=== PATIENT | female | born 1970 | race Caucasian/White ===

== ENCOUNTER 2019-10-31 17:13 | Emergency (ER) | payer MEDICAID, SELFPAY | END 2019-10-31 22:04 | disposition admitted as inpatient to this hospital (09) | LOC: ER 12-05 10:31 | PROVIDERS: Emergency Provider Emergency Medicine; Family Provider Nurse Practitioner; PCP Nurse Practitioner | DX: F41.9 Anxiety disorder, unspecified (principal); R45.851 Suicidal ideations; Z91.5 Personal history of self-harm | CPT/HCPCS: 80053; 80156; 80164; 80178; 80185; 80307; 81003; 81025; 84443; 85025; 93005; 99285; A9270 ==

== ENCOUNTER 2019-10-31 17:13 | Inpatient (IN) | payer MEDICAID, SELFPAY ==
[2019-10-31 15:44] VITALS: BP 134/80; PULSE 97; RESP 16; TEMP 36.8; O2SAT 94; BMI 40.3
--- NOTE | 2019-10-31 16:26 | ED_ITS ---
Entered by Julia Payne, acting as scribe for HPI - Psych General: Chief Complaint: Psychiatric Symptoms Stated Complaint: Anxiety/SI Time Seen by Provider: 10/31/19 16:26 Source: patient Mode of arrival: EMS Limitations: no limitations History of Present Illness: HPI Narrative: 49 yo female presents to ED with complaints of suicidal ideation. The patient said she wants to kill myself because her anxiety is so severe. The patient has a specific plan to slit throat. She said she has tried suicide in the past. MD complaint: suicidal ideation Onset (ago): day(s) Duration: constant History of same: Yes Relieving factors: none Exacerbating factors: none Context: significant life stressor (anxiety) Associated psychiatric symptoms: depression and suicidal ideation Treatments prior to arrival: none If self harm: admits thoughts of self harm and has plan (to cut throat with knife) Details of plan: plans to cut her throat with a knife Review of Systems General: Reports: other (negative unless marked) Const: Denies: fever, chills, body aches, fatigue, malaise or diaphoresis Eyes: Denies: change in vision or blurry vision ENMT: Denies: throat pain, painful swallowing, hoarseness, ear pain, ear discharge, Change in hearing or nasal discharge Card: Denies: chest pain, palpitations, irregular heart rhythm, syncope, pre-syncope, shortness of breath on exertion or shortness of breath when lying down Resp: Denies: shortness of breath, productive cough, non-productive cough, wheezing, coughing up blood or chest congestion GI: Denies: abdominal pain, nausea, vomiting, vomiting blood, coffee grounds in vomit, diarrhea, constipation, cramping, blood in stool or black tarry stool : Denies: flank pain, painful urination, urinary frequency, urinary urgency, decreased urine ouput, urinary incontinence or blood in urine Musc: Denies: neck pain, back pain, extremity pain, extremity swelling, joint pain, joint swelling, joint warmth or joint stiffness Skin/Breast: Denies: rash, skin tenderness or yellow skin Neuro: Denies: headache, numbness in extremities, weakness in extremities, changes in sensation, lack of coordination, difficulty walking, dizziness, vertigo or confusion Endo: Denies: excessive thirst, tired all the time, cold intolerance, excessive sweating, flushing or hot flashes Marlon/Lymph: Denies: easy bruising, easy bleeding, petechiae or enlarged lymph nodes All/Imm: Denies: hives, throat swelling, tongue swelling, facial swelling or acute wheezing PFSH ED PFSH: Statuses (acute, chronic, etc) shown below reflect problem list status as previously entered and may not be historically accurate Social History Smoking and tobacco status: never smoked Physical Exam Const: COMMON NORMALS: no apparent distress, oriented x3, no limitations, healthy appearing and well nourished EXAM LIMITATIONS: no altered mental status GENERAL APPEARANCE: cooperative, well kempt and well developed ORIENTATION/CONSCIOUSNESS: Yes awake HENMT: COMMON NORMALS: normocephalic, head/scalp atraumatic, hearing grossly normal bilaterally, external ears normal, EAC's normal, external nose normal and moist oral mucous membranes HEAD & SCALP: normal to inspection, normocephalic and atraumatic FACE & SINUS: normal facial exam and face symmetric NOSE: external nose normal and nares normal EXTERNAL EAR: Yes external ears normal EXTERNAL AUDITORY CANAL: EAC's normal MOUTH: oral and palatal mucosa normal and tongue normal Eye: COMMON NORMALS: PERRL, EOMs intact bilaterally, conjunctivae normal and no scleral icterus GENERAL EYE: normal appearance of both eyes and normal light reflex CONJUNCTIVA: Yes conjunctivae normal SCLERA: sclerae normal CORNEA: Yes corneas normal PUPIL: Yes PERRL DIRECT OPHTHALMOSCOPY: Yes normal light reflex Neck/C-Spine: COMMON NORMALS: full ROM, no lymphadenopathy, supple, no meningeal signs and no JVD GENERAL: Yes normal visual inspection and Yes trachea midline CERVICAL SPINE: Yes cervical ROM normal Chest: COMMONS NORMALS: inspection of chest normal and palpation of chest normal Resp: COMMON NORMALS: normal respiratory effort, no retractions, no use of accessory muscles and clear to auscultation bilaterally EFFORT & INSPECTION: Yes able to speak in complete sentences AUSCULTATION: clear to auscultation bilaterally Cardio: COMMON NORMALS: no JVD, regular rate, regular rhythm, S1 normal heart sound, S2 normal heart sound, no gallops, no clicks, no murmurs and no rub JUGULAR VENOUS DISTENTION: no JVD RATE: regular rate RHYTHM: regular rhythm HEART SOUNDS: S1 normal and S2 normal GI: COMMON NORMALS: soft to palpation, non-tender, no hepatosplenomegaly and no masses INSPECTION: Yes normal to inspection PALPATION: Yes soft and Yes no hepatosplenomegaly : COMMON NORMALS: Yes no CVA tenderness BLADDER/KIDNEY EXAM: Yes no CVA tenderness Back/Pelvis: COMMON NORMALS: no CVA tenderness, thoracic and lumbar spine normal to inspection, no thoracic nor lumbar tenderness and thoraco-lumbar ROM normal Extremity: COMMON NORMALS: normal to inspection, full ROM, normal capillary refill, no joint enlargement, no clubbing, cyanosis or edema and no calf tenderness Neuro: COMMON NORMALS: oriented x3, CN's II-XII intact bilaterally, moves all extremities, no focal motor deficits and no sensory deficits noted MENINGEAL SIGNS: Yes no meningeal signs Psych: COMMON NORMALS: mental status grossly normal, thought process normal, cooperative, affect normal, speech normal and activity/motor behavior normal APPEARANCE: Yes well kempt SPEECH: Yes normal speech THOUGHT PROCESS: normal thought process Skin: COMMON NORMALS: no rashes or lesions noted, skin turgor normal, no jaundice, no petechiae and no mottling GENERAL SKIN EXAM: no rashes or lesions noted and turgor normal MDM - Psych MDM Narrative: Medical decision making narrative: The case was reviewed with Dr. Kwong and he is agreeable to admit the patient under 96-hour hold as she has at least once now tried to run out of the ER. The hold has been placed and the case was reviewed with Dr. Kwong and he agrees to admission. Lab Data: Attestation: I reviewed the patient's lab results. Labs: Lab Results 10/31/19 10/31/19 10/31/19 Range/Units 17:22 17:22 17:22 WBC (4.0-10.0) 10^3/ uL RBC (4.1-5.3) 10^6/u L Hgb (11.5-15.3) g/dL Hct (37.0-47.0) % MCV (81-99) fL MCH (28.0-34.0) pg MCHC (30.0-36.0) g/dL RDW (12.1-15.1) % Plt Count (130-400) 10^3/c mm MPV (7.4-10.4) fL Neut % (Auto) % Lymph % (Auto) % Spencer % (Auto) % Eos % (Auto) % Baso % (Auto) % Neut # (Auto) (1.8-7.7) 10^3/u L Lymph # (Auto) (0.8-4.8) 10^3/u L Spencer # (Auto) (0.2-0.9) 10^3/u L Eos # (Auto) (0.0-0.8) 10^3/u L Baso # (Auto) (0.0-0.1) 10^3/u L Nucleated RBC % (a uto) % Nucleated RBCs # /100WBC Sodium (136-145) mmol/L Potassium (3.5-5.1) mmol/L Chloride (98-107) mmol/L Carbon Dioxide (22-29) mmol/L Anion Gap (5-19) BUN (6-20) mg/dL Creatinine (0.5-0.9) mg/dL GFR Calculation (90-130) mL/min Glucose (74-109) mg/dL Calcium (8.6-10.0) mg/Dl Total Bilirubin (0.15-1.2) mg/dL AST (0-32) U/L ALT (0-33) U/L Alkaline Phosphata se (35-105) IU/L Total Protein (6.6-8.7) g/dL Albumin (3.5-5.2) g/dL Globulin (1.3-4.6) g/dL TSH (0.27-4.20) uIU/ mL HCG, Qual Negative (Negative) Urine Color Yellow (Yellow) Urine Appearance Clear (CLEAR) Urine pH 5 (5-7) Ur Specific Gravit y 1.020 (1.005-1.030) Urine Protein 3+ H (Negative) Urine Glucose (UA) Norm (Normal) Urine Ketones 2+ H (Negative) Urine Occult Blood 2+ H (Negative) Urine Nitrate Negative (Negative) Urine Bilirubin Neg (NEGATIVE) Urine Urobilinogen Norm (Negative) mg/dL Ur Leukocyte Marlys ase Negative (Negative) Urine RBC 0-4 H (0-2) /hpf Urine WBC 0-4 H (0-5) /hpf Ur Squamous Epith Cells 5-10 H (0-5) Urine Bacteria 1+ H (NONE) Hyaline Casts 10-15 H Coarse Granular Ca sts 0-4 H /lpf Urine Mucus Trace Salicylates (3-10) mg/dL Urine Opiates Scre en Negative (Negative) ng/mL Acetaminophen (10-30) ug/mL Ur Barbiturates Sc reen Negative (Negative) ng/mL Phenytoin (10-20) ug/mL Valproic Acid (50-100) mcg/mL Carbamazepine (4.0-12.0) ug/mL Ur Phencyclidine S crn Negative (Negative) ng/mL Ur Amphetamines Sc reen Negative (Negative) ng/mL U Benzodiazepines Scrn Negative (Negative) ng/mL [place] (0.6-1.2) mmol/L Urine Cocaine Scre en Negative (Negative) ng/mL U Marijuana (THC) Screen Negative (Negative) ng/mL Ethyl Alcohol (0-10) mg/dL 10/31/19 10/31/19 10/31/19 Range/Units 17:25 17:25 17:25 WBC 9.3 (4.0-10.0) 10^3/ uL RBC 4.38 (4.1-5.3) 10^6/u L Hgb 11.8 (11.5-15.3) g/dL Hct 37.7 (37.0-47.0) % MCV 86.1 (81-99) fL MCH 26.9 L (28.0-34.0) pg MCHC 31.3 (30.0-36.0) g/dL RDW 18.5 H (12.1-15.1) % Plt Count 404 H (130-400) 10^3/c mm MPV 9.4 (7.4-10.4) fL Neut % (Auto) 80.6 % Lymph % (Auto) 10.7 % Spencer % (Auto) 7.7 % Eos % (Auto) 0.2 % Baso % (Auto) 0.6 % Neut # (Auto) 7.5 (1.8-7.7) 10^3/u L Lymph # (Auto) 1.0 (0.8-4.8) 10^3/u L Spencer # (Auto) 0.7 (0.2-0.9) 10^3/u L Eos # (Auto) 0.0 (0.0-0.8) 10^3/u L Baso # (Auto) 0.1 (0.0-0.1) 10^3/u L Nucleated RBC % (a uto) 0 % Nucleated RBCs # 0.0 /100WBC Sodium 138 (136-145) mmol/L Potassium 4.1 (3.5-5.1) mmol/L Chloride 98 (98-107) mmol/L Carbon Dioxide 17 L (22-29) mmol/L Anion Gap 27.1 H (5-19) BUN 11 (6-20) mg/dL Creatinine 0.7 (0.5-0.9) mg/dL GFR Calculation 89.7 L (90-130) mL/min Glucose 160 H (74-109) mg/dL Calcium 8.7 (8.6-10.0) mg/Dl Total Bilirubin 0.7 (0.15-1.2) mg/dL AST 45 H (0-32) U/L ALT 49 H (0-33) U/L Alkaline Phosphata se 161 H (35-105) IU/L Total Protein 7.4 (6.6-8.7) g/dL Albumin 4.2 (3.5-5.2) g/dL Globulin 3.2 (1.3-4.6) g/dL TSH 1.38 (0.27-4.20) uIU/ mL HCG, Qual (Negative) Urine Color (Yellow) Urine Appearance (CLEAR) Urine pH (5-7) Ur Specific Gravit y (1.005-1.030) Urine Protein (Negative) Urine Glucose (UA) (Normal) Urine Ketones (Negative) Urine Occult Blood (Negative) Urine Nitrate (Negative) Urine Bilirubin (NEGATIVE) Urine Urobilinogen (Negative) mg/dL Ur Leukocyte Marlys ase (Negative) Urine RBC (0-2) /hpf Urine WBC (0-5) /hpf Ur Squamous Epith Cells (0-5) Urine Bacteria (NONE) Hyaline Casts Coarse Granular Ca sts /lpf Urine Mucus Salicylates < 0.3 L (3-10) mg/dL Urine Opiates Scre en (Negative) ng/mL Acetaminophen < 5.0 L (10-30) ug/mL Ur Barbiturates Sc reen (Negative) ng/mL Phenytoin 0.8 L (10-20) ug/mL Valproic Acid 2.8 L (50-100) mcg/mL Carbamazepine 2.0 L (4.0-12.0) ug/mL Ur Phencyclidine S crn (Negative) ng/mL Ur Amphetamines Sc reen (Negative) ng/mL U Benzodiazepines Scrn (Negative) ng/mL [place] 0.1 L (0.6-1.2) mmol/L Urine Cocaine Scre en (Negative) ng/mL U Marijuana (THC) Screen (Negative) ng/mL Ethyl Alcohol 268 H (0-10) mg/dL EKG Data^: EKG 1: Attestation: I personally reviewed and interpreted this EKG as follows: (Normal sinus rhythm at 109 beats a minute, no acute ST or T wave changes, normal axis. Normal QTC.) Discharge Plan Discharge Patient Disposition: Admitted As Inpatient Admit Provider: Antonio Kwong Clinical Impression: Suicidal ideation Condition: Stable Referrals: Anahi Schulz FNP [Primary Care Provider] - Discharge Date/Time: 10/31/19 22:04 Coding Level of Care Code ED Qa Automation Developer for Chg F[employer] The documentation recorded by the Kerry schulz Valerie R, accurately reflects the service I personally performed and the decisions made by Felicitas khan Eli N
--- NOTE | 2019-10-31 16:30 | ECG_ITS ---
Measurements Intervals [place] Rate: 109 P: NC: 0 QRS: 63 QRSD: 97 T: 30 QT: 352 QTc: 475 Sinus tachycardia Lead V2 /V3 reversal ABNORMAL RHYTHM ECG Compared to ECG 10/12/2019 07:33:08 Sinus rhythm no longer present Electronically Signed On 11-01-2019 16:43:11 TECHNICAL SALES ASSOCIATE by Asher Saxena M.D. [email or web address]
[2019-10-31 17:30] LABS: Basophils # 0.1 10^3/uL (0.0-0.1); Basophils % 0.6 %; Eosinophils % 0.2 %; Hematocrit 37.7 % (37.0-47.0); Hemoglobin 11.8 g/dL (11.5-15.3); Lymphocytes % 10.7 %; Mean Corpuscular HGB Conc 31.3 g/dL (30.0-36.0); Mean Corpuscular Hemoglobin 26.9 pg (28.0-34.0); Mean Corpuscular Volume 86.1 fL (81-99); Mean Platelet Volume 9.4 fL (7.4-10.4); Monocytes # 0.7 10^3/uL (0.2-0.9); Monocytes % 7.7 %; Neutrophils # 7.5 10^3/uL (1.8-7.7); Neutrophils % 80.6 %; Nucleated Red Blood Cells % 0 %; Platelet Count 404 10^3/cmm (130-400); Red Blood Count 4.38 10^6/uL (4.1-5.3); Red Cell Distribution Width 18.5 % (12.1-15.1); White Blood Count 9.3 10^3/uL (4.0-10.0)
[2019-10-31 17:34] LABS: HCG Qualitative Urine. Negative (Negative)
[2019-10-31 17:47] LABS: Lithium 0.1 mmol/L (0.6-1.2)
[2019-10-31 17:52] LABS: Add Urine Microscopic? YES; Bilirubin Urine Neg (NEGATIVE); Blood Urine 2+ (Negative); Glucose Urine UA Norm (Normal); Ketones Urine 2+ (Negative); Leukocyte Esterase Urine Negative (Negative); Nitrate Urine Negative (Negative); Protein Urine 3+ (Negative); Urine Appearance Clear (CLEAR); Urine Color Yellow (Yellow); Urobilinogen Urine Norm (Negative); pH Urine 5 (5-7)
[2019-10-31 17:53] LABS: RBC Urine 0-4 /hpf (0-2); WBC Urine 0-4 /hpf (0-5)
[2019-10-31 17:54] LABS: Add Urine Culture? No; Bacteria Urine 1+; Coarse Granular Casts Urine 0-4 /lpf; Mucus Urine TRACE
[2019-10-31 18:02] LABS: Amphetamines Screen Urine Negative (Negative); Barbiturates Screen Urine Negative (Negative); Benzodiazepines Screen Urine Negative (Negative); Cocaine Screen Urine Negative (Negative); Opiate Screen Urine Negative (Negative); PCP Screen Urine Negative (Negative); THC Screen Urine Negative (Negative)
[2019-10-31 18:11] LABS: Alanine Aminotransferase 49 U/L (0-33); Albumin Level 4.2 g/dL (3.5-5.2); Alcohol Level 268 mg/dL (0-10); Alkaline Phosphatase 161 IU/L (35-105); Anion Gap 27.1 (5-19); Aspartate Amino Transferase 45 U/L (0-32); Blood Urea Nitrogen 11 mg/dL (6-20); Calcium 8.7 mg/Dl (8.6-10.0); Carbon Dioxide 17 mmol/L (22-29); Chloride 98 mmol/L (98-107); Globulin 3.2 g/dL (1.3-4.6); Glomerular Filtration Rate 89.7 mL/min (90-130); Glucose 160 mg/dL (74-109); Phenytoin Dilantin 0.8 ug/mL (10-20); Potassium 4.1 mmol/L (3.5-5.1); Sodium 138 mmol/L (136-145); Thyroid Stimulating Hormone 1.38 uIU/mL (0.27-4.20); Total Bilirubin 0.7 mg/dL (0.15-1.2); Total Protein 7.4 g/dL (6.6-8.7); Valproic Acid Level 2.8 mcg/mL (50-100)
[2019-10-31 18:12] LABS: Acetaminophen < 5.0 ug/mL (10-30); Salicylate < 0.3 mg/dL (3-10)
--- NOTE | 2019-10-31 18:20 | PC.NURSE ---
pt reports anxiety. pt still vomiting. ed provider notified. orders received.
[2019-10-31] MEDS: haloperidol inj 5 mg/mL INJ 1 mL IM (18:53)
[2019-10-31] MEDS: ondansetron 2 mg/ML SDV 2 mL 4 MG IVP (19:13)
[2019-10-31] MEDS: folic acid 1 MG, multivitamin inj 10 ML, thiamine 100 MG in sodium chloride 0.9% 1,000 ML 252.8 MG IV (19:14)
[2019-10-31 21:54] VITALS: BP 114/76; PULSE 88; RESP 18; TEMP 36.9; O2SAT 96
[2019-10-31 22:00] VITALS: BP 126/79; PULSE 110; RESP 17; TEMP 37.1; O2SAT 95
[2019-11-01] MEDS: ondansetron 4 MG Tablet PO (00:27)
[2019-11-01 06:00] VITALS: BP 135/75; PULSE 98; RESP 19; TEMP 37.9; O2SAT 98
[2019-11-01] MEDS: folic acid 1 mg Tablet PO (09:15)
[2019-11-01] MEDS: multivitamin therapeutic Tablet 1 TAB PO (09:15)
[2019-11-01] MEDS: thiamine 100 mg Tablet PO (09:15)
[2019-11-01] MEDS: hyDROXYzine 25 mg Capsule PO (09:15)
[2019-11-01 13:46] VITALS: BP 145/88; PULSE 81; RESP 18; TEMP 37; O2SAT 96
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
[2019-11-01 19:40] VITALS: BP 124/74; PULSE 77; RESP 19; TEMP 37.1; O2SAT 94
[2019-11-01] MEDS: prazosin 1 mg Capsule 2 MG PO (21:17)
[2019-11-01] MEDS: trazodone 50 mg Tablet PO (21:17)
[2019-11-02 06:00] VITALS: BP 121/81; PULSE 74; RESP 19; TEMP 36.9; O2SAT 96
[2019-11-02] MEDS: multivitamin therapeutic Tablet 1 TAB PO (08:37)
[2019-11-02] MEDS: thiamine 100 mg Tablet PO (08:37)
[2019-11-02] MEDS: folic acid 1 mg Tablet PO (08:37)
[2019-11-02] MEDS: hyDROXYzine 25 mg Capsule PO (08:37)
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
[2019-11-02] MEDS: escitalopram 10 mg Tablet PO (12:28)
[2019-11-02 14:00] VITALS: BP 121/81; RESP 19; TEMP 36.9; O2SAT 96
[2019-11-02 14:48] VITALS: BP 136/97; PULSE 87; RESP 20; TEMP 37; O2SAT 98
[2019-11-02 20:00] VITALS: BP 136/82; PULSE 78; RESP 18; TEMP 37.2; O2SAT 98
[2019-11-02] MEDS: prazosin 1 mg Capsule 2 MG PO (20:07)
[2019-11-02] MEDS: trazodone 50 mg Tablet PO (20:20)
[2019-11-03 05:56] VITALS: BP 125/86; PULSE 79; RESP 18; TEMP 36.4; O2SAT 95
[2019-11-03] MEDS: escitalopram 10 mg Tablet PO (08:15)
[2019-11-03] MEDS: folic acid 1 mg Tablet PO (08:15)
[2019-11-03] MEDS: multivitamin therapeutic Tablet 1 TAB PO (08:15)
[2019-11-03] MEDS: thiamine 100 mg Tablet PO (08:16)
[2019-11-03] MEDS: hyDROXYzine 25 mg Capsule PO (08:16)
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
--- NOTE | 2019-11-03 13:49 | PC.SOCIAL ---
medicaid transport trip #[id number]
== END 2019-11-03 14:18 | disposition home or self-care (01) | DRG 897 ==
LOC: ER 18:28 → NP 18:39
PROVIDERS: Admitting Provider Psychiatry & Neurology Psychiatry; Emergency Provider Emergency Medicine; Family Provider Nurse Practitioner; PCP Nurse Practitioner; Visit Provider Psychiatry & Neurology Psychiatry
DX: F10.229 Alcohol dependence with intoxication, unspecified (principal); R45.851 Suicidal ideations; F32.9 Major depressive disorder, single episode, unspecified; Y90.8 Blood alcohol level of 240 mg/100 ml or more
CPT/HCPCS: 12345; 80053; 80156; 80164; 80178; 80185; 80307; 81003; 81025; 84443; 85025; 93005; 96372; 96374; 96375; 99285; A9270; J1630; J2405; J3411; J3490; J7030; Q0162

== ENCOUNTER 2019-11-22 16:40 | Emergency (ER) | payer MEDICAID, SELFPAY ==
[2019-11-22 16:43] VITALS: BP 160/97; PULSE 105; RESP 18; TEMP 36.8; O2SAT 96; BMI 40.7
--- NOTE | 2019-11-22 16:49 | ED_ITS ---
Entered by Julia Payne, acting as scribe for Erwin Liu MD, [facility] HPI - Alcohol General: Chief Complaint: Alcohol Stated Complaint: ETOH Time Seen by Provider: 11/22/19 16:49 Source: patient, EMS and RN notes reviewed Mode of arrival: EMS Limitations: no limitations History of Present Illness: HPI narrative: 49 yo female presents to ED stating she needs help to quit drinking. She said she is really drunk on vodka and has been drinking since Sunday (11.18.2019). She said she hasn't been eating. She said she has R sided abdominal pain. She said she has vomited about 4 times today and denies diarrhea. 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 Chronic alcohol use: Yes Previous visits for alcohol intoxication: Yes Recent trauma: No Associated symptoms: Reports abdominal pain, nausea and vomiting Treatments prior to arrival: none Review of Systems General: Reports: 10 or more systems reviewed and unremarkable except in HPI and below Const: Denies: fever, chills or body aches Eyes: Reports: blind spots; Denies: change in vision or blurry vision ENMT: Denies: throat pain, enlarged tonsils, painful swallowing, hoarseness, mouth pain or swelling of lips/tongue Card: Reports: chest pain; Denies: palpitations, irregular heart rhythm, edema or swelling of feet/ankles Resp: Denies: shortness of breath, productive cough or non-productive cough GI: Reports: abdominal pain, nausea and vomiting : Denies: flank pain, difficulty urinating, painful urination, urinary frequency, urinary urgency or urinary hesitancy Musc: Reports: extremity pain (left shoulder), joint pain (left shoulder) and limited range of motion; Denies: neck pain, back pain or extremity swelling Skin/Breast: Denies: rash, itching or redness Neuro: Denies: headache, numbness in extremities or weakness in extremities Endo: Denies: excessive urination, excessive thirst or tired all the time PFSH ED PFSH: Statuses (acute, chronic, etc) shown below reflect problem list status as previously entered and may not be historically accurate Medical History (Updated 11/22/19 @ 20:49 by Erwin Liu MD, [facility]) Arthritis of right knee (Acute) Depressive disorder (Inactive) Hx of cholecystitis (Acute) Suicidal behavior without attempted self-injury (Acute) in the past Suicidal thoughts (Acute) in the past Surgical History (Updated 11/11/19 @ 16:53 by SOLEDAD Carlson) History of (Acute) Hx of gastric bypass (Acute) Hx of hernia repair (Acute) Hx of tubal ligation (Acute) Hx of unilateral salpingectomy (Acute) Right Social History Smoking and tobacco status: never smoked Alcohol intake: current Alcohol intake frequency: 0-2 Drinks per Day Alcohol type: hard liquor Desire information about alcohol rehabilitation?: Yes (wants to go to [facility] but can't stay sober ) Counseling given: Yes (patient has been in the ER for alcohol abuse ) Physical Exam Const: COMMON NORMALS: no apparent distress, average body habitus, oriented x3, no limitations, healthy appearing, alert and well nourished HENMT: COMMON NORMALS: normocephalic, head/scalp atraumatic and moist oral mucous membranes HEAD & SCALP: normocephalic and atraumatic Eye: COMMON NORMALS: PERRL, EOMs intact bilaterally, conjunctivae normal and no scleral icterus CONJUNCTIVA: Yes conjunctivae normal PUPIL: Yes PERRL Neck/C-Spine: COMMON NORMALS: full ROM, supple, no meningeal signs, no JVD and no carotid bruits Chest: COMMONS NORMALS: inspection of chest normal and palpation of chest normal Resp: COMMON NORMALS: normal respiratory effort, no retractions, no use of accessory muscles, clear to auscultation bilaterally and percussion normal AUSCULTATION: clear to auscultation bilaterally PERCUSSION: percussion normal Cardio: COMMON NORMALS: no JVD, regular rate, regular rhythm, S1 normal heart sound, S2 normal heart sound, no gallops, no clicks, no murmurs, no rub and peripheral pulses 2+ throughout RATE: regular rate RHYTHM: regular rhythm HEART SOUNDS: S1 normal and S2 normal PERIPHERAL PULSES: pulses 2+ throughout GI: COMMON NORMALS: normal to inspection, nondistended, normoactive bowel sounds, soft to palpation, non-tender, no hepatosplenomegaly, no masses and no bruits PALPATION: Yes soft and Yes no hepatosplenomegaly : COMMON NORMALS: Yes no CVA tenderness BLADDER/KIDNEY EXAM: Yes no CVA tenderness Back/Pelvis: COMMON NORMALS: no CVA tenderness Extremity: COMMON NORMALS: normal to inspection, full ROM, normal capillary refill, no calf tenderness and no pedal edema Neuro: COMMON NORMALS: oriented x3 SENSORIUM/ORIENTATION: Yes alert MENINGEAL SIGNS: Yes no meningeal signs Skin: COMMON NORMALS: no rashes or lesions noted, no wounds, skin turgor normal, no jaundice, no petechiae and no mottling GENERAL SKIN EXAM: no rashes or lesions noted and turgor normal Course Vital Signs: Vital signs: Vital Signs Temperature 98.2 F 11/22/19 16:43 Pulse Rate 128 H 11/22/19 21:49 Respiratory Rate 16 11/22/19 21:49 Blood Pressure 136/89 11/22/19 21:49 Pulse Oximetry 94 11/22/19 21:49 MDM - Alcohol MDM Narrative: Medical decision making narrative: 49-year-old female patient with a history of alcohol use disorder who presents today after a several day binge of vodka. She presents wanting help with her alcohol problem. Evaluation in the emergency department is unremarkable and she is discharged home with and advised to call the [facility] which is a detox program. This facility does not provide detoxification programs. She voiced understanding and states that she would call the [facility]. Medical Records: Attestation: I reviewed the patient's medical records. Lab Data: Attestation: I reviewed the patient's lab results. Labs: Lab Results 11/22/19 11/22/19 11/22/19 Range/Units 17:20 17:20 17:32 WBC 6.3 (4.0-10.0) 10^3/ uL RBC 4.55 (4.1-5.3) 10^6/u L Hgb 12.1 (11.5-15.3) g/dL Hct 38.6 (37.0-47.0) % MCV 84.8 (81-99) fL MCH 26.6 L (28.0-34.0) pg MCHC 31.3 (30.0-36.0) g/dL RDW 18.4 H (12.1-15.1) % Plt Count 304 (130-400) 10^3/c mm MPV 9.7 (7.4-10.4) fL Neut % (Auto) 78.6 % Lymph % (Auto) 14.7 % [place] % (Auto) 5.6 % Eos % (Auto) 0.2 % Baso % (Auto) 0.6 % Neut # (Auto) 4.9 (1.8-7.7) 10^3/u L Lymph # (Auto) 0.9 (0.8-4.8) 10^3/u L [place] # (Auto) 0.4 (0.2-0.9) 10^3/u L Eos # (Auto) 0.0 (0.0-0.8) 10^3/u L Baso # (Auto) 0.0 (0.0-0.1) 10^3/u L Nucleated RBC % (a uto) 0 % Nucleated RBCs # 0.0 /100WBC Sodium 141 (136-145) mmol/L Potassium 4.0 (3.5-5.1) mmol/L Chloride 99 (98-107) mmol/L Carbon Dioxide 21 L (22-29) mmol/L Anion Gap 25.0 H (5-19) BUN 12 (6-20) mg/dL Creatinine 0.5 (0.5-0.9) mg/dL GFR Calculation 132.2 H (90-130) mL/min Glucose 98 (74-109) mg/dL Calcium 8.8 (8.5-10.5) mg/dL Total Bilirubin 1.1 (0.15-1.2) mg/dL AST 66 H (0-32) U/L ALT 92 H (0-33) U/L Alkaline Phosphata se 206 H (35-105) IU/L Total Protein 7.5 (6.6-8.7) g/dL Albumin 4.2 (3.5-5.2) g/dL Globulin 3.3 (1.3-4.6) g/dL HCG, Qual Negative (Negative) Salicylates < 0.3 L (3-10) mg/dL Urine Opiates Scre en (Negative) ng/mL Acetaminophen < 5.0 L (10-30) ug/mL Ur Barbiturates Sc reen (Negative) ng/mL Ur Phencyclidine S crn (Negative) ng/mL Ur Amphetamines Sc reen (Negative) ng/mL U Benzodiazepines Scrn (Negative) ng/mL Urine Cocaine Scre en (Negative) ng/mL U Marijuana (THC) Screen (Negative) ng/mL Ethyl Alcohol 280 H (0-10) mg/dL 11/22/19 Range/Units 17:32 WBC (4.0-10.0) 10^3/ uL RBC (4.1-5.3) 10^6/u L Hgb (11.5-15.3) g/dL Hct (37.0-47.0) % MCV (81-99) fL MCH (28.0-34.0) pg MCHC (30.0-36.0) g/dL RDW (12.1-15.1) % Plt Count (130-400) 10^3/c mm MPV (7.4-10.4) fL Neut % (Auto) % Lymph % (Auto) % [place] % (Auto) % Eos % (Auto) % Baso % (Auto) % Neut # (Auto) (1.8-7.7) 10^3/u L Lymph # (Auto) (0.8-4.8) 10^3/u L [place] # (Auto) (0.2-0.9) 10^3/u L Eos # (Auto) (0.0-0.8) 10^3/u L Baso # (Auto) (0.0-0.1) 10^3/u L Nucleated RBC % (a uto) % Nucleated RBCs # /100WBC Sodium (136-145) mmol/L Potassium (3.5-5.1) mmol/L Chloride (98-107) mmol/L Carbon Dioxide (22-29) mmol/L Anion Gap (5-19) BUN (6-20) mg/dL Creatinine (0.5-0.9) mg/dL GFR Calculation (90-130) mL/min Glucose (74-109) mg/dL Calcium (8.5-10.5) mg/dL Total Bilirubin (0.15-1.2) mg/dL AST (0-32) U/L ALT (0-33) U/L Alkaline Phosphata se (35-105) IU/L Total Protein (6.6-8.7) g/dL Albumin (3.5-5.2) g/dL Globulin (1.3-4.6) g/dL HCG, Qual (Negative) Salicylates (3-10) mg/dL Urine Opiates Scre en Negative (Negative) ng/mL Acetaminophen (10-30) ug/mL Ur Barbiturates Sc reen Negative (Negative) ng/mL Ur Phencyclidine S crn Negative (Negative) ng/mL Ur Amphetamines Sc reen Negative (Negative) ng/mL U Benzodiazepines Scrn Negative (Negative) ng/mL Urine Cocaine Scre en Negative (Negative) ng/mL U Marijuana (THC) Screen Negative (Negative) ng/mL Ethyl Alcohol (0-10) mg/dL Discharge Plan Discharge Patient Disposition: Home, Self-Care Clinical Impression: Alcohol use disorder, severe, dependence Condition: Stable Prescriptions: Continued hydroxyzine pamoate [Vistaril] 25 mg capsule 25 mg PO BID PRNRF: 0 prazosin 2 mg capsule 2 mg PO ONCE RF: 0 Vivitrol 380 mg suspension,extended rel recon 380 mg IM ONCE RF: 0 ferrous sulfate 325 mg (65 mg iron) tablet 325 mg PO BID Qty: 60 RF: 5 diclofenac potassium 50 mg tablet 50 mg PO BID Qty: 60 RF: 2 escitalopram oxalate 10 mg Tablet 10 mg PO DAILY 30 Days Qty: 30 RF: 1 Discharge Orders: Discharge Order (Routine); Ordered 11/22/19 Ordered By: Erwin Liu Referrals: Anahi Schulz FNP [Primary Care Provider] - Patient Instructions: Abuse of Alcohol (ED) Activity Restrictions/Additional Instructions: Return for any new or worsening symptoms. Follow-up with your primary care provider within 3 days. Call the [facility] tomorrow and discuss an intake with them so they can help you with your alcohol abuse disorder. Discharge Date/Time: 11/22/19 21:53 Coding Level of Care Code ED Laser Engineer for Hannah Fulton The documentation recorded by the Kerry schulz Valerie R accurately reflects the service I personally performed and the decisions made by Alexa khan Adegoke I, MD, [facility] Nov 22, 2019 16:40
[2019-11-22] MEDS: ondansetron 2 mg/ML SDV 2 mL 4 MG IVP (17:14)
[2019-11-22 17:27] LABS: Basophils % 0.6 %; Eosinophils % 0.2 %; Hematocrit 38.6 % (37.0-47.0); Hemoglobin 12.1 g/dL (11.5-15.3); Lymphocytes # 0.9 10^3/uL (0.8-4.8); Lymphocytes % 14.7 %; Mean Corpuscular HGB Conc 31.3 g/dL (30.0-36.0); Mean Corpuscular Hemoglobin 26.6 pg (28.0-34.0); Mean Corpuscular Volume 84.8 fL (81-99); Mean Platelet Volume 9.7 fL (7.4-10.4); Monocytes # 0.4 10^3/uL (0.2-0.9); Monocytes % 5.6 %; Neutrophils # 4.9 10^3/uL (1.8-7.7); Neutrophils % 78.6 %; Nucleated Red Blood Cells % 0 %; Platelet Count 304 10^3/cmm (130-400); Red Blood Count 4.55 10^6/uL (4.1-5.3); Red Cell Distribution Width 18.4 % (12.1-15.1); White Blood Count 6.3 10^3/uL (4.0-10.0)
[2019-11-22 17:42] LABS: Alanine Aminotransferase 92 U/L (0-33); Albumin Level 4.2 g/dL (3.5-5.2); Alcohol Level 280 mg/dL (0-10); Alkaline Phosphatase 206 IU/L (35-105); Aspartate Amino Transferase 66 U/L (0-32); Blood Urea Nitrogen 12 mg/dL (6-20); Calcium 8.8 mg/dL (8.5-10.5); Carbon Dioxide 21 mmol/L (22-29); Chloride 99 mmol/L (98-107); Globulin 3.3 g/dL (1.3-4.6); Glomerular Filtration Rate 132.2 mL/min (90-130); Glucose 98 mg/dL (74-109); Sodium 141 mmol/L (136-145); Total Bilirubin 1.1 mg/dL (0.15-1.2); Total Protein 7.5 g/dL (6.6-8.7)
[2019-11-22 17:49] LABS: HCG Qualitative Urine. Negative (Negative)
[2019-11-22 17:56] LABS: Acetaminophen < 5.0 ug/mL (10-30); Salicylate < 0.3 mg/dL (3-10)
[2019-11-22] MEDS: folic acid 1 MG, multivitamin inj 10 ML, thiamine 100 MG in sodium chloride 0.9% 1,000 ML 252.8 MG IV (18:01)
--- NOTE | 2019-11-22 19:02 | PC.NURSE ---
REPORT RECEIVED FROM GERSON KEITA AND CARE TRANSFERRED TO GERSON ROTH
[2019-11-22 19:23] VITALS: PULSE 112; RESP 14; O2SAT 91
[2019-11-22 19:25] VITALS: BP 97/55
[2019-11-22 19:44] LABS: Amphetamines Screen Urine Negative (Negative); Barbiturates Screen Urine Negative (Negative); Benzodiazepines Screen Urine Negative (Negative); Cocaine Screen Urine Negative (Negative); Opiate Screen Urine Negative (Negative); PCP Screen Urine Negative (Negative); THC Screen Urine Negative (Negative)
[2019-11-22 21:49] VITALS: BP 136/89; PULSE 128; RESP 16; O2SAT 94
== END 2019-11-22 21:53 | disposition home or self-care (01) ==
PROVIDERS: Emergency Provider Family Medicine; Family Provider Nurse Practitioner; PCP Nurse Practitioner
DX: F10.20 Alcohol dependence, uncomplicated (principal); Y90.8 Blood alcohol level of 240 mg/100 ml or more
CPT/HCPCS: 36415; 80053; 80307; 81025; 85025; 96360; 96361; 96374; 99283; J2405; J3411; J3490; J7030

== ENCOUNTER → 2019-11-24 15:37 | Outpatient (BNVA) | payer MEDICAID, SELFPAY | PROVIDERS: Family Provider Nurse Practitioner; PCP Nurse Practitioner; Visit Provider Nurse Practitioner Psychiatric/Mental Health | DX: F10.20 Alcohol dependence, uncomplicated (principal); F43.12 Post-traumatic stress disorder, chronic | CPT/HCPCS: 99214 ==

== ENCOUNTER → 2019-12-03 15:25 | Outpatient (BNVA) | payer MEDICAID, SELFPAY | PROVIDERS: Family Provider Nurse Practitioner; PCP Nurse Practitioner; Visit Provider Social Worker Clinical | DX: F43.12 Post-traumatic stress disorder, chronic (principal); F10.20 Alcohol dependence, uncomplicated | CPT/HCPCS: 90834 ==

== ENCOUNTER 2019-12-13 18:08 | Emergency (ER) | payer MEDICAID, SELFPAY | END 2019-12-13 23:57 | disposition admitted as inpatient to this hospital (09) | LOC: ER 01-19 07:21 | PROVIDERS: Emergency Provider Family Medicine; Family Provider Nurse Practitioner; PCP Nurse Practitioner | DX: F31.9 Bipolar disorder, unspecified (principal); F10.220 Alcohol dependence with intoxication, uncomplicated; Y90.8 Blood alcohol level of 240 mg/100 ml or more; R45.851 Suicidal ideations | CPT/HCPCS: 76705; 80048; 80053; 80306; 80307; 81001; 81025; 83690; 84443; 85025; 96361; 96374; 96375; 96376; 99284; 99285; J2405; J7030 ==

== ENCOUNTER 2019-12-13 18:08 | Inpatient (IN) | payer MEDICAID, SELFPAY ==
[2019-12-13 18:13] VITALS: BMI 39.5
--- NOTE | 2019-12-13 18:15 | ED_ITS ---
Entered by Yael Wilde, acting as scribe for Aldo Jenkins DO HPI - Psych General: Chief Complaint: Psychiatric Symptoms Stated Complaint: SI; ETOH Time Seen by Provider: 12/13/19 18:14 Source: patient Mode of arrival: EMS Limitations: no limitations History of Present Illness: HPI Narrative: 49 yo Female presents to ED with complaint of suicidal ideation and ETOH. Pt states that she found out that her mom on Sunday and she has been drinking ever since. Pt states that she is suicidal and has a plan to cut herself. MD complaint: suicidal ideation Onset (ago): week(s) Duration: constant History of same: Yes Relieving factors: none Exacerbating factors: none Context: recent alcohol abuse and significant life stressor Associated psychiatric symptoms: suicidal ideation Associated symptoms: Reports depression and suicidal ideation; Deny auditory hallucinations, delusions or homicidal ideation If self harm: admits thoughts of self harm and has plan Review of Systems Const: Denies: fever, chills, body aches, fatigue, malaise or night sweats Eyes: Denies: change in vision or blurry vision ENMT: Denies: throat pain, oral sores/lesions, dental pain, nasal discharge or nasal congestion Card: Denies: chest pain, palpitations, irregular heart rhythm, edema, syncope, shortness of breath on exertion, shortness of breath when lying down or leg pain with exertion Resp: Denies: shortness of breath, productive cough, non-productive cough or wheezing GI: Denies: abdominal pain, nausea, vomiting, vomiting blood, coffee grounds in vomit, difficulty swallowing, heartburn/indigestion, diarrhea, constipation, cramping, blood in stool or black tarry stool : Denies: flank pain, painful urination, urinary frequency, urinary urgency, urinary incontinence or blood in urine Musc: Denies: neck pain, back pain, extremity pain, extremity swelling, joint pain or joint swelling Skin/Breast: Denies: rash, itching or redness Neuro: Denies: headache, numbness in extremities, weakness in extremities, changes in sensation, lack of coordination, difficulty walking, frequent falls, dizziness, vertigo or confusion Psych: Reports: depression and suicidal ideation; Denies: auditory hallucinations or homicidal ideation Endo: Denies: excessive urination, excessive thirst, tired all the time or cold intolerance Marlon/Lymph: Denies: easy bruising, easy bleeding, petechiae, enlarged lymph nodes or tender lymph nodes PFSH ED PFSH: Medical History (Updated 12/15/19 @ 14:57 by Aldo Jenkins DO) Alcohol intoxication Arthritis of right knee Dehydration Depressive disorder Hx of cholecystitis Suicidal behavior without attempted self-injury in the past Suicidal thoughts in the past Surgical History History of Hx of gastric bypass Hx of hernia repair Hx of tubal ligation Hx of unilateral salpingectomy Right Family History Other Diabetes Heart disease Social History Smoking and tobacco status: never smoked Alcohol intake: current Alcohol intake frequency: 0-2 Drinks per Day Alcohol type: hard liquor Desire information about alcohol rehabilitation?: Yes (wants to go to [facility] but can't stay sober ) Counseling given: Yes (patient has been in the ER for alcohol abuse ) Physical Exam Const: COMMON NORMALS: average body habitus, oriented x3 and alert GENERAL APPEARANCE: cooperative, comfortable, well kempt and well developed NUTRITIONAL APPEARANCE: obese ORIENTATION/CONSCIOUSNESS: Yes awake, Yes oriented to person and Yes oriented to place HENMT: COMMON NORMALS: normocephalic, head/scalp atraumatic, EAC's normal, TM's normal bilaterally, external nose normal, moist oral mucous membranes and oropharynx normal HEAD & SCALP: normocephalic and atraumatic NOSE: external nose normal EXTERNAL AUDITORY CANAL: EAC's normal TYMPANIC MEMBRANE: TM's normal bilaterally MOUTH: oral and palatal mucosa normal, lip normal and tongue normal THROAT: posterior oropharynx normal and tonsils normal Eye: COMMON NORMALS: PERRL, EOMs intact bilaterally, conjunctivae normal and no scleral icterus CONJUNCTIVA: Yes conjunctivae normal PUPIL: Yes PERRL Neck/C-Spine: COMMON NORMALS: full ROM, no lymphadenopathy, supple, no meningeal signs and thyroid normal THYROID: thyroid normal and asymmetrical Lymph: LYMPHATIC: no lymphadenopathy noted Resp: COMMON NORMALS: normal respiratory effort, no retractions, no use of accessory muscles and clear to auscultation bilaterally AUSCULTATION: clear to auscultation bilaterally Cardio: COMMON NORMALS: regular rate and regular rhythm RATE: regular rate RHYTHM: regular rhythm HEART SOUNDS: no murmurs GI: COMMON NORMALS: normal to inspection, nondistended, normoactive bowel sounds, soft to palpation and no hepatosplenomegaly PALPATION: Yes soft and Yes no hepatosplenomegaly : COMMON NORMALS: Yes no CVA tenderness BLADDER/KIDNEY EXAM: Yes no CVA tenderness Back/Pelvis: COMMON NORMALS: no CVA tenderness LUMBAR SPINE/LOWER BACK: Yes normal to inspection Extremity: COMMON NORMALS: no clubbing, cyanosis or edema, no calf tenderness and no pedal edema Neuro: COMMON NORMALS: oriented x3 SENSORIUM/ORIENTATION: Yes alert, Yes oriented to person and Yes oriented to place MENINGEAL SIGNS: Yes no meningeal signs Psych: APPEARANCE: Yes well kempt THOUGHT CONTENT: No delusion(s) Skin: COMMON NORMALS: no rashes or lesions noted and skin turgor normal GENERAL SKIN EXAM: no rashes or lesions noted and turgor normal MDM - Psych Lab Data: Labs: Lab Results 12/13/19 12/13/19 12/13/19 Range/Units 18:50 18:50 18:50 WBC 6.1 (4.0-10.0) 10^3/ uL RBC 4.23 (4.1-5.3) 10^6/u L Hgb 11.5 (11.5-15.3) g/dL Hct 36.5 L (37.0-47.0) % MCV 86.3 (81-99) fL MCH 27.2 L (28.0-34.0) pg MCHC 31.5 (30.0-36.0) g/dL RDW 18.1 H (12.1-15.1) % Plt Count 169 (130-400) 10^3/c mm MPV 9.1 (7.4-10.4) fL Neut % (Auto) 83.2 % Lymph % (Auto) 11.2 % Dodge % (Auto) 4.9 % Eos % (Auto) 0.2 % Baso % (Auto) 0.3 % Neut # (Auto) 5.1 (1.8-7.7) 10^3/u L Lymph # (Auto) 0.7 L (0.8-4.8) 10^3/u L Dodge # (Auto) 0.3 (0.2-0.9) 10^3/u L Eos # (Auto) 0.0 (0.0-0.8) 10^3/u L Baso # (Auto) 0.0 (0.0-0.1) 10^3/u L Nucleated RBC % (a uto) 0 % Nucleated RBCs # 0.0 /100WBC Sodium 134 L (136-145) mmol/L Potassium 4.4 (3.5-5.1) mmol/L Chloride 91 L (98-107) mmol/L Carbon Dioxide 21 L (22-29) mmol/L Anion Gap 26.4 H (5-19) BUN 9 (6-20) mg/dL Creatinine 0.6 (0.5-0.9) mg/dL GFR Calculation 107.2 (90-130) mL/min Glucose 110 (65-115) mg/dL Calculated Osmolal ity (285-295) mOsm/k g Calcium 8.5 (8.5-10.5) mg/dL Total Bilirubin 2.6 H (0.15-1.2) mg/dL AST 94 H (0-32) U/L ALT 76 H (0-33) U/L Alkaline Phosphata se 222 H (35-105) IU/L Total Protein 7.3 (6.6-8.7) g/dL Albumin 4.0 (3.5-5.2) g/dL Globulin 3.3 (1.3-4.6) g/dL Lipase 17 (13-60) U/L TSH 1.54 (0.27-4.20) uIU/ mL HCG, Qual (Negative) Urine Color (Yellow) Urine Appearance (CLEAR) Urine pH (5-7) Ur Specific Gravit y (1.005-1.030) Urine Protein (Negative) Urine Glucose (UA) (Normal) Urine Ketones (Negative) Urine Blood (Negative) Urine Nitrate (Negative) Urine Bilirubin (NEGATIVE) Urine Urobilinogen (Negative) mg/dL Ur Leukocyte Marlys ase (Negative) Urine RBC (0-2) /hpf Urine WBC (0-5) /hpf Ur Squamous Epith Cells (0-5) Urine Bacteria (NONE) Salicylates < 0.3 L (3-10) mg/dL Urine Opiates Scre en (Negative) ng/mL Acetaminophen < 5.0 L (10-30) ug/mL Ur Barbiturates Sc reen (Negative) ng/mL Ur Phencyclidine S crn (Negative) ng/mL Ur Amphetamines Sc reen (Negative) ng/mL U Benzodiazepines Scrn (Negative) ng/mL Urine Cocaine Scre en (Negative) ng/mL U Marijuana (THC) Screen (Negative) ng/mL Ethyl Alcohol 413 H* (0-10) mg/dL 12/13/19 12/13/19 12/13/19 Range/Units 19:06 19:06 19:06 WBC (4.0-10.0) 10^3/ uL RBC (4.1-5.3) 10^6/u L Hgb (11.5-15.3) g/dL Hct (37.0-47.0) % MCV (81-99) fL MCH (28.0-34.0) pg MCHC (30.0-36.0) g/dL RDW (12.1-15.1) % Plt Count (130-400) 10^3/c mm MPV (7.4-10.4) fL Neut % (Auto) % Lymph % (Auto) % Dodge % (Auto) % Eos % (Auto) % Baso % (Auto) % Neut # (Auto) (1.8-7.7) 10^3/u L Lymph # (Auto) (0.8-4.8) 10^3/u L Dodge # (Auto) (0.2-0.9) 10^3/u L Eos # (Auto) (0.0-0.8) 10^3/u L Baso # (Auto) (0.0-0.1) 10^3/u L Nucleated RBC % (a uto) % Nucleated RBCs # /100WBC Sodium (136-145) mmol/L Potassium (3.5-5.1) mmol/L Chloride (98-107) mmol/L Carbon Dioxide (22-29) mmol/L Anion Gap (5-19) BUN (6-20) mg/dL Creatinine (0.5-0.9) mg/dL GFR Calculation (90-130) mL/min Glucose (65-115) mg/dL Calculated Osmolal ity (285-295) mOsm/k g Calcium (8.5-10.5) mg/dL Total Bilirubin (0.15-1.2) mg/dL AST (0-32) U/L ALT (0-33) U/L Alkaline Phosphata se (35-105) IU/L Total Protein (6.6-8.7) g/dL Albumin (3.5-5.2) g/dL Globulin (1.3-4.6) g/dL Lipase (13-60) U/L TSH (0.27-4.20) uIU/ mL HCG, Qual Negative (Negative) Urine Color Yellow (Yellow) Urine Appearance Sl cloudy A (CLEAR) Urine pH 5 (5-7) Ur Specific Gravit y 1.010 (1.005-1.030) Urine Protein 1+ H (Negative) Urine Glucose (UA) Norm (Normal) Urine Ketones 1+ H (Negative) Urine Blood 2+ H (Negative) Urine Nitrate Negative (Negative) Urine Bilirubin Neg (NEGATIVE) Urine Urobilinogen 1 H (Negative) mg/dL Ur Leukocyte Marlys ase Negative (Negative) Urine RBC 0-4 H (0-2) /hpf Urine WBC 0-4 H (0-5) /hpf Ur Squamous Epith Cells 5-10 H (0-5) Urine Bacteria 1+ H (NONE) Salicylates (3-10) mg/dL Urine Opiates Scre en Negative (Negative) ng/mL Acetaminophen (10-30) ug/mL Ur Barbiturates Sc reen Negative (Negative) ng/mL Ur Phencyclidine S crn Negative (Negative) ng/mL Ur Amphetamines Sc reen Negative (Negative) ng/mL U Benzodiazepines Scrn Negative (Negative) ng/mL Urine Cocaine Scre en Negative (Negative) ng/mL U Marijuana (THC) Screen Negative (Negative) ng/mL Ethyl Alcohol (0-10) mg/dL 12/13/19 Range/Units 21:40 WBC (4.0-10.0) 10^3/ uL RBC (4.1-5.3) 10^6/u L Hgb (11.5-15.3) g/dL Hct (37.0-47.0) % MCV (81-99) fL MCH (28.0-34.0) pg MCHC (30.0-36.0) g/dL RDW (12.1-15.1) % Plt Count (130-400) 10^3/c mm MPV (7.4-10.4) fL Neut % (Auto) % Lymph % (Auto) % Dodge % (Auto) % Eos % (Auto) % Baso % (Auto) % Neut # (Auto) (1.8-7.7) 10^3/u L Lymph # (Auto) (0.8-4.8) 10^3/u L Dodge # (Auto) (0.2-0.9) 10^3/u L Eos # (Auto) (0.0-0.8) 10^3/u L Baso # (Auto) (0.0-0.1) 10^3/u L Nucleated RBC % (a uto) % Nucleated RBCs # /100WBC Sodium 135 L (136-145) mmol/L Potassium 4.4 (3.5-5.1) mmol/L Chloride 91 L (98-107) mmol/L Carbon Dioxide 23 (22-29) mmol/L Anion Gap 25.4 H (5-19) BUN 10 (6-20) mg/dL Creatinine 0.5 (0.5-0.9) mg/dL GFR Calculation 132.2 H (90-130) mL/min Glucose 108 (65-115) mg/dL Calculated Osmolal ity 277 L (285-295) mOsm/k g Calcium 8.4 L (8.5-10.5) mg/dL Total Bilirubin (0.15-1.2) mg/dL AST (0-32) U/L ALT (0-33) U/L Alkaline Phosphata se (35-105) IU/L Total Protein (6.6-8.7) g/dL Albumin (3.5-5.2) g/dL Globulin (1.3-4.6) g/dL Lipase (13-60) U/L TSH (0.27-4.20) uIU/ mL HCG, Qual (Negative) Urine Color (Yellow) Urine Appearance (CLEAR) Urine pH (5-7) Ur Specific Gravit y (1.005-1.030) Urine Protein (Negative) Urine Glucose (UA) (Normal) Urine Ketones (Negative) Urine Blood (Negative) Urine Nitrate (Negative) Urine Bilirubin (NEGATIVE) Urine Urobilinogen (Negative) mg/dL Ur Leukocyte Marlys ase (Negative) Urine RBC (0-2) /hpf Urine WBC (0-5) /hpf Ur Squamous Epith Cells (0-5) Urine Bacteria (NONE) Salicylates (3-10) mg/dL Urine Opiates Scre en (Negative) ng/mL Acetaminophen (10-30) ug/mL Ur Barbiturates Sc reen (Negative) ng/mL Ur Phencyclidine S crn (Negative) ng/mL Ur Amphetamines Sc reen (Negative) ng/mL U Benzodiazepines Scrn (Negative) ng/mL Urine Cocaine Scre en (Negative) ng/mL U Marijuana (THC) Screen (Negative) ng/mL Ethyl Alcohol (0-10) mg/dL Discharge Plan Discharge Admit Provider: Davina Hernandez Clinical Impression: Suicidal ideation, Alcohol use disorder, severe, dependence, Bipolar disorder Condition: Stable 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: ED Discharge Assessment Last Done: 12/13/19 23:52 Discharge Date/Time: 12/13/19 23:57 Coding Level of Care Code ED Ict Customer Support Officer for Chg Fwd Exam Comprehensive The documentation recorded by the Andry schulz Carmen, accurately reflects the service I personally performed and the decisions made by Alice khan Curtis L, Dec 13, 2019 18:08
[2019-12-13 18:18] VITALS: BP 133/67; PULSE 102; RESP 18; TEMP 36.6; O2SAT 99
[2019-12-13 19:01] LABS: Basophils % 0.3 %; Eosinophils % 0.2 %; Hematocrit 36.5 % (37.0-47.0); Hemoglobin 11.5 g/dL (11.5-15.3); Lymphocytes # 0.7 10^3/uL (0.8-4.8); Lymphocytes % 11.2 %; Mean Corpuscular HGB Conc 31.5 g/dL (30.0-36.0); Mean Corpuscular Hemoglobin 27.2 pg (28.0-34.0); Mean Corpuscular Volume 86.3 fL (81-99); Mean Platelet Volume 9.1 fL (7.4-10.4); Monocytes # 0.3 10^3/uL (0.2-0.9); Monocytes % 4.9 %; Neutrophils # 5.1 10^3/uL (1.8-7.7); Neutrophils % 83.2 %; Nucleated Red Blood Cells % 0 %; Platelet Count 169 10^3/cmm (130-400); Red Blood Count 4.23 10^6/uL (4.1-5.3); Red Cell Distribution Width 18.1 % (12.1-15.1); White Blood Count 6.1 10^3/uL (4.0-10.0)
[2019-12-13 19:20] LABS: HCG Qualitative Urine. Negative (Negative)
[2019-12-13 19:25] LABS: Alanine Aminotransferase 76 U/L (0-33); Alkaline Phosphatase 222 IU/L (35-105); Anion Gap 26.4 (5-19); Aspartate Amino Transferase 94 U/L (0-32); Blood Urea Nitrogen 9 mg/dL (6-20); Calcium 8.5 mg/dL (8.5-10.5); Carbon Dioxide 21 mmol/L (22-29); Chloride 91 mmol/L (98-107); Globulin 3.3 g/dL (1.3-4.6); Glomerular Filtration Rate 107.2 mL/min (90-130); Glucose 110 mg/dL (65-115); Potassium 4.4 mmol/L (3.5-5.1); Sodium 134 mmol/L (136-145); Thyroid Stimulating Hormone 1.54 uIU/mL (0.27-4.20); Total Bilirubin 2.6 mg/dL (0.15-1.2); Total Protein 7.3 g/dL (6.6-8.7)
[2019-12-13 19:32] LABS: Add Urine Culture? No; Add Urine Microscopic? YES; Bacteria Urine 1+; Bilirubin Urine Neg (NEGATIVE); Blood Urine 2+ (Negative); Glucose Urine UA Norm (Normal); Ketones Urine 1+ (Negative); Leukocyte Esterase Urine Negative (Negative); Nitrate Urine Negative (Negative); Protein Urine 1+ (Negative); RBC Urine 0-4 /hpf (0-2); Urine Color Yellow (Yellow); Urobilinogen Urine 1 mg/dL (Negative); WBC Urine 0-4 /hpf (0-5); pH Urine 5 (5-7)
[2019-12-13 19:33] LABS: Acetaminophen < 5.0 ug/mL (10-30); Salicylate < 0.3 mg/dL (3-10)
[2019-12-13 19:34] LABS: Alcohol Level 413 mg/dL (0-10)
[2019-12-13 19:34] LABS: Amphetamines Screen Urine Negative (Negative); Barbiturates Screen Urine Negative (Negative); Benzodiazepines Screen Urine Negative (Negative); Cocaine Screen Urine Negative (Negative); Opiate Screen Urine Negative (Negative); PCP Screen Urine Negative (Negative); THC Screen Urine Negative (Negative)
--- NOTE | 2019-12-13 19:38 | US_ITS ---
WS: [id number] ABDOMINAL ULTRASOUND LIMITED REASON FOR VISIT: elevated T bili and alk phos TECHNIQUE: Grayscale and Doppler ultrasound examination of the abdomen. FINDINGS: Pancreas: The pancreas appears to be within normal limits Abdominal aorta and IVC: Appears normal. Liver: Liver measures 13.0 cm in length. Coarse echo pattern consistent with fatty infiltration. Mild ly dilated intrahepatic ducts. Status post cholecystectomy. The common bile duct measured 0.97 cm no lesions in the ducts are seen. Right kidney: Right kidney measures 12.1 cm x 5.4 cm x 5.2 cm. Right kidney cortex measures the violet x of the right kidney measured 1.60 cm. cm. No hydronephrosis no stones. US/US gall bladder [id number] IMPRESSION: Mildly dilated common bile duct and intrahepatic ducts. Status post cholecystectomy. Fatty infiltration of the liver.
[2019-12-13] MEDS: sodium chloride 0.9% 1,000 ML 999 ML IV (20:45)
[2019-12-13] MEDS: ondansetron 2 mg/ML SDV 2 mL 4 MG IVP (21:15)
[2019-12-13 22:06] LABS: Anion Gap 25.4 (5-19); Blood Urea Nitrogen 10 mg/dL (6-20); Calcium 8.4 mg/dL (8.5-10.5); Carbon Dioxide 23 mmol/L (22-29); Chloride 91 mmol/L (98-107); Glomerular Filtration Rate 132.2 mL/min (90-130); Glucose 108 mg/dL (65-115); Osmolality Calculated 277 mOsm/kg (285-295); Potassium 4.4 mmol/L (3.5-5.1); Sodium 135 mmol/L (136-145)
--- NOTE | 2019-12-13 22:58 | P.HP_ITS ---
Providers/Chief Complaint Admitting Physician: Davina Hernandez MD Primary Care Provider: SOLEDAD Carlson Chief Complaint: acute etoh intox;suicidal ideation;96 hour hold History of Present Illness Yeimy Perry is a 49 year old with recurrent inpatient [facility] admissions for alcohol abuse, reported lethality and alcohol intoxication or withdrawal. She presents today c/o drinking continuously since Sunday(today is Sunday) and having thoughts about hurting herself with a knife. Said she needed help with suicidal thoughts and her tremors that were starting, hence came to ER. Multiple episodes of nausea and vomiting+. No hematemesis. No kosta or BRPR. C/o chronic epigastric and RUQ pain ongoing since 4 months. Bedsise US performed in ER per verbal report shows liver cirrhosis. She is s/p cholecystectomy. Other notable labs upon admission are anion gap 25 (chronic), mild hyponatremia and hypochloremia, transaminitis AST 94, ALT 76, ALP 222 (chronic), T. bili 2.6, higher than at previous admissions. Tylenol level <5, alcohol level 413. No h/o fever. Abd/pelvis CT from 04/2019 showed normal liver. Unknown hepatitis serology status Review of Systems General: Reports: 10 or more systems reviewed and unremarkable except in HPI and below Const: Denies: fever, chills or body aches Eyes: Denies: change in vision, blurry vision or photophobia ENMT: Reports: hoarseness; Denies: throat pain, enlarged tonsils, painful swallowing or nasal congestion Card: Denies: chest pain, palpitations, irregular heart rhythm, edema, swelling of feet/ankles, lightheadedness, pre-syncope, shortness of breath on exertion or shortness of breath when lying down Resp: Denies: shortness of breath, productive cough, non-productive cough, wheezing, stridor, pain on inspiration, change in phlegm color, coughing up blood or chest congestion GI: Reports: abdominal pain, nausea, vomiting and diarrhea; Denies: vomiting blood, coffee grounds in vomit, difficulty swallowing, heartburn/indigestion, constipation, cramping, change in stool character, blood in stool or black tarry stool : Denies: flank pain, difficulty urinating, painful urination, urinary frequency, urinary urgency, urinary hesitancy or blood in urine Musc: Denies: neck pain, back pain, extremity pain, joint swelling, joint warmth or deformity Neuro: Denies: headache, numbness in extremities, weakness in extremities, changes in sensation, difficulty walking, frequent falls, dizziness, vertigo, behavioral changes, slurred speech or seizure-like activity Psych: Denies: anxiety, depression, suicidal ideation or homicidal ideation Endo: Denies: excessive urination, excessive thirst, tired all the time, cold intolerance or hot flashes Marlon/Lymph: Denies: easy bruising or easy bleeding Medications/Allergies Allergies Allergy/AdvReac Type Severity Reaction Status Date / Time acetaminophen [From Rodney] Allergy ADR-Itching Verified 11/11/19 15:37 hydrocodone [From Rodney] Allergy ADR-Itching Verified 12/13/19 18:22 PFSH Acute PFSH: Medical History Arthritis of right knee Depressive disorder Hx of cholecystitis Suicidal behavior without attempted self-injury in the past Suicidal thoughts in the past Surgical History History of Hx of gastric bypass Hx of hernia repair Hx of tubal ligation Hx of unilateral salpingectomy Right Family History Other Diabetes Heart disease Social History Smoking and tobacco status: never smoked Alcohol intake: current Alcohol intake frequency: 0-2 Drinks per Day Alcohol type: hard liquor Desire information about alcohol rehabilitation?: Yes (wants to go to [facility] but can't stay sober ) Counseling given: Yes (patient has been in the ER for alcohol abuse ) Vitals/I&O/Wt Last Vital Signs Temp 97.8 F 12/13/19 18:18 Pulse 102 H 12/13/19 18:18 Resp 18 12/13/19 18:18 BP 133/67 12/13/19 18:18 Pulse Ox 99 12/13/19 18:18 Weight last 48 hrs Weight 117.934 kg Physical Exam Narrative: EXAM NARRATIVE: GEN: Awake, alert and oriented, starting to have fine tremors in B/L hands CVS: S1S2 N RS: CTA B/L Abd: Soft, nt/nd , bs+ SCREED PERSON: no focal neuro deficits EXT: 1+ LE pitting edema Data : 12/13/19 18:50 12/13/19 21:40 A&P Assessment and plan (1) Alcohol use disorder, severe, dependence: Status: Acute Code(s): F10.20 - Alcohol dependence, uncomplicated (2) Alcohol intoxication: Status: Acute Code(s): F10.929 - Alcohol use, unspecified with intoxication, unspecified (3) Alcohol withdrawal: Status: Acute Code(s): F10.239 - Alcohol dependence with withdrawal, unspecified (4) Dehydration: Status: Acute Code(s): E86.0 - Dehydration Additional A&P Information Admit to ICU in view of alcohol intoxication, now starting to experience withdrawal Currently on 96 hr hold due to reported suicidal ideation Start Ativan per [facility] protocol for withdrawal Labs c/w dehydration likely from Gi losses from multiple episodes of vomiting start D5NS with added thiamine and MV Thiamine 100mg po daily aspiration precautions,, seizure precautions Chronic abdominal pain, likely 2/2 excessive vomiting. US performed at bedside today with cirrhosis per verbal report. Final report pending Transmainitis likely in view of cirrhosis, most likely due to alcohol abuse. Will check INR, hepatitis serologies NPU contacted from ER- in view of high risk of withdrawal, recommended medicine admit followed by psych assessment tomorrow. DVT ppx: lovenox Full code Attestations Medical Necessity Statement*: 96 hour hold in view of alcohol intoxication, now showing signs of withdrawal, suicidal ideation Coding Level of Care Code Acute Professional Employer Consultant for Hannah Fulton Diagnoses Alcohol use disorder, severe, dependence F10.20 Alcohol intoxication F10.929 Alcohol withdrawal F10.239 Dehydration E86.0
[2019-12-13 23:20] LABS: Lipase 17 U/L (13-60)
[2019-12-13] MEDS: LORazepam 2 mg/mL INJ 1 mL IVP (23:42)
[2019-12-13 23:52] VITALS: BP 142/75; PULSE 74; RESP 16; O2SAT 99
[2019-12-14] VITALS (23 sets, daily range): BP systolic 108–138; BP diastolic 58–92; PULSE 68–111; RESP 12–26; TEMP 36.8–37.2; O2SAT 87–98
[2019-12-14] MEDS: enoxaparin 40 mg/0.4 mL Syringe SUBCUT (00:15)
[2019-12-14] MEDS: dextrose 5%-sod chloride 0.9% 1,000 ML 100 ML IV ×3 (00:15→20:06)
[2019-12-14] MEDS: ondansetron 2 mg/ML SDV 2 mL 4 MG IVP ×2 (00:16→10:09)
[2019-12-14 04:59] LABS: Basophils % 0.4 %; Eosinophils % 0.8 %; Hematocrit 29.4 % (37.0-47.0); Hemoglobin 9.5 g/dL (11.5-15.3); Lymphocytes # 0.5 10^3/uL (0.8-4.8); Lymphocytes % 10.6 %; Mean Corpuscular HGB Conc 32.3 g/dL (30.0-36.0); Mean Corpuscular Hemoglobin 28.4 pg (28.0-34.0); Mean Platelet Volume 10.2 fL (7.4-10.4); Monocytes # 0.5 10^3/uL (0.2-0.9); Monocytes % 9.2 %; Neutrophils # 3.9 10^3/uL (1.8-7.7); Neutrophils % 78.6 %; Nucleated Red Blood Cells % 0 %; Platelet Count 120 10^3/cmm (130-400); Red Blood Count 3.34 10^6/uL (4.1-5.3); White Blood Count 4.9 10^3/uL (4.0-10.0)
[2019-12-14 05:29] LABS: Alanine Aminotransferase 55 U/L (0-33); Albumin Level 3.5 g/dL (3.5-5.2); Alkaline Phosphatase 170 IU/L (35-105); Anion Gap 20.9 (5-19); Aspartate Amino Transferase 60 U/L (0-32); Blood Urea Nitrogen 10 mg/dL (6-20); Carbon Dioxide 24 mmol/L (22-29); Chloride 92 mmol/L (98-107); Globulin 2.5 g/dL (1.3-4.6); Glomerular Filtration Rate 132.2 mL/min (90-130); Glucose 125 mg/dL (65-115); Potassium 3.9 mmol/L (3.5-5.1); Sodium 133 mmol/L (136-145); Total Bilirubin 2.6 mg/dL (0.15-1.2)
[2019-12-14 05:38] LABS: Hepatitis A Antibody IgM. Non-Reactive (Nonreactive); Hepatitis B Surface AB. 3.5 (0-8.5); Hepatitis B Surface Antigen. Non-Reactive (Nonreactive); Hepatitis C Virus Antibody Non-Reactive (Nonreactive)
[2019-12-14] MEDS: multivitamin therapeutic Tablet 1 TAB PO (08:02)
[2019-12-14] MEDS: thiamine 100 mg Tablet PO (08:02)
[2019-12-14] MEDS: folic acid 1 mg Tablet PO (08:02)
--- NOTE | 2019-12-14 11:42 | PC.CHAP ---
Pastoral Care Encounter/Spiritual Assessment Type of Contact [x] Declined correctional treatment specialist visit [] Patient/Family/Request visit [] Outpatient visit [] Follow-up visit [] Physician referral [] Code/Alert [] Routine visit [] Staff referral [] Actively dying [] Patient sleeping [] Family support [] [] Out of room [] Palliative care [] [] Receiving care in room [] Pre-surgical visit [] Trauma [] Long length of stay [] ICU visit [] Other: Relational/Emotional Strength [] Patient feels connected with others/family/visitors/staff [] Distress [] Loneliness/isolation [] Abandonment Spirituality of Patient [] Person of Esthela [] Attends Hoahaoism of their Esthela [] Believes in Prayer [] Reads Bible or Yazidi materials [] There are 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 [] Prayer [] Active listening [] Non-anxious presence [] Spiritual/emotional support [] Crisis/trauma care [] Spiritual counseling [] Bereavement support [] Provided bereavement packet [] Provided Bible/devotional materials [] Provided toy/stuffed animal, coloring book to patient or family member [] Provided Communion [] Anointing/Elbert [] Salvation [] Completed spiritual assessment [] Other: Impact on Illness or Injury [] Angry [] Fearful [] Anxious [] Often cries [] Exhaustion [] Unable to work [] Unable to attend baptism [] Unable to walk/stand [] Unable to read [] Unable to drive [] Unable to eat/drink [] Unable to sleep [] Unable to be with family [] Patient intubated [] Other: Summary No visitors allowed. Time spent with patient
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
[2019-12-14] MEDS: promethazine 25 mg Tablet 12.5 MG PO (17:11)
--- NOTE | 2019-12-14 17:49 | P.PN_ITS ---
Subjective Subjective: Interval history: This morning she is experiencing hallucinations, hearing voices of conversations playing out in her head, as well as seeing things moving around in her room which should not be there. She is otherwise not in pain or discomfort. Vitals/I&O/Wt Last Vital Signs Temp 98.2 F 12/14/19 16:00 Pulse 68 12/14/19 16:00 Resp 18 12/14/19 16:00 BP 124/86 12/14/19 14:00 Pulse Ox 95 12/14/19 16:00 12/14/19 12/14/19 12/14/19 06:59 14:59 22:59 Intake Total 517.327 / 899.144 3057.402 / 1454.402 127.865 / 1582.267 Output Total 300 / 300 Balance 517.327 / 823.675 1154.402 / 1154.402 127.865 / 1282.267 Weight last 48 hrs Weight 117.934 kg Physical Exam Const: COMMON NORMALS: no apparent distress and oriented x3 HENMT: COMMON NORMALS: oropharynx normal Neck/C-Spine: COMMON NORMALS: no JVD Resp: COMMON NORMALS: normal respiratory effort and clear to auscultation bilaterally AUSCULTATION: clear to auscultation bilaterally Cardio: COMMON NORMALS: no JVD, regular rhythm, S1 normal heart sound, S2 normal heart sound and no murmurs RHYTHM: regular rhythm HEART SOUNDS: S1 normal and S2 normal GI: COMMON NORMALS: normal to inspection, nondistended, normoactive bowel sounds and soft to palpation PALPATION: Yes soft and Yes tender (Mild abdominal tenderness on palpation) Extremity: COMMON NORMALS: no joint enlargement and no pedal edema Neuro: COMMON NORMALS: oriented x3 and moves all extremities Skin: COMMON NORMALS: no rashes or lesions noted GENERAL SKIN EXAM: no rashes or lesions noted Data : 12/14/19 04:19 12/14/19 04:19 A&P Assessment and plan (1) Alcohol withdrawal: With delirium tremens. Hallucinations, tachycardia. She was otherwise calm, cooperative while on Precedex drip. Attempted to wean down, she became anxious. Attempt was made to restart Precedex, however, then developed pauses on telemetry. This had to be discontinued. Continue withdrawal care per [facility] protocol. Monitor on telemetry. Transfer to neuropsychiatric unit when she is a little bit more stable. Status: Acute Code(s): F10.239 - Alcohol dependence with withdrawal, unspecified (2) Alcohol use disorder, severe, dependence: Continue vitamins. Encourage cessation. Status: Acute Code(s): F10.20 - Alcohol dependence, uncomplicated (3) Alcohol intoxication: Status: Acute Code(s): F10.929 - Alcohol use, unspecified with intoxication, unspecified (4) Dehydration: Status: Acute Code(s): E86.0 - Dehydration Additional A&P Information Mild abdominal tenderness on palpation: Reports history of pancreatitis, however, lipase is low. Transaminitis: She is status post cholecystectomy. Mildly dilated common bile duct and intrahepatic ducts. Fatty liver infiltration. Improving. Monitor. Concern for possible fibrosis or early cirrhosis. May need additional assessment when she is closer to baseline. Anemia: Hemoglobin down to 9.5. Likely secondary to IV hydration with decrease in all cell lines. Suicidal ideation: Pending additional assessment on your psychiatric unit. Continue one-to-one sitter. Attestations Medical Necessity Statement*: Continue admission first management and severe alcohol withdrawal, pending assessment on your psychiatric unit. Coding Level of Care Code Acute Django Developer for Hannah Fulton Diagnoses Alcohol withdrawal F10.239 Alcohol use disorder, severe, dependence F10.20 Alcohol intoxication F10.929 Dehydration E86.0
--- NOTE | 2019-12-14 18:09 | PC.NURSE ---
Precedex stopped. Patient began getting sick to stomach, felt like she was going to puke. She then began having pauses on the heart monitor. Heart rate dropped to 30. Patient assessed precedex stopped. Dr. Hoffman notified and ordered to continue CIWA protocol with Ativan if needed and stop Precedex. Phenergan given.
[2019-12-14] MEDS: LORazepam 2 mg/mL INJ 1 mL IVP (20:05)
[2019-12-15] VITALS (7 sets, daily range): BP systolic 123–156; BP diastolic 68–110; PULSE 90–103; RESP 16–23; TEMP 36.9–37.3; O2SAT 94–95
[2019-12-15] MEDS: enoxaparin 40 mg/0.4 mL Syringe SUBCUT (01:07)
[2019-12-15] MEDS: LORazepam 2 mg/mL INJ 1 mL IVP ×2 (01:07→04:29)
[2019-12-15] MEDS: dextrose 5%-sod chloride 0.9% 1,000 ML 100 ML IV (04:29)
[2019-12-15 05:11] LABS: Basophils % 0.3 %; Eosinophils # 0.1 10^3/uL (0.0-0.8); Eosinophils % 1.4 %; Hematocrit 30.8 % (37.0-47.0); Hemoglobin 9.7 g/dL (11.5-15.3); Lymphocytes # 0.7 10^3/uL (0.8-4.8); Lymphocytes % 20.6 %; Mean Corpuscular HGB Conc 31.5 g/dL (30.0-36.0); Mean Corpuscular Hemoglobin 27.5 pg (28.0-34.0); Mean Corpuscular Volume 87.3 fL (81-99); Mean Platelet Volume 10.7 fL (7.4-10.4); Monocytes # 0.3 10^3/uL (0.2-0.9); Monocytes % 9.1 %; Neutrophils # 2.4 10^3/uL (1.8-7.7); Neutrophils % 68.3 %; Nucleated Red Blood Cells % 0 %; Platelet Count 81 10^3/cmm (130-400); Red Blood Count 3.53 10^6/uL (4.1-5.3); Red Cell Distribution Width 17.8 % (12.1-15.1); White Blood Count 3.5 10^3/uL (4.0-10.0)
[2019-12-15 05:22] LABS: Alanine Aminotransferase 44 U/L (0-33); Albumin Level 2.9 g/dL (3.5-5.2); Alkaline Phosphatase 139 IU/L (35-105); Anion Gap 14.7 (5-19); Aspartate Amino Transferase 53 U/L (0-32); Blood Urea Nitrogen 7 mg/dL (6-20); Calcium 8.7 mg/dL (8.5-10.5); Carbon Dioxide 27 mmol/L (22-29); Chloride 95 mmol/L (98-107); Glomerular Filtration Rate 132.2 mL/min (90-130); Glucose 124 mg/dL (65-115); Potassium 3.7 mmol/L (3.5-5.1); Sodium 133 mmol/L (136-145); Total Bilirubin 2.3 mg/dL (0.15-1.2); Total Protein 5.9 g/dL (6.6-8.7)
[2019-12-15] MEDS: folic acid 1 mg Tablet PO (09:16)
[2019-12-15] MEDS: thiamine 100 mg Tablet PO (09:16)
[2019-12-15] MEDS: LORazepam 2 mg Tablet PO ×2 (09:17→14:19)
[2019-12-15] MEDS: multivitamin therapeutic Tablet 1 TAB PO (09:17)
--- NOTE | 2019-12-15 09:17 | PC.NURSE ---
PRN ATIVAN ATIVAN 2MG PO PER CIWA SCORE OF 10 PER PROTOCOL. WILL CONTINUE TO MONITOR FOR MEDICATION EFFECTIVENESS.
--- NOTE | 2019-12-15 09:49 | PM.NPN ---
Subjective NPU Subjective: Interval history: The patient feels calmer today. She acknowledges that her sobriety is fragile and does not endure severe psychosocial hits such as the of her mother. Many an alcoholic has relapsed when such a tragedy strikes. She is now planning to reconnect with her recovery group at [facility]. She and her planner scheduler are formulating a safe exit plan. Medications: Reviewed: Yes Medication Review Details: Patient is basically on vitamin replacement. Mental Status Exam MSE Comments: This is a 49-year-old female who presents at her stated age. Mood is moderately dysphoric and affect is flat. She is found lying in her bed. She says she had not slept in a couple days and needs to get some sleep. She is presently in a conversation with a planner scheduler about return to outpatient treatment and her recovery group, with which she has been compliant. She plans to get a new sponsor. Insight and judgment are therefore intact. Thought processes are integrated and free of racing, blocking and looseness of association. Speech is of normal rate and volume, without dysarthria, aprosody or pressure. There is no evidence of psychosis, such as but not limited to hallucinations delusions or ideas of reference. Cognitive functions including orientation, reason, insight and judgment appear to have been preserved. The patient denies suicidal or homicidal ideation, plan or intent. Vitals/I&O/Wt Last Vital Signs Temp 98.5 F 12/15/19 00:00 Pulse 95 12/15/19 06:00 Resp 17 12/15/19 06:00 BP 134/98 12/15/19 06:00 Pulse Ox 94 12/15/19 06:00 12/14/19 12/15/19 12/15/19 23:59 07:59 15:59 Intake Total 1370.735 838.333 240 Output Total 600 1800 600 Balance 770.735 -961.667 -360 Weight last 48 hrs Weight 260 lb Data NPU : 12/15/19 03:43 12/15/19 03:43 A&P Assessment and plan (1) Iron deficiency anemia: Iron supplement. Status: Acute Qualifiers: Iron deficiency anemia type: other iron deficiency Qualified Code(s): D50.8 - Other iron deficiency anemias Code(s): D50.9 - Iron deficiency anemia, unspecified Involuntary Hold Information 96 Hour Hold: 96 Hour Involuntary Admission: Yes 96 Hour Hold Ending Date: 12/19/19 96 Hour Hold Ending Time: 21:28 Attestations NPU Medical Necessity Statement*: The patient is still sickly and in the final stages of withdrawal from alcohol. I anticipate 4-6 midnights additional hospitalization. Time Spent in Patient Care: Greater than 35 minutes (>than 50% of time spent in counselling and/or direct pt care on unit). Coding Level of Care Code Acute Medical Billing Representative for Hannah Fulton Diagnoses Iron deficiency anemia D50.8 Iron deficiency anemia type: other iron deficiency
--- NOTE | 2019-12-15 09:58 | PC.NURSE ---
0837 Transfered patient to NPU with computer systems security analyst via wheelchair and all belongings taken. Only c/o is of sore right ankle when standing, thinks she spained it when fell at home.
--- NOTE | 2019-12-15 10:09 | ECG_ITS ---
Measurements Intervals Jet Rate: 88 P: 43 ND: 164 QRS: 62 QRSD: 88 T: 53 QT: 366 QTc: 445 SINUS RHYTHM WARNING: DATA QUALITY MAY AFFECT INTERPRETATION Compared to ECG 10/31/2019 17:26:55 Sinus tachycardia no longer present Electronically Signed On 12-15-2019 15:29:05 GRAIN OILSEED OR PASTURE FARM MANAGER by Erica Raines M.D. [email or web address]
--- NOTE | 2019-12-15 10:20 | PC.NURSE ---
PRN ATIVAN FOLLOW UP MEDICATION EFFECTIVE. PATIENT LYING IN BED RESTIONG RESPIRATIONS EVEN AND UNLABORED.
--- NOTE | 2019-12-15 11:30 | PM.PN ---
Subjective Subjective: Interval history: Yeimy reported she was not nauseated this morning. She had a slight headache. Denies confusion. Able to ambulate. Medications: Reviewed: Yes Vitals/I&O/Wt Last Vital Signs Temp 98.5 F 12/15/19 00:00 Pulse 95 12/15/19 06:00 Resp 17 12/15/19 06:00 BP 134/98 12/15/19 06:00 Pulse Ox 94 12/15/19 06:00 12/14/19 12/15/19 12/15/19 22:59 06:59 14:59 Intake Total 1376.885 / 2831.287 838.333 / 3669.620 240 / 240 Output Total 600 / 900 1800 / 2700 600 / 600 Balance 776.885 / 1931.287 -961.667 / 969.620 -360 / -360 Weight last 48 hrs Weight 117.934 kg Physical Exam Narrative: EXAM NARRATIVE: General exam no apparent distress Cardiovascular regular in rhythm without murmur Lungs clear Abdomen is soft, positive bowel sounds Extremities no cyanosis clubbing or edema Data : 12/15/19 03:43 12/15/19 03:43 A&P Assessment and plan (1) Alcohol withdrawal: With DTs. This appears to have resolved. Hallucinations, tachycardia have passed. Currently on no medicines other than some Ativan as needed. Previously required Precedex She is ready for transfer to the neuropsychiatric unit Status: Acute Code(s): F10.239 - Alcohol dependence with withdrawal, unspecified (2) Alcohol use disorder, severe, dependence: Continue thiamine, multivitamin. Psychiatric evaluation Status: Acute Code(s): F10.20 - Alcohol dependence, uncomplicated (3) Alcohol intoxication: Resolved Status: Inactive Code(s): F10.929 - Alcohol use, unspecified with intoxication, unspecified (4) Dehydration: Resolved Status: Inactive Code(s): E86.0 - Dehydration Additional A&P Information Transaminitis, secondary to alcohol. Resolving. Hepatitis panel negative. Abdominal tenderness, resolved. Lipase normal. Anemia, thrombocytopenia, leukopenia. Consistent with alcohol effect on bone marrow Suicidal ideation, evaluation by psychiatry occurring Attestations Medical Necessity Statement*: Needs continued hospitalization, for evaluation of suicidal ideation in the neuropsychiatric unit. Coding Level of Care Code Acute Rollway Worker for g Fwd Diagnoses Alcohol withdrawal F10.239 Alcohol use disorder, severe, dependence F10.20 Alcohol intoxication F10.929 Dehydration E86.0
--- NOTE | 2019-12-15 14:19 | PC.NURSE ---
PRN ATIVAN ATIVAN 2MG PO PER CIWA SCORE OF 12 PER PROTOCOL. WILL CONTINUE TO MONITOR FOR MEDICATION EFFECTIVENESS.
--- NOTE | 2019-12-15 15:20 | PC.NURSE ---
PRN ATIVAN FOLLOW UP MEDICATION EFFECTIVE. CIWA SCORE OF 0. PATIENT IS LYING IN BED RESTING, RESPIRATIONS EVEN AND UNLABORED.
[2019-12-15] MEDS: trazodone 50 mg Tablet PO (23:27)
[2019-12-16 06:00] VITALS: BP 146/105; PULSE 79; RESP 20; TEMP 36.9; O2SAT 97
[2019-12-16] MEDS: thiamine 100 mg Tablet PO (08:50)
[2019-12-16] MEDS: multivitamin therapeutic Tablet 1 TAB PO (08:50)
[2019-12-16] MEDS: folic acid 1 mg Tablet PO (08:50)
--- NOTE | 2019-12-16 13:26 | P.PN_ITS ---
Subjective NPU Subjective: Interval history: The patient is distraught today. She is physically improved but her fianc? suddenly at the factory where he works. She says she wants to see his body, which I believe would be extremely risky, given her near-fatal drinking response to tragedy. She says her fianc?s and her mother have spoken to her and they want her to know that they are okay. Medications: Reviewed: Yes Medication Review Details: Current Medications Al Hydrox/Mg Hydrox/Simethicone (Maalox) 15 ml PO Q6H PRN PRN Reason: INDIGESTION Benztropine Mesylate (Cogentin) 1 mg PO BID PRN PRN Reason: Mild Extrapyramidal symptoms Camphor/Menthol/Phenol (Blistex) 1 applic TOPICAL Q1H PRN PRN Reason: DRYNESS Diphenhydramine HCl (Benadryl) 50 mg IM Q4H PRN PRN Reason: Severe Aggression Folic Acid (Folic Acid) 1 mg PO DAILY [facility] Last Admin: 12/16/19 08:50 Dose: 1 mg Documented by: Haloperidol (Haldol) 5 mg PO Q4H PRN PRN Reason: AGITATION Haloperidol Lactate (Haldol Inj) 5 mg IM Q4H PRN PRN Reason: Severe Aggression Hydroxyzine Pamoate (Vistaril) 50 mg PO Q6H PRN PRN Reason: ANXIETY Loperamide HCl (Imodium Capsule) 2 mg PO Q6H PRN PRN Reason: DIARRHEA Lorazepam (Ativan) 2 mg PO Q4H PRN; Protocol PRN Reason: WITHDRAWAL Last Admin: 12/15/19 14:19 Dose: 2 mg Documented by: Lorazepam (Ativan) 2 mg IM Q4H PRN PRN Reason: Severe Aggression Multivitamins Therapeutic (Multivitamin Tab) 1 tab PO DAILY [facility] Last Admin: 12/16/19 08:50 Dose: 1 tab Documented by: Nicotine (Nicoderm 21 Mg Patch) 1 patch TRANSDERMA DAILY PRN PRN Reason: NICOTINE WITHDRAWAL Nicotine Polacrilex (Nicorette) 2 mg BUCCAL Q2H PRN PRN Reason: NICOTINE WITHDRAWAL Olanzapine (Zyprexa Zydis) 5 mg PO Q4H PRN PRN Reason: Agitation/Psychosis Ondansetron HCl (Zofran) 4 mg PO Q6H PRN PRN Reason: NAUSEA AND VOMITING Promethazine HCl (Phenergan) 12.5 mg PO Q6H PRN PRN Reason: NAUSEA Last Admin: 12/14/19 17:11 Dose: 12.5 mg Documented by: Thiamine Mononitrate (Vitamin B-1) 100 mg PO DAILY ALEX Last Admin: 12/16/19 08:50 Dose: 100 mg Documented by: Trazodone HCl (Desyrel) 50 mg PO BEDTIME PRN PRN Reason: SLEEP Last Admin: 12/15/19 23:27 Dose: 50 mg Documented by: Mental Status Exam MSE Comments: This is a 49-year-old female who presents at her stated age. Hygiene and grooming are good. Mood is dysphoric and aggrieved. Affect is tearful. Thought processes are integrated and free of any racing, blocking or looseness of association. There is no evidence of psychosis, such as but not limited to hallucinations, delusions and ideas of reference. Speech is of normal rate and volume, without aprosody, dysarthria or pressure. Cognit loree functions appear to be intact with the exception of insight and judgment. She remains impulsive but denies suicidal or homicidal ideation, plan or intent. Vitals/I&O/Wt Last Vital Signs Temp 98.4 F 12/16/19 06:00 Pulse 79 12/16/19 06:00 Resp 20 H 12/16/19 06:00 BP 146/105 12/16/19 06:00 Pulse Ox 97 12/16/19 06:00 Data NPU : 12/15/19 03:43 12/15/19 03:43 Involuntary Hold Information 96 Hour Hold: 96 Hour Involuntary Admission: Yes 96 Hour Hold Ending Date: 12/19/19 96 Hour Hold Ending Time: 21:28 Attestations NPU Medical Necessity Statement*: I anticipate 3 to 4 midnights additional hospitalization Time Spent in Patient Care: Greater than 35 minutes (>than 50% of time spent in counselling and/or direct pt care on unit) . Coding Level of Care Code Acute Java Spring Developer for Hannah Fulton
[2019-12-16 14:00] VITALS: BP 154/95; PULSE 79; RESP 16; TEMP 37.4; O2SAT 97
[2019-12-16] MEDS: OLANZapine ODT 5 MG TABLET PO ×2 (16:38→20:53)
--- NOTE | 2019-12-16 16:38 | PC.NURSE ---
Addendum entered by Alicja Arzola LPN 12/16/19 17:43: prn med effective no further c/o psychosis/paranoia currently Original Note: PRN ZYPREXA ZYDIS 5 MG GIVEN PO PER PT C/O PSYCHOSIS. PARANOID, UP AT NURSES STATION REQUESTING TO HAVE STAFF CALL POLICE DEPT IN [place] TO CHECK ON MISSING PEOPLE. PT BELIEVED THAT HER BOYFRIEND WAS IN THE HOSPITAL, HAD STAFF CHECK WITH THE ER TO VERIFY THAT HER BOYFRIEND WAS NOT THERE. PT EDUCATED THAT HER BOYFRIEND WAS NOT IN THE ER, THAT THERE WAS NOT ANY DATA TO SUPPORT THAT HER BOYFRIEND WAS EVEN IN THE HOSPITAL RECENTLY. WILL CONT TO MONITOR.
[2019-12-16] MEDS: haloperidol 5 mg Tablet PO (17:54)
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
[2019-12-16 20:00] VITALS: BP 134/79; PULSE 70; RESP 15; TEMP 37.1; O2SAT 98
[2019-12-16] MEDS: trazodone 50 mg Tablet PO (20:52)
[2019-12-16] MEDS: LORazepam 2 mg Tablet PO (20:53)
[2019-12-17] MEDS: LORazepam 2 mg Tablet PO ×4 (01:20→23:57)
[2019-12-17] MEDS: haloperidol 5 mg Tablet PO ×2 (01:20→14:36)
[2019-12-17 06:00] VITALS: BP 138/93; PULSE 88; RESP 18; TEMP 36.6; O2SAT 98
[2019-12-17] MEDS: thiamine 100 mg Tablet PO (08:17)
[2019-12-17] MEDS: multivitamin therapeutic Tablet 1 TAB PO (08:17)
[2019-12-17] MEDS: folic acid 1 mg Tablet PO (08:17)
[2019-12-17] MEDS: OLANZapine ODT 5 MG TABLET PO (10:05)
[2019-12-17] MEDS: hyDROXYzine 25 mg Capsule 50 MG PO ×2 (10:05→20:59)
--- NOTE | 2019-12-17 10:06 | PC.NURSE ---
PRN VISTARIL & ZYPREXA ZYDIS VISTARIL 50 MG GIVEN PO PER PT C/O ANXIETY. ZYPREXA ZYDIS 5 MG GIVEN PO PER PT C/O PSYCHOSIS. PT TALKING TO HERSELF IN HER ROOM, YELLED OUT OPEN THAT DOOR FOR ME! PT THEN WALKING DOWN THE HALLWAY, STOPPED AT A CLOSED DOOR AND SAID STOP TALKING ABOUT ME IN THERE, YOU HEAR ME! PARANOID AT THIS TIME. WILL CONT TO MONITOR.
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
[2019-12-17 14:00] VITALS: BP 160/108; PULSE 114; RESP 20; TEMP 36.4; O2SAT 97
[2019-12-17 14:36] VITALS: BP 160/108
[2019-12-17] MEDS: cloNIDine 0.1 mg Tablet PO (14:36)
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
[2019-12-17 15:38] VITALS: BP 154/98; PULSE 104
[2019-12-17] MEDS: ziprasidone hcl 20 mg Capsule PO (17:04)
--- NOTE | 2019-12-17 17:46 | PC.NURSE ---
Addendum entered by Alicja Arzola LPN 12/17/19 18:18: CIWA SCORE NOW A 4, PT STILL MILDLY ANXIOUS, ASKING STAFF TO LET HER OUT THE DOORS. REDIRECTED OFTEN Original Note: CIWA SCORE 13 ATIVAN 2 MG GIVEN PO PER PROTOCOL. PT AGITATED/ANXIOUS. DEMANDING STAFF TO GIVE HER HER SHOES AND CELL PHONE SINCE SHE HAS BEEN DISCHARGED. STAFF ATTEMPTS TO REDIRECT PT WITH FAILED ATTEMPTS. PT HAS PRESSURED SPEECH. WAVING AT PEOPLE THAT AREN'T THERE. WILL CONT TO MONITOR.
[2019-12-17 21:17] VITALS: BP 138/93; PULSE 107; RESP 18; TEMP 36.8; O2SAT 99
--- NOTE | 2019-12-17 21:21 | PC.NURSE ---
PRN VISTARIL VISTARIL 50 MG GIVEN PO PER PT C/O ANXIETY. PT TALKING TO HERSELF IN HER ROOM AND STATES SHE IS SEEING [employer] IN THE CORNER. WILL MONITOR FOR MEDICATION EFFECTIVENESS.
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
[2019-12-18] MEDS: haloperidol 5 mg Tablet PO ×2 (00:06→15:20)
--- NOTE | 2019-12-18 00:06 | PC.NURSE ---
PRN HALDOL PT GIVEN HALDOL 5MG PO FOR INCREASING AGITATION AND HALLUCINATIONS. PT REQUESTING TO LEAVE HITTING THE DOORS AND TRYING TO GET IN THE NURSES STATION. WILL MONITOR FOR MEDICATION EFFECTIVENESS.
[2019-12-18] MEDS: LORazepam 2 mg Tablet PO ×2 (04:37→15:20)
--- NOTE | 2019-12-18 04:39 | PC.NURSE ---
PRN ATIVAN PT GIVEN ATIVAN 2 MG PO FOR CIWA SCORE 13. PT CONTINUES TO TRY TO GET INTO THE NURSES STATION AND BECOMES AGITATED WHEN ATTEMPTS ARE UNSUCCESSFUL. CONTINUES TO BECOME MORE AGITATED BECAUSE SHE WANTS TO LEAVE. WILL CONTINUE TO MONITOR.
[2019-12-18 06:00] VITALS: BP 141/96; PULSE 114; RESP 18; TEMP 36.8; O2SAT 98
[2019-12-18] MEDS: ziprasidone hcl 20 mg Capsule PO ×2 (08:08→17:29)
[2019-12-18] MEDS: multivitamin therapeutic Tablet 1 TAB PO (08:08)
[2019-12-18] MEDS: thiamine 100 mg Tablet PO (08:09)
[2019-12-18] MEDS: folic acid 1 mg Tablet PO (08:09)
--- NOTE | 2019-12-18 10:25 | PC.NURSE ---
patient behavior patient down at the double doors while senior staff consultant is waiting to get out. patient is trying to go through housekeeping cart saying he has her baby doll. staff redirected patient away from the double doors. Dr. Kwong notified.
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
[2019-12-18 13:32] VITALS: BP 118/79; PULSE 115; RESP 18; TEMP 36.4; O2SAT 98
--- NOTE | 2019-12-18 15:33 | PC.NURSE ---
PRN ATIVAN AND PRN HALDOL ATIVAN 2MG PO GIVEN PER CIWA PROTOCOL. CIWA SCORE OF 17. HALDOL 5MG PO FOR AGITATION. PATIENT IS HAVING VISUAL AND AUDITORY HALLUCINATION. PATIENT THINKS SHE IS SOMEWHERE OTHER THAN THE HOSPITAL AND THAT HER GREAT GRANDPA IS HERE. STAFF HAS TRIED TO REDIRECT PATIENT AND TELL HER THAT SHE IS AT THE HOSPITAL AND THAT HER GREAT GRANDPA ISNT HERE. PATIENT IS AGITATED BECAUSE SHE THINKS WE ARE TRYING TO KEEP HIM FROM HER. WILL CONTINUE TO MONITOR FOR MEDICATION EFFECTIVENESS.
--- NOTE | 2019-12-18 16:40 | PC.NURSE ---
PRN ATIVAN AND HALDOL FOLLOW UP PATIENT IS NOW AT A CIWA SCORE OF 5. PATIENT IS LESS ANXIOUS AND AGITATED.
[2019-12-18 21:57] VITALS: BP 138/92; PULSE 100; RESP 18; TEMP 36.7; O2SAT 97
--- NOTE | 2019-12-19 05:48 | PC.NURSE ---
Patient Behavior Patient showed signs of confusion through out the night including: Cleaning the day room windows for at least an hour, taking off clothes and coming to nurses desk, being naked in her room and going into another patients room. She would state the movie is not over, lets go eat breakfast, I need my broom . Patient was calm but had to be redirected multiple times and she may have slept 10 minutes.
[2019-12-19 06:00] VITALS: BP 141/90; PULSE 126; RESP 19; TEMP 36.8; O2SAT 96
[2019-12-19] MEDS: folic acid 1 mg Tablet PO (09:00)
[2019-12-19] MEDS: ziprasidone hcl 20 mg Capsule PO ×2 (09:00→18:05)
[2019-12-19] MEDS: multivitamin therapeutic Tablet 1 TAB PO (09:00)
[2019-12-19] MEDS: thiamine 100 mg Tablet PO (09:00)
--- NOTE | 2019-12-19 13:22 | PM.NPN ---
Subjective NPU Subjective: Interval history: Yeimy presents today demonstrating greater orientation but continued perceptual disturbances. When I entered her room she was carrying on a full conversation with an imaginary person. Even after I entered the room she was confused as to why I could not see the individual to whom she was speaking. She did not relate to me that she had regular visual hallucinations him in the hospital and described those in detail. We discussed the filing of the 21-day hold and she agreed she should probably just stay and try to get better. Mental Status Exam MSE Comments: This is an obese white female with adequate dress, grooming and eye contact. No abnormal movements except for mild psychomotor retardation. Cooperative with exam and in no acute distress. Speech was of slightly decreased rate and volume. Mood described as better, Affect is flat. Thought process linear. Patient denied any suicidal or homicidal ideation today. There are no delusions reported, she denied perceptual disturbances but auditory and visual hallucinations were apparent. Attention and concentration were intact and memory appeared unreliable but none were formally tested. She is alert and oriented x 3. Insight and judgment impaired but improving. Vitals/I&O/Wt Last Vital Signs Temp 98.2 F 12/19/19 06:00 Pulse 126 H 12/19/19 06:00 Resp 19 H 12/19/19 06:00 BP 141/90 12/19/19 06:00 Pulse Ox 96 12/19/19 06:00 Active Medications Al Hydrox/Mg Hydrox/Simethicone (Maalox) 15 ml PO Q6H PRN PRN Reason: INDIGESTION Benztropine Mesylate (Cogentin) 1 mg PO BID PRN PRN Reason: Mild Extrapyramidal symptoms Camphor/Menthol/Phenol (Blistex) 1 applic TOPICAL Q1H PRN PRN Reason: DRYNESS Diphenhydramine HCl (Benadryl) 50 mg IM Q4H PRN PRN Reason: Severe Aggression Folic Acid (Folic Acid) 1 mg PO DAILY [facility] Last Admin: 12/19/19 09:00 Dose: 1 mg Documented by: Haloperidol (Haldol) 5 mg PO Q4H PRN PRN Reason: AGITATION Last Admin: 12/18/19 15:20 Dose: 5 mg Documented by: Haloperidol Lactate (Haldol Inj) 5 mg IM Q4H PRN PRN Reason: Severe Aggression Hydroxyzine Pamoate (Vistaril) 50 mg PO Q6H PRN PRN Reason: ANXIETY Last Admin: 12/17/19 20:59 Dose: 50 mg Documented by: Loperamide HCl (Imodium Capsule) 2 mg PO Q6H PRN PRN Reason: DIARRHEA Lorazepam (Ativan) 2 mg PO Q4H PRN; Protocol PRN Reason: WITHDRAWAL Last Admin: 12/18/19 15:20 Dose: 2 mg Documented by: Lorazepam (Ativan) 2 mg IM Q4H PRN PRN Reason: Severe Aggression Multivitamins Therapeutic (Multivitamin Tab) 1 tab PO DAILY [facility] Last Admin: 12/19/19 09:00 Dose: 1 tab Documented by: Nicotine (Nicoderm 21 Mg Patch) 1 patch TRANSDERMA DAILY PRN PRN Reason: NICOTINE WITHDRAWAL Nicotine Polacrilex (Nicorette) 2 mg BUCCAL Q2H PRN PRN Reason: NICOTINE WITHDRAWAL Ondansetron HCl (Zofran) 4 mg PO Q6H PRN PRN Reason: NAUSEA AND VOMITING Promethazine HCl (Phenergan) 12.5 mg PO Q6H PRN PRN Reason: NAUSEA Last Admin: 12/14/19 17:11 Dose: 12.5 mg Documented by: Thiamine Mononitrate (Vitamin B-1) 100 mg PO DAILY [facility] Last Admin: 12/19/19 09:00 Dose: 100 mg Documented by: Ziprasidone (Geodon) 20 mg PO BID [facility] Last Admin: 12/19/19 09:00 Dose: 20 mg Documented by: Data NPU : 12/15/19 03:43 12/15/19 03:43 A&P Additional A&P Information This is a 49-year-old white female with recent episode of drinking and a long history of mental health complaints with recent issues of bereavement who presents with confusion consistent with thiamine deficiency, with lack of clarity as to whether she will have resolution versus this is her baseline. 1. Continue current medication. 2. Continue thiamine and be vigilant to her clearing in her overall orientation. 3. Encourage individual, group and milieu therapy. 4. Continue every 15 minute checks for safety. 5. Monitor for resolution of the confusion and consider the highest level of sober living treatment to which she is willing to commit. 6. If she does not clear from a cognitive since, may need to consider some level of placement or longterm. Involuntary Hold Information 96 Hour Hold: 96 Hour Involuntary Admission: Yes 96 Hour Hold Ending Date: 12/19/19 96 Hour Hold Ending Time: 21:28 Attestations NPU Medical Necessity Statement*: Inpatient hospitalization is medically necessary and the clinically appropriate intervention at this time. We will continue to monitor medications and titrate to effect. Filed 21 day hold application given her current continued delirium and inability to make informed consent and her functional impairment which could lead to significant danger if released. Likely length of stay 5-7 days. Coding Level of Care Code Acute Director Of Planning for Hannah Fulton
[2019-12-19 14:00] VITALS: BP 118/76; PULSE 76; RESP 18; TEMP 36.7; O2SAT 97
--- NOTE | 2019-12-19 15:54 | PC.SOCIAL ---
21 day hold hearing scheduled for 12/22/2019 at 3:00pm
[2019-12-19 21:37] VITALS: BP 147/92; PULSE 83; RESP 20; TEMP 36.8; O2SAT 99
[2019-12-20 06:00] VITALS: BP 121/76; PULSE 73; RESP 17; TEMP 36.7; O2SAT 99
[2019-12-20] MEDS: multivitamin therapeutic Tablet 1 TAB PO (08:19)
[2019-12-20] MEDS: folic acid 1 mg Tablet PO (08:19)
[2019-12-20] MEDS: thiamine 100 mg Tablet PO (08:19)
[2019-12-20] MEDS: ziprasidone hcl 20 mg Capsule PO ×2 (08:19→17:42)
--- NOTE | 2019-12-20 13:30 | P.PN_ITS ---
Subjective NPU Subjective: Interval history: Yeimy presents today reporting that her memory is getting better and better. She is actually aware of the hallucinations she was having yesterday and can speak to them specifically. We discussed how scary it was for her to have to be dealing with those thoughts. She has been doing a lot of thinking today about what she is going to make sure is not drinking again but we discussed the fact that she seems to have a underestimation of how significant her addiction issues. We discussed vivitrol which was ineffective and discussed the possibility of doing Antabuse. She reported she is to think on that as we discussed the risks, benefits and alternatives of moving forward with that as a treatment for her alcohol use disorder given the ongoing risk of Wernicke-Korsakoff syndrome with his recent reaction. Mental Status Exam MSE Comments: This is an obese white female with adequate dress, grooming and eye contact. No abnormal movements except for mild psychomotor retardation. Cooperative with exam and in no acute distress. Speech was of slightly decreased rate and volume. Mood described as better, Affect is slightly subdued but reactive. Thought process organized. Patient denied any suicidal or homicidal ideation today, there were no delusions reported are noted, she denied any auditory or visual hallucinations. Attention and concentration were intact and memory appeared more reliable but none were formally tested. She is alert and oriented x 3. Insight and judgment are improving. Vitals/I&O/Wt Last Vital Signs Temp 98.1 F 12/20/19 06:00 Pulse 73 12/20/19 06:00 Resp 17 12/20/19 06:00 BP 121/76 12/20/19 06:00 Pulse Ox 99 12/20/19 06:00 Home Medications ferrous sulfate 325 mg (65 mg iron) tablet 325 mg PO BID #60 tab 11/11/19 [Rx Confirmed 12/13/19] Active Medications Al Hydrox/Mg Hydrox/Simethicone (Maalox) 15 ml PO Q6H PRN PRN Reason: INDIGESTION Benztropine Mesylate (Cogentin) 1 mg PO BID PRN PRN Reason: Mild Extrapyramidal symptoms Camphor/Menthol/Phenol (Blistex) 1 applic TOPICAL Q1H PRN PRN Reason: DRYNESS Diphenhydramine HCl (Benadryl) 50 mg IM Q4H PRN PRN Reason: Severe Aggression Folic Acid (Folic Acid) 1 mg PO DAILY [facility] Last Admin: 12/20/19 08:19 Dose: 1 mg Documented by: Haloperidol (Haldol) 5 mg PO Q4H PRN PRN Reason: AGITATION Last Admin: 12/18/19 15:20 Dose: 5 mg Documented by: Haloperidol Lactate (Haldol Inj) 5 mg IM Q4H PRN PRN Reason: Severe Aggression Hydroxyzine Pamoate (Vistaril) 50 mg PO Q6H PRN PRN Reason: ANXIETY Last Admin: 12/17/19 20:59 Dose: 50 mg Documented by: Loperamide HCl (Imodium Capsule) 2 mg PO Q6H PRN PRN Reason: DIARRHEA Lorazepam (Ativan) 2 mg PO Q4H PRN; Protocol PRN Reason: WITHDRAWAL Last Admin: 12/18/19 15:20 Dose: 2 mg Documented by: Lorazepam (Ativan) 2 mg IM Q4H PRN PRN Reason: Severe Aggression Multivitamins Therapeutic (Multivitamin Tab) 1 tab PO DAILY [facility] Last Admin: 12/20/19 08:19 Dose: 1 tab Documented by: Nicotine (Nicoderm 21 Mg Patch) 1 patch TRANSDERMA DAILY PRN PRN Reason: NICOTINE WITHDRAWAL Nicotine Polacrilex (Nicorette) 2 mg BUCCAL Q2H PRN PRN Reason: NICOTINE WITHDRAWAL Ondansetron HCl (Zofran) 4 mg PO Q6H PRN PRN Reason: NAUSEA AND VOMITING Promethazine HCl (Phenergan) 12.5 mg PO Q6H PRN PRN Reason: NAUSEA Last Admin: 12/14/19 17:11 Dose: 12.5 mg Documented by: Thiamine Mononitrate (Vitamin B-1) 100 mg PO DAILY [facility] Last Admin: 12/20/19 08:19 Dose: 100 mg Documented by: Ziprasidone (Geodon) 20 mg PO BID [facility] Last Admin: 12/20/19 08:19 Dose: 20 mg Documented by: Data NPU : 12/15/19 03:43 12/15/19 03:43 A&P Additional A&P Information This is a 49-year-old white female with recent episode of drinking and a long history of mental health complaints with recent issues of bereavement who presents with confusion consistent with thiamine deficiency, with lack of clarity as to whether she will have resolution versus this is her baseline. 1. Continue current medication. 2. Continue thiamine and be vigilant to her clearing in her overall orientation. 3. Encourage individual, group and milieu therapy. 4. Continue every 15 minute checks for safety. 5. Recommend a high level sober living treatment which she is willing to commit but she is already saying she doesn't believe rehabilitation would be helpful for Involuntary Hold Information 96 Hour Hold: 96 Hour Involuntary Admission: Yes 96 Hour Hold Ending Date: 12/19/19 96 Hour Hold Ending Time: 21:28 Attestations NPU Medical Necessity Statement*: Inpatient hospitalization is medically necessary and the clinically appropriate intervention at this time. We will continue to monitor medications and titrate to effect. Her confusion and hallucinations are resolving but her risk of re-creating the same situation if she begins drinking right away is very significant. Likely length of stay 4-6 days. Coding Level of Care Code Acute Senior Accounting Manager for Hannah Fulton
[2019-12-20 14:00] VITALS: BP 136/81; PULSE 72; RESP 18; TEMP 36.7; O2SAT 99
[2019-12-20] MEDS: blistex lip oint 7 gm Tube 1 APPLIC TOPICAL ×3 (14:47→20:22)
[2019-12-20] MEDS: hyDROXYzine 25 mg Capsule 50 MG PO (20:22)
--- NOTE | 2019-12-20 20:23 | PC.NURSE ---
[id number] MG PO GIVEN FOR ANXIETY.
[2019-12-20 22:00] VITALS: BP 108/69; PULSE 82; RESP 17; TEMP 36.8; O2SAT 98
[2019-12-21 06:00] VITALS: BP 128/78; PULSE 66; RESP 16; TEMP 36.9; O2SAT 99
[2019-12-21] MEDS: thiamine 100 mg Tablet PO (08:43)
[2019-12-21] MEDS: ziprasidone hcl 20 mg Capsule PO ×2 (08:43→17:46)
[2019-12-21] MEDS: folic acid 1 mg Tablet PO (08:43)
[2019-12-21] MEDS: multivitamin therapeutic Tablet 1 TAB PO (08:43)
[2019-12-21] MEDS: blistex lip oint 7 gm Tube 1 APPLIC TOPICAL (08:43)
[2019-12-21 13:38] VITALS: BP 119/81; PULSE 70; RESP 18; TEMP 36.9; O2SAT 99
--- NOTE | 2019-12-21 14:36 | P.PN_ITS ---
Subjective NPU Subjective: Interval history: Yeimy presents today gaining clarity by the day with no notable deficits including absence of paranoia and hallucinations. She denies any problems with orientation. And we discussed the risks benefits and alternatives of considering Antabuse and referral to [facility] outpatient even though we can continue to identify the benefits of inpatient and she understood and agreed to proceed as is documented in this note. Mental Status Exam MSE Comments: This is an obese white female with adequate dress, grooming and eye contact. No abnormal movements except for mild psychomotor retardation. Cooperative with exam and in no acute distress. Speech was of slightly decreased rate and volume. Mood described as pretty good, Affect is congruent. Thought process organized. Patient denied any suicidal or homicidal ideation today, there were no delusions reported are noted, she denied any auditory or visual hallucinations. Attention and concentration were intact and memory appeared more reliable but none were formally tested. She is alert and oriented x 3. Insight and judgment are improving. Vitals/I&O/Wt Last Vital Signs Temp 98.5 F 12/21/19 13:38 Pulse 70 12/21/19 13:38 Resp 18 12/21/19 13:38 BP 119/81 12/21/19 13:38 Pulse Ox 99 12/21/19 13:38 Weight last 48 hrs Weight 129.898 kg Home Medications ferrous sulfate 325 mg (65 mg iron) tablet 325 mg PO BID #60 tab 11/11/19 [Rx Confirmed 12/13/19] Active Medications Al Hydrox/Mg Hydrox/Simethicone (Maalox) 15 ml PO Q6H PRN PRN Reason: INDIGESTION Benztropine Mesylate (Cogentin) 1 mg PO BID PRN PRN Reason: Mild Extrapyramidal symptoms Camphor/Menthol/Phenol (Blistex) 1 applic TOPICAL Q1H PRN PRN Reason: DRYNESS Last Admin: 12/21/19 08:43 Dose: 1 applic Documented by: Diphenhydramine HCl (Benadryl) 50 mg IM Q4H PRN PRN Reason: Severe Aggression Folic Acid (Folic Acid) 1 mg PO DAILY ALEX Last Admin: 12/21/19 08:43 Dose: 1 mg Documented by: Haloperidol (Haldol) 5 mg PO Q4H PRN PRN Reason: AGITATION Last Admin: 12/18/19 15:20 Dose: 5 mg Documented by: Haloperidol Lactate (Haldol Inj) 5 mg IM Q4H PRN PRN Reason: Severe Aggression Hydroxyzine Pamoate (Vistaril) 50 mg PO Q6H PRN PRN Reason: ANXIETY Last Admin: 12/21/19 21:24 Dose: 50 mg Documented by: Loperamide HCl (Imodium Capsule) 2 mg PO Q6H PRN PRN Reason: DIARRHEA Multivitamins Therapeutic (Multivitamin Tab) 1 tab PO DAILY [facility] Last Admin: 12/21/19 08:43 Dose: 1 tab Documented by: Nicotine (Nicoderm 21 Mg Patch) 1 patch TRANSDERMA DAILY PRN PRN Reason: NICOTINE WITHDRAWAL Nicotine Polacrilex (Nicorette) 2 mg BUCCAL Q2H PRN PRN Reason: NICOTINE WITHDRAWAL Ondansetron HCl (Zofran) 4 mg PO Q6H PRN PRN Reason: NAUSEA AND VOMITING Promethazine HCl (Phenergan) 12.5 mg PO Q6H PRN PRN Reason: NAUSEA Last Admin: 12/14/19 17:11 Dose: 12.5 mg Documented by: Thiamine Mononitrate (Vitamin B-1) 100 mg PO DAILY [facility] Last Admin: 12/21/19 08:43 Dose: 100 mg Documented by: Ziprasidone (Geodon) 20 mg PO BID [facility] Last Admin: 12/21/19 17:46 Dose: 20 mg Documented by: Data NPU : 12/15/19 03:43 12/15/19 03:43 A&P Additional A&P Information This is a 49-year-old white female with recent episode of drinking and a long history of mental health complaints with recent issues of bereavement who presents with confusion consistent with thiamine deficiency, with lack of clarity as to whether she will have resolution versus this is her baseline. 1. Continue current medication. Except: start antebuse 250 mg po bid. 2. Continue thiamine and be vigilant to her clearing in her overall orientation. 3. Encourage individual, group and milieu therapy. 4. Continue every 15 minute checks for safety. 5. Recommend a high level sober living treatment which she is willing to commit but she is already saying she doesn't believe rehabilitation would be helpful for Involuntary Hold Information 96 Hour Hold: 96 Hour Involuntary Admission: Yes 96 Hour Hold Ending Date: 12/19/19 96 Hour Hold Ending Time: 21:28 Attestations NPU Medical Necessity Statement*: Inpatient hospitalization is medically necessary and the clinically appropriate intervention at this time. We will continue to monitor medications and titrate to effect. Her confusion and hallucinations are resolving but her risk of re-creating the same situation if she begins drinking right away is very significant. Likely length of stay 2-4 days. Coding Level of Care Code Acute Circulation Manager for Hannah Fulton
[2019-12-21 21:23] VITALS: BP 133/87; PULSE 76; RESP 22; TEMP 36.9; O2SAT 98
[2019-12-21] MEDS: hyDROXYzine 25 mg Capsule 50 MG PO (21:24)
--- NOTE | 2019-12-21 21:24 | PC.NURSE ---
PRN VISTARIL VISTARIL 50MG PO PER PT C/O ANXIETY. WILL CONTINUE TO MONITOR FOR MEDICATION EFFECTIVENESS.
--- NOTE | 2019-12-21 22:30 | PC.NURSE ---
PRN VISTARIL FOLLOW UP MEDICATION EFFECTIVE. NO FURTHER C/O ANXIETY.
[2019-12-22 06:00] VITALS: BP 106/65; PULSE 64; RESP 18; TEMP 36.7; O2SAT 96
[2019-12-22] MEDS: multivitamin therapeutic Tablet 1 TAB PO (09:07)
[2019-12-22] MEDS: folic acid 1 mg Tablet PO (09:07)
[2019-12-22] MEDS: ziprasidone hcl 20 mg Capsule PO (09:07)
[2019-12-22] MEDS: thiamine 100 mg Tablet PO (09:07)
--- NOTE | 2019-12-22 12:25 | P.DS_ITS ---
Diagnoses at Discharge Discharge Diagnosis (1) Wernicke-Korsakoff syndrome (alcoholic): Status: Resolved Reason for Visit Reason for Visit: Reason For Visit: acute etoh intox;suicidal ideation;96 hour hold Brief History: History of Present Illness Yeimy Perry is a 49 year old with recurrent inpatient NPU admissions for alcohol abuse, reported lethality and alcohol intoxication or withdrawal. She presents today c/o drinking continuously since Sunday(today is Sunday) and having thoughts about hurting herself with a knife. Said she needed help with suicidal thoughts and her tremors that were starting, hence came to ER. Multiple episodes of nausea and vomiting+. No hematemesis. No kosta or BRPR. C/o chronic epigastric and RUQ pain ongoing since 4 months. Bedsise US performed in ER per verbal report shows liver cirrhosis. She is s/p cholecystectomy. Other notable labs upon admission are anion gap 25 (chronic), mild hyponatremia and hypochloremia, transaminitis AST 94, ALT 76, ALP 222 (chronic), T. bili 2.6, higher than at previous admissions. Tylenol level <5, alcohol level 413. No h/o fever. Abd/pelvis CT from 04/2019 showed normal liver. Unknown hepatitis serology status Providers/Reason for Consult Consulting Physican/Specialty*: Tushar Finley M.D. Psychiatry Reason for Consult*: Severe alcohol dependency with relapse; BAL .480. Patient verbalizes suicidal ideation. Requesting Physcian: Davina Hernandez MD Attending Physician: Domingo Hoffman Primary Care Provider: SOLEDAD Carlson Psych Consult HPI History of Present Illness Yeimy Perry is a 49 year old female with recurrent inpatient NPU admissions for alcohol abuse, reported suicidality and alcohol intoxication or withdrawal. She presents today c/o drinking continuously since Sunday(today is Sunday) and having thoughts about hurting herself with a knife. Said she needed help with suicidal thoughts and her tremors that were starting, hence came to ER. Hospital Course Hospital Course The patient is now launched into emotional lability and impulsiveness. We have called [facility] and the hospital second shift supervisor and there is no one by her fianc?'s name who is known to have . The patient has subsequently become quite delusional of a paranoid nature and, at one point thought her son had , which is also not true as far as we are able to determine. Yeimy presented to the emergency room with an extremely elevated BAL and was transferred to the ICU. Dr. Finley did a consultation and transferred her to the neuro psych unit. At that time she was diagnosed with Warnicke Korsakoff syndrome with psychotic features and short-term memory difficulties. She was on a 96-hour hold and a 21-day hold was filed. However with the appropriate use of folic acid and thiamine along with her other medications her psychosis resolved and her memory improved dramatically. As with previous hospitalization she endorsed having it up if any and not needing inpatient hospitalization/rehab and endorsed a desire for outpatient drug and alcohol rehabilitation services. During the hospitalization she had routine laboratory studies which were within normal limits except for a few outliers. No heart murmur laboratory disturbances included in the brief history above. Additionally she had a general medical evaluation which was within normal limits revealing the delirium/Warnicke Korsakoff syndrome noted but otherwise no new acute processes. Discharge Summary At the time of discharge there was no lethality, the patient's mood was stabilized, anxiety was well managed, there is no psychosis reported or noted, the patient endorsed a plan to follow-up with the referrals that were provided. The patient endorsed a plan to avoid alcohol and all other drugs of abuse. Evaluation revealed no credible lethality and the patient had obtained the maximum benefit from an inpatient hospitalization so the individual was discharged. Involuntary Hold Information 96 Hour Hold: 96 Hour Involuntary Admission: Yes 96 Hour Hold Ending Date: 12/19/19 96 Hour Hold Ending Time: 21:28 Mental Status Exam MSE Comments: This is an obese white female with adequate dress, grooming and eye contact. No abnormal movements except for mild psychomotor retardation. Cooperative with exam and in no acute distress. Speech was of slightly decreased rate and volume. Mood described as pretty good, Affect is congruent. Thought process organized. Patient denied any suicidal or homicidal ideation today, there were no delusions reported are noted, she denied any auditory or visual hallucinations. Attention and concentration were intact and memory appeared more reliable but none were formally tested. She is alert and oriented x 3. Insight and judgment are improving. Discharge Data Data Completed and Pending: Completed Studies During Hospitalization Category Date Time Status US gall bladder 7 6705 Stat Ultrasound 12/13/19 19:38 Completed Vitals: Last Vital Signs Temp 98.1 F 12/22/19 06:00 Pulse 64 12/22/19 06:00 Resp 18 12/22/19 06:00 BP 106/65 12/22/19 06:00 Pulse Ox 96 12/22/19 06:00 Discharge Plan Discharge Patient Disposition: Home, Self-Care Condition: Stable Prescriptions: New folic acid 1 mg Tablet 1 mg PO DAILY 30 Days Qty: 30 RF: 1 Vitamin B-1 (mononitrate) 100 mg Tablet 100 mg PO DAILY 30 Days Qty: 30 RF: 1 Thera 400 mcg Tablet 1 tab PO DAILY 30 Days Qty: 30 RF: 1 Antabuse 250 mg tablet 250 mg PO BID Qty: 60 RF: 1 Continued ferrous sulfate 325 mg (65 mg iron) tablet 325 mg PO BID Qty: 60 RF: 5 No Action diclofenac potassium 50 mg tablet 50 mg PO BID Qty: 60 RF: 2 ziprasidone HCl 40 mg capsule 40 mg PO BID Qty: 60 RF: 1 Discharge Orders: Discharge Order (Routine); Ordered 12/22/19 Ordered By: Antonio Kwong Referrals: Eric Hartman LCSW [Referring] - 12/29/19 4:00 pm Rosa Win APRN [Nurse Practitioner] - 12/25/19 10:00 am Anahi Schulz FNP [Primary Care Provider] - 01/07/20 3:30 pm Discharge Diet: Regular Discharge Activity: Resume usual activity Patient Instructions: Thiamine (Vitamin B-1) (By mouth), Disulfiram (By mouth), Folic Acid (By mouth), Ziprasidone (By mouth), Vitamin D (By mouth) Activity Restrictions/Additional Instructions: You may consider grief support. Sessions are offered for no cost at 12:oo noon at [facility] ([facility] [address] [place] [address]. Contact Andres Carbajal at [phone] for more information. Discharge Date/Time: 12/22/19 14:35 Discharge Attestations NPU Time Spent in Discharge Care*: greater than 30 min Specific Discharge Activities: Specific discharge activities: educating patient, discussing with upper caser/social workers/dc planners, documenting/other paperwork and evaluating patient/reviewing data Coding Level of Care Code Acute Fitness Floor Attendant for Chg Fwd Diagnoses Wernicke-Korsakoff syndrome (alcoholic) F10.96
[2019-12-22 13:21] VITALS: BP 106/65; PULSE 64; RESP 18; TEMP 36.7; O2SAT 96
--- NOTE | 2019-12-22 13:47 | PC.SOCIAL ---
Medicaid ride called for flower buncher or picker between 1:44pm-4:44pm. Trip ID# [id number].
== END 2019-12-22 14:35 | disposition home or self-care (01) | DRG 881 ==
LOC: ER 19:58 → ICU 22:57 → NP 12-15 08:26
PROVIDERS: Internal Medicine; Admitting Provider Student in an Organized Health Care Education/Training Program; Emergency Provider Family Medicine; Family Provider Nurse Practitioner; PCP Nurse Practitioner; Visit Provider Internal Medicine
DX: F32.9 Major depressive disorder, single episode, unspecified (principal); R45.851 Suicidal ideations; E87.1 Hypo-osmolality and hyponatremia; E51.9 Thiamine deficiency, unspecified; F10.259 Alcohol dependence with alcohol-induced psychotic disorder, unspecified; F10.232 Alcohol dependence with withdrawal with perceptual disturbance; Z68.41 Body mass index [BMI] 40.0-44.9, adult; F10.229 Alcohol dependence with intoxication, unspecified; E87.8 Other disorders of electrolyte and fluid balance, not elsewhere classified; E86.0 Dehydration; E66.9 Obesity, unspecified
CPT/HCPCS: 12345; 36415; 76705; 80048; 80053; 80306; 80307; 81001; 81025; 83690; 84443; 85025; 86705; 86706; 86709; 86803; 87340; 93005; 96372; 96375; 99284; J1650; J2060; J2405; J3411; J7030; Q0169

== ENCOUNTER → 2019-12-25 09:41 | Outpatient (BNVA) | payer MEDICAID, SELFPAY | PROVIDERS: Family Provider Nurse Practitioner; PCP Nurse Practitioner; Visit Provider Nurse Practitioner Psychiatric/Mental Health | DX: F10.20 Alcohol dependence, uncomplicated (principal); F43.12 Post-traumatic stress disorder, chronic | CPT/HCPCS: 99213 ==

== ENCOUNTER → 2019-12-29 15:21 | Outpatient (BNVA) | payer MEDICAID, SELFPAY | PROVIDERS: Family Provider Nurse Practitioner; PCP Nurse Practitioner; Visit Provider Social Worker Clinical | DX: F43.12 Post-traumatic stress disorder, chronic (principal); F10.20 Alcohol dependence, uncomplicated; F31.89 Other bipolar disorder | CPT/HCPCS: 90834 ==

== ENCOUNTER → 2020-01-01 15:49 | Outpatient (BNVA) | payer MEDICAID, SELFPAY | PROVIDERS: Family Provider Nurse Practitioner; PCP Nurse Practitioner; Visit Provider Nurse Practitioner Psychiatric/Mental Health | DX: F31.9 Bipolar disorder, unspecified; F43.12 Post-traumatic stress disorder, chronic; F10.20 Alcohol dependence, uncomplicated | CPT/HCPCS: 99213 ==

== ENCOUNTER → 2020-01-07 19:07 | Outpatient (BNVA) | payer MEDICAID, SELFPAY | PROVIDERS: Family Provider Nurse Practitioner; PCP Nurse Practitioner; Visit Provider Nurse Practitioner | DX: D50.9 Iron deficiency anemia, unspecified (principal); M17.11 Unilateral primary osteoarthritis, right knee; D50.8 Other iron deficiency anemias; F31.60 Bipolar disorder, current episode mixed, unspecified | CPT/HCPCS: 83540; 83550; 85025 ==

== ENCOUNTER 2020-01-14 10:53 | Emergency (ER) | payer MEDICAID, SELFPAY ==
[2020-01-14 10:53] VITALS: BP 139/106; PULSE 100; RESP 18; TEMP 36.6; O2SAT 98; BMI 39.5
--- NOTE | 2020-01-14 10:53 | ED_ITS ---
Entered by Kait Bull, acting as scribe for Aldo Jenkins DO HPI - Psych General: Chief Complaint: Psychiatric Symptoms Stated Complaint: SI Time Seen by Provider: 01/14/20 10:54 Source: patient, EMS and police Mode of arrival: EMS Limitations: no limitations History of Present Illness: HPI Narrative: 49 yo female presents with SI and depression. pt states this occurred just area captain. pt states she called 911 for help with feeling suicidal, but now wants to go home. pt states she had a plan to slice her neck with a knife. pt denies any other symptoms at this time. MD complaint: suicidal ideation and feels depressed Onset (ago): hour(s) (just area captain) Duration: getting worse History of same: No Relieving factors: none Exacerbating factors: none Associated psychiatric symptoms: depression Associated symptoms: Reports depression and suicidal ideation Treatments prior to arrival: none If self harm: admits thoughts of self harm and has plan (to cut her throat with a knife) Review of Systems Const: Denies: fever, chills, body aches, fatigue, malaise or night sweats Eyes: Denies: photophobia ENMT: Denies: enlarged tonsils Card: Denies: chest pain, palpitations, irregular heart rhythm, edema, syncope, shortness of breath on exertion, shortness of breath when lying down or leg pain with exertion Resp: Denies: shortness of breath, productive cough, non-productive cough or wheezing GI: Denies: abdominal pain, nausea, vomiting, vomiting blood, coffee grounds in vomit, difficulty swallowing, heartburn/indigestion, diarrhea, constipation, cramping, blood in stool or black tarry stool : Denies: flank pain, painful urination, urinary frequency, urinary urgency, urinary incontinence or blood in urine Musc: Denies: joint warmth Skin/Breast: Denies: rash, itching or redness Neuro: Denies: headache, numbness in extremities, weakness in extremities, changes in sensation, lack of coordination, difficulty walking, frequent falls, dizziness, vertigo or confusion Psych: Reports: depression and suicidal ideation Endo: Denies: excessive urination, excessive thirst, tired all the time or cold intolerance Marlon/Lymph: Denies: easy bruising, easy bleeding, petechiae, enlarged lymph nodes or tender lymph nodes All/Imm: Denies: acute wheezing PFSH ED PFSH: Social History Smoking and tobacco status: never smoked Alcohol intake: former Year of sobriety/quit date alcohol: 2019 Former alcohol use details: stopped drinking 12/13/2019 Desire information about alcohol rehabilitation?: No Counseling given: No History of recent travel: No Female Reproductive History: Date of last menstrual period: 01/05/20 Physical Exam Const: COMMON NORMALS: no apparent distress GENERAL APPEARANCE: cooperative and comfortable ORIENTATION/CONSCIOUSNESS: Yes awake, Yes oriented to person, Yes oriented to place and Yes oriented to time HENMT: COMMON NORMALS: normocephalic, head/scalp atraumatic, hearing grossly normal bilaterally, external ears normal, EAC's normal, TM's normal bilaterally, nasal mucous membranes and turbinates normal, moist oral mucous membranes and oropharynx normal HEAD & SCALP: normocephalic and atraumatic NOSE: nasal mucous membranes and turbinates normal EXTERNAL EAR: Yes external ears normal EXTERNAL AUDITORY CANAL: EAC's normal TYMPANIC MEMBRANE: TM's normal bilaterally Eye: COMMON NORMALS: PERRL, EOMs intact bilaterally, conjunctivae normal and no scleral icterus CONJUNCTIVA: Yes conjunctivae normal PUPIL: Yes PERRL Neck/C-Spine: COMMON NORMALS: full ROM, no lymphadenopathy, supple and no JVD Lymph: LYMPHATIC: no lymphadenopathy noted and no lymphedema noted Resp: COMMON NORMALS: normal respiratory effort, no retractions, no use of accessory muscles and clear to auscultation bilaterally AUSCULTATION: clear to auscultation bilaterally Cardio: COMMON NORMALS: no JVD, regular rate, regular rhythm and no murmurs RATE: regular rate RHYTHM: regular rhythm GI: COMMON NORMALS: soft to palpation and no hepatosplenomegaly AUSCULTATION: Yes normoactive bowel sounds PALPATION: Yes soft, No tender, No guarding and Yes no hepatosplenomegaly Extremity: COMMON NORMALS: normal to inspection, normal capillary refill, no clubbing, cyanosis or edema, no calf tenderness and no pedal edema Neuro: SENSORIUM/ORIENTATION: Yes oriented to person, Yes oriented to place and Yes oriented to time Psych: ATTITUDE: Yes calm MOOD & AFFECT: Yes depressed mood THOUGHT PROCESS: racing thoughts THOUGHT CONTENT: Yes suicidality Skin: COMMON NORMALS: no rashes or lesions noted GENERAL SKIN EXAM: no rashes or lesions noted MDM - Psych MDM Narrative: Medical decision making narrative: Patient has severely flat affect and is acutely intoxicated discussed with Dr. Finley is on-call for psychiatry at the moment they do not have beds available in the psychiatry unit for this patient. Working to look at trying to get her transferred. We will recheck with our psychiatry unit before transferring her to see if any beds have opened up. Lab Data: Labs: Lab Results 01/14/20 01/14/20 01/14/20 Range/Units 11:08 11:08 11:35 WBC 8.8 (4.0-10.0) 10^3/ uL RBC 4.96 (4.1-5.3) 10^6/u L Hgb 13.9 (11.5-15.3) g/dL Hct 46.3 (37.0-47.0) % MCV 93.3 (81-99) fL MCH 28.0 (28.0-34.0) pg MCHC 30.0 (30.0-36.0) g/dL RDW 17.7 H (12.1-15.1) % Plt Count 232 (130-400) 10^3/c mm MPV 9.5 (7.4-10.4) fL Neut % (Auto) 70.7 % Lymph % (Auto) 21.9 % [place] % (Auto) 5.9 % Eos % (Auto) 0.7 % Baso % (Auto) 0.5 % Neut # (Auto) 6.2 (1.8-7.7) 10^3/u L Lymph # (Auto) 1.9 (0.8-4.8) 10^3/u L [place] # (Auto) 0.5 (0.2-0.9) 10^3/u L Eos # (Auto) 0.1 (0.0-0.8) 10^3/u L Baso # (Auto) 0.0 (0.0-0.1) 10^3/u L Nucleated RBC % (a uto) 0 % Nucleated RBCs # 0.0 /100WBC Sodium (136-145) mmol/L Potassium (3.5-5.1) mmol/L Chloride (98-107) mmol/L Carbon Dioxide (22-29) mmol/L Anion Gap (5-19) BUN (6-20) mg/dL Creatinine (0.5-0.9) mg/dL GFR Calculation (90-130) mL/min Glucose (65-115) mg/dL Calculated Osmolal ity (285-295) mOsm/k g Calcium (8.5-10.5) mg/dL Total Bilirubin (0.15-1.2) mg/dL AST (0-32) U/L ALT (0-33) U/L Alkaline Phosphata se (35-105) IU/L Total Protein (6.6-8.7) g/dL Albumin (3.5-5.2) g/dL Globulin (1.3-4.6) g/dL Urine Color Yellow (Yellow) Urine Appearance Cloudy (CLEAR) Urine pH 5 (5-7) Ur Specific Gravit y 1.025 (1.005-1.030) Urine Protein 1+ H (Negative) Urine Glucose (UA) Norm (Normal) Urine Ketones Negative (Negative) Urine Blood 2+ H (Negative) Urine Nitrate Negative (Negative) Urine Bilirubin Neg (NEGATIVE) Urine Urobilinogen Norm (Negative) mg/dL Ur Leukocyte Marlys ase Negative (Negative) Urine RBC 0-4 H (0-2) /hpf Urine WBC None (0-5) /hpf Ur Squamous Epith Cells 5-10 H (0-5) Urine Bacteria 1+ H (NONE) Hyaline Casts 0-4 H Urine Opiates Scre en Negative (Negative) ng/mL Acetaminophen (10-30) ug/mL Ur Barbiturates Sc reen Negative (Negative) ng/mL Ur Phencyclidine S crn Negative (Negative) ng/mL Ur Amphetamines Sc reen Negative (Negative) ng/mL U Benzodiazepines Scrn Negative (Negative) ng/mL Urine Cocaine Scre en Negative (Negative) ng/mL U Marijuana (THC) Screen Negative (Negative) ng/mL Ethyl Alcohol (0-10) mg/dL 01/14/20 01/14/20 01/14/20 Range/Units 11:35 11:35 16:15 WBC (4.0-10.0) 10^3/ uL RBC (4.1-5.3) 10^6/u L Hgb (11.5-15.3) g/dL Hct (37.0-47.0) % MCV (81-99) fL MCH (28.0-34.0) pg MCHC (30.0-36.0) g/dL RDW (12.1-15.1) % Plt Count (130-400) 10^3/c mm MPV (7.4-10.4) fL Neut % (Auto) % Lymph % (Auto) % [place] % (Auto) % Eos % (Auto) % Baso % (Auto) % Neut # (Auto) (1.8-7.7) 10^3/u L Lymph # (Auto) (0.8-4.8) 10^3/u L [place] # (Auto) (0.2-0.9) 10^3/u L Eos # (Auto) (0.0-0.8) 10^3/u L Baso # (Auto) (0.0-0.1) 10^3/u L Nucleated RBC % (a uto) % Nucleated RBCs # /100WBC Sodium 137 (136-145) mmol/L Potassium 4.5 (3.5-5.1) mmol/L Chloride 98 (98-107) mmol/L Carbon Dioxide 19 L (22-29) mmol/L Anion Gap 24.5 H (5-19) BUN 12 (6-20) mg/dL Creatinine 0.6 (0.5-0.9) mg/dL GFR Calculation 107.2 (90-130) mL/min Glucose 107 (65-115) mg/dL Calculated Osmolal ity 281 L (285-295) mOsm/k g Calcium 9.1 (8.5-10.5) mg/dL Total Bilirubin 0.6 (0.15-1.2) mg/dL AST 26 (0-32) U/L ALT 16 (0-33) U/L Alkaline Phosphata se 79 (35-105) IU/L Total Protein 7.1 (6.6-8.7) g/dL Albumin 3.8 (3.5-5.2) g/dL Globulin 3.3 (1.3-4.6) g/dL Urine Color (Yellow) Urine Appearance (CLEAR) Urine pH (5-7) Ur Specific Gravit y (1.005-1.030) Urine Protein (Negative) Urine Glucose (UA) (Normal) Urine Ketones (Negative) Urine Blood (Negative) Urine Nitrate (Negative) Urine Bilirubin (NEGATIVE) Urine Urobilinogen (Negative) mg/dL Ur Leukocyte Marlys ase (Negative) Urine RBC (0-2) /hpf Urine WBC (0-5) /hpf Ur Squamous Epith Cells (0-5) Urine Bacteria (NONE) Hyaline Casts Urine Opiates Scre en (Negative) ng/mL Acetaminophen < 5.0 L (10-30) ug/mL Ur Barbiturates Sc reen (Negative) ng/mL Ur Phencyclidine S crn (Negative) ng/mL Ur Amphetamines Sc reen (Negative) ng/mL U Benzodiazepines Scrn (Negative) ng/mL Urine Cocaine Scre en (Negative) ng/mL U Marijuana (THC) Screen (Negative) ng/mL Ethyl Alcohol 288 H Cancelled 116 H (0-10) mg/dL Discharge Plan Discharge Patient Disposition: Xfer Psychiatric Hosp Clinical Impression: Suicidal ideation, Alcohol use disorder, severe, dependence, Depression Condition: Stable Referrals: Anahi Schulz FNP [Primary Care Provider] - Discharge Date/Time: 01/14/20 18:44 Coding Level of Care Code ED Sustainability Analyst for Chg Fwd Exam Comprehensive The documentation recorded by the Jorgito schulz Bridget Annette, accurately reflects the service I personally performed and the decisions made by Alice khan Curtis L, DO Jan 14, 2020 10:53
--- NOTE | 2020-01-14 11:24 | PC.NURSE ---
please see 1:1 charting for further documentation
[2020-01-14 11:25] VITALS: RESP 15
[2020-01-14 11:42] LABS: Basophils % 0.5 %; Eosinophils # 0.1 10^3/uL (0.0-0.8); Eosinophils % 0.7 %; Hematocrit 46.3 % (37.0-47.0); Hemoglobin 13.9 g/dL (11.5-15.3); Lymphocytes # 1.9 10^3/uL (0.8-4.8); Lymphocytes % 21.9 %; Mean Corpuscular Volume 93.3 fL (81-99); Mean Platelet Volume 9.5 fL (7.4-10.4); Monocytes # 0.5 10^3/uL (0.2-0.9); Monocytes % 5.9 %; Neutrophils # 6.2 10^3/uL (1.8-7.7); Neutrophils % 70.7 %; Nucleated Red Blood Cells % 0 %; Platelet Count 232 10^3/cmm (130-400); Red Blood Count 4.96 10^6/uL (4.1-5.3); Red Cell Distribution Width 17.7 % (12.1-15.1); White Blood Count 8.8 10^3/uL (4.0-10.0)
[2020-01-14] MEDS: LORazepam 2 mg Tablet PO (11:42)
[2020-01-14 11:46] LABS: Amphetamines Screen Urine Negative (Negative); Barbiturates Screen Urine Negative (Negative); Benzodiazepines Screen Urine Negative (Negative); Cocaine Screen Urine Negative (Negative); Opiate Screen Urine Negative (Negative); PCP Screen Urine Negative (Negative); THC Screen Urine Negative (Negative)
[2020-01-14 11:53] LABS: Add Urine Microscopic? YES; Bilirubin Urine Neg (NEGATIVE); Blood Urine 2+ (Negative); Glucose Urine UA Norm (Normal); Ketones Urine Negative (Negative); Leukocyte Esterase Urine Negative (Negative); Nitrate Urine Negative (Negative); Protein Urine 1+ (Negative); Specific Gravity, Urine 1.025 (1.005-1.030); Urine Appearance Cloudy (CLEAR); Urine Color Yellow (Yellow); Urobilinogen Urine Norm (Negative); pH Urine 5 (5-7)
[2020-01-14 11:54] LABS: Add Urine Culture? No; Bacteria Urine 1+; Hyaline Casts Urine 0-4; RBC Urine 0-4 /hpf (0-2)
[2020-01-14 12:02] LABS: Alanine Aminotransferase 16 U/L (0-33); Albumin Level 3.8 g/dL (3.5-5.2); Alcohol Level 288 mg/dL (0-10); Alkaline Phosphatase 79 IU/L (35-105); Anion Gap 24.5 (5-19); Aspartate Amino Transferase 26 U/L (0-32); Blood Urea Nitrogen 12 mg/dL (6-20); Calcium 9.1 mg/dL (8.5-10.5); Carbon Dioxide 19 mmol/L (22-29); Chloride 98 mmol/L (98-107); Globulin 3.3 g/dL (1.3-4.6); Glomerular Filtration Rate 107.2 mL/min (90-130); Glucose 107 mg/dL (65-115); Osmolality Calculated 281 mOsm/kg (285-295); Potassium 4.5 mmol/L (3.5-5.1); Sodium 137 mmol/L (136-145); Total Bilirubin 0.6 mg/dL (0.15-1.2); Total Protein 7.1 g/dL (6.6-8.7)
[2020-01-14 12:08] LABS: Acetaminophen < 5.0 ug/mL (10-30)
[2020-01-14] MEDS: ibuprofen 200 mg Tablet 400 MG PO (13:03)
--- NOTE | 2020-01-14 15:18 | ECG_ITS ---
Measurements Intervals [place] Rate: 125 P: 51 SC: 159 QRS: 60 QRSD: 86 T: 29 QT: 317 QTc: 457 SINUS TACHYCARDIA ABNORMAL RHYTHM ECG Poor R wave progression Compared to ECG 12/15/2019 10:27:18 Sinus rhythm no longer present Electronically Signed On 01-14-2020 18:24:22 CDT by Asher Saxena M.D. [email or web address]
[2020-01-14] MEDS: LORazepam 1 mg Tablet PO (15:29)
[2020-01-14 16:36] LABS: Alcohol Level 116 mg/dL (0-10)
[2020-01-14 18:44] VITALS: RESP 16; O2SAT 98
== END 2020-01-14 18:44 ==
PROVIDERS: Emergency Provider Family Medicine; Family Provider Nurse Practitioner; PCP Nurse Practitioner
DX: R45.851 Suicidal ideations (principal); F32.9 Major depressive disorder, single episode, unspecified; F10.20 Alcohol dependence, uncomplicated
CPT/HCPCS: 12345; 36415; 80053; 80306; 80307; 81001; 85025; 93005; 99284; 99285

== ENCOUNTER → 2020-01-19 08:35 | Outpatient (BNVA) | payer MEDICAID, SELFPAY | PROVIDERS: Family Provider Nurse Practitioner; PCP Nurse Practitioner; Visit Provider Nurse Practitioner Psychiatric/Mental Health | DX: F43.12 Post-traumatic stress disorder, chronic (principal); F31.60 Bipolar disorder, current episode mixed, unspecified; F10.20 Alcohol dependence, uncomplicated | CPT/HCPCS: 99213 ==

== ENCOUNTER → 2020-01-20 15:19 | Outpatient (BNVA) | payer MEDICAID, SELFPAY | PROVIDERS: Family Provider Nurse Practitioner; PCP Nurse Practitioner; Visit Provider Social Worker Clinical | DX: F43.12 Post-traumatic stress disorder, chronic (principal); F31.60 Bipolar disorder, current episode mixed, unspecified | CPT/HCPCS: 90832 ==

== ENCOUNTER 2020-01-25 11:32 | Observation (INO) | payer MEDICAID, SELFPAY ==
[2020-01-25 11:33] VITALS: BMI 39.5
[2020-01-25 11:36] VITALS: BP 149/97; PULSE 116; RESP 16; TEMP 36.9; O2SAT 97
--- NOTE | 2020-01-25 11:39 | W.ED.PSYCH ---
HPI - Psych General: Chief Complaint: Psychiatric Symptoms Stated Complaint: SI; ETOH Time Seen by Provider: 01/25/20 11:33 History of Present Illness: HPI Narrative: 49-year-old female who comes in via EMS for chief complaint that she plans to cut her throat. She is acutely intoxicated admits to having drank a pint of hard liquor. She was recently admitted with the same complaint to the [facility] here. She had a half-way problem with alcohol use. MD complaint: suicidal ideation Duration: changing over time History of same: Yes Context: recent alcohol abuse Associated psychiatric symptoms: depression and suicidal ideation Treatments prior to arrival: none If self harm: admits thoughts of self harm and has plan Review of Systems Const: Denies: fever, chills, body aches, change in appetite, fatigue or malaise ENMT: Denies: throat pain, ear pain, nasal discharge or nasal congestion Card: Denies: chest pain, edema, shortness of breath on exertion or shortness of breath when lying down Resp: Denies: shortness of breath, productive cough or non-productive cough GI: Denies: abdominal pain, nausea, vomiting, vomiting blood, coffee grounds in vomit, diarrhea, constipation, bloating, blood in stool or black tarry stool : Denies: flank pain, difficulty urinating, painful urination, urinary frequency or urinary urgency Skin/Breast: Denies: rash or itching PFSH ED PFSH: Social History Smoking and tobacco status: never smoked Alcohol intake: former Year of sobriety/quit date alcohol: 2019 Former alcohol use details: stopped drinking 12/13/2019 Desire information about alcohol rehabilitation?: No Counseling given: No History of recent travel: No Female Reproductive History: Date of last menstrual period: 01/21/20 Physical Exam Const: COMMON NORMALS: average body habitus GENERAL APPEARANCE: cooperative, well kempt and well developed NUTRITIONAL APPEARANCE: obese HENMT: COMMON NORMALS: normocephalic, head/scalp atraumatic, EAC's normal, TM's normal bilaterally, external nose normal, moist oral mucous membranes and oropharynx normal HEAD & SCALP: normocephalic and atraumatic NOSE: external nose normal EXTERNAL AUDITORY CANAL: EAC's normal TYMPANIC MEMBRANE: TM's normal bilaterally MOUTH: oral and palatal mucosa normal, lip normal and tongue normal THROAT: posterior oropharynx normal and tonsils normal Eye: COMMON NORMALS: conjunctivae normal and no scleral icterus CONJUNCTIVA: Yes conjunctivae normal Neck/C-Spine: COMMON NORMALS: full ROM, no lymphadenopathy, supple, no meningeal signs and thyroid normal THYROID: thyroid normal and asymmetrical Lymph: LYMPHATIC: no lymphadenopathy noted Resp: COMMON NORMALS: normal respiratory effort, no retractions, no use of accessory muscles and clear to auscultation bilaterally AUSCULTATION: clear to auscultation bilaterally Cardio: COMMON NORMALS: regular rate and regular rhythm RATE: regular rate RHYTHM: regular rhythm HEART SOUNDS: no murmurs GI: COMMON NORMALS: normal to inspection, nondistended, normoactive bowel sounds, soft to palpation and no hepatosplenomegaly PALPATION: Yes soft and Yes no hepatosplenomegaly : COMMON NORMALS: Yes no CVA tenderness BLADDER/KIDNEY EXAM: Yes no CVA tenderness Back/Pelvis: COMMON NORMALS: no CVA tenderness LUMBAR SPINE/LOWER BACK: Yes normal to inspection Extremity: COMMON NORMALS: no clubbing, cyanosis or edema, no calf tenderness and no pedal edema Neuro: MENINGEAL SIGNS: Yes no meningeal signs Psych: APPEARANCE: Yes well kempt Skin: COMMON NORMALS: no rashes or lesions noted and skin turgor normal GENERAL SKIN EXAM: no rashes or lesions noted and turgor normal MDM - Psych MDM Narrative: Medical decision making narrative: Discussed with Dr. Kwong he will admit the patient for suicidal ideation. Lab Data: Labs: Lab Results 01/25/20 01/25/20 Range/Units 11:47 11:47 WBC 7.2 (4.0-10.0) 10^3/ uL RBC 4.31 (4.1-5.3) 10^6/u L Hgb 12.3 (11.5-15.3) g/dL Hct 37.6 (37.0-47.0) % MCV 87.2 (81-99) fL MCH 28.5 (28.0-34.0) pg MCHC 32.7 (30.0-36.0) g/dL RDW 17.2 H (12.1-15.1) % Plt Count 195 (130-400) 10^3/c mm MPV 9.3 (7.4-10.4) fL Neut % (Auto) 64.1 % Lymph % (Auto) 24.3 % [place] % (Auto) 10.4 % Eos % (Auto) 0.3 % Baso % (Auto) 0.6 % Neut # (Auto) 4.6 (1.8-7.7) 10^3/u L Lymph # (Auto) 1.8 (0.8-4.8) 10^3/u L [place] # (Auto) 0.8 (0.2-0.9) 10^3/u L Eos # (Auto) 0.0 (0.0-0.8) 10^3/u L Baso # (Auto) 0.0 (0.0-0.1) 10^3/u L Nucleated RBC % (a uto) 0 % Nucleated RBCs # 0.0 /100WBC Sodium 135 L (136-145) mmol/L Potassium 4.1 (3.5-5.1) mmol/L Chloride 94 L (98-107) mmol/L Carbon Dioxide 23 (22-29) mmol/L Anion Gap 22.1 H (5-19) BUN 8 (6-20) mg/dL Creatinine 0.6 (0.5-0.9) mg/dL GFR Calculation 107.2 (90-130) mL/min Glucose 117 H (65-115) mg/dL Calculated Osmolal ity 277 L (285-295) mOsm/k g Calcium 9.0 (8.5-10.5) mg/dL Total Bilirubin 1.1 (0.15-1.2) mg/dL AST 57 H (0-32) U/L ALT 46 H (0-33) U/L Alkaline Phosphata se 124 H (35-105) IU/L Total Protein 7.5 (6.6-8.7) g/dL Albumin 4.2 (3.5-5.2) g/dL Globulin 3.3 (1.3-4.6) g/dL Salicylates < 0.3 L (3-10) mg/dL Acetaminophen < 5.0 L (10-30) ug/mL Ethyl Alcohol 263 H (0-10) mg/dL Discharge Plan Discharge Clinical Impression: Suicidal ideation, Alcohol use disorder, severe, dependence, Alcohol dependence Condition: Stable Prescriptions: No Action ferrous sulfate 325 mg (65 mg iron) tablet 325 mg PO BID Qty: 60 RF: 5 diclofenac potassium 50 mg tablet 50 mg PO BID Qty: 60 RF: 2 folic acid 1 mg Tablet 1 mg PO DAILY 30 Days Qty: 30 RF: 1 thiamine mononitrate (vit B1) [Vitamin B-1 (mononitrate)] 100 mg Tablet 100 mg PO DAILY 30 Days Qty: 30 RF: 1 Thera 400 mcg Tablet 1 tab PO DAILY 30 Days Qty: 30 RF: 1 disulfiram [Antabuse] 250 mg tablet 250 mg PO BID Qty: 60 RF: 1 ziprasidone HCl 40 mg capsule 20 mg PO BID RF: 0 Referrals: Anahi Schulz FNP [Primary Care Provider] - Coding Level of Care Code ED Irrigating Pump Operator for Chg Fwd Exam Comprehensive
[2020-01-25 11:44] VITALS: O2SAT 94
[2020-01-25 11:52] LABS: Basophils % 0.6 %; Eosinophils % 0.3 %; Hematocrit 37.6 % (37.0-47.0); Hemoglobin 12.3 g/dL (11.5-15.3); Lymphocytes # 1.8 10^3/uL (0.8-4.8); Lymphocytes % 24.3 %; Mean Corpuscular HGB Conc 32.7 g/dL (30.0-36.0); Mean Corpuscular Hemoglobin 28.5 pg (28.0-34.0); Mean Corpuscular Volume 87.2 fL (81-99); Mean Platelet Volume 9.3 fL (7.4-10.4); Monocytes # 0.8 10^3/uL (0.2-0.9); Monocytes % 10.4 %; Neutrophils # 4.6 10^3/uL (1.8-7.7); Neutrophils % 64.1 %; Nucleated Red Blood Cells % 0 %; Platelet Count 195 10^3/cmm (130-400); Red Blood Count 4.31 10^6/uL (4.1-5.3); Red Cell Distribution Width 17.2 % (12.1-15.1); White Blood Count 7.2 10^3/uL (4.0-10.0)
[2020-01-25 12:06] LABS: Alanine Aminotransferase 46 U/L (0-33); Albumin Level 4.2 g/dL (3.5-5.2); Alcohol Level 263 mg/dL (0-10); Alkaline Phosphatase 124 IU/L (35-105); Anion Gap 22.1 (5-19); Aspartate Amino Transferase 57 U/L (0-32); Blood Urea Nitrogen 8 mg/dL (6-20); Carbon Dioxide 23 mmol/L (22-29); Chloride 94 mmol/L (98-107); Globulin 3.3 g/dL (1.3-4.6); Glomerular Filtration Rate 107.2 mL/min (90-130); Glucose 117 mg/dL (65-115); Osmolality Calculated 277 mOsm/kg (285-295); Potassium 4.1 mmol/L (3.5-5.1); Sodium 135 mmol/L (136-145); Total Bilirubin 1.1 mg/dL (0.15-1.2); Total Protein 7.5 g/dL (6.6-8.7)
[2020-01-25 12:24] LABS: Acetaminophen < 5.0 ug/mL (10-30); Salicylate < 0.3 mg/dL (3-10)
[2020-01-25 12:43] LABS: Add Urine Microscopic? NO
[2020-01-25 12:44] VITALS: BP 139/86; PULSE 102; RESP 16; TEMP 36.9
[2020-01-25 12:47] LABS: Bilirubin Urine Neg (NEGATIVE); Blood Urine Neg (Negative); Glucose Urine UA Norm (Normal); Ketones Urine Negative (Negative); Leukocyte Esterase Urine Negative (Negative); Nitrate Urine Negative (Negative); Protein Urine Neg (Negative); Urine Appearance Clear (CLEAR); Urine Color Yellow (Yellow); Urobilinogen Urine Norm (Negative); pH Urine 6.5 (5-7)
[2020-01-25 13:03] VITALS: BP 150/83; PULSE 101; RESP 18; TEMP 37; O2SAT 97
[2020-01-25 13:30] LABS: Amphetamines Screen Urine Negative (Negative); Barbiturates Screen Urine Negative (Negative); Benzodiazepines Screen Urine Negative (Negative); Cocaine Screen Urine Negative (Negative); Opiate Screen Urine Negative (Negative); PCP Screen Urine Negative (Negative); THC Screen Urine Negative (Negative)
[2020-01-25 14:00] VITALS: BP 150/83; PULSE 98; RESP 18; TEMP 37; O2SAT 94
--- NOTE | 2020-01-25 16:15 | PC.NURSE ---
CIWA SCORE 11 ATIVAN 2 MG GIVEN PO PER PROTOCOL. PT CAME TO NURSES STATION, C/O SEEING THINGS MILDLY ANXIOUS/AGITATED. TOOK MED WITHOUT COMPLAINT. WILL CONT TO MONITOR
[2020-01-25] MEDS: LORazepam 2 mg Tablet PO (16:16)
[2020-01-25] MEDS: hyDROXYzine 25 mg Capsule 50 MG PO (20:18)
[2020-01-25] MEDS: trazodone 50 mg Tablet PO (20:18)
--- NOTE | 2020-01-25 20:18 | PC.NURSE ---
Pt given PRN trazodone and visteril at this time.
[2020-01-25 20:57] VITALS: BP 143/90; PULSE 96; RESP 21; TEMP 37.2; O2SAT 94
[2020-01-26 06:00] VITALS: BP 137/90; PULSE 72; RESP 16; TEMP 36.9; O2SAT 96
[2020-01-26] MEDS: folic acid 1 mg Tablet PO (08:44)
[2020-01-26] MEDS: thiamine 100 mg Tablet PO (08:44)
[2020-01-26] MEDS: multivitamin therapeutic Tablet 1 TAB PO (08:44)
--- NOTE | 2020-01-26 08:50 | P.HP_ITS ---
Providers/Chief Complaint Admitting Physician: Antonio Kwong MD Primary Care Provider: SOLEDAD Carlson Chief Complaint: SI; ETOH HPI NPU History of Present Illness Yeimy Perry is a 49 year old female who presented to the emergency room with an elevated blood alcohol level, intoxicated and endorsing thoughts to kill herself. She was admitted to the neuro psych unit and reported what had occurred was she got the Antabuse that was prescribed at her previous admission and she took religiously for a month and had great success with it. Then [facility] had it on back order and she couldn't find it anywhere else and after a few days off of it there was a libertarian last gathering where someone brought alcohol, and she relapsed and was fearful that it would begin a long drawnout episode and she was fearful of the return of the Warnicke Korsakoff so she came to the hospital. Now that she has slept a little bit she feels like she is going to be able to manage it while she tried to find someplace that had the medication. We attempted to call a couple places while she was here and it was on back order those places well the name brand which might be available in some places it is not covered by Medicaid and is over $700. She denied all lethality or any other issues. She reports that she is living at the same place and has no changes in her psychosocial circumstances or history as compared to her December or October hospitalizations. Diagnoses at Discharge Discharge Diagnosis (1) Wernicke-Korsakoff syndrome (alcoholic): Status: Resolved Reason for Visit Reason for Visit: Reason For Visit: acute etoh intox;suicidal ideation;96 hour hold Brief History: History of Present Illness Yeimy Perry is a 49 year old with recurrent inpatient NPU admissions for alcohol abuse, reported lethality and alcohol intoxication or withdrawal. She presents today c/o drinking continuously since Sunday(today is Sunday) and having thoughts about hurting herself with a knife. Said she needed help with suicidal thoughts and her tremors that were starting, hence came to ER. Multiple episodes of nausea and vomiting+. No hematemesis. No kosta or BRPR. C/o chronic epigastric and RUQ pain ongoing since 4 months. Bedsise US performed in ER per verbal report shows liver cirrhosis. She is s/p cholecystectomy. Other notable labs upon admission are anion gap 25 (chronic), mild hyponatremia and hypochloremia, transaminitis AST 94, ALT 76, ALP 222 (chronic), T. bili 2.6, higher than at previous admissions. Tylenol level <5, alcohol level 413. No h/o fever. Abd/pelvis CT from 04/2019 showed normal liver. Unknown hepatitis serology status Providers/Reason for Consult Consulting Physican/Specialty*: Tushar Finley M.D. Psychiatry Reason for Consult*: Severe alcohol dependency with relapse; BAL .480. Patient verbalizes suicidal ideation. Requesting Physcian: Davina Hernandez MD Attending Physician: Domingo Hoffman Primary Care Provider: SOLEDAD Carlson Psych Consult HPI History of Present Illness Yeimy Perry is a 49 year old female with recurrent inpatient NPU admissions for alcohol abuse, reported suicidality and alcohol intoxication or withdrawal. She presents today c/o drinking continuously since Sunday(today is Sunday) and having thoughts about hurting herself with a knife. Said she needed help with suicidal thoughts and her tremors that were starting, hence came to ER. Hospital Course Hospital Course The patient is now launched into emotional lability and impulsiveness. We have called [facility] and the hospital correctional supply supervisor and there is no one by her fianc?'s name who is known to have . The patient has subsequently become quite delusional of a paranoid nature and, at one point thought her son had , which is also not true as far as we are able to determine. Yeimy presented to the emergency room with an extremely elevated BAL and was transferred to the ICU. Dr. Finley did a consultation and transferred her to the neuro psych unit. At that time she was diagnosed with Warnicke Korsakoff syndrome with psychotic features and short-term memory difficulties. She was on a 96-hour hold and a 21-day hold was filed. However with the appropriate use of folic acid and thiamine along with her other medications her psychosis resolved and her memory improved dramatically. As with previous hospitalization she endorsed having it up if any and not needing inpatient hospitalization/rehab and endorsed a desire for outpatient drug and alcohol rehabilitation services. During the hospitalization she had routine laboratory studies which were within normal limits except for a few outliers. No heart murmur laboratory disturbances included in the brief history above. Additionally she had a general medical evaluation which was within normal limits revealing the delirium/Warnicke Korsakoff syndrome noted but otherwise no new acute processes. Discharge Summary At the time of discharge there was no lethality, the patient's mood was stabilized, anxiety was well managed, there is no psychosis reported or noted, the patient endorsed a plan to follow-up with the referrals that were provided. The patient endorsed a plan to avoid alcohol and all other drugs of abuse. Evaluation revealed no credible lethality and the patient had obtained the maximum benefit from an inpatient hospitalization so the individual was discharged. Meds NPU Home Medications Medication Instructions Recorded Confirmed Type ziprasidone HCl 20 mg PO BID 01/14/20 01/25/20 History Allergies Allergy/AdvReac Type Severity Reaction Status Date / Time acetaminophen [From [place]] Allergy ADR-Itching Verified 01/25/20 11:38 hydrocodone [From [place]] Allergy ADR-Itching Verified 01/25/20 11:38 PFSH NPU PFSH: Social History Smoking and tobacco status: never smoked Alcohol intake: former Year of sobriety/quit date alcohol: 2019 Former alcohol use details: stopped drinking 12/13/2019 Desire information about alcohol rehabilitation?: No Counseling given: No History of recent travel: No Mental Status Exam MSE Comments: This is an obese white female with adequate dress, grooming and eye contact. No abnormal movements except for mild psychomotor retardation. Cooperative with exam and in no acute distress. Speech was of slightly decreased rate and volume. Mood described as better, Affect is congruent. Thought process organized. Patient denied any suicidal or homicidal ideation , there were no delusions reported are noted, she denied any auditory or visual hallucinations. Attention and concentration were intact and memory appeared reliable but none were formally tested. She is alert and oriented x 3. Insight and judgment are improving. Vitals/I&O/Wt Last Vital Signs Temp 98.5 F 01/26/20 06:00 Pulse 72 01/26/20 06:00 Resp 16 01/26/20 06:00 BP 137/90 01/26/20 06:00 Pulse Ox 96 01/26/20 06:00 Weight last 48 hrs Weight 117.934 kg Home Medications ferrous sulfate 325 mg (65 mg iron) tablet 325 mg PO BID #60 tab 11/11/19 [Rx Confirmed 01/25/20] disulfiram [Antabuse] 250 mg PO BID #60 tab 12/22/19 [Rx Confirmed 01/25/20] folic acid 1 mg PO DAILY 30 Days #30 tab 12/22/19 [Rx Confirmed 01/25/20] multivitamin with folic acid [Thera] 1 tab PO DAILY 30 Days #30 tab 12/22/19 [Rx Confirmed 01/25/20] thiamine mononitrate (vit B1) [Vitamin B-1 (mononitrate)] 100 mg PO DAILY 30 Days #30 tab 12/22/19 [Rx Confirmed 01/25/20] diclofenac potassium 50 mg tablet 50 mg PO BID #60 tab 01/07/20 [Rx Confirmed 01/25/20] ziprasidone HCl 20 mg PO BID 01/14/20 [History Confirmed 01/25/20] Data NPU : 01/25/20 11:47 01/25/20 11:47 A&P Assessment and plan (1) Chronic post-traumatic stress disorder (PTSD): This is a 49-year-old white female with recent episode of drinking and a long history of mental health complaints with recent issues of bereavement who presents with recent relapse after a full month of success with Antabuse, and inability to get Antabuse at her pharmacy. 1. Continue current medication. 2. Will try to find an alternative source for the Antabuse generic. 3. Encourage individual, group and milieu therapy. 4. Continue every 15 minute checks for safety. 5. Recommend a high level sober living treatment which she is willing to commit but she continues to feel it is not a necessary part of her wellness. We will discharge to home. Status: Chronic Involuntary Hold Information 96 Hour Hold: 96 Hour Involuntary Admission: No 96 Hour Hold Ending Date: 12/19/19 96 Hour Hold Ending Time: 21:28 Attestations NPU Medical Necessity Statement*: Inpatient hospitalization is not medically necessary but could be clinically efficacious if they were desirous of that strategy. However she is currently feeling like the Antabuse was effective and the only problem now is that she can't get it. She is going to continue to attempt to find someone to fill that prescription. She is not on a 96 hour hold and has no credible lethality or need for 96 hour hold to be instituted. So we will allow her to discharge. Coding Level of Care Code Acute Print Buyer for Hannah [place] Diagnoses Chronic post-traumatic stress disorder (PTSD) F43.12
[2020-01-26 15:08] VITALS: BP 137/90; PULSE 72; RESP 16; TEMP 36.9; O2SAT 96
--- NOTE | 2020-01-26 15:35 | PM.NDC ---
Diagnoses at Discharge Discharge Diagnosis (1) Chronic post-traumatic stress disorder (PTSD): Status: Chronic Reason for Visit Reason for Visit: Reason For Visit: SI; ETOH Brief History: Yeimy Perry is a 49 year old female who presented to the emergency room with an elevated blood alcohol level, intoxicated and endorsing thoughts to kill herself. She was admitted to the neuro psych unit and reported what had occurred was she got the Antabuse that was prescribed at her previous admission and she took religiously for a month and had great success with it. Then [facility] had it on back order and she couldn't find it anywhere else and after a few days off of it there was a alliance party last gathering where someone brought alcohol, and she relapsed and was fearful that it would begin a long drawnout episode and she was fearful of the return of the Warnicke Korsakoff so she came to the hospital. Now that she has slept a little bit she feels like she is going to be able to manage it while she tried to find someplace that had the medication. We attempted to call a couple places while she was here and it was on back order those places well the name brand which might be available in some places it is not covered by Medicaid and is over $700. She denied all lethality or any other issues. She reports that she is living at the same place and has no changes in her psychosocial circumstances or history as compared to her December or October hospitalizations. Diagnoses at Discharge Discharge Diagnosis (1) Wernicke-Korsakoff syndrome (alcoholic): Status: Resolved Reason for Visit Reason for Visit: Reason For Visit: acute etoh intox;suicidal ideation;96 hour hold Brief History: History of Present Illness Yeimy Perry is a 49 year old with recurrent inpatient NPU admissions for alcohol abuse, reported lethality and alcohol intoxication or withdrawal. She presents today c/o drinking continuously since Sunday(today is Sunday) and having thoughts about hurting herself with a knife. Said she needed help with suicidal thoughts and her tremors that were starting, hence came to ER. Multiple episodes of nausea and vomiting+. No hematemesis. No kosta or BRPR. C/o chronic epigastric and RUQ pain ongoing since 4 months. Bedsise US performed in ER per verbal report shows liver cirrhosis. She is s/p cholecystectomy. Other notable labs upon admission are anion gap 25 (chronic), mild hyponatremia and hypochloremia, transaminitis AST 94, ALT 76, ALP 222 (chronic), T. bili 2.6, higher than at previous admissions. Tylenol level <5, alcohol level 413. No h/o fever. Abd/pelvis CT from 04/2019 showed normal liver. Unknown hepatitis serology status Providers/Reason for Consult Consulting Physican/Specialty*: Tushar Finley M.D. Psychiatry Reason for Consult*: Severe alcohol dependency with relapse; BAL .480. Patient verbalizes suicidal ideation. Requesting Physcian: Davina Hernandez MD Attending Physician: Domingo Hoffman Primary Care Provider: SOLEDAD Carlson Psych Consult HPI History of Present Illness Yeimy Perry is a 49 year old female with recurrent inpatient NPU admissions for alcohol abuse, reported suicidality and alcohol intoxication or withdrawal. She presents today c/o drinking continuously since Sunday(today is Sunday) and having thoughts about hurting herself with a knife. Said she needed help with suicidal thoughts and her tremors that were starting, hence came to ER. Hospital Course Hospital Course The patient is now launched into emotional lability and impulsiveness. We have called [facility] and the hospital package center supervisor and there is no one by her fianc?'s name who is known to have . The patient has subsequently become quite delusional of a paranoid nature and, at one point thought her son had , which is also not true as far as we are able to determine. Yeimy presented to the emergency room with an extremely elevated BAL and was transferred to the ICU. Dr. Finley did a consultation and transferred her to the neuro psych unit. At that time she was diagnosed with Warnicke Korsakoff syndrome with psychotic features and short-term memory difficulties. She was on a 96-hour hold and a 21-day hold was filed. However with the appropriate use of folic acid and thiamine along with her other medications her psychosis resolved and her memory improved dramatically. As with previous hospitalization she endorsed having it up if any and not needing inpatient hospitalization/rehab and endorsed a desire for outpatient drug and alcohol rehabilitation services. During the hospitalization she had routine laboratory studies which were within normal limits except for a few outliers. No heart murmur laboratory disturbances included in the brief history above. Additionally she had a general medical evaluation which was within normal limits revealing the delirium/Warnicke Korsakoff syndrome noted but otherwise no new acute processes. Discharge Summary At the time of discharge there was no lethality, the patient's mood was stabilized, anxiety was well managed, there is no psychosis reported or noted, the patient endorsed a plan to follow-up with the referrals that were provided. The patient endorsed a plan to avoid alcohol and all other drugs of abuse. Evaluation revealed no credible lethality and the patient had obtained the maximum benefit from an inpatient hospitalization so the individual was discharged. Hospital Course Hospital Course Yeimy presented to the emergency room intoxicated and having drank for the first time in some time due to a relapse related to a person drinking alcohol around and her being absent her Antabuse for the first time. The medication has been unavailable through the pharmacies which is created a blip and what had been a fairly sound solution. She came into the hospital fearing that she would spin out of control. She was admitted to the neuro psych unit with reports of suicidal thoughts. She quickly acclimated to the individual and milieu therapies. She had really wanted a sound location to get herself in the right mindset to deal with her addiction without the Antabuse that she seeks to find a pharmacy that is stocking it. During the hospitalization she had routine laboratory studies which were within normal limits except for a few outliers. Additionally she had a general medical evaluation which was within normal limits and revealed no new acute processes outside of those that were identified in the emergency room. Discharge Summary At the time of discharge she denied any lethality, she was absent psychosis, her mood and anxiety were well managed and she endorsed a plan to avoid all drugs of abuse and to follow-up with the recommended outpatient services. She was evaluated and deemed to be absent lethality and had received the maximum benefit from an inpatient hospitalization, so she was discharged. Involuntary Hold Information 96 Hour Hold: 96 Hour Involuntary Admission: No 96 Hour Hold Ending Date: 12/19/19 96 Hour Hold Ending Time: 21:28 Mental Status Exam MSE Comments: This is an obese white female with adequate dress, grooming and eye contact. No abnormal movements except for mild psychomotor retardation. Cooperative with exam and in no acute distress. Speech was of slightly decreased rate and volume. Mood described as much better, Affect is congruent. Thought process organized. Patient denied any suicidal or homicidal ideation , there were no delusions reported are noted, she denied any auditory or visual hallucinations. Attention and concentration were intact and memory appeared reliable but none were formally tested. She is alert and oriented x 3. Insight and judgment are improving. Discharge Data Vitals: Last Vital Signs Temp 98.5 F 01/26/20 15:08 Pulse 72 01/26/20 15:08 Resp 16 01/26/20 15:08 BP 137/90 01/26/20 15:08 Pulse Ox 96 01/26/20 15:08 Discharge Plan Discharge Patient Disposition: Home, Self-Care Condition: Stable Prescriptions: Continued ferrous sulfate 325 mg (65 mg iron) tablet 325 mg PO BID Qty: 60 RF: 5 diclofenac potassium 50 mg tablet 50 mg PO BID Qty: 60 RF: 2 folic acid 1 mg Tablet 1 mg PO DAILY 30 Days Qty: 30 RF: 1 thiamine mononitrate (vit B1) [Vitamin B-1 (mononitrate)] 100 mg Tablet 100 mg PO DAILY 30 Days Qty: 30 RF: 1 Thera 400 mcg Tablet 1 tab PO DAILY 30 Days Qty: 30 RF: 1 disulfiram [Antabuse] 250 mg tablet 250 mg PO BID Qty: 60 RF: 1 No Action ziprasidone HCl [Geodon] 40 mg capsule 40 mg PO .qhs Qty: 30 RF: 0 Discharge Orders: Discharge Order (Routine); Ordered 01/26/20 Ordered By: Antonio Kwong Referrals: Eric Hartman LCSW [Referring] - 02/03/20 11:00 am Rosa Win APRN [Nurse Practitioner] - 01/29/20 10:30 am Anahi Schulz FNP [Primary Care Provider] - Discharge Diet: Regular Discharge Activity: Resume usual activity Patient Instructions: Alcohol Abuse Activity Restrictions/Additional Instructions: When possible, consider AA meetings and maybe a grief support group... Grief support.. Sessions are offered for no cost at 12:oo noon at [facility] ([facility]), [address] [place] [address]. Contact Andres Carbajal at [phone] for more information...[email or web address] Discharge Date/Time: 01/26/20 15:15 Discharge Attestations NPU Time Spent in Discharge Care*: less than 30 min Specific Discharge Activities: Specific discharge activities: educating patient, discussing with residential case manager/social workers/dc planners, documenting/other paperwork and evaluating patient/reviewing data Coding Level of Care Code Acute Art Coordinator for Chg Fwd Diagnoses Chronic post-traumatic stress disorder (PTSD) F43.12
== END 2020-01-26 15:15 | disposition home or self-care (01) ==
LOC: ER 12:35 → NP 12:58
PROVIDERS: Admitting Provider Psychiatry & Neurology Psychiatry; Emergency Provider Family Medicine; Family Provider Nurse Practitioner; PCP Nurse Practitioner; Visit Provider Psychiatry & Neurology Psychiatry
DX: F43.12 Post-traumatic stress disorder, chronic (principal)
CPT/HCPCS: 12345; 36415; 80053; 80306; 80307; 81003; 85025; 99284; 99285; G0378

== ENCOUNTER → 2020-01-29 08:33 | Outpatient (BNVA) | payer MEDICAID, SELFPAY | PROVIDERS: Family Provider Nurse Practitioner; PCP Nurse Practitioner; Visit Provider Nurse Practitioner Psychiatric/Mental Health | DX: F43.12 Post-traumatic stress disorder, chronic (principal); F31.60 Bipolar disorder, current episode mixed, unspecified; F10.20 Alcohol dependence, uncomplicated | CPT/HCPCS: 99212 ==

== ENCOUNTER → 2020-02-03 11:06 | Outpatient (BNVA) | payer MEDICAID, SELFPAY | PROVIDERS: Family Provider Nurse Practitioner; PCP Nurse Practitioner; Visit Provider Social Worker Clinical | DX: F43.12 Post-traumatic stress disorder, chronic (principal); F31.60 Bipolar disorder, current episode mixed, unspecified | CPT/HCPCS: 90832 ==

== ENCOUNTER → 2020-02-05 07:55 | Outpatient (BNVA) | payer MEDICAID, SELFPAY | PROVIDERS: Family Provider Nurse Practitioner; PCP Nurse Practitioner; Visit Provider Nurse Practitioner Psychiatric/Mental Health | DX: F43.12 Post-traumatic stress disorder, chronic (principal); F31.60 Bipolar disorder, current episode mixed, unspecified; F10.20 Alcohol dependence, uncomplicated | CPT/HCPCS: 99212 ==

== ENCOUNTER → 2020-02-19 07:57 | Outpatient (BNVA) | payer MEDICAID, SELFPAY | PROVIDERS: Family Provider Nurse Practitioner; PCP Nurse Practitioner; Visit Provider Nurse Practitioner Psychiatric/Mental Health | DX: F43.12 Post-traumatic stress disorder, chronic (principal); F31.60 Bipolar disorder, current episode mixed, unspecified; F10.20 Alcohol dependence, uncomplicated | CPT/HCPCS: 90832; 99213 ==

== ENCOUNTER → 2020-02-23 08:31 | Outpatient (BNVA) | payer MEDICAID, SELFPAY | PROVIDERS: Family Provider Nurse Practitioner; PCP Nurse Practitioner; Visit Provider Social Worker Clinical | DX: F31.4 Bipolar disorder, current episode depressed, severe, without psychotic features (principal); F43.12 Post-traumatic stress disorder, chronic; F10.20 Alcohol dependence, uncomplicated | CPT/HCPCS: 90791 ==

== ENCOUNTER 2020-02-25 23:43 | Emergency (ER) | payer MEDICAID, SELFPAY ==
[2020-02-25 23:44] VITALS: BP 135/91; PULSE 96; RESP 18; TEMP 36.7; O2SAT 98; BMI 39.5
--- NOTE | 2020-02-25 23:49 | PC.NURSE ---
PATIENT STATES SHE HAS BEEN HAVING LOWER ABDOMINAL PAIN AND BLEEDING SINCE THIS MORNING. PATIENT STATES SHE HAS HAD AN ECTOPIC AND A TUBAL LIGATION IN 2009.
[2020-02-25 23:52] VITALS: BP 125/94; PULSE 82; RESP 18; O2SAT 98
[2020-02-25 23:57] VITALS: BP 125/94; O2SAT 96
[2020-02-26] VITALS (18 sets, daily range): BP systolic 119–137; BP diastolic 74–96; RESP 16; O2SAT 95–100
--- NOTE | 2020-02-26 00:05 | ED_ITS ---
HPI - Abdominal Pain General: Chief Complaint: Abdominal Pain Stated Complaint: VAG BLEEDING Time Seen by Provider: 02/26/20 00:02 History of Present Illness: HPI narrative: Patient is a 49-year-old female who comes to the ED via ambulance with abdominal pain and vaginal bleeding. Patient says bleeding and pain started today. Patient states she had not had period in about three months and was thinking maybe she was starting menopause. Patient says she has been sexually active, but has had a tubal ligation. pain is all throughout the abdomen and has waves of intense cramping. She describes the bleeding as heavy and bright red blood. Associated Symptoms: Reports nausea; Denies chills, constipation, diarrhea, dysuria, fever(s), hematochezia, hematuria and vomiting Related Data: Date of Last Menstrual Period: 12/21/19 Review of Systems Const: Denies: fever, chills or fatigue Eyes: Denies: change in vision or eye discomfort ENMT: Denies: throat pain, painful swallowing, nasal discharge or nasal congestion Card: Denies: chest pain, palpitations, edema, swelling of feet/ankles, shortness of breath on exertion or shortness of breath when lying down Resp: Denies: shortness of breath, productive cough or non-productive cough GI: Reports: abdominal pain and nausea; Denies: vomiting, diarrhea, constipation or blood in stool : Reports: vaginal bleeding and pelvic pain; Denies: flank pain, painful urination or blood in urine Musc: Denies: neck pain, back pain or extremity swelling Skin/Breast: Denies: rash or new lesion Neuro: Denies: headache, numbness in extremities or weakness in extremities PFS ED PFSH: Medical History Alcohol intoxication Arthritis of right knee Dehydration Depressive disorder Hx of cholecystitis Suicidal behavior without attempted self-injury in the past Suicidal thoughts in the past Surgical History History of Hx of gastric bypass Hx of hernia repair Hx of tubal ligation Hx of unilateral salpingectomy Right Family History Other Diabetes Heart disease Social History Smoking and tobacco status: never smoked Alcohol intake: former Year of sobriety/quit date alcohol: 2019 Former alcohol use details: stopped drinking 12/13/2019 Desire information about alcohol rehabilitation?: No Counseling given: No History of recent travel: No Current gender identity: Female Female Reproductive History: Date of last menstrual period: 12/21/19 Physical Exam Narrative: EXAM NARRATIVE: Patient is a 49-year-old female who appears to be in some pain and discomfort when I entered the room. She kept crying out in pain sporadically during my history and physical exam. Const: COMMON NORMALS: oriented x3 HENMT: COMMON NORMALS: normocephalic HEAD & SCALP: normocephalic MOUTH: oral and palatal mucosa normal THROAT: posterior oropharynx normal and uvula midline Eye: COMMON NORMALS: PERRL PUPIL: Yes PERRL Neck/C-Spine: COMMON NORMALS: supple GENERAL: Yes normal visual inspection Resp: COMMON NORMALS: normal respiratory effort, no retractions, no use of accessory muscles and clear to auscultation bilaterally AUSCULTATION: clear to auscultation bilaterally Cardio: COMMON NORMALS: regular rate, regular rhythm, S1 normal heart sound, S2 normal heart sound, no gallops, no clicks, no murmurs and peripheral pulses 2+ throughout RATE: regular rate RHYTHM: regular rhythm HEART SOUNDS: S1 normal and S2 normal PERIPHERAL PULSES: pulses 2+ throughout GI: COMMON NORMALS: normal to inspection, nondistended, normoactive bowel sounds, soft to palpation and no masses PALPATION: Yes soft and Yes tender (moderate tenderness throughout abdomen) : COMMON NORMALS: Yes no CVA tenderness BLADDER/KIDNEY EXAM: Yes no CVA tenderness Back/Pelvis: COMMON NORMALS: no CVA tenderness Extremity: COMMON NORMALS: normal to inspection and no pedal edema Neuro: COMMON NORMALS: oriented x3 GAIT: Yes normal gait Skin: COMMON NORMALS: no rashes or lesions noted GENERAL SKIN EXAM: no rashes or lesions noted and dry skin Course Vital Signs: Vital signs: Vital Signs Temperature 98.1 F 02/25/20 23:44 Pulse Rate 82 02/25/20 23:52 Respiratory Rate 16 02/26/20 02:14 Blood Pressure 119/80 02/26/20 02:30 Pulse Oximetry 100 02/26/20 02:30 MDM - Abdominal Pain MDM Narrative: Medical decision making narrative: Patient is a 49-year-old female who comes to the ED with vaginal bleeding and pelvic cramping. CBC, CMP, UA were unremarkable. hCG quant was 0.50. Pelvic ultrasound was performed and showed ovaries were normal no torsion seen. Uterus was full of blood. Patient diagnosed with this menorrhea and menorrhagia. Patient's pain greatly reduced after IV fluids and morphine. Patient was discharged and told to follow-up with PCP in 7 days for reevaluation. patient told to take ibuprofen for the abdominal pain and cramping. Patient was told to return to ED for reevaluation, if bleeding through 2 heavy pads an hour. Patient understood and agreed with plan. Lab Data: Attestation: I reviewed the patient's lab results. Labs: Lab Results 02/26/20 02/26/20 02/26/20 Range/Units 00:42 00:57 00:57 WBC 5.7 (4.0-10.0) 10^3/ uL RBC 4.45 (4.1-5.3) 10^6/u L Hgb 13.1 (11.5-15.3) g/dL Hct 41.3 (37.0-47.0) % MCV 92.8 (81-99) fL MCH 29.4 (28.0-34.0) pg MCHC 31.7 (30.0-36.0) g/dL RDW 16.0 H (12.1-15.1) % Plt Count 201 (130-400) 10^3/c mm MPV 9.8 (7.4-10.4) fL Neut % (Auto) 66.8 % Lymph % (Auto) 25.8 % [place] % (Auto) 4.9 % Eos % (Auto) 1.4 % Baso % (Auto) 0.4 % Neut # (Auto) 3.8 (1.8-7.7) 10^3/u L Lymph # (Auto) 1.5 (0.8-4.8) 10^3/u L [place] # (Auto) 0.3 (0.2-0.9) 10^3/u L Eos # (Auto) 0.1 (0.0-0.8) 10^3/u L Baso # (Auto) 0.0 (0.0-0.1) 10^3/u L Nucleated RBC % (a uto) 0 % Nucleated RBCs # 0.0 /100WBC Sodium 144 (136-145) mmol/L Potassium 3.7 (3.5-5.1) mmol/L Chloride 104 (98-107) mmol/L Carbon Dioxide 24 (22-29) mmol/L Anion Gap 19.7 H (5-19) BUN 8 (6-20) mg/dL Creatinine 0.6 (0.5-0.9) mg/dL GFR Calculation 107.2 (90-130) mL/min Glucose 94 (65-115) mg/dL Calculated Osmolal ity 294 (285-295) mOsm/k g Calcium 8.2 L (8.5-10.5) mg/dL Total Bilirubin 0.4 (0.15-1.2) mg/dL AST 30 (0-32) U/L ALT 21 (0-33) U/L Alkaline Phosphata se 70 (35-105) IU/L Total Protein 7.3 (6.6-8.7) g/dL Albumin 4.2 (3.5-5.2) g/dL Globulin 3.1 (1.3-4.6) g/dL Ser , Isidro i-Qnt 0.50 mIU/mL Urine Color Yellow (Yellow) Urine Appearance Sl hazy (CLEAR) Urine pH 5 (5-7) Ur Specific Gravit y 1.025 (1.005-1.030) Urine Protein Neg (Negative) Urine Glucose (UA) Norm (Normal) Urine Ketones Negative (Negative) Urine Blood 3+ H (Negative) Urine Nitrate Negative (Negative) Urine Bilirubin Neg (NEGATIVE) Urine Urobilinogen Norm (Negative) mg/dL Ur Leukocyte Marlys ase Negative (Negative) Urine RBC 5-10 H (0-2) /hpf Urine WBC 0-4 H (0-5) /hpf Ur Squamous Epith Cells 0-4 H (0-5) Urine Bacteria 1+ H (NONE) Blood Type Rho(D) Type Antibody Screen 02/26/20 Range/Units 01:38 WBC (4.0-10.0) 10^3/ uL RBC (4.1-5.3) 10^6/u L Hgb (11.5-15.3) g/dL Hct (37.0-47.0) % MCV (81-99) fL MCH (28.0-34.0) pg MCHC (30.0-36.0) g/dL RDW (12.1-15.1) % Plt Count (130-400) 10^3/c mm MPV (7.4-10.4) fL Neut % (Auto) % Lymph % (Auto) % [place] % (Auto) % Eos % (Auto) % Baso % (Auto) % Neut # (Auto) (1.8-7.7) 10^3/u L Lymph # (Auto) (0.8-4.8) 10^3/u L [place] # (Auto) (0.2-0.9) 10^3/u L Eos # (Auto) (0.0-0.8) 10^3/u L Baso # (Auto) (0.0-0.1) 10^3/u L Nucleated RBC % (a uto) % Nucleated RBCs # /100WBC Sodium (136-145) mmol/L Potassium (3.5-5.1) mmol/L Chloride (98-107) mmol/L Carbon Dioxide (22-29) mmol/L Anion Gap (5-19) BUN (6-20) mg/dL Creatinine (0.5-0.9) mg/dL GFR Calculation (90-130) mL/min Glucose (65-115) mg/dL Calculated Osmolal ity (285-295) mOsm/k g Calcium (8.5-10.5) mg/dL Total Bilirubin (0.15-1.2) mg/dL AST (0-32) U/L ALT (0-33) U/L Alkaline Phosphata se (35-105) IU/L Total Protein (6.6-8.7) g/dL Albumin (3.5-5.2) g/dL Globulin (1.3-4.6) g/dL Ser , Isidro i-Qnt mIU/mL Urine Color (Yellow) Urine Appearance (CLEAR) Urine pH (5-7) Ur Specific Gravit y (1.005-1.030) Urine Protein (Negative) Urine Glucose (UA) (Normal) Urine Ketones (Negative) Urine Blood (Negative) Urine Nitrate (Negative) Urine Bilirubin (NEGATIVE) Urine Urobilinogen (Negative) mg/dL Ur Leukocyte Marlys ase (Negative) Urine RBC (0-2) /hpf Urine WBC (0-5) /hpf Ur Squamous Epith Cells (0-5) Urine Bacteria (NONE) Blood Type A Positive Rho(D) Type Positive Antibody Screen Negative Imaging Data ^: US: Attestation: I personally reviewed and interpreted this imaging study as follows: Radiologist's impression: Pelvic US--prelim report showed no torsion and ovaries were normal. Free fluid in the uterus Discharge Plan Discharge Patient Disposition: Home, Self-Care Clinical Impression: Dysmenorrhea Menorrhagia Qualifiers: Menorrhagia type: premenopausal Qualified Code(s): N92.4 - Excessive bleeding in the premenopausal period Condition: Stable Prescriptions: No Action ferrous sulfate 325 mg (65 mg iron) tablet 325 mg PO BID Qty: 60 RF: 5 diclofenac potassium 50 mg tablet 50 mg PO BID Qty: 60 RF: 2 ziprasidone HCl [Geodon] 40 mg capsule 40 mg PO .qhs Qty: 30 RF: 0 folic acid 1 mg Tablet 1 mg PO DAILY 30 Days Qty: 30 RF: 1 thiamine mononitrate (vit B1) [Vitamin B-1 (mononitrate)] 100 mg Tablet 100 mg PO DAILY 30 Days Qty: 30 RF: 1 Thera 400 mcg Tablet 1 tab PO DAILY 30 Days Qty: 30 RF: 1 disulfiram [Antabuse] 250 mg tablet 250 mg PO BID Qty: 60 RF: 1 Discharge Orders: Discharge Order (Routine); Ordered 02/26/20 Ordered By: Bossman Flores Referrals: Anahi Schulz FNP [Primary Care Provider] - Discharge Diet: Regular Discharge Activity: Resume usual activity Patient Instructions: Dysmenorrhea (ED), Menorrhagia (ED) Activity Restrictions/Additional Instructions: Follow-up with your PCP in 5 to 7 days for reevaluation. Take [id number] ibuprofen or abdominal pain and cramping. Drink plenty of fluids and stay hydrated. You can return to the ED if bleeding through 2 heavy pads in an hour. Coding Level of Care Code ED Asbestos Removal Supervisor for Hannah Fwashley Exam Comprehensive
--- NOTE | 2020-02-26 00:09 | US_ITS ---
WS: [id number] PELVIC ULTRASOUND REASON FOR VISIT: Pain TECHNIQUE: Grayscale and Doppler transabdominal ultrasound of the pelvis. FINDINGS: Uterus measures 10.6 cm x 7.5 cm x 6.2 cm, right ovary measures 3.6 cm x 2.2 cm x 3.4 cm, and left ov ambrosio measures 3.4 cm x 2.7 cm x 2.9 cm. The uterus appears to be full of clots and fibula. Slightly enlarged. US/US pelvic complete* [id number] IMPRESSION: Enlarged uterus with multiple clots and blood in the uterus. No adnexal masses.
[2020-02-26] MEDS: ondansetron 2 mg/ML SDV 2 mL 4 MG IVP (00:57)
[2020-02-26] MEDS: morphine 4 mg/mL SDV 1 mL IVP ×2 (00:57→02:14)
[2020-02-26] MEDS: sodium chloride 0.9% 1,000 ML 999 ML IV (01:01)
[2020-02-26 01:03] LABS: Bacteria Urine 1+; Bilirubin Urine Neg (NEGATIVE); Blood Urine 3+ (Negative); Glucose Urine UA Norm (Normal); Ketones Urine Negative (Negative); Leukocyte Esterase Urine Negative (Negative); Nitrate Urine Negative (Negative); Protein Urine Neg (Negative); Specific Gravity, Urine 1.025 (1.005-1.030); Squamous Epithelial Cell Urine 0-4 (0-5); Urine Appearance SL Hazy (CLEAR); Urine Color Yellow (Yellow); Urobilinogen Urine Norm (Negative); WBC Urine 0-4 /hpf (0-5); pH Urine 5 (5-7)
[2020-02-26 01:16] LABS: Basophils % 0.4 %; Eosinophils # 0.1 10^3/uL (0.0-0.8); Eosinophils % 1.4 %; Hematocrit 41.3 % (37.0-47.0); Hemoglobin 13.1 g/dL (11.5-15.3); Lymphocytes # 1.5 10^3/uL (0.8-4.8); Lymphocytes % 25.8 %; Mean Corpuscular HGB Conc 31.7 g/dL (30.0-36.0); Mean Corpuscular Hemoglobin 29.4 pg (28.0-34.0); Mean Corpuscular Volume 92.8 fL (81-99); Mean Platelet Volume 9.8 fL (7.4-10.4); Monocytes # 0.3 10^3/uL (0.2-0.9); Monocytes % 4.9 %; Neutrophils # 3.8 10^3/uL (1.8-7.7); Neutrophils % 66.8 %; Nucleated Red Blood Cells % 0 %; Platelet Count 201 10^3/cmm (130-400); Red Blood Count 4.45 10^6/uL (4.1-5.3); White Blood Count 5.7 10^3/uL (4.0-10.0)
[2020-02-26 01:54] LABS: Alanine Aminotransferase 21 U/L (0-33); Albumin Level 4.2 g/dL (3.5-5.2); Alkaline Phosphatase 70 IU/L (35-105); Anion Gap 19.7 (5-19); Aspartate Amino Transferase 30 U/L (0-32); Blood Urea Nitrogen 8 mg/dL (6-20); Calcium 8.2 mg/dL (8.5-10.5); Carbon Dioxide 24 mmol/L (22-29); Chloride 104 mmol/L (98-107); Globulin 3.1 g/dL (1.3-4.6); Glomerular Filtration Rate 107.2 mL/min (90-130); Glucose 94 mg/dL (65-115); Osmolality Calculated 294 mOsm/kg (285-295); Potassium 3.7 mmol/L (3.5-5.1); Sodium 144 mmol/L (136-145); Total Bilirubin 0.4 mg/dL (0.15-1.2); Total Protein 7.3 g/dL (6.6-8.7)
== END 2020-02-26 03:13 | disposition home or self-care (01) ==
PROVIDERS: Emergency Provider Physician Assistant; PCP Nurse Practitioner
DX: N94.6 Dysmenorrhea, unspecified (principal); N92.4 Excessive bleeding in the premenopausal period
CPT/HCPCS: 12345; 36415; 76856; 80053; 81001; 84702; 85025; 86850; 86900; 87040; 96361; 96374; 96375; 96376; 99283; 99284; J2270; J2405; J7030

== ENCOUNTER 2020-03-02 10:14 | Emergency (ER) | payer MEDICAID, SELFPAY | END 2020-03-02 18:03 | disposition admitted as inpatient to this hospital (09) | LOC: ER 04-01 19:29 | PROVIDERS: Emergency Provider Family Medicine | DX: R45.851 Suicidal ideations (principal); F31.9 Bipolar disorder, unspecified; F10.229 Alcohol dependence with intoxication, unspecified; E87.2 Acidosis | CPT/HCPCS: 71045; 74177; 93005; 96375; C9113; J1630; J2060; J2270; J2405; J7030; Q9967 ==

== ENCOUNTER 2020-03-02 10:14 | Inpatient (IN) | payer MEDICAID, SELFPAY ==
[2020-03-02] VITALS (11 sets, daily range): BP systolic 125–167; BP diastolic 78–109; PULSE 80–92; RESP 15–20; TEMP 36.7–37; O2SAT 92–98; BMI 39.5
--- NOTE | 2020-03-02 10:33 | ED_ITS ---
HPI - Psych General: Chief Complaint: Psychiatric Symptoms Stated Complaint: MHE/SI Time Seen by Provider: 03/02/20 10:33 History of Present Illness: HPI Narrative: 49-year-old female presents with complaints of abdominal pain localizes to the epigastrium. For the last week she has been drinking aggressively over 1/5 of hard alcohol per day she states her last drink was yesterday morning she still smells strongly of alcohol. She has a history of pancreatitis related to alcoholism she has had nausea and vomiting although she is just dry heaving now she has been vomiting so much she cannot recall the last time she actually ate denies any coffee-ground emesis or hematemesis but she has had 1 melanic stool she described as dark and tarry she denies fever she has had some shortness of breath but no cough and no productive cough. She has several cuts in the back of her left hand which she states are from a puppy tells me immunizations are up-to-date she denies any other symptoms. She denies any UTI symptoms denies any hematuria denies any chest pa in or tightness. MD complaint: suicidal ideation and feels depressed Onset (ago): day(s) Duration: constant Context: recent alcohol abuse Associated psychiatric symptoms: none Associated symptoms: Reports no associated symptoms Treatments prior to arrival: none If self harm: admits thoughts of self harm and has plan Review of Systems Const: Denies: fever(s), chills, body aches, change in appetite, fatigue or malaise ENMT: Denies: throat pain, ear or mastoid pain, nasal discharge or nasal congestion Card: Denies: chest pain, edema, dyspnea on exertion or orthopnea Resp: Denies: dyspnea, productive cough or non-productive cough GI: Reports: abdominal pain, nausea, vomiting and melena; Denies: hematemesis, coffee ground emesis, diarrhea, constipation, bloating or hematochezia : Denies: flank pain, difficulty voiding, dysuria, urinary frequency or urinary urgency Skin/Breast: Denies: rash or pruritus PFSH ED PFSH: Medical History (Updated 03/03/20 @ 06:15 by Aldo Jenkins DO) Alcohol dependence Has been prescribed antabuse Arthritis of right knee Bipolar disorder Has not tolerated increasing Geodon dosing Chronic post-traumatic stress disorder (PTSD) Depressive disorder Hx of cholecystitis Iron deficiency anemia Recurrent pancreatitis Suicidal thoughts in the past Surgical History History of Hx of gastric bypass Hx of hernia repair Hx of tubal ligation Hx of unilateral salpingectomy Right Family History Other Diabetes Heart disease Social History (Updated 03/02/20 @ 20:52 by Genna Nowak MD) Smoking and tobacco status: never smoked Alcohol intake: current History of recent travel: No Current gender identity: Female Female Reproductive History: Date of last menstrual period: 12/21/19 Physical Exam Const: COMMON NORMALS: no acute distress GENERAL APPEARANCE: cooperative and comfortable ORIENTATION/CONSCIOUSNESS: Yes awake, Yes oriented to person, Yes oriented to place and Yes oriented to time HENMT: COMMON NORMALS: normocephalic, atraumatic, hearing grossly normal bilaterally, external ears normal, EAC's normal, TM's normal bilaterally, Normal nasal mucous membranes and turbinates present, moist oral mucous membranes and oropharynx normal HEAD & SCALP: normocephalic and atraumatic NOSE: Normal nasal mucous membranes and turbinates present EXTERNAL EAR: Yes external ears normal EXTERNAL AUDITORY CANAL: EAC's normal TYMPANIC MEMBRANE: TM's normal bilaterally Eye: COMMON NORMALS: Equal, round and reactive pupils present, EOMs intact bilaterally, conjunctivae normal and no scleral icterus CONJUNCTIVA: Yes conj unctivae normal PUPIL: Yes Equal, round and reactive pupils present Neck/C-Spine: COMMON NORMALS: full ROM, no lymphadenopathy, supple and no JVD Lymph: LYMPHATIC: no lymphadenopathy noted and no lymphedema noted Resp: COMMON NORMALS: normal respiratory effort, No retractions, No use of accessory muscles and clear to auscultation bilaterally AUSCULTATION: clear to auscultation bilaterally Cardio: COMMON NORMALS: no JVD, regular rate, regular rhythm and No murmurs present (Cardio) RATE: regular rate RHYTHM: regular rhythm GI: COMMON NORMALS: Soft to palpation and No hepatosplenomegaly present AUSCULTATION: Yes normoactive bowel sounds PALPATION: Yes Soft to palpation, Yes Tenderness to palpation present (GI), No Guarding due to palpation present (GI) and Yes No hepatosplenomegaly present Extremity: COMMON NORMALS: normal to inspection, capillary refill normal, no clubbing, cyanosis or edema, no calf tenderness and no pedal edema Neuro: SENSORIUM/ORIENTATION: Yes oriented to person, Yes oriented to place and Yes oriented to time Skin: COMMON NORMALS: no rashes or lesions noted GENERAL SKIN EXAM: no rashes or lesions noted MDM - Psych MDM Narrative: Medical decision making narrative: Despite 3 L of fluid her anion gap is persisting. As well as her nausea and vomiting. We will go ahead and admit her to the medical floor for fluids and nausea medications for persistent nausea and vomiting. Additionally 96-hour hold is been filled out based on the fact that she reported suicidal ideation with a specific plan. Her lactic acid is also elevated but I cannot find a source of infection suspect it is due to her drinking. Discussed with Dr. Lima's will admit the patient to the medical floor. Lab Data: Labs: Lab Results 03/02/20 03/02/20 03/02/20 Range/Units 10:45 10:45 11:10 WBC 5.8 (4.0-10.0) 10^3/ uL RBC 4.24 (4.1-5.3) 10^6/u L Hgb 12.4 (11.5-15.3) g/dL Hct 38.7 (37.0-47.0) % MCV 91.3 (81-99) fL MCH 29.2 (28.0-34.0) pg MCHC 32.0 (30.0-36.0) g/dL RDW 16.1 H (12.1-15.1) % Plt Count 114 L (130-400) 10^3/c mm MPV 9.2 (7.4-10.4) fL Neut % (Auto) 77.2 % Lymph % (Auto) 13.2 % [place] % (Auto) 8.8 % Eos % (Auto) 0.0 % Baso % (Auto) 0.3 % Neut # (Auto) 4.5 (1.8-7.7) 10^3/u L Lymph # (Auto) 0.8 (0.8-4.8) 10^3/u L [place] # (Auto) 0.5 (0.2-0.9) 10^3/u L Eos # (Auto) 0.0 (0.0-0.8) 10^3/u L Baso # (Auto) 0.0 (0.0-0.1) 10^3/u L Nucleated RBC % (a uto) 0 % Nucleated RBCs # 0.0 /100WBC Sodium (136-145) mmol/L Potassium (3.5-5.1) mmol/L Chloride (98-107) mmol/L Carbon Dioxide (22-29) mmol/L Anion Gap (5-19) BUN (6-20) mg/dL Creatinine (0.5-0.9) mg/dL GFR Calculation (90-130) mL/min Glucose (65-115) mg/dL Calculated Osmolal ity (285-295) mOsm/k g Lactate (0.5-2.2) mmol/L Calcium (8.5-10.5) mg/dL Total Bilirubin (0.15-1.2) mg/dL AST (0-32) U/L ALT (0-33) U/L Alkaline Phosphata se (35-105) IU/L Total Protein (6.6-8.7) g/dL Albumin (3.5-5.2) g/dL Globulin (1.3-4.6) g/dL Lipase (13-60) U/L Urine Color Yellow (Yellow) Urine Appearance Sl hazy (CLEAR) Urine pH 5.0 (5-7) Ur Specific Gravit y 1.020 (1.005-1.030) Urine Protein Trace (Negative) Urine Glucose (UA) Norm (Normal) Urine Ketones 1+ H (Negative) Urine Blood 3+ H (Negative) Urine Nitrate Negative (Negative) Urine Bilirubin Neg (NEGATIVE) Urine Urobilinogen 1 H (Negative) mg/dL Ur Leukocyte Marlys ase Negative (Negative) Urine RBC 5-10 H (0-2) /hpf Urine WBC None (0-5) /hpf Ur Squamous Epith Cells 5-10 H (0-5) Urine Bacteria 1+ H (NONE) Urine Mucus 1+ Salicylates (3-10) mg/dL Urine Opiates Scre en Negative (Negative) ng/mL Acetaminophen (10-30) ug/mL Ur Barbiturates Sc reen Negative (Negative) ng/mL Ur Phencyclidine S crn Negative (Negative) ng/mL Ur Amphetamines Sc reen Negative (Negative) ng/mL U Benzodiazepines Scrn Negative (Negative) ng/mL Urine Cocaine Scre en Negative (Negative) ng/mL U Marijuana (THC) Screen Negative (Negative) ng/mL Ethyl Alcohol (0-10) mg/dL 03/02/20 03/02/20 03/02/20 Range/Units 11:10 11:10 11:10 WBC (4.0-10.0) 10^3/ uL RBC (4.1-5.3) 10^6/u L Hgb (11.5-15.3) g/dL Hct (37.0-47.0) % MCV (81-99) fL MCH (28.0-34.0) pg MCHC (30.0-36.0) g/dL RDW (12.1-15.1) % Plt Count (130-400) 10^3/c mm MPV (7.4-10.4) fL Neut % (Auto) % Lymph % (Auto) % [place] % (Auto) % Eos % (Auto) % Baso % (Auto) % Neut # (Auto) (1.8-7.7) 10^3/u L Lymph # (Auto) (0.8-4.8) 10^3/u L [place] # (Auto) (0.2-0.9) 10^3/u L Eos # (Auto) (0.0-0.8) 10^3/u L Baso # (Auto) (0.0-0.1) 10^3/u L Nucleated RBC % (a uto) % Nucleated RBCs # /100WBC Sodium 142 (136-145) mmol/L Potassium 4.0 (3.5-5.1) mmol/L Chloride 99 (98-107) mmol/L Carbon Dioxide 23 (22-29) mmol/L Anion Gap 24.0 H (5-19) BUN 13 (6-20) mg/dL Creatinine 0.6 (0.5-0.9) mg/dL GFR Calculation 107.2 (90-130) mL/min Glucose 105 (65-115) mg/dL Calculated Osmolal ity 291 (285-295) mOsm/k g Lactate 4.4 H* (0.5-2.2) mmol/L Calcium 7.9 L (8.5-10.5) mg/dL Total Bilirubin 1.1 (0.15-1.2) mg/dL AST 33 H (0-32) U/L ALT 27 (0-33) U/L Alkaline Phosphata se 122 H (35-105) IU/L Total Protein 6.3 L (6.6-8.7) g/dL Albumin 3.9 (3.5-5.2) g/dL Globulin 2.4 (1.3-4.6) g/dL Lipase 12 L (13-60) U/L Urine Color (Yellow) Urine Appearance (CLEAR) Urine pH (5-7) Ur Specific Gravit y (1.005-1.030) Urine Protein (Negative) Urine Glucose (UA) (Normal) Urine Ketones (Negative) Urine Blood (Negative) Urine Nitrate (Negative) Urine Bilirubin (NEGATIVE) Urine Urobilinogen (Negative) mg/dL Ur Leukocyte Marlys ase (Negative) Urine RBC (0-2) /hpf Urine WBC (0-5) /hpf Ur Squamous Epith Cells (0-5) Urine Bacteria (NONE) Urine Mucus Salicylates < 0.3 L (3-10) mg/dL Urine Opiates Scre en (Negative) ng/mL Acetaminophen < 5.0 L (10-30) ug/mL Ur Barbiturates Sc reen (Negative) ng/mL Ur Phencyclidine S crn (Negative) ng/mL Ur Amphetamines Sc reen (Negative) ng/mL U Benzodiazepines Scrn (Negative) ng/mL Urine Cocaine Scre en (Negative) ng/mL U Marijuana (THC) Screen (Negative) ng/mL Ethyl Alcohol 138 H (0-10) mg/dL 03/02/20 Range/Units 11:10 WBC (4.0-10.0) 10^3/ uL RBC (4.1-5.3) 10^6/u L Hgb (11.5-15.3) g/dL Hct (37.0-47.0) % MCV (81-99) fL MCH (28.0-34.0) pg MCHC (30.0-36.0) g/dL RDW (12.1-15.1) % Plt Count (130-400) 10^3/c mm MPV (7.4-10.4) fL Neut % (Auto) % Lymph % (Auto) % [place] % (Auto) % Eos % (Auto) % Baso % (Auto) % Neut # (Auto) (1.8-7.7) 10^3/u L Lymph # (Auto) (0.8-4.8) 10^3/u L [place] # (Auto) (0.2-0.9) 10^3/u L Eos # (Auto) (0.0-0.8) 10^3/u L Baso # (Auto) (0.0-0.1) 10^3/u L Nucleated RBC % (a uto) % Nucleated RBCs # /100WBC Sodium 139 (136-145) mmol/L Potassium 3.9 (3.5-5.1) mmol/L Chloride 99 (98-107) mmol/L Carbon Dioxide 20 L (22-29) mmol/L Anion Gap 23.9 H (5-19) BUN 10 (6-20) mg/dL Creatinine 0.4 L (0.5-0.9) mg/dL GFR Calculation 171.1 H (90-130) mL/min Glucose 80 (65-115) mg/dL Calculated Osmolal ity 283 L (285-295) mOsm/k g Lactate (0.5-2.2) mmol/L Calcium 7.2 L (8.5-10.5) mg/dL Total Bilirubin (0.15-1.2) mg/dL AST (0-32) U/L ALT (0-33) U/L Alkaline Phosphata se (35-105) IU/L Total Protein (6.6-8.7) g/dL Albumin (3.5-5.2) g/dL Globulin (1.3-4.6) g/dL Lipase (13-60) U/L Urine Color (Yellow) Urine Appearance (CLEAR) Urine pH (5-7) Ur Specific Gravit y (1.005-1.030) Urine Protein (Negative) Urine Glucose (UA) (Normal) Urine Ketones (Negative) Urine Blood (Negative) Urine Nitrate (Negative) Urine Bilirubin (NEGATIVE) Urine Urobilinogen (Negative) mg/dL Ur Leukocyte Marlys ase (Negative) Urine RBC (0-2) /hpf Urine WBC (0-5) /hpf Ur Squamous Epith Cells (0-5) Urine Bacteria (NONE) Urine Mucus Salicylates (3-10) mg/dL Urine Opiates Scre en (Negative) ng/mL Acetaminophen (10-30) ug/mL Ur Barbiturates Sc reen (Negative) ng/mL Ur Phencyclidine S crn (Negative) ng/mL Ur Amphetamines Sc reen (Negative) ng/mL U Benzodiazepines Scrn (Negative) ng/mL Urine Cocaine Scre en (Negative) ng/mL U Marijuana (THC) Screen (Negative) ng/mL Ethyl Alcohol (0-10) mg/dL Discharge Plan Discharge Patient Disposition: Admitted As Inpatient Admit Provider: Genna Nowak Clinical Impression: Lactic acidosis, Alcohol use disorder, severe, dependence, Suicidal ideation, Alcohol intoxication, Bipolar disorder Condition: Stable 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: ED Discharge Assessment Last Done: 03/02/20 17:55 ED Charges Last Done: 03/02/20 17:58 Discharge Date/Time: 03/02/20 18:03 Coding Level of Care Code ED Combatant Diver Officer for Jermaineg Fwd Exam Comprehensive
--- NOTE | 2020-03-02 10:55 | ECG_ITS ---
Measurements Intervals [place] Rate: 83 P: 56 OR: 168 QRS: 65 QRSD: 86 T: 57 QT: 395 QTc: 466 SINUS RHYTHM Compared to ECG 01/14/2020 15:30:29 Sinus tachycardia no longer present Poor R-wave progression no longer present Electronically Signed On 03-02-2020 19:44:57 CDT by Yasemin Terry M.D. [email or web address]
--- NOTE | 2020-03-02 10:55 | XR_ITS ---
WS: [id number] PORTABLE CHEST HISTORY: dyspnea/cough COMPARISON: 05/14/2019 Lungs are clear and well expanded. No pleural effusion or pneumothorax. Cardiac size: Normal. Mediastinum/Aorta: Normal mediastinum. No osseous abnormality seen. XR/XR chest 1V portable [id number] IMPRESSION: Unremarkable portable chest.
[2020-03-02 11:24] LABS: Basophils % 0.3 %; Hematocrit 38.7 % (37.0-47.0); Hemoglobin 12.4 g/dL (11.5-15.3); Lymphocytes # 0.8 10^3/uL (0.8-4.8); Lymphocytes % 13.2 %; Mean Corpuscular Hemoglobin 29.2 pg (28.0-34.0); Mean Corpuscular Volume 91.3 fL (81-99); Mean Platelet Volume 9.2 fL (7.4-10.4); Monocytes # 0.5 10^3/uL (0.2-0.9); Monocytes % 8.8 %; Neutrophils # 4.5 10^3/uL (1.8-7.7); Neutrophils % 77.2 %; Nucleated Red Blood Cells % 0 %; Platelet Count 114 10^3/cmm (130-400); Red Blood Count 4.24 10^6/uL (4.1-5.3); Red Cell Distribution Width 16.1 % (12.1-15.1); White Blood Count 5.8 10^3/uL (4.0-10.0)
[2020-03-02] MEDS: morphine 4 mg/mL SDV 1 mL IVP (11:25)
[2020-03-02] MEDS: ondansetron 2 mg/ML SDV 2 mL 4 MG IVP (11:25)
[2020-03-02] MEDS: sodium chloride 0.9% 1,000 ML 999 ML IV ×3 (11:28→15:33)
[2020-03-02 11:39] LABS: Protein Urine Trace (Negative); Urine Appearance SL Hazy (CLEAR); Urine Color Yellow (Yellow)
[2020-03-02 11:40] LABS: Add Urine Culture? No; Add Urine Microscopic? YES; Bacteria Urine 1+; Bilirubin Urine Neg (NEGATIVE); Blood Urine 3+ (Negative); Glucose Urine UA Norm (Normal); Ketones Urine 1+ (Negative); Leukocyte Esterase Urine Negative (Negative); Mucus Urine 1+; Nitrate Urine Negative (Negative); Urobilinogen Urine 1 mg/dL (Negative)
[2020-03-02 11:41] LABS: Alanine Aminotransferase 27 U/L (0-33); Albumin Level 3.9 g/dL (3.5-5.2); Alkaline Phosphatase 122 IU/L (35-105); Aspartate Amino Transferase 33 U/L (0-32); Blood Urea Nitrogen 13 mg/dL (6-20); Calcium 7.9 mg/dL (8.5-10.5); Carbon Dioxide 23 mmol/L (22-29); Chloride 99 mmol/L (98-107); Globulin 2.4 g/dL (1.3-4.6); Glomerular Filtration Rate 107.2 mL/min (90-130); Glucose 105 mg/dL (65-115); Lipase 12 U/L (13-60); Osmolality Calculated 291 mOsm/kg (285-295); Sodium 142 mmol/L (136-145); Total Bilirubin 1.1 mg/dL (0.15-1.2); Total Protein 6.3 g/dL (6.6-8.7)
[2020-03-02 11:50] LABS: Lactate (Lactic Acid level) 4.4 mmol/L (0.5-2.2)
--- NOTE | 2020-03-02 12:04 | CT_ITS ---
WS: [id number] CT ABDOMEN AND PELVIS WITH CONTRAST HISTORY: abd pain, diffuse abdominal pain for one week. History of gastric bypass and cholecystectomy . TECHNIQUE: Imaging performed of the abdomen and pelvis with IV contrast. Single phase imaging of the abdomen. Coronal and sagittal reformats are submitted. All CT scans at [facility] use at least one of these dose optimization techniques: automated exposure control; mA and/or kV adjustment per patient size (includes targeted exams where dose is matched to clinical indication); or iterativ e reconstruction. IV CONTRAST: Omnipaque 300; 95 mL IV. Oral contrast: No DLP: 1777.69 mGy.cm COMPARISON: 05/15/2019 Lower thorax: Lung bases are clear. Heart is normal size. No hiatal hernia. Liver/biliary system: Extensive hepatic steatosis. Mild central bile duct dilatation. Gallbladder: Prior cholecystectomy. Pancreas: Normal. Spleen: Normal. Adrenal glands: Normal. Right kidney: Normal. Left kidney: Normal. Aorta: Normal. Lymphadenopathy: None. Free fluid: None. GI tract: Prior gastric bypass surgery. No GI tract obstruction. The appendix is normal. No significa nt diverticular disease. Abdominal wall: Ventral abdominal wall hernia repair. Pelvis: No free fluid or adenopathy. Uterus is midline. No pelvic masses. Bones: Mild degenerative changes at the hip joints. CT/CT abdomen pelvis w con* [id number] IMPRESSION: 1. Hepatic steatosis. 2. Prior cholecystectomy with physiologic bile duct dilatation. 3. Normal appendix. 4. No ascites or free air.
[2020-03-02 12:19] LABS: Alcohol Level 138 mg/dL (0-10)
[2020-03-02 12:21] LABS: Amphetamines Screen Urine Negative (Negative); Barbiturates Screen Urine Negative (Negative); Benzodiazepines Screen Urine Negative (Negative); Cocaine Screen Urine Negative (Negative); Opiate Screen Urine Negative (Negative); PCP Screen Urine Negative (Negative); THC Screen Urine Negative (Negative)
[2020-03-02 12:22] LABS: Acetaminophen < 5.0 ug/mL (10-30); Salicylate < 0.3 mg/dL (3-10)
[2020-03-02] MEDS: iohexol 300 mg/mL 100 mL Btl IV (12:25)
[2020-03-02] MEDS: acetaminophen 500 mg Tablet 1000 MG PO (12:51)
[2020-03-02] MEDS: haloperidol inj 5 mg/mL INJ 1 mL IVP (13:54)
[2020-03-02 14:41] LABS: Anion Gap 23.9 (5-19); Blood Urea Nitrogen 10 mg/dL (6-20); Calcium 7.2 mg/dL (8.5-10.5); Carbon Dioxide 20 mmol/L (22-29); Chloride 99 mmol/L (98-107); Glomerular Filtration Rate 171.1 mL/min (90-130); Glucose 80 mg/dL (65-115); Osmolality Calculated 283 mOsm/kg (285-295); Potassium 3.9 mmol/L (3.5-5.1); Sodium 139 mmol/L (136-145)
[2020-03-02 15:53] LABS: ABG PCO2 35.5 mmHg (35-45); ABG PH Result 7.44 (7.35-7.45); Alveolar-Arterial Oxygen Gradi 27.1 mmHg (5-10); Arterial Blood Gas Hematocrit 32.7 % (37-47); Base Excess ABG 0.4 mmol/L (-2.0-2.0); Blood Gas Allen Test Pos; Blood Gas Sample Site Radial, left; Blood Gas Sample Type Arterial; HCO3 ABG 24.3 mmol/L (22-26); HGB O2 Sat 93.5 % (95-100); Oxygen Device ROOM AIR; Oxygen Saturation ABG 94.3; PO2 ABG 78.1 mmHg (80.0-100.0); Total Hemoglobin 10.7 g/dL (12-16)
[2020-03-02] MEDS: lidocaine 2% viscous 15 ML, aluminum-mag hydrox-simethicon 30 ML, sucralfate oral liq 1 GM PO (15:59)
[2020-03-02] MEDS: LORazepam 2 mg/mL INJ 1 mL 1 MG IVP (16:01)
[2020-03-02] MEDS: pantoprazole 40 mg SDV 80 MG IVP (16:03)
[2020-03-02] MEDS: pantoprazole 40 mg SDV IVP (18:32)
[2020-03-02] MEDS: dextrose 5%-sod chloride 0.9% 1,000 ML 150 ML IV (18:32)
--- NOTE | 2020-03-02 18:45 | PM.HP ---
Providers/Chief Complaint Admitting Physician: Genna Nowak MD Primary Care Provider: SOLEDAD Carlson Chief Complaint: MHE History of Present Illness Yeimy Perry is a 49 year old female who presented to the emergency room with chief complaint of suicidal ideation with a plan and acute alcohol intoxication. Review of records indicates that she has history of alcohol abuse, suicidal ideations and prior hospitalizations for such. She has been prescribed Antabuse and looks to follow closely with outpatient psychiatry. She states that she has not taken any of the Antabuse as it just came in. She had been maintaining sobriety for about a month and reports that she started drinking again a week ago. I cannot really get out of her anything else that has acutely happen but she reports that she wanted to cut her throat. She has some scratch gloria on her left palmar surface which she states are from her dog although they are quite linear and do not appear as an animal scratch. She reports nausea and vomiting, tremors and malaise as well as some overall discomfort. She is not able to localize any focal areas of pain with me. She does says she wants things to stop. 96-hour hold paperwork was completed in the emergency room. Work-up revealed elevated lactic acid and a mild elevation in anion gap. Blood alcohol level was 138. She was not felt to be stable for admission to psychiatric unit. She is being admitted to medical service for continued medical management prior to anticipated psychiatric stay. She was recently seen in the emergency room with reported menorrhagia though she denies that this is ongoing at the moment. Medications/Allergies Home Medications Medication Instructions Recorded Confirmed Last Taken Type ferrous sulfate 325 mg (65 mg 325 mg PO BID #60 tab 11/11/19 03/02/20 03/01/20 Rx iron) tablet Thera 1 tab PO DAILY 30 Days #30 tab 12/22/19 03/02/20 03/01/20 Rx disulfiram [Antabuse] 250 mg PO BID #60 tab 12/22/19 03/02/20 03/01/20 Rx folic acid 1 mg PO DAILY 30 Days #30 tab 12/22/19 03/02/20 03/01/20 Rx thiamine mononitrate (vit B1) 100 mg PO DAILY 30 Days #30 tab 12/22/19 03/02/20 03/01/20 Rx [Vitamin B-1 (mononitrate)] diclofenac potassium 50 mg tablet 50 mg PO BID #60 tab 01/07/20 03/02/20 03/01/20 Rx Geodon 40 mg PO BEDTIME 03/02/20 03/02/20 03/01/20 History Allergies Allergy/AdvReac Type Severity Reaction Status Date / Time acetaminophen [From [place]] Allergy ADR-Itching Verified 01/25/20 11:38 hydrocodone [From [place]] Allergy ADR-Itching Verified 01/25/20 11:38 PFSH Acute PFSH: Medical History (Updated 03/02/20 @ 20:59 by Genna Nowak MD) Alcohol dependence Has been prescribed antabuse Arthritis of right knee Bipolar disorder Has not tolerated increasing Geodon dosing Chronic post-traumatic stress disorder (PTSD) Depressive disorder Hx of cholecystitis Recurrent pancreatitis Suicidal thoughts in the past Surgical History History of Hx of gastric bypass Hx of hernia repair Hx of tubal ligation Hx of unilateral salpingectomy Right Family History Other Diabetes Heart disease Social History (Updated 03/02/20 @ 20:52 by Genna Nowak MD) Smoking and tobacco status: never smoked Alcohol intake: current History of recent travel: No Current gender identity: Female Female Reproductive History: Date of last menstrual period: 12/21/19 Vitals/I&O/Wt Last Vital Signs Temp 98.0 F 03/02/20 10:21 Pulse 88 03/02/20 17:55 Resp 18 03/02/20 17:55 BP 167/106 03/02/20 17:55 Pulse Ox 97 03/02/20 17:55 03/02/20 03/02/20 03/02/20 06:59 14:59 22:59 Intake Total 1000 / 1000 2000 / 3000 Balance 1000 / 1000 2000 / 3000 Weight last 48 hrs Weight 117.934 kg Physical Exam Const: OTHER: Alert, oriented x3, cooperative but quite anxious HENMT: OTHER: Normocephalic atraumatic, moist mucus membranes Eye: OTHER: Pupils equally round and reactive to light, conjunctive injected Resp: OTHER: Clear to auscultation bilaterally, no rales rhonchi or wheezes noted, no accessory muscle use noted, not tachypneic Cardio: OTHER: Regular rate and rhythm, no murmurs gallops or rubs. Pulses euqal throughout GI: OTHER: Abdomen soft, nontender, nondistended with positive bowel sounds : OTHER: Normal external genitalia Extremity: NARRATIVE EXTREMITY EXAM: No cyanosis, clubbing or edema, no acute synovitis Neuro: OTHER: Face symmetric, speech clear, moves all extremities, no tremor noted Psych: OTHER: Anxious, depressed, admits to continued suicidal thoughts and states that she wants things to end Skin: OTHER: Skin is dry with some very linear abrasions noted to the palmar surface of the left hand at the base of the thumb and at the base of the second digit. At the base of the second digit this is a conglomeration of linear lines. She states it is from her dog but it seems too perfect for that to me Data : 03/02/20 11:10 03/02/20 11:10 A&P Assessment and plan (1) Lactic acidosis: Status: Acute (2) Suicidal ideation: Status: Acute (3) Alcohol intoxication: Status: Acute Qualifiers: Complication of substance-induced condition: with unspecified complication Qualified Code(s): F10.929 - Alcohol use, unspecified with intoxication, unspecified (4) Alcohol use disorder, severe, dependence: Status: Acute (5) Chronic post-traumatic stress disorder (PTSD): Status: Chronic (6) Bipolar disorder: Status: Chronic Qualifiers: Active/Remission status: currently active Current bipolar episode type: mixed Current episode severity: unspecified Qualified Code(s): F31.60 - Bipolar disorder, current episode mixed, unspecified Additional A&P Information Dehydration Thrombocytopenia Mild elevation in LFTs Healing cuts to the left hand suspicious for cutting Inpatient admission 96-hour hold paperwork was completed We will have a sitter and suicide precautions IV fluids tonight Antiemetics Monitor for significant alcohol withdrawal symptoms [facility] protocol Recheck lactic acid and electrolytes in the morning When medically stable we will consult psychiatry We will continue home Geodon Banana bag Oral thiamine folate and multivitamin Continue home iron sulfate Hold diclofenac and disulfiram currently PPI SCDs for DVT prophylaxis secondary to thrombocytopenia, vomiting, risk of bleeding Due to care otherwise Full code Anticipate disposition to MPU Patient was given an opportunity to ask questions which were answered Attestations Medical Necessity Statement*: Anticipated stay greater than 2 midnights in a patient with acute alcohol intoxication and suicidal ideation. She was found to have lactic acidosis. Once medically cleared she will require psychiatric evaluation and I anticipate a psychiatric stay Coding Level of Care Code Acute Medical Records Analyst for Chg Fwd Diagnoses Lactic acidosis E87.2 Suicidal ideation R45.851 Alcohol intoxication F10.929 Complication of substance-induced condition: with unspecified complication Alcohol use disorder, severe, dependence F10.20 Chronic post-traumatic stress disorder (PTSD) F43.12 Bipolar disorder F31.60 Active/Remission status: currently active Current bipolar episode type: mixed Current episode severity: unspecified
[2020-03-02] MEDS: folic acid 1 MG, multivitamin inj 10 ML, thiamine 100 MG in sodium chloride 0.9% 1,000 ML 252.8 MG IV (19:37)
[2020-03-02] MEDS: ziprasidone hcl 40 mg Capsule PO (21:33)
[2020-03-03] VITALS (27 sets, daily range): BP systolic 132–181; BP diastolic 92–111; PULSE 70–106; RESP 13–30; TEMP 37–37.5; O2SAT 92–97
[2020-03-03] MEDS: dextrose 5%-sod chloride 0.9% 1,000 ML 150 ML IV ×3 (00:15→18:44)
[2020-03-03 05:34] LABS: Basophils % 0.4 %; Eosinophils % 1.5 %; Hematocrit 34.7 % (37.0-47.0); Hemoglobin 11.1 g/dL (11.5-15.3); Lymphocytes # 1.1 10^3/uL (0.8-4.8); Lymphocytes % 39.6 %; Mean Corpuscular Hemoglobin 29.7 pg (28.0-34.0); Mean Corpuscular Volume 92.8 fL (81-99); Mean Platelet Volume 9.4 fL (7.4-10.4); Monocytes # 0.3 10^3/uL (0.2-0.9); Monocytes % 12.5 %; Neutrophils # 1.3 10^3/uL (1.8-7.7); Neutrophils % 45.6 %; Nucleated Red Blood Cells % 0 %; Platelet Count 80 10^3/cmm (130-400); Red Blood Count 3.74 10^6/uL (4.1-5.3); Red Cell Distribution Width 15.8 % (12.1-15.1); White Blood Count 2.7 10^3/uL (4.0-10.0)
[2020-03-03 05:37] LABS: Lactate (Lactic Acid level) 1.1 mmol/L (0.5-2.2)
[2020-03-03 05:56] LABS: Alanine Aminotransferase 23 U/L (0-33); Albumin Level 3.3 g/dL (3.5-5.2); Alkaline Phosphatase 125 IU/L (35-105); Anion Gap 15.6 (5-19); Aspartate Amino Transferase 31 U/L (0-32); Blood Urea Nitrogen 6 mg/dL (6-20); Calcium 7.4 mg/dL (8.5-10.5); Carbon Dioxide 26 mmol/L (22-29); Chloride 97 mmol/L (98-107); Globulin 2.5 g/dL (1.3-4.6); Glomerular Filtration Rate 132.2 mL/min (90-130); Glucose 109 mg/dL (65-115); Magnesium 1.5 mg/dL (1.7-2.3); Osmolality Calculated 276 mOsm/kg (285-295); Phosphorus 2.5 mg/dL (2.5-4.5); Potassium 3.6 mmol/L (3.5-5.1); Sodium 135 mmol/L (136-145); Total Bilirubin 2.4 mg/dL (0.15-1.2); Total Protein 5.8 g/dL (6.6-8.7)
--- NOTE | 2020-03-03 08:09 | P.PN_ITS ---
Subjective Subjective: Interval history: Patient feels better today. Not quite as anxious appearing but still with mild tremor. Some nausea and not much appetite. No chest pain or difficulty breathing. Not feeling a strongly about wanting to hurt herself presently. Medications: Reviewed: Yes Vitals/I&O/Wt Last Vital Signs Temp 98.6 F 03/03/20 00:00 Pulse 87 03/03/20 08:00 Resp 21 H 03/03/20 08:00 BP 132/93 03/03/20 08:00 Pulse Ox 96 03/03/20 08:00 03/02/20 03/03/20 03/03/20 22:59 06:59 14:59 Intake Total 2000 / 3000 1962.5 / 4962.5 120 / 120 Output Total 300 / 300 2300 / 2600 Balance 1700 / 2700 -337.5 / 2362.5 120 / 120 Weight last 48 hrs Weight 121.653 kg Weight 117.934 kg Physical Exam Const: OTHER: Alert, oriented x3, cooperative HENMT: OTHER: Normocephalic atraumatic, moist mucus membranes Eye: OTHER: Pupils equally round and reactive to light, conjunctive less injected Resp: OTHER: Clear to auscultation bilaterally, no rales rhonchi or wheezes noted, no accessory muscle use noted Cardio: OTHER: Regular rate and rhythm, no murmurs gallops or rubs. Pulses euqal throughout. GI: OTHER: Abdomen soft, nontender, nondistended with positive bowel sounds Extremity: NARRATIVE EXTREMITY EXAM: No cyanosis, clubbing or edema Neuro: OTHER: Face symmetric, speech clear, moves all extremities, mild re sting tremor noted, no asterixis Psych: OTHER: Less anxious today Skin: OTHER: Some of the linear lacerations on her hand, dorsal surface, or more erythematous but no expansion of this beyond the immediate area. She also has scratches on the dorsum of her hand that are less significant. Data : 03/03/20 03:53 03/03/20 03:53 A&P Assessment and plan (1) Alcohol withdrawal: Mild tremor, anxiety, history of DTs reported Status: Acute Qualifiers: Complication of substance-induced condition: with unspecified co mplication Qualified Code(s): F10.239 - Alcohol dependence with withdrawal, unspecified (2) Elevated liver enzymes: [place] secondary to alcohol intoxication, history of this has been demonstrated in the past Status: Acute (3) Pancytopenia: [place] secondary to acute alcohol intoxication. Has demonstrated similar findings in the past. Probably has some degree of chronic alcoholic liver disease making her more susceptible. Status: Acute (4) Lactic acidosis: Status: Resolved (5) Suicidal ideation: Denies presently Status: Acute (6) Alcohol intoxication: Status: Resolved Qualifiers: Complication of substance-induced condition: with delirium Qualified Code(s): F10.921 - Alcohol use, unspecified with intoxication delirium (7) Alcohol use disorder, severe, dependence: Status: Chronic (8) Chronic post-traumatic stress disorder (PTSD): Status: Chronic (9) Bipolar disorder: Status: Chronic Additional A&P Information Dehydration, improved Hypokalemia, hypomagnesemia Negative hepatitis panel in November Healing cuts to the left hand suspicious for cutting Replace electrolytes Continue sitter and suicide precautions 96 hr hold Decrease IVFs Diet as tolerated Continue CIWA protocol Add triple antibiotic ointment for hand When medically stable we will consult psychiatry On home Geodon Need to monitor counts and may have to adjust medications such as geodon or PPI if they continue to drop S/P Banana bag Oral thiamine folate and multivitamin On iron sulfate Home diclofenac and disulfiram currently held PPI SCDs for DVT prophylaxis secondary to thrombocytopenia Supportive care otherwise Full code Anticipate disposition to NPU Patient was given an opportunity to ask questions which were answered Attestations Medical Necessity Statement*: Requires ongoing inpatient stay for medical stabilization prior to psych eval Coding Level of Care Code Acute 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
[2020-03-03] MEDS: pantoprazole DR 40 mg Tablet PO (08:12)
[2020-03-03] MEDS: thiamine 100 mg Tablet PO (08:12)
[2020-03-03] MEDS: ferrous sulfate EC 325 mg Tablet PO ×2 (08:12→18:40)
[2020-03-03] MEDS: folic acid 1 mg Tablet PO (08:13)
[2020-03-03] MEDS: multivitamin therapeutic Tablet 1 TAB PO (08:13)
[2020-03-03 08:56] LABS: Glucose Point of Care 79 mg/dL (70-110)
[2020-03-03] MEDS: LORazepam 2 mg/mL INJ 1 mL IVP (13:23)
[2020-03-03] MEDS: magnesium sulfate premix 2 GM/50 ML PIGGYBACK IV (13:55)
[2020-03-03] MEDS: neomycin-poly-bacitracin oint 28 gm 1 APPLIC TOPICAL ×2 (13:56→18:41)
[2020-03-03] MEDS: magnesium oxide 400 mg tablet PO ×2 (14:11→18:41)
--- NOTE | 2020-03-03 20:03 | PC.NURSE ---
patient awake alert and oriented very cooperative. sitter is at bedside due to SI precautions. all vs wnl. no complaints of pain or any suicidal thoughts at this time. assessment wnl all functions
[2020-03-03] MEDS: ziprasidone hcl 40 mg Capsule PO (21:01)
[2020-03-04] VITALS (18 sets, daily range): BP systolic 126–158; BP diastolic 87–106; PULSE 79–94; RESP 14–18; TEMP 36.6–37.5; O2SAT 93–98
[2020-03-04 04:07] LABS: Eosinophils # 0.1 10^3/uL (0.0-0.8); Hematocrit 33.8 % (37.0-47.0); Hemoglobin 10.7 g/dL (11.5-15.3); Lymphocytes # 1.2 10^3/uL (0.8-4.8); Lymphocytes % 33.2 %; Mean Corpuscular HGB Conc 31.7 g/dL (30.0-36.0); Mean Corpuscular Hemoglobin 30.6 pg (28.0-34.0); Mean Corpuscular Volume 96.6 fL (81-99); Mean Platelet Volume 10.6 fL (7.4-10.4); Monocytes # 0.5 10^3/uL (0.2-0.9); Monocytes % 12.8 %; Neutrophils # 1.8 10^3/uL (1.8-7.7); Neutrophils % 51.4 %; Nucleated Red Blood Cells % 0 %; Platelet Count 83 10^3/cmm (130-400); Red Cell Distribution Width 15.7 % (12.1-15.1); White Blood Count 3.5 10^3/uL (4.0-10.0)
[2020-03-04 04:24] LABS: Alanine Aminotransferase 20 U/L (0-33); Alkaline Phosphatase 100 IU/L (35-105); Anion Gap 14.6 (5-19); Aspartate Amino Transferase 27 U/L (0-32); Blood Urea Nitrogen 6 mg/dL (6-20); Calcium 8.7 mg/dL (8.5-10.5); Carbon Dioxide 23 mmol/L (22-29); Chloride 103 mmol/L (98-107); Creatinine Clr Calc Pharmacy 191.0401; Globulin 2.7 g/dL (1.3-4.6); Glomerular Filtration Rate 132.2 mL/min (90-130); Glucose 112 mg/dL (65-115); Magnesium 1.8 mg/dL (1.7-2.3); Osmolality Calculated 281 mOsm/kg (285-295); Potassium 3.6 mmol/L (3.5-5.1); Sodium 137 mmol/L (136-145); Total Bilirubin 1.3 mg/dL (0.15-1.2); Total Protein 5.7 g/dL (6.6-8.7)
--- NOTE | 2020-03-04 08:31 | P.PN_ITS ---
Subjective Subjective: Interval history: Patient doing better today not much in the way of tremors. Has not required much in the way of Ativan. Had a bowel movement today. Still not much appetite. Admits to continued feelings of depression but not as suicidal feeling today. Medications: Reviewed: Yes Vitals/I&O/Wt Last Vital Signs Temp 99.5 F 03/04/20 02:00 Pulse 94 03/04/20 08:00 Resp 17 03/04/20 08:00 BP 158/101 03/04/20 08:00 Pulse Ox 94 03/04/20 05:00 03/03/20 03/04/20 03/04/20 22:59 06:59 14:59 Intake Total 800 / 2180 240 / 2420 Output Total 1800 / 1800 700 / 2500 Balance -1000 / 380 -460 / -80 Weight last 48 hrs Weight 121.653 kg Weight 117.934 kg Physical Exam Const: OTHER: Alert, oriented x3, cooperative Cardio: OTHER: Regular rate GI: OTHER: Abdomen soft, nontender Extremity: NARRATIVE EXTREMITY EXAM: No cyanosis, clubbing or edema Neuro: OTHER: Face symmetric, speech clear, moves all extremities, no tremor, no asterixis Psych: OTHER: Not anxious appearing today. Answers questions with better eye contact Skin: OTHER: No change to wounds on left hand Data : 03/04/20 03:15 03/04/20 03:15 A&P Assessment and plan (1) Alcohol withdrawal: Mild tremor, anxiety, history of DTs reported > resolving. Has required only minimal Ativan Status: Acute Qualifiers: Complication of substance-induced condition: with unspecified compl ication Qualified Code(s): F10.239 - Alcohol dependence with withdrawal, u nspecified (2) Elevated liver enzymes: [place] secondary to alcohol intoxication, history of this has been demonstrated in the past. Trending downward. Status: Acute (3) Pancytopenia: [place] secondary to acute alcohol intoxication. Has demonstrated similar findings in the past. Probably has some degree of chronic alcoholic liver disease making her more susceptible. Counts are stable today he evidence of fever, bleeding or other issues related to this. Status: Acute (4) Lactic acidosis: Resolved Status: Resolved (5) Suicidal ideation: Denies presently Status: Acute (6) Alcohol intoxication: Present on admission but currently resolved Status: Resolved Qualifiers: Complication of substance-induced condition: with delirium Qualified Code(s): F10.921 - Alcohol use, unspecified with intoxication delirium (7) Alcohol use disorder, severe, dependence: Longstanding Status: Chronic (8) Chronic post-traumatic stress disorder (PTSD): Longstanding Status: Chronic (9) Bipolar disorder: Longstanding Status: Chronic Additional A&P Information Dehydration > resolved Hypokalemia, hypomagnesemia > resolved Negative hepatitis panel in November Healing cuts to the left hand suspicious for cutting Stop IV fluids Change to oral and IM options for CIWA protocol Discussed with Dr. Crain who has accepted her to the psychiatric unit Continue triple antibiotic ointment for hand On home Geodon Need to monitor counts and may have to adjust medications such as geodon or PPI if they continue to drop S/P Banana bag Oral thiamine, folate and multivitamin On iron sulfate Home diclofenac and disulfiram currently held >> continuing to hold diclofenac secondary to thrombocytopenia and disulfiram decision will be deferred to psychiatry On PPI Transition to up ad anthony. for DVT prophylaxis upon transfer Medically stable for disposition to NPU Would recheck CBC in a few days Upon discharge will need close follow-up with psychiatry and primary care provider Full code Patient was given an opportunity to ask questions which were answered Attestations Medical Necessity Statement*: Requires continued inpatient stay for psychiatric evaluation now that she is medically clear. 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
[2020-03-04] MEDS: pantoprazole DR 40 mg Tablet PO (09:16)
[2020-03-04] MEDS: thiamine 100 mg Tablet PO (09:17)
[2020-03-04] MEDS: multivitamin therapeutic Tablet 1 TAB PO (09:17)
[2020-03-04] MEDS: folic acid 1 mg Tablet PO (09:19)
[2020-03-04] MEDS: magnesium oxide 400 mg tablet PO ×2 (09:19→17:08)
--- NOTE | 2020-03-04 09:30 | PC.NURSE ---
Medication verification and witnessed administration of the medication by this nurse. The administering nurse is Heather Rudd LPN.
[2020-03-04] MEDS: ferrous sulfate EC 325 mg Tablet PO ×2 (09:46→17:08)
[2020-03-04] MEDS: neomycin-poly-bacitracin oint 28 gm 1 APPLIC TOPICAL (10:15)
[2020-03-04] MEDS: LORazepam 2 mg Tablet PO ×2 (12:54→20:12)
--- NOTE | 2020-03-04 12:55 | PC.NURSE ---
Addendum entered by Alicja Arzola LPN 03/04/20 13:43: ciwa score now at a 7 Original Note: CIWA SCORE 11 ATIVAN 2 MG GIVEN PO PER PROTOCOL. PT C/O SEVERE HEADACHE, SITTING IN DAY ROOM WATCHING TV CURRENTLY BUT C/O DIZZINESS WILL REASSESS CIWA SCORE WITHIN AN HOUR.
[2020-03-04] MEDS: ziprasidone hcl 40 mg Capsule PO (20:13)
--- NOTE | 2020-03-04 20:15 | PC.NURSE ---
ATIVAN ADMINISTERED ATIVAN 2 MG PO PER CIWA PROTOCOL. CIWA SCORE 11. WILL MONITOR FOR MEDICATION EFFECTIVENESS.
[2020-03-05 06:00] VITALS: BP 143/89; PULSE 68; RESP 16; TEMP 36.8; O2SAT 96
--- NOTE | 2020-03-05 07:53 | PC.NURSE ---
PT VOICED HER HEAD WAS POUNDING AND HER CHEST FELT A LITTLE TIGHT.ASKED STAFF TO TAKE BP. 168/122-67. REPORTED THIS TO DR ABDUL. PT ATE BREAKFAST AND IS CURRENTLY LYING DOWN.
[2020-03-05] MEDS: multivitamin therapeutic Tablet 1 TAB PO (08:05)
[2020-03-05] MEDS: folic acid 1 mg Tablet PO (08:06)
[2020-03-05] MEDS: ferrous sulfate EC 325 mg Tablet PO (08:06)
[2020-03-05] MEDS: magnesium oxide 400 mg tablet PO (08:06)
[2020-03-05] MEDS: thiamine 100 mg Tablet PO (08:06)
[2020-03-05] MEDS: pantoprazole DR 40 mg Tablet PO (08:07)
--- NOTE | 2020-03-05 11:04 | P.DS_ITS ---
Diagnoses at Discharge Discharge Diagnosis (1) Alcohol withdrawal: Status: Resolved Qualifiers: Complication of substance-induced condition: with unspecified complication Qualified Code(s): F10.239 - Alcohol dependence with withdrawal, unspecified (2) Elevated liver enzymes: Status: Acute (3) Pancytopenia: Status: Acute (4) Lactic acidosis: Status: Resolved (5) Suicidal ideation: Status: Acute (6) Alcohol intoxication: Status: Resolved Qualifiers: Complication of substance-induced condition: with delirium Qualified Code(s): F10.921 - Alcohol use, unspecified with intoxication delirium (7) Alcohol use disorder, severe, dependence: Status: Chronic (8) Chronic post-traumatic stress disorder (PTSD): Status: Chronic (9) Bipolar disorder: Status: Chronic Reason for Visit Reason for Visit: Reason For Visit: MHE Brief History: HPI Narrative: 49-year-old female presents with complaints of abdominal pain localizes to the epigastrium. For the last week she has been drinking aggressively over 1/5 of hard alcohol per day she states her last drink was yesterday morning she still smells strongly of alcohol. She has a history of pancreatitis related to alcoholism she has had nausea and vomiting although she is just dry heaving now she has been vomiting so much she cannot recall the last time she actually ate denies any coffee-ground emesis or hematemesis but she has had 1 melanic stool she described as dark and tarry she denies fever she has had some shortness of breath but no cough and no productive cough. She has several cuts in the back of her left hand which she states are from a puppy tells me immunizations are up-to-date she denies any other symptoms. She denies any UTI symptoms denies any hematuria denies any chest pain or tightness. ICU H&P Yeimy Perry is a 49 year old female who presented to the emergency room with chief complaint of suicidal ideation with a plan and acute alcohol intoxication. Review of records indicates that she has history of alcohol abuse, suicidal ideations and prior hospitalizations for such. She has been prescribed Antabuse and looks to follow closely with outpatient psychiatry. She states that she has not taken any of the Antabuse as it just came in. She had been maintaining sobriety for about a month and reports that she started drinking again a week ago. I cannot really get out of her anything else that has acutely happen but she reports that she wanted to cut her throat. She has some scratch gloria on her left palmar surface which she states are from her dog although they are quite linear and do not appear as an animal scratch. She reports nausea and vomiting, tremors and malaise as well as some overall discomfort. She is not able to localize any focal areas of pain with me. She does says she wants things to stop. 96-hour hold paperwork was completed in the emergency room. Work-up revealed elevated lactic acid and a mild elevation in anion gap. Blood alcohol level was 138. She was not felt to be stable for admission to psychiatric unit. She is being admitted to medical service for continued medical management prior to anticipated psychiatric stay. She was recently seen in the emergency room with reported menorrhagia though she denies that this is ongoing at the moment. Hospital Course Discharge Summary (1) Lactic acidosis: Status: Acute (2) Suicidal ideation: Status: Acute (3) Alcohol intoxication: Status: Acute Qualifiers: Complication of substance-induced condition: with unspecified complication Qualified Code(s): F10.929 - Alcohol use, unspecified with intoxication, unspecified (4) Alcohol use disorder, severe, dependence: Status: Acute (5) Chronic post-traumatic stress disorder (PTSD): Status: Chronic (6) Bipolar disorder: Status: Chronic Qualifiers: Active/Remission status: currently active Current bipolar episode type: mixed Current episode severity: unspecified Qualified Code(s): F31.60 - Bipolar disorder, current episode mixed, unspecified Additional A&P Information Dehydration Thrombocytopenia Mild elevation in LFTs Healing cuts to the left hand suspicious for cutting Inpatient admission 96-hour hold paperwork was completed We will have a sitter and suicide precautions IV fluids tonight Antiemetics Monitor for significant alcohol withdrawal symptoms [facility] protocol Recheck lactic acid and electrolytes in the morning When medically stable we will consult psychiatry We will continue home Geodon Banana bag Oral thiamine folate and multivitamin Continue home iron sulfate Hold diclofenac and disulfiram currently PPI SCDs for DVT prophylaxis secondary to thrombocytopenia, vomiting, risk of bleeding Due to care otherwise Full code Anticipate disposition to MPU Patient was given an opportunity to ask questions which were answered She was transferred to psychiatry on hospital day #4. At that time, she stated that that was no longer inebriated. That she is able to stay sober as long as she has her Antabuse and that she now has her supply of Antabuse so she was demanding to leave. There was no indication of imminent danger to self or other s other than her chronic incapacity to remain sober. However that was not because of to demonstrate imminent risk. At the same time, it is noted that her commitment papers were filled out incorrectly. Even though the 96-hour rocio from the time she was to be committed would not be up today, it was felt that given that she was not an imminent risk and that likely the errors in the commitment papers would indicate that she would have been held here illegally, it was decided to allow her to sign out AGAINST MEDICAL ADVICE. Involuntary Hold Information 96 Hour Hold: 96 Hour Involuntary Admission: No 96 Hour Hold Ending Date: 12/19/19 96 Hour Hold Ending Time: 21:28 Mental Status Exam MSE Comments: Discharge Mental Status Exam: Patient presents as an alert and interpersonally engaged woman appearing her stated age. She is in no apparent physical or emotional distress. Her attitude is demanding and generally unfriendly. Appearance: hygiene is good; no gross neurological deficits., gait is unremarkable; AIMS=0 Speech: Speech is of normal rate and rhythm and easily understood. Thought processes: Thought processes are abstract. Judgment is adequate for safety. Associations: intact Psychotic processes: There is no indication of guarding or paranoia. There is no attention to the internal stimuli. Auditory and visual hallucinations are d enied. Judgment: Insight is fair. Problem solving skills are adequate for safety. Orientation: The patient is oriented to person, place time and situation. Memory: no deficits noted in immediate, intermediate, or remote spheres. Attention: The patient is alert and interpersonally engaged. Language: Verbalizations are coherent. Fund of knowledge: Fund of knowledge is adequate. Affect/Mood: Affect is irritable with a euthymic mood. denied suicidal ideation Affective range is constricted Psychosis: perception unimpaired except through cognitive distortion; reality testing intact. Discharge Data Data Completed and Pending: Completed Studies During Hospitalization Category Date Time Status CT abdomen pelvis w con* [id number] Stat Cat Scan 03/02/20 12:04 Completed XR chest 1V miladys ble [id number] Stat Exams 03/02/20 10:55 Completed Pending at discharge Category Date Time Status Arterial Blood Ga s Full Routine Lab 03/02/20 15:40 Results Vitals: Last Vital Signs Temp 98.3 F 03/05/20 06:00 Pulse 68 03/05/20 06:00 Resp 16 03/05/20 06:00 BP 143/89 03/05/20 06:00 Pulse Ox 96 03/05/20 06:00 Discharge Plan Discharge Patient Disposition: Left Against Medical Advice Condition: Stable Prescriptions: Continued ferrous sulfate 325 mg (65 mg iron) tablet 325 mg PO BID Qty: 60 RF: 5 diclofenac potassium 50 mg tablet 50 mg PO BID Qty: 60 RF: 2 folic acid 1 mg Tablet 1 mg PO DAILY 30 Days Qty: 30 RF: 1 thiamine mononitrate (vit B1) [Vitamin B-1 (mononitrate)] 100 mg Tablet 100 mg PO DAILY 30 Days Qty: 30 RF: 1 Thera 400 mcg Tablet 1 tab PO DAILY 30 Days Qty: 30 RF: 1 disulfiram [Antabuse] 250 mg tablet 250 mg PO BID Qty: 60 RF: 1 Geodon 40 mg capsule 40 mg PO BEDTIME RF: 0 Discharge Orders: Discharge Order (Routine); Ordered 03/05/20 Ordered By: Robert Crain Discharge Attestations NPU Time Spent in Discharge Care*: greater than 30 min Coding Level of Care Code 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
--- NOTE | 2020-03-05 11:20 | PM.NHP ---
Providers/Chief Complaint Admitting Physician: Genna Nowak MD Primary Care Provider: SOLEDAD Carlson Chief Complaint: MHE HPI NPU History of Present Illness ER physician note: HPI Narrative: 49-year-old female presents with complaints of abdominal pain localizes to the epigastrium. For the last week she has been drinking aggressively over 1/5 of hard alcohol per day she states her last drink was yesterday morning she still smells strongly of alcohol. She has a history of pancreatitis related to alcoholism she has had nausea and vomiting although she is just dry heaving now she has been vomiting so much she cannot recall the last time she actually ate denies any coffee-ground emesis or hematemesis but she has had 1 melanic stool she described as dark and tarry she denies fever she has had some shortness of breath but no cough and no productive cough. She has several cuts in the back of her left hand which she states are from a puppy tells me immunizations are up-to-date she denies any other symptoms. She denies any UTI symptoms denies any hematuria denies any chest pain or tightness. ICU H&P Yeimy Perry is a 49 year old female who presented to the emergency room with chief complaint of suicidal ideation with a plan and acute alcohol intoxication. Review of records indicates that she has history of alcohol abuse, suicidal ideations and prior hospitalizations for such. She has been prescribed Antabuse and looks to follow closely with outpatient psychiatry. She states that she has not taken any of the Antabuse as it just came in. She had been maintaining sobriety for about a month and reports that she started drinking again a week ago. I cannot really get out of her anything else that has acutely happen but she reports that she wanted to cut her throat. She has some scratch gloria on her left palmar surface which she states are from her dog although they are quite linear and do not appear as an animal scratch. She reports nausea and vomiting, tremors and malaise as well as some overall discomfort. She is not able to localize any focal areas of pain with me. She does says she wants things to stop. 96-hour hold paperwork was completed in the emergency room. Work-up revealed elevated lactic acid and a mild elevation in anion gap. Blood alcohol level was 138. She was not felt to be stable for admission to psychiatric unit. She is being admitted to medical service for continued medical management prior to anticipated psychiatric stay. She was recently seen in the emergency room with reported menorrhagia though she denies that this is ongoing at the moment. Review of Systems General: Reports: Other (Review of SystemsConstitutional: Complains of: FatigueEyes: Complains of: No eye symptomsENT/Mouth: Complains of: No ENTM symptomsCardiovascular: Complains of: No cardiac symptomsRespiratory: Complains of: No respiratory symptomsGI: Complains of: No GI symptomsNeuro: Complains of: No neuro symptomsMusculoskeletal: Complains of: No musculoskeletal symptomsSkin: Complains of: No skin symptomsHematologic/Lymphatic: Complains of: No hematologic/lymphatic symptomsEndocrine: Complains of: No endocrine symptomsGU: Complains of: No symptomsPsych: Depression, Suicide ideation) Meds NPU Home Medications Medication Instructions Recorded Confirmed Last Taken Type ferrous sulfate 325 mg (65 mg 325 mg PO BID #60 tab 11/11/19 03/02/20 03/01/20 Rx iron) tablet Thera 1 tab PO DAILY 30 Days #30 tab 12/22/19 03/02/20 03/01/20 Rx disulfiram [Antabuse] 250 mg PO BID #60 tab 12/22/19 03/02/20 03/01/20 Rx folic acid 1 mg PO DAILY 30 Days #30 tab 12/22/19 03/02/20 03/01/20 Rx thiamine mononitrate (vit B1) 100 mg PO DAILY 30 Days #30 tab 12/22/19 03/02/20 03/01/20 Rx [Vitamin B-1 (mononitrate)] diclofenac potassium 50 mg tablet 50 mg PO BID #60 tab 01/07/20 03/02/20 03/01/20 Rx Geodon 40 mg PO BEDTIME 03/02/20 03/02/20 03/01/20 History Allergies Allergy/AdvReac Type Severity Reaction Status Date / Time acetaminophen [From [facility]] Allergy ADR-Itching Verified 01/25/20 11:38 hydrocodone [From [facility]] Allergy ADR-Itching Verified 01/25/20 11:38 PFSH NPU PFSH: Medical History (Updated 03/05/20 @ 11:05 by Robert Crain MD) Alcohol dependence Has been prescribed antabuse Arthritis of right knee Bipolar disorder Chronic post-traumatic stress disorder (PTSD) Depressive disorder Hx of cholecystitis Iron deficiency anemia Recurrent pancreatitis Suicidal thoughts in the past Surgical History History of Hx of gastric bypass Hx of hernia repair Hx of tubal ligation Hx of unilateral salpingectomy Right Family History Other Diabetes Heart disease Social History (Updated 03/02/20 @ 20:52 by Genna Nowak MD) Smoking and tobacco status: never smoked Alcohol intake: current History of recent travel: No Current gender identity: Female Mental Status Exam MSE Comments: Discharge Mental Status Exam: Patient is alert interpersonally engaged woman appearing approximately her stated age. Eye contact is good. Her manner is demanding and her demeanor is unfriendly. Appearance: hygiene is good; no gross neurological deficits., gait is unremarkable; AIMS=0 Speech: Speech is of normal rate and rhythm and easily understood. Thought processes: Thought processes are abstract. Judgment is adequate for safety. Associations: intact Psychotic processes: There is no indication of guarding or paranoia. There is no attention to the internal stimuli. Auditory and visual hallucinations are denied. Judgment: Insight is fair. Problem solving skills are adequate for safety. Orientation: The patient is oriented to person, place time and situation. Memory: no deficits noted in immediate, intermediate, or remote spheres. Attention: The patient is alert and interpersonally engaged. Language: Verbalizations are coherent. Fund of knowledge: Fund of knowledge is adequate. Affect/Mood: Affect is consistent with a euthymic mood. denied suicidal ideation Affective range is appropriate. Psychosis: perception unimpaired except through cognitive distortion; reality testing intact. Vitals/I&O/Wt Last Vital Signs Temp 98.3 F 03/05/20 06:00 Pulse 68 03/05/20 06:00 Resp 16 03/05/20 06:00 BP 143/89 03/05/20 06:00 Pulse Ox 96 03/05/20 06:00 Data NPU : 03/04/20 03:15 03/04/20 03:15 A&P Additional A&P Information (1) Lactic acidosis: Status: Acute (2) Suicidal ideation: Status: Acute (3) Alcohol intoxication: Status: Acute Qualifiers: Complication of substance-induced condition: with unspecified complication Qualified Code(s): F10.929 - Alcohol use, unspecified with intoxication, unspecified (4) Alcohol use disorder, severe, dependence: Status: Acute (5) Chronic post-traumatic stress disorder (PTSD): Status: Chronic (6) Bipolar disorder: Status: Chronic Qualifiers: Active/Remission status: currently active Current bipolar episode type: mixed Current episode severity: unspecified Qualified Code(s): F31.60 - Bipolar disorder, current episode mixed, unspecified Additional A&P Information Dehydration Thrombocytopenia Mild elevation in LFTs Healing cuts to the left hand suspicious for cutting Inpatient admission 96-hour hold paperwork was completed We will have a sitter and suicide precautions IV fluids tonight Antiemetics Monitor for significant alcohol withdrawal symptoms [facility] protocol Recheck lactic acid and electrolytes in the morning When medically stable we will consult psychiatry We will continue home Geodon Banana bag Oral thiamine folate and multivitamin Continue home iron sulfate Hold diclofenac and disulfiram currently PPI SCDs for DVT prophylaxis secondary to thrombocytopenia, vomiting, risk of bleeding Due to care otherwise Full code Anticipate disposition to MPU Patient was given an opportunity to ask questions which were answered The patient arrived on the psychiatric unit demanding to be left to leave as her 96-hour involuntary commitment had . In fact, the time of expiration was not for the beginning of next week. However the documentation that was filed for her 96-hour commitment had erroneous information on it. Because she was not presenting as an imminent risk to self or others, was demanding to leave it, and it was suspected that the commitment papers were invalid, she was allowed to be discharged AGAINST MEDICAL ADVICE. Plan: #1 Continue Antabuse 250 mg twice daily; #2 Continue Geodon 40 mg each evening; #3 Continue individual psychotherapy as directed. Involuntary Hold Information 96 Hour Hold: 96 Hour Involuntary Admission: No 96 Hour Hold Ending Date: 12/19/19 96 Hour Hold Ending Time: 21:28 Attestations NPU Medical Necessity Statement*: Patient was discharged AGAINST MEDICAL ADVICE. Coding Level of Care Code Acute Public Service Director for Hannah Fulton
[2020-03-05 11:30] VITALS: BP 143/89; PULSE 68; RESP 16; TEMP 36.8; O2SAT 96
== END 2020-03-05 12:30 | disposition left against medical advice (07) | DRG 894 ==
LOC: ER 11:12 → ICU 17:28 → NP 03-04 09:56
PROVIDERS: Admitting Provider Hospitalist; Emergency Provider Family Medicine; PCP Nurse Practitioner; Visit Provider Hospitalist
DX: F10.239 Alcohol dependence with withdrawal, unspecified (principal); D61.818 Other pancytopenia; E87.2 Acidosis; R45.851 Suicidal ideations; F10.229 Alcohol dependence with intoxication, unspecified; Z53.29 Procedure and treatment not carried out because of patient's decision for other reasons; F43.12 Post-traumatic stress disorder, chronic; F31.9 Bipolar disorder, unspecified; Y90.6 Blood alcohol level of 120-199 mg/100 ml; E86.0 Dehydration; D69.6 Thrombocytopenia, unspecified; Z91.5 Personal history of self-harm; M13.861 Other specified arthritis, right knee; Z98.84 Bariatric surgery status
CPT/HCPCS: 12345; 36415; 36416; 36600; 71045; 74177; 80048; 80051; 80053; 80306; 80307; 81001; 82810; 82962; 83605; 83690; 83735; 83986; 84100; 85025; 93005; 96375; 99285; C9113; J1630; J2060; J2270; J2405; J3411; J3475; J3490; J7030; Q9967

== ENCOUNTER → 2020-03-08 08:01 | Outpatient (BNVA) | payer MEDICAID, SELFPAY | PROVIDERS: Visit Provider Social Worker Clinical | DX: F31.9 Bipolar disorder, unspecified (principal); F43.12 Post-traumatic stress disorder, chronic; F10.20 Alcohol dependence, uncomplicated | CPT/HCPCS: 90834 ==

== ENCOUNTER → 2020-03-09 08:23 | Outpatient (BNVA) | payer MEDICAID, SELFPAY | PROVIDERS: Visit Provider Nurse Practitioner Psychiatric/Mental Health | DX: F43.12 Post-traumatic stress disorder, chronic (principal); F10.20 Alcohol dependence, uncomplicated; F31.9 Bipolar disorder, unspecified | CPT/HCPCS: 99212 ==

== ENCOUNTER → 2020-03-22 07:58 | Outpatient (BNVA) | payer MEDICAID, SELFPAY | PROVIDERS: Visit Provider Social Worker Clinical | DX: F31.9 Bipolar disorder, unspecified (principal); F43.12 Post-traumatic stress disorder, chronic; F10.20 Alcohol dependence, uncomplicated | CPT/HCPCS: 90832 ==

== ENCOUNTER → 2020-03-29 07:48 | Outpatient (BNVA) | payer MEDICAID, SELFPAY | PROVIDERS: Visit Provider Nurse Practitioner Psychiatric/Mental Health | DX: F31.9 Bipolar disorder, unspecified (principal); F43.12 Post-traumatic stress disorder, chronic; F10.20 Alcohol dependence, uncomplicated; F41.1 Generalized anxiety disorder | CPT/HCPCS: 99212 ==

== ENCOUNTER → 2020-04-05 07:50 | Outpatient (BNVA) | payer MEDICAID, SELFPAY | PROVIDERS: Visit Provider Social Worker Clinical | DX: F43.12 Post-traumatic stress disorder, chronic (principal); F31.9 Bipolar disorder, unspecified; F10.20 Alcohol dependence, uncomplicated | CPT/HCPCS: 90834 ==

== ENCOUNTER 2020-04-16 05:55 | Emergency (ER) | payer MEDICAID, SELFPAY ==
[2020-04-16 05:56] VITALS: BMI 39.5
[2020-04-16 06:01] VITALS: BP 139/90; PULSE 86; RESP 16; TEMP 37; O2SAT 99
--- NOTE | 2020-04-16 06:19 | XR_ITS ---
WS: [id number] PORTABLE CHEST HISTORY: dyspnea/abd pain COMPARISON: 03/02/2020 Lungs are clear and well expanded. No pleural effusion or pneumothorax. Cardiac size: Normal. Mediastinum/Aorta: Normal mediastinum. No osseous abnormality seen. XR/XR chest 1V portable [id number] IMPRESSION: Unremarkable portable chest.
--- NOTE | 2020-04-16 06:23 | W.ED.ABDPA2 ---
HPI - Abdominal Pain General: Chief Complaint: Abdominal Pain Stated Complaint: ABDOMINAL PAIN Time Seen by Provider: 04/16/20 06:19 History of Present Illness: HPI narrative: 50-year-old female presents emergency room complaining of abdominal pain and periumbilical pain radiating into the epigastrium in the right lower quadrant. Ms. Rico is well-known to us for her history of alcoholism she tells me she had 30 days of sobriety but she stopped taking her disulfiram actually about 30 days ago she drank at least 3 pints of vodka yesterday stated her boyfriend began drinking so she just comes in along with him. Tells me her last drink was last night some time she thought may be at around 7:00 but she is not entirely sure. She has severe [facility] nausea and vomiting abdominal pain she not had any diarrhea she denies any hematemesis coffee-ground emesis no hematochezia. She is not been able to eat or drink. She denies dysuria urgency or frequency. She denies any recent upper respiratory illness fever sweats or chills. She has not been around anyone with COVID-19 that she is aware of. MD elicited complaint: abdominal pain Pertinent past history: other (History of recurrent pancreatitis related to alcoholism) Onset (ago): hour(s) Pain Consistency: constant Location: Periumbilical Severity: severe Quality: cramping Radiation: RLQ and epigastric Migration to: RLQ Exacerbating factors: eating and vomiting Relieving factors: other (No p.o. intake) Context: history of similar episodes and other (History of alcoholic pancreatitis) Associated Symptoms: Reports anorexia, bloating, GI cramping, dyspepsia, nausea, poor appetite and vomiting; Denies coffee ground emesis, diarrhea, dysuria, fever(s), hematochezia, hematuria, hematemesis and melena Related Data: Date of Last Menstrual Period: 04/09/20 Review of Systems Const: Denies: fever(s) ENMT: Denies: throat pain, ear or mastoid pain, nasal discharge or nasal congestion Card: Denies: chest pain, edema, dyspnea on exertion or orthopnea Resp: Denies: dyspnea, productive cough or non-productive cough GI: Reports: nausea, vomiting, bloating and GI cramping; Denies: hematemesis, coffee ground emesis, diarrhea, hematochezia or melena : Denies: dysuria or hematuria Skin/Breast: Denies: rash or pruritus PFSH ED PFSH: Medical History Alcohol dependence Has been prescribed antabuse Arthritis of right knee Bipolar disorder See comments below. Chronic post-traumatic stress disorder (PTSD) No reports of problematic nightmares, hypervigilance, avoidance behavior, or intrusive flashbacks during this assessment. Depressive disorder Hx of cholecystitis Iron deficiency anemia Recurrent pancreatitis Suicidal thoughts in the past Surgical History History of Hx of gastric bypass Hx of hernia repair Hx of tubal ligation Hx of unilateral salpingectomy Right Family History Other Diabetes Heart disease Social History Smoking and tobacco status: never smoked Alcohol intake: current History of recent travel: No Current gender identity: Female Female Reproductive History: Date of last menstrual period: 04/09/20 Physical Exam Const: COMMON NORMALS: no acute distress GENERAL APPEARANCE: cooperative and comfortable ORIENTATION/CONSCIOUSNESS: Yes awake, Yes oriented to person, Yes oriented to place and Yes oriented to time HENMT: COMMON NORMALS: normocephalic, atraumatic, hearing grossly normal bilaterally, external ears normal, EAC's normal, TM's normal bilaterally, Normal nasal mucous membranes and turbinates present, moist oral mucous membranes and oropharynx normal HEAD & SCALP: normocephalic and atraumatic NOSE: Normal nasal mucous membranes and turbinates present EXTERNAL EAR: Yes external ears normal EXTERNAL AUDITORY CANAL: EAC's normal TYMPANIC MEMBRANE: TM's normal bilaterally Eye: COMMON NORMALS: Equal, round and reactive pupils present, EOMs intact bilaterally, conjunctivae normal and no scleral icterus CONJUNCTIVA: Yes conjunctivae normal PUPIL: Yes Equal, round and reactive pupils present Neck/C-Spine: COMMON NORMALS: full ROM, no lymphadenopathy, supple and no JVD Lymph: LYMPHATIC: no lymphadenopathy noted and no lymphedema noted Resp: COMMON NORMALS: normal respiratory effort, No retractions, No use of accessory muscles and clear to auscultation bilaterally AUSCULTATION: clear to auscultation bilaterally Cardio: COMMON NORMALS: no JVD, regular rate, regular rhythm and No murmurs present (Cardio) RATE: regular rate RHYTHM: regular rhythm GI: COMMON NORMALS: Soft to palpation and No hepatosplenomegaly present AUSCULTATION: Yes normoactive bowel sounds PALPATION: Yes Soft to palpation, No Tenderness to palpation present (GI), No Guarding due to palpation present (GI) and Yes No hepatosplenomegaly present Extremity: COMMON NORMALS: normal to inspection, capillary refill normal, no clubbing, cyanosis or edema, no calf tenderness and no pedal edema Neuro: SENSORIUM/ORIENTATION: Yes oriented to person, Yes oriented to place and Yes oriented to time Skin: COMMON NORMALS: no rashes or lesions noted GENERAL SKIN EXAM: no rashes or lesions noted Course Vital Signs: Vital signs: Vital Signs Temperature 98.6 F 04/16/20 06:01 Pulse Rate 91 04/16/20 09:20 Respiratory Rate 16 04/16/20 09:20 Blood Pressure 148/111 04/16/20 09:20 Pulse Oximetry 99 04/16/20 09:20 MDM - Abdominal Pain MDM Narrative: Medical decision making narrative: Reviewed findings with the patient. There is no evidence of acute pancreatitis at this time and I believe she has alcoholic gastritis from large inflamed intake of vodka she has had over the last 24 to 36 hours. Reviewed her results with her we will start her on Carafate strongly encouraged to stop drinking also should avoid the diclofenac. Strongly encourage her to seek out outpatient care including [facility] or the local treatment [facility] she may be need to consider inpatient we gave her contact information for this she is aware of their available services. Lab Data: Labs: Lab Results 04/16/20 04/16/20 04/16/20 Range/Units 06:20 06: 06:20 WBC Cancelled Corrected WBC Cancelled RBC Cancelled Hgb Cancelled Hct Cancelled MCV Cancelled MCH Cancelled MCHC Cancelled RDW Cancelled Plt Count Cancelled MPV Cancelled Gran % Cancelled Neut % (Auto) Cancelled Lymph % (Auto) Cancelled Pend[place] % (Auto) Cancelled Eos % (Auto) Cancelled Baso % (Auto) Cancelled Neut # (Auto) Cancelled Lymph # (Auto) Cancelled P[place] # (Auto) Cancelled Eos # (Auto) Cancelled Baso # (Auto) Cancelled Absolute Gran (aut o) Cancelled Nucleated RBC % (a uto) Cancelled Nucleated RBCs # Cancelled Sodium 138 (136-145) mmol/L Potassium 3.8 (3.5-5.1) mmol/L Chloride 99 (98-107) mmol/L Carbon Dioxide 23 (22-29) mmol/L Anion Gap 19.8 H (5-19) BUN 8 (6-20) mg/dL Creatinine 0.5 (0.5-0.9) mg/dL GFR Calculation 131.7 H (90-130) mL/min Glucose 87 (65-115) mg/dL Calculated Osmolal ity 281 L (285-295) mOsm/k g Lactate 2.5 H (0.5-2.2) mmol/L Calcium 8.6 (8.5-10.5) mg/dL Total Bilirubin 1.0 (0.15-1.2) mg/dL AST 28 (0-32) U/L ALT 18 (0-33) U/L Alkaline Phosphata se 70 (35-105) IU/L Ammonia (11-51) umol/L Total Protein 6.7 (6.6-8.7) g/dL Albumin 4.1 (3.5-5.2) g/dL Globulin 2.6 (1.3-4.6) g/dL Lipase 22 (13-60) U/L Urine Color (Yellow) Urine Appearance (CLEAR) Urine pH (5-7) Ur Specific Gravit y (1.005-1.030) Urine Protein (Negative) Urine Glucose (UA) (Normal) Urine Ketones (Negative) Urine Blood (Negative) Urine Nitrate (Negative) Urine Bilirubin (NEGATIVE) Urine Urobilinogen (Negative) mg/dL Ur Leukocyte Marlys ase (Negative) Urine RBC (0-2) /hpf Urine WBC (0-5) /hpf Ur Squamous Epith Cells (0-5) Amorphous Sediment Urine Bacteria (NONE) Ethyl Alcohol 132 H (0-10) mg/dL 04/16/20 04/16/20 04/16/20 Range/Units 06:20 06:46 06:52 WBC 5.1 Corrected WBC RBC 4.05 L Hgb 12.4 Hct 37.7 MCV 93.1 MCH 30.6 MCHC 32.9 RDW 14.5 Plt Count 164 MPV 9.5 Gran % Neut % (Auto) 61.9 Lymph % (Auto) 26.8 Pendleton % (Auto) 9.7 Eos % (Auto) 0.8 Baso % (Auto) 0.4 Neut # (Auto) 3.1 Lymph # (Auto) 1.4 Pend[place] # (Auto) 0.5 Eos # (Auto) 0.0 Baso # (Auto) 0.0 Absolute Gran (aut o) Nucleated RBC % (a uto) 0 Nucleated RBCs # 0.0 Sodium (136-145) mmol/L Potassium (3.5-5.1) mmol/L Chloride (98-107) mmol/L Carbon Dioxide (22-29) mmol/L Anion Gap (5-19) BUN (6-20) mg/dL Creatinine (0.5-0.9) mg/dL GFR Calculation (90-130) mL/min Glucose (65-115) mg/dL Calculated Osmolal ity (285-295) mOsm/k g Lactate (0.5-2.2) mmol/L Calcium (8.5-10.5) mg/dL Total Bilirubin (0.15-1.2) mg/dL AST (0-32) U/L ALT (0-33) U/L Alkaline Phosphata se (35-105) IU/L Ammonia 10 L (11-51) umol/L Total Protein (6.6-8.7) g/dL Albumin (3.5-5.2) g/dL Globulin (1.3-4.6) g/dL Lipase (13-60) U/L Urine Color Yellow (Yellow) Urine Appearance Sl hazy (CLEAR) Urine pH 5 (5-7) Ur Specific Gravit y 1.020 (1.005-1.030) Urine Protein Neg (Negative) Urine Glucose (UA) Norm (Normal) Urine Ketones Negative (Negative) Urine Blood 2+ H (Negative) Urine Nitrate Negative (Negative) Urine Bilirubin Neg (NEGATIVE) Urine Urobilinogen Norm (Negative) mg/dL Ur Leukocyte Marlys ase Negative (Negative) Urine RBC Rare (0-2) /hpf Urine WBC Rare (0-5) /hpf Ur Squamous Epith Cells 10-15 H (0-5) Amorphous Sediment Not Reportable Urine Bacteria 1+ H (NONE) Ethyl Alcohol (0-10) mg/dL Discharge Plan Discharge Patient Disposition: Home, Self-Care Clinical Impression: Alcohol use disorder, severe, dependence, Alcohol intoxication, Acute alcoholic gastritis Condition: Stable Prescriptions: New Carafate 1 gram tablet 1 gm PO Q6H 28 Days Qty: 112 RF: 0 No Action ferrous sulfate 325 mg (65 mg iron) tablet 325 mg PO BID Qty: 60 RF: 5 diclofenac potassium 50 mg tablet 50 mg PO BID Qty: 60 RF: 2 disulfiram [Antabuse] 250 mg tablet 250 mg PO BID Qty: 60 RF: 1 Geodon 40 mg capsule 40 mg PO BEDTIME Qty: 30 RF: 1 Thera 400 mcg tablet 1 tab PO DAILY 30 Days Qty: 30 RF: 1 ondansetron 4 mg tablet,disintegrating 4 mg PO Q8H PRN (Reason: nausea and vomiting) Qty: 14 RF: 0 folic acid 1 mg Tablet 1 mg PO DAILY 30 Days Qty: 30 RF: 1 thiamine mononitrate (vit B1) [Vitamin B-1 (mononitrate)] 100 mg Tablet 100 mg PO DAILY 30 Days Qty: 30 RF: 1 Discharge Orders: Discharge Order (Routine); Ordered 04/16/20 Ordered By: Aldo Jenkins Discharge Diet: Clear Liquid Discharge Activity: Increase activity as tolerated Patient Instructions: Alcohol Abuse, Gastritis (ED), Alcohol Intoxication (ED), Abuse of Alcohol (ED) Activity Restrictions/Additional Instructions: Do not drink alcohol. Carafate as needed recommend you resume your disulfiram and follow-up with outpatient treatment for alcohol abuse such as [facility] or [facility]. Discharge Date/Time: 04/16/20 09:21 Coding Level of Care Code ED Tax Examiner for Hannah Fwd Exam Comprehensive
[2020-04-16] MEDS: lactated ringers 1,000 ML 999 ML IV ×2 (06:26→08:09)
[2020-04-16] MEDS: ondansetron 2 mg/ML SDV 2 mL 4 MG IVP (06:39)
[2020-04-16] MEDS: morphine 4 mg/mL SDV 1 mL IVP ×2 (06:45→07:09)
--- NOTE | 2020-04-16 06:49 | CTR_ITS ---
PROCEDURE INFORMATION: Exam: CT Abdomen And Pelvis With Contrast Exam date and time: 04/16/2020 7:01 AM Age: 50 years old Clinical indication: Abdominal pain; Generalized; Prior surgery; Surgery type: Csection. Gb. Hernia. Gastric bypass; Patient HX: Periumbilical and left sided abd pain with n/v and constipation TECHNIQUE: Imaging protocol: Computed tomography of the abdomen and pelvis with intravenous contrast. Radiation optimization: All CT scans at this facility use at least one of these dose optimization techniques: automated exposure control; mA and/or kV adjustment per patient size (includes targeted exams where dose is matched to clinical indication); or iterative reconstruction. Contrast material: OMNI 300; Contrast volume: 95 ml; Contrast route: INTRAVENOUS (IV); COMPARISON: CT abdomen pelvis w con* [id number] 03/02/2020 12:22 PM RADIATION DOSE METRICS: Total DLP (mGy-cm): 1874.34 FINDINGS: Liver: Fatty liver. Gallbladder and bile ducts: Status post cholecystectomy. Pancreas: No ductal dilation. Spleen: No splenomegaly. Adrenals: No mass. Kidneys and ureters: No hydronephrosis. Stomach and bowel: Postsurgical changes of gastric bypass. Minimal scattered air-fluid levels in nondilated loops of small bowel in the lower abdomen and pelvis. Appendix: No evidence of appendicitis. Intraperitoneal space: No free air. No significant fluid collection. Vasculature: No abdominal aortic aneurysm. Lymph nodes: No enlarged lymph nodes. Bladder: Unremarkable as visualized. Reproductive: Unremarkable as visualized. Bones/joints: Unremarkable. No acute fracture. Soft tissues: Postsurgical changes of hernia repair. CT/CT abdomen pelvis w con* [id number] IMPRESSION: Minimal scattered air-fluid levels in nondilated small bowel loops in the lower abdomen and pelvis. Findings may represent ileus and/or focal enteritis in the appropriate clinical context. Radiation Dose CTDIVOL = (mGy): DLP = 1874.34 (mGy-cm)
[2020-04-16 06:58] LABS: Basophils % 0.4 %; Eosinophils % 0.8 %; Hematocrit 37.7 % (37.0-47.0); Hemoglobin 12.4 g/dL (11.5-15.3); Lymphocytes # 1.4 10^3/uL (0.8-4.8); Lymphocytes % 26.8 %; Mean Corpuscular HGB Conc 32.9 g/dL (30.0-36.0); Mean Corpuscular Hemoglobin 30.6 pg (28.0-34.0); Mean Corpuscular Volume 93.1 fL (81-99); Mean Platelet Volume 9.5 fL (7.4-10.4); Monocytes # 0.5 10^3/uL (0.2-0.9); Monocytes % 9.7 %; Neutrophils # 3.1 10^3/uL (1.8-7.7); Neutrophils % 61.9 %; Nucleated Red Blood Cells % 0 %; Platelet Count 164 10^3/cmm (130-400); Red Blood Count 4.05 10^6/uL (4.1-5.3); Red Cell Distribution Width 14.5 % (12.1-15.1); White Blood Count 5.1 10^3/uL (4.0-10.0)
[2020-04-16 07:00] VITALS: BP 139/88; PULSE 73; RESP 18; O2SAT 98
[2020-04-16 07:05] LABS: Ammonia 10 umol/L (11-51); Lactate (Lactic Acid level) 2.5 mmol/L (0.5-2.2)
[2020-04-16 07:06] LABS: Alanine Aminotransferase 18 U/L (0-33); Albumin Level 4.1 g/dL (3.5-5.2); Alcohol Level 132 mg/dL (0-10); Alkaline Phosphatase 70 IU/L (35-105); Anion Gap 19.8 (5-19); Blood Urea Nitrogen 8 mg/dL (6-20); Calcium 8.6 mg/dL (8.5-10.5); Carbon Dioxide 23 mmol/L (22-29); Chloride 99 mmol/L (98-107); Globulin 2.6 g/dL (1.3-4.6); Glomerular Filtration Rate 131.7 mL/min (90-130); Glucose 87 mg/dL (65-115); Lipase 22 U/L (13-60); Osmolality Calculated 281 mOsm/kg (285-295); Potassium 3.8 mmol/L (3.5-5.1); Sodium 138 mmol/L (136-145); Total Protein 6.7 g/dL (6.6-8.7)
[2020-04-16 07:09] VITALS: RESP 18
[2020-04-16 07:10] LABS: Aspartate Amino Transferase 28 U/L (0-32)
[2020-04-16 07:16] LABS: Add Urine Culture? No; Add Urine Microscopic? YES; Bacteria Urine 1+; Bilirubin Urine Neg (NEGATIVE); Blood Urine 2+ (Negative); Glucose Urine UA Norm (Normal); Ketones Urine Negative (Negative); Leukocyte Esterase Urine Negative (Negative); Nitrate Urine Negative (Negative); Protein Urine Neg (Negative); RBC Urine RARE /hpf (0-2); Urine Appearance SL Hazy (CLEAR); Urine Color Yellow (Yellow); Urobilinogen Urine Norm (Negative); WBC Urine RARE /hpf (0-5); pH Urine 5 (5-7)
[2020-04-16] MEDS: iohexol 300 mg/mL 100 mL Btl IV (07:28)
[2020-04-16 08:00] VITALS: BP 132/86; PULSE 80; RESP 18; O2SAT 99
[2020-04-16] MEDS: lidocaine 2% viscous 15 ML, aluminum-mag hydrox-simethicon 30 ML, sucralfate oral liq 1 GM PO (08:01)
[2020-04-16] MEDS: pantoprazole 40 mg SDV 80 MG IVP (08:09)
[2020-04-16 09:20] VITALS: BP 148/111; PULSE 91; RESP 16; O2SAT 99
== END 2020-04-16 09:21 | disposition home or self-care (01) ==
PROVIDERS: Emergency Provider Family Medicine
DX: K29.20 Alcoholic gastritis without bleeding (principal); F10.229 Alcohol dependence with intoxication, unspecified; Y90.6 Blood alcohol level of 120-199 mg/100 ml
CPT/HCPCS: 12345; 71045; 74177; 80053; 80307; 81001; 82140; 83605; 83690; 85025; 96365; 96367; 96375; 96376; 99283; 99284; C9113; J2270; J2405; Q9967

== ENCOUNTER → 2020-04-20 08:07 | Outpatient (BNVA) | payer MEDICAID, SELFPAY | PROVIDERS: Visit Provider Social Worker Clinical | DX: F43.12 Post-traumatic stress disorder, chronic (principal) | CPT/HCPCS: 90834 ==

== ENCOUNTER → 2020-04-29 07:56 | Outpatient (BNVA) | payer MEDICAID, SELFPAY | PROVIDERS: Visit Provider Nurse Practitioner Psychiatric/Mental Health | DX: F31.9 Bipolar disorder, unspecified (principal); F43.12 Post-traumatic stress disorder, chronic; F10.20 Alcohol dependence, uncomplicated; D50.9 Iron deficiency anemia, unspecified | CPT/HCPCS: 99213 ==

== ENCOUNTER → 2020-05-05 08:01 | Outpatient (BNVA) | payer MEDICAID, SELFPAY | PROVIDERS: Visit Provider Social Worker Clinical | DX: F43.12 Post-traumatic stress disorder, chronic (principal); F10.20 Alcohol dependence, uncomplicated | CPT/HCPCS: 90832; 90834 ==

== ENCOUNTER → 2020-05-10 10:37 | Outpatient (BNVA) | payer MEDICAID, SELFPAY | PROVIDERS: Visit Provider Nurse Practitioner | DX: S92.414A Nondisplaced fracture of proximal phalanx of right great toe, initial encounter for closed fracture (principal); W01.10XA Fall on same level from slipping, tripping and stumbling with subsequent striking against unspecified object, initial encounter; Z68.39 Body mass index [BMI] 39.0-39.9, adult | CPT/HCPCS: 73630 ==

== ENCOUNTER → 2020-06-17 07:16 | Outpatient (BNVA) | payer MEDICAID, SELFPAY | PROVIDERS: Visit Provider Social Worker Clinical | DX: F31.9 Bipolar disorder, unspecified (principal); F43.12 Post-traumatic stress disorder, chronic; F10.20 Alcohol dependence, uncomplicated | CPT/HCPCS: 90832 ==

== ENCOUNTER → 2020-06-24 07:17 | Outpatient (BNVA) | payer MEDICAID, SELFPAY | PROVIDERS: Visit Provider Nurse Practitioner Psychiatric/Mental Health | DX: F31.9 Bipolar disorder, unspecified (principal); F10.20 Alcohol dependence, uncomplicated; F43.12 Post-traumatic stress disorder, chronic; D50.9 Iron deficiency anemia, unspecified; F41.1 Generalized anxiety disorder | CPT/HCPCS: G0463 ==

== ENCOUNTER → 2020-06-30 11:58 | Outpatient (BNVA) | payer MEDICAID, SELFPAY | PROVIDERS: Visit Provider Family Medicine Adult Medicine | DX: D50.9 Iron deficiency anemia, unspecified (principal); M17.11 Unilateral primary osteoarthritis, right knee; F10.20 Alcohol dependence, uncomplicated; I10 Essential (primary) hypertension; S92.401D Displaced unspecified fracture of right great toe, subsequent encounter for fracture with routine healing; Z86.2 Personal history of diseases of the blood and blood-forming organs and certain disorders involving the immune mechanism; W22.8XXD Striking against or struck by other objects, subsequent encounter | CPT/HCPCS: 80053; 85007; 85027; 86140 ==

== ENCOUNTER → 2020-07-07 08:35 | Outpatient (BNVA) | payer MEDICAID, SELFPAY | PROVIDERS: Visit Provider Social Worker Clinical | DX: F43.12 Post-traumatic stress disorder, chronic (principal); F31.9 Bipolar disorder, unspecified; F10.20 Alcohol dependence, uncomplicated | CPT/HCPCS: 90832 ==

== ENCOUNTER 2020-07-26 12:57 | Emergency (ER) | payer MEDICAID, SELFPAY ==
[2020-07-26 12:58] VITALS: BP 132/77; PULSE 81; RESP 18; O2SAT 100; BMI 38.0
--- NOTE | 2020-07-26 13:06 | W.ED.ALCOHOL ---
HPI - Alcohol General: Chief Complaint: Psychiatric Symptoms Stated Complaint: INTOXICATION Time Seen by Provider: 07/26/20 13:01 History of Present Illness: HPI narrative: 50-year-old female brought in with acute alcohol intoxication. EMS reports that patient has history of bipolar and PTSD. That she has been noncompliant with her medications until the last 4 days when she has been taking all her medications and has been drinking vodka daily and heavily. Patient has had multiple falls with abrasions over her face. Patient denies wanting to hurt her self. Patient just reports that she is okay patient does not want to provide any further HPI Associated symptoms: Reports depression; Deny suicidal ideation Review of Systems General: Reports: Other (Patient limited on what she will answer, just states that she is okay ) Const: Reports: other (None reported) Eyes: Reports: other (None reported) ENMT: Reports: other (None report) Card: Reports: other (None reported) Resp: Reports: other (None reported) GI: Reports: other (None report) Skin/Breast: Reports: other (Multiple abrasions over her face and forehead) Neuro: Reports: other (None reported) Psych: Reports: depression; Denies: suicidal ideation or homicidal ideation PFSH ED PFSH: Medical History Alcohol dependence Has been prescribed antabuse Arthritis of right knee Bipolar disorder See comments below. Chronic post-traumatic stress disorder (PTSD) Depressive disorder Hx of cholecystitis Iron deficiency anemia Recurrent pancreatitis Suicidal thoughts in the past Surgical History History of Hx of gastric bypass Hx of hernia repair Hx of tubal ligation Hx of unilateral salpingectomy Right Family History Other Diabetes Heart disease Social History Smoking and tobacco status: never smoked Alcohol intake: current History of recent travel: No Current gender identity: Female Female Reproductive History: Date of last menstrual period: 04/09/20 Physical Exam Const: GENERAL APPEARANCE: disheveled and odor of alcohol detected NUTRITIONAL APPEARANCE: obese HENMT: HEAD & SCALP: abrasion and other (Multiple superficial abrasions over face and scalp) Resp: COMMON NORMALS: normal respiratory effort, No use of accessory muscles and clear to auscultation bilaterally AUSCULTATION: clear to auscultation bilaterally Cardio: COMMON NORMALS: regular rate and regular rhythm RATE: regular rate RHYTHM: regular rhythm GI: COMMON NORMALS: Soft to palpation and non-tender PALPATION: Yes Soft to palpation Extremity: COMMON NORMALS: full ROM and capillary refill normal Neuro: COMMON NORMALS: no focal motor deficits GAIT: Yes Normal gait present Psych: COMMON NORMALS: speech normal APPEARANCE: Yes unkempt SPEECH: Yes normal speech Course Vital Signs: Vital signs: Vital Signs Pulse Rate 81 07/26/20 12:58 Respiratory Rate 18 07/26/20 12:58 Blood Pressure 132/77 07/26/20 12:58 Pulse Oximetry 100 07/26/20 12:58 MDM - Alcohol MDM Narrative: Medical decision making narrative: Patient refused any IV fluids or treatment. Patient was alert. Patient was able to ambulate on her own. Patient has a history of alcohol abuse. She left AGAINST MEDICAL ADVICE stating she just wants to go home. Patient states she is okay and understands her risk. Medical Records: Attestation: I reviewed the patient's medical records. Lab Data: Attestation: I reviewed the patient's lab results. Labs: Lab Results 07/26/20 07/26/20 07/26/20 Range/Units 12:40 12:40 14:05 WBC 7.9 (4.0-10.0) 10^3/ uL RBC 4.65 (4.1-5.3) 10^6/u L Hgb 14.5 (11.5-15.3) g/dL Hct 43.7 (37.0-47.0) % MCV 94.0 (81-99) fL MCH 31.2 (28.0-34.0) pg MCHC 33.2 (30.0-36.0) g/dL RDW 12.7 (12.1-15.1) % Plt Count 226 (130-400) 10^3/c mm MPV 9.9 (7.4-10.4) fL Neut % (Auto) 75.0 % Lymph % (Auto) 18.3 % [place] % (Auto) 6.5 % Eos % (Auto) 0.0 % Baso % (Auto) 0.1 % Neut # (Auto) 5.91 (1.8-7.7) 10^3/u L Lymph # (Auto) 1.4 (0.8-4.8) 10^3/u L [place] # (Auto) 0.5 (0.2-0.9) 10^3/u L Eos # (Auto) 0.0 (0.0-0.8) 10^3/u L Baso # (Auto) 0.0 (0.0-0.1) 10^3/u L Nucleated RBC % (a uto) 0 % Nucleated RBCs # 0.0 /100WBC Sodium 136 (136-145) mmol/L Potassium 4.0 (3.5-5.1) mmol/L Chloride 96 L (98-107) mmol/L Carbon Dioxide 18 L (22-29) mmol/L Anion Gap 26.0 H (5-19) BUN 10 (6-20) mg/dL Creatinine 0.6 (0.5-0.9) mg/dL GFR Calculation 106.7 (90-130) mL/min Glucose 113 (65-115) mg/dL Calculated Osmolal ity 282 L (285-295) mOsm/k g Calcium 9.0 (8.5-10.5) mg/dL Total Bilirubin 1.2 (0.15-1.2) mg/dL AST 67 H (0-32) U/L ALT 77 H (0-33) U/L Alkaline Phosphata se 126 H (35-105) IU/L Total Protein 7.1 (6.6-8.7) g/dL Albumin 4.1 (3.5-5.2) g/dL Globulin 3.0 (1.3-4.6) g/dL Urine Color Straw (Yellow) Urine Appearance Clear (CLEAR) Urine pH 6 (5-7) Ur Specific Gravit y 1.005 (1.005-1.030) Urine Protein Neg (Negative) Urine Glucose (UA) Trace H (Normal) Urine Ketones Negative (Negative) Urine Blood Neg (Negative) Urine Nitrate Negative (Negative) Urine Bilirubin Neg (Negative) Urine Urobilinogen Norm (Negative) mg/dL Ur Leukocyte Marlys ase Negative (Negative) Salicylates < 0.3 L (3-10) mg/dL Urine Opiates Scre en (Negative) ng/mL Acetaminophen < 5.0 L (10-30) ug/mL Ur Barbiturates Sc reen (Negative) ng/mL Ur Phencyclidine S crn (Negative) ng/mL Ur Amphetamines Sc reen (Negative) ng/mL U Benzodiazepines Scrn (Negative) ng/mL Urine Cocaine Scre en (Negative) ng/mL U Marijuana (THC) Screen (Negative) ng/mL Ethyl Alcohol 341 H* (0-10) mg/dL 10/20 Range/Units 14:05 WBC (4.0-10.0) 10^3/ uL RBC (4.1-5.3) 10^6/u L Hgb (11.5-15.3) g/dL Hct (37.0-47.0) % MCV (81-99) fL MCH (28.0-34.0) pg MCHC (30.0-36.0) g/dL RDW (12.1-15.1) % Plt Count (130-400) 10^3/c mm MPV (7.4-10.4) fL Neut % (Auto) % Lymph % (Auto) % [place] % (Auto) % Eos % (Auto) % Baso % (Auto) % Neut # (Auto) (1.8-7.7) 10^3/u L Lymph # (Auto) (0.8-4.8) 10^3/u L [place] # (Auto) (0.2-0.9) 10^3/u L Eos # (Auto) (0.0-0.8) 10^3/u L Baso # (Auto) (0.0-0.1) 10^3/u L Nucleated RBC % (a uto) % Nucleated RBCs # /100WBC Sodium (136-145) mmol/L Potassium (3.5-5.1) mmol/L Chloride (98-107) mmol/L Carbon Dioxide (22-29) mmol/L Anion Gap (5-19) BUN (6-20) mg/dL Creatinine (0.5-0.9) mg/dL GFR Calculation (90-130) mL/min Glucose (65-115) mg/dL Calculated Osmolal ity (285-295) mOsm/k g Calcium (8.5-10.5) mg/dL Total Bilirubin (0.15-1.2) mg/dL AST (0-32) U/L ALT (0-33) U/L Alkaline Phosphata se (35-105) IU/L Total Protein (6.6-8.7) g/dL Albumin (3.5-5.2) g/dL Globulin (1.3-4.6) g/dL Urine Color (Yellow) Urine Appearance (CLEAR) Urine pH (5-7) Ur Specific Gravit y (1.005-1.030) Urine Protein (Negative) Urine Glucose (UA) (Normal) Urine Ketones (Negative) Urine Blood (Negative) Urine Nitrate (Negative) Urine Bilirubin (Negative) Urine Urobilinogen (Negative) mg/dL Ur Leukocyte Marlys ase (Negative) Salicylates (3-10) mg/dL Urine Opiates Scre en Negative (Negative) ng/mL Acetaminophen (10-30) ug/mL Ur Barbiturates Sc reen Negative (Negative) ng/mL Ur Phencyclidine S crn Negative (Negative) ng/mL Ur Amphetamines Sc reen Negative (Negative) ng/mL U Benzodiazepines Scrn Negative (Negative) ng/mL Urine Cocaine Scre en Negative (Negative) ng/mL U Marijuana (THC) Screen Negative (Negative) ng/mL Ethyl Alcohol (0-10) mg/dL Discharge Plan Discharge Patient Disposition: Left Against Medical Advice Clinical Impression: Alcohol use disorder, severe, dependence, Abrasion of face without infection Acute alcohol intoxication with alcoholism Qualifiers: Complication of substance-induced condition: uncomplicated Qualified Code(s): F10.220 - Alcohol dependence with intoxication, uncomplicated Condition: Stable Prescriptions: No Action Geodon 40 mg capsule 40 mg PO BEDTIME Qty: 30 RF: 1 Thera 400 mcg tablet 1 tab PO DAILY 30 Days Qty: 30 RF: 12 ferrous sulfate 325 mg (65 mg iron) tablet 325 mg PO BID Qty: 60 RF: 12 disulfiram [Antabuse] 250 mg tablet 250 mg PO BID Qty: 60 RF: 12 diclofenac potassium 50 mg tablet 50 mg PO BID Qty: 60 RF: 12 Discharge Diet: Advance as tolerated Discharge Activity: Increase activity as tolerated Discharge Date/Time: 07/26/20 14:34 Coding Level of Care Code ED Still Cleaner for g Fwd Exam Comprehensive
[2020-07-26 13:24] LABS: Basophils % 0.1 %; Hematocrit 43.7 % (37.0-47.0); Hemoglobin 14.5 g/dL (11.5-15.3); Lymphocytes # 1.4 10^3/uL (0.8-4.8); Lymphocytes % 18.3 %; Mean Corpuscular HGB Conc 33.2 g/dL (30.0-36.0); Mean Corpuscular Hemoglobin 31.2 pg (28.0-34.0); Mean Platelet Volume 9.9 fL (7.4-10.4); Monocytes # 0.5 10^3/uL (0.2-0.9); Monocytes % 6.5 %; Neutrophils # 5.91 10^3/uL (1.8-7.7); Nucleated Red Blood Cells % 0 %; Platelet Count 226 10^3/cmm (130-400); Red Blood Count 4.65 10^6/uL (4.1-5.3); Red Cell Distribution Width 12.7 % (12.1-15.1); White Blood Count 7.9 10^3/uL (4.0-10.0)
[2020-07-26 14:00] LABS: Alanine Aminotransferase 77 U/L (0-33); Albumin Level 4.1 g/dL (3.5-5.2); Alkaline Phosphatase 126 IU/L (35-105); Aspartate Amino Transferase 67 U/L (0-32); Blood Urea Nitrogen 10 mg/dL (6-20); Carbon Dioxide 18 mmol/L (22-29); Chloride 96 mmol/L (98-107); Creatinine Clr Calc Pharmacy 151.5111; Glomerular Filtration Rate 106.7 mL/min (90-130); Glucose 113 mg/dL (65-115); Osmolality Calculated 282 mOsm/kg (285-295); Sodium 136 mmol/L (136-145); Total Bilirubin 1.2 mg/dL (0.15-1.2); Total Protein 7.1 g/dL (6.6-8.7)
[2020-07-26 14:13] LABS: Acetaminophen < 5.0 ug/mL (10-30); Salicylate < 0.3 mg/dL (3-10)
[2020-07-26 14:14] LABS: Alcohol Level 341 mg/dL (0-10)
[2020-07-26 14:15] LABS: Add Urine Microscopic? NO
[2020-07-26 14:32] LABS: Bilirubin Urine Neg (Negative); Blood Urine Neg (Negative); Glucose Urine UA Trace (Normal); Ketones Urine Negative (Negative); Leukocyte Esterase Urine Negative (Negative); Nitrate Urine Negative (Negative); Protein Urine Neg (Negative); Specific Gravity, Urine 1.005 (1.005-1.030); Urine Appearance Clear (CLEAR); Urine Color Straw (Yellow); Urobilinogen Urine Norm (Negative); pH Urine 6 (5-7)
[2020-07-26 14:44] LABS: Amphetamines Screen Urine Negative (Negative); Barbiturates Screen Urine Negative (Negative); Benzodiazepines Screen Urine Negative (Negative); Cocaine Screen Urine Negative (Negative); Opiate Screen Urine Negative (Negative); PCP Screen Urine Negative (Negative); THC Screen Urine Negative (Negative)
[2020-07-26 22:08] LABS: HCG Qualitative Urine. Negative (Negative)
== END 2020-07-26 14:34 | disposition left against medical advice (07) ==
PROVIDERS: Emergency Provider Student in an Organized Health Care Education/Training Program
DX: F10.220 Alcohol dependence with intoxication, uncomplicated (principal); S00.81XA Abrasion of other part of head, initial encounter; Z53.21 Procedure and treatment not carried out due to patient leaving prior to being seen by health care provider; W19.XXXA Unspecified fall, initial encounter; Y90.8 Blood alcohol level of 240 mg/100 ml or more
CPT/HCPCS: 12345; 80053; 80306; 80307; 81003; 81025; 85025; 99282

== ENCOUNTER → 2020-07-28 08:45 | Outpatient (BNVA) | payer MEDICAID, SELFPAY | PROVIDERS: Visit Provider Social Worker Clinical | DX: F43.12 Post-traumatic stress disorder, chronic (principal); F31.9 Bipolar disorder, unspecified; F10.20 Alcohol dependence, uncomplicated | CPT/HCPCS: 90834 ==

== ENCOUNTER 2020-08-07 02:53 | Emergency (ER) | payer MEDICAID, SELFPAY ==
[2020-08-07 02:54] VITALS: BP 157/119; PULSE 74; RESP 18; TEMP 36.4; O2SAT 97; BMI 39.5
--- NOTE | 2020-08-07 03:07 | CTR_ITS ---
PROCEDURE INFORMATION: Exam: CT Abdomen And Pelvis With Contrast Exam date and time: 08/07/2020 3:09 AM Age: 50 years old Clinical indication: Abdominal pain; Generalized; Prior surgery; Surgery type: , cholecystectomy, hernia repair, gastric bypass, btl; Additional info: Abd pain TECHNIQUE: Imaging protocol: Computed tomography of the abdomen and pelvis with intravenous contrast. Radiation optimization: All CT scans at this facility use at least one of these dose optimization techniques: automated exposure control; mA and/or kV adjustment per patient size (includes targeted exams where dose is matched to clinical indication); or iterative reconstruction. Contrast material: OMNI 300; Contrast volume: 95 ml; Contrast route: INTRAVENOUS (IV); COMPARISON: CT abdomen pelvis w con* [id number] 04/16/2020 7:20 AM RADIATION DOSE METRICS: Total DLP (mGy-cm): 1804.36 FINDINGS: Lungs: The lung bases are clear. Liver: There is mild fatty infiltration of the liver. Gallbladder and bile ducts: Prior cholecystectomy, no significant biliary tree dilation. Pancreas: Unremarkable. Spleen: Unremarkable. Adrenals: Unremarkable. Kidneys and ureters: Unremarkable. Stomach and bowel: Evidence for prior gastric bypass surgery. There are no CT findings to strongly suggest diverticulitis. Appendix: The appendix is possibly identified, and there are no suspicious findings for appendicitis. No pericecal inflammatory changes are seen. Intraperitoneal space: No free air, ascites, or significant bowel distention. Vasculature: No evidence for abdominal aortic aneurysm. Lymph nodes: No retroperitoneal adenopathy. Urinary bladder: Unremarkable as visualized. Reproductive: Suspect a 5 cm right sided uterine fibroid, similar to prior exam. The left ovary contains a 16 mm dominant follicle versus very small cyst. Significance unlikely due to small size. No cul-de-sac fluid. Bones/joints: Mild to moderate degenerative changes in the lumbar spine, similar to prior exam. Soft tissues: No significant acute finding. CT/CT abdomen pelvis w con* [id number] IMPRESSION: 1. No evidence for appendicitis or diverticulitis. 2. No free air or significant bowel distention. No evidence to strongly suggest bowel obstruction. 3. Suspected uterine fibroid, details above. 4. The left ovary contains a 16 mm dominant follicle versus very small cyst. Significance unlikely due to small size. No cul-de-sac fluid. 5. Other findings discussed above. Radiation Dose CTDIVOL = (mGy): DLP = 1804.36 (mGy-cm)
[2020-08-07] MEDS: sodium chloride 0.9% 1,000 ML 999 ML IV (03:14)
[2020-08-07 03:21] LABS: Basophils % 0.2 %; Eosinophils # 0.1 10^3/uL (0.0-0.8); Eosinophils % 1.8 %; Hematocrit 39.4 % (37.0-47.0); Lymphocytes # 1.6 10^3/uL (0.8-4.8); Mean Corpuscular Hemoglobin 31.5 pg (28.0-34.0); Mean Corpuscular Volume 95.4 fL (81-99); Mean Platelet Volume 10.5 fL (7.4-10.4); Monocytes # 0.8 10^3/uL (0.2-0.9); Monocytes % 12.5 %; Neutrophils # 3.77 10^3/uL (1.8-7.7); Neutrophils % 60.2 %; Nucleated Red Blood Cells % 0 %; Platelet Count 113 10^3/cmm (130-400); Red Blood Count 4.13 10^6/uL (4.1-5.3); Red Cell Distribution Width 12.6 % (12.1-15.1); White Blood Count 6.3 10^3/uL (4.0-10.0)
[2020-08-07 03:26] LABS: HCG, Serum Qual Negative (Negative)
[2020-08-07 03:30] LABS: Add Urine Microscopic? YES; Bilirubin Urine 1+ (Negative); Blood Urine 3+ (Negative); Glucose Urine UA Norm (Normal); Ketones Urine Negative (Negative); Leukocyte Esterase Urine Negative (Negative); Nitrate Urine Negative (Negative); Protein Urine Neg (Negative); Urine Appearance Clear (CLEAR); Urine Color Yellow (Yellow); Urobilinogen Urine 1 mg/dL (Negative); pH Urine 5 (5-7)
[2020-08-07 03:37] LABS: Alanine Aminotransferase 24 U/L (0-33); Albumin Level 3.8 g/dL (3.5-5.2); Alkaline Phosphatase 88 IU/L (35-105); Anion Gap 15.2 (5-19); Aspartate Amino Transferase 21 U/L (0-32); Blood Urea Nitrogen 11 mg/dL (6-20); C Reactive Protein 0.7 mg/L (0.0-4.9); Calcium 8.4 mg/dL (8.5-10.5); Carbon Dioxide 21 mmol/L (22-29); Chloride 104 mmol/L (98-107); Creatine Phosphokinase 61 U/L (26-192); Globulin 2.7 g/dL (1.3-4.6); Glomerular Filtration Rate 106.7 mL/min (90-130); Glucose 115 mg/dL (65-115); Lipase 37 U/L (13-60); Osmolality Calculated 284 mOsm/kg (285-295); Potassium 3.2 mmol/L (3.5-5.1); Sodium 137 mmol/L (136-145); Total Bilirubin 0.9 mg/dL (0.15-1.2); Total Protein 6.5 g/dL (6.6-8.7)
--- NOTE | 2020-08-07 03:38 | W.ED.GENADLT ---
HPI - General Adult General: Chief complaint: General Medical Stated complaint: abd pain Time Seen by Provider: 08/07/20 02:55 History of Present Illness: HPI narrative: 50-year-old female presenting with periumbilical and right-sided belly pain. It started earlier tonight. She had some nausea. No vomiting. No blood in the stool. She evidently has a history of pancreatitis . She has had multiple belly surgeries. No fever. No diarrhea. Onset (ago): hour(s) Location: abdomen Radiation: back and other (Chest) Severity: moderate Quality: stabbing and aching Relieving factors: none Associated symptoms: Reports chest pain and nausea; Deny cough, dyspnea, fevers/chills, headache(s), rash, palpitations or vomiting Review of Systems Const: Denies: fever(s) or chills Eyes: Denies: change in vision or blurry vision ENMT: Denies: odynophagia, swelling of lips/tongue, dental pain, post nasal drip or sinus pain Card: Reports: chest pain; Denies: palpitations or irregular heart rhythm Resp: Denies: dyspnea, productive cough, non-productive cough or wheezing GI: Reports: nausea; Denies: vomiting : Denies: dysuria or hematuria Musc: Reports: back pain; Denies: neck pain or joint redness Skin/Breast: Denies: rash, pruritus or erythema Neuro: Denies: headache(s), dizziness or vertigo Psych: Denies: anxiety [facility] ED PFSH: Medical History (Updated 08/07/20 @ 05:11 by Manish Davison DO) Alcohol dependence Has been prescribed antabuse Arthritis of right knee Bipolar disorder See comments below. Chronic post-traumatic stress disorder (PTSD) Depressive disorder Hx of cholecystitis Iron deficiency anemia Recurrent pancreatitis Suicidal thoughts in the past Surgical History History of Hx of gastric bypass Hx of hernia repair Hx of tubal ligation Hx of unilateral salpingectomy Right Family History Other Diabetes Heart disease Social History Smoking and tobacco status: never smoked Alcohol intake: current History of recent travel: No Current gender identity: Female Female Reproductive History: Date of last menstrual period: 04/09/20 Physical Exam Const: GENERAL APPEARANCE: well developed ORIENTATION/CONSCIOUSNESS: Yes oriented to person, Yes oriented to place and Yes oriented to time HENMT: COMMON NORMALS: normocephalic, external ears normal and Normal external nose present HEAD & SCALP: normocephalic FACE & SINUS: normal facial exam NOSE: Normal external nose present and No nasal discharge present EXTERNAL EAR: Yes external ears normal Eye: COMMON NORMALS: Equal, round and reactive pupils present, EOMs intact bilaterally and conjunctivae normal EYELID: eyelids normal CONJUNCTIVA: Yes conjunctivae normal PUPIL: Yes Equal, round and reactive pupils present Neck/C-Spine: GENERAL: No tracheal deviation Chest: COMMONS NORMALS: normal inspection of the chest CHEST: No tenderness Resp: COMMON NORMALS: clear to auscultation bilaterally EFFORT & INSPECTION: No tachypneic, No respiratory distress, No retractions, No uses accessory muscles and No tracheal deviation AUSCULTATION: clear to auscultation bilaterally, no rhonchi, no wheezes and lung sounds not diminished Cardio: COMMON NORMALS: regular rate and regular rhythm RATE: regular rate RHYTHM: regular rhythm HEART SOUNDS: no murmurs PERIPHERAL PULSES: radial pulses present GI: INSPECTION: No abdominal distension AUSCULTATION: No Hyperactive bowel sounds present and No Hypoactive bowel sounds present PALPATION: Yes Tenderness to palpation present (GI) Details: RUQ, No Guarding due to palpation present (GI) and No Rigid due to palpation PERCUSSION: no dullness to percussion and no tympanic to percussion Neuro: SENSORIUM/ORIENTATION: Yes oriented to person, Yes oriented to place and Yes oriented to time Psych: COMMON NORMALS: mental status grossly normal Skin: COMMON NORMALS: no rashes or lesions noted GENERAL SKIN EXAM: no rashes or lesions noted Course Vital Signs: Vital signs: Vital Signs Temperature 97.5 F L 08/07/20 02:54 Pulse Rate 78 08/07/20 05:19 Respiratory Rate 16 08/07/20 05:19 Blood Pressure 141/84 08/07/20 05:19 Pulse Oximetry 99 08/07/20 05:19 MDM - General Adult MDM Narrative: Medical decision making narrative: White blood cell count 6.3. Potassium is mildly low. Pain is improved. CT is negative. Lab Data: Labs: Lab Results 08/07/20 08/07/20 08/07/20 Range/Units 03:05 03:05 03:05 WBC 6.3 (4.0-10.0) 10^3/ uL RBC 4.13 (4.1-5.3) 10^6/u L Hgb 13.0 (11.5-15.3) g/dL Hct 39.4 (37.0-47.0) % MCV 95.4 (81-99) fL MCH 31.5 (28.0-34.0) pg MCHC 33.0 (30.0-36.0) g/dL RDW 12.6 (12.1-15.1) % Plt Count 113 L (130-400) 10^3/c mm MPV 10.5 H (7.4-10.4) fL Neut % (Auto) 60.2 % Lymph % (Auto) 25.0 % [place] % (Auto) 12.5 % Eos % (Auto) 1.8 % Baso % (Auto) 0.2 % Neut # (Auto) 3.77 (1.8-7.7) 10^3/u L Lymph # (Auto) 1.6 (0.8-4.8) 10^3/u L [place] # (Auto) 0.8 (0.2-0.9) 10^3/u L Eos # (Auto) 0.1 (0.0-0.8) 10^3/u L Baso # (Auto) 0.0 (0.0-0.1) 10^3/u L Nucleated RBC % (a uto) 0 % Nucleated RBCs # 0.0 /100WBC Sodium 137 (136-145) mmol/L Potassium 3.2 L (3.5-5.1) mmol/L Chloride 104 (98-107) mmol/L Carbon Dioxide 21 L (22-29) mmol/L Anion Gap 15.2 (5-19) BUN 11 (6-20) mg/dL Creatinine 0.6 (0.5-0.9) mg/dL GFR Calculation 106.7 (90-130) mL/min Glucose 115 (65-115) mg/dL Calculated Osmolal ity 284 L (285-295) mOsm/k g Calcium 8.4 L (8.5-10.5) mg/dL Total Bilirubin 0.9 (0.15-1.2) mg/dL AST 21 (0-32) U/L ALT 24 (0-33) U/L Alkaline Phosphata se 88 (35-105) IU/L Creatine Kinase 61 (26-192) U/L C-Reactive Protein 0.7 (0.0-4.9) mg/L Total Protein 6.5 L (6.6-8.7) g/dL Albumin 3.8 (3.5-5.2) g/dL Globulin 2.7 (1.3-4.6) g/dL Lipase 37 (13-60) U/L HCG, Qual Negative (Negative) Urine Color (Yellow) Urine Appearance (CLEAR) Urine pH (5-7) Ur Specific Gravit y (1.005-1.030) Urine Protein (Negative) Urine Glucose (UA) (Normal) Urine Ketones (Negative) Urine Blood (Negative) Urine Nitrate (Negative) Urine Bilirubin (Negative) Urine Urobilinogen (Negative) mg/dL Ur Leukocyte Marlys ase (Negative) Urine RBC (0-2) /hpf Urine WBC (0-5) /hpf Ur Squamous Epith Cells (0-5) /hpf Amorphous Sediment Urine Bacteria (NONE) /hpf 08/07/20 08/07/20 Range/Units 03:16 03:16 WBC (4.0-10.0) 10^3/ uL RBC (4.1-5.3) 10^6/u L Hgb (11.5-15.3) g/dL Hct (37.0-47.0) % MCV (81-99) fL MCH (28.0-34.0) pg MCHC (30.0-36.0) g/dL RDW (12.1-15.1) % Plt Count (130-400) 10^3/c mm MPV (7.4-10.4) fL Neut % (Auto) % Lymph % (Auto) % [place] % (Auto) % Eos % (Auto) % Baso % (Auto) % Neut # (Auto) (1.8-7.7) 10^3/u L Lymph # (Auto) (0.8-4.8) 10^3/u L [place] # (Auto) (0.2-0.9) 10^3/u L Eos # (Auto) (0.0-0.8) 10^3/u L Baso # (Auto) (0.0-0.1) 10^3/u L Nucleated RBC % (a uto) % Nucleated RBCs # /100WBC Sodium (136-145) mmol/L Potassium (3.5-5.1) mmol/L Chloride (98-107) mmol/L Carbon Dioxide (22-29) mmol/L Anion Gap (5-19) BUN (6-20) mg/dL Creatinine (0.5-0.9) mg/dL GFR Calculation (90-130) mL/min Glucose (65-115) mg/dL Calculated Osmolal ity (285-295) mOsm/k g Calcium (8.5-10.5) mg/dL Total Bilirubin (0.15-1.2) mg/dL AST (0-32) U/L ALT (0-33) U/L Alkaline Phosphata se (35-105) IU/L Creatine Kinase (26-192) U/L C-Reactive Protein (0.0-4.9) mg/L Total Protein (6.6-8.7) g/dL Albumin (3.5-5.2) g/dL Globulin (1.3-4.6) g/dL Lipase (13-60) U/L HCG, Qual Negative (Negative) Urine Color Yellow (Yellow) Urine Appearance Clear (CLEAR) Urine pH 5 (5-7) Ur Specific Gravit y 1.010 (1.005-1.030) Urine Protein Neg (Negative) Urine Glucose (UA) Norm (Normal) Urine Ketones Negative (Negative) Urine Blood 3+ H (Negative) Urine Nitrate Negative (Negative) Urine Bilirubin 1+ H (Negative) Urine Urobilinogen 1 H (Negative) mg/dL Ur Leukocyte Marlys ase Negative (Negative) Urine RBC 0-4 H (0-2) /hpf Urine WBC 0-4 H (0-5) /hpf Ur Squamous Epith Cells 5-10 H (0-5) /hpf Amorphous Sediment Not Reportable Urine Bacteria 1+ H (NONE) /hpf Discharge Plan Discharge Patient Disposition: Home Clinical Impression: Abdominal pain Qualifiers: Abdominal location: generalized Qualified Code(s): R10.84 - Generalized abdominal pain Condition: Stable Prescriptions: New tramadol 100 mg tablet 100 mg PO Q6H PRN (Reason: pain) Qty: 10 RF: 0 Zofran 4 mg tablet 4 mg PO Q6H PRN (Reason: nausea and vomiting) Qty: 7 RF: 0 No Action Geodon 40 mg capsule 40 mg PO BEDTIME Qty: 30 RF: 1 Thera 400 mcg tablet 1 tab PO DAILY 30 Days Qty: 30 RF: 12 ferrous sulfate 325 mg (65 mg iron) tablet 325 mg PO BID Qty: 60 RF: 12 disulfiram [Antabuse] 250 mg tablet 250 mg PO BID Qty: 60 RF: 12 diclofenac potassium 50 mg tablet 50 mg PO BID Qty: 60 RF: 12 Discharge Orders: Discharge Order (Routine); Ordered 08/07/20 Ordered By: Manish Davison Discharge Diet: Advance as tolerated Discharge Activity: Increase activity as tolerated Patient Instructions: Abdominal Pain (ED) Activity Restrictions/Additional Instructions: Return for vomiting liquids or medications, fever greater than 100, other concerning symptoms Discharge Date/Time: 08/07/20 05:20 Coding Level of Care Code ED Pipe Coremaker for Hannah Fulton
[2020-08-07 03:40] LABS: Add Urine Culture? No; Bacteria Urine 1+ /hpf; RBC Urine 0-4 /hpf (0-2); WBC Urine 0-4 /hpf (0-5)
[2020-08-07 03:42] LABS: HCG Qualitative Urine. Negative (Negative)
[2020-08-07] MEDS: iohexol 300 mg/mL 100 mL Btl IV (04:09)
[2020-08-07 05:19] VITALS: BP 141/84; PULSE 78; RESP 16; O2SAT 99
== END 2020-08-07 05:20 | disposition home or self-care (01) ==
PROVIDERS: Emergency Provider Emergency Medicine
DX: R10.84 Generalized abdominal pain (principal)
CPT/HCPCS: 12345; 74177; 80053; 81001; 81025; 82550; 83690; 84703; 85025; 86140; 96360; 99282; 99283; J7030; Q9967

== ENCOUNTER → 2020-08-16 10:07 | Outpatient (BNVA) | payer MEDICAID, SELFPAY | PROVIDERS: Visit Provider Family Medicine Adult Medicine | DX: I10 Essential (primary) hypertension (principal); D50.8 Other iron deficiency anemias; E66.01 Morbid (severe) obesity due to excess calories; M17.11 Unilateral primary osteoarthritis, right knee; F10.20 Alcohol dependence, uncomplicated; F31.9 Bipolar disorder, unspecified | CPT/HCPCS: 83036; 84443 ==

== ENCOUNTER → 2020-08-18 08:13 | Outpatient (BNVA) | payer MEDICAID, SELFPAY | PROVIDERS: Visit Provider Social Worker Clinical | DX: F43.12 Post-traumatic stress disorder, chronic (principal); F10.20 Alcohol dependence, uncomplicated; F31.9 Bipolar disorder, unspecified | CPT/HCPCS: 90832 ==

== ENCOUNTER → 2020-08-26 07:39 | Outpatient (BNVA) | payer MEDICAID, SELFPAY | PROVIDERS: Visit Provider Nurse Practitioner Psychiatric/Mental Health | DX: F31.9 Bipolar disorder, unspecified (principal); F43.12 Post-traumatic stress disorder, chronic; F10.20 Alcohol dependence, uncomplicated | CPT/HCPCS: 99212 ==

== ENCOUNTER → 2020-09-09 08:25 | Outpatient (BNVA) | payer MEDICAID, SELFPAY | PROVIDERS: Visit Provider Social Worker Clinical | DX: F43.12 Post-traumatic stress disorder, chronic (principal); F10.20 Alcohol dependence, uncomplicated; F31.9 Bipolar disorder, unspecified | CPT/HCPCS: 90832 ==

== ENCOUNTER → 2020-10-20 07:53 | Outpatient (BNVA) | payer MEDICAID, SELFPAY | PROVIDERS: Visit Provider Social Worker Clinical | DX: F10.20 Alcohol dependence, uncomplicated (principal); F43.12 Post-traumatic stress disorder, chronic; F31.9 Bipolar disorder, unspecified | CPT/HCPCS: 90832 ==

== ENCOUNTER → 2020-10-21 07:41 | Outpatient (BNVA) | payer MEDICAID, SELFPAY | PROVIDERS: Visit Provider Nurse Practitioner Psychiatric/Mental Health | DX: F31.9 Bipolar disorder, unspecified (principal); F43.12 Post-traumatic stress disorder, chronic; F10.20 Alcohol dependence, uncomplicated | CPT/HCPCS: 99212 ==

== ENCOUNTER → 2020-11-02 08:55 | Outpatient (BNVA) | payer MEDICAID, SELFPAY | PROVIDERS: Visit Provider Social Worker Clinical | DX: F43.12 Post-traumatic stress disorder, chronic (principal); F31.9 Bipolar disorder, unspecified; F10.20 Alcohol dependence, uncomplicated | CPT/HCPCS: 90832 ==

== ENCOUNTER → 2020-11-15 08:42 | Outpatient (BNVA) | payer MEDICAID, SELFPAY | PROVIDERS: Visit Provider Social Worker Clinical | DX: F43.12 Post-traumatic stress disorder, chronic (principal); F31.9 Bipolar disorder, unspecified; F10.20 Alcohol dependence, uncomplicated | CPT/HCPCS: 90832 ==

== ENCOUNTER → 2020-11-26 07:39 | Outpatient (BNVA) | payer MEDICAID, SELFPAY | PROVIDERS: Visit Provider Social Worker Clinical | DX: F43.12 Post-traumatic stress disorder, chronic (principal); F31.9 Bipolar disorder, unspecified; F10.20 Alcohol dependence, uncomplicated | CPT/HCPCS: 90832 ==

== ENCOUNTER 2020-12-07 11:19 | Emergency (ER) | payer MEDICAID, SELFPAY ==
[2020-12-07 11:20] VITALS: BP 162/98; PULSE 69; RESP 18; TEMP 36.9; O2SAT 98; BMI 38.7
--- NOTE | 2020-12-07 11:25 | CT_ITS ---
WS: [id number] CT ABDOMEN AND PELVIS WITH CONTRAST HISTORY: h/o pancreatitis. Current abd pain/n/v/d TECHNIQUE: Imaging performed of the abdomen and pelvis with IV contrast. Single phase imaging of the abdomen. Coronal and sagittal reformats are submitted. All CT scans at [facility] use at least one of these dose optimization techniques: automated exposure control; mA and/or kV adjustment per patient size (includes targeted exams where dose is matched to clinical indication); or iterativ e reconstruction. IV CONTRAST: Omnipaque 300; 95 mL IV. Oral contrast: No DLP: 1721.82 mGy.cm COMPARISON: 08/07/2020 Lower thorax: Lung bases are clear. Heart is normal size. No hiatal hernia. Liver/biliary system: Hepatic steatosis. No mass or bile duct dilatation. Gallbladder: Status post cholecystectomy. Pancreas: Normal. No pancreatitis. No pancreatic duct dilatation. Spleen: Normal. Adrenal glands: Normal. Right kidney: Normal. Left kidney: Normal. Aorta: Normal. Lymphadenopathy: None. Free fluid: None. GI tract: Prior gastric bypass. Additional follow-up surgical sutures in the mid abdomen involving th e small bowel. There is some mild adjacent soft tissue thickening but no obstruction. Similar to the prior studies. No obstructive pattern. Appendix not visualized. Abdominal wall: Ventral abdominal wall hernia repair. Pelvis: Uterus is slightly enlarged and heterogeneous. No mass identified. No free fluid. Negative ur inary bladder. Bones: Unremarkable. CT/CT abdomen pelvis w con* [id number] IMPRESSION: 1. Status post gastric bypass. 2. Prior cholecystectomy. 3. Small bowel anastomosis is unchanged with some small amount of adjacent sof t tissue thickening but no obstruction. Similar to prior studies. 4. No acute abdominal or pelvic findings. 5. No pancreatitis.
--- NOTE | 2020-12-07 11:25 | XR_ITS ---
WS: [id number] PORTABLE CHEST HISTORY: reduced breath sounds COMPARISON: 04/16/2020 Lungs are clear and well expanded. No pleural effusion or pneumothorax. Cardiac size: Normal. Mediastinum/Aorta: Normal mediastinum. No osseous abnormality seen. XR/XR chest 1V portable [id number] IMPRESSION: Unremarkable portable chest.
[2020-12-07 11:26] VITALS: BP 162/98; PULSE 79; RESP 18; O2SAT 96
--- NOTE | 2020-12-07 11:26 | ECG_ITS ---
[facility] Test Date: 2020-12-07 Pat Name: Yeimy Perry Department: Room: Gender: Female Lead Mechanic: : 1970 Requested By: Edenilson Hodges Order Number: [id number] Nba MD: Erica Raines M.D. Measurements Intervals [place] Rate: 65 P: 29 MD: 178 QRS: 72 QRSD: 91 T: 55 QT: 447 QTc: 465 Interpretive Statements SINUS RHYTHM Compared to ECG 03/02/2020 11:31:48 No significant changes Electronically Signed On 12-07-2020 17:47:14 FACILITY ATTENDANT by Erica Raines M.D. [id number]
--- NOTE | 2020-12-07 11:27 | ED_ITS ---
Documented by User: Edenilson Hodges MD 12/07/20 14:50 HPI - Abdominal Pain General: Chief Complaint: Abdominal Pain Stated Complaint: DIZZY X 3 DAYS, SOB, ABD PAIN, COUGH Time Seen by Provider: 12/07/20 11:20 History of Present Illness: HPI narrative: The patient is a 50-year-old female who comes to the ER complaining of abdominal pain, nausea, vomiting, and dizziness. She has a history of pancreatitis and says it feels like her pancreas is bothering her and she wants to get it checked out. She says the symptoms started 3 days ago with isolated dizziness and last night the abdominal pain nausea vomiting began and its worse this morning. She took naproxen approximately an hour prior to arrival. Denies alcohol or drug use. MD elicited complaint: abdominal pain Location: Epigastric Severity: similar to previous episodes Quality: sharp Exacerbating factors: nothing Relieving factors: nothing Associated Symptoms: Reports diarrhea, nausea and vomiting; Denies dysuria and fever(s) Related Data: Date of Last Menstrual Period: 04/09/20 Review of Systems General: Reports: 10 or more systems reviewed and unremarkable except in HPI and below Const: Denies: fever(s) Eyes: Denies: change in vision, blurry vision or eye redness ENMT: Denies: throat pain, swelling of lips/tongue, ear or mastoid pain or nasal congestion Card: Denies: chest pain, palpitations, irregular heart rhythm, edema, dyspnea on exertion or orthopnea Resp: Denies: dyspnea, productive cough or non-productive cough GI: Reports: abdominal pain, nausea, vomiting and diarrhea : Denies: dysuria Musc: Denies: neck pain, back pain, extremity pain, joint pain, joint redness, limited range of motion or muscle weakness Skin/Breast: Denies: rash, pruritus, erythema, skin pain or skin tenderness Neuro: Denies: headache(s), numbness in extremities, weakness in extremities, sensory changes, difficulty walking, dizziness, confusion or Slurred speech present Psych: Denies: anxiety or depression Endo: Denies: polyuria All/Imm: Denies: urticaria, throat swelling or tongue swelling PFSH ED PFSH: Medical History (Updated 12/07/20 @ 14:47 by Edenilson Hodges MD) Alcohol dependence Has been prescribed antabuse Arthritis of right knee Bipolar disorder See comments below. Chronic post-traumatic stress disorder (PTSD) Depressive disorder Hx of cholecystitis Iron deficiency anemia Obesity (BMI 35.0-39.9 without comorbidity) Recurrent pancreatitis Right elbow tendinitis Suicidal thoughts in the past Surgical History History of Hx of gastric bypass Hx of hernia repair Hx of tubal ligation Hx of unilateral salpingectomy Right Family History Other Diabetes Heart disease Social History Smoking and tobacco status: never smoked Alcohol intake: current History of recent travel: No Current gender identity: Female Female Reproductive History: Date of last menstrual period: 04/09/20 Physical Exam Const: COMMON NORMALS: no acute distress, average body habitus, patient oriented x3, no limitations, healthy appearing, alert and well nourished GENERAL APPEARANCE: cooperative, comfortable, well kempt and well developed ORIENTATION/CONSCIOUSNESS: Yes awake, Yes oriented to person, Yes oriented to place and Yes oriented to time HENMT: COMMON NORMALS: normocephalic, external ears normal and Normal external nose present HEAD & SCALP: normal to inspection and normocephalic NOSE: No rmal external nose present EXTERNAL EAR: Yes external ears normal MOUTH: Normal oral and palatal mucosa present THROAT: posterior oropharynx normal Eye: COMMON NORMALS: Equal, round and reactive pupils present and EOMs intact bilaterally GENERAL EYE: appearance normal, both eyes and all related structures PUPIL: Yes Equal, round and reactive pupils present Neck/C-Spine: COMMON NORMALS: full ROM, no lymphadenopathy, no meningeal signs and no JVD GENERAL: Yes normal visual inspection Lymph: LYMPHATIC: no lymphadenopathy noted Chest: COMMONS NORMALS: normal inspection of the chest and normal palpation of entire chest wall Resp: COMMON NORMALS: normal respiratory effort, No retractions, No use of accessory muscles, clear to auscultation bilaterally and percussion normal EFFORT & INSPECTION: Yes able to speak in complete sentences AUSCULTATION: clear to auscultation bilaterally PERCUSSION: percussion normal Cardio: COMMON NORMALS: no JVD, regular rate, regular rhythm, S1 normal heart sound present, S2 normal heart sound present and Peripheral pulses 2+ throughout RATE: regular rate RHYTHM: regular rhythm HEART SOUNDS: S1 normal heart sound present and S2 normal heart sound present PERIPHERAL PULSES: Peripheral pulses 2+ throughout GI: COMMON NORMALS: Normal to inspection, nondistended, normoactive bowel sounds present, Soft to palpation and no masses INSPECTION: Yes normal to inspection PALPATION: Yes Soft to palpation OTHER: Mild epigastric tenderness. Soft. Normal bowel sounds. No tenderness. : COMMON NORMALS: Yes no CVA tenderness BLADDER/KIDNEY EXAM: Yes no CVA tenderness Back/Pelvis: COMMON NORMALS: no CVA tenderness, thoracic and lumbar spine normal to inspection, no thoracic nor lumbar tenderness and thoraco-lumbar ROM normal Extremity: COMMON NORMALS: normal to inspection, full ROM, capillary refill normal, no joint enlargement and no pedal edema GENERAL: Yes normal exam except as noted Neuro: COMMON NORMALS: patient oriented x3, CN's II-XII intact bilaterally, moves all extremities, no focal motor deficits, no sensory deficits noted and gait normal SENSORIUM/ORIENTATION: Yes alert, Yes oriented to person, Yes oriented to place and Yes oriented to time MENINGEAL SIGNS: Yes no meningeal signs Psych: COMMON NORMALS: mental status grossly normal, Normal thought process present, cooperative, normal affect and speech normal APPEARANCE: Yes well kempt ATTITUDE: Yes calm SPEECH: Yes normal speech THOUGHT PROCESS: Normal thought process present Skin: COMMON NORMALS: no rashes or lesions noted GENERAL SKIN EXAM: no rashes or lesions noted Course Vital Signs: Vital signs: Vital Signs Temperature 98.5 F 12/07/20 11:20 Pulse Rate 79 12/07/20 11:26 Respiratory Rate 18 12/07/20 11:26 Blood Pressure 162/98 12/07/20 11:26 Pulse Oximetry 96 12/07/20 11:26 MDM - Abdominal Pain MDM Narrative: Medical decision making narrative: The patient came to the ER dizzy, nausea vomiting and diarrhea at home. She was given fluids and Zofran. She has had none of those symptoms here. Only mild dizziness which has improved somewhat. She has history of gastric bypass and gets easily dehydrated. Recommended going home and drinking fluids and returning to the ER with worsening symptoms. She has had no vomit/diarrhea since 9am which is 6 hours without symptoms. Lab Data: Labs: Lab Results 12/07/20 12/07/20 12/07/20 Range/Units 11:55 11:59 12:30 WBC (4.0-10.0) 10^3/ uL RBC (4.1-5.3) 10^6/u L Hgb (11.5-15.3) g/dL Hct (37.0-47.0) % MCV (81-99) fL MCH (28.0-34.0) pg MCHC (30.0-36.0) g/dL RDW (12.1-15.1) % Plt Count (130-400) 10^3/c mm MPV (7.4-10.4) fL Neut % (Auto) % Lymph % (Auto) % Harvey % (Auto) % Eos % (Auto) % Baso % (Auto) % Neut # (Auto) (1.8-7.7) 10^3/u L Lymph # (Auto) (0.8-4.8) 10^3/u L Harvey # (Auto) (0.2-0.9) 10^3/u L Eos # (Auto) (0.0-0.8) 10^3/u L Baso # (Auto) (0.0-0.1) 10^3/u L Nucleated RBC % (a uto) % Nucleated RBCs # /100WBC Sodium (136-145) mmol/L Potassium (3.5-5.1) mmol/L Chloride (98-107) mmol/L Carbon Dioxide (22-29) mmol/L Anion Gap (5-19) BUN (6-20) mg/dL Creatinine (0.5-0.9) mg/dL GFR Calculation (90-130) mL/min Glucose (65-115) mg/dL Calculated Osmolal ity (285-295) mOsm/k g Calcium (8.5-10.5) mg/dL Total Bilirubin (0.15-1.2) mg/dL AST (0-32) U/L ALT (0-33) U/L Alkaline Phosphata se (35-105) IU/L Troponin T Baselin e (0-10) ng/L Total Protein (6.6-8.7) g/dL Albumin (3.5-5.2) g/dL Globulin (1.3-4.6) g/dL Lipase (13-60) U/L Urine Color Yellow (Yellow) Urine Appearance Clear (CLEAR) Urine pH 7 (5-7) Ur Specific Gravit y 1.005 (1.005-1.030) Urine Protein Neg (Negative) Urine Glucose (UA) Norm (Normal) Urine Ketones Negative (Negative) Urine Blood Neg (Negative) Urine Nitrate Negative (Negative) Urine Bilirubin Neg (Negative) Urine Urobilinogen 1 H (Negative) mg/dL Ur Leukocyte Marlys ase Negative (Negative) Urine Opiates Scre en Negative (Negative) ng/mL Ur Barbiturates Sc reen Negative (Negative) ng/mL Ur Phencyclidine S crn Negative (Negative) ng/mL Ur Amphetamines Sc reen Negative (Negative) ng/mL U Benzodiazepines Scrn Negative (Negative) ng/mL Urine Cocaine Scre en Negative (Negative) ng/mL U Marijuana (THC) Screen Negative (Negative) ng/mL Ethyl Alcohol (0-10) mg/dL SARS-CoV-2 Ag (Rap id) Negative (Negative) 12/07/20 12/07/20 12/07/20 Range/Units 13:29 13:29 13:29 WBC 5.0 (4.0-10.0) 10^3/ uL RBC 4.08 L (4.1-5.3) 10^6/u L Hgb 12.4 (11.5-15.3) g/dL Hct 37.8 (37.0-47.0) % MCV 92.6 (81-99) fL MCH 30.4 (28.0-34.0) pg MCHC 32.8 (30.0-36.0) g/dL RDW 13.3 (12.1-15.1) % Plt Count 100 L (130-400) 10^3/c mm MPV 10.7 H (7.4-10.4) fL Neut % (Auto) 61.9 % Lymph % (Auto) 26.7 % Harvey % (Auto) 8.8 % Eos % (Auto) 1.8 % Baso % (Auto) 0.2 % Neut # (Auto) 3.09 (1.8-7.7) 10^3/u L Lymph # (Auto) 1.3 (0.8-4.8) 10^3/u L Harvey # (Auto) 0.4 (0.2-0.9) 10^3/u L Eos # (Auto) 0.1 (0.0-0.8) 10^3/u L Baso # (Auto) 0.0 (0.0-0.1) 10^3/u L Nucleated RBC % (a uto) 0 % Nucleated RBCs # 0.0 /100WBC Sodium 137 (136-145) mmol/L Potassium 3.8 (3.5-5.1) mmol/L Chloride 100 (98-107) mmol/L Carbon Dioxide 29 (22-29) mmol/L Anion Gap 11.8 (5-19) BUN 8 (6-20) mg/dL Creatinine 0.6 (0.5-0.9) mg/dL GFR Calculation 106.7 (90-130) mL/min Glucose 96 (65-115) mg/dL Calculated Osmolal ity 282 L (285-295) mOsm/k g Calcium 8.7 (8.5-10.5) mg/dL Total Bilirubin 0.9 (0.15-1.2) mg/dL AST 57 H (0-32) U/L ALT 59 H (0-33) U/L Alkaline Phosphata se 69 (35-105) IU/L Troponin T Baselin e 6 (0-10) ng/L Total Protein 6.3 L (6.6-8.7) g/dL Albumin 3.8 (3.5-5.2) g/dL Globulin 2.5 (1.3-4.6) g/dL Lipase 36 (13-60) U/L Urine Color (Yellow) Urine Appearance (CLEAR) Urine pH (5-7) Ur Specific Gravit y (1.005-1.030) Urine Protein (Negative) Urine Glucose (UA) (Normal) Urine Ketones (Negative) Urine Blood (Negative) Urine Nitrate (Negative) Urine Bilirubin (Negative) Urine Urobilinogen (Negative) mg/dL Ur Leukocyte Marlys ase (Negative) Urine Opiates Scre en (Negative) ng/mL Ur Barbiturates Sc reen (Negative) ng/mL Ur Phencyclidine S crn (Negative) ng/mL Ur Amphetamines Sc reen (Negative) ng/mL U Benzodiazepines Scrn (Negative) ng/mL Urine Cocaine Scre en (Negative) ng/mL U Marijuana (THC) Screen (Negative) ng/mL Ethyl Alcohol < 10 (0-10) mg/dL SARS-CoV-2 Ag (Rap id) (Negative) Discharge Plan Discharge Patient Disposition: Home Clinical Impression: Gastroenteritis Condition: Stable Prescriptions: New ondansetron 4 mg tablet,disintegrating 4 mg PO Q8H 5 Days Qty: 15 RF: 0 No Action Thera 400 mcg tablet 1 tab PO DAILY 30 Days Qty: 30 RF: 12 ferrous sulfate 325 mg (65 mg iron) tablet 325 mg PO BID Qty: 60 RF: 12 ziprasidone HCl [Geodon] 60 mg capsule 60 mg PO .q hs Qty: 30 RF: 1 hydroxyzine pamoate 50 mg capsule 50 mg PO .qhs PRN (Reason: anxiety/insomnia) Qty: 30 RF: 1 melatonin 3 mg capsule 3 mg PO .qhs PRN (Reason: sleep) 30 Days Qty: 60 RF: 0 tramadol 100 mg tablet 100 mg PO Q6H PRN (Reason: pain) Qty: 10 RF: 0 meloxicam 15 mg tablet 15 mg PO DAILY Qty: 30 RF: 1 Zofran 4 mg tablet 4 mg PO Q6H PRN (Reason: nausea and vomiting) Qty: 7 RF: 0 Discharge Orders: Discharge ED (Routine); Ordered 12/07/20 Ordered By: Edenilson Hodges Discharge Diet: Advance as tolerated Discharge Activity: Resume usual activity Patient Instructions: Acute Nausea and Vomiting (ED), Opioid Safety Activity Restrictions/Additional Instructions: You are having nausea and vomiting. It has improved some since coming to the ER. We have given you fluids and Zofran. Please go home and drink lots of wa ter and return to the ER with worsening symptoms. Follow-up with your primary care physician in a few days to monitor improvement of your symptoms. Return to the ER with worsening symptoms Coding Level of Care Code ED Chemical Production Machine Operator for Chg Fwd Exam Comprehensive Documented by User: Aldo Jenkins DO 12/07/20 13:26 HPI - Abdominal Pain General: Chief Complaint: Abdominal Pain Stated Complaint: DIZZY X 3 DAYS, SOB, ABD PAIN, COUGH Time Seen by Provider: 12/07/20 11:20 PFSH ED PFSH: Medical History (Updated 12/07/20 @ 14:47 by Edenilson Hodges MD) Alcohol dependence Has been prescribed antabuse Arthritis of right knee Bipolar disorder See comments below. Chronic post-traumatic stress disorder (PTSD) Depressive disorder Hx of cholecystitis Iron deficiency anemia Obesity (BMI 35.0-39.9 without comorbidity) Recurrent pancreatitis Right elbow tendinitis Suicidal thoughts in the past Surgical History History of Hx of gastric bypass Hx of hernia repair Hx of tubal ligation Hx of unilateral salpingectomy Right Family History Other Diabetes Heart disease Social History Smoking and tobacco status: never smoked Alcohol intake: current History of recent travel: No Current gender identity: Female Procedures EJ/Peripheral Line Arm R: Time Out Performed: Yes Skin Cleansed in Sterile Fashion: Yes Size (gauge): 18 IV Secured and Dressing Applied: Yes Patient Tolerated Procedure: well Additional Comments: Ultrasound-guided. Samples taken from IV draw prior to saline flush. Tubes labeled. IVs flushes without difficulty secured in place Course Vital Signs: Vital signs: Vital Signs Temperature 98.5 F 12/07/20 11:20 Pulse Rate 79 12/07/20 11:26 Respiratory Rate 18 12/07/20 11:26 Blood Pressure 162/98 12/07/20 11:26 Pulse Oximetry 96 12/07/20 11:26 MDM - Abdominal Pain Lab Data: Labs: Lab Results 12/07/20 12/07/20 12/07/20 Range/Units 11:55 11:59 12:30 WBC (4.0-10.0) 10^3/ uL RBC (4.1-5.3) 10^6/u L Hgb (11.5-15.3) g/dL Hct (37.0-47.0) % MCV (81-99) fL MCH (28.0-34.0) pg MCHC (30.0-36.0) g/dL RDW (12.1-15.1) % Plt Count (130-400) 10^3/c mm MPV (7.4-10.4) fL Neut % (Auto) % Lymph % (Auto) % Harvey % (Auto) % Eos % (Auto) % Baso % (Auto) % Neut # (Auto) (1.8-7.7) 10^3/u L Lymph # (Auto) (0.8-4.8) 10^3/u L Harvey # (Auto) (0.2-0.9) 10^3/u L Eos # (Auto) (0.0-0.8) 10^3/u L Baso # (Auto) (0.0-0.1) 10^3/u L Nucleated RBC % (a uto) % Nucleated RBCs # /100WBC Sodium (136-145) mmol/L Potassium (3.5-5.1) mmol/L Chloride (98-107) mmol/L Carbon Dioxide (22-29) mmol/L Anion Gap (5-19) BUN (6-20) mg/dL Creatinine (0.5-0.9) mg/dL GFR Calculation (90-130) mL/min Glucose (65-115) mg/dL Calculated Osmolal ity (285-295) mOsm/k g Calcium (8.5-10.5) mg/dL Total Bilirubin (0.15-1.2) mg/dL AST (0-32) U/L ALT (0-33) U/L Alkaline Phosphata se (35-105) IU/L Troponin T Baselin e (0-10) ng/L Total Protein (6.6-8.7) g/dL Albumin (3.5-5.2) g/dL Globulin (1.3-4.6) g/dL Lipase (13-60) U/L Urine Color Yellow (Yellow) Urine Appearance Clear (CLEAR) Urine pH 7 (5-7) Ur Specific Gravit y 1.005 (1.005-1.030) Urine Protein Neg (Negative) Urine Glucose (UA) Norm (Normal) Urine Ketones Negative (Negative) Urine Blood Neg (Negative) Urine Nitrate Negative (Negative) Urine Bilirubin Neg (Negative) Urine Urobilinogen 1 H (Negative) mg/dL Ur Leukocyte Marlys ase Negative (Negative) Urine Opiates Scre en Negative (Negative) ng/mL Ur Barbiturates Sc reen Negative (Negative) ng/mL Ur Phencyclidine S crn Negative (Negative) ng/mL Ur Amphetamines Sc reen Negative (Negative) ng/mL U Benzodiazepines Scrn Negative (Negative) ng/mL Urine Cocaine Scre en Negative (Negative) ng/mL U Marijuana (THC) Screen Negative (Negative) ng/mL Ethyl Alcohol (0-10) mg/dL SARS-CoV-2 Ag (Rap id) Negative (Negative) 12/07/20 12/07/20 12/07/20 Range/Units 13:29 13:29 13:29 WBC 5.0 (4.0-10.0) 10^3/ uL RBC 4.08 L (4.1-5.3) 10^6/u L Hgb 12.4 (11.5-15.3) g/dL Hct 37.8 (37.0-47.0) % MCV 92.6 (81-99) fL MCH 30.4 (28.0-34.0) pg MCHC 32.8 (30.0-36.0) g/dL RDW 13.3 (12.1-15.1) % Plt Count 100 L (130-400) 10^3/c mm MPV 10.7 H (7.4-10.4) fL Neut % (Auto) 61.9 % Lymph % (Auto) 26.7 % Harvey % (Auto) 8.8 % Eos % (Auto) 1.8 % Baso % (Auto) 0.2 % Neut # (Auto) 3.09 (1.8-7.7) 10^3/u L Lymph # (Auto) 1.3 (0.8-4.8) 10^3/u L Harvey # (Auto) 0.4 (0.2-0.9) 10^3/u L Eos # (Auto) 0.1 (0.0-0.8) 10^3/u L Baso # (Auto) 0.0 (0.0-0.1) 10^3/u L Nucleated RBC % (a uto) 0 % Nucleated RBCs # 0.0 /100WBC Sodium 137 (136-145) mmol/L Potassium 3.8 (3.5-5.1) mmol/L Chloride 100 (98-107) mmol/L Carbon Dioxide 29 (22-29) mmol/L Anion Gap 11.8 (5-19) BUN 8 (6-20) mg/dL Creatinine 0.6 (0.5-0.9) mg/dL GFR Calculation 106.7 (90-130) mL/min Glucose 96 (65-115) mg/dL Calculated Osmolal ity 282 L (285-295) mOsm/k g Calcium 8.7 (8.5-10.5) mg/dL Total Bilirubin 0.9 (0.15-1.2) mg/dL AST 57 H (0-32) U/L ALT 59 H (0-33) U/L Alkaline Phosphata se 69 (35-105) IU/L Troponin T Baselin e 6 (0-10) ng/L Total Protein 6.3 L (6.6-8.7) g/dL Albumin 3.8 (3.5-5.2) g/dL Globulin 2.5 (1.3-4.6) g/dL Lipase 36 (13-60) U/L Urine Color (Yellow) Urine Appearance (CLEAR) Urine pH (5-7) Ur Specific Gravit y (1.005-1.030) Urine Protein (Negative) Urine Glucose (UA) (Normal) Urine Ketones (Negative) Urine Blood (Negative) Urine Nitrate (Negative) Urine Bilirubin (Negative) Urine Urobilinogen (Negative) mg/dL Ur Leukocyte Marlys ase (Negative) Urine Opiates Scre en (Negative) ng/mL Ur Barbiturates Sc reen (Negative) ng/mL Ur Phencyclidine S crn (Negative) ng/mL Ur Amphetamines Sc reen (Negative) ng/mL U Benzodiazepines Scrn (Negative) ng/mL Urine Cocaine Scre en (Negative) ng/mL U Marijuana (THC) Screen (Negative) ng/mL Ethyl Alcohol < 10 (0-10) mg/dL SARS-CoV-2 Ag (Rap id) (Negative) Discharge Plan Discharge Patient Disposition: Home Clinical Impression: Gastroenteritis Condition: Stable Prescriptions: New ondansetron 4 mg tablet,disintegrating 4 mg PO Q8H 5 Days Qty: 15 RF: 0 No Action Thera 400 mcg tablet 1 tab PO DAILY 30 Days Qty: 30 RF: 12 ferrous sulfate 325 mg (65 mg iron) tablet 325 mg PO BID Qty: 60 RF: 12 ziprasidone HCl [Geodon] 60 mg capsule 60 mg PO .q hs Qty: 30 RF: 1 hydroxyzine pamoate 50 mg capsule 50 mg PO .qhs PRN (Reason: anxiety/insomnia) Qty: 30 RF: 1 melatonin 3 mg capsule 3 mg PO .qhs PRN (Reason: sleep) 30 Days Qty: 60 RF: 0 tramadol 100 mg tablet 100 mg PO Q6H PRN (Reason: pain) Qty: 10 RF: 0 meloxicam 15 mg tablet 15 mg PO DAILY Qty: 30 RF: 1 Zofran 4 mg tablet 4 mg PO Q6H PRN (Reason: nausea and vomiting) Qty: 7 RF: 0 Discharge Orders: Discharge ED (Routine); Ordered 12/07/20 Ordered By: Edenilson Hodges Discharge Diet: Advance as tolerated Discharge Activity: Resume usual activity Patient Instructions: Acute Nausea and Vomiting (ED), Opioid Safety Activity Restrictions/Additional Instructions: You are having nausea and vomiting. It has improved some since coming to the ER. We have given you fluids and Zofran. Please go home and drink lots of water and return to the ER with worsening symptoms. Follow-up with your primary care physician in a few days to monitor improvement of your symptoms. Return to the ER with worsening symptoms Coding Level of Care Code ED Chemical Production Machine Operator for Hannah Fulton Exam Comprehensive
[2020-12-07 12:20] LABS: Add Urine Microscopic? NO
[2020-12-07 12:22] LABS: Bilirubin Urine Neg (Negative); Blood Urine Neg (Negative); Glucose Urine UA Norm (Normal); Ketones Urine Negative (Negative); Leukocyte Esterase Urine Negative (Negative); Nitrate Urine Negative (Negative); Protein Urine Neg (Negative); Specific Gravity, Urine 1.005 (1.005-1.030); Urine Appearance Clear (CLEAR); Urine Color Yellow (Yellow); Urobilinogen Urine 1 mg/dL (Negative); pH Urine 7 (5-7)
[2020-12-07 12:32] LABS: Amphetamines Screen Urine Negative (Negative); Barbiturates Screen Urine Negative (Negative); Benzodiazepines Screen Urine Negative (Negative); Cocaine Screen Urine Negative (Negative); Opiate Screen Urine Negative (Negative); PCP Screen Urine Negative (Negative); THC Screen Urine Negative (Negative)
[2020-12-07 12:54] LABS: SARS Covid-2 Antigen Negative (Negative)
[2020-12-07] MEDS: iohexol 300 mg/mL 100 mL Btl IV (13:44)
[2020-12-07 13:48] LABS: Alanine Aminotransferase 59 U/L (0-33); Albumin Level 3.8 g/dL (3.5-5.2); Alkaline Phosphatase 69 IU/L (35-105); Anion Gap 11.8 (5-19); Aspartate Amino Transferase 57 U/L (0-32); Blood Urea Nitrogen 8 mg/dL (6-20); Calcium 8.7 mg/dL (8.5-10.5); Carbon Dioxide 29 mmol/L (22-29); Chloride 100 mmol/L (98-107); Globulin 2.5 g/dL (1.3-4.6); Glomerular Filtration Rate 106.7 mL/min (90-130); Glucose 96 mg/dL (65-115); Lipase 36 U/L (13-60); Osmolality Calculated 282 mOsm/kg (285-295); Potassium 3.8 mmol/L (3.5-5.1); Sodium 137 mmol/L (136-145); Total Bilirubin 0.9 mg/dL (0.15-1.2); Total Protein 6.3 g/dL (6.6-8.7)
[2020-12-07 13:49] LABS: Alcohol Level < 10 mg/dL (0-10); Troponin(5th) Baseline 6 ng/L (0-10)
[2020-12-07] MEDS: ondansetron 2 mg/ML SDV 2 mL 4 MG IVP (13:55)
[2020-12-07] MEDS: sodium chloride 0.9% 1,000 ML 999 ML IV (13:56)
[2020-12-07 14:06] LABS: Basophils % 0.2 %; Eosinophils # 0.1 10^3/uL (0.0-0.8); Eosinophils % 1.8 %; Hematocrit 37.8 % (37.0-47.0); Hemoglobin 12.4 g/dL (11.5-15.3); Lymphocytes # 1.3 10^3/uL (0.8-4.8); Lymphocytes % 26.7 %; Mean Corpuscular HGB Conc 32.8 g/dL (30.0-36.0); Mean Corpuscular Hemoglobin 30.4 pg (28.0-34.0); Mean Corpuscular Volume 92.6 fL (81-99); Mean Platelet Volume 10.7 fL (7.4-10.4); Monocytes # 0.4 10^3/uL (0.2-0.9); Monocytes % 8.8 %; Neutrophils # 3.09 10^3/uL (1.8-7.7); Neutrophils % 61.9 %; Nucleated Red Blood Cells % 0 %; Platelet Count 100 10^3/cmm (130-400); Red Blood Count 4.08 10^6/uL (4.1-5.3); Red Cell Distribution Width 13.3 % (12.1-15.1)
[2020-12-07 14:44] LABS: Slide Review Slide Review Perform
[2020-12-07 15:07] VITALS: BP 152/97; PULSE 61; RESP 18; TEMP 36.8; O2SAT 100
== END 2020-12-07 15:10 | disposition home or self-care (01) ==
PROVIDERS: Emergency Provider Family Medicine
DX: K52.9 Noninfective gastroenteritis and colitis, unspecified (principal)
CPT/HCPCS: 36573; 71045; 74177; 80053; 80306; 80307; 81003; 83690; 84484; 85025; 87426; 93005; 96361; 96374; 99284; J2405; J7030; Q9967

== ENCOUNTER → 2020-12-13 07:22 | Outpatient (BNVA) | payer MEDICAID, SELFPAY | PROVIDERS: Visit Provider Nurse Practitioner Psychiatric/Mental Health | DX: F31.9 Bipolar disorder, unspecified (principal); F43.12 Post-traumatic stress disorder, chronic; F10.20 Alcohol dependence, uncomplicated | CPT/HCPCS: 99213 ==

== ENCOUNTER → 2020-12-14 08:26 | Outpatient (BNVA) | payer MEDICAID, SELFPAY | PROVIDERS: Visit Provider Social Worker Clinical | DX: F31.9 Bipolar disorder, unspecified (principal); F43.12 Post-traumatic stress disorder, chronic; F10.20 Alcohol dependence, uncomplicated | CPT/HCPCS: 90834 ==

== ENCOUNTER 2020-12-26 12:35 | Inpatient (IN) | payer MEDICAID, SELFPAY ==
[2020-12-26] VITALS (10 sets, daily range): BP systolic 124–186; BP diastolic 79–105; PULSE 90–118; RESP 16–22; TEMP 36.8–37.1; O2SAT 95–100; BMI 39.5
--- NOTE | 2020-12-26 12:49 | ECG_ITS ---
[facility] Test Date: 2020-12-26 Pat Name: Yeimy Perry Department: Room: Gender: Female Bead Preparer: : 1970 Requested By: Edenilson Hodges Order Number: [id number] Reading MD: JASMINA WALKER Measurements Intervals [place] Rate: 105 P: 51 [place]: 137 QRS: 72 QRSD: 88 T: 5 QT: 366 QTc: 484 Interpretive Statements SINUS TACHYCARDIA ABNORMAL RHYTHM ECG Compared to ECG 12/07/2020 11:52:56 Sinus rhythm no longer present Electronically Signed On 12-26-2020 17:43:03 EXPERIMENTAL WORKER by JASMINA WALKER [id number]
--- NOTE | 2020-12-26 12:49 | XRR_ITS ---
PROCEDURE INFORMATION: Exam: XR Chest Exam date and time: 12/26/2020 1:23 PM Age: 50 years old Clinical indication: Shortness of breath; Patient HX: Reduced breath sounds TECHNIQUE: Imaging protocol: XR of the chest Views: Frontal portable upright view of the chest. COMPARISON: CR XR chest 1V portable [id number] 12/07/2020 11:27 AM FINDINGS: Tubes, catheters and devices: EKG leads are present overlying the chest. Lungs: The lungs are clear bilaterally. The pulmonary vasculature is normal. Pleural spaces: No pleural effusion. No pneumothorax. Heart/Mediastinum: The heart is normal in size and contour. Bones/joints: Right lateral vertebral body marginal osteophytes are noted at multiple thoracic spinal levels. XR/XR chest 1V portable [id number] IMPRESSION: No acute cardiopulmonary abnormality identified.
--- NOTE | 2020-12-26 12:52 | ED_ITS ---
HPI - Psych General: Chief Complaint: Psychiatric Symptoms Stated Complaint: SI Time Seen by Provider: 12/26/20 12:39 History of Present Illness: HPI Narrative: The patient is a 50-year-old female with past medical history alcoholism and pancreatitis. She says she is also feeling depressed like she wants to hurt herself but has no plan. Last drink of alcohol 12 hours ago and heart rate over 100. She says she began to have upper midline abdominal pain typical of her pancreatitis and has been nauseous and vomiting at home. She says she quit drinking alcohol cold however further questioning likely reveals it is from the nausea and vomiting that are preventing her from drinking. She does smell of alcohol on her breath. Associated symptoms: Deny depression Review of Systems General: Reports: 10 or more systems reviewed and unremarkable except in HPI and below Const: Denies: fatigue Eyes: Denies: change in vision, blurry vision or eye redness ENMT: Denies: throat pain, swelling of lips/tongue, ear or mastoid pain or nasal congestion Card: Denies: chest pain, palpitations, irregular heart rhythm, edema, dyspnea on exertion or orthopnea Resp: Denies: dyspnea, productive cough or non-productive cough GI: Reports: abdominal pain and nausea; Denies: diarrhea or GI cramping : Denies: flank pain, difficulty voiding, urinary frequency or urinary urgency Musc: Denies: neck pain, back pain, extremity pain, joint pain, joint redness, limited range of motion or muscle weakness Skin/Breast: Denies: rash, pruritus, erythema, skin pain or skin tenderness Neuro: Denies: headache(s), numbness in extremities, weakness in extremities, sensory changes, difficulty walking, dizziness, confusion or Slurred speech present Psych: Denies: anxiety or depression Endo: Denies: polyuria All/Imm: Denies: urticaria, throat swelling or tongue swelling PFSH ED PFSH: Medical History (Updated 12/26/20 @ 17:13 by Edenilson Hodges MD) Alcohol dependence Has been prescribed antabuse Arthritis of right knee Bipolar disorder See comments below. Chronic post-traumatic stress disorder (PTSD) Depressive disorder Hx of cholecystitis Iron deficiency anemia Obesity (BMI 35.0-39.9 without comorbidity) Recurrent pancreatitis Right elbow tendinitis Suicidal thoughts in the past Surgical History History of Hx of gastric bypass Hx of hernia repair Hx of tubal ligation Hx of unilateral salpingectomy Right Family History Other Diabetes Heart disease Social History Smoking and tobacco status: never smoked Alcohol intake: current History of recent travel: No Current gender identity: Female Female Reproductive History: Date of last menstrual period: 04/09/20 Physical Exam Const: COMMON NORMALS: no acute distress, average body habitus, patient oriented x3, no limitations, healthy appearing, alert and well nourished GENERAL APPEARANCE: cooperative, comfortable, well kempt and well developed ORIENTATION/CONSCIOUSNESS: Yes awake, Yes oriented to person, Yes oriented to place and Yes oriented to time HENMT: COMMON NORMALS: normocephalic, external ears normal and Normal external nose present HEAD & SCALP: normal to inspection and normocephalic NOSE: Normal external nose present EXTERNAL EAR: Yes external ears normal MOUTH: Normal oral and palatal mucosa present THROAT: posterior oropharynx normal Eye: COMMON NORMALS: Equal, round and reactive pupils present and EOMs intact bilaterally GENERAL EYE: appearance normal, both eyes and all related structures PUPIL: Yes Equal, round and reactive pupils present Neck/C-Spine: COMMON NORMALS: full ROM, no lymphadenopathy, no meningeal signs and no JVD GENERAL: Yes normal visual inspection Lymph: LYMPHATIC: no lymphadenopathy noted Chest: COMMONS NORMALS: normal inspection of the chest and normal palpation of entire chest wall Resp: COMMON NORMALS: normal respiratory effort, No retractions, No use of accessory muscles, clear to auscultation bilaterally and percussion normal EFFORT & INSPECTION: Yes able to speak in complete sentences AUSCULTATION: clear to auscultation bilaterally PERCUSSION: percussion normal Cardio: COMMON NORMALS: no JVD, regular rate, regular rhythm, S1 normal heart sound present, S2 normal heart sound present and Peripheral pulses 2+ throughout RATE: regular rate RHYTHM: regular rhythm HEART SOUNDS: S1 normal heart sound present and S2 normal heart sound present PERIPHERAL PULSES: Peripheral pulses 2+ throughout GI: COMMON NORMALS: Normal to inspection, nondistended, normoactive bowel sounds present, Soft to palpation and no masses INSPECTION: Yes normal to inspection PALPATION: Yes Soft to palpation OTHER: Mild to moderate epigastric tenderness. : COMMON NORMALS: Yes no CVA tenderness BLADDER/KIDNEY EXAM: Yes no CVA tenderness Back/Pelvis: COMMON NORMALS: no CVA tenderness, thoracic and lumbar spine normal to inspection, no thoracic nor lumbar tenderness and thoraco-lumbar ROM normal Extremity: COMMON NORMALS: normal to inspection, full ROM, capillary refill normal, no joint enlargement and no pedal edema GENERAL: Yes normal exam except as noted Neuro: COMMON NORMALS: patient oriented x3, CN's II-XII intact bilaterally, moves all extremities, no focal motor deficits, no sensory deficits noted and gait normal SENSORIUM/ORIENTATION: Yes alert, Yes oriented to person, Yes oriented to place and Yes oriented to time MENINGEAL SIGNS: Yes no meningeal signs Psych: COMMON NORMALS: mental status grossly normal, Normal thought process present, cooperative, normal affect and speech normal APPEARANCE: Yes well kempt ATTITUDE: Yes calm SPEECH: Yes normal speech THOUGHT PROCESS: Normal thought process present Skin: COMMON NORMALS: no rashes or lesions noted GENERAL SKIN EXAM: no rashes or lesions noted MDM - Psych MDM Narrative: Medical decision making narrative: Patient was given Ativan and clonidine on arrival with good resolution of her withdrawal symptoms. Discussed with Dr. Kwong for suicidal ideations and he accepts for admission with the withdrawal protocol. Her alcohol is nearly at a normal level. She has not had previous history of seizures. Stable for admission to [facility]. Lab Data: Labs: Lab Results 12/26/20 12/26/20 12/26/20 Range/Units 13:10 13:10 13:10 WBC 10.2 H (4.0-10.0) 10^3/ uL RBC 4.06 L (4.1-5.3) 10^6/u L Hgb 12.5 (11.5-15.3) g/dL Hct 36.9 L (37.0-47.0) % MCV 90.9 (81-99) fL MCH 30.8 (28.0-34.0) pg MCHC 33.9 (30.0-36.0) g/dL RDW 13.7 (12.1-15.1) % Plt Count 170 (130-400) 10^3/c mm MPV 9.9 (7.4-10.4) fL Neut % (Auto) 77.4 % Lymph % (Auto) 11.5 % [place] % (Auto) 8.2 % Eos % (Auto) 2.3 % Baso % (Auto) 0.3 % Neut # (Auto) 7.90 H (1.8-7.7) 10^3/u L Lymph # (Auto) 1.2 (0.8-4.8) 10^3/u L [place] # (Auto) 0.8 (0.2-0.9) 10^3/u L Eos # (Auto) 0.2 (0.0-0.8) 10^3/u L Baso # (Auto) 0.0 (0.0-0.1) 10^3/u L Nucleated RBC % (a uto) 0 % Nucleated RBCs # 0.0 /100WBC Sodium Cancelled Potassium Cancelled Chloride Cancelled Carbon Dioxide Cancelled Anion Gap Cancelled BUN Cancelled Creatinine Cancelled GFR Calculation Cancelled Glucose Cancelled Calculated Osmolal ity Cancelled Calcium Cancelled Total Bilirubin Cancelled AST Cancelled ALT Cancelled Alkaline Phosphata se Cancelled Troponin T Baselin e Cancelled Total Protein Cancelled Albumin Cancelled Globulin Cancelled Lipase Cancelled TSH Cancelled HCG, Qual (Negative) Urine Color (Yellow) Urine Appearance (CLEAR) Urine pH (5-7) Ur Specific Gravit y (1.005-1.030) Urine Protein (Negative) Urine Glucose (UA) (Normal) Urine Ketones (Negative) Urine Blood (Negative) Urine Nitrate (Negative) Urine Bilirubin (Negative) Urine Urobilinogen (Negative) mg/dL Ur Leukocyte Marlys ase (Negative) Urine RBC (0-2) /hpf Urine WBC (0-5) /hpf Ur Squamous Epith Cells (0-5) /hpf Amorphous Sediment Urine Bacteria (NONE) /hpf Salicylates Cancelled Urine Opiates Scre en (Negative) ng/mL Acetaminophen Cancelled Ur Barbiturates Sc reen (Negative) ng/mL Ur Phencyclidine S crn (Negative) ng/mL Ur Amphetamines Sc reen (Negative) ng/mL U Benzodiazepines Scrn (Negative) ng/mL Urine Cocaine Scre en (Negative) ng/mL U Marijuana (THC) Screen (Negative) ng/mL Ethyl Alcohol Cancelled 12/26/20 12/26/20 12/26/20 Range/Units 13:27 13:27 13:27 WBC (4.0-10.0) 10^3/ uL RBC (4.1-5.3) 10^6/u L Hgb (11.5-15.3) g/dL Hct (37.0-47.0) % MCV (81-99) fL MCH (28.0-34.0) pg MCHC (30.0-36.0) g/dL RDW (12.1-15.1) % Plt Count (130-400) 10^3/c mm MPV (7.4-10.4) fL Neut % (Auto) % Lymph % (Auto) % [place] % (Auto) % Eos % (Auto) % Baso % (Auto) % Neut # (Auto) (1.8-7.7) 10^3/u L Lymph # (Auto) (0.8-4.8) 10^3/u L [place] # (Auto) (0.2-0.9) 10^3/u L Eos # (Auto) (0.0-0.8) 10^3/u L Baso # (Auto) (0.0-0.1) 10^3/u L Nucleated RBC % (a uto) % Nucleated RBCs # /100WBC Sodium Potassium Chloride Carbon Dioxide Anion Gap BUN Creatinine GFR Calculation Glucose Calculated Osmolal ity Calcium Total Bilirubin AST ALT Alkaline Phosphata se Troponin T Baselin e Total Protein Albumin Globulin Lipase TSH HCG, Qual Negative (Negative) Urine Color Yellow (Yellow) Urine Appearance Sl hazy (CLEAR) Urine pH 6 (5-7) Ur Specific Gravit y 1.010 (1.005-1.030) Urine Protein Neg (Negative) Urine Glucose (UA) Norm (Normal) Urine Ketones 1+ H (Negative) Urine Blood 3+ H (Negative) Urine Nitrate Positive H (Negative) Urine Bilirubin Neg (Negative) Urine Urobilinogen Norm (Negative) mg/dL Ur Leukocyte Marlys ase 1+ H (Negative) Urine RBC 40-50 H (0-2) /hpf Urine WBC 15-25 H (0-5) /hpf Ur Squamous Epith Cells 0-4 H (0-5) /hpf Amorphous Sediment Not Reportable Urine Bacteria 3+ H (NONE) /hpf Salicylates Urine Opiates Scre en Negative (Negative) ng/mL Acetaminophen Ur Barbiturates Sc reen Negative (Negative) ng/mL Ur Phencyclidine S crn Negative (Negative) ng/mL Ur Amphetamines Sc reen Negative (Negative) ng/mL U Benzodiazepines Scrn Negative (Negative) ng/mL Urine Cocaine Scre en Negative (Negative) ng/mL U Marijuana (THC) Screen Negative (Negative) ng/mL Ethyl Alcohol 12/26/20 12/26/20 12/26/20 Range/Units 13:35 13:35 14:45 WBC (4.0-10.0) 10^3/ uL RBC (4.1-5.3) 10^6/u L Hgb (11.5-15.3) g/dL Hct (37.0-47.0) % MCV (81-99) fL MCH (28.0-34.0) pg MCHC (30.0-36.0) g/dL RDW (12.1-15.1) % Plt Count (130-400) 10^3/c mm MPV (7.4-10.4) fL Neut % (Auto) % Lymph % (Auto) % [place] % (Auto) % Eos % (Auto) % Baso % (Auto) % Neut # (Auto) (1.8-7.7) 10^3/u L Lymph # (Auto) (0.8-4.8) 10^3/u L [place] # (Auto) (0.2-0.9) 10^3/u L Eos # (Auto) (0.0-0.8) 10^3/u L Baso # (Auto) (0.0-0.1) 10^3/u L Nucleated RBC % (a uto) % Nucleated RBCs # /100WBC Sodium Cancelled Potassium Cancelled Chloride Cancelled Carbon Dioxide Cancelled Anion Gap Cancelled BUN Cancelled Creatinine Cancelled GFR Calculation Cancelled Glucose Cancelled Calculated Osmolal ity Cancelled Calcium Cancelled Total Bilirubin Cancelled AST Cancelled ALT Cancelled Alkaline Phosphata se Cancelled Troponin T Baselin e Cancelled 6 Total Protein Cancelled Albumin Cancelled Globulin Cancelled Lipase Cancelled TSH Cancelled HCG, Qual (Negative) Urine Color (Yellow) Urine Appearance (CLEAR) Urine pH (5-7) Ur Specific Gravit y (1.005-1.030) Urine Protein (Negative) Urine Glucose (UA) (Normal) Urine Ketones (Negative) Urine Blood (Negative) Urine Nitrate (Negative) Urine Bilirubin (Negative) Urine Urobilinogen (Negative) mg/dL Ur Leukocyte Marlys ase (Negative) Urine RBC (0-2) /hpf Urine WBC (0-5) /hpf Ur Squamous Epith Cells (0-5) /hpf Amorphous Sediment Urine Bacteria (NONE) /hpf Salicylates Cancelled Urine Opiates Scre en (Negative) ng/mL Acetaminophen Cancelled Ur Barbiturates Sc reen (Negative) ng/mL Ur Phencyclidine S crn (Negative) ng/mL Ur Amphetamines Sc reen (Negative) ng/mL U Benzodiazepines Scrn (Negative) ng/mL Urine Cocaine Scre en (Negative) ng/mL U Marijuana (THC) Screen (Negative) ng/mL Ethyl Alcohol Cancelled 12/26/20 Range/Units 14:45 WBC (4.0-10.0) 10^3/ uL RBC (4.1-5.3) 10^6/u L Hgb (11.5-15.3) g/dL Hct (37.0-47.0) % MCV (81-99) fL MCH (28.0-34.0) pg MCHC (30.0-36.0) g/dL RDW (12.1-15.1) % Plt Count (130-400) 10^3/c mm MPV (7.4-10.4) fL Neut % (Auto) % Lymph % (Auto) % [place] % (Auto) % Eos % (Auto) % Baso % (Auto) % Neut # (Auto) (1.8-7.7) 10^3/u L Lymph # (Auto) (0.8-4.8) 10^3/u L [place] # (Auto) (0.2-0.9) 10^3/u L Eos # (Auto) (0.0-0.8) 10^3/u L Baso # (Auto) (0.0-0.1) 10^3/u L Nucleated RBC % (a uto) % Nucleated RBCs # /100WBC Sodium 128 L Potassium 3.7 Chloride 91 L Carbon Dioxide 17 L Anion Gap 23.7 H BUN 6 Creatinine 0.5 GFR Calculation 131.7 H Glucose 88 Calculated Osmolal ity 263 L Calcium 7.6 L Total Bilirubin 2.1 H AST 52 H ALT 39 H Alkaline Phosphata se 114 H Troponin T Baselin e Total Protein 5.9 L Albumin 3.3 L Globulin 2.6 Lipase 12 L TSH 2.39 HCG, Qual (Negative) Urine Color (Yellow) Urine Appearance (CLEAR) Urine pH (5-7) Ur Specific Gravit y (1.005-1.030) Urine Protein (Negative) Urine Glucose (UA) (Normal) Urine Ketones (Negative) Urine Blood (Negative) Urine Nitrate (Negative) Urine Bilirubin (Negative) Urine Urobilinogen (Negative) mg/dL Ur Leukocyte Marlys ase (Negative) Urine RBC (0-2) /hpf Urine WBC (0-5) /hpf Ur Squamous Epith Cells (0-5) /hpf Amorphous Sediment Urine Bacteria (NONE) /hpf Salicylates < 0.3 L Urine Opiates Scre en (Negative) ng/mL Acetaminophen < 5.0 L Ur Barbiturates Sc reen (Negative) ng/mL Ur Phencyclidine S crn (Negative) ng/mL Ur Amphetamines Sc reen (Negative) ng/mL U Benzodiazepines Scrn (Negative) ng/mL Urine Cocaine Scre en (Negative) ng/mL U Marijuana (THC) Screen (Negative) ng/mL Ethyl Alcohol 14 H Discharge Plan Discharge Patient Disposition: Admitted As Inpatient Clinical Impression: Alcohol use disorder, severe, dependence, Suicidal ideation, Acute alcoholic gastritis Condition: Stable Coding Level of Care Code ED [employer] for Hannah Fulton
[2020-12-26] MEDS: sodium chloride 0.9% 1,000 ML 999 ML IV (13:27)
[2020-12-26] MEDS: LORazepam 2 mg/mL INJ 1 mL 1 MG IV (13:28)
[2020-12-26] MEDS: ondansetron 2 mg/ML SDV 2 mL 4 MG IVP (13:28)
[2020-12-26 13:37] LABS: Basophils % 0.3 %; Eosinophils # 0.2 10^3/uL (0.0-0.8); Eosinophils % 2.3 %; Hematocrit 36.9 % (37.0-47.0); Hemoglobin 12.5 g/dL (11.5-15.3); Lymphocytes # 1.2 10^3/uL (0.8-4.8); Lymphocytes % 11.5 %; Mean Corpuscular HGB Conc 33.9 g/dL (30.0-36.0); Mean Corpuscular Hemoglobin 30.8 pg (28.0-34.0); Mean Corpuscular Volume 90.9 fL (81-99); Mean Platelet Volume 9.9 fL (7.4-10.4); Monocytes # 0.8 10^3/uL (0.2-0.9); Monocytes % 8.2 %; Neutrophils % 77.4 %; Nucleated Red Blood Cells % 0 %; Platelet Count 170 10^3/cmm (130-400); Red Blood Count 4.06 10^6/uL (4.1-5.3); Red Cell Distribution Width 13.7 % (12.1-15.1); White Blood Count 10.2 10^3/uL (4.0-10.0)
[2020-12-26 13:44] LABS: HCG Qualitative Urine. Negative (Negative)
[2020-12-26 13:50] LABS: Amphetamines Screen Urine Negative (Negative); Barbiturates Screen Urine Negative (Negative); Benzodiazepines Screen Urine Negative (Negative); Cocaine Screen Urine Negative (Negative); Opiate Screen Urine Negative (Negative); PCP Screen Urine Negative (Negative); THC Screen Urine Negative (Negative)
[2020-12-26 13:55] LABS: Add Urine Microscopic? YES; Bacteria Urine 3+ /hpf; Bilirubin Urine Neg (Negative); Blood Urine 3+ (Negative); Glucose Urine UA Norm (Normal); Ketones Urine 1+ (Negative); Leukocyte Esterase Urine 1+ (Negative); Nitrate Urine Positive (Negative); Protein Urine Neg (Negative); RBC Urine 40-50 /hpf (0-2); Squamous Epithelial Cell Urine 0-4 /hpf (0-5); Urine Appearance SL Hazy (CLEAR); Urine Color Yellow (Yellow); Urobilinogen Urine Norm (Negative); WBC Urine 15-25 /hpf (0-5); pH Urine 6 (5-7)
[2020-12-26 13:56] LABS: Add Urine Culture? Yes
--- NOTE | 2020-12-26 14:01 | CTR_ITS ---
PROCEDURE INFORMATION: Exam: CT Orbits Without Contrast Exam date and time: 12/26/2020 2:16 PM Age: 50 years old Clinical indication: Eye pain; Left; Additional info: Left black eye TECHNIQUE: Imaging protocol: Computed tomography images of the orbits without contrast. Radiation optimization: All CT scans at this facility use at least one of these dose optimization techniques: automated exposure control; mA and/or kV adjustment per patient size (includes targeted exams where dose is matched to clinical indication); or iterative reconstruction. COMPARISON: No relevant prior studies available. RADIATION DOSE METRICS: Total DLP (mGy-cm): 390.46 FINDINGS: Orbital cavity: Orbits are normal. Globes are unremarkable. Paranasal sinuses: Moderate inferior left maxillary sinus mucosal thickening with adherent mucus. Bones/joints: Bilateral nasal fractures of the lateral nasal bones, on the left mildly comminuted, 7 mm posterior to margin there is 1.5 mm medial displacement of the distal segment. On the right, 12 mm proximal to the distal margin there is 1.2 mm of lateral displacement of the distal segment. Additional nondisplaced/minimally displaced fractures extending into the upper nasal arch at the junction with the nasal septum. A nondisplaced anterior superior nasal septal fractures also present near the junction (series 601, images 31-34). The inferior nasal process of the maxilla is not included. Soft tissues: Mild bilateral perinasal soft tissue swelling. CT/CT orbit BI wo con* [id number] IMPRESSION: 1. Bilateral displaced nasal fractures, with nondisplaced anterior superior nasal septal fractures. 2. Incidental left maxillary sinus mucosal disease as above. Radiation Dose CTDIVOL = (mGy): DLP = 390.46 (mGy-cm)
[2020-12-26] MEDS: cloNIDine 0.1 mg Tablet 0.2 MG PO (14:10)
[2020-12-26 15:21] LABS: Alanine Aminotransferase 39 U/L (0-33); Albumin Level 3.3 g/dL (3.5-5.2); Alcohol Level 14 mg/dL (0-10); Alkaline Phosphatase 114 IU/L (35-105); Anion Gap 23.7 (5-19); Aspartate Amino Transferase 52 U/L (0-32); Blood Urea Nitrogen 6 mg/dL (6-20); Calcium 7.6 mg/dL (8.5-10.5); Carbon Dioxide 17 mmol/L (22-29); Chloride 91 mmol/L (98-107); Globulin 2.6 g/dL (1.3-4.6); Glomerular Filtration Rate 131.7 mL/min (90-130); Glucose 88 mg/dL (65-115); Lipase 12 U/L (13-60); Osmolality Calculated 263 mOsm/kg (285-295); Potassium 3.7 mmol/L (3.5-5.1); Sodium 128 mmol/L (136-145); Thyroid Stimulating Hormone 2.39 uIU/mL (0.27-4.20); Total Bilirubin 2.1 mg/dL (0.15-1.2); Total Protein 5.9 g/dL (6.6-8.7)
[2020-12-26 15:29] LABS: Acetaminophen < 5.0 ug/mL (10-30); Salicylate < 0.3 mg/dL (3-10)
--- NOTE | 2020-12-26 15:44 | CTR_ITS ---
PROCEDURE INFORMATION: Exam: CT Abdomen And Pelvis With Contrast Exam date and time: 12/26/2020 4:07 PM Age: 50 years old Clinical indication: Abdominal pain; Generalized; Additional info: Abdominal pain. Alcoholic TECHNIQUE: Imaging protocol: Computed tomography of the abdomen and pelvis with contrast. Radiation optimization: All CT scans at this facility use at least one of these dose optimization techniques: automated exposure control; mA and/or kV adjustment per patient size (includes targeted exams where dose is matched to clinical indication); or iterative reconstruction. Contrast material: OMNI 300; Contrast volume: 95 ml; Contrast route: INTRAVENOUS (IV); COMPARISON: CT abdomen pelvis w con* [id number] 12/07/2020 1:53 PM RADIATION DOSE METRICS: Total DLP (mGy-cm): 1880.03 FINDINGS: Liver: Moderate diffuse hypoattenuation of the liver is present consistent with hepatic steatosis. Gallbladder and bile ducts: Normal. No calcified stones. No ductal dilation. Pancreas: Normal. No ductal dilation. Spleen: Normal. No splenomegaly. Adrenal glands: Normal. No mass. Kidneys and ureters: Sub 5 mm left renal benign cyst, stable. Stomach and bowel: The patient is status post a gastric bypass procedure with an antecolic Adan-en-Y loop. Appendix: No evidence of appendicitis. Intraperitoneal space: Unremarkable. No free air. No significant fluid collection. Vasculature: Calcified phleboliths are present in the lower pelvis bilaterally. Lymph nodes: No enlarged lymph nodes. Urinary bladder: Unremarkable as visualized. Reproductive: Unremarkable as visualized. Bones/joints: Lumbar spine vertebral body marginal osteophytes are noted at multiple levels. L5-S1 spondylosis with bilateral neural foraminal stenosis. Soft tissues: Anterior lower abdominal wall midline mesh repair. CT/CT abdomen pelvis w con* [id number] IMPRESSION: 1. Fatty infiltration of the liver. 2. Previous gastric bypass. 3. Anterior lower abdominal wall midline mesh repair. 4. Sub 5 mm left renal benign cyst, stable. No follow-up imaging is recommended. Radiation Dose CTDIVOL = (mGy): DLP = 1880.03 (mGy-cm)
[2020-12-26 15:48] LABS: Troponin(5th) Baseline 6 ng/L (0-10)
[2020-12-26] MEDS: iohexol 300 mg/mL 100 mL Btl IV (16:08)
[2020-12-26] MEDS: lidocaine 2% viscous 15 ML, aluminum-mag hydrox-simethicon 30 ML, sucralfate oral liq 1 GM PO (17:47)
[2020-12-26] MEDS: hyDROXYzine 25 mg Capsule 50 MG PO (21:23)
[2020-12-26] MEDS: OLANZapine 5 mg ODT PO (21:24)
[2020-12-26] MEDS: trazodone 50 mg Tablet PO (21:24)
[2020-12-26] MEDS: ziprasidone hcl 60 mg Capsule PO (21:24)
[2020-12-27 06:00] VITALS: BP 130/92; PULSE 94; RESP 16; TEMP 36.8; O2SAT 98
[2020-12-27] MEDS: OLANZapine 5 mg ODT PO ×2 (06:39→21:19)
[2020-12-27] MEDS: multivitamin therapeutic Tablet 1 TAB PO (08:18)
--- NOTE | 2020-12-27 11:54 | PM.NHP ---
Providers/Chief Complaint Admitting Physician: Antonio Kwong MD Chief Complaint: SI HPI NPU History of Present Illness Yeimy Perry is a 50 year old female who presented to the emergency department with the following report: Chief Complaint: Psychiatric Symptoms Stated Complaint: SI Time Seen by Provider: 12/26/20 12:39 History of Present Illness: HPI Narrative: The patient is a 50-year-old female with past medical history alcoholism and pancreatitis. She says she is also feeling depressed like she wants to hurt herself but has no plan. Last drink of alcohol 12 hours ago and heart rate over 100. She says she began to have upper midline abdominal pain typical of her pancreatitis and has been nauseous and vomiting at home. She says she quit drinking alcohol cold however further questioning likely reveals it is from the nausea and vomiting that are preventing her from drinking. She does smell of alcohol on her breath. Associated symptoms: Deny depression. She was admitted to the neuropsychiatric unit for definitive treatment of those issues. She presents today reporting that she has been drinking again but reports this only been a week. She has been sober for about 3 months she reports. She reports feeling somewhat despondent at the fact that she has nothing to do and is seen by her life has not improve the way she wanted to. She reports that her job and relationships and different things for like there is stagnant at this time. We discussed the risk-benefit and alternatives of rehabbing Prozac she had success on before as well as increasing her Geodon and understood and agreed to proceed as is documented in this note. I have included an excerpt of her 01/26/2020 inpatient psychiatric evaluation for context that she is denied substantive changes. Per her 01/26/2020 [facility] inpatient psychiatric evaluation: History of Present Illness Yeimy Perry is a 49 year old female who presented to the emergency room with an elevated blood alcohol level, intoxicated and endorsing thoughts to kill herself. She was admitted to the neuro psych unit and reported what had occurred was she got the Antabuse that was prescribed at her previous admission and she took religiously for a month and had great success with it. Then [facility] had it on back order and she couldn't find it anywhere else and after a few days off of it there was a democrat last gathering where someone brought alcohol, and she relapsed and was fearful that it would begin a long drawnout episode and she was fearful of the return of the Warnicke Korsakoff so she came to the hospital. Now that she has slept a little bit she feels like she is going to be able to manage it while she tried to find someplace that had the medication. We attempted to call a couple places while she was here and it was on back order those places well the name brand which might be available in some places it is not covered by Medicaid and is over $700. She denied all lethality or any other issues. She reports that she is living at the same place and has no changes in her psychosocial circumstances or history as compared to her December or October hospitalizations. Diagnoses at Discharge Discharge Diagnosis (1) Wernicke-Korsakoff syndrome (alcoholic): Status: Resolved Reason for Visit Reason for Visit: Reason For Visit: acute etoh intox;suicidal ideation;96 hour hold Brief History: History of Present Illness Yeimy Perry is a 49 year old with recurrent inpatient NPU admissions for alcohol abuse, reported lethality and alcohol intoxication or withdrawal. She presents today c/o drinking continuously since Sunday(today is Sunday) and having thoughts about hurting herself with a knife. Said she needed help with suicidal thoughts and her tremors that were starting, hence came to ER. Multiple episodes of nausea and vomiting+. No hematemesis. No kosta or BRPR. C/o chronic epigastric and RUQ pain ongoing since 4 months. Bedsise US performed in ER per verbal report shows liver cirrhosis. She is s/p cholecystectomy. Other notable labs upon admission are anion gap 25 (chronic), mild hyponatremia and hypochloremia, transaminitis AST 94, ALT 76, ALP 222 (chronic), T. bili 2.6, higher than at previous admissions. Tylenol level <5, alcohol level 413. No h/o fever. Abd/pelvis CT from 04/2019 showed normal liver. Unknown hepatitis serology status Providers/Reason for Consult Consulting Physican/Specialty*: Tushar Finley M.D. Psychiatry Reason for Consult*: Severe alcohol dependency with relapse; BAL .480. Patient verbalizes suicidal ideation. Requesting Physcian: Davina Hernandez MD Attending Physician: Domingo Hoffman Primary Care Provider: SOLEDAD Carlson Psych Consult HPI History of Present Illness Yeimy Perry is a 49 year old female with recurrent inpatient NPU admissions for alcohol abuse, reported suicidality and alcohol intoxication or withdrawal. She presents today c/o drinking continuously since Sunday(today is Sunday) and having thoughts about hurting herself with a knife. Said she needed help with suicidal thoughts and her tremors that were starting, hence came to ER. Hospital Course Hospital Course The patient is now launched into emotional lability and impulsiveness. We have called [facility] and the hospital sulfuric acid plant supervisor and there is no one by her fianc?'s name who is known to have . The patient has subsequently become quite delusional of a paranoid nature and, at one point thought her son had , which is also not true as far as we are able to determine. Yeimy presented to the emergency room with an extremely elevated BAL and was transferred to the ICU. Dr. Finley did a consultation and transferred her to the neuro psych unit. At that time she was diagnosed with Warnicke Korsakoff syndrome with psychotic features and short-term memory difficulties. She was on a 96-hour hold and a 21-day hold was filed. However with the appropriate use of folic acid and thiamine along with her other medications her psychosis resolved and her memory improved dramatically. As with previous hospitalization she endorsed having it up if any and not needing inpatient hospitalization/rehab and endorsed a desire for outpatient drug and alcohol rehabilitation services. During the hospitalization she had routine laboratory studies which were within normal limits except for a few outliers. No heart murmur laboratory disturbances included in the brief history above. Additionally she had a general medical evaluation which was within normal limits revealing the delirium/Warnicke Korsakoff syndrome noted but otherwise no new acute processes. Discharge Summary At the time of discharge there was no lethality, the patient's mood was stabilized, anxiety was well managed, there is no psychosis reported or noted, the patient endorsed a plan to follow-up with the referrals that were provided. The patient endorsed a plan to avoid alcohol and all other drugs of abuse. Evaluation revealed no credible lethality and the patient had obtained the maximum benefit from an inpatient hospitalization so the individual was discharged. Meds NPU Home Medications Medication Instructions Recorded Confirmed Last Taken Type ferrous sulfate 325 mg (65 mg 325 mg PO BID #60 tab 06/30/20 12/26/20 12/26/20 Rx iron) tablet multivitamin with folic acid 400 1 tab PO DAILY 30 Days #30 tab 06/30/20 12/26/20 Unknown Rx mcg tablet ondansetron HCl [Zofran] 4 mg PO Q6H PRN #7 tab 08/07/20 12/26/20 Unknown Rx tramadol 100 mg tablet 100 mg PO Q6H PRN #10 tab 08/16/20 12/26/20 Unknown Rx Geodon 60 mg PO BEDTIME 12/26/20 12/26/20 Unknown History hydroxyzine pamoate 50 mg PO QPM PRN 12/26/20 12/26/20 12/25/20 History melatonin 3 - 6 mg PO BEDTIME PRN 12/26/20 12/26/20 Unknown History meloxicam 15 mg PO BEDTIME 12/26/20 12/26/20 Unknown History Allergies Allergy/AdvReac Type Severity Reaction Status Date / Time acetaminophen [From [facility]] AdvReac Mild ADR-Itching Verified 12/26/20 13:18 hydrocodone [From Grabill] AdvReac Mild ADR-Itching Verified 12/26/20 13:18 PFSH NPU PFSH: Medical History (Updated 12/27/20 @ 11:59 by Antonio Kwong MD) Alcohol dependence Has been prescribed antabuse Arthritis of right knee Bipolar disorder See comments below. Chronic post-traumatic stress disorder (PTSD) Depressive disorder Hx of cholecystitis Iron deficiency anemia Obesity (BMI 35.0-39.9 without comorbidity) Recurrent pancreatitis Right elbow tendinitis Suicidal thoughts in the past Surgical History History of Hx of gastric bypass Hx of hernia repair Hx of tubal ligation Hx of unilateral salpingectomy Right Family History Other Diabetes Heart disease Social History Smoking and tobacco status: never smoked Alcohol intake: current History of recent travel: No Current gender identity: Female Mental Status Exam MSE Comments: This is an obese white female with adequate dress, grooming and eye contact. She is in hospital scrubs with no abnormal movements except for mild psychomotor retardation. Cooperative with exam and in no acute distress. Speech was of slightly decreased rate and volume. Mood described as depressed, Affect is congruent. Thought process organized. Patient endorsed suicidal, but denied homicidal ideation , there were no delusions reported are noted, she denied any auditory or visual hallucinations. Attention and concentration were intact and memory appeared reliable but none were formally tested. She is alert and oriented x 3. Insight and judgment are fair. Vitals/I&O/Wt Last Vital Signs Temp 98.2 F 12/27/20 06:00 Pulse 94 12/27/20 06:00 Resp 16 12/27/20 06:00 BP 130/92 12/27/20 06:00 Pulse Ox 98 12/27/20 06:00 Weight last 48 hrs Weight 117.934 kg Data NPU : 12/26/20 13:10 12/26/20 14:45 Micro: Microbiology 12/26/20 13:27 Urine Culture - Preliminary Urine,Clean Catch Gram Negative Rods Microbiology 12/26/20 13:27 Urine,Clean Catch Urine Culture - Preliminary Gram Negative Rods A&P Assessment and plan (1) Suicidal ideation: Status: Acute (2) Acute alcoholic gastritis: Status: Acute (3) Right elbow tendinitis: Status: Acute (4) Obesity (BMI 35.0-39.9 without comorbidity): Status: Acute (5) Initial high blood pressure determined by examination: Status: Acute (6) Fracture of right great toe with routine healing: Status: Acute (7) Bipolar disorder: Status: Chronic (8) Iron deficiency anemia: Status: Acute Qualifiers: Iron deficiency anemia type: other iron deficiency Qualified Code(s): D50.8 - Other iron deficiency anemias (9) History of Wernicke's encephalopathy: Status: Acute Additional A&P Information This is a 50-year-old white female with a long alcohol addiction, current suicidal ideation and previous she has a working follow-up as a presents drinking again and endorsing lethality. 1. Continue current medication. Except start Prozac 20 mg p.o. every morning and increase her Geodon to 80 mg p.o. q. evening with meals. 2. Continue every 15 minute checks for safety. 3. Encourage individual, group and milieu therapies. 4. Encourage sober living treatment after discharge at the highest level of care to which he is willing to commit. Involuntary Hold Information 96 Hour Hold: 96 Hour Involuntary Admission: No Attestations NPU Medical Necessity Statement*: Inpatient hospitalization is medically necessary and the clinically appropriate intervention at this time. We will monitor medications and make changes as indicated. Patient will be in the hospital for over two midnights. Likely length of stay 2-5 days. Coding Level of Care Code Acute Padded Products Inspector Trimmer for Chg Fwd Diagnoses Suicidal ideation R45.851 Acute alcoholic gastritis K29.20 Right elbow tendinitis M77.8 Obesity (BMI 35.0-39.9 without comorbidity) E66.9 Initial high blood pressure determined by examination I10 Fracture of right great toe with routine healing S92.401D Bipolar disorder F31.9 Iron deficiency anemia D50.8 Iron deficiency anemia type: other iron deficiency History of Wernicke's encephalopathy Z86.69
[2020-12-27 14:00] VITALS: BP 115/72; PULSE 80; RESP 16; TEMP 37.3; O2SAT 96
[2020-12-27] MEDS: hyDROXYzine 25 mg Capsule 50 MG PO (21:19)
[2020-12-27] MEDS: ziprasidone hcl 60 mg Capsule PO (21:19)
[2020-12-27] MEDS: trazodone 50 mg Tablet PO (21:19)
[2020-12-27 22:00] VITALS: BP 130/88; PULSE 109; RESP 20; TEMP 37.1; O2SAT 97
[2020-12-27] MEDS: haloperidol 5 mg Tablet PO (22:05)
[2020-12-28 06:36] VITALS: BP 110/73; PULSE 77; RESP 17; TEMP 37.1; O2SAT 95
[2020-12-28] MEDS: multivitamin therapeutic Tablet 1 TAB PO (08:28)
[2020-12-28] MEDS: ferrous sulfate EC 325 mg Tablet PO ×2 (08:28→20:18)
[2020-12-28] MEDS: fluoxetine 20 mg Capsule PO (10:58)
[2020-12-28 14:00] VITALS: BP 139/94; PULSE 101; RESP 16; TEMP 36.3; O2SAT 99
--- NOTE | 2020-12-28 18:57 | PM.NPN ---
Subjective NPU Subjective: Interval history: Yeimy presents today reporting that she is feeling a little better. We had a long conversation about how she is going to get the alcohol out of her life because he reports ongoing hallucinations. We discussed how in the past hospitalization she had these hallucinations for few days before they cleared up. Talked about Warnicke Korsakoff syndrome and this financial underwriter's fear that her lack of good nutrition combined with her drinking is putting her in a dangerous predicament. She understood the importance of her discontinuing her alcohol use but also appreciates the challenge. Mental Status Exam MSE Comments: This is an obese white female with adequate dress, grooming and eye contact. She is in hospital scrubs with no abnormal movements except for mild psychomotor retardation. Cooperative with exam and in no acute distress. Speech was of slightly decreased rate and volume. Mood described as depressed, Affect is congruent. Thought process organized. Patient endorsed suicidal, but denied homicidal ideation , there were no delusions reported or noted, she endorsed auditory and visual hallucinations. Attention and concentration were intact and memory appeared reliable but none were formally tested. She is alert and oriented x 3. Insight and judgment are fair. Vitals/I&O/Wt Last Vital Signs Temp 99.1 F 12/28/20 19:52 Pulse 86 12/28/20 19:52 Resp 17 12/28/20 19:52 BP 158/112 12/28/20 19:52 Pulse Ox 97 12/28/20 19:52 Data NPU : 12/26/20 13:10 12/26/20 14:45 Micro: Microbiology 12/26/20 13:27 Urine Culture - Final Urine,Clean Catch Escherichia coli Microbiology 12/26/20 13:27 Urine,Clean Catch Urine Culture - Final Escherichia coli A&P Additional A&P Information (1) Suicidal ideation: (2) Acute alcoholic gastritis: (3) Right elbow tendinitis: (4) Obesity (BMI 35.0-39.9 without comorbidity): (5) Initial high blood pressure determined by examination: (6) Fracture of right great toe with routine healing: (7) Bipolar disorder: (8) Iron deficiency anemia: (9) History of Wernicke's encephalopathy: Additional A&P Information This is a 50-year-old white female with a long alcohol addiction, current suicidal ideation and previous she has a working follow-up as a presents drinking again and endorsing lethality. 1. Continue current medication. 2. Continue every 15 minute checks for safety. 3. Encourage individual, group and milieu therapies. 4. Encourage sober living treatment after discharge at the highest level of care to which she is willing to commit. Involuntary Hold Information 96 Hour Hold: 96 Hour Involuntary Admission: No Attestations NPU Medical Necessity Statement*: Inpatient hospitalization is medically necessary and the clinically appropriate intervention at this time. We will monitor medications and make changes as indicated. Likely length of stay 2-4 days. Coding Level of Care Code Acute Security Strategist for Hannah Fulton
[2020-12-28 19:52] VITALS: BP 158/112; PULSE 86; RESP 17; TEMP 37.3; O2SAT 97
[2020-12-28] MEDS: meloxicam 7.5 mg tablet 15 MG PO (20:17)
[2020-12-28] MEDS: ziprasidone hcl 60 mg Capsule PO (20:18)
[2020-12-28] MEDS: loperamide 2 mg Capsule PO (20:18)
[2020-12-28] MEDS: hyDROXYzine 25 mg Capsule 50 MG PO (20:18)
--- NOTE | 2020-12-28 20:19 | PC.NURSE ---
requested 50mg visteril for anxiety
[2020-12-29 06:00] VITALS: BP 121/81; PULSE 83; RESP 17; TEMP 36.9; O2SAT 94
[2020-12-29] MEDS: multivitamin therapeutic Tablet 1 TAB PO (08:15)
[2020-12-29] MEDS: fluoxetine 20 mg Capsule PO (08:16)
[2020-12-29] MEDS: ferrous sulfate EC 325 mg Tablet PO ×2 (08:16→20:49)
[2020-12-29] MEDS: hyDROXYzine 25 mg Capsule 50 MG PO ×2 (13:18→20:50)
--- NOTE | 2020-12-29 13:18 | PC.NURSE ---
Addendum entered by Alicja Arzola LPN 12/29/20 15:56: PRN MED EFFECTIVE NO FURTHER C/O ANXIETY Original Note: PRN VISTARIL 50 MG GIVEN PO PER PT C/O STATED ANXIETY. WILL CONT TO MONITOR
[2020-12-29 14:00] VITALS: BP 135/96; PULSE 89; RESP 20; TEMP 36.2; O2SAT 96
--- NOTE | 2020-12-29 18:30 | PM.NPN ---
Subjective NPU Subjective: Interval history: Yeimy presents today as the first day without hallucinations noted. Made a long conversation about the risks of her having these episodes and the risk of Warnicke encephalopathy happening at the intersection of her poor nutrition and continued alcohol use. She seemed to be returning to her actual self for the first time the possibility of discharge tomorrow. Mental Status Exam MSE Comments: This is an obese white female with adequate dress, grooming and eye contact. She is in hospital scrubs with no abnormal movements except for resolving psychomotor retardation. Cooperative with exam and in no acute distress. Speech was more normal rate and volume. Mood described as better, affect is congruent. Thought process organized. Patient denied suicidal or homicidal ideation , there were no delusions reported or noted, she denied auditory or visual hallucinations. Attention and concentration were intact and memory appeared reliable but none were formally tested. She is alert and oriented x 3. Insight and judgment are fair and improving. Vitals/I&O/Wt Last Vital Signs Temp 99.3 F 12/29/20 20:27 Pulse 95 12/29/20 20:27 Resp 17 12/29/20 20:27 BP 143/99 12/29/20 20:27 Pulse Ox 97 12/29/20 20:27 Data NPU : 12/26/20 13:10 12/26/20 14:45 A&P Additional A&P Information (1) Suicidal ideation: (2) Acute alcoholic gastritis: (3) Right elbow tendinitis: (4) Obesity (BMI 35.0-39.9 without comorbidity): (5) Initial high blood pressure determined by examination: (6) Fracture of right great toe with routine healing: (7) Bipolar disorder: (8) Iron deficiency anemia: (9) History of Wernicke's encephalopathy: Additional A&P Information This is a 50-year-old white female with a long alcohol addiction, current suicidal ideation and previous she has a working follow-up as a presents drinking again and endorsing lethality. 1. Continue current medication. 2. Continue every 15 minute checks for safety. 3. Encourage individual, group and milieu therapies. 4. Encourage sober living treatment after discharge at the highest level of care to which she is willing to commit. 5. MedSurg in the morning Involuntary Hold Information 96 Hour Hold: 96 Hour Involuntary Admission: No Attestations NPU Medical Necessity Statement*: Inpatient hospitalization is medically necessary and the clinically appropriate intervention at this time. We will monitor medications and make changes as indicated. Plan for discharge in the morning. Coding Level of Care Code Acute Power Plant Technician for Hannah Fulton
--- NOTE | 2020-12-29 18:44 | P.PN_ITS ---
NPU Therapy Progress Note Therapy Progress Note Date: 12/29/20 Time In: 19:25 Time Out: 19:40 Symptoms Reported: none Mood: stable, positive Progress Note: Yeimy was found to be sitting quietly in the dayroom watching T.V. She was agreeable to speak with this COMMISSION SPECIALIST. Yeimy tells COMMISSION SPECIALIST she was clean 90 days from alcohol; however, relapsed after her boyfriend decided to have beers for his birthday and she made the decision to drink multiple bottles of alcohol because of this. She states i thought i could have just one bottle and be done . Yeimy did take herself to the ER after realizing she had suicidal thoughts. She remembered she promised a friend that if she ever had SI thoughts again, she would seek help. She reports strained relationship with her live-in boyfriend due to her alcoholism and he has given her an ultimatum that he will move out if she comes home and again relapses. Yeimy reports she is active in therapy services and sees Eric Hartman. She sees Daisy Brown for med services at [facility]. Intervention: COMMISSION SPECIALIST listened and provided support. Yeimy was praised for seeking out help when she needed it. COMMISSION SPECIALIST and Yeimy discussed her triggers and elevated stress leading up to her decision to drink. She believes she was working too many hours at her job. Yeimy has plans to follow up with both providers and get back on track with her sobriety. Reported Goals Before Discharge: see the tomorrow and hopefully get discharged
[2020-12-29] MEDS: loperamide 2 mg Capsule PO (19:48)
[2020-12-29 20:27] VITALS: BP 143/99; PULSE 95; RESP 17; TEMP 37.4; O2SAT 97
[2020-12-29] MEDS: ziprasidone hcl 40 mg Capsule 80 MG PO (20:50)
[2020-12-29] MEDS: meloxicam 7.5 mg tablet 15 MG PO (20:50)
[2020-12-29] MEDS: OLANZapine 5 mg ODT PO (23:15)
--- NOTE | 2020-12-30 00:48 | PC.NURSE ---
DIARRHEA X3 PT REPORTS HAVING 3 LARGE EPISODES OF DIARRHEA, PT REQUESTED MEDICATION FROM STAFF, MED NURSE NOTIFIED, PT RECEIVED MEDICATION TO SETTLE BOWELS, PT SLEEPING AT THIS TIME.
--- NOTE | 2020-12-30 02:49 | PC.NURSE ---
pm assessment bowel sounds are hyperacetive at this time, pt reports nausea, reports abdominal pain/discomfort that she feels is related to the medications she has been taking. Pt reports diarrhea, requested PRN medicaiton for this discomfort. Med nurse notified. currently, patient is sleeping without any complainsw
[2020-12-30 06:00] VITALS: BP 128/82; PULSE 75; RESP 17; TEMP 36.9; O2SAT 97
[2020-12-30] MEDS: fluoxetine 20 mg Capsule PO (07:37)
[2020-12-30] MEDS: ferrous sulfate EC 325 mg Tablet PO (07:37)
[2020-12-30] MEDS: multivitamin therapeutic Tablet 1 TAB PO (07:37)
[2020-12-30] MEDS: acetaminophen 325 mg Tablet 650 MG PO (11:01)
[2020-12-30 11:08] LABS: Alanine Aminotransferase 47 U/L (0-33); Albumin Level 3.4 g/dL (3.5-5.2); Alkaline Phosphatase 95 IU/L (35-105); Amylase 33 U/L (28-100); Anion Gap 11.7 (5-19); Aspartate Amino Transferase 53 U/L (0-32); Blood Urea Nitrogen 8 mg/dL (6-20); Calcium 8.4 mg/dL (8.5-10.5); Carbon Dioxide 26 mmol/L (22-29); Chloride 106 mmol/L (98-107); Globulin 2.6 g/dL (1.3-4.6); Glomerular Filtration Rate 89.3 mL/min (90-130); Glucose 102 mg/dL (65-115); Lipase 57 U/L (13-60); Osmolality Calculated 289 mOsm/kg (285-295); Potassium 3.7 mmol/L (3.5-5.1); Sodium 140 mmol/L (136-145); Total Bilirubin 0.4 mg/dL (0.15-1.2)
[2020-12-30 11:47] LABS: Bilirubin Urine 1+ (Negative); Blood Urine 3+ (Negative); Glucose Urine UA Norm (Normal); Ketones Urine Negative (Negative); Nitrate Urine Negative (Negative); Protein Urine Trace (Negative); Specific Gravity, Urine 1.015 (1.005-1.030); Urine Appearance Cloudy (CLEAR); Urine Color Yellow (Yellow); Urobilinogen Urine 1 mg/dL (Negative); pH Urine 5 (5-7)
[2020-12-30 11:48] LABS: Add Urine Microscopic? YES; Leukocyte Esterase Urine 2+ (Negative)
[2020-12-30 11:54] LABS: Add Urine Culture? No; Bacteria Urine 1+ /hpf; Mucus Urine 2+ /hpf; Squamous Epithelial Cell Urine 25-40 /hpf (0-5); WBC Urine 25-40 /hpf (0-5)
--- NOTE | 2020-12-30 12:13 | PM.NDC ---
Diagnoses at Discharge Discharge Diagnosis (1) Suicidal ideation: Status: Acute (2) Acute alcoholic gastritis: Status: Acute (3) Right elbow tendinitis: Status: Acute (4) Obesity (BMI 35.0-39.9 without comorbidity): Status: Acute (5) Initial high blood pressure determined by examination: Status: Acute (6) Fracture of right great toe with routine healing: Status: Acute (7) Bipolar disorder: Status: Chronic (8) Iron deficiency anemia: Status: Acute Qualifiers: Iron deficiency anemia type: other iron deficiency Qualified Code(s): D50.8 - Other iron deficiency anemias (9) History of Wernicke's encephalopathy: Status: Acute Reason for Visit Reason for Visit: SI Hospital Course Hospital Course 50-year-old female with longstanding history of alcohol use disorder presented to the emergency department alcohol intoxication and suicidal ideation. Patient with multiple medical issues related to her longstanding use of alcohol to include history of pancreatitis which was not present at the time of her initial evaluation emergency department as well as suspected Wernicke's encephalopathy. Patient was placed on CIWA protocol and observed as well as restarted on her home medications. Patient's Geodon was increased to Geodon 80 mg at bedtime with no reports of medication side effects. Patient quickly reconstituted with no reports of any behavioral disturbances and no reports of complicated alcohol withdrawal. Patient no longer endorsed any suicidal ideation and denied any sustained depressive symptoms. Patient was not suicidal and did not appear to pose an imminent threat of harm to self or others at the time of discharge. Patient was noted to have a UA positive for urinary tract infection and was started on Bactrim DS twice daily continued at the time of discharge. Low to moderate risk of harm to self and others given no current suicidal ideation and no current endorsement of psychiatric symptoms as well as patient's previous demonstration of compliance with follow-up. Patient's risk will continue to be elevated if she continues to be noncompliant with recommendation to abstain from use of alcohol and substances leading to unexpected, impulsive behavior. Risk mitigation included psychiatric hospitalization for observation for return of any suicidal ideation or worsening psychiatric symptoms, medication stabilization as well as recommendation to abstain from use of substances and alcohol and recommended follow on substance counseling and compliance with her medication and medication management follow-up. Patient was able to communicate her understanding of the need to abstain from use of substances and alcohol as well as the need for compliance with her medication, medication management and substance counseling follow-up in order to further mitigate her risk of harm to self and others. Involuntary Hold Information 96 Hour Hold: 96 Hour Involuntary Admission: No Mental Status Exam MSE Comments: Appears older than stated age, obese, tired appearing, unkempt, calm, ecchymosis below the left eye, cooperative, interactive, good eye contact Psychomotor activity is neither increased nor decreased, no agitation Speech is normal rate and volume, spontaneous, clear articulation, not pressured I feel much better, full range, not labile Alert and oriented to person, place, time, situation Memory and concentration appear to be intact per interview Intellectual functioning appears to be average based on vocabulary, interview Thought process, linear Thought content, no delusions, no hallucinations, no suicidal homicidal ideation Insight and judgment appear to be fair Discharge Data Data Completed and Pending: Completed Studies During Hospitalization Category Date Time Status CT abdomen pelvis w con* [id number] Urge nt Cat Scan 12/26/20 15:[address] orbit BI wo co n* [id number] Stat Cat Scan 12/26/20 14:01 Completed XR chest 1V miladys ble [id number] Urgent Exams 12/26/20 12:49 Completed Labs from last 24 hours 12/30/20 12/30/20 11:10 10:21 Sodium 140 Potassium 3.7 Chloride 106 Carbon Dioxide 26 Anion Gap 11.7 BUN 8 Creatinine 0.7 GFR Calculation 89.3 L Glucose 102 Calculated Osmolal ity 289 Calcium 8.4 L Total Bilirubin 0.4 AST 53 H ALT 47 H Alkaline Phosphata se 95 Total Protein 6.0 L Albumin 3.4 L Globulin 2.6 Amylase 33 Lipase 57 Urine Color Yellow Urine Appearance Cloudy Urine pH 5 Ur Specific Gravit y 1.015 Urine Protein Trace Urine Glucose (UA) Norm Urine Ketones Negative Urine Blood 3+ H Urine Nitrate Negative Urine Bilirubin 1+ H Urine Urobilinogen 1 H Ur Leukocyte Marlys ase 2+ H Urine RBC 5-10 H Urine WBC 25-40 H Ur Squamous Epith Cells 25-40 H Amorphous Sediment Not Reportable Urine Bacteria 1+ H Urine Mucus 2+ Vitals: Last Vital Signs Temp 98.4 F 12/30/20 06:00 Pulse 75 12/30/20 06:00 Resp 17 12/30/20 06:00 BP 128/82 12/30/20 06:00 Pulse Ox 97 12/30/20 06:00 Discharge Plan Discharge Patient Disposition: Home Condition: Stable Prescriptions: New fluoxetine 20 mg Capsule 20 mg PO DAILY Qty: 30 RF: 0 ziprasidone HCl 40 mg Capsule 80 mg PO BEDTIME Qty: 30 RF: 0 sulfamethoxazole-trimethoprim 800-160 mg Tablet 1 tab PO BID Qty: 20 RF: 0 Continued Thera 400 mcg tablet 1 tab PO DAILY 30 Days Qty: 30 RF: 12 ferrous sulfate 325 mg (65 mg iron) tablet 325 mg PO BID Qty: 60 RF: 12 tramadol 100 mg tablet 100 mg PO Q6H PRN (Reason: pain) Qty: 10 RF: 0 meloxicam 15 mg tablet 15 mg PO BEDTIME RF: 0 hydroxyzine pamoate 50 mg capsule 50 mg PO QPM PRN (Reason: anxiety/insomnia) RF: 0 melatonin 3 mg capsule 3 - 6 mg PO BEDTIME PRN (Reason: sleep) RF: 0 dicyclomine 20 mg Tablet 20 mg PO QID PRN (Reason: bowel irritability) RF: 0 ondansetron HCl [Zofran] 4 mg tablet 4 mg PO Q6H PRN (Reason: nausea and vomiting) Qty: 7 RF: 0 Discontinued Geodon 60 mg capsule 60 mg PO BEDTIME RF: 0 Referrals: [facility] [Other] (Sunday, Sunday at 7PM and Sundays at 7PM. ) Eric Hartman LCSW [Referring] - 01/12/21 9:00 am (Therapy appointment. Let [facility] know ahead of time if you would like to do this appointment in person instead of over the phone.) Rosa Win APRN [Nurse Practitioner] - 01/13/21 8:15 am (Phone appointment) Discharge Attestations NPU Time Spent in Discharge Care*: greater than 30 min Status at Discharge: Cognitive status at discharge: cognitively intact, Behavioral status at discharge: cooperative, Functional status at discharge: independent ambulation Overall status at discharge: patient is back to baseline Coding Level of Care Code Acute Clinical Informatics Educator for g Fwd Diagnoses Suicidal ideation R45.851 Acute alcoholic gastritis K29.20 Right elbow tendinitis M77.8 Obesity (BMI 35.0-39.9 without comorbidity) E66.9 Initial high blood pressure determined by examination I10 Fracture of right great toe with routine healing S92.401D Bipolar disorder F31.9 Iron deficiency anemia D50.8 Iron deficiency anemia type: other iron deficiency History of Wernicke's encephalopathy Z86.69
[2020-12-30] MEDS: sulfamethoxazole-trimeth DS 160-800 mg Tablet 1 TAB PO (12:45)
[2020-12-30 13:54] VITALS: BP 128/82; PULSE 75; RESP 17; TEMP 36.9; O2SAT 97
== END 2020-12-30 14:25 | disposition home or self-care (01) | DRG 897 ==
LOC: ER 17:13 → NP 17:40
PROVIDERS: Emergency Medicine; Psychiatry & Neurology Psychiatry; Admitting Provider Psychiatry & Neurology Psychiatry; Emergency Provider Family Medicine; Visit Provider Psychiatry & Neurology Psychiatry
DX: F10.129 Alcohol abuse with intoxication, unspecified (principal); F33.9 Major depressive disorder, recurrent, unspecified; R45.851 Suicidal ideations; N39.0 Urinary tract infection, site not specified; E51.2 Wernicke's encephalopathy; K29.20 Alcoholic gastritis without bleeding; M17.11 Unilateral primary osteoarthritis, right knee; F43.12 Post-traumatic stress disorder, chronic; D50.8 Other iron deficiency anemias; E66.9 Obesity, unspecified; Z68.39 Body mass index [BMI] 39.0-39.9, adult; Z98.84 Bariatric surgery status; M77.8 Other enthesopathies, not elsewhere classified; S92.401D Displaced unspecified fracture of right great toe, subsequent encounter for fracture with routine healing; X58.XXXD Exposure to other specified factors, subsequent encounter; I10 Essential (primary) hypertension
CPT/HCPCS: 36415; 70480; 71045; 74177; 80053; 80306; 80307; 81001; 81025; 82150; 83690; 84443; 84484; 85025; 87077; 87086; 87186; 93005; 96374; 96375; 99285; J2060; J2405; J7030; Q9967

== ENCOUNTER 2021-01-11 02:40 | Inpatient (IN) | payer MEDICAID, SELFPAY ==
[2021-01-11] VITALS (8 sets, daily range): BP systolic 92–150; BP diastolic 62–106; PULSE 93–120; RESP 16–22; TEMP 36.8–37.2; O2SAT 92–98; BMI 38.0
--- NOTE | 2021-01-11 02:44 | W.ED.ALCOHOL ---
HPI - Alcohol General: Chief Complaint: Alcohol Stated Complaint: ETOH, SI Time Seen by Provider: 01/11/21 02:41 Source: patient and EMS Mode of arrival: EMS Limitations: no limitations History of Present Illness: HPI narrative: 50-year-old female who is well-known to the ED states she feels like she is going to withdrawals. Patient is a chronic alcoholic and states she has not had a drink in 12 to 24 hours. States she is feeling shaky. She has had some nausea with no vomiting. She denies any seizures. Patient is a little disheveled here but otherwise well-appearing. Associated symptoms: Reports nausea and vomiting; Deny abdominal pain or depression Review of Systems Const: Denies: fever(s), chills, body aches or change in appetite Eyes: Denies: blurry vision or eye discomfort ENMT: Denies: throat pain or dental pain Card: Denies: chest pain Resp: Denies: dyspnea GI: Reports: nausea and vomiting; Denies: abdominal pain or diarrhea : Denies: dysuria Musc: Denies: neck pain or back pain Skin/Breast: Denies: rash Neuro: Denies: headache(s) Psych: Denies: depression Marlon/Lymph: Denies: easy bruising All/Imm: Denies: urticaria PFSH ED PFSH: Medical History (Updated 01/11/21 @ 04:28 by Jerri Sarabia MD) Alcohol dependence Has been prescribed antabuse Arthritis of right knee Bipolar disorder Chronic post-traumatic stress disorder (PTSD) Depressive disorder Hx of cholecystitis Iron deficiency anemia Obesity (BMI 35.0-39.9 without comorbidity) Recurrent pancreatitis Right elbow tendinitis Suicidal thoughts in the past Surgical History History of Hx of gastric bypass Hx of hernia repair Hx of tubal ligation Hx of unilateral salpingectomy Right Family History Other Diabetes Heart disease Social History Smoking and tobacco status: never smoked Alcohol intake: current History of recent travel: No Current gender identity: Female Female Reproductive History: Date of last menstrual period: 04/09/20 Physical Exam Const: COMMON NORMALS: patient oriented x3 GENERAL APPEARANCE: disheveled HENMT: COMMON NORMALS: normocephalic and atraumatic HEAD & SCALP: normocephalic and atraumatic Eye: COMMON NORMALS: Equal, round and reactive pupils present and EOMs intact bilaterally PUPIL: Yes Equal, round and reactive pupils present Neck/C-Spine: COMMON NORMALS: full ROM and supple Chest: COMMONS NORMALS: normal inspection of the chest and normal palpation of entire chest wall Resp: COMMON NORMALS: normal respiratory effort, No retractions, No use of accessory muscles and clear to auscultation bilaterally AUSCULTATION: clear to auscultation bilaterally Cardio: COMMON NORMALS: regular rate, regular rhythm and No murmurs present (Cardio) RATE: regular rate RHYTHM: regular rhythm GI: COMMON NORMALS: Normal to inspection, nondistended, normoactive bowel sounds present, Soft to palpation, non-tender and no masses PALPATION: Yes Soft to palpation Extremity: COMMON NORMALS: normal to inspection and full ROM Neuro: COMMON NORMALS: patient oriented x3, moves all extremities and no focal motor deficits Psych: COMMON NORMALS: mental status grossly normal, Normal thought process present and cooperative THOUGHT PROCESS: Normal thought process present Skin: COMMON NORMALS: no rashes or lesions noted and no wounds GENERAL SKIN EXAM: no rashes or lesions noted Course Vital Signs: Vital signs: Vital Signs Temperature 98.3 F 01/11/21 02:42 Pulse Rate 98 01/11/21 03:30 Respiratory Rate 17 01/11/21 03:30 Blood Pressure 114/81 01/11/21 03:30 Pulse Oximetry 93 01/11/21 03:30 MDM - Alcohol MDM Narrative: Medical decision making narrative: Yeimy presents here with suicidal ideation along with alcohol intoxication. I spoke to Dr. Kwong who saw patient over telehealth and recommended observation admission. She has been stable here. She has no signs of withdrawals. Lab Data: Labs: Lab Results 01/11/21 01/11/21 01/11/21 Range/Units 03:10 03:20 03:20 WBC 5.6 (4.0-10.0) 10^3/ uL RBC 4.77 (4.1-5.3) 10^6/u L Hgb 14.7 (11.5-15.3) g/dL Hct 43.4 (37.0-47.0) % MCV 91.0 (81-99) fL MCH 30.8 (28.0-34.0) pg MCHC 33.9 (30.0-36.0) g/dL RDW 14.6 (12.1-15.1) % Plt Count 315 (130-400) 10^3/c mm MPV 8.5 (7.4-10.4) fL Neut % (Auto) 69.6 % Lymph % (Auto) 20.6 % [place] % (Auto) 8.2 % Eos % (Auto) 0.2 % Baso % (Auto) 0.9 % Neut # (Auto) 3.92 (1.8-7.7) 10^3/u L Lymph # (Auto) 1.2 (0.8-4.8) 10^3/u L [place] # (Auto) 0.5 (0.2-0.9) 10^3/u L Eos # (Auto) 0.0 (0.0-0.8) 10^3/u L Baso # (Auto) 0.1 (0.0-0.1) 10^3/u L Nucleated RBC % (a uto) 0 % Nucleated RBCs # 0.0 /100WBC Sodium 138 (136-145) mmol/L Potassium 3.7 (3.5-5.1) mmol/L Chloride 97 L (98-107) mmol/L Carbon Dioxide 23 (22-29) mmol/L Anion Gap 21.7 H (5-19) BUN 10 (6-20) mg/dL Creatinine 0.6 (0.5-0.9) mg/dL GFR Calculation 106.7 (90-130) mL/min Glucose 115 (65-115) mg/dL Calculated Osmolal ity 286 (285-295) mOsm/k g Calcium 8.3 L (8.5-10.5) mg/dL Total Bilirubin 1.4 H (0.15-1.2) mg/dL AST 46 H (0-32) U/L ALT 55 H (0-33) U/L Alkaline Phosphata se 155 H (35-105) IU/L Total Protein 7.0 (6.6-8.7) g/dL Albumin 4.0 (3.5-5.2) g/dL Globulin 3.0 (1.3-4.6) g/dL Salicylates < 0.3 L (3-10) mg/dL Urine Opiates Scre en Negative (Negative) ng/mL Acetaminophen < 5.0 L (10-30) ug/mL Ur Barbiturates Sc reen Negative (Negative) ng/mL Ur Phencyclidine S crn Negative (Negative) ng/mL Ur Amphetamines Sc reen Negative (Negative) ng/mL U Benzodiazepines Scrn Negative (Negative) ng/mL Urine Cocaine Scre en Negative (Negative) ng/mL U Marijuana (THC) Screen Negative (Negative) ng/mL Ethyl Alcohol 174 H (0-10) mg/dL Discharge Plan Discharge Patient Disposition: Placed in Observation Clinical Impression: Suicidal ideation Alcoholic intoxication Qualifiers: Complication of substance-induced condition: uncomplicated Qualified Code(s): F10.920 - Alcohol use, unspecified with intoxication, uncomplicated Coding Level of Care Code ED Community Education Specialist for Hannah Fulton Exam Comprehensive
[2021-01-11] MEDS: LORazepam 2 mg/mL INJ 1 mL IM (03:06)
[2021-01-11] MEDS: multivitamin therapeutic Tablet 1 TAB PO ×2 (03:09→09:01)
[2021-01-11 03:27] LABS: Basophils # 0.1 10^3/uL (0.0-0.1); Basophils % 0.9 %; Eosinophils % 0.2 %; Hematocrit 43.4 % (37.0-47.0); Hemoglobin 14.7 g/dL (11.5-15.3); Lymphocytes # 1.2 10^3/uL (0.8-4.8); Lymphocytes % 20.6 %; Mean Corpuscular HGB Conc 33.9 g/dL (30.0-36.0); Mean Corpuscular Hemoglobin 30.8 pg (28.0-34.0); Mean Platelet Volume 8.5 fL (7.4-10.4); Monocytes # 0.5 10^3/uL (0.2-0.9); Monocytes % 8.2 %; Neutrophils # 3.92 10^3/uL (1.8-7.7); Neutrophils % 69.6 %; Nucleated Red Blood Cells % 0 %; Platelet Count 315 10^3/cmm (130-400); Red Blood Count 4.77 10^6/uL (4.1-5.3); Red Cell Distribution Width 14.6 % (12.1-15.1); White Blood Count 5.6 10^3/uL (4.0-10.0)
[2021-01-11 03:36] LABS: Amphetamines Screen Urine Negative (Negative); Barbiturates Screen Urine Negative (Negative); Benzodiazepines Screen Urine Negative (Negative); Cocaine Screen Urine Negative (Negative); Opiate Screen Urine Negative (Negative); PCP Screen Urine Negative (Negative); THC Screen Urine Negative (Negative)
[2021-01-11 03:49] LABS: Alanine Aminotransferase 55 U/L (0-33); Alcohol Level 174 mg/dL (0-10); Alkaline Phosphatase 155 IU/L (35-105); Anion Gap 21.7 (5-19); Aspartate Amino Transferase 46 U/L (0-32); Blood Urea Nitrogen 10 mg/dL (6-20); Calcium 8.3 mg/dL (8.5-10.5); Carbon Dioxide 23 mmol/L (22-29); Chloride 97 mmol/L (98-107); Creatinine Clr Calc Pharmacy 151.5111; Glomerular Filtration Rate 106.7 mL/min (90-130); Glucose 115 mg/dL (65-115); Osmolality Calculated 286 mOsm/kg (285-295); Potassium 3.7 mmol/L (3.5-5.1); Sodium 138 mmol/L (136-145); Total Bilirubin 1.4 mg/dL (0.15-1.2)
[2021-01-11 03:51] LABS: Acetaminophen < 5.0 ug/mL (10-30); Salicylate < 0.3 mg/dL (3-10)
[2021-01-11 06:26] LABS: Glucose Point of Care 153 mg/dL (70-110)
[2021-01-11] MEDS: ferrous sulfate EC 325 mg Tablet PO ×2 (09:02→20:18)
[2021-01-11] MEDS: folic acid 1 mg Tablet PO (09:02)
[2021-01-11] MEDS: thiamine 100 mg Tablet PO (09:02)
[2021-01-11] MEDS: fluoxetine 20 mg Capsule PO (09:02)
--- NOTE | 2021-01-11 12:51 | PM.NHP ---
Providers/Chief Complaint Admitting Physician: Anastacia Senior DO Chief Complaint: ETOH HPI NPU History of Present Illness Yeimy Perry is a 50 year old female well known to the unit with longstanding history of alcohol dependence as well as multiple chronic medical issues some related to her ongoing alcohol use such as pancreatitis presenting to the emergency department and withdrawal requesting hospitalization and also endorsing suicidal ideation. Patient continues to report passive suicidal thoughts which she states is intermittent and reports that alcohol use seems to exacerbate this although patient states that she has had difficulty stopping her alcohol use and currently states that she has no desire to attend residential substance treatment although she will attend outpatient treatment. Patient states that she has been drinking around 2 pints a day. Continues to report feeling tremulous with shakes, stomach cramping, some difficulty sleeping. Patient is vague with regards to depressive symptoms but does report feeling down and low, decreased motivation. Reports that she has been experiencing some auditory hallucinations over the past 24 to 48 hours, denies any delusions. Patient states that she has not been compliant with any follow-up post discharge from this unit 12 days ago. Meds NPU Home Medications Medication Instructions Recorded Confirmed Last Taken Type ferrous sulfate 325 mg (65 mg 325 mg PO BID #60 tab 06/30/20 01/11/21 12/26/20 Rx iron) tablet multivitamin with folic acid 400 1 tab PO DAILY 30 Days #30 tab 06/30/20 01/11/21 Unknown Rx mcg tablet ondansetron HCl [Zofran] 4 mg PO Q6H PRN #7 tab 08/07/20 01/11/21 Unknown Rx hydroxyzine pamoate 50 mg PO QPM PRN 12/26/20 01/11/21 12/25/20 History meloxicam 15 mg PO BEDTIME 12/26/20 01/11/21 Unknown History dicyclomine 20 mg PO QID PRN 12/27/20 01/11/21 Unknown History fluoxetine 20 mg PO DAILY #30 cap 12/30/20 01/11/21 Unknown Rx ziprasidone HCl 80 mg PO BEDTIME #30 cap 12/30/20 01/11/21 Unknown Rx Allergies Allergy/AdvReac Type Severity Reaction Status Date / Time acetaminophen [From [place]] AdvReac Mild ADR-Itching Verified 12/26/20 13:18 hydrocodone [From [place]] AdvReac Mild ADR-Itching Verified 12/26/20 13:18 PFSH NPU PFSH: Medical History (Updated 01/11/21 @ 04:28 by Jerri Sarabia MD) Alcohol dependence Has been prescribed antabuse Arthritis of right knee Bipolar disorder Chronic post-traumatic stress disorder (PTSD) Depressive disorder Hx of cholecystitis Iron deficiency anemia Obesity (BMI 35.0-39.9 without comorbidity) Recurrent pancreatitis Right elbow tendinitis Suicidal thoughts in the past Surgical History History of Hx of gastric bypass Hx of hernia repair Hx of tubal ligation Hx of unilateral salpingectomy Right Family History Other Diabetes Heart disease Social History Smoking and tobacco status: never smoked Alcohol intake: current History of recent travel: No Current gender identity: Female Other Psychiatric History: Other Psychiatric History: Patient denies any changes since last H&P completed within the last couple weeks Mental Status Exam MSE Comments: Appropriately groomed and dressed, appears older than stated age, obese, tired appearing, calm, cooperative, interactive, good eye contact Psychomotor activity is neither increased nor decreased, no agitation Speech is normal rate and volume, spontaneous, clear articulation, not pressured I feel horrible tired, full range, not labile Alert and oriented to person, place, time, situation Memory and concentration appear to be intact per interview Intellectual functioning appears to be average based on vocabulary, interview Thought process, linear Thought content, no delusions, no hallucinations, no suicidal homicidal ideation Insight and judgment appear to be fair Vitals/I&O/Wt Last Vital Signs Temp 99.0 F 01/11/21 12:47 Pulse 120 H 01/11/21 12:47 Resp 17 01/11/21 12:47 BP 139/89 01/11/21 12:47 Pulse Ox 96 01/11/21 12:47 Weight last 48 hrs Weight 113.398 kg Data NPU : 01/11/21 03:20 01/11/21 03:20 A&P Assessment and plan (1) Alcohol use disorder, severe, dependence: Status: Chronic (2) Suicidal ideation: Status: Acute (3) Chronic post-traumatic stress disorder (PTSD): Status: Chronic Additional A&P Information Patient with longstanding history of presenting to the hospital under similar circumstances of alcohol intoxication with suicidal ideation and subsequently reporting alcohol withdrawal symptoms with worsening mood symptoms. Patient does have longstanding history of chronic posttraumatic stress disorder, reports ongoing mood symptoms, states been drinking daily a couple pints per day and would likely benefit from medically managed withdrawal as well as coordination for post discharge substance treatment which the patient would like to do outpatient. VOLUNTARY ADMIT to inpatient psychiatry [facility] protocol CONTINUE home medication Discussed need for abstaining from the use of alcohol and substances as well as the need for post discharge substance counseling/treatment Coordinate with case management social worker for post discharge substance counseling/treatment Encourage patient to participate in unit activities to include group sessions, unit milieu Involuntary Hold Information 96 Hour Hold: 96 Hour Involuntary Admission: No Attestations NPU Medical Necessity Statement*: Require psychiatric hospitalization for medical management of withdrawal symptoms, observation for return of any suicidal ideation or behaviors, medication stabilization and coordination for safe discharge. Anticipate hospital stay to exceed 2 midnights. Time Spent in Patient Care: Greater than 35 minutes (>than 50% of time spent in counselling and/or direct pt care on unit). Coding Level of Care Code Acute Hydrometer Calibrator for Hannah Fulton Diagnoses Alcohol use disorder, severe, dependence F10.20 Suicidal ideation R45.851 Chronic post-traumatic stress disorder (PTSD) F43.12
[2021-01-11] MEDS: LORazepam 2 mg Tablet PO (13:47)
--- NOTE | 2021-01-11 13:48 | PC.NURSE ---
Addendum entered by Alicja Arzola LPN 01/11/21 14:46: CIWA SCORE NOW 0--PT WATCHING TV IN THE DAY ROOM, MOOD IS CALM Original Note: CIWA SCORE 11--ATIVAN 2 MG GIVEN PO PER PROTOCOL & PER PHYSICIAN REQUEST
[2021-01-11] MEDS: ibuprofen 200 mg Tablet 400 MG PO (20:15)
[2021-01-11] MEDS: meloxicam 7.5 mg tablet 15 MG PO (20:16)
[2021-01-11] MEDS: ziprasidone hcl 40 mg Capsule 80 MG PO (20:17)
--- NOTE | 2021-01-11 20:53 | PC.NURSE ---
CIWA 4/AH Pt reports intermittent AH- states she hears people walking in her room. No tremor felt, mildly diaphoretic, reports increased anxiety, and requesting Ativan, med Nurse notified of CIWA score, HR 106, BP is elevated 150/106. will continue to observe patient
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
--- NOTE | 2021-01-11 20:58 | PC.NURSE ---
At 20:15 Gave Patient 400mg Ibuprofen PO for C/O back pain. Pt. rated pain 7 on 1-10 pain scale. At 20:45 reassessed her pain level. Pt. rates pain at 2 on a 1-10 pain scale.
--- NOTE | 2021-01-12 00:10 | PC.NURSE ---
CIWA 10 PT IS MILDLY ANXIOUS, MILDLY DIAPHORETIC, RESTLESS, BUT REMAINS ASLEEP AT THIS TIME, PT IS DISTURBED BY THE SMALLEST SOUND OR PRESENCE OF LIGHT, WILL CONTINUE TO OBSERVE PATIENT CONDITION, MED NURSE NOTIFIED, WE WILL HOLD PRN ATIVAN UNTIL PATIENT IS AWAKE AND CIWA IS RESCORED.
[2021-01-12 06:00] VITALS: BP 104/70; PULSE 88; RESP 17; TEMP 36.6; O2SAT 96
[2021-01-12] MEDS: thiamine 100 mg Tablet PO (08:15)
[2021-01-12] MEDS: ferrous sulfate EC 325 mg Tablet PO ×2 (08:15→20:16)
[2021-01-12] MEDS: fluoxetine 20 mg Capsule PO (08:16)
[2021-01-12] MEDS: multivitamin therapeutic Tablet 1 TAB PO (08:16)
[2021-01-12] MEDS: folic acid 1 mg Tablet PO (08:16)
[2021-01-12] MEDS: LORazepam 2 mg Tablet PO ×2 (08:16→20:17)
--- NOTE | 2021-01-12 08:17 | PC.NURSE ---
CIWA SCORE 11--ATIVAN 2 MG GIVEN PO PER PROTOCOL. PT SPECIFICALLY REQUESTING ATIVAN FROM NURSING STAFF. HAD TO BE WOKEN UP TO TAKE PRN ATIVAN AND OTHER SCHEDULED MEDICATIONS.
[2021-01-12 14:00] VITALS: BP 135/100; PULSE 89; RESP 18; TEMP 36.9; O2SAT 95
--- NOTE | 2021-01-12 15:21 | PM.NPN ---
Subjective NPU Subjective: Interval history: Patient reports some improvement in her mood, continues to have intermittent depressive symptoms. Reports significant improvement in her alcohol withdrawal symptoms. Denies any interval psychotic symptoms, denies any auditory or visual destinations. Denies any suicidal ideation Reports some improvement in appetite and sleep She states that she has been compliant with her medication and denies any medication side effects Mental Status Exam MSE Comments: Lying in her bed, calm, cooperative, interactive, appropriately groomed and dressed Psychomotor activity is neither increased nor decreased, no agitation Speech is normal rate and volume, spontaneous, clear articulation, not pressured I feel little better, full range, not labile Alert and oriented to person, place, time, situation Memory and concentration appear to be intact per interview Thought process, linear Thought content, no delusions, no hallucinations, no suicidal homicidal ideation Insight and judgment appear to be fair Vitals/I&O/Wt Last Vital Signs Temp 98.4 F 01/12/21 14:00 Pulse 89 01/12/21 14:00 Resp 18 01/12/21 14:00 BP 135/100 01/12/21 14:00 Pulse Ox 95 01/12/21 14:00 Weight last 48 hrs Weight 113.398 kg Data NPU : 01/11/21 03:20 01/11/21 03:20 A&P Assessment and plan (1) Suicidal ideation: Status: Acute (2) Chronic post-traumatic stress disorder (PTSD): Status: Chronic (3) Alcohol use disorder, severe, dependence: Status: Chronic Additional A&P Information Reports some improvement, continues to have some mood symptoms, denies any interval psychotic symptoms, denies any suicidal ideation, continues to report some withdrawal symptoms CONTINUE current medication, continue to monitor Involuntary Hold Information 96 Hour Hold: 96 Hour Involuntary Admission: No Attestations NPU Medical Necessity Statement*: Continues to require psychiatric hospitalization for medically managed withdrawal symptoms, medication stabilization, coordination for safe discharge Coding Level of Care Code Acute Site Technician for Hannah Fulton Diagnoses Suicidal ideation R45.851 Chronic post-traumatic stress disorder (PTSD) F43.12 Alcohol use disorder, severe, dependence F10.20
[2021-01-12 19:26] VITALS: BP 137/86; PULSE 100; RESP 16; TEMP 37.3; O2SAT 96
--- NOTE | 2021-01-12 20:00 | PC.NURSE ---
CIWA 13 Pt reports AH- in dayroom she says she is hearing an increasing hissing noise, it frightened her. She is experiencing moderate visible tremors, reports pain in her back as constant 7 and headache rate 4 both on 1-10 pain scales. Pt is mildly diaphoretic, alert and oriented. Pt reports feeling an increase in paranoid feelings and anxiety that is increasing.Med nurse notified. Ciwa score is 13.
[2021-01-12] MEDS: ziprasidone hcl 40 mg Capsule 80 MG PO (20:16)
[2021-01-12] MEDS: meloxicam 7.5 mg tablet 15 MG PO (20:17)
--- NOTE | 2021-01-12 21:20 | PC.NURSE ---
PM Assessment CIWA 13, Pt states, I am hearing people walking in my room, but no one is there. Hearing hissing in the dayroom, freaked me out. Pt denies VH, Denies SI/HI, reports chronic back pain rated 7 on 1-10 pain scale, reports headache, somewhat paranoid at this time. med nurse notified. Pt is currently in her room resting. Will continue to observe patient for any change in her behavior/condition.
--- NOTE | 2021-01-12 22:03 | PC.NURSE ---
PRN ATIVAN 2MG PO/CIWA 13 @2017-MED NURSE NOTIFIED OF CIWA SCORE OF 13. MED NURSE ADMINISTERED A DOSE OF ATIVAN 2MG PO @2017 THIS EVENING. @2205-CURRENTLY, PATIENT IS RESTING IN HER ROOM, NO APPARENT S/S OF DISTRESS NOTED AT THIS TIME. MEDICATION EFFECTIVE AT THIS TIME. WILL CONTINUE TO OBSERVE PATIENT
--- NOTE | 2021-01-12 22:08 | PC.NURSE ---
FOLLOW UP CIWA 3 PT IS MUCH IMPROVED FROM EARLIER CIWA OF 13. SHE IS NOW AT A 3. SHE IS RESTING AND CALM.
[2021-01-13 06:00] VITALS: BP 95/65; PULSE 75; RESP 16; TEMP 36.6; O2SAT 96
[2021-01-13] MEDS: thiamine 100 mg Tablet PO (07:43)
[2021-01-13] MEDS: ferrous sulfate EC 325 mg Tablet PO ×2 (07:43→20:02)
[2021-01-13] MEDS: fluoxetine 20 mg Capsule PO (07:43)
[2021-01-13] MEDS: folic acid 1 mg Tablet PO (07:44)
[2021-01-13] MEDS: multivitamin therapeutic Tablet 1 TAB PO (07:44)
[2021-01-13 14:00] VITALS: BP 123/95; PULSE 85; RESP 17; TEMP 36.7; O2SAT 95
--- NOTE | 2021-01-13 16:32 | P.PN_ITS ---
Subjective NPU Subjective: Interval history: Yeimy presents today reporting that she is going to start work on Sunday at [employer]. We had a long discussion about her alcohol addiction and her plan to start at [facility]. We once again discussed risk of Warnicke's encephalopathy given her history recently. We discussed the risk benefits and alternatives of the discharge tomorrow and she understood and agreed to proceed as documented in this note. Mental Status Exam MSE Comments: This is an obese white female with adequate dress, grooming and eye contact. She is in hospital scrubs with no abnormal movements except for resolving psychomotor retardation. Cooperative with exam and in no acute distress. Speech was more normal rate and volume. Mood described as fine, affect is congruent. Thought process organized. Patient denied suicidal or homicidal ideation , there were no delusions reported or noted, she denied auditory or visual hallucinations. Attention and concentration were intact and memory appeared reliable but none were formally tested. She is alert and or iented x 3. Insight and judgment are fair and improving. Vitals/I&O/Wt Last Vital Signs Temp 98.0 F 01/13/21 14:00 Pulse 85 01/13/21 14:00 Resp 17 01/13/21 14:00 BP 123/95 01/13/21 14:00 Pulse Ox 95 01/13/21 14:00 Data NPU : 01/11/21 03:20 01/11/21 03:20 A&P Assessment and plan (1) Suicidal ideation: Status: Acute (2) Chronic post-traumatic stress disorder (PTSD): Status: Chronic (3) Alcohol use disorder, severe, dependence: Status: Chronic (4) Bipolar disorder: Status: Chronic (5) History of Wernicke's encephalopathy: Status: Acute Additional A&P Information This is a 50-year-old white female with a long history of PTSD, depression and addiction specifically alcohol use with recent difficulties with sobriety reporting openness to start outpatient rehab. 1. Continue current medication. 2. Continue every 15 minute checks for safety. 3. Encourage individual, group and milieu therapies. 4. Encourage sober living treatment after discharge at the highest level of care to which he is willing to commit. Involuntary Hold Information 96 Hour Hold: 96 Hour Involuntary Admission: No Attestations NPU Medical Necessity Statement*: Inpatient hospitalization is medically necessary and the clinically appropriate event at this time. We will monitor medications and make changes as indicated. Likely discharge tomorrow. Coding Level of Care Code Acute Human Capital Analyst for Chg Fwd Diagnoses Suicidal ideation R45.851 Chronic post-traumatic stress disorder (PTSD) F43.12 Alcohol use disorder, severe, dependence F10.20 Bipolar disorder F31.9 History of Wernicke's encephalopathy Z86.69
--- NOTE | 2021-01-13 20:00 | PC.NURSE ---
CIWA 15 Pt is agitated, experiencing intermittent waves of nausea, with eyes closed arms extended pt is visibly trembling, reports feeling skin crawling, moderately sensitive to both light and sound, and mildly paranoid, skin is moist with sweat. Pt states, no one would help me today, said I didn't need anything, they just don't understand. score CIWA 15, Pt reports feeling tired, fidgety, restless, but like she has little energy. Med nurse notified will continue to observe pt behavior
[2021-01-13] MEDS: LORazepam 2 mg Tablet PO (20:01)
[2021-01-13] MEDS: meloxicam 7.5 mg tablet 15 MG PO (20:01)
[2021-01-13] MEDS: ziprasidone hcl 40 mg Capsule 80 MG PO (20:01)
--- NOTE | 2021-01-13 20:25 | PC.NURSE ---
PRN MED PT GIVEN 2MG ATIVAN FOR S/S OF ANXIETY, NAUSEA, SWEATS, AND A SCORE OF 15 ON CIWA WILL CONTINUE TO MONITOR.
--- NOTE | 2021-01-13 20:27 | PC.NURSE ---
PM Assessment CIWA 15, Pt states, I am feeling paranoid, I think people are watching me Pt denies VH, Denies SI/HI, reports chronic back pain rated 5 on 1-10 pain scale, reports headache with light/sound sensitvity, reports nausea that is intermittent, body aches, on assessment eyes closed palms facing upward, there are visible moderate tremors, eyes closed test to touch nose- pt misses and touches cheek, standing- eyes closed, tilts head back-pt loses balance, she somewhat paranoid at this time. med nurse notified of CIWA score and nursing assessment observations. Pt is currently in dayroom. Will continue to observe patient for any change in her behavior/condition.
--- NOTE | 2021-01-13 21:29 | PC.NURSE ---
POSS NEW UTI PT REPORTS URGENCY, NEW ONSET OF BURNING SENSATION WHILE URINATING, STATES i HAD A RECENT UTI, GOT DRUNK, AND NEVER FINISHED BY ANTIBIOTICS. PHYSICAN NOTIFIED, UA W/MICROSCOPIC ORDERED.
[2021-01-13 21:59] VITALS: BP 123/89; PULSE 78; RESP 17; TEMP 37.1; O2SAT 95
[2021-01-13 22:36] LABS: Urine Appearance Clear (CLEAR); Urine Color Yellow (Yellow)
[2021-01-13 22:37] LABS: Bacteria Urine TRACE /hpf; Bilirubin Urine Neg (Negative); Blood Urine Trace (Negative); Glucose Urine UA Norm (Normal); Ketones Urine Negative (Negative); Leukocyte Esterase Urine Negative (Negative); Nitrate Urine Negative (Negative); Protein Urine Neg (Negative); RBC Urine 0-4 /hpf (0-2); Specific Gravity, Urine 1.005 (1.005-1.030); Squamous Epithelial Cell Urine 0-4 /hpf (0-5); Urobilinogen Urine Norm (Negative); WBC Urine 0-4 /hpf (0-5); pH Urine 7 (5-7)
--- NOTE | 2021-01-13 23:41 | PC.NURSE ---
ADDENDOME PT IN BED RESTING O S/S OF DISTRESS, WILL CONTINUE TO MONITOR
[2021-01-14 05:30] VITALS: RESP 17
[2021-01-14] MEDS: multivitamin therapeutic Tablet 1 TAB PO (07:45)
[2021-01-14] MEDS: folic acid 1 mg Tablet PO (07:46)
[2021-01-14] MEDS: thiamine 100 mg Tablet PO (07:46)
[2021-01-14] MEDS: ferrous sulfate EC 325 mg Tablet PO (07:46)
[2021-01-14] MEDS: fluoxetine 20 mg Capsule PO (07:46)
--- NOTE | 2021-01-14 14:17 | P.DS_ITS ---
Diagnoses at Discharge Discharge Diagnosis (1) Suicidal ideation: Status: Resolved (2) Chronic post-traumatic stress disorder (PTSD): Status: Chronic (3) Alcohol use disorder, severe, dependence: Status: Chronic (4) Bipolar disorder: Status: Chronic (5) History of Wernicke's encephalopathy: Status: Acute Reason for Visit Reason for Visit: ETOH Brief History: History of Present Illness Yeimy Perry is a 50 year old female well known to the unit with longstanding history of alcohol dependence as well as multiple chronic medical issues some related to her ongoing alcohol use such as pancreatitis presenting to the emergency department and withdrawal requesting hospitalization and also endorsing suicidal ideation. Patient continues to report passive suicidal thoughts which she states is intermittent and reports that alcohol use seems to exacerbate this although patient states that she has had difficulty stopping her alcohol use and currently states that she has no desire to attend residential substance treatment although she will attend outpatient treatment. Patient states that she has been drinking around 2 pints a day. Continues to report feeling tremulous with shakes, stomach cramping, some difficulty sleeping. Patient is vague with regards to depressive symptoms but does report feeling down and low, decreased motivation. Reports that she has been experiencing some auditory hallucinations over the past 24 to 48 hours, denies any delusions. Patient states that she has not been compliant with any follow-up post discharge from this unit 12 days ago. Hospital Course Hospital Course She presented to the emergency department endorsing suicidality, recent relapse as well as depression. She was mated to the neuropsychiatric unit for definitive treatment of those issues. On the unit she slowly acclimated to the individual, group milieu therapies provided. Her medications were continued and she was connected with outpatient rehab as she was unwilling to do inpatient rehab reportedly because of finally getting a job which is starting on Sunday. She was able to contract for safety outside the hospital before discharge. During the hospitalization, patient had routine laboratory studies which were within normal limits except for few outliers. Additionally there was a general medical evaluation which was also within normal limits and revealed no new acute processes. Discharge Summary: At the time of discharge, she denied psychosis or lethality. Mood and anxiety were well managed. Patient endorsed a plan to avoid all drugs of abuse and follow-up with the aftercare recommendations of the treatment team. Patient was evaluated and deemed to be absent credible lethality, and had achieved the maxi mum benefit from an inpatient hospitalization, so was discharged. Involuntary Hold Information 96 Hour Hold: 96 Hour Involuntary Admission: No Mental Status Exam MSE Comments: This is an obese white female with adequate dress, grooming and eye contact. She is in hospital scrubs with no abnormal movements except for resolving psychomotor retardation. Cooperative with exam and in no acute distress. Speech was more normal rate and volume. Mood described as better, affect is congruent. Thought process organized. Patient denied suicidal or homicidal ideation , there were no delusions reported or noted, she denied auditory or visual hallucinations. Attention and concentration were intact and memory appeared reliable but none were formally tested. She is alert and oriented x 3. Insight and judgment are fair and improving. Discharge Data Data Completed and Pending: Labs from last 24 hours 01/13/21 22:15 Urine Color Yellow Urine Appearance Clear Urine pH 7 Ur Specific Gravit y 1.005 Urine Protein Neg Urine Glucose (UA) Norm Urine Ketones Negative Urine Blood Trace H Urine Nitrate Negative Urine Bilirubin Neg Urine Urobilinogen Norm Ur Leukocyte Marlys ase Negative Urine RBC 0-4 H Urine WBC 0-4 H Ur Squamous Epith Cells 0-4 H Amorphous Sediment Not Reportable Urine Bacteria Trace Vitals: Last Vital Signs Temp 98.7 F 01/13/21 21:59 Pulse 78 01/13/21 21:59 Resp 17 01/14/21 05:30 BP 123/89 01/13/21 21:59 Pulse Ox 95 01/13/21 21:59 Discharge Plan Discharge Patient Disposition: Home Condition: Stable Prescriptions: New Vitamin B-1 (mononitrate) 100 mg Tablet 100 mg PO DAILY 30 Days Qty: 30 RF: 1 Continued Thera 400 mcg tablet 1 tab PO DAILY 30 Days Qty: 30 RF: 12 ferrous sulfate 325 mg (65 mg iron) tablet 325 mg PO BID Qty: 60 RF: 12 dicyclomine 20 mg Tablet 20 mg PO QID PRN (Reason: bowel irritability) RF: 0 meloxicam 15 mg tablet 15 mg PO BEDTIME 30 Days Qty: 30 RF: 0 hydroxyzine pamoate 50 mg capsule 50 mg PO QPM PRN (Reason: anxiety/insomnia) 30 Days Qty: 30 RF: 1 ziprasidone HCl 40 mg Capsule 80 mg PO BEDTIME 30 Days Qty: 60 RF: 1 fluoxetine 20 mg Capsule 20 mg PO DAILY 30 Days Qty: 30 RF: 1 ondansetron HCl [Zofran] 4 mg tablet 4 mg PO Q6H PRN (Reason: nausea and vomiting) Qty: 7 RF: 0 Discharge Orders: Discharge Order (Routine); Ordered 01/14/21 Ordered By: Antonio Kwong Referrals: [facility] Meetings [Other] (Meetings held Mondays and Wednesdays at 7 PM. Noon on Sundays. ) [facility] [Outside] - 01/25/21 8:00 am (Intake assessment has been scheduled. If this time does not work with your work schedule please call them to reschedule.) Eric Hartman LCSW [Referring] - 02/01/21 12:00 pm Rosa Win APRN [Nurse Practitioner] - 01/24/21 10:00 am (NPU follow up) Da Myles MD [Physician] - 01/31/21 8:00 am Discharge Diet: Regular Discharge Activity: Resume usual activity Patient Instructions: Abuse of Alcohol (DC) Discharge Attestations NPU Time Spent in Discharge Care*: less than 30 min Specific Discharge Activities: Specific discharge activities: educating patient, discussing with case resolution specialist/social workers/dc planners, documenting/other paperwork and evaluating patient/reviewing data Status at Discharge: Cognitive status at discharge: cognitively intact , Behavioral status at discharge: cooperative , Coding Level of Care Code Acute Employee Operations Examiner for Chg Fwd Diagnoses Suicidal ideation R45.851 Chronic post-traumatic stress disorder (PTSD) F43.12 Alcohol use disorder, severe, dependence F10.20 Bipolar disorder F31.9 History of Wernicke's encephalopathy Z86.69
[2021-01-14 15:55] VITALS: BP 123/89; PULSE 78; RESP 17; TEMP 37.1; O2SAT 95
[2021-01-14 16:00] VITALS: BP 123/89; PULSE 78; RESP 17; TEMP 37.1; O2SAT 95
== END 2021-01-14 19:16 | disposition home or self-care (01) | DRG 897 ==
LOC: ER 04:28 → NP 05:05
PROVIDERS: Admitting Provider Psychiatry & Neurology Psychiatry; Emergency Provider Emergency Medicine; Visit Provider Psychiatry & Neurology Psychiatry
DX: F10.239 Alcohol dependence with withdrawal, unspecified (principal); R45.851 Suicidal ideations; F10.229 Alcohol dependence with intoxication, unspecified; Y90.6 Blood alcohol level of 120-199 mg/100 ml; F31.9 Bipolar disorder, unspecified; F43.12 Post-traumatic stress disorder, chronic; E66.9 Obesity, unspecified; D50.9 Iron deficiency anemia, unspecified; Z68.38 Body mass index [BMI] 38.0-38.9, adult
CPT/HCPCS: 36416; 80053; 80306; 80307; 81001; 82962; 85025; 96372; 99283; G0378; J2060; J3411

== ENCOUNTER 2021-01-31 20:35 | Inpatient (IN) | payer MEDICAID, SELFPAY ==
[2021-01-31 20:53] VITALS: BP 133/88; PULSE 109; RESP 16; TEMP 36.9; O2SAT 97; BMI 39.5
--- NOTE | 2021-01-31 21:17 | CTR_ITS ---
PROCEDURE INFORMATION: Exam: CT Head Without Contrast Exam date and time: 01/31/2021 9:22 PM Age: 50 years old Clinical indication: Injury or trauma; Fall; Blunt trauma (contusions or hematomas); Additional info: Fall, ETOH TECHNIQUE: Imaging protocol: Computed tomography of the head without contrast. Axial, coronal and sagittal reformatted images were created and reviewed. Radiation optimization: All CT scans at this facility use at least one of these dose optimization techniques: automated exposure control; mA and/or kV adjustment per patient size (includes targeted exams where dose is matched to clinical indication); or iterative reconstruction. COMPARISON: CT orbit BI wo con* [id number] 12/26/2020 2:32 PM RADIATION DOSE METRICS: Total DLP (mGy-cm): 833.44 FINDINGS: Brain: Subtle, patchy areas of hypoattenuation in the periventricular and subcortical white matter, nonspecific but suggestive of mild chronic small vessel ischemic disease. No CT evidence of acute intracranial hemorrhage or acute territorial infarction. No significant mass effect or midline shift. Basal cisterns patent. Cerebral ventricles: Prominence of the cortical sulci, cisterns and ventricular system, consistent with cerebral and cerebellar volume loss. Bones/joints: No acute osseous abnormality. Paranasal sinuses: Unremarkable. No fluid levels. Mastoid air cells: Grossly unremarkable. Soft tissues: Grossly unremarkable. CT/CT head wo con* [id number]: 1. No CT evidence of acute intracranial pathology. 2. Additional findings, as above. Radiation Dose CTDIVOL = (mGy): DLP = 833.44 (mGy-cm)
--- NOTE | 2021-01-31 21:17 | CTR_ITS ---
PROCEDURE INFORMATION: Exam: CT Maxillofacial Without Contrast Exam date and time: 01/31/2021 9:22 PM Age: 50 years old Clinical indication: Injury or trauma; Blunt trauma (contusions or hematomas); Orbit/periorbital and jaw; Right; Patient HX: Fall, no loc. RT sided face abrasions. ; Additional info: Fall, facial injury TECHNIQUE: Imaging protocol: Computed tomography images of the face without contrast. Axial, coronal and sagittal reformatted images were created and reviewed. Radiation optimization: All CT scans at this facility use at least one of these dose optimization techniques: automated exposure control; mA and/or kV adjustment per patient size (includes targeted exams where dose is matched to clinical indication); or iterative reconstruction. COMPARISON: CT orbit BI wo con* [id number] 12/26/2020 2:32:44 PM RADIATION DOSE METRICS: Total DLP (mGy-cm): 794.89 FINDINGS: Orbital cavity: Orbits are normal. Globes are unremarkable. Bones/joints: Comminuted, minimally displaced fractures of the nasal bones, similar to prior. Paranasal sinuses: Mild ethmoid, maxillary and sphenoid sinus mucosal thickening. Soft tissues: Right periorbital soft tissue swelling. Other findings: Poor dentition. CT/CT facial bones wo con* [id number] IMPRESSION: 1. Comminuted, minimally displaced fractures of the nasal bones, similar to prior. 2. Additional findings, as above. Radiation Dose CTDIVOL = (mGy): DLP = 794.89 (mGy-cm)
--- NOTE | 2021-01-31 21:29 | ED_ITS ---
HPI - Psych General: Chief Complaint: Psychiatric Symptoms Stated Complaint: si/alcohol detox Time Seen by Provider: 01/31/21 21:05 History of Present Illness: Associated symptoms: Reports depression and suicidal ideation (she states she wants to slice her throat) Review of Systems General: Reports: 10 or more systems reviewed and unremarkable except in HPI and below Narrative: 50 yo female comes in saying she wants to slice her throat. She states she had been drinking vodka daily until yesterday at noon. She states shehas a hixtory of anxiety, depression, PTSD and bipolar. She states she was last in a psTRA facilility 2 weeks ago here. She also states she feel yesterday about 3 pm and hit her face on the concrete. She debies LOC but states she had been drinking prior to that. Const: Denies: fever(s), chills, body aches, change in appetite, change in weight, fatigue, malaise, night sweats, diaphoresis, change in sleep pattern, daytime sleepiness, snoring or other Eyes: Denies: change in vision, blurry vision, photophobia, eye discharge or eye redness ENMT: Reports: sinus pain (secondary to fall.); Denies: throat pain, odynophagia, ear or mastoid pain, nasal discharge or nasal congestion Card: Denies: chest pain, palpitations or dyspnea on exertion Resp: Denies: dyspnea, productive cough, non-productive cough, wheezing or pain on inspiration GI: Reports: abdominal pain (patient states she has been having belly pain, points to mid abdomen), nausea, vomiting (x 3 today), diarrhea ( 2 loose stools today) and other (history of pancreatitis); Denies: hematemesis, coffee ground emesis, dysphagia, heartburn or constipation : Denies: flank pain, difficulty voiding or dysuria Musc: Denies: neck pain, back pain or extremity pain Skin/Breast: Denies: rash Neuro: Denies: headache(s), numbness in extremities, weakness in extremities, sensory changes, lack of coordination, difficulty walking, frequent falls, dizziness, vertigo, confusion, behavioral changes, Slurred speech present or difficulty communicating thoughts Psych: Reports: anxiety, depression and suicidal ideation (she states she wants to slice her throat) Endo: Denies: polyuria, polydipsia or tired all the time Marlon/Lymph: Denies: easy bleeding All/Imm: Denies: throat swelling PFSH ED PFSH: Medical History Alcohol dependence Has been prescribed antabuse Arthritis of right knee Bipolar disorder Chronic post-traumatic stress disorder (PTSD) Depressive disorder Hx of cholecystitis Iron deficiency anemia Obesity (BMI 35.0-39.9 without comorbidity) Recurrent pancreatitis Right elbow tendinitis Suicidal thoughts in the past Surgical History History of Hx of gastric bypass Hx of hernia repair Hx of tubal ligation Hx of unilateral salpingectomy Right Family History Other Diabetes Heart disease Social History Smoking and tobacco status: never smoked Alcohol intake: current History of recent travel: No Current gender identity: Female Female Reproductive History: Date of last menstrual period: 04/09/20 Physical Exam Const: COMMON NORMALS: no acute distress, patient oriented x3, no limitations, healthy appearing, alert and well nourished GENERAL APPEARANCE: cooperative, comfortable and disheveled; not well kempt NUTRITIONAL APPEARANCE: obese ORIENTATION/CONSCIOUSNESS: Yes awake, Yes oriented to person, Yes oriented to place and Yes oriented to t sabino HENMT: COMMON NORMALS: normocephalic, atraumatic, hearing grossly normal bilaterally, Normal external nose present, Normal nasal mucous membranes and turbinates present and moist oral mucous membranes HEAD & SCALP: normal to inspection, normocephalic and atraumatic FACE & SINUS: sinuses nontender FACE & SINUS IMAGES: 1. facial abrasion 2. facial abrasion NOSE: Normal external nose present and Normal nasal mucous membranes and tur binates present MOUTH: Normal oral and palatal mucosa present and tongue normal Eye: COMMON NORMALS: Equal, round and reactive pupils present, EOMs intact bilaterally, conjunctivae normal and no scleral icterus GENERAL EYE: appearance normal, both eyes and all related structures and normal light reflex EYELID: eyelids normal CONJUNCTIVA: Yes conjunctivae normal SCLERA: sclerae normal PUPIL: Yes Equal, round and reactive pupils present DIRECT OPHTHALMOSCOPY: Yes normal light reflex and No photophobia Neck/C-Spine: COMMON NORMALS: full ROM, no lymphadenopathy, supple, no meningeal signs, no JVD, Thyroid normal and No carotid bruits GENERAL: Yes normal visual inspection, Yes trachea midline, No anterior neck swelling, No lymphadenopathy and No tender THYROID: Thyroid normal CERVICAL SPINE: Yes cervical ROM normal, Yes normal cervical lordosis, Yes cervical ROM abnormal and No pain with cervical ROM Lymph: LYMPHATIC: no lymphadenopathy noted Chest: COMMONS NORMALS: normal inspection of the chest and normal palpation of entire chest wall CHEST: No abnormal inspection of the chest, Yes Symmetrical chest wall rise and No localized rib tenderness with anteroposterior compression Breast/axilla inspection: Yes no chest deformity, asymmetry, normal contours, no nodules, masses, tenderness Resp: COMMON NORMALS: normal respiratory effort, No retractions, No use of accessory muscles and clear to auscultation bilaterally EFFORT & INSPECTION: Yes able to speak in complete sentences, Yes symmetric chest movement and No respiratory distress AUSCULTATION: clear to auscultation bilaterally, no crackles, no rales, no rhonchi and no wheezes Cardio: COMMON NORMALS: no JVD, regular rate, regular rhythm and No murmurs present (Cardio) RATE: regular rate RHYTHM: regular rhythm HEART SOUNDS: no murmurs GI: COMMON NORMALS: Soft to palpation PALPATION: Yes Soft to palpation, No Firmness to palpation present (GI), Yes Tenderness to palpation present (GI), No Guarding due to palpation present (GI) and No Rigid due to palpation GI image (female): 1. reproducible tenderness : COMMON NORMALS: Yes no CVA tenderness BLADDER/KIDNEY EXAM: Yes no CVA tenderness Back/Pelvis: COMMON NORMALS: no CVA tenderness and no thoracic nor lumbar tenderness Extremity: COMMON NORMALS: normal to inspection, full ROM and no calf tenderness Neuro: COMMON NORMALS: patient oriented x3, CN's II-XII intact bilaterally, moves all extremities, no focal motor deficits and gait normal SENSORIUM/ORIENTATION: Yes alert, Yes oriented to person, Yes oriented to place and Yes oriented to time MENINGEAL SIGNS: Yes no meningeal signs SPEECH: speech normal Psych: COMMON NORMALS: mental status grossly normal, cooperative, speech normal and denies hallucinations; negative for denies suicidal ideation APPEARANCE: No well kempt ATTITUDE: Yes calm ACTIVITY/MOTOR BEHAVIOR: Yes appropriate eye contact SPEECH: Yes normal speech THOUGHT CONTENT: Yes Suicidality present (states she will slice her throat) Skin: NARRATIVE SKIN EXAM: facial abrasions noted MDM - Psych Lab Data: Labs: Lab Results 01/31/21 01/31/21 01/31/21 Range/Units 21:24 21:24 22:08 WBC 7.0 (4.0-10.0) 10^3/ uL RBC 4.43 (4.1-5.3) 10^6/u L Hgb 13.7 (11.5-15.3) g/dL Hct 41.0 (37.0-47.0) % MCV 92.6 (81-99) fL MCH 30.9 (28.0-34.0) pg MCHC 33.4 (30.0-36.0) g/dL RDW 14.5 (12.1-15.1) % Plt Count 137 (130-400) 10^3/c mm MPV 9.1 (7.4-10.4) fL Neut % (Auto) 71.7 % Lymph % (Auto) 20.9 % [place] % (Auto) 6.3 % Eos % (Auto) 0.3 % Baso % (Auto) 0.7 % Neut # (Auto) 5.04 (1.8-7.7) 10^3/u L Lymph # (Auto) 1.5 (0.8-4.8) 10^3/u L [place] # (Auto) 0.4 (0.2-0.9) 10^3/u L Eos # (Auto) 0.0 (0.0-0.8) 10^3/u L Baso # (Auto) 0.1 (0.0-0.1) 10^3/u L Nucleated RBC % (a uto) 0 % Nucleated RBCs # 0.0 /100WBC Sodium (136-145) mmol/L Potassium (3.5-5.1) mmol/L Chloride (98-107) mmol/L Carbon Dioxide (22-29) mmol/L Anion Gap (5-19) BUN (6-20) mg/dL Creatinine (0.5-0.9) mg/dL GFR Calculation (90-130) mL/min Glucose (65-115) mg/dL Calculated Osmolal ity (285-295) mOsm/k g Calcium (8.5-10.5) mg/dL Total Bilirubin (0.15-1.2) mg/dL AST (0-32) U/L ALT (0-33) U/L Alkaline Phosphata se (35-105) IU/L Total Protein (6.6-8.7) g/dL Albumin (3.5-5.2) g/dL Globulin (1.3-4.6) g/dL Lipase (13-60) U/L TSH (0.27-4.20) uIU/ mL Urine Color Yellow (Yellow) Urine Appearance Clear (CLEAR) Urine pH 5 (5-7) Ur Specific Gravit y 1.010 (1.005-1.030) Urine Protein Neg (Negative) Urine Glucose (UA) Norm (Normal) Urine Ketones Negative (Negative) Urine Blood 3+ H (Negative) Urine Nitrate Negative (Negative) Urine Bilirubin Neg (Negative) Urine Urobilinogen 1 H (Negative) mg/dL Ur Leukocyte Marlys ase Negative (Negative) Urine RBC 25-40 H (0-2) /hpf Urine WBC 0-4 H (0-5) /hpf Ur Squamous Epith Cells 10-15 H (0-5) /hpf Amorphous Sediment Not Reportable Urine Bacteria 1+ H (NONE) /hpf Hyaline Casts 0-4 H /lpf Urine Mucus Trace /hpf Salicylates (3-10) mg/dL Urine Opiates Scre en Negative (Negative) ng/mL Acetaminophen (10-30) ug/mL Ur Barbiturates Sc reen Negative (Negative) ng/mL Ur Phencyclidine S crn Negative (Negative) ng/mL Ur Amphetamines Sc reen Negative (Negative) ng/mL U Benzodiazepines Scrn Negative (Negative) ng/mL Urine Cocaine Scre en Negative (Negative) ng/mL U Marijuana (THC) Screen Negative (Negative) ng/mL Ethyl Alcohol (0-10) mg/dL 01/31/21 02/01/21 Range/Units 22:08 00:24 WBC (4.0-10.0) 10^3/ uL RBC (4.1-5.3) 10^6/u L Hgb (11.5-15.3) g/dL Hct (37.0-47.0) % MCV (81-99) fL MCH (28.0-34.0) pg MCHC (30.0-36.0) g/dL RDW (12.1-15.1) % Plt Count (130-400) 10^3/c mm MPV (7.4-10.4) fL Neut % (Auto) % Lymph % (Auto) % [place] % (Auto) % Eos % (Auto) % Baso % (Auto) % Neut # (Auto) (1.8-7.7) 10^3/u L Lymph # (Auto) (0.8-4.8) 10^3/u L [place] # (Auto) (0.2-0.9) 10^3/u L Eos # (Auto) (0.0-0.8) 10^3/u L Baso # (Auto) (0.0-0.1) 10^3/u L Nucleated RBC % (a uto) % Nucleated RBCs # /100WBC Sodium 141 (136-145) mmol/L Potassium 3.8 (3.5-5.1) mmol/L Chloride 99 (98-107) mmol/L Carbon Dioxide 21 L (22-29) mmol/L Anion Gap 24.8 H (5-19) BUN 10 (6-20) mg/dL Creatinine 0.5 (0.5-0.9) mg/dL GFR Calculation 131.7 H (90-130) mL/min Glucose 103 (65-115) mg/dL Calculated Osmolal ity 291 (285-295) mOsm/k g Calcium 7.6 L (8.5-10.5) mg/dL Total Bilirubin 0.7 (0.15-1.2) mg/dL AST 24 (0-32) U/L ALT 16 (0-33) U/L Alkaline Phosphata se 102 (35-105) IU/L Total Protein 6.2 L (6.6-8.7) g/dL Albumin 3.7 (3.5-5.2) g/dL Globulin 2.5 (1.3-4.6) g/dL Lipase 13 (13-60) U/L TSH 2.47 (0.27-4.20) uIU/ mL Urine Color (Yellow) Urine Appearance (CLEAR) Urine pH (5-7) Ur Specific Gravit y (1.005-1.030) Urine Protein (Negative) Urine Glucose (UA) (Normal) Urine Ketones (Negative) Urine Blood (Negative) Urine Nitrate (Negative) Urine Bilirubin (Negative) Urine Urobilinogen (Negative) mg/dL Ur Leukocyte Marlys ase (Negative) Urine RBC (0-2) /hpf Urine WBC (0-5) /hpf Ur Squamous Epith Cells (0-5) /hpf Amorphous Sediment Urine Bacteria (NONE) /hpf Hyaline Casts /lpf Urine Mucus /hpf Salicylates < 0.3 L (3-10) mg/dL Urine Opiates Scre en (Negative) ng/mL Acetaminophen < 5.0 L (10-30) ug/mL Ur Barbiturates Sc reen (Negative) ng/mL Ur Phencyclidine S crn (Negative) ng/mL Ur Amphetamines Sc reen (Negative) ng/mL U Benzodiazepines Scrn (Negative) ng/mL Urine Cocaine Scre en (Negative) ng/mL U Marijuana (THC) Screen (Negative) ng/mL Ethyl Alcohol 266 H 150 H (0-10) mg/dL Discharge Plan Discharge Patient Disposition: Admitted As Inpatient Admit Provider: Anastacia Senior Clinical Impression: Suicidal ideation, Alcohol use disorder, severe, dependence, Anxiety Bipolar disorder Qualifiers: Active/Remission status: remission status unspecified Qualified Code(s): F31.9 - Bipolar disorder, unspecified Depression Qualifiers: Depression Type: unspecified Qualified Code(s): F32.9 - Major depressive disorder, single episode, unspecified Alcohol intoxication Qualifiers: Complication of substance-induced condition: uncomplicated Qualified Code(s): F10.920 - Alcohol use, unspecified with intoxication, uncomplicated Condition: Stable Coding Level of Care Code ED [employer] for [facility] Fwd Exam Comprehensive
[2021-01-31 21:54] LABS: Add Urine Microscopic? YES; Bacteria Urine 1+ /hpf; Bilirubin Urine Neg (Negative); Blood Urine 3+ (Negative); Glucose Urine UA Norm (Normal); Hyaline Casts Urine 0-4 /lpf; Ketones Urine Negative (Negative); Leukocyte Esterase Urine Negative (Negative); Mucus Urine TRACE /hpf; Nitrate Urine Negative (Negative); Protein Urine Neg (Negative); RBC Urine 25-40 /hpf (0-2); Urine Appearance Clear (CLEAR); Urine Color Yellow (Yellow); Urobilinogen Urine 1 mg/dL (Negative); WBC Urine 0-4 /hpf (0-5); pH Urine 5 (5-7)
[2021-01-31 21:57] LABS: Amphetamines Screen Urine Negative (Negative); Barbiturates Screen Urine Negative (Negative); Benzodiazepines Screen Urine Negative (Negative); Cocaine Screen Urine Negative (Negative); Opiate Screen Urine Negative (Negative); PCP Screen Urine Negative (Negative); THC Screen Urine Negative (Negative)
[2021-01-31 22:12] LABS: Basophils # 0.1 10^3/uL (0.0-0.1); Basophils % 0.7 %; Eosinophils % 0.3 %; Hemoglobin 13.7 g/dL (11.5-15.3); Lymphocytes # 1.5 10^3/uL (0.8-4.8); Lymphocytes % 20.9 %; Mean Corpuscular HGB Conc 33.4 g/dL (30.0-36.0); Mean Corpuscular Hemoglobin 30.9 pg (28.0-34.0); Mean Corpuscular Volume 92.6 fL (81-99); Mean Platelet Volume 9.1 fL (7.4-10.4); Monocytes # 0.4 10^3/uL (0.2-0.9); Monocytes % 6.3 %; Neutrophils # 5.04 10^3/uL (1.8-7.7); Neutrophils % 71.7 %; Nucleated Red Blood Cells % 0 %; Platelet Count 137 10^3/cmm (130-400); Red Blood Count 4.43 10^6/uL (4.1-5.3); Red Cell Distribution Width 14.5 % (12.1-15.1)
[2021-01-31 22:37] LABS: Alanine Aminotransferase 16 U/L (0-33); Albumin Level 3.7 g/dL (3.5-5.2); Alcohol Level 266 mg/dL (0-10); Alkaline Phosphatase 102 IU/L (35-105); Anion Gap 24.8 (5-19); Aspartate Amino Transferase 24 U/L (0-32); Blood Urea Nitrogen 10 mg/dL (6-20); Calcium 7.6 mg/dL (8.5-10.5); Carbon Dioxide 21 mmol/L (22-29); Chloride 99 mmol/L (98-107); Globulin 2.5 g/dL (1.3-4.6); Glomerular Filtration Rate 131.7 mL/min (90-130); Glucose 103 mg/dL (65-115); Lipase 13 U/L (13-60); Osmolality Calculated 291 mOsm/kg (285-295); Potassium 3.8 mmol/L (3.5-5.1); Sodium 141 mmol/L (136-145); Thyroid Stimulating Hormone 2.47 uIU/mL (0.27-4.20); Total Bilirubin 0.7 mg/dL (0.15-1.2); Total Protein 6.2 g/dL (6.6-8.7)
[2021-01-31 22:38] LABS: Acetaminophen < 5.0 ug/mL (10-30); Salicylate < 0.3 mg/dL (3-10)
[2021-01-31] MEDS: chlordiazePOXIDE 25 mg Capsule PO (22:54)
[2021-01-31 23:30] VITALS: BP 169/104; PULSE 113; RESP 17; O2SAT 98
[2021-02-01 00:43] LABS: Alcohol Level 150 mg/dL (0-10)
[2021-02-01 01:25] VITALS: BP 150/94; PULSE 105; RESP 17; TEMP 36.9; O2SAT 98
[2021-02-01] MEDS: LORazepam 2 mg/mL INJ 1 mL IM (01:37)
--- NOTE | 2021-02-01 01:40 | PC.NURSE ---
Patient anxious and pacing, trying to come out of room. Patient given PRN Lorazepam 2mg IM before tranfer to NPU.
[2021-02-01 01:58] VITALS: BP 154/97; PULSE 103; RESP 20; TEMP 37.1; O2SAT 95
--- NOTE | 2021-02-01 03:13 | PC.NURSE ---
Skin assessment revealed no wounds or injuries.
--- NOTE | 2021-02-01 04:59 | PC.NURSE ---
Patient complaining of detox symptoms. Tremors visible. Moderate anxiety. t=100.8, p=125, r=20, uo=176/90. CIWA=10. Patient will be given Ativan 2 mg po.
[2021-02-01] MEDS: LORazepam 2 mg Tablet PO (05:08)
[2021-02-01 06:00] VITALS: BP 153/90; PULSE 125; RESP 20; TEMP 38.2; O2SAT 94
[2021-02-01] MEDS: multivitamin therapeutic Tablet 1 TAB PO (08:11)
[2021-02-01] MEDS: thiamine 100 mg Tablet PO (08:11)
[2021-02-01] MEDS: fluoxetine 20 mg Capsule PO (08:11)
[2021-02-01] MEDS: folic acid 1 mg Tablet PO (08:11)
[2021-02-01] MEDS: ferrous sulfate EC 325 mg Tablet PO ×2 (08:13→17:04)
[2021-02-01] MEDS: hyDROXYzine 25 mg Capsule 50 MG PO ×2 (10:38→17:03)
--- NOTE | 2021-02-01 13:03 | PM.NHP ---
Providers/Chief Complaint Admitting Physician: Anastacia Senior DO Chief Complaint: si/alcohol detox HPI NPU History of Present Illness Yeimy Perry is a 50 year old female well known to the unit with multiple hospitalizations under similar circumstances of presenting with alcohol intoxication and suicidal ideation currently presenting with alcohol intoxication and reporting suicidal ideation. Patient states that she had abstained from alcohol for about a week prior to relapse drinking approximately 2 pints per day of liquor. Patient states that she did not follow-up for outpatient treatment and has been questionably compliant with her medications after discharge. Patient denies any interval perceptual disturbances but reports seeing and hearing things throughout this morning after being admitted to the hospital. She also reports intermittent depressive symptoms over the past couple of weeks since discharge but has also been in the context of alcohol use. She continues to report feeling tremulous with shakes, stomach cramping, some difficulty sleeping. She reports her depressive symptoms as feeling down and low, decreased motivation and is somewhat vague with regards to ongoing life stress. Review of Systems General: Reports: 10 or more systems reviewed and unremarkable except in HPI and below Meds NPU Home Medications Medication Instructions Recorded Confirmed Last Taken Type ferrous sulfate 325 mg (65 mg 325 mg PO BID #60 tab 06/30/20 02/01/21 12/26/20 Rx iron) tablet multivitamin with folic acid 400 1 tab PO DAILY 30 Days #30 tab 06/30/20 02/01/21 Unknown Rx mcg tablet ondansetron HCl [Zofran] 4 mg PO Q6H PRN #7 tab 08/07/20 02/01/21 Unknown Rx fluoxetine 20 mg PO DAILY 30 Days #30 cap 01/14/21 02/01/21 Unknown Rx hydroxyzine pamoate 50 mg PO QPM PRN 30 Days #30 cap 01/14/21 02/01/21 Unknown Rx meloxicam 15 mg PO BEDTIME 30 Days #30 tab 01/14/21 02/01/21 Unknown Rx thiamine mononitrate (vit B1) 100 mg PO DAILY 30 Days #30 tab 01/14/21 02/01/21 Unknown Rx [Vitamin B-1 (mononitrate)] ziprasidone HCl 80 mg PO BEDTIME 30 Days #60 cap 01/14/21 02/01/21 Unknown Rx Allergies Allergy/AdvReac Type Severity Reaction Status Date / Time acetaminophen [From [place]] AdvReac Mild ADR-Itching Verified 12/26/20 13:18 hydrocodone [From [place]] AdvReac Mild ADR-Itching Verified 12/26/20 13:18 PFSH NPU PFSH: Medical History Alcohol dependence Has been prescribed antabuse Arthritis of right knee Bipolar disorder Chronic post-traumatic stress disorder (PTSD) Depressive disorder Hx of cholecystitis Iron deficiency anemia Obesity (BMI 35.0-39.9 without comorbidity) Recurrent pancreatitis Right elbow tendinitis Suicidal thoughts in the past Surgical History History of Hx of gastric bypass Hx of hernia repair Hx of tubal ligation Hx of unilateral salpingectomy Right Family History Other Diabetes Heart disease Social History Smoking and tobacco status: never smoked Alcohol intake: current History of recent travel: No Current gender identity: Female Other Psychiatric History: Other Psychiatric History: Multiple admissions related to alcohol use and passive suicidal ideation Reports history of overdose attempt around age 43, denies any subsequent attempts or self-harm behavior Longstanding noncompliance with follow-up, substance counseling/treatment Mental Status Exam MSE Comments: Disheveled, unkempt, wearing hospital scrubs, obese, tired appearing, calm, cooperative, interactive, good eye contact Psychomotor activity is somewhat decreased, no agitation Speech is normal rate and volume, spontaneous, clear articulation, not pressured I feel exhausted, full range, not labile Alert and oriented to person, place, time, situation Memory and concentration appear to be intact per interview Intellectual functioning appears to be average based on vocabulary, interview Thought process, linear Thought content, no delusions, no hallucinations, does not appear to be attending to any internal stimuli, no suicidal homicidal ideation Insight and judgment appear to be fair Vitals/I&O/Wt Last Vital Signs Temp 100.8 F H 02/01/21 06:00 Pulse 125 H 02/01/21 06:00 Resp 20 H 02/01/21 06:00 BP 153/90 02/01/21 06:00 Pulse Ox 94 02/01/21 06:00 Weight last 48 hrs Weight 117.934 kg Data NPU : 01/31/21 22:08 01/31/21 22:08 A&P Assessment and plan (1) Suicidal ideation: Status: Acute (2) Alcohol dependence with withdrawal: Status: Acute Qualifiers: Complication of substance-induced condition: uncomplicated Qualified Code(s): F10.230 - Alcohol dependence with withdrawal, uncomplicated (3) Chronic post-traumatic stress disorder (PTSD): Status: Chronic Additional A&P Information Longstanding alcohol dependence presenting over the last couple of months in a similar manner with alcohol intoxication and suicidal ideation reporting worsening depressive symptoms. Patient does have longstanding history of chronic posttraumatic stress disorder, currently not reporting any PTSD symptoms but reports ongoing mood symptoms in the context of drinking a couple pints per day. She would likely benefit from medically managed withdrawal as well as coordination for post discharge substance treatment which the patient would like to do outpatient. Unfortunately, she continues to be noncompliant with post discharge instructions to include follow-up for substance counseling/treatment and likely noncompliant with her medication. VOLUNTARY ADMIT to inpatient psychiatry [facility] protocol CONTINUE home medication Discussed need for abstaining from the use of alcohol and substances as well as the need for post discharge substance counseling/treatment Coordinate with director social welfare for post discharge substance counseling/treatment Encourage patient to participate in unit activities to include group sessions, unit milieu Involuntary Hold Information 96 Hour Hold: 96 Hour Involuntary Admission: No Attestations NPU Medical Necessity Statement*: Require psychiatric hospitalization for medically managed withdrawal, medication stabilization, coordination for safe discharge Anticipate hospital stay to exceed 2 midnights Time Spent in Patient Care: Greater than 35 minutes (>than 50% of time spent in counselling and/or direct pt care on unit). Coding Level of Care Code Acute Ciso for Hannah Fulton Diagnoses Suicidal ideation R45.851 Alcohol dependence with withdrawal F10.230 Complication of substance-induced condition: uncomplicated Chronic post-traumatic stress disorder (PTSD) F43.12
[2021-02-01] MEDS: ondansetron 4 MG Tablet PO (13:11)
--- NOTE | 2021-02-01 13:13 | PC.NURSE ---
PATIENT C/O NAUSEA. ZOFRAN 4MG ADMINISTERED. WILL MONITOR FOR DRUG EFFECTIVENESS
[2021-02-01 14:00] VITALS: BP 131/91; PULSE 89; RESP 18; TEMP 36.4; O2SAT 97
[2021-02-01 19:47] VITALS: BP 159/112; PULSE 90; RESP 15; TEMP 37.2; O2SAT 96
[2021-02-01] MEDS: ziprasidone hcl 40 mg Capsule 80 MG PO (20:32)
[2021-02-01] MEDS: trazodone 50 mg Tablet PO (20:33)
[2021-02-01] MEDS: meloxicam 7.5 mg tablet 15 MG PO (20:33)
--- NOTE | 2021-02-01 21:30 | PC.NURSE ---
patient requested Trazadone 50mg PO for sleep Given at 20:33.
[2021-02-02 06:00] VITALS: BP 124/81; PULSE 73; RESP 16; TEMP 36.4; O2SAT 95
[2021-02-02] MEDS: fluoxetine 20 mg Capsule PO (08:17)
[2021-02-02] MEDS: multivitamin therapeutic Tablet 1 TAB PO (08:18)
[2021-02-02] MEDS: folic acid 1 mg Tablet PO (08:18)
[2021-02-02] MEDS: thiamine 100 mg Tablet PO (08:18)
[2021-02-02] MEDS: ferrous sulfate EC 325 mg Tablet PO ×2 (08:18→21:00)
[2021-02-02 14:00] VITALS: BP 128/87; PULSE 81; RESP 20; TEMP 36.9; O2SAT 96
--- NOTE | 2021-02-02 14:11 | PM.NPN ---
Subjective NPU Subjective: Interval history: Patient reports feeling much better today, continues to have some stomach cramping, diaphoresis, tremors but states that she feels less shaky and that she is able to eat a little bit more today Denies any interval depressive symptoms, denies any suicidal ideation Communicates understanding of the need to abstain from use of alcohol Reports being compliant with her medication, denies any medication side effects Mental Status Exam MSE Comments: Lying in bed, unkempt, wearing hospital scrubs, obese, calm, cooperative, good eye contact Psychomotor activity is somewhat decreased, no agitation Speech is normal rate and volume, spontaneous, clear articulation, not pressured I feel little better, full range, not labile Alert and oriented to person, place, time, situation Memory and concentration appear to be intact per interview Thought process, linear, no flight of ideas Thought content, no delusions, no hallucinations, no suicidal homicidal ideation Insight and judgment appear to be fair Vitals/I&O/Wt Last Vital Signs Temp 97.5 F L 02/02/21 06:00 Pulse 73 02/02/21 06:00 Resp 16 02/02/21 06:00 BP 124/81 02/02/21 06:00 Pulse Ox 95 02/02/21 06:00 Weight last 48 hrs Weight 117.934 kg Data NPU : 01/31/21 22:08 01/31/21 22:08 A&P Assessment and plan (1) Suicidal ideation: Status: Acute (2) Chronic post-traumatic stress disorder (PTSD): Status: Chronic (3) Alcohol dependence with withdrawal: Status: Acute Qualifiers: Complication of substance-induced condition: uncomplicated Qualified Code(s): F10.230 - Alcohol dependence with withdrawal, uncomplicated Additional A&P Information Reports significant improvement in withdrawal symptoms, denies any interval depressive symptoms, denies any interval suicidal ideation CONTINUE current medication, continue to monitor Involuntary Hold Information 96 Hour Hold: 96 Hour Involuntary Admission: No Attestations NPU Medical Necessity Statement*: Continues require medically managed withdrawal, medication stabilization, coordination for safe discharge Coding Level of Care Code Acute [employer] for Hannah Fulton Diagnoses Suicidal ideation R45.851 Chronic post-traumatic stress disorder (PTSD) F43.12 Alcohol dependence with withdrawal F10.230 Complication of substance-induced condition: uncomplicated
[2021-02-02] MEDS: acetaminophen 325 mg Tablet 650 MG PO (14:42)
[2021-02-02 19:50] VITALS: BP 137/96; PULSE 76; RESP 17; TEMP 37.6; O2SAT 95
[2021-02-02] MEDS: meloxicam 7.5 mg tablet 15 MG PO (20:59)
[2021-02-02] MEDS: ziprasidone hcl 40 mg Capsule 80 MG PO (20:59)
[2021-02-02] MEDS: trazodone 50 mg Tablet PO (21:00)
--- NOTE | 2021-02-02 22:37 | PC.NURSE ---
Patient request sleep aid with scheduled meds. Trazodone 50mg PO given at 21:00.
[2021-02-03] MEDS: hyDROXYzine 25 mg Capsule 50 MG PO (00:36)
--- NOTE | 2021-02-03 00:48 | PC.NURSE ---
CIWA 13 pt sweating, came to desk, reports hearing a radio, reports irritability, moderate tremor noted, beads of sweat on brow, pt is having a hard time sleeping, trazodone did not help her, she does not want a 2nd dose. pt reported nausea and heart burn feelings, med nurse notified. no CIWA meds given at this time for a score of 13. will continue to observe.
--- NOTE | 2021-02-03 03:38 | PC.NURSE ---
PM ASSESSMENT PT V/S ARE WNL WITH EXCEPTION OF HER BP 137/96. PT WAS IN THE DAYROOM AT THE BEGINNING OF SHIFT, SHE IS UPSET THAT NURSING DID NOT ADMINISTER ATIVAN TODAY. PT DID SCORE A 3 ON THE FIRST CIWA, AND LATER A 13, SHE REPORTED HEARING A RADIO WITH MUSIC ON, PT DENIES VH, AT THIS TIME, AND SHE DENIES PAIN. PT WAS ANXIOUS, MED NURSE ADMINISTERED VISTERIL, AND TRAZODONE TO HELP PT SLEEP, PT RESTED FOR OVER AN HOUR, WOKE UP CALLING OUT, STATED, I HAD A NIGHTMARE, IT WAS VIVID PT WAS OFFERED A 2ND DOSE OF TRAZODONE, THE PATIENT DECLINED. SHE IS RESTING IN HER BED AT THIS TIME. WILL CONTINUE TO OBSERVE.
[2021-02-03 05:50] VITALS: BP 127/88; PULSE 68; RESP 17; TEMP 36.4; O2SAT 94
[2021-02-03] MEDS: folic acid 1 mg Tablet PO (08:07)
[2021-02-03] MEDS: multivitamin therapeutic Tablet 1 TAB PO (08:07)
[2021-02-03] MEDS: fluoxetine 20 mg Capsule PO (08:07)
[2021-02-03] MEDS: thiamine 100 mg Tablet PO (08:07)
[2021-02-03] MEDS: ferrous sulfate EC 325 mg Tablet PO (08:07)
[2021-02-03 10:30] VITALS: BP 127/88; PULSE 68; RESP 17; TEMP 36.4; O2SAT 94
--- NOTE | 2021-02-03 10:44 | PM.NDC ---
Diagnoses at Discharge Discharge Diagnosis (1) Suicidal ideation: Status: Acute (2) Chronic post-traumatic stress disorder (PTSD): Status: Chronic (3) Alcohol dependence with withdrawal: Status: Acute Qualifiers: Complication of substance-induced condition: uncomplicated Qualified Code(s): F10.230 - Alcohol dependence with withdrawal, uncomplicated Reason for Visit Reason for Visit: si/alcohol detox Hospital Course Hospital Course 50 year old female well known to the unit with multiple hospitalizations under similar circumstances of presenting with alcohol intoxication and suicidal ideation currently presenting with alcohol intoxication and reporting suicidal ideation. Patient states that she had abstained from alcohol for about a week prior to relapse drinking approximately 2 pints per day of liquor. Patient states that she did not follow-up for outpatient treatment and has been questionably compliant with her medications after discharge. Some withdrawal symptoms and was placed on CIWA protocol. Patient did report some perceptual disturbances which were transient but quickly improved. Patient had reported some depressive symptoms which also had improved. She had reported some previous worsening of depressive symptoms but was in the context of increased alcohol use. Patient mostly stayed in her bed but participated in unit milieu with no reports of any behavioral disturbances. She was continued on her home medication with no reports of any medication side effects. Patient was not suicidal and was not endorsing any psychiatric symptoms at the time of discharge and did not appear to pose an imminent threat of harm to self or others. Low to moderate risk of harm to self and others given no current suicidal ideation and no current report of psychiatric symptoms as well as patient's demonstration of help seeking behavior. Patient's risk will continue to be elevated if she continues to be noncompliant with recommendation to abstain from use of alcohol and substances leading to unexpected, impulsive behavior. Risk mitigation included psychiatric hospitalization for observation for return of any suicidal ideation or worsening psychiatric symptoms, medication stabilization as well as recommendation to abstain from use of substances and alcohol and recommended follow on substance counseling and compliance with her medication and medication management follow-up. She was able to communicate her understanding of the need to abstain from use of substances and alcohol as well as the need for compliance with her medication, medication management and substance counseling follow-up in order to further mitigate her risk of harm to self and others. Involuntary Hold Information 96 Hour Hold: 96 Hour Involuntary Admission: No Mental Status Exam MSE Comments: Sitting up in bed, tired appearing, appropriately groomed and dressed wearing hospital scrubs, calm, cooperative, good eye contact Psychomotor activity is somewhat decreased, no agitation Speech is normal rate and volume, spontaneous, clear articulation, not pressured I feel better, full range, not labile Alert and oriented to person, place, time, situation Memory and concentration appear to be intact per interview Thought process, linear, no flight of ideas Thought content, no delusions, no hallucinations, no suicidal homicidal ideation Insight and judgment appear to be fair Discharge Data Data Completed and Pending: Completed Studies During Hospitalization Category Date Time Status CT facial bones w o con* [id number] Urgen t Cat Scan 01/31/21 21:[address] head wo con* [id number] Urgent Cat Scan 01/31/21 21:17 Completed Vitals: Last Vital Signs Temp 97.5 F L 02/03/21 10:30 Pulse 68 02/03/21 10:30 Resp 17 02/03/21 10:30 BP 127/88 02/03/21 10:30 Pulse Ox 94 02/03/21 10:30 Discharge Plan Discharge Patient Disposition: Home Condition: Stable Prescriptions: Continued Thera 400 mcg tablet 1 tab PO DAILY 30 Days Qty: 30 RF: 12 ferrous sulfate 325 mg (65 mg iron) tablet 325 mg PO BID Qty: 60 RF: 12 thiamine mononitrate (vit B1) [Vitamin B-1 (mononitrate)] 100 mg Tablet 100 mg PO DAILY 30 Days Qty: 30 RF: 1 meloxicam 15 mg tablet 15 mg PO BEDTIME 30 Days Qty: 30 RF: 0 hydroxyzine pamoate 50 mg capsule 50 mg PO QPM PRN (Reason: anxiety/insomnia) 30 Days Qty: 30 RF: 1 ziprasidone HCl 40 mg Capsule 80 mg PO BEDTIME 30 Days Qty: 60 RF: 1 fluoxetine 20 mg Capsule 20 mg PO DAILY 30 Days Qty: 30 RF: 1 Discontinued ondansetron HCl [Zofran] 4 mg tablet 4 mg PO Q6H PRN (Reason: nausea and vomiting) Qty: 7 RF: 0 Discharge Orders: Discharge Order (Routine); Ordered 02/03/21 Ordered By: Anastacia Senior Referrals: [facility] [Outside] - 02/17/21 11:00 am Eric Hartman LCSW [Referring] - 02/22/21 8:45 am (Will be seen in office.) Rosa Win APRN [Nurse Practitioner] - 02/14/21 10:00 am (Patient is Via Phone. ) Discharge Diet: Regular Discharge Activity: Resume usual activity Patient Instructions: Suicide Prevention for Adults (GEN), Opioid Safety Discharge Attestations NPU Time Spent in Discharge Care*: greater than 30 min Status at Discharge: Cognitive status at discharge: cognitively intact, Behavioral status at discharge: cooperative, Functional status at discharge: independent ambulation Overall status at discharge: patient is back to baseline Coding Level of Care Code Acute Chg [facility] note Diagnoses Suicidal ideation R45.851 Chronic post-traumatic stress disorder (PTSD) F43.12 Alcohol dependence with withdrawal F10.230 Complication of substance-induced condition: uncomplicated
== END 2021-02-03 11:41 | disposition home or self-care (01) | DRG 897 ==
LOC: ER 23:01 → NP 02-01 01:15
PROVIDERS: Admitting Provider Psychiatry & Neurology Psychiatry; Emergency Provider Emergency Medicine; Visit Provider Psychiatry & Neurology Psychiatry
DX: F10.229 Alcohol dependence with intoxication, unspecified (principal); R45.851 Suicidal ideations; F10.239 Alcohol dependence with withdrawal, unspecified; Y90.9 Presence of alcohol in blood, level not specified; M17.11 Unilateral primary osteoarthritis, right knee; F31.9 Bipolar disorder, unspecified; F43.12 Post-traumatic stress disorder, chronic; D50.9 Iron deficiency anemia, unspecified; E66.9 Obesity, unspecified; Z68.39 Body mass index [BMI] 39.0-39.9, adult; Z98.84 Bariatric surgery status
CPT/HCPCS: 36415; 70450; 70486; 80053; 80306; 80307; 81001; 83690; 84443; 85025; 96372; 99285; J2060; Q0162

== ENCOUNTER → 2021-02-11 11:59 | Outpatient (BNVA) | payer MEDICAID, SELFPAY | PROVIDERS: Visit Provider Nurse Practitioner | DX: R50.9 Fever, unspecified (principal); B34.9 Viral infection, unspecified; Z11.52 Encounter for screening for COVID-19 | CPT/HCPCS: 87071; 87635; 87880 ==

== ENCOUNTER 2021-02-13 20:57 | Emergency (ER) | payer MEDICAID, SELFPAY ==
[2021-02-13 21:09] VITALS: BP 144/91; PULSE 95; RESP 16; TEMP 36.6; O2SAT 94; BMI 30.4
[2021-02-13 22:04] LABS: Add Urine Microscopic? NO; Charge for UA Resulting for Rev
[2021-02-13 22:06] LABS: Basophils % 0.3 %; Lymphocytes # 1.5 10^3/uL (0.8-4.8); Lymphocytes % 42.7 %; Mean Corpuscular HGB Conc 33.3 g/dL (30.0-36.0); Mean Corpuscular Hemoglobin 30.7 pg (28.0-34.0); Mean Corpuscular Volume 92.1 fL (81-99); Monocytes # 0.4 10^3/uL (0.2-0.9); Monocytes % 10.5 %; Neutrophils % 46.5 %; Nucleated Red Blood Cells % 0 %; Platelet Count 171 10^3/cmm (130-400); Red Blood Count 4.56 10^6/uL (4.1-5.3); Red Cell Distribution Width 14.2 % (12.1-15.1); White Blood Count 3.4 10^3/uL (4.0-10.0)
[2021-02-13 22:13] LABS: Bilirubin Urine Neg (Negative); Blood Urine Neg (Negative); Glucose Urine UA Norm (Normal); Ketones Urine Negative (Negative); Leukocyte Esterase Urine Negative (Negative); Nitrate Urine Negative (Negative); Protein Urine Neg (Negative); Specific Gravity, Urine 1.005 (1.005-1.030); Urine Appearance Clear (CLEAR); Urine Color Yellow (Yellow); Urobilinogen Urine Norm (Negative); pH Urine 5 (5-7)
[2021-02-13 22:14] LABS: HCG Qualitative Urine. Negative (Negative)
[2021-02-13 22:21] LABS: Alanine Aminotransferase 37 U/L (0-33); Albumin Level 3.6 g/dL (3.5-5.2); Alkaline Phosphatase 144 IU/L (35-105); Anion Gap 23.7 (5-19); Aspartate Amino Transferase 49 U/L (0-32); Blood Urea Nitrogen 8 mg/dL (6-20); Calcium 7.7 mg/dL (8.5-10.5); Carbon Dioxide 22 mmol/L (22-29); Chloride 102 mmol/L (98-107); Creatinine Clr Calc Pharmacy 135.0891; Globulin 2.6 g/dL (1.3-4.6); Glomerular Filtration Rate 106.7 mL/min (90-130); Glucose 92 mg/dL (65-115); Lipase 17 U/L (13-60); Osmolality Calculated 296 mOsm/kg (285-295); Potassium 3.7 mmol/L (3.5-5.1); Sodium 144 mmol/L (136-145); Total Bilirubin 0.6 mg/dL (0.15-1.2); Total Protein 6.2 g/dL (6.6-8.7)
[2021-02-13 22:21] LABS: Amphetamines Screen Urine Negative (Negative); Barbiturates Screen Urine Negative (Negative); Benzodiazepines Screen Urine Negative (Negative); Cocaine Screen Urine Negative (Negative); Opiate Screen Urine Negative (Negative); PCP Screen Urine Negative (Negative); THC Screen Urine Negative (Negative)
[2021-02-13 22:22] LABS: Acetaminophen < 5.0 ug/mL (10-30); Salicylate < 0.3 mg/dL (3-10)
--- NOTE | 2021-02-13 22:39 | ED_ITS ---
HPI - Psych General: Chief Complaint: Psychiatric Symptoms Stated Complaint: WANTS DETOX - ETOH ON BOARD Time Seen by Provider: 02/13/21 21:31 Source: patient Mode of arrival: EMS Limitations: no limitations History of Present Illness: HPI Narrative: 50-year-old female patient was brought into the emergency department via EMS with vague complaints. She did not give much information to the nurse, however when I spoke to her she said that she did not think she was feeling well. When asked further she stated that she has been drinking a lot of vodka today and has some abdominal pain. She denies any vomiting but states she has some nausea. She denies any diarrhea. She denies any head ache. She denies any chest pain or difficulty breathing. Context: recent alcohol abuse Review of Systems General: Reports: 10 or more systems reviewed and unremarkable except in HPI and below PFSH ED PFSH: Medical History Alcohol dependence Has been prescribed antabuse Anxiety Arthritis of right knee Bipolar disorder Chronic post-traumatic stress disorder (PTSD) Depression Depressive disorder Hx of cholecystitis Iron deficiency anemia Obesity (BMI 35.0-39.9 without comorbidity) Recurrent pancreatitis Right elbow tendinitis Suicidal thoughts in the past Surgical History History of Hx of gastric bypass Hx of hernia repair Hx of tubal ligation Hx of unilateral salpingectomy Right Family History Other Diabetes Heart disease Social History Smoking and tobacco status: never smoked Alcohol intake: current History of recent travel: No Current gender identity: Female Female Reproductive History: Date of last menstrual period: 04/09/20 Physical Exam Const: COMMON NORMALS: no acute distress, average body habitus, patient oriented x3, no limitations, healthy appearing, alert and well nourished HENMT: COMMON NORMALS: normocephalic, atraumatic and moist oral mucous membranes HEAD & SCALP: normocephalic and atraumatic Neck/C-Spine: COMMON NORMALS: no meningeal signs and no JVD Resp: COMMON NORMALS: normal respiratory effort, No retractions, No use of accessory muscles, clear to auscultation bilaterally and percussion normal AUSCULTATION: clear to auscultation bilaterally PERCUSSION: percussion normal Cardio: COMMON NORMALS: no JVD, regular rate, regular rhythm, S1 normal heart sound present, S2 normal heart sound present, No gallops present (Cardio), No clicks present (Cardio), No murmurs present (Cardio), No rub (Cardio) and Peripheral pulses 2+ throughout RATE: regular rate RHYTHM: regular rhythm HEART SOUNDS: S1 normal heart sound present and S2 normal heart sound present PERIPHERAL PULSES: Peripheral pulses 2+ throughout GI: COMMON NORMALS: Normal to inspection, nondistended, normoactive bowel sounds present, Soft to palpation, non-tender, No hepatosplenomegaly present, no masses and no bruits PALPATION: Yes Soft to palpation and Yes No hepatosplenomegaly present Extremity: COMMON NORMALS: normal to inspection, full ROM, capillary refill normal, no calf tenderness and no pedal edema Neuro: COMMON NORMALS: patient oriented x3 SENSORIUM/ORIENTATION: Yes alert MENINGEAL SIGNS: Yes no meningeal signs Skin: COMMON NORMALS: no rashes or lesions noted, no wounds, turgor normal, no jaundice, no petechiae and no mottling GENERAL SKIN EXAM: no rashes or lesions noted and turgor normal MDM - Psych MDM Narrative: Medical decision making narrative: 50-year-old female patient who presented to the emergency department with nonspecific symptoms. Examination in the emergency department was unremarkable other. Patient was unwilling to be worked up and decided she wanted to leave AGAINST MEDICAL ADVICE. She was counseled on the dangers of leaving before work-up was complete but she insisted. At this time she is alert and oriented and appears capable of making sound medical decisions so after discussing the risks and benefits with her she left AGAINST MEDICAL ADVICE. Lab Data: Labs: Lab Results 02/13/21 02/13/21 02/13/21 Range/Units 21:16 21:16 21:55 WBC 3.4 L (4.0-10.0) 10^3/ uL RBC 4.56 (4.1-5.3) 10^6/u L Hgb 14.0 (11.5-15.3) g/dL Hct 42.0 (37.0-47.0) % MCV 92.1 (81-99) fL MCH 30.7 (28.0-34.0) pg MCHC 33.3 (30.0-36.0) g/dL RDW 14.2 (12.1-15.1) % Plt Count 171 (130-400) 10^3/c mm MPV 9.0 (7.4-10.4) fL Neut % (Auto) 46.5 % Lymph % (Auto) 42.7 % [place] % (Auto) 10.5 % Eos % (Auto) 0.0 % Baso % (Auto) 0.3 % Neut # (Auto) 1.60 L (1.8-7.7) 10^3/u L Lymph # (Auto) 1.5 (0.8-4.8) 10^3/u L [place] # (Auto) 0.4 (0.2-0.9) 10^3/u L Eos # (Auto) 0.0 (0.0-0.8) 10^3/u L Baso # (Auto) 0.0 (0.0-0.1) 10^3/u L Nucleated RBC % (a uto) 0 % Nucleated RBCs # 0.0 /100WBC Sodium (136-145) mmol/L Potassium (3.5-5.1) mmol/L Chloride (98-107) mmol/L Carbon Dioxide (22-29) mmol/L Anion Gap (5-19) BUN (6-20) mg/dL Creatinine (0.5-0.9) mg/dL GFR Calculation (90-130) mL/min Glucose (65-115) mg/dL Calculated Osmolal ity (285-295) mOsm/k g Calcium (8.5-10.5) mg/dL Total Bilirubin (0.15-1.2) mg/dL AST (0-32) U/L ALT (0-33) U/L Alkaline Phosphata se (35-105) IU/L Total Protein (6.6-8.7) g/dL Albumin (3.5-5.2) g/dL Globulin (1.3-4.6) g/dL Lipase (13-60) U/L HCG, Qual (Negative) Urine Color Yellow (Yellow) Urine Appearance Clear (CLEAR) Urine pH 5 (5-7) Ur Specific Gravit y 1.005 (1.005-1.030) Urine Protein Neg (Negative) Urine Glucose (UA) Norm (Normal) Urine Ketones Negative (Negative) Urine Blood Neg (Negative) Urine Nitrate Negative (Negative) Urine Bilirubin Neg (Negative) Urine Urobilinogen Norm (Negative) mg/dL Ur Leukocyte Marlys ase Negative (Negative) Salicylates (3-10) mg/dL Urine Opiates Scre en Negative (Negative) ng/mL Acetaminophen (10-30) ug/mL Ur Barbiturates Sc reen Negative (Negative) ng/mL Ur Phencyclidine S crn Negative (Negative) ng/mL Ur Amphetamines Sc reen Negative (Negative) ng/mL U Benzodiazepines Scrn Negative (Negative) ng/mL Urine Cocaine Scre en Negative (Negative) ng/mL U Marijuana (THC) Screen Negative (Negative) ng/mL Ethyl Alcohol 02/13/21 02/13/21 Range/Units 21:55 21:55 WBC (4.0-10.0) 10^3/ uL RBC (4.1-5.3) 10^6/u L Hgb (11.5-15.3) g/dL Hct (37.0-47.0) % MCV (81-99) fL MCH (28.0-34.0) pg MCHC (30.0-36.0) g/dL RDW (12.1-15.1) % Plt Count (130-400) 10^3/c mm MPV (7.4-10.4) fL Neut % (Auto) % Lymph % (Auto) % [place] % (Auto) % Eos % (Auto) % Baso % (Auto) % Neut # (Auto) (1.8-7.7) 10^3/u L Lymph # (Auto) (0.8-4.8) 10^3/u L [place] # (Auto) (0.2-0.9) 10^3/u L Eos # (Auto) (0.0-0.8) 10^3/u L Baso # (Auto) (0.0-0.1) 10^3/u L Nucleated RBC % (a uto) % Nucleated RBCs # /100WBC Sodium 144 (136-145) mmol/L Potassium 3.7 (3.5-5.1) mmol/L Chloride 102 (98-107) mmol/L Carbon Dioxide 22 (22-29) mmol/L Anion Gap 23.7 H (5-19) BUN 8 (6-20) mg/dL Creatinine 0.6 (0.5-0.9) mg/dL GFR Calculation 106.7 (90-130) mL/min Glucose 92 (65-115) mg/dL Calculated Osmolal ity 296 H (285-295) mOsm/k g Calcium 7.7 L (8.5-10.5) mg/dL Total Bilirubin 0.6 (0.15-1.2) mg/dL AST 49 H (0-32) U/L ALT 37 H (0-33) U/L Alkaline Phosphata se 144 H (35-105) IU/L Total Protein 6.2 L (6.6-8.7) g/dL Albumin 3.6 (3.5-5.2) g/dL Globulin 2.6 (1.3-4.6) g/dL Lipase 17 (13-60) U/L HCG, Qual Negative (Negative) Urine Color (Yellow) Urine Appearance (CLEAR) Urine pH (5-7) Ur Specific Gravit y (1.005-1.030) Urine Protein (Negative) Urine Glucose (UA) (Normal) Urine Ketones (Negative) Urine Blood (Negative) Urine Nitrate (Negative) Urine Bilirubin (Negative) Urine Urobilinogen (Negative) mg/dL Ur Leukocyte Marlys ase (Negative) Salicylates < 0.3 L (3-10) mg/dL Urine Opiates Scre en (Negative) ng/mL Acetaminophen < 5.0 L (10-30) ug/mL Ur Barbiturates Sc reen (Negative) ng/mL Ur Phencyclidine S crn (Negative) ng/mL Ur Amphetamines Sc reen (Negative) ng/mL U Benzodiazepines Scrn (Negative) ng/mL Urine Cocaine Scre en (Negative) ng/mL U Marijuana (THC) Screen (Negative) ng/mL Ethyl Alcohol Cancelled Discharge Plan Discharge Patient Disposition: Left Against Medical Advice Clinical Impression: Alcohol use disorder, severe, dependence, Abdominal pain Prescriptions: No Action Thera 400 mcg tablet 1 tab PO DAILY 30 Days Qty: 30 RF: 12 ferrous sulfate 325 mg (65 mg iron) tablet 325 mg PO BID Qty: 60 RF: 12 meloxicam 15 mg tablet 15 mg PO BEDTIME 30 Days Qty: 30 RF: 0 hydroxyzine pamoate 50 mg capsule 50 mg PO QPM PRN (Reason: anxiety/insomnia) 30 Days Qty: 30 RF: 1 ziprasidone HCl 40 mg Capsule 80 mg PO BEDTIME 30 Days Qty: 60 RF: 1 fluoxetine 20 mg Capsule 20 mg PO DAILY 30 Days Qty: 30 RF: 1 Patient Instructions: Abdominal Pain (ED) Coding Level of Care Code 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
== END 2021-02-13 22:17 | disposition left against medical advice (07) ==
PROVIDERS: Emergency Provider Family Medicine
DX: F10.20 Alcohol dependence, uncomplicated (principal); R10.9 Unspecified abdominal pain; Z53.21 Procedure and treatment not carried out due to patient leaving prior to being seen by health care provider
CPT/HCPCS: 80053; 80306; 80307; 81003; 81025; 83690; 85025; 99283

== ENCOUNTER 2021-02-14 17:40 | Emergency (ER) | payer MEDICAID, SELFPAY ==
[2021-02-14 17:42] VITALS: BP 125/84; PULSE 95; RESP 15; O2SAT 93; BMI 33.4
[2021-02-14 18:20] LABS: Add Urine Microscopic? NO; Charge for UA Resulting for Rev
[2021-02-14 18:22] LABS: Bilirubin Urine Neg (Negative); Blood Urine Neg (Negative); Glucose Urine UA Norm (Normal); Ketones Urine 1+ (Negative); Leukocyte Esterase Urine Negative (Negative); Nitrate Urine Negative (Negative); Protein Urine Neg (Negative); Specific Gravity, Urine 1.005 (1.005-1.030); Urine Appearance Clear (CLEAR); Urine Color Yellow (Yellow); Urobilinogen Urine Norm (Negative); pH Urine 5 (5-7)
[2021-02-14 18:23] LABS: HCG Qualitative Urine. Negative (Negative)
[2021-02-14 18:24] LABS: Basophils % 0.6 %; Eosinophils % 0.3 %; Hematocrit 38.9 % (37.0-47.0); Hemoglobin 13.1 g/dL (11.5-15.3); Lymphocytes # 1.4 10^3/uL (0.8-4.8); Lymphocytes % 37.3 %; Mean Corpuscular HGB Conc 33.7 g/dL (30.0-36.0); Mean Corpuscular Hemoglobin 30.8 pg (28.0-34.0); Mean Corpuscular Volume 91.5 fL (81-99); Mean Platelet Volume 9.2 fL (7.4-10.4); Monocytes # 0.3 10^3/uL (0.2-0.9); Monocytes % 8.6 %; Neutrophils # 1.92 10^3/uL (1.8-7.7); Neutrophils % 52.9 %; Nucleated Red Blood Cells % 0 %; Platelet Count 153 10^3/cmm (130-400); Red Blood Count 4.25 10^6/uL (4.1-5.3); Red Cell Distribution Width 14.1 % (12.1-15.1); White Blood Count 3.6 10^3/uL (4.0-10.0)
[2021-02-14 18:31] LABS: Amphetamines Screen Urine Negative (Negative); Barbiturates Screen Urine Negative (Negative); Benzodiazepines Screen Urine Negative (Negative); Cocaine Screen Urine Negative (Negative); Opiate Screen Urine Negative (Negative); PCP Screen Urine Negative (Negative); THC Screen Urine Negative (Negative)
[2021-02-14 18:44] LABS: Alanine Aminotransferase 32 U/L (0-33); Albumin Level 3.8 g/dL (3.5-5.2); Alkaline Phosphatase 136 IU/L (35-105); Anion Gap 21.6 (5-19); Aspartate Amino Transferase 41 U/L (0-32); Blood Urea Nitrogen 7 mg/dL (6-20); Calcium 7.8 mg/dL (8.5-10.5); Carbon Dioxide 23 mmol/L (22-29); Chloride 100 mmol/L (98-107); Globulin 2.5 g/dL (1.3-4.6); Glomerular Filtration Rate 131.7 mL/min (90-130); Glucose 92 mg/dL (65-115); Osmolality Calculated 290 mOsm/kg (285-295); Potassium 3.6 mmol/L (3.5-5.1); Sodium 141 mmol/L (136-145); Total Bilirubin 1.2 mg/dL (0.15-1.2); Total Protein 6.3 g/dL (6.6-8.7)
[2021-02-14 18:46] LABS: Acetaminophen < 5.0 ug/mL (10-30); Salicylate < 0.3 mg/dL (3-10)
[2021-02-14 18:47] LABS: Alcohol Level 322 mg/dL (0-10)
--- NOTE | 2021-02-15 00:30 | W.ED.ALCOHOL ---
HPI - Alcohol General: Chief Complaint: Alcohol Stated Complaint: SI WITH ETOH Time Seen by Provider: 02/14/21 17:43 Source: patient Mode of arrival: EMS Limitations: no limitations History of Present Illness: HPI narrative: Not given a lot of history, states that she drank a lot of alcohol today. She does not tell me the amount but says she drank a lot of vodka. She denies homicidal or suicidal ideation. She is not cooperative. MD complaint: alcohol intoxication Chronic alcohol use: Yes Previous visits for alcohol intoxication: Yes Recent trauma: No Associated symptoms: Deny abdominal pain, depression, diaphoresis, hematemesis, involuntary movements, melena, nausea, seizure-like activity, suicidal ideation, syncope or vomiting Treatments prior to arrival: none Review of Systems General: Reports: 10 or more systems reviewed and unremarkable except in HPI and below Const: Denies: diaphoresis Card: Denies: syncope GI: Denies: abdominal pain, nausea, vomiting, hematemesis or melena Neuro: Denies: seizure-like activity or involuntary movements Psych: Denies: depression or suicidal ideation [facility] PFSH: Medical History Alcohol dependence Has been prescribed antabuse Anxiety Arthritis of right knee Bipolar disorder Chronic post-traumatic stress disorder (PTSD) Depression Depressive disorder Hx of cholecystitis Iron deficiency anemia Obesity (BMI 35.0-39.9 without comorbidity) Recurrent pancreatitis Right elbow tendinitis Suicidal thoughts in the past Surgical History History of Hx of gastric bypass Hx of hernia repair Hx of tubal ligation Hx of unilateral salpingectomy Right Family History Other Diabetes Heart disease Social History Smoking and tobacco status: never smoked Alcohol intake: current History of recent travel: No Current gender identity: Female Female Reproductive History: Date of last menstrual period: 04/09/20 Physical Exam Const: COMMON NORMALS: no acute distress, average body habitus, patient oriented x3, no limitations, healthy appearing, alert and well nourished HENMT: COMMON NORMALS: normocephalic, atraumatic and moist oral mucous membranes HEAD & SCALP: normocephalic and atraumatic Neck/C-Spine: COMMON NORMALS: no meningeal signs and no JVD Resp: COMMON NORMALS: normal respiratory effort, No retractions, No use of accessory muscles, clear to auscultation bilaterally and percussion normal AUSCULTATION: clear to auscultation bilaterally PERCUSSION: percussion normal Cardio: COMMON NORMALS: no JVD, regular rate, regular rhythm, S1 normal heart sound present, S2 normal heart sound present, No gallops present (Cardio), No clicks present (Cardio), No murmurs present (Cardio), No rub (Cardio) and Peripheral pulses 2+ throughout RATE: regular rate RHYTHM: regular rhythm HEART SOUNDS: S1 normal heart sound present and S2 normal heart sound present PERIPHERAL PULSES: Peripheral pulses 2+ throughout GI: COMMON NORMALS: Normal to inspection, nondistended, normoactive bowel sounds present, Soft to palpation, non-tender, No hepatosplenomegaly present, no masses and no bruits PALPATION: Yes Soft to palpation and Yes No hepatosplenomegaly present Extremity: COMMON NORMALS: normal to inspection, full ROM, capillary refill normal, no calf tenderness and no pedal edema Neuro: COMMON NORMALS: patient oriented x3 SENSORIUM/ORIENTATION: Yes alert MENINGEAL SIGNS: Yes no meningeal signs Skin: COMMON NORMALS: no rashes or lesions noted, no wounds, turgor normal, no jaundice, no petechiae and no mottling GENERAL SKIN EXAM: no rashes or lesions noted and turgor normal Course Reevaluation(s): Reevaluation #1: Patient states that she wants to leave [place]. She is advised that she is intoxicated but she insists. We called her at their home and asked if he was ok with taking her home. He asked that we call for an Uber to bring her home and he will care for her after that. She will therefore leave [place]. Time: 19:25 Vital Signs: Vital signs: Vital Signs Pulse Rate 95 02/14/21 17:42 Respiratory Rate 15 02/14/21 17:42 Blood Pressure 125/84 02/14/21 17:42 Pulse Oximetry 93 02/14/21 17:42 MDM - Alcohol MDM Narrative: Medical decision making narrative: Patient who presents with alcohol intoxication and left AMA before work up was complete. Her was contacted and he was ok with caring for her and asked that she be placed in an Uber and brought home. Medical Records: Attestation: I reviewed the patient's medical records. Lab Data: Attestation: I reviewed the patient's lab results. Labs: Lab Results 02/14/21 02/14/21 02/14/21 Range/Units 18:00 18:00 18:00 WBC (4.0-10.0) 10^3/ uL RBC (4.1-5.3) 10^6/u L Hgb (11.5-15.3) g/dL Hct (37.0-47.0) % MCV (81-99) fL MCH (28.0-34.0) pg MCHC (30.0-36.0) g/dL RDW (12.1-15.1) % Plt Count (130-400) 10^3/c mm MPV (7.4-10.4) fL Neut % (Auto) % Lymph % (Auto) % Jasper % (Auto) % Eos % (Auto) % Baso % (Auto) % Neut # (Auto) (1.8-7.7) 10^3/u L Lymph # (Auto) (0.8-4.8) 10^3/u L Jasper # (Auto) (0.2-0.9) 10^3/u L Eos # (Auto) (0.0-0.8) 10^3/u L Baso # (Auto) (0.0-0.1) 10^3/u L Nucleated RBC % (a uto) % Nucleated RBCs # /100WBC Sodium (136-145) mmol/L Potassium (3.5-5.1) mmol/L Chloride (98-107) mmol/L Carbon Dioxide (22-29) mmol/L Anion Gap (5-19) BUN (6-20) mg/dL Creatinine (0.5-0.9) mg/dL GFR Calculation (90-130) mL/min Glucose (65-115) mg/dL Calculated Osmolal ity (285-295) mOsm/k g Calcium (8.5-10.5) mg/dL Total Bilirubin (0.15-1.2) mg/dL AST (0-32) U/L ALT (0-33) U/L Alkaline Phosphata se (35-105) IU/L Total Protein (6.6-8.7) g/dL Albumin (3.5-5.2) g/dL Globulin (1.3-4.6) g/dL HCG, Qual Negative (Negative) Urine Color Yellow (Yellow) Urine Appearance Clear (CLEAR) Urine pH 5 (5-7) Ur Specific Gravit y 1.005 (1.005-1.030) Urine Protein Neg (Negative) Urine Glucose (UA) Norm (Normal) Urine Ketones 1+ H (Negative) Urine Blood Neg (Negative) Urine Nitrate Negative (Negative) Urine Bilirubin Neg (Negative) Urine Urobilinogen Norm (Negative) mg/dL Ur Leukocyte Marlys ase Negative (Negative) Salicylates (3-10) mg/dL Urine Opiates Scre en Negative (Negative) ng/mL Acetaminophen (10-30) ug/mL Ur Barbiturates Sc reen Negative (Negative) ng/mL Ur Phencyclidine S crn Negative (Negative) ng/mL Ur Amphetamines Sc reen Negative (Negative) ng/mL U Benzodiazepines Scrn Negative (Negative) ng/mL Urine Cocaine Scre en Negative (Negative) ng/mL U Marijuana (THC) Screen Negative (Negative) ng/mL Ethyl Alcohol (0-10) mg/dL 02/14/21 02/14/21 Range/Units 18:10 18:10 WBC 3.6 L (4.0-10.0) 10^3/ uL RBC 4.25 (4.1-5.3) 10^6/u L Hgb 13.1 (11.5-15.3) g/dL Hct 38.9 (37.0-47.0) % MCV 91.5 (81-99) fL MCH 30.8 (28.0-34.0) pg MCHC 33.7 (30.0-36.0) g/dL RDW 14.1 (12.1-15.1) % Plt Count 153 (130-400) 10^3/c mm MPV 9.2 (7.4-10.4) fL Neut % (Auto) 52.9 % Lymph % (Auto) 37.3 % Jasper % (Auto) 8.6 % Eos % (Auto) 0.3 % Baso % (Auto) 0.6 % Neut # (Auto) 1.92 (1.8-7.7) 10^3/u L Lymph # (Auto) 1.4 (0.8-4.8) 10^3/u L Jasper # (Auto) 0.3 (0.2-0.9) 10^3/u L Eos # (Auto) 0.0 (0.0-0.8) 10^3/u L Baso # (Auto) 0.0 (0.0-0.1) 10^3/u L Nucleated RBC % (a uto) 0 % Nucleated RBCs # 0.0 /100WBC Sodium 141 (136-145) mmol/L Potassium 3.6 (3.5-5.1) mmol/L Chloride 100 (98-107) mmol/L Carbon Dioxide 23 (22-29) mmol/L Anion Gap 21.6 H (5-19) BUN 7 (6-20) mg/dL Creatinine 0.5 (0.5-0.9) mg/dL GFR Calculation 131.7 H (90-130) mL/min Glucose 92 (65-115) mg/dL Calculated Osmolal ity 290 (285-295) mOsm/k g Calcium 7.8 L (8.5-10.5) mg/dL Total Bilirubin 1.2 (0.15-1.2) mg/dL AST 41 H (0-32) U/L ALT 32 (0-33) U/L Alkaline Phosphata se 136 H (35-105) IU/L Total Protein 6.3 L (6.6-8.7) g/dL Albumin 3.8 (3.5-5.2) g/dL Globulin 2.5 (1.3-4.6) g/dL HCG, Qual (Negative) Urine Color (Yellow) Urine Appearance (CLEAR) Urine pH (5-7) Ur Specific Gravit y (1.005-1.030) Urine Protein (Negative) Urine Glucose (UA) (Normal) Urine Ketones (Negative) Urine Blood (Negative) Urine Nitrate (Negative) Urine Bilirubin (Negative) Urine Urobilinogen (Negative) mg/dL Ur Leukocyte Marlys ase (Negative) Salicylates < 0.3 L (3-10) mg/dL Urine Opiates Scre en (Negative) ng/mL Acetaminophen < 5.0 L (10-30) ug/mL Ur Barbiturates Sc reen (Negative) ng/mL Ur Phencyclidine S crn (Negative) ng/mL Ur Amphetamines Sc reen (Negative) ng/mL U Benzodiazepines Scrn (Negative) ng/mL Urine Cocaine Scre en (Negative) ng/mL U Marijuana (THC) Screen (Negative) ng/mL Ethyl Alcohol 322 H* (0-10) mg/dL Discharge Plan Discharge Patient Disposition: Left Against Medical Advice Clinical Impression: Alcoholic intoxication Prescriptions: No Action Thera 400 mcg tablet 1 tab PO DAILY 30 Days Qty: 30 RF: 12 ferrous sulfate 325 mg (65 mg iron) tablet 325 mg PO BID Qty: 60 RF: 12 meloxicam 15 mg tablet 15 mg PO BEDTIME 30 Days Qty: 30 RF: 0 ziprasidone HCl 40 mg Capsule 80 mg PO BEDTIME 30 Days Qty: 60 RF: 1 fluoxetine 20 mg Capsule 20 mg PO DAILY 30 Days Qty: 30 RF: 1 thiamine mononitrate (vit B1) 100 mg PO DAILY RF: 0 hydroxyzine pamoate 50 mg capsule 50 mg PO BEDTIME PRN (Reason: anxiety/insomnia) RF: 0 Referrals: Da Myles MD [Primary Care Provider] - Coding Level of Care Code ED [employer] for Hannah F[facility]on
== END 2021-02-14 19:14 | disposition left against medical advice (07) ==
PROVIDERS: Emergency Provider Family Medicine; PCP Family Medicine Adult Medicine
DX: F10.129 Alcohol abuse with intoxication, unspecified (principal); Z53.21 Procedure and treatment not carried out due to patient leaving prior to being seen by health care provider; Y90.8 Blood alcohol level of 240 mg/100 ml or more
CPT/HCPCS: 80053; 80306; 80307; 81003; 81025; 85025; 99283

== ENCOUNTER 2021-02-14 22:11 | Inpatient (IN) | payer MEDICAID, SELFPAY ==
[2021-02-14 22:20] VITALS: BP 138/82; PULSE 90; RESP 18; TEMP 36.7; O2SAT 94; BMI 39.5
[2021-02-14 22:27] LABS: Basophils % 0.6 %; Eosinophils % 0.3 %; Hematocrit 38.4 % (37.0-47.0); Hemoglobin 13.1 g/dL (11.5-15.3); Lymphocytes # 1.7 10^3/uL (0.8-4.8); Lymphocytes % 46.8 %; Mean Corpuscular HGB Conc 34.1 g/dL (30.0-36.0); Mean Corpuscular Hemoglobin 31.2 pg (28.0-34.0); Mean Corpuscular Volume 91.4 fL (81-99); Mean Platelet Volume 9.1 fL (7.4-10.4); Monocytes # 0.4 10^3/uL (0.2-0.9); Monocytes % 10.5 %; Neutrophils # 1.52 10^3/uL (1.8-7.7); Neutrophils % 41.8 %; Nucleated Red Blood Cells % 0 %; Platelet Count 150 10^3/cmm (130-400); Red Cell Distribution Width 14.3 % (12.1-15.1); White Blood Count 3.6 10^3/uL (4.0-10.0)
--- NOTE | 2021-02-14 22:33 | ECG_ITS ---
[facility] Test Date: 2021-02-14 Pat Name: Yeimy Perry Department: Room: Gender: Female Title Curator: : 1970 Requested By: Agapito Garcia Order Number: [id number] Nba MD: Erica Raines M.D. Measurements Intervals [place] Rate: 85 P: 55 VT: 168 QRS: 65 QRSD: 77 T: 52 QT: 424 QTc: 504 Interpretive Statements SINUS RHYTHM SEPTAL MYOCARDIAL INFARCTION , PROBABLY OLD [40+ ms Q WAVE IN V1/V2] Compared to ECG 12/26/2020 12:55:58 Myocardial infarct finding now present Sinus tachycardia no longer present Electronically Signed On 02-15-2021 17:29:46 CDT by Erica Raines M.D. [id number]
--- NOTE | 2021-02-14 22:33 | ED_ITS ---
HPI - Psych General: Chief Complaint: Psychiatric Symptoms Stated Complaint: OD/SI Time Seen by Provider: 02/14/21 22:20 History of Present Illness: HPI Narrative: Patient arrived via ambulance with complaint of overdose to kill herself. Patient said she took 6 Geodon 80 mg and 4 hydroxyzine 50 mg in attempt to kill herself tonight. She drinks 2 pints of vodka she states after she left the ER when she left AMA earlier this evening. Patient states she was kill herself because she quit drinking. complaint: suicidal ideation Onset (ago): minute(s) Duration: getting worse History of same: Yes Relieving factors: none Context: recent alcohol abuse Associated symptoms: Reports no associated symptoms, depression and suicidal ideation If self harm: admits thoughts of self harm, has acted on plan and intentional overdose Review of Systems Const: Denies: fever(s), chills or body aches Eyes: Denies: change in vision or blurry vision ENMT: Denies: throat pain or nasal congestion Card: Denies: chest pain or dyspnea on exertion Resp: Denies: dyspnea, productive cough or non-productive cough GI: Denies: abdominal pain, nausea or vomiting Musc: Denies: extremity pain Skin/Breast: Denies: rash Neuro: Denies: headache(s) Psych: Reports: depression, suicidal ideation and other (Alcohol abuse); Denies: anxiety Marlon/Lymph: Denies: easy bruising PFSH ED PFSH: Medical History Alcohol dependence Has been prescribed antabuse Anxiety Arthritis of right knee Bipolar disorder Chronic post-traumatic stress disorder (PTSD) Depression Depressive disorder Hx of cholecystitis Iron deficiency anemia Obesity (BMI 35.0-39.9 without comorbidity) Recurrent pancreatitis Right elbow tendinitis Suicidal thoughts in the past Surgical History History of Hx of gastric bypass Hx of hernia repair Hx of tubal ligation Hx of unilateral salpingectomy Right Family History Other Diabetes Heart disease Social History Smoking and tobacco status: never smoked Alcohol intake: current History of recent travel: No Current gender identity: Female Female Reproductive History: Date of last menstrual period: 04/09/20 Physical Exam Const: COMMON NORMALS: no acute distress and average body habitus HENMT: COMMON NORMALS: normocephalic HEAD & SCALP: normal to inspection and normocephalic FACE & SINUS: normal facial exam Eye: COMMON NORMALS: conjunctivae normal GENERAL EYE: appearance normal, both eyes and all related structures CONJUNCTIVA: Yes conjunctivae normal Neck/C-Spine: COMMON NORMALS: no JVD Chest: COMMONS NORMALS: normal inspection of the chest Resp: COMMON NORMALS: normal respiratory effort and clear to auscultation bilaterally AUSCULTATION: clear to auscultation bilaterally Cardio: COMMON NORMALS: no JVD, regular rate and regular rhythm RATE: regular rate RHYTHM: regular rhythm GI: COMMON NORMALS: Normal to inspection, nondistended, normoactive bowel sounds present Extremity: COMMON NORMALS: normal to inspection and full ROM Neuro: COMMON NORMALS: moves all extremities and no focal motor deficits OTHER: Speech is slurred but appropriate Psych: COMMON NORMALS: mental status grossly normal APPEARANCE: Yes grossly normal ACTIVITY/MOTOR BEHAVIOR: Yes appropriate eye contact SPEECH: Yes slow THOUGHT CONTENT: Yes Suicidality present Course Vital Signs: Vital signs: Vital Signs Temperature 98.0 F 02/14/21 22:20 Pulse Rate 90 02/14/21 22:20 Respiratory Rate 18 02/14/21 22:20 Blood Pressure 138/82 02/14/21 22:20 Pulse Oximetry 94 02/14/21 22:20 MDM - Psych MDM Narrative: Medical decision making narrative: Poison control contacted. Discussed case with Dr. Sarabia. I spoke with Dr. Kwong agrees accept patient for admission. Poison control has been contacted said her medicine that she took is subtoxic levels. Patient's EtOH is actually came down from previous in the evening. Lab Data: Labs: Lab Results 02/14/21 02/14/21 02/14/21 Range/Units 20:15 20:15 20:15 WBC 3.6 L (4.0-10.0) 10^3/ uL RBC 4.20 (4.1-5.3) 10^6/u L Hgb 13.1 (11.5-15.3) g/dL Hct 38.4 (37.0-47.0) % MCV 91.4 (81-99) fL MCH 31.2 (28.0-34.0) pg MCHC 34.1 (30.0-36.0) g/dL RDW 14.3 (12.1-15.1) % Plt Count 150 (130-400) 10^3/c mm MPV 9.1 (7.4-10.4) fL Neut % (Auto) 41.8 % Lymph % (Auto) 46.8 % [place] % (Auto) 10.5 % Eos % (Auto) 0.3 % Baso % (Auto) 0.6 % Neut # (Auto) 1.52 L (1.8-7.7) 10^3/u L Lymph # (Auto) 1.7 (0.8-4.8) 10^3/u L [place] # (Auto) 0.4 (0.2-0.9) 10^3/u L Eos # (Auto) 0.0 (0.0-0.8) 10^3/u L Baso # (Auto) 0.0 (0.0-0.1) 10^3/u L Nucleated RBC % (a uto) 0 % Nucleated RBCs # 0.0 /100WBC Sodium 140 (136-145) mmol/L Potassium 3.5 (3.5-5.1) mmol/L Chloride 98 (98-107) mmol/L Carbon Dioxide 21 L (22-29) mmol/L Anion Gap 24.5 H (5-19) BUN 5 L (6-20) mg/dL Creatinine 0.5 (0.5-0.9) mg/dL GFR Calculation 131.7 H (90-130) mL/min Glucose 79 (65-115) mg/dL Calculated Osmolal ity 286 (285-295) mOsm/k g Calcium 7.9 L (8.5-10.5) mg/dL Total Bilirubin 1.2 (0.15-1.2) mg/dL AST 40 H (0-32) U/L ALT 31 (0-33) U/L Alkaline Phosphata se 137 H (35-105) IU/L Total Protein 6.6 (6.6-8.7) g/dL Albumin 4.0 (3.5-5.2) g/dL Globulin 2.6 (1.3-4.6) g/dL Salicylates < 0.3 L (3-10) mg/dL Acetaminophen < 5.0 L (10-30) ug/mL Ethyl Alcohol 213 H (0-10) mg/dL Discharge Plan Discharge Prescriptions: No Action Thera 400 mcg tablet 1 tab PO DAILY 30 Days Qty: 30 RF: 12 ferrous sulfate 325 mg (65 mg iron) tablet 325 mg PO BID Qty: 60 RF: 12 meloxicam 15 mg tablet 15 mg PO BEDTIME 30 Days Qty: 30 RF: 0 hydroxyzine pamoate 50 mg capsule 50 mg PO QPM PRN (Reason: anxiety/insomnia) 30 Days Qty: 30 RF: 1 ziprasidone HCl 40 mg Capsule 80 mg PO BEDTIME 30 Days Qty: 60 RF: 1 fluoxetine 20 mg Capsule 20 mg PO DAILY 30 Days Qty: 30 RF: 1 Coding Level of Care Code ED 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
--- NOTE | 2021-02-14 22:33 | PC.NURSE ---
Poison control contacted at this time. Spoke with Abby Pharmacist. Told of medications patient states she took and that she states she drank 2 pints of vodka. Pt states happened at 2100. Abby states both are subtoxic. 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 Geodon will peak in 6-8 hours dizziness, drowsiness or insomnia, N/V, dry mouth. Reccommends supportive care, possibly EKG, probably does not reccommend charcoal due to possible stomach upset from both medications.
[2021-02-14 22:43] LABS: Alanine Aminotransferase 31 U/L (0-33); Alkaline Phosphatase 137 IU/L (35-105); Anion Gap 24.5 (5-19); Aspartate Amino Transferase 40 U/L (0-32); Blood Urea Nitrogen 5 mg/dL (6-20); Calcium 7.9 mg/dL (8.5-10.5); Carbon Dioxide 21 mmol/L (22-29); Chloride 98 mmol/L (98-107); Globulin 2.6 g/dL (1.3-4.6); Glomerular Filtration Rate 131.7 mL/min (90-130); Glucose 79 mg/dL (65-115); Osmolality Calculated 286 mOsm/kg (285-295); Potassium 3.5 mmol/L (3.5-5.1); Sodium 140 mmol/L (136-145); Total Bilirubin 1.2 mg/dL (0.15-1.2); Total Protein 6.6 g/dL (6.6-8.7)
[2021-02-14 22:45] LABS: Acetaminophen < 5.0 ug/mL (10-30); Salicylate < 0.3 mg/dL (3-10)
[2021-02-14 22:56] LABS: Alcohol Level 213 mg/dL (0-10)
[2021-02-14 23:37] LABS: ABG PCO2 34.3 mmHg (35-45); ABG PH Result 7.43 (7.35-7.45); Arterial Blood Gas Hematocrit 38.5 % (37-47); Base Excess ABG -1.2 mmol/L (-2.0-2.0); Blood Gas Allen Test Pos; Blood Gas Sample Site Radial, right; Blood Gas Sample Type Arterial; HCO3 ABG 22.6 mmol/L (22-26); Oxygen Device ROOM AIR; PO2 ABG 77.6 mmHg (80.0-100.0)
[2021-02-15 01:04] LABS: Alcohol Level 127 mg/dL (0-10)
--- NOTE | 2021-02-15 01:09 | PC.NURSE ---
Spoke with Abby from poison control and she suggested that potassium and magnesium levels be kept on the high end of normal due to the effects of the medications. She was told potassium level was 3.5 and suggested a potassium supplement be given and magnesium level monitored as well.
[2021-02-15 01:10] VITALS: BP 123/73; PULSE 82; RESP 16; O2SAT 94
[2021-02-15 01:26] LABS: Magnesium 1.4 mg/dL (1.7-2.3)
[2021-02-15 01:38] VITALS: BP 142/91; PULSE 94; RESP 18; TEMP 36.9; O2SAT 95
[2021-02-15] MEDS: ondansetron 4 MG Tablet PO (04:49)
[2021-02-15] MEDS: LORazepam 2 mg Tablet PO ×2 (05:17→12:11)
--- NOTE | 2021-02-15 05:20 | PC.NURSE ---
pt given ativan 2mg po for CIWA score of 12. will continue to monitor.
[2021-02-15 06:00] VITALS: BP 122/77; PULSE 81; RESP 18; TEMP 37.1; O2SAT 97
--- NOTE | 2021-02-15 06:00 | PC.NURSE ---
pt resting quietly with both eyes closed
--- NOTE | 2021-02-15 09:55 | PC.NURSE ---
refused scheduled Thiamine, folic acid, mtv
--- NOTE | 2021-02-15 12:11 | PC.NURSE ---
Addendum entered by Alicja Arzola LPN 02/15/21 12:47: CIWA SCORE NOW 0--PT ASLEEP IN BED IN ROOM, RESP EVEN ET UNLABORED. NO S/S OF ANXIETY NOTED Original Note: CIWA SCORE 12--PT C/O SHAKES MILD TREMORS NOTED TO BILATERAL UPPER EXTREMITIES. MILDLY ANXIOUS. BP 148/108
[2021-02-15 14:00] VITALS: BP 144/99; PULSE 92; RESP 20; TEMP 37.2; O2SAT 95
--- NOTE | 2021-02-15 16:17 | P.HP_ITS ---
Providers/Chief Complaint Admitting Physician: Antonio Kwong MD Primary Care Provider: Da Myles MD Chief Complaint: OD/SI HPI NPU History of Present Illness Yeimy Perry is a 50 year old female who presented to emergency department with the following report: Chief Complaint: Alcohol Stated Complaint: SI WITH ETOH Time Seen by Provider: 02/14/21 17:43 Source: patient Mode of arrival: EMS Limitations: no limitations History of Present Illness: HPI narrative: Not given a lot of history, states that she drank a lot of alcohol today. She does not tell me the amount but says she drank a lot of vodka. She denies homicidal or suicidal ideation. She is not cooperative. complaint: alcohol intoxication Chronic alcohol use: Yes Previous visits for alcohol intoxication: Yes Recent trauma: No Associated symptoms: Deny abdominal pain, depression, diaphoresis, hematemesis, involuntary movements, melena, nausea, seizure-like activity, suicidal ideation, syncope or vomiting Treatments prior to arrival: none. She is admitted to the neuropsychiatric unit for definitive treatment of those issues. Yeimy presents today well-known to the unit through previous hospitalizations and with near daily visits to the emergency room over the last few days. She endorses that she had a drink at a libertarian at her job a few days ago and has been drinking again. She reports that her outpatient rehab begins on and her goal is to get to that programming. She also reports that she is still employed and does not want to lose her job. She came in reporting feeling suicidal secondary to drinking again daily. She reports that the last time she had significant success with her sobriety/abstinence was when she was on Antabuse and was hopeful in getting that restarted. We reviewed her medications restarted her other medications and discussed the risk benefits and alternatives of different treatment consideration of that she understood and agreed proceed as is documented in this note. We specifically reviewed inpatient rehab and concerns that she is avoiding what continues to be inevitable as she is unable to remain sober longer than very short periods of time recently. An excerpt of her last inpatient note with his investment underwriter is i ncluded for context that she denies any substantive changes in her circumstances. This gloria her fourth admission since this 12/27/2020 inpatient stay. Per her 12/27/2020 [facility] inpatient psychiatric eval: History of Present Illness Yeimy Perry is a 50 year old female who presented to the emergency department with the following report: Chief Complaint: Psychiatric Symptoms Stated Complaint: SI Time Seen by Provider: 12/26/20 12:39 History of Present Illness: HPI Narrative: The patient is a 50-year-old female with past medical history alcoholism and pancreatitis. She says she is also feeling depressed like she wants to hurt herself but has no plan. Last drink of alcohol 12 hours ago and heart rate over 100. She says she began to have upper midline abdominal pain typical of her pancreatitis and has been nauseous and vomiting at home. She says she quit drinking alcohol cold however further questioning likely reveals it is from the nausea and vomiting that are preventing her from drinking. She does smell of alcohol on her breath. Associated symptoms: Deny depression. She was admitted to the neuropsychiatric unit for definitive treatment of those issues. She presents today reporting that she has been drinking again but reports this only been a week. She has been sober for about 3 months she reports. She reports feeling somewhat despondent at the fact that she has nothing to do and is seen by her life has not improve the way she wanted to. She reports that her job and relationships and different things for like there is stagnant at this time. We discussed the risk-benefit and alternatives of rehabbing Prozac she had success on before as well as increasing her Geodon and understood and agreed to proceed as is documented in this note. I have included an excerpt of her 01/26/2020 inpatient psychiatric evaluation for context that she is denied substantive changes. Per her 01/26/2020 [facility] inpatient psychiatric evaluation: History of Present Illness Yeimy Perry is a 49 year old female who presented to the emergency room with an elevated blood alcohol level, intoxicated and endorsing thoughts to kill herself. She was admitted to the neuro psych unit and reported what had occurred was she got the Antabuse that was prescribed at her previous admission and she took religiously for a month and had great success with it. Then [facility] had it on back order and she couldn't find it anywhere else and after a few days off of it there was a libertarian last gathering where someone brought alcohol, and she relapsed and was fearful that it would begin a long drawnout episode and she was fearful of the return of the Warnicke Korsakoff so she came to the hospital. Now that she has slept a little bit she feels like she is going to be able to manage it while she tried to find someplace that had the medication. We attempted to call a couple places while she was here and it was on back order those places well the name brand which might be available in some places it is not covered by Medicaid and is over $700. She denied all lethality or any other issues. She reports that she is living at the same place and has no changes in her psychosocial circumstances or history as compared to her December or October hospitalizations. Diagnoses at Discharge Discharge Diagnosis (1) Wernicke-Korsakoff syndrome (alcoholic): Status: Resolved Reason for Visit Reason for Visit: Reason For Visit: acute etoh intox;suicidal ideation;96 hour hold Brief History: History of Present Illness Yeimy Perry is a 49 year old with recurrent inpatient NPU admissions for alcohol abuse, reported lethality and alcohol intoxication or withdrawal. She presents today c/o drinking continuously since Sunday(today is Sunday) and rudolph ving thoughts about hurting herself with a knife. Said she needed help with suicidal thoughts and her tremors that were starting, hence came to ER. Multiple episodes of nausea and vomiting+. No hematemesis. No kosta or BRPR. C/o chronic epigastric and RUQ pain ongoing since 4 months. Bedsise US performed in ER per verbal report shows liver cirrhosis. She is s/p cholecystectomy. Other notable labs upon admission are anion gap 25 (chronic), mild hyponatremia and hypochloremia, transaminitis AST 94, ALT 76, ALP 222 (chronic), T. bili 2.6, higher than at previous admissions. Tylenol level <5, alcohol level 413. No h/o fever. Abd/pelvis CT from 04/2019 showed normal liver. Unknown hepatitis serology status Providers/Reason for Consult Consulting Physican/Specialty*: Tushar Finley M.D. Psychiatry Reason for Consult*: Severe alcohol dependency with relapse; BAL .480. Patient verbalizes suicidal ideation. Requesting Physcian: Davina Hernandez MD Attending Physician: Domingo Hoffman Primary Care Provider: SOLEDAD Carlson Psych Consult HPI History of Present Illness Yeimy Perry is a 49 year old female with recurrent inpatient NPU admissions for alcohol abuse, reported suicidality and alcohol intoxication or withdrawal. She presents today c/o drinking continuously since Sunday(today is Sunday) and having thoughts about hurting herself with a knife. Said she needed help with suicidal thoughts and her tremors that were starting, hence came to ER. Hospital Course Hospital Course The patient is now launched into emotional lability and impulsiveness. We have called [facility] and the hospital supervisor [employer] and there is no one by her isaac jemThomas's name who is known to have . The patient has subsequently become quite delusional of a paranoid nature and, at one point thought her son had , which is also not true as far as we are able to determine. Yeimy presented to the emergency room with an extremely elevated BAL and was transferred to the ICU. Dr. Finley did a consultation and transferred her to the neuro psych unit. At that time she was diagnosed with Warnicke Korsakoff syndrome with psychotic features and short-term memory difficulties. She was on a 96-hour hold and a 21-day hold was filed. However with the appropriate use of folic acid and thiamine along with her other medications her psychosis resolved and her memory improved dramatically. As with previous hospitalization she endorsed having it up if any and not needing inpatient hospitalization/rehab and endorsed a desire for outpatient drug and alcohol rehabilitation services. During the hospitalization she had routine laboratory studies which were within normal limits except for a few outliers. No heart murmur laboratory disturbances included in the brief history above. Additionally she had a general medical evaluation which was within normal limits revealing the delirium/Warnicke Korsakoff syndrome noted but otherwise no new acute processes. Discharge Summary At the time of discharge there was no lethality, the patient's mood was stabilized, anxiety was well managed, there is no psychosis reported or noted, the patient endorsed a plan to follow-up with the referrals that were provided. The patient endorsed a plan to avoid alcohol and all other drugs of abuse. Evaluation revealed no credible lethality and the patient had obtained the maximum benefit from an inpatient hospitalization so the individual was discharged. Meds NPU Home Medications Medication Instructions Recorded Confirmed Last Taken Type ferrous sulfate 325 mg (65 mg 325 mg PO BID #60 tab 06/30/20 02/15/21 02/13/21 Rx iron) tablet multivitamin with folic acid 400 1 tab PO DAILY 30 Days #30 tab 06/30/20 02/15/21 02/13/21 Rx mcg tablet fluoxetine 20 mg PO DAILY 30 Days #30 cap 01/14/21 02/15/21 02/13/21 Rx meloxicam 15 mg PO BEDTIME 30 Days #30 tab 01/14/21 02/15/21 02/13/21 Rx ziprasidone HCl 80 mg PO BEDTIME 30 Days #60 cap 01/14/21 02/15/21 02/13/21 Rx hydroxyzine pamoate 50 mg PO BEDTIME PRN 02/15/21 02/15/21 Unknown History thiamine mononitrate (vit B1) 100 mg PO DAILY 02/15/21 02/15/21 Unknown History Allergies Allergy/AdvReac Type Severity Reaction Status Date / Time acetaminophen [From [facility]] AdvReac Mild ADR-Itching Verified 02/13/21 21:17 hydrocodone [From [facility]] AdvReac Mild ADR-Itching Verified 02/13/21 21:17 PFSH NPU PFSH: Medical History Alcohol dependence Has been prescribed antabuse Anxiety Arthritis of right knee Bipolar disorder Chronic post-traumatic stress disorder (PTSD) Depression Depressive disorder Hx of cholecystitis Iron deficiency anemia Obesity (BMI 35.0-39.9 without comorbidity) Recurrent pancreatitis Right elbow tendinitis Suicidal thoughts in the past Surgical History History of Hx of gastric bypass Hx of hernia repair Hx of tubal ligation Hx of unilateral salpingectomy Right Family History Other Diabetes Heart disease Social History Smoking and tobacco status: never smoked Alcohol intake: current History of recent travel: No Current gender identity: Female Mental Status Exam MSE Comments: This is an obese white female in hospital scrubs with limited grooming and eye contact. With no abnormal movements except for psychomotor retardation and mild tremulousness. Cooperative with exam and in mild distress. Speech was decreased rate and volume. Mood described as depressed, affect is congruent. Thought process organized. Thought content: Patient endorsed feeling like she would kill herself if she can get her sobriety figured out, but denied homicidal ideation , there were no delusions reported or noted, she denied auditory or visual hallucinations. Attention and concentration were intact and memory appeared reliable but none were formally tested. She is alert and oriented x 3. Insight and judgment are limited and impulse control is impaired. Vitals/I&O/Wt Last Vital Signs Temp 99.0 F 02/15/21 14:00 Pulse 92 02/15/21 14:00 Resp 20 H 02/15/21 14:00 BP 144/99 02/15/21 14:00 Pulse Ox 95 02/15/21 14:00 Weight last 48 hrs Weight 117.934 kg Data NPU : 02/14/21 20:15 02/14/21 20:15 A&P Assessment and plan (1) Abdominal pain: Status: Acute Qualifiers: Abdominal location: unspecified location Qualified Code(s): R10.9 - Unspecified abdominal pain (2) Overdose: Status: Acute Qualifiers: Encounter type: initial encounter Injury intent: intentional self-harm Qualified Code(s): T50.902A - Poisoning by unspecified drugs, medicaments and biological substances, intentional self-harm, initial encounter (3) Alcoholic intoxication: Status: Acute Qualifiers: Complication of substance-induced condition: uncomplicated Qualified Code(s): F10.920 - Alcohol use, unspecified with intoxication, uncomplicated (4) Chronic post-traumatic stress disorder (PTSD): Status: Chronic (5) Alcohol use disorder, severe, dependence: Status: Chronic (6) History of Wernicke's encephalopathy: Status: Acute (7) Right elbow tendinitis: Status: Acute (8) Arthritis of right knee: Status: Acute (9) Initial high blood pressure determined by examination: Status: Acute (10) Obesity (BMI 35.0-39.9 without comorbidity): Status: Acute Additional A&P Information This is a 50-year-old Y female with a long history of alcohol addiction, with episodes of Warnicke's encephalopathy, mental health issues who presents with suicidal thinking against the backdrop of her addiction wanting to get placed on Antabuse again. 1. Continue current medication. We will see if we can get a supply of Antabuse prior to discharge. 2. Continue every 15 minute checks for safety. 3. Encourage individual, group and milieu therapies. 4. Encourage sober living treatment after discharge at the highest level of care to which he is willing to commit. Involuntary Hold Information 96 Hour Hold: 96 Hour Involuntary Admission: Yes 96 Hour Hold Ending Date: 02/18/21 96 Hour Hold Ending Time: 22:47 Attestations NPU Medical Necessity Statement*: Inpatient hospitalization is medically necessary and the clinically appropriate intervention at this time. We will monitor medications and make changes as indicated. Patient will be in the hospital for over two midnights. Likely length of stay 2-5 days. Coding Level of Care Code Acute Workday Manager for Chg Fwd Diagnoses Abdominal pain R10.9 Abdominal location: unspecified location Overdose T50.902A Encounter type: initial encounter Injury intent: intentional self-harm Alcoholic intoxication F10.920 Complication of substance-induced condition: uncomplicated Chronic post-traumatic stress disorder (PTSD) F43.12 Alcohol use disorder, severe, dependence F10.20 History of Wernicke's encephalopathy Z86.69 Right elbow tendinitis M77.8 Arthritis of right knee M17.11 Initial high blood pressure determined by examination I10 Obesity (BMI 35.0-39.9 without comorbidity) E66.9
[2021-02-15] MEDS: ziprasidone hcl 40 mg Capsule 80 MG PO (19:22)
[2021-02-15] MEDS: meloxicam 7.5 mg tablet 15 MG PO (19:22)
[2021-02-15 19:45] VITALS: BP 148/88; PULSE 95; RESP 18; TEMP 37.1; O2SAT 96
[2021-02-16 06:00] VITALS: BP 128/88; PULSE 128; RESP 15; TEMP 36.8; O2SAT 94
[2021-02-16] MEDS: hyDROXYzine 25 mg Capsule 50 MG PO (06:18)
--- NOTE | 2021-02-16 06:28 | PC.NURSE ---
Pt given Vistaril 50mg po for increased anxiety. Pt scored 7 on CIWA scale with complaints of sweaty hand, shaky arms and hearing soft music.
[2021-02-16 07:52] LABS: Amphetamines Screen Urine Negative (Negative); Barbiturates Screen Urine Negative (Negative); Benzodiazepines Screen Urine Positive (Negative); Cocaine Screen Urine Negative (Negative); Opiate Screen Urine Negative (Negative); PCP Screen Urine Negative (Negative); THC Screen Urine Negative (Negative)
[2021-02-16] MEDS: folic acid 1 mg Tablet PO (08:29)
[2021-02-16] MEDS: multivitamin therapeutic Tablet 1 TAB PO (08:30)
[2021-02-16] MEDS: ferrous sulfate EC 325 mg Tablet PO ×2 (08:30→18:07)
[2021-02-16] MEDS: fluoxetine 20 mg Capsule PO (08:30)
[2021-02-16] MEDS: thiamine 100 mg Tablet PO (08:30)
[2021-02-16] MEDS: OLANZapine 5 mg ODT PO (11:03)
--- NOTE | 2021-02-16 13:38 | PC.NURSE ---
administered prn Zyprexa Zydis 5 mg @ 11:03 pt stated that she was having conversations with people in her head. Will continue to monitor Pt is resting in her room, calm and ate her lunch. will continue to monitor
[2021-02-16 14:00] VITALS: BP 141/100; PULSE 88; RESP 18; TEMP 37; O2SAT 96
--- NOTE | 2021-02-16 19:29 | P.PN_ITS ---
Subjective NPU Subjective: Interval history: Yeiym presents today reporting that she is feeling much better. She is very focused on the outpatient note at [facility] and getting there tomorrow. She is also very focused on restarting Antabuse and believing that combination should be sufficient. She feels very strongly that she was to continue her job and not lose feeling there. With a long discussion about how we can move in this direction but if this 1 does not work that she is going to have to except that a controlled inpatient stay in a drug rehab facility will be the only next reasonable move given her current pattern. Mental Status Exam MSE Comments: This is an obese white female in hospital scrubs with adequate grooming and eye contact. With no abnormal movements except for mild psychomotor retardation. Cooperative with exam and in mild distress. Speech was decreased rate and volume. Mood described as better, affect is congruent. Thought process organized. Thought content: Patient denied suicidal or homicidal ideation , there were no delusions reported or noted, she denied auditory or visual hallucinations. Attention and concentration were intact and memory appeared reliable but none were formally tested. She is alert and oriented x 3. Insight and judgment are improving and impulse control is limited but improving.. Vitals/I&O/Wt Last Vital Signs Temp 98.6 F 02/16/21 14:00 Pulse 88 02/16/21 14:00 Resp 18 02/16/21 14:00 BP 141/100 02/16/21 14:00 Pulse Ox 96 02/16/21 14:00 Weight last 48 hrs Weight 117.934 kg Data NPU : 02/14/21 20:15 02/14/21 20:15 A&P Additional A&P Information (1) Abdominal pain: (2) Overdose: (3) Alcoholic intoxication: (4) Chronic post-traumatic stress disorder (PTSD): (5) Alcohol use disorder, severe, dependence: (6) History of Wernicke's encephalopathy: (7) Right elbow tendinitis: (8) Arthritis of right knee: (9) Initial high blood pressure determined by examination: (10) Obesity (BMI 35.0-39.9 without comorbidity): Additional A&P Information This is a 50-year-old Y female with a long history of alcohol addiction, with episodes of Warnicke's encephalopathy, mental health issues who presents with suicidal thinking against the backdrop of her addiction wanting to get placed on Antabuse again. 1. Continue current medication. We will see if we can get a supply of Antabuse prior to discharge. 2. Continue every 15 minute checks for safety. 3. Encourage individual, group and milieu therapies. 4. Encourage sober living treatment after discharge at the highest level of care to which he is willing to commit. Involuntary Hold Information 96 Hour Hold: 96 Hour Involuntary Admission: Yes 96 Hour Hold Ending Date: 02/18/21 96 Hour Hold Ending Time: 22:47 Attestations NPU Medical Necessity Statement*: Inpatient hospitalization is medically necessary and the clinically appropriate intervention at this time. We will monitor medications and make changes as indicated. Likely length of stay 1-3 days. We will connect with [facility] and see how to assist in her starting treatment tomorrow. Coding Level of Care Code Acute Bin Tripper Operator for Hannah [place]
[2021-02-16 20:06] VITALS: BP 126/90; PULSE 86; RESP 16; TEMP 37.4; O2SAT 96
[2021-02-16] MEDS: meloxicam 7.5 mg tablet 15 MG PO (20:06)
[2021-02-16] MEDS: ziprasidone hcl 40 mg Capsule 80 MG PO (20:06)
[2021-02-17 06:00] VITALS: BP 151/94; PULSE 72; RESP 18; TEMP 36.7; O2SAT 95
[2021-02-17] MEDS: fluoxetine 20 mg Capsule PO (09:00)
[2021-02-17] MEDS: thiamine 100 mg Tablet PO (09:00)
[2021-02-17] MEDS: ferrous sulfate EC 325 mg Tablet PO (09:00)
[2021-02-17] MEDS: folic acid 1 mg Tablet PO (09:00)
[2021-02-17] MEDS: multivitamin therapeutic Tablet 1 TAB PO (09:00)
[2021-02-17 10:34] VITALS: BP 151/94; PULSE 72; RESP 18; TEMP 36.7; O2SAT 95
[2021-02-17] MEDS: acetaminophen 325 mg Tablet 650 MG PO (10:34)
--- NOTE | 2021-02-17 11:03 | P.DS_ITS ---
Diagnoses at Discharge Discharge Diagnosis (1) Abdominal pain: Status: Inactive Qualifiers: Abdominal location: unspecified location Qualified Code(s): R10.9 - Unspecified abdominal pain (2) Overdose: Status: Acute Qualifiers: Encounter type: initial encounter Injury intent: intentional self-harm Qualified Code(s): T50.902A - Poisoning by unspecified drugs, medicaments and biological substances, intentional self-harm, initial encounter (3) Alcoholic intoxication: Status: Inactive Qualifiers: Complication of substance-induced condition: uncomplicated Qualified Code(s): F10.920 - Alcohol use, unspecified with intoxication, uncomplicated (4) Chronic post-traumatic stress disorder (PTSD): Status: Chronic (5) Alcohol use disorder, severe, dependence: Status: Chronic (6) History of Wernicke's encephalopathy: (7) Right elbow tendinitis: Status: Acute (8) Arthritis of right knee: Status: Acute (9) Initial high blood pressure determined by examination: Status: Acute (10) Obesity (BMI 35.0-39.9 without comorbidity): Status: Acute Reason for Visit Reason for Visit: OD/SI Brief History: History of Present Illness Yeimy Perry is a 50 year old female who presented to emergency department with the following report: Chief Complaint: Alcohol Stated Complaint: SI WITH ETOH Time Seen by Provider: 02/14/21 17:43 Source: patient Mode of arrival: EMS Limitations: no limitations History of Present Illness: HPI narrative: Not given a lot of history, states that she drank a lot of alcohol today. She does not tell me the amount but says she drank a lot of vodka. She denies homicidal or suicidal ideation. She is not cooperative. MD complaint: alcohol intoxication Chronic alcohol use: Yes Previous visits for alcohol intoxication: Yes Recent trauma: No Associated symptoms: Deny abdominal pain, depression, diaphoresis, hematemesis, involuntary movements, melena, nausea, seizure-like activity, suicidal ideation, syncope or vomiting Treatments prior to arrival: none. She is admitted to the neuropsychiatric unit for definitive treatment of those issues. Yeimy presents today well-known to the unit through previous hospitalizations and with near daily visits to the emergency room over the last few days. She endorses that she had a drink at a libertarian at her job a few days ago and has been drinking again. She reports that her outpatient rehab begins on and her goal is to get to that programming. She also reports that she is still employed and does not want to lose her job. She came in reporting feeling suicidal secondary to drinking again daily. She reports that the last time she had significant success with her sobriety/abstinence was when she was on Antabuse and was hopeful in getting that restarted. We reviewed her medications restarted her other medications and discussed the risk benefits and alternatives of different treatment consideration of that she understood and agreed proceed as is documented in this note. We specifically reviewed inpatient rehab and concerns that she is avoiding what continues to be inevitable as she is unable to remain sober longer than very short periods of time recently. An excerpt of her last inpatient note with his writer editor is included for context that she denies any substantive changes in her circumsta nces. This gloria her fourth admission since this 12/27/2020 inpatient stay. Per her 12/27/2020 [facility] inpatient psychiatric eval: History of Present Illness Yeimy Perry is a 50 year old female who presented to the emergency department with the following report: Chief Complaint: Psychiatric Symptoms Stated Complaint: SI Time Seen by Provider: 12/26/20 12:39 History of Present Illness: HPI Narrative: The patient is a 50-year-old female with past medical history alcoholism and pancreatitis. She says she is also feeling depressed like she wants to hurt herself but has no plan. Last drink of alcohol 12 hours ago and heart rate over 100. She says she began to have upper midline abdominal pain typical of her pancreatitis and has been nauseous and vomiting at home. She says she quit drinking alcohol cold however further questioning likely reveals it is from the nausea and vomiting that are preventing her from drinking. She does smell of alcohol on her breath. Associated symptoms: Deny depression. She was admitted to the neuropsychiatric unit for definitive treatment of those issues. She presents today reporting that she has been drinking again but reports this only been a week. She has been sober for about 3 months she reports. She reports feeling somewhat despondent at the fact that she has nothing to do and is seen by her life has not improve the way she wanted to. She reports that her job and relationships and different things for like there is stagnant at this time. We discussed the risk-benefit and alternatives of rehabbing Prozac she had success on before as well as increasing her Geodon and understood and agreed to proceed as is documented in this note. I have included an excerpt of her 01/26/2020 inpatient psychiatric evaluation for context that she is denied substantive changes. Per her 01/26/2020 [facility] inpatient psychiatric evaluation: History of Present Illness Yeimy Perry is a 49 year old female who presented to the emergency room with an elevated blood alcohol level, intoxicated and endorsing thoughts to kill herself. She was admitted to the neuro psych unit and reported what had occurred was she got the Antabuse that was prescribed at her previous admission and she took religiously for a month and had great success with it. Then [facility] had it on back order and she couldn't find it anywhere else and after a few days off of it there was a libertarian last gathering where someone brought alcohol, and she relapsed and was fearful that it would begin a long drawnout episode and she was fearful of the return of the Warnicke Korsakoff so she came to the hospital. Now that she has slept a little bit she feels like she is going to be able to manage it while she tried to find someplace that had the medication. We attempted to call a couple places while she was here and it was on back order those places well the name brand which might be available in some places it is not covered by Medicaid and is over $700. She denied all lethality or any other issues. She reports that she is living at the same place and has no changes in her psychosocial circumstances or history as compared to her December or October hospitalizations. Diagnoses at Discharge Discharge Diagnosis (1) Wernicke-Korsakoff syndrome (alcoholic): Status: Resolved Reason for Visit Reason for Visit: Reason For Visit: acute etoh intox;suicidal ideation;96 hour hold Brief History: History of Present Illness Yeimy Perry is a 49 year old with recurrent inpatient NPU admissions for alcohol abuse, reported lethality and alcohol intoxication or withdrawal. She presents today c/o drinking continuously since Sunday(today is Sunday) and having thoughts about hurting herself with a knife. Said she needed help with suicidal thoughts and her tremors that were starting, hence came to ER. Multiple episodes of nausea and vomiting+. No hematemesis. No kosta or BRPR. C/o chronic epigastric and RUQ pain ongoing since 4 months. Bedsise US performed in ER per verbal report shows liver cirrhosis. She is s/p cholecystectomy. Other notable labs upon admission are anion gap 25 (chronic), mild hyponatremia and hypochloremia, transaminitis AST 94, ALT 76, ALP 222 (chronic), T. bili 2.6, higher than at previous admissions. Tylenol level <5, alcohol level 413. No h/o fever. Abd/pelvis CT from 04/2019 showed normal liver. Unknown hepatitis serology status Providers/Reason for Consult Consulting Physican/Specialty*: Tushar Finley M.D. Psychiatry Reason for Consult*: Severe alcohol dependency with relapse; BAL .480. Patient verbalizes suicidal ideation. Requesting Physcian: Davina Hernandez MD Attending Physician: Domingo Hoffman Primary Care Provider: SOLEDAD Carlson Psych Consult HPI History of Present Illness Yeimy Perry is a 49 year old female with recurrent inpatient NPU admissions for alcohol abuse, reported suicidality and alcohol intoxication or withdrawal. She presents today c/o drinking continuously since Sunday(today is Sunday) and having thoughts about hurting herself with a knife. Said she needed help with suicidal thoughts and her tremors that were starting, hence came to ER. Hospital Course Hospital Course The patient is now launched into emotional lability and impulsiveness. We have called [facility] and the hospital cloth napping supervisor and there is no one by her fianc?'s name who is known to have . The patient has subsequently become quite delusional of a paranoid nature and, at one point thought her son had , which is also not true as far as we are able to determine. Yeimy presented to the emergency room with an extremely elevated BAL and was transferred to the ICU. Dr. Finley did a consultation and transferred her to the neuro psych unit. At that time she was diagnosed with Warnicke Korsakoff syndrome with psychotic features and short-term memory difficulties. She was on a 96-hour hold and a 21-day hold was filed. However with the appropriate use of folic acid and thiamine along with her other medications her psychosis resolved and her memory improved dramatically. As with previous hospitalization she endorsed having it up if any and not needing inpatient hospitalization/rehab and endorsed a desire for outpatient drug and alcohol rehabilitation services. During the hospitalization she had routine laboratory studies which were within normal limits except for a few outliers. No heart murmur laboratory disturbances included in the brief history above. Additionally she had a general medical evaluation which was within normal limits revealing the delirium/Warnicke Korsakoff syndrome noted but otherwise no new acute processes. Discharge Summary At the time of discharge there was no lethality, the patient's mood was stabilized, anxiety was well managed, there is no psychosis reported or noted, the patient endorsed a plan to follow-up with the referrals that were provided. The patient endorsed a plan to avoid alcohol and all other drugs of abuse. Evaluation revealed no credible lethality and the patient had obtained the maximum benefit from an inpatient hospitalization so the individual was dis charged. Hospital Course Hospital Course She presented to the emergency department with alcohol use active, depression an d endorsing lethality. She admitted to the neuropsychiatric unit for definitive treatment of those issues. She slowly acclimated to the individual, group and milieu therapies provided. She was open to continuing her medication as well as restarting Antabuse with a plan to prevent use again reporting that was effective in the past. We found a pharmacy that was willing to fill that prescription and she had some at home to restart with. She showed modest improvement was able to contract for safety outside the hospital. She during the hospitalization, patient had routine laboratory studies which were within normal limits except for few outliers. Additionally there was a general medical evaluation which was also within normal limits and revealed no new acute processes. Discharge Summary: At the time of discharge, she denied psychosis or lethality. Mood and anxiety were well managed. Patient endorsed a plan to avoid all drugs of abuse and follow-up with the aftercare recommendations of the treatment team. Patient was evaluated and deemed to be absent credible lethality, and had achieved the maximum benefit from an inpatient hospitalization, so was discharged. Involuntary Hold Information 96 Hour Hold: 96 Hour Involuntary Admission: No Mental Status Exam MSE Comments: This is an obese white female in hospital scrubs with adequate grooming and eye contact. With no abnormal movements except for mild psychomotor retardation. Cooperative with exam and in no acute distress. Speech was decreased rate and volume. Mood described as better, affect is congruent. Thought process organized. Thought content: Patient denied suicidal or homicidal ideation , there were no delusions reported or noted, she denied auditory or visual hallucinations. Attention and concentration were intact and memory appeared reliable but none were formally tested. She is alert and oriented x 3. Insight and judgment are improving and impulse control is limited but improving. Discharge Data Vitals: Last Vital Signs Temp 98.1 F 02/17/21 10:34 Pulse 72 02/17/21 10:34 Resp 18 02/17/21 10:34 BP 151/94 02/17/21 10:34 Pulse Ox 95 02/17/21 10:34 Discharge Plan Discharge Patient Disposition: Home Condition: Stable Prescriptions: Continued Thera 400 mcg tablet 1 tab PO DAILY 30 Days Qty: 30 RF: 12 meloxicam 15 mg tablet 15 mg PO BEDTIME 30 Days Qty: 30 RF: 0 ziprasidone HCl 40 mg Capsule 80 mg PO BEDTIME 30 Days Qty: 60 RF: 1 fluoxetine 20 mg Capsule 20 mg PO DAILY 30 Days Qty: 30 RF: 1 hydroxyzine pamoate 50 mg capsule 50 mg PO BEDTIME PRN (Reason: anxiety/insomnia) RF: 0 No Action Vitamin B-1 (mononitrate) 100 mg Tablet 100 mg PO DAILY Qty: 30 RF: 0 Discharge Orders: Discharge Order (Routine); Ordered 02/17/21 Ordered By: Antonio Kwong Referrals: Eric Hartman (Therapy) [facility] ([facility]) [Other] - 02/22/21 9:00 am (You have an in office appointment with Eric Hartman for therapy on Feb 22 2021 at 9AM. This has been changed from being a phone appointment to in office appointment. ) AA Meetings (Alcoholic Anoymous) [Other] (Sunday-Sunday 7 PM Sunday and Sunday 7 PM ) [facility] [Outside] (You have an Outpatient appointment for 02/17/2021 at 11:00 AM with [facility]. You also have an Inpatient Bed available to you at [facility] on 03/07/2021 at 11:00 AM. ) Rosa Win APRN [Nurse Practitioner] - 02/24/21 4:00 pm (This is a phone appointment with Sandhya Win. Please be close to the phone for this appointment. ) Da Myles MD [Primary Care Provider] - 02/28/21 10:30 am Patient Instructions: Opioid Safety Discharge Attestations NPU Time Spent in Discharge Care*: less than 30 min Specific Discharge Activities: Specific discharge activities: educating patient, discussing with manager of case management/social workers/dc planners, documenting/other paperwork and evaluating patient/reviewing data Status at Discharge: Cognitive status at discharge: cognitively intact , Behavioral status at discharge: cooperative , Coding Level of Care Code Acute Chg FW DC note Diagnoses Abdominal pain R10.9 Abdominal location: unspecified location Overdose T50.902A Encounter type: initial encounter Injury intent: intentional self-harm Alcoholic intoxication F10.920 Complication of substance-induced condition: uncomplicated Chronic post-traumatic stress disorder (PTSD) F43.12 Alcohol use disorder, severe, dependence F10.20 History of Wernicke's encephalopathy Z86.69 Right elbow tendinitis M77.8 Arthritis of right knee M17.11 Initial high blood pressure determined by examination I10 Obesity (BMI 35.0-39.9 without comorbidity) E66.9
== END 2021-02-17 10:42 | disposition home or self-care (01) | DRG 918 ==
LOC: ER 23:04 → NP 02-15 06:46
PROVIDERS: Emergency Medicine; Admitting Provider Psychiatry & Neurology Psychiatry; Emergency Provider Nurse Practitioner Family; PCP Family Medicine Adult Medicine; Visit Provider Psychiatry & Neurology Psychiatry
DX: T50.902A Poisoning by unspecified drugs, medicaments and biological substances, intentional self-harm, initial encounter (principal); R45.851 Suicidal ideations; F10.229 Alcohol dependence with intoxication, unspecified; Y90.9 Presence of alcohol in blood, level not specified; F41.9 Anxiety disorder, unspecified; M17.11 Unilateral primary osteoarthritis, right knee; F43.12 Post-traumatic stress disorder, chronic; F32.9 Major depressive disorder, single episode, unspecified; D50.9 Iron deficiency anemia, unspecified; E66.9 Obesity, unspecified; Z68.39 Body mass index [BMI] 39.0-39.9, adult; Z98.84 Bariatric surgery status; R10.9 Unspecified abdominal pain; M77.8 Other enthesopathies, not elsewhere classified; I10 Essential (primary) hypertension
CPT/HCPCS: 36600; 80053; 80306; 80307; 82803; 83735; 85025; 93005; 99285; Q0162

== ENCOUNTER → 2021-02-22 08:51 | Outpatient (BNVA) | payer MEDICAID, SELFPAY | PROVIDERS: Visit Provider Social Worker Clinical | DX: F43.12 Post-traumatic stress disorder, chronic (principal); F10.20 Alcohol dependence, uncomplicated | CPT/HCPCS: 90834 ==

== ENCOUNTER 2021-02-27 18:29 | Inpatient (IN) | payer MEDICAID, SELFPAY ==
[2021-02-27 18:49] VITALS: BP 131/73; PULSE 120; RESP 18; TEMP 36.3; O2SAT 98; BMI 39.5
--- NOTE | 2021-02-27 19:34 | XRR_ITS ---
PROCEDURE INFORMATION: Exam: XR Chest Exam date and time: 02/27/2021 7:50 PM Age: 50 years old Clinical indication: Other: Altered mental status; Prior surgery; Surgery type: Hernia; Additional info: Altered mental status, ETOH TECHNIQUE: Imaging protocol: XR of the chest. Views: 1 view. COMPARISON: CR XR chest 1V portable [id number] 12/26/2020 1:11 PM FINDINGS: Lungs: Unremarkable. No consolidation. Pleural spaces: Unremarkable. No pleural effusion. No pneumothorax. Heart/Mediastinum: Accentuation of the cardiac silhouette probably on the basis of AP technique and lordotic positioning Bones/joints: Degenerative change of thoracic spine. XR/XR chest 1V portable [id number] IMPRESSION: 1. No acute cardiopulmonary process.
--- NOTE | 2021-02-27 19:34 | ECG_ITS ---
[facility] Test Date: 2021-02-27 Pat Name: Yeimy Perry Department: Room: Gender: Female Chiropractic Practice Manager: : 1970 Requested By: Tammy Dunbar Order Number: [id number] Nba MD: Erica Raines M.D. Measurements Intervals [place] Rate: 86 P: 51 ME: 184 QRS: 58 QRSD: 81 T: 51 QT: 382 QTc: 457 Interpretive Statements SINUS RHYTHM Compared to ECG 02/14/2021 23:04:57 Myocardial infarct finding no longer present Electronically Signed On 03-01-2021 9:33:46 CDT by Erica Raines M.D. [email or web address]
--- NOTE | 2021-02-27 20:24 | XRR_ITS ---
PROCEDURE INFORMATION: Exam: XR Left Knee Exam date and time: 02/28/2021 2:50 AM Age: 50 years old Clinical indication: Injury or trauma; Fall; Blunt trauma; Knee; Bilateral TECHNIQUE: Imaging protocol: XR Left knee. Views: 3 views. COMPARISON: No relevant prior studies available. FINDINGS: Bones/joints: Minor degenerative arthritis left knee. No fracture. No significant joint effusion. Soft tissues: Normal. XR/XR knee LT 3V* [id number] IMPRESSION: Minor degenerative arthritis left knee.
--- NOTE | 2021-02-27 20:24 | XRR_ITS ---
PROCEDURE INFORMATION: Exam: XR Right Knee Exam date and time: 02/28/2021 2:50 AM Age: 50 years old Clinical indication: Injury or trauma; Fall; Blunt trauma; Knee; Bilateral TECHNIQUE: Imaging protocol: XR Right knee. Views: 3 views. COMPARISON: No relevant prior studies available. FINDINGS: Bones/joints: Mild degenerative arthritis with hypertrophic formation of tibial spine and medial femorotibial joint. No joint effusion. Soft tissues: Normal. XR/XR knee RT 3V* [id number] IMPRESSION: Mild degenerative arthritis right knee.
--- NOTE | 2021-02-27 20:24 | CTR_ITS ---
PROCEDURE INFORMATION: Exam: CT Head Without Contrast Exam date and time: 02/27/2021 8:27 PM Age: 50 years old Clinical indication: Injury or trauma; Blunt trauma (contusions or hematomas); Consciousness not specified; Patient HX: Unspecified ETOH involved fall ? loc prior; Additional info: Fall, alcohol TECHNIQUE: Imaging protocol: Computed tomography of the head without contrast. Radiation optimization: All CT scans at this facility use at least one of these dose optimization techniques: automated exposure control; mA and/or kV adjustment per patient size (includes targeted exams where dose is matched to clinical indication); or iterative reconstruction. COMPARISON: CT head wo con* [id number] 01/31/2021 9:53 PM RADIATION DOSE METRICS: Total DLP (mGy-cm): 805.03 FINDINGS: Limitations: The study is slightly limited by mild patient motion artifact. Brain: Mild parenchymal volume loss noted. There is decreased attenuation of the periventricular white matter, consistent with mild chronic microangiopathic white matter disease. No parenchymal edema identified. No intracranial hemorrhage noted. Cerebral ventricles: No ventriculomegaly. Bones/joints: Unremarkable. No acute fracture. Paranasal sinuses: Bilateral ethmoid sinuses demonstrate mucoperiosteal thickening. There is a 10 mm retention cyst in the left posterior ethmoid air cells. No air-fluid levels in the paranasal sinuses. Mastoid air cells: Unremarkable as visualized. No mastoid effusion. Soft tissues: Unremarkable. CT/CT head wo con* [id number] IMPRESSION: 1. The study is slightly limited by mild patient motion artifact. 2. No acute intracranial abnormality demonstrated. 3. Paranasal sinus disease, as above. This is new when compared to 01/31/2021. Radiation Dose CTDIVOL = (mGy): DLP = 805.03 (mGy-cm)
--- NOTE | 2021-02-27 20:37 | W.ED.GENADLT ---
HPI - General Adult General: Chief complaint: General Medical Stated complaint: ETOH Time Seen by Provider: 02/27/21 19:35 History of Present Illness: HPI narrative: This is a 50-year-old female who presents here with alcohol intoxication. Per EMS was told by that he wanted her to be admitted for detox. When I questioned patient she is watching TV and gives minimal answers and answers in one-word. When I question her if she wants detox she says yes she says she had was shaking yet she had alcohol just prior to arrival. She says no when we questioned her about suicidal ideation I asked her if she has had previous seizures with her alcohol withdrawal she says yes yet when I spoke to her significant other he was not aware of her ever having seizures and is not seen her have 1 only that she was shaking earlier this afternoon and that she left and somehow bummed alcohol at the store because he says they have no money for any of it. The rest of the HPI is mostly from the boyfriend he says she has fallen a couple of times mostly on her knees but she is able to walk patient also admitted to that they both deny her hitting her head but he says she has not been speaking much today he says she does take trazodone and hydroxyzine and that she occasionally does some pill popping but that there are several left in her bottles and he does not feel that she is acutely overdosed although he says he would not know for certain. Patient denies taking any handful of pills. Patient and boyfriend both have confirmed that she has been in rehab facilities at [facility] but we do not know how recently Review of Systems General: Reports: ROS unobtainable due to medical condition Narrative: Per she has not been sick recently denies any recent fevers chills cough nausea vomiting or diarrhea she does occasionally get gastritis PFSH ED PFSH: Medical History Alcohol dependence Has been prescribed antabuse Anxiety Arthritis of right knee Bipolar disorder Chronic post-traumatic stress disorder (PTSD) Depression Depressive disorder Hx of cholecystitis Iron deficiency anemia Obesity (BMI 35.0-39.9 without comorbidity) Recurrent pancreatitis Right elbow tendinitis Suicidal thoughts in the past Surgical History History of Hx of gastric bypass Hx of hernia repair Hx of tubal ligation Hx of unilateral salpingectomy Right Family History Other Diabetes Heart disease Social History Smoking and tobacco status: never smoked Alcohol intake: current History of recent travel: No Current gender identity: Female Female Reproductive History: Date of last menstrual period: 04/09/20 Physical Exam Narrative: EXAM NARRATIVE: General: She is alert and oriented to place month and year she is a little uncapped she has obviously spilled something on her shirt hair is messy Head: atraumatic HEENT: normal eyes, normal conjunctiva, normal hearing, normal external nose, normal mouth, mucous membranes moist Neck: FROM, trachea midline Chest: normal expansion, no gross deformities Resp: normal speech, no retractions, no accessory muscle use, CTA bilaterally Cardio: regular rate and rhythm and no murmur, no peripheral edema, normal peripheral pulses GI: soft, flat non tender, no guarding normal BS : deferred Musculoskeletal: FROM, no pain or gross deformities full range of motion of all of her extremities no edema no gross pain she easily flexes her knees and her forearms no neck pain or back pain she moves easily without any signs of discomfort Neuro: a/o appropriate for age, no gross motor or sensory deficitys, CN II-XII grossly intact, normal coordination, normal speech Skin: no rashes but multiple stages of bruises on her lower extremities and her arm most of them appear old there is one on her right knee that looks more like a rug burn Psych: cooperative, normal mood and effect Course Vital Signs: Vital signs: Vital Signs Temperature 98.5 F 03/03/21 12:10 Pulse Rate 62 03/03/21 12:10 Respiratory Rate 16 03/03/21 12:10 Blood Pressure 108/71 03/03/21 12:10 Pulse Oximetry 96 03/03/21 12:10 MDM - General Adult MDM Narrative: Medical decision making narrative: Patient was given my bag of fluids as well as oral thiamine multivitamin and folic acid. She is cooperative. It is just uncertain at this time what her needs are she does denies suicidal ideation. I spoke to her boyfriend who wants her admitted for detox I discussed with him that we will need to get her to sober up to see if that is really what she wants that we cannot force her to be admitted or to stay in the past she has left AMA. Patient's boyfriend says they do not have any money to get her home and that she cannot call an Uber because they cannot afford it. I discussed with him that we will watch her in the emergency department and see what her alcohol levels are and once it is under 200 we can reassess and see what her needs and/or desires are if patient is willing to go through rehab we can try to get her set up with resources and we will also reassess her suicidal process she has initially denied it. CT of her head was obtained as precaution as it is unknown if she is following and he feels that her decreased verbal communication is uncertain if it is from alcohol or trauma therefore will check as precaution I also obtain bilateral knee x-rays although seems unlikely that there is any acute fracture she moves them easily Patient was signed over to Dr. Manish Davison at 2300 to continue monitoring in the emergency department and a reevaluation when she is sobered up 22:15 pt now sitting up in bed with poor eye contact and says she wants to kill herselft now when asked specifically she says with a knife. very flat affect Medical Records: Attestation: I reviewed the patient's medical records. Lab Data: Attestation: I reviewed the patient's lab results. Labs: Lab Results 02/27/21 02/27/21 02/27/21 Range/Units 21:46 21:46 22:10 WBC 6.2 (4.0-10.0) 10^3/ uL RBC 4.37 (4.1-5.3) 10^6/u L Hgb 13.5 (11.5-15.3) g/dL Hct 39.7 (37.0-47.0) % MCV 90.8 (81-99) fL MCH 30.9 (28.0-34.0) pg MCHC 34.0 (30.0-36.0) g/dL RDW 13.9 (12.1-15.1) % Plt Count 253 (130-400) 10^3/c mm MPV 9.6 (7.4-10.4) fL Neut % (Auto) 67.5 % Lymph % (Auto) 21.2 % [place] % (Auto) 10.5 % Eos % (Auto) 0.3 % Baso % (Auto) 0.2 % Neut # (Auto) 4.20 (1.8-7.7) 10^3/u L Lymph # (Auto) 1.3 (0.8-4.8) 10^3/u L [place] # (Auto) 0.7 (0.2-0.9) 10^3/u L Eos # (Auto) 0.0 (0.0-0.8) 10^3/u L Baso # (Auto) 0.0 (0.0-0.1) 10^3/u L Nucleated RBC % (a uto) 0 % Nucleated RBCs # 0.0 /100WBC Sodium 138 (136-145) mmol/L Potassium 3.8 (3.5-5.1) mmol/L Chloride 97 L (98-107) mmol/L Carbon Dioxide 20 L (22-29) mmol/L Anion Gap 24.8 H (5-19) BUN 10 (6-20) mg/dL Creatinine 0.6 (0.5-0.9) mg/dL GFR Calculation 106.7 (90-130) mL/min Glucose 94 (65-115) mg/dL Calculated Osmolal ity 285 (285-295) mOsm/k g Calcium 8.2 L (8.5-10.5) mg/dL Total Bilirubin 1.0 (0.15-1.2) mg/dL AST 97 H (0-32) U/L ALT 41 H (0-33) U/L Alkaline Phosphata se 134 H (35-105) IU/L Total Protein 6.4 L (6.6-8.7) g/dL Albumin 3.7 (3.5-5.2) g/dL Globulin 2.7 (1.3-4.6) g/dL Lipase 24 (13-60) U/L HCG, Qual Negative (Negative) Urine Color (Yellow) Urine Appearance (CLEAR) Urine pH (5-7) Ur Specific Gravit y (1.005-1.030) Urine Protein (Negative) Urine Glucose (UA) (Normal) Urine Ketones (Negative) Urine Blood (Negative) Urine Nitrate (Negative) Urine Bilirubin (Negative) Urine Urobilinogen (Negative) mg/dL Ur Leukocyte Marlys ase (Negative) Urine RBC (0-2) /hpf Urine WBC (0-5) /hpf Ur Squamous Epith Cells (0-5) /hpf Amorphous Sediment Urine Bacteria (NONE) /hpf Salicylates < 0.3 L (3-10) mg/dL Urine Opiates Scre en (Negative) ng/mL Acetaminophen < 5.0 L (10-30) ug/mL Ur Barbiturates Sc reen (Negative) ng/mL Ur Phencyclidine S crn (Negative) ng/mL Ur Amphetamines Sc reen (Negative) ng/mL U Benzodiazepines Scrn (Negative) ng/mL Urine Cocaine Scre en (Negative) ng/mL U Marijuana (THC) Screen (Negative) ng/mL Ethyl Alcohol 157 H (0-10) mg/dL 02/27/21 02/27/21 Range/Units 22:10 22:10 WBC (4.0-10.0) 10^3/ uL RBC (4.1-5.3) 10^6/u L Hgb (11.5-15.3) g/dL Hct (37.0-47.0) % MCV (81-99) fL MCH (28.0-34.0) pg MCHC (30.0-36.0) g/dL RDW (12.1-15.1) % Plt Count (130-400) 10^3/c mm MPV (7.4-10.4) fL Neut % (Auto) % Lymph % (Auto) % [place] % (Auto) % Eos % (Auto) % Baso % (Auto) % Neut # (Auto) (1.8-7.7) 10^3/u L Lymph # (Auto) (0.8-4.8) 10^3/u L [place] # (Auto) (0.2-0.9) 10^3/u L Eos # (Auto) (0.0-0.8) 10^3/u L Baso # (Auto) (0.0-0.1) 10^3/u L Nucleated RBC % (a uto) % Nucleated RBCs # /100WBC Sodium (136-145) mmol/L Potassium (3.5-5.1) mmol/L Chloride (98-107) mmol/L Carbon Dioxide (22-29) mmol/L Anion Gap (5-19) BUN (6-20) mg/dL Creatinine (0.5-0.9) mg/dL GFR Calculation (90-130) mL/min Glucose (65-115) mg/dL Calculated Osmolal ity (285-295) mOsm/k g Calcium (8.5-10.5) mg/dL Total Bilirubin (0.15-1.2) mg/dL AST (0-32) U/L ALT (0-33) U/L Alkaline Phosphata se (35-105) IU/L Total Protein (6.6-8.7) g/dL Albumin (3.5-5.2) g/dL Globulin (1.3-4.6) g/dL Lipase (13-60) U/L HCG, Qual (Negative) Urine Color Yellow (Yellow) Urine Appearance Clear (CLEAR) Urine pH 5 (5-7) Ur Specific Gravit y 1.010 (1.005-1.030) Urine Protein Neg (Negative) Urine Glucose (UA) Norm (Normal) Urine Ketones 1+ H (Negative) Urine Blood Trace H (Negative) Urine Nitrate Negative (Negative) Urine Bilirubin Neg (Negative) Urine Urobilinogen 4 H (Negative) mg/dL Ur Leukocyte Marlys ase Negative (Negative) Urine RBC 0-4 H (0-2) /hpf Urine WBC 0-4 H (0-5) /hpf Ur Squamous Epith Cells 5-10 H (0-5) /hpf Amorphous Sediment Not Reportable Urine Bacteria Trace (NONE) /hpf Salicylates (3-10) mg/dL Urine Opiates Scre en Negative (Negative) ng/mL Acetaminophen (10-30) ug/mL Ur Barbiturates Sc reen Negative (Negative) ng/mL Ur Phencyclidine S crn Negative (Negative) ng/mL Ur Amphetamines Sc reen Negative (Negative) ng/mL U Benzodiazepines Scrn Negative (Negative) ng/mL Urine Cocaine Scre en Negative (Negative) ng/mL U Marijuana (THC) Screen Negative (Negative) ng/mL Ethyl Alcohol (0-10) mg/dL Discharge Plan Discharge Patient Disposition: Admitted As Inpatient Admit Provider: Anastacia Senior Clinical Impression: Alcohol use disorder, severe, dependence Condition: Stable Discharge Diet: Usual diet Discharge Activity: Resume usual activity Coding Level of Care Code ED Well Drill Operator Cable Tool for Hannah Fulton
[2021-02-27 21:30] VITALS: BP 143/95; PULSE 84; RESP 18; TEMP 37.1; O2SAT 100
[2021-02-27 22:00] VITALS: BP 151/99; PULSE 88; RESP 18; TEMP 36.7; O2SAT 100
[2021-02-27] MEDS: multivitamin therapeutic Tablet 1 TAB PO (22:11)
[2021-02-27] MEDS: thiamine 100 mg Tablet PO (22:11)
[2021-02-27 22:27] LABS: HCG Qualitative Urine. Negative (Negative)
--- NOTE | 2021-02-27 22:27 | PC.NURSE ---
2144: Dr. Gutierres notified of inability of [address] an IV. Per Dr. Gutierres, ok for pt not to have IV at this time. Lab here to get blood. VSS. Pt denies SI/HI
--- NOTE | 2021-02-27 22:33 | PC.NURSE ---
22:30 Pt states that now she is SI, states she will kill herself with a knife. This RN asked what made pt SI, pt states nothing in particular. VSS. Dr. Gutierres notified of pt statements. All equipment removed from room, pt changed into pt gown as blue scrubs do not fit.
[2021-02-27 22:34] LABS: Basophils % 0.2 %; Eosinophils % 0.3 %; Hematocrit 39.7 % (37.0-47.0); Hemoglobin 13.5 g/dL (11.5-15.3); Lymphocytes # 1.3 10^3/uL (0.8-4.8); Lymphocytes % 21.2 %; Mean Corpuscular Hemoglobin 30.9 pg (28.0-34.0); Mean Corpuscular Volume 90.8 fL (81-99); Mean Platelet Volume 9.6 fL (7.4-10.4); Monocytes # 0.7 10^3/uL (0.2-0.9); Monocytes % 10.5 %; Neutrophils % 67.5 %; Nucleated Red Blood Cells % 0 %; Platelet Count 253 10^3/cmm (130-400); Red Blood Count 4.37 10^6/uL (4.1-5.3); Red Cell Distribution Width 13.9 % (12.1-15.1); White Blood Count 6.2 10^3/uL (4.0-10.0)
[2021-02-27 23:00] VITALS: BP 152/86; PULSE 87; RESP 16; O2SAT 100
[2021-02-27] MEDS: LORazepam 2 mg/mL INJ 1 mL IM (23:10)
[2021-02-27 23:14] LABS: Alanine Aminotransferase 41 U/L (0-33); Albumin Level 3.7 g/dL (3.5-5.2); Alcohol Level 157 mg/dL (0-10); Alkaline Phosphatase 134 IU/L (35-105); Anion Gap 24.8 (5-19); Aspartate Amino Transferase 97 U/L (0-32); Blood Urea Nitrogen 10 mg/dL (6-20); Calcium 8.2 mg/dL (8.5-10.5); Carbon Dioxide 20 mmol/L (22-29); Chloride 97 mmol/L (98-107); Globulin 2.7 g/dL (1.3-4.6); Glomerular Filtration Rate 106.7 mL/min (90-130); Glucose 94 mg/dL (65-115); Lipase 24 U/L (13-60); Osmolality Calculated 285 mOsm/kg (285-295); Potassium 3.8 mmol/L (3.5-5.1); Sodium 138 mmol/L (136-145); Total Protein 6.4 g/dL (6.6-8.7)
[2021-02-27 23:16] LABS: Acetaminophen < 5.0 ug/mL (10-30); Salicylate < 0.3 mg/dL (3-10)
[2021-02-28 00:48] VITALS: BP 152/98; PULSE 84; RESP 18; TEMP 37; O2SAT 98
[2021-02-28] MEDS: ondansetron 4 MG Tablet PO ×3 (02:01→11:32)
--- NOTE | 2021-02-28 02:07 | PC.NURSE ---
Report given to Sharath NIETO. Pt now preparing for transport to NPU
[2021-02-28 02:38] VITALS: BP 144/95; PULSE 90; RESP 18; TEMP 37.1; O2SAT 95
[2021-02-28] MEDS: LORazepam 2 mg Tablet PO ×2 (02:53→11:05)
[2021-02-28 03:07] LABS: Glucose Urine UA Norm (Normal); Ketones Urine 1+ (Negative); Protein Urine Neg (Negative); Urine Appearance Clear (CLEAR); Urine Color Yellow (Yellow); pH Urine 5 (5-7)
[2021-02-28 03:08] LABS: Bilirubin Urine Neg (Negative); Blood Urine Trace (Negative); Leukocyte Esterase Urine Negative (Negative); Nitrate Urine Negative (Negative); Urobilinogen Urine 4 mg/dL (Negative)
[2021-02-28 03:09] LABS: Add Urine Culture? No; Bacteria Urine TRACE /hpf; RBC Urine 0-4 /hpf (0-2); WBC Urine 0-4 /hpf (0-5)
[2021-02-28 03:32] LABS: Amphetamines Screen Urine Negative (Negative); Barbiturates Screen Urine Negative (Negative); Benzodiazepines Screen Urine Negative (Negative); Cocaine Screen Urine Negative (Negative); Opiate Screen Urine Negative (Negative); PCP Screen Urine Negative (Negative); THC Screen Urine Negative (Negative)
--- NOTE | 2021-02-28 03:42 | PC.NURSE ---
pt given zofran for complaint of nausea and vomiting.
[2021-02-28] MEDS: hyDROXYzine 25 mg Capsule 50 MG PO ×3 (05:50→23:47)
[2021-02-28 06:00] VITALS: BP 152/100; PULSE 113; RESP 16; TEMP 37; O2SAT 94
[2021-02-28] MEDS: multivitamin therapeutic Tablet 1 TAB PO (08:05)
[2021-02-28] MEDS: fluoxetine 20 mg Capsule PO (08:05)
[2021-02-28] MEDS: thiamine 100 mg Tablet PO (08:05)
[2021-02-28] MEDS: folic acid 1 mg Tablet PO (08:05)
--- NOTE | 2021-02-28 13:02 | P.HP_ITS ---
Providers/Chief Complaint Admitting Physician: Anastacia Senior DO Chief Complaint: ETOH HPI NPU History of Present Illness Yeimy Perry is a 50 year old female with multiple admissions for alcohol intoxication with reported suicidal ideation in the context of alcohol intoxication presented once again for the third time in the past month under similar circumstances. Patient continues to report withdrawal symptoms, feeling nauseated, occasional emesis, stomach cramping but denies any current suicidal ideation. Patient states that she has an appointment with [facility] but continues to report that she has no intentions of doing inpatient alcohol treatment despite 5 admissions for alcohol intoxication with conditional suicidality in the context of being intoxicated. She continues to report depressive symptoms related to her ongoing life stress and struggle with alcohol will continues to be noncompliant with follow-up including noncompliance with recommended abstinence from alcohol and follow on substance counseling/treatment. Review of Systems General: Reports: 10 or more systems reviewed and unremarkable except in HPI and below Meds NPU Home Medications Medication Instructions Recorded Confirmed Last Taken Type multivitamin with folic acid 400 1 tab PO DAILY 30 Days #30 tab 06/30/20 02/28/21 02/13/21 Rx mcg tablet fluoxetine 20 mg PO DAILY 30 Days #30 cap 01/14/21 02/28/21 02/13/21 Rx meloxicam 15 mg PO BEDTIME 30 Days #30 tab 01/14/21 02/28/21 02/13/21 Rx ziprasidone HCl 80 mg PO BEDTIME 30 Days #60 cap 01/14/21 02/28/21 02/13/21 Rx hydroxyzine pamoate 50 mg PO BEDTIME PRN 02/15/21 02/28/21 Unknown History Allergies Allergy/AdvReac Type Severity Reaction Status Date / Time acetaminophen [From [place]] AdvReac Mild ADR-Itching Verified 02/13/21 21:17 hydrocodone [From [facility]] AdvReac Mild ADR-Itching Verified 02/13/21 21:17 PFSH NPU PFSH: Medical History Alcohol dependence Has been prescribed antabuse Anxiety Arthritis of right knee Bipolar disorder Chronic post-traumatic stress disorder (PTSD) Depression Depressive disorder Hx of cholecystitis Iron deficiency anemia Obesity (BMI 35.0-39.9 without comorbidity) Recurrent pancreatitis Right elbow tendinitis Suicidal thoughts in the past Surgical History History of Hx of gastric bypass Hx of hernia repair Hx of tubal ligation Hx of unilateral salpingectomy Right Family History Other Diabetes Heart disease Social History Smoking and tobacco status: never smoked Alcohol intake: current History of recent travel: No Current gender identity: Female Other Psychiatric History: Other Psychiatric History: No changes from previous psychiatric history at time of admission 02/01/2021 Multiple admissions related to alcohol use and passive suicidal ideation Reports history of overdose attempt around age 43, denies any subsequent attempts or self-harm behavior Longstanding noncompliance with follow-up, substance counseling/treatment Mental Status Exam MSE Comments: Lying in bed, obese, disheveled, unkempt, wearing hospital scrubs, tired appearing, interactive, good eye contact Psychomotor activity is somewhat decreased, no agitation Speech is normal rate and volume, spontaneous, clear articulation, not pressured I feel sick, full range, not labile Alert and oriented to person, place, time, situation Memory and concentration appear to be intact per interview Intellectual functioning appears to be average based on vocabulary, interview Thought process, linear Thought content, no delusions, no hallucinations, does not appear to be attending to any internal stimuli, no suicidal homicidal ideation Insight and judgment appear to be fair Vitals/I&O/Wt Last Vital Signs Temp 98.6 F 02/28/21 06:00 Pulse 113 H 02/28/21 06:00 Resp 16 02/28/21 06:00 BP 152/100 02/28/21 06:00 Pulse Ox 94 02/28/21 06:00 Weight last 48 hrs Weight 117.934 kg Data NPU : 02/27/21 21:46 02/27/21 21:46 A&P Assessment and plan (1) Alcohol use disorder, severe, dependence: Status: Chronic (2) Alcohol dependence with withdrawal: Status: Acute Qualifiers: Complication of substance-induced condition: uncomplicated Qualified Code(s): F10.230 - Alcohol dependence with withdrawal, uncomplicated Additional A&P Information Patient continues to present to the emergency department requesting medically managed withdrawal while intoxicated during which situation she typically reports passive suicidal ideation likely with the intent of admission for medically managed withdrawal despite quickly denying any suicidal ideation after admission. Patient has been informed on multiple occasions that she may no longer get admitted if she continues to present with alcohol intoxication requesting medically managed withdrawal if she continues to refuse and is non compliant with recommendation to abstain or to at least attend or follow-up with outpatient or residential substance counseling/treatment. Patient continues to be noncompliant with post discharge instructions to include follow-up for substance counseling/treatment and likely noncompliant with her m edication. VOLUNTARY ADMIT to inpatient psychiatry [facility] protocol CONTINUE home medication Discussed need for abstaining from the use of alcohol and substances as well as the need for post discharge substance counseling/treatment Coordinate with social media content specialist for post discharge substance counseling/treatment Encourage patient to participate in unit activities to include group sessions, unit milieu Involuntary Hold Information 96 Hour Hold: 96 Hour Involuntary Admission: No Attestations NPU Medical Necessity Statement*: Requires psychiatric hospitalization for medically managed withdrawal from alcohol, coordination for safe discharge Time Spent in Patient Care: Greater than 35 minutes (>than 50% of time spent in counselling and/or direct pt care on unit) . Coding Level of Care Code Acute Associate Professor Of Philosophy for Hannah Fulton Diagnoses Alcohol use disorder, severe, dependence F10.20 Alcohol dependence with withdrawal F10.230 Complication of substance-induced condition: uncomplicated
[2021-02-28 13:28] VITALS: BP 108/72; PULSE 68; RESP 17; TEMP 36.8; O2SAT 94
--- NOTE | 2021-02-28 15:51 | PC.NURSE ---
Shift Summary Patient has been sleeping throughout most of the shift. Patient did not attend group sessions today. No issues with staff or other patients.
--- NOTE | 2021-02-28 17:40 | PC.NURSE ---
Addendum entered by Kelin Hollins RN 02/28/21 18:35: Patient resting in bed with eyes closed at this time. Does not appear anxious at this time. Original Note: PRN Vistaril Patient at nurse's station requesting something as she is feeling anxious. 50mg PO Vistaril given. Will monitor for effectiveness.
[2021-02-28 20:05] VITALS: BP 117/73; PULSE 90; RESP 15; TEMP 37.1; O2SAT 97
--- NOTE | 2021-02-28 23:47 | PC.NURSE ---
PT CAME TO DESK STATING I WOKE UP SHAKY AND SWEATY . CIWA SCORE OF 8 OBTAINED. VISTARIL 50MG PO GIVEN. WILL CONTINUE TO MONITOR.
--- NOTE | 2021-03-01 00:09 | PC.NURSE ---
PT IN ROOM RESTING QUIETLY WITH BOTH EYES CLOSED.
[2021-03-01] MEDS: acetaminophen 325 mg Tablet 650 MG PO ×2 (04:34→20:07)
[2021-03-01 06:00] VITALS: BP 133/86; PULSE 77; RESP 16; TEMP 37; O2SAT 97
[2021-03-01] MEDS: fluoxetine 20 mg Capsule PO (09:12)
[2021-03-01] MEDS: multivitamin therapeutic Tablet 1 TAB PO (09:12)
[2021-03-01] MEDS: thiamine 100 mg Tablet PO (09:12)
[2021-03-01] MEDS: folic acid 1 mg Tablet PO (09:12)
--- NOTE | 2021-03-01 13:35 | PM.NPN ---
Subjective NPU Subjective: Interval history: Patient is much more engaged today and interested in talking about outpatient substance rehab for her alcohol use Reports occasional withdrawal symptoms, continues to have poor appetite stating that she did not eat lunch and only a little bit of her breakfast Denies any nausea, reported that she has some difficulty with sleep Patient continues to be preoccupied with concerns about her finances if she is unable to work secondary to doing a residential program Patient continues to communicate little insight into her overall health as it relates to her ongoing alcohol use Mental Status Exam MSE Comments: Sitting up on her bed, appropriately groomed and dressed wearing hospital scrubs, calm, cooperative, interactive, good eye contact Psychomotor activity is somewhat decreased, no agitation Speech is normal rate and volume, spontaneous, clear articulation, not pressured I feel a little better, full range, not labile Alert and oriented to person, place, time, situation Memory and concentration appear to be intact per interview Thought process, linear Thought content, no delusions, no hallucinations, does not appear to be attending to any internal stimuli, no suicidal homicidal ideation Insight and judgment appear to be fair Vitals/I&O/Wt Last Vital Signs Temp 98.6 F 03/01/21 06:00 Pulse 77 03/01/21 06:00 Resp 16 03/01/21 06:00 BP 133/86 03/01/21 06:00 Pulse Ox 97 03/01/21 06:00 Weight last 48 hrs Weight 117.934 kg Data NPU : 02/27/21 21:46 02/27/21 21:46 A&P Assessment and plan (1) Alcohol dependence with withdrawal: Status: Acute Qualifiers: Complication of substance-induced condition: uncomplicated Qualified Code(s): F10.230 - Alcohol dependence with withdrawal, uncomplicated (2) History of Wernicke's encephalopathy: Status: Acute Additional A&P Information Ongoing lack of insight into harm created by ongoing alcohol use and presenting with suicidal ideation in the context of alcohol intoxication as well as history of neurological deficit secondary to alcohol use. CONTINUE CIWA Continue coordination with social media editor for follow on substance treatment Involuntary Hold Information 96 Hour Hold: 96 Hour Involuntary Admission: No Attestations NPU Medical Necessity Statement*: Continues to require psychiatric hospitalization for medically managed withdrawal, coordination for safe discharge Coding Level of Care Code Acute Circuit Court Clerk for Hannah Fulton Diagnoses Alcohol dependence with withdrawal F10.230 Complication of substance-induced condition: uncomplicated History of Wernicke's encephalopathy Z86.69
[2021-03-01 14:00] VITALS: BP 150/94; PULSE 77; RESP 20; TEMP 37; O2SAT 95
--- NOTE | 2021-03-01 19:25 | PC.NURSE ---
PT COMPLAINING OF ROOM BEING TOO COLD. HEATER IN 124 CHECKED AND IS WORKING, PT MOVED TO [facility] AT THIS TIME.
[2021-03-01 19:26] VITALS: BP 136/94; PULSE 92; RESP 16; TEMP 37.2; O2SAT 99
[2021-03-01] MEDS: ondansetron 4 MG Tablet PO (20:07)
[2021-03-01] MEDS: hyDROXYzine 25 mg Capsule 50 MG PO (20:07)
[2021-03-01] MEDS: trazodone 50 mg Tablet PO (21:14)
--- NOTE | 2021-03-01 22:27 | PC.NURSE ---
PM Assessment CIWA 5, BP 136/94, Pt reports mild Headache, requested tylenol, pain rated 4, on 1-10 pain scale. Med nurse notified. Pt reports feeling mildly anxious, depressed, and having hallucinations earlier in the day. Denies AH/VH at this time. Pt reports mild sensitivity to light/sound, mildly nauseated- waves-intermittent, requesting Zofran, Med nurse notified of pt medication needs. Will continue to observe.
--- NOTE | 2021-03-02 01:20 | PC.NURSE ---
AT 2006 LAST ANA, PT WAS GIVEN VISTARIL 50MG FOR C/O ANXIETY, TYLENOL 650MG FOR C/O HEADACHE, AND ZOFRAN FOR COMPLAINT OF NAUSEA. AT 2114, PT REQUESTED SLEEP AIDE, TRAZODONE 50MG GIVEN. AT 2199, PT NOTED TO BE RESTING QUIETLY WITH BOTH EYES CLOSED.
[2021-03-02] MEDS: hyDROXYzine 25 mg Capsule 50 MG PO ×2 (02:43→20:26)
--- NOTE | 2021-03-02 04:29 | PC.NURSE ---
PT REQUESTED MED TO HELP ME SHUT MY THOUGHTS UP. I HAVEN'T SLEPT ALL NIGHT VISTARIL 50MG PO GIVEN.
[2021-03-02 06:00] VITALS: BP 108/72; PULSE 71; RESP 16; TEMP 36.7; O2SAT 98
[2021-03-02] MEDS: folic acid 1 mg Tablet PO (07:50)
[2021-03-02] MEDS: fluoxetine 20 mg Capsule PO (07:50)
[2021-03-02] MEDS: multivitamin therapeutic Tablet 1 TAB PO (07:50)
[2021-03-02] MEDS: thiamine 100 mg Tablet PO (07:50)
--- NOTE | 2021-03-02 13:38 | PM.NPN ---
Subjective NPU Subjective: Interval history: Patient reports feeling much better today, states that she has occasional cramping but otherwise reports significant improvement Denies any interval depressive symptoms, denies any suicidal ideation Communicates understanding of the need to abstain from use of alcohol Reports being compliant with her medication, denies any medication side effects Mental Status Exam MSE Comments: Sitting up on her bed, appropriately groomed and dressed wearing hospital scrubs, obese, calm, cooperative, good eye contact Psychomotor activity is somewhat decreased, no agitation Speech is normal rate and volume, spontaneous, clear articulation, not pressured I feel better, full range, not labile Alert and oriented to person, place, time, situation Memory and concentration appear to be intact per interview Thought process, linear, no flight of ideas Thought content, no delusions, no hallucinations, no suicidal homicidal ideation Insight and judgment appear to be fair Vitals/I&O/Wt Last Vital Signs Temp 98.1 F 03/02/21 06:00 Pulse 71 03/02/21 06:00 Resp 16 03/02/21 06:00 BP 108/72 03/02/21 06:00 Pulse Ox 98 03/02/21 06:00 Data NPU : 02/27/21 21:46 02/27/21 21:46 A&P Assessment and plan (1) Alcohol dependence with withdrawal: Status: Acute Qualifiers: Complication of substance-induced condition: uncomplicated Qualified Code(s): F10.230 - Alcohol dependence with withdrawal, uncomplicated Additional A&P Information Reports improvement in withdrawal symptoms, denies any interval depressive symptoms, denies any interval suicidal ideation CONTINUE current medication, contnue to monitor Continue coordination with social sciences lecturer for post discharge substance counseling/treatment Involuntary Hold Information 96 Hour Hold: 96 Hour Involuntary Admission: No Attestations NPU Medical Necessity Statement*: Continues to require psychiatric hospitalization for stabilization, coordination for safe discharge Coding Level of Care Code Acute [facility] Associate for Hannah Fulton Diagnoses Alcohol dependence with withdrawal F10.230 Complication of substance-induced condition: uncomplicated
[2021-03-02 14:00] VITALS: BP 131/91; PULSE 65; RESP 18; TEMP 37.2; O2SAT 99
[2021-03-02] MEDS: trazodone 50 mg Tablet PO (20:26)
--- NOTE | 2021-03-02 20:40 | PC.NURSE ---
The patient requested Vistaril and Trazodone to treat anxiety and insomnia.
[2021-03-02 21:22] VITALS: BP 136/89; PULSE 66; RESP 16; TEMP 37.3; O2SAT 98
--- NOTE | 2021-03-02 22:26 | PC.NURSE ---
PM Assessment CIWA 1, reported feeling anxious, Pt reports feeling mildly anxious, depressed, and having hallucinations earlier in the day. Denies AH/VH at this time. Pt reports mild sensitivity to light/sound, mildly nauseated, Med nurse notified of pt medication needs. Med nurse gave Visteril, Will continue to observe.
--- NOTE | 2021-03-02 22:55 | PC.NURSE ---
In bed sleeping.
[2021-03-03 06:00] VITALS: BP 108/71; PULSE 62; RESP 16; TEMP 36.9; O2SAT 96
[2021-03-03] MEDS: thiamine 100 mg Tablet PO (08:42)
[2021-03-03] MEDS: multivitamin therapeutic Tablet 1 TAB PO (08:42)
[2021-03-03] MEDS: fluoxetine 20 mg Capsule PO (08:43)
[2021-03-03] MEDS: folic acid 1 mg Tablet PO (08:43)
--- NOTE | 2021-03-03 12:06 | PM.NDC ---
Diagnoses at Discharge Discharge Diagnosis (1) Alcohol dependence with withdrawal: Status: Acute Qualifiers: Complication of substance-induced condition: uncomplicated Qualified Code(s): F10.230 - Alcohol dependence with withdrawal, uncomplicated Reason for Visit Reason for Visit: ETOH Hospital Course Hospital Course 50 year old female with multiple admissions for alcohol intoxication with reported suicidal ideation in the context of alcohol intoxication presented once again for the third time in the past month under similar circumstances. Patient continued to report withdrawal symptoms, feeling nauseated, occasional emesis, stomach cramping but denied any current suicidal ideation at the time of initial evaluation which is usual for the patient given that she has presented on a monthly basis for the past 5 months intoxicated with suicidal ideation. Patient was placed on 96-hour hold secondary to concerns for devolving ability to provide for self-care given the frequency and escalation of alcohol use leading to significant impairment and suicidal ideation with concerns for impulsive, unexpected behavior. Per usual, patient completed to do outpatient follow-up which she had not complied with on the last 4 admissions. Patient subsequently agreed to inpatient alcohol and substance treatment. She was not endorsing any suicidal ideation or psychiatric symptoms at the time of discharge and did not appear to pose an imminent threat of harm to self or others. Low to moderate risk of harm given no current suicidal ideation and no current endorsement of psychiatric symptoms although patient continues to be at an elevated risk if she continues to be noncompliant with post discharge follow-up and post discharge substance counseling/treatment and continues to relapse using alcohol leading to unexpected, impulsive behavior. Risk mitigation included psychiatric hospitalization, medically managed withdrawal, coordination for safe discharge to include coordinating for a residential bed at an alcohol counseling/treatment facility as well as recommendation to abstain from the use of substances and alcohol and need for compliance with her medication, medication management and post discharge treatment. Patient was able to communicate her understanding of the need to abstain from the use of alcohol and substances as well as the need for compliance with post discharge substance counseling/treatment in order to develop better coping strategies in the context of ongoing life stress to further mitigate her risk of harm to self and others. Involuntary Hold Information 96 Hour Hold: 96 Hour Involuntary Admission: No Mental Status Exam MSE Comments: Lying in bed initially but subsequently sitting up for interview, appropriately groomed and dressed wearing hospital scrubs, calm, cooperative, good eye contact Psychomotor activity is neither increased nor decreased, no agitation Speech is normal rate and volume, spontaneous, clear articulation, not pressured I feel okay, full range, not labile Alert and oriented to person, place, time, situation Memory and concentration appear to be intact per interview Thought process, linear, no flight of ideas Thought content, no delusions, no hallucinations, no suicidal homicidal ideation Insight and judgment appear to be fair Discharge Data Data Completed and Pending: Completed Studies During Hospitalization Category Date Time Status CT head wo con* 7 0450 Stat Cat Scan 02/27/21 20:24 Completed XR chest 1V miladys ble [id number] Stat Exams 02/27/21 19:34 Completed XR knee LT 3V* 73 562 Stat Exams 02/27/21 20:24 Completed XR knee RT 3V* 73 562 Stat Exams 02/27/21 20:24 Completed Vitals: Last Vital Signs Temp 98.5 F 03/03/21 06:00 Pulse 62 03/03/21 06:00 Resp 16 03/03/21 06:00 BP 108/71 03/03/21 06:00 Pulse Ox 96 03/03/21 06:00 Discharge Plan Discharge Patient Disposition: Home Condition: Stable Prescriptions: New Vitamin B-1 (mononitrate) 100 mg Tablet 100 mg PO DAILY Qty: 30 RF: 0 Continued Thera 400 mcg tablet 1 tab PO DAILY 30 Days Qty: 30 RF: 12 meloxicam 15 mg tablet 15 mg PO BEDTIME 30 Days Qty: 30 RF: 0 ziprasidone HCl 40 mg Capsule 80 mg PO BEDTIME 30 Days Qty: 60 RF: 1 fluoxetine 20 mg Capsule 20 mg PO DAILY 30 Days Qty: 30 RF: 1 hydroxyzine pamoate 50 mg capsule 50 mg PO BEDTIME PRN (Reason: anxiety/insomnia) RF: 0 Discharge Orders: Discharge Order (Routine); Ordered 03/03/21 Ordered By: Anastacia Senior Referrals: [facility] [Outside] - 03/03/21 2:00 pm (Inpatient Rehab) Eric Hartman LCSW [Referring] - 03/18/21 9:00 am Rosa Win APRN [Nurse Practitioner] - Discharge Diet: Usual diet Discharge Activity: Resume usual activity Patient Instructions: Thiamine (Vitamin B-1) (By mouth), Anxiety (DC), Opioid Safety Discharge Attestations NPU Time Spent in Discharge Care*: greater than 30 min Status at Discharge: Cognitive status at discharge: cognitively intact, Behavioral status at discharge: cooperative, Functional status at discharge: independent ambulation Overall status at discharge: patient is back to baseline Coding Level of Care Code Acute Chg FW DC note Diagnoses Alcohol dependence with withdrawal F10.230 Complication of substance-induced condition: uncomplicated
[2021-03-03 12:10] VITALS: BP 108/71; PULSE 62; RESP 16; TEMP 36.9; O2SAT 96
== END 2021-03-03 13:06 | disposition home or self-care (01) | DRG 897 ==
LOC: ER 20:57 → NP 02-28 02:14
PROVIDERS: Emergency Medicine; Admitting Provider Psychiatry & Neurology Psychiatry; Emergency Provider Emergency Medicine; Visit Provider Psychiatry & Neurology Psychiatry
DX: F10.229 Alcohol dependence with intoxication, unspecified (principal); R45.851 Suicidal ideations; F10.239 Alcohol dependence with withdrawal, unspecified; Y90.9 Presence of alcohol in blood, level not specified; Z91.19 Patient's noncompliance with other medical treatment and regimen; F41.9 Anxiety disorder, unspecified; M17.11 Unilateral primary osteoarthritis, right knee; F43.12 Post-traumatic stress disorder, chronic; F32.9 Major depressive disorder, single episode, unspecified; E66.9 Obesity, unspecified; Z68.39 Body mass index [BMI] 39.0-39.9, adult
CPT/HCPCS: 36415; 70450; 71045; 73560; 73562; 80053; 80306; 80307; 81001; 81025; 83690; 85025; 93005; 96360; 96372; 99285; G0378; J2060; Q0162

== ENCOUNTER → 2021-03-14 13:34 | Outpatient (BNVA) | payer MEDICAID, SELFPAY | PROVIDERS: PCP Family Medicine Adult Medicine; Visit Provider Nurse Practitioner Psychiatric/Mental Health | DX: F43.12 Post-traumatic stress disorder, chronic (principal); F10.20 Alcohol dependence, uncomplicated; F31.9 Bipolar disorder, unspecified | CPT/HCPCS: 99213 ==

== ENCOUNTER → 2021-03-18 08:53 | Outpatient (BNVA) | payer MEDICAID, SELFPAY | PROVIDERS: Visit Provider Social Worker Clinical | DX: F32.9 Major depressive disorder, single episode, unspecified (principal); F43.12 Post-traumatic stress disorder, chronic; F10.20 Alcohol dependence, uncomplicated | CPT/HCPCS: 90834 ==

== ENCOUNTER 2021-05-28 21:22 | Emergency (ER) | payer MEDICAID, SELFPAY ==
[2021-05-28 21:24] VITALS: BP 142/87; PULSE 113; RESP 20; TEMP 37; O2SAT 98; BMI 39.5
--- NOTE | 2021-05-28 21:35 | ECG_ITS ---
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 Measurements Intervals Stuart Rate: 109 P: 67 RI: 135 QRS: 67 QRSD: 89 T: 43 QT: 376 QTc: 506 Interpretive Statements SINUS TACHYCARDIA Compared to ECG 02/27/2021 20:28:02 Sinus rhythm no longer present Electronically Signed On 05-29-2021 12:14:03 CDT by Alex Thakkar M.D. [id number]
--- NOTE | 2021-05-28 21:35 | XRR_ITS ---
PROCEDURE INFORMATION: Exam: XR Chest Exam date and time: 05/28/2021 9:35 PM Age: 51 years old Clinical indication: Pain; Chest pressure; Additional info: Chest pain TECHNIQUE: Imaging protocol: XR of the chest. Views: 1 view. COMPARISON: CR XR chest 1V portable [id number] 02/27/2021 7:40 PM FINDINGS: Lungs: There is mild prominence of the pulmonary vasculature and some increased interstitial opacities within the mid lower hemithoraces, findings that could represent mild pulmonary edema. Pleural spaces: Unremarkable. No pleural effusion. No pneumothorax. Heart/Mediastinum: Unremarkable. No cardiomegaly. Bones/joints: Unremarkable. XR/XR chest 1V portable [id number] IMPRESSION: Mild prominence of the pulmonary vasculature and subtle increased interstitial opacities in the lower hemithoraces, findings that may represent mild pulmonary edema.
[2021-05-28 21:38] VITALS: BP 142/87; PULSE 112; RESP 15; O2SAT 99
[2021-05-28 21:55] LABS: Basophils % 0.3 %; Hemoglobin 12.7 g/dL (11.5-15.3); Lymphocytes # 1.6 10^3/uL (0.8-4.8); Lymphocytes % 22.2 %; Mean Corpuscular HGB Conc 35.3 g/dL (30.0-36.0); Mean Corpuscular Hemoglobin 30.6 pg (28.0-34.0); Mean Corpuscular Volume 86.7 fL (81-99); Monocytes # 0.7 10^3/uL (0.2-0.9); Monocytes % 9.5 %; Neutrophils # 4.95 10^3/uL (1.8-7.7); Neutrophils % 67.6 %; Nucleated Red Blood Cells % 0 %; Platelet Count 145 10^3/cmm (130-400); Red Blood Count 4.15 10^6/uL (4.1-5.3); Red Cell Distribution Width 12.6 % (12.1-15.1); White Blood Count 7.3 10^3/uL (4.0-10.0)
--- NOTE | 2021-05-28 21:57 | PC.NURSE ---
Patient reported she received 4 chewable aspirin in the ambulance on the way to the hospital. Dr. Garduno notified, and gave orders for patient not to receive 4 chewable aspirin at this time.
[2021-05-28 22:00] VITALS: BP 118/85; PULSE 114; RESP 27; O2SAT 99
--- NOTE | 2021-05-28 22:02 | ED_ITS ---
Documented by User: Josiah Garduno MD 05/28/21 23:03 HPI - Chest Pain General: Chief Complaint: Chest Pain Stated Complaint: ABDOMINAL PAIN/ CHEST PAIN/ WEAKNESS Time Seen by Provider: 05/28/21 21:26 History of Present Illness: HPI narrative: Patient is a 51-year-old female with a past medical history of of behavioral disorders alcohol use disorder. She is here with various complaints. She states that she has been drinking 3 to 4 pints a day for the last 7 days. At some point possibly yesterday she fell off of her toilet struck her head on a wall. She does not think that she lost consciousness. States her last drink was at 930 this morning and that after 3:00 this morning she has had slurred speech. States she has been drinking heavily for last 7 or 8 years has had a history of ICU admission for withdrawals. Is very concerned about vitamin deficiency. She does state that she wants to quit drinking She also complains of abdominal pain and chest pain. States the pain in her chest is just over her left breast. Does not radiate is waxing and waning is not accompanied by any nausea or diaphoresis. Also has some mild epigastric abdominal pain. Associated symptoms: Reports abdominal pain; Deny dyspnea, fever(s), nausea or vomiting Review of Systems Const: Denies: fever(s), chills or change in weight Eyes: Denies: change in vision Card: Reports: chest pain Resp: Denies: dyspnea GI: Reports: abdominal pain; Denies: nausea, vomiting or coffee ground emesis Musc: Denies: neck pain Skin/Breast: Denies: rash or skin tenderness Neuro: Reports: difficulty walking and Slurred speech present; Denies: headache(s), numbness in extremities or weakness in extremities Psych: Denies: anxiety or depression PFSH ED PFSH: Medical History Alcohol dependence Has been prescribed antabuse Anxiety Arthritis of right knee Bipolar disorder Chronic post-traumatic stress disorder (PTSD) Depression Depressive disorder History of anemia History of Wernicke's encephalopathy Hx of cholecystitis Iron deficiency anemia Obesity (BMI 35.0-39.9 without comorbidity) Psychiatric care Recurrent pancreatitis Right elbow tendinitis Suicidal thoughts in the past Surgical History History of Hx of gastric bypass Hx of hernia repair Hx of tubal ligation Hx of unilateral salpingectomy Right Family History Other Diabetes Heart disease Social History Smoking and tobacco status: never smoked Alcohol intake: current History of recent travel: No Current gender identity: Female Physical Exam Const: COMMON NORMALS: no acute distress, patient oriented x3, alert and well nourished EXAM LIMITATIONS: no altered mental status HENMT: COMMON NORMALS: normocephalic and atraumatic HEAD & SCALP: normocephalic and atraumatic Eye: COMMON NORMALS: Equal, round and reactive pupils present and EOMs intact bilaterally PUPIL: Yes Equal, round and reactive pupils present Neck/C-Spine: COMMON NORMALS: full ROM CERVICAL SPINE: No cervical ROM normal, No pain with cervical ROM and No Cervical spine tenderness Resp: COMMON NORMALS: normal respiratory effort, No retractions and No use of accessory muscles Cardio: COMMON NORMALS: regular rate, regular rhythm and No murmurs present (Cardio) RATE: regular rate RHYTHM: regular rhythm Extremity: COMMON NORMALS: normal to inspection and full ROM NARRATIVE EXTREMITY EXAM: No tenderness palpation of the C-spine T-spine or L-spine. No tenderness to palpation all long bones anterior chest and clavicles GENERAL: Yes normal exam except as noted Neuro: COMMON NORMALS: patient oriented x3 SENSORIUM/ORIENTATION: Yes alert Psych: COMMON NORMALS: mental status grossly normal, Normal thought process present and cooperative THOUGHT PROCESS: Normal thought process present Skin: COMMON NORMALS: no rashes or lesions noted GENERAL SKIN EXAM: no rashes or lesions noted Course ED course: Patient has varied complaints but the most concerning is her wishing to stop drinking after a long alcohol history with a history of being admitted to the ICU for withdrawals. She is already tachycardic is not diaphoretic blood pressure is normal so I do have some concern that she may be already in withdrawal. With her history of her fall and concern about slurred speech we will going to do a CT of the head and C-spine. Speech slurring is probably due more to alcoholism but do not want a rule out any intracranial injury given her fall and the fact that she cannot be trusted to give an accurate history. With her chest pain will get troponins EKG. Other labs. Abdominal pain she does not have any tenderness on exam no rebound or guarding. Feel this may be from the alcohol gastritis we will give her some Protonix as well. Will give thiamine and IV fluids as well Patient has some hyponatremia and a mildly widened anion gap. I will get a VBG as well as ketones. Possibility of alcoholic ketosis. Troponins and imaging pending Care turned over to night team at 2300 hrs. Vital Signs: Vital signs: Vital Signs Temperature 98.6 F 05/28/21 21:24 Pulse Rate 107 H 05/29/21 01:38 Respiratory Rate 24 H 05/29/21 01:38 Blood Pressure 127/76 05/29/21 01:38 Pulse Oximetry 99 05/29/21 00:00 MDM - Chest Pain Lab Data: Labs: Lab Results 05/28/21 05/28/21 05/28/21 Range/Units 21:45 21:45 21:45 WBC 7.3 (4.0-10.0) 10^3/ uL RBC 4.15 (4.1-5.3) 10^6/u L Hgb 12.7 (11.5-15.3) g/dL Hct 36.0 L (37.0-47.0) % MCV 86.7 (81-99) fL MCH 30.6 (28.0-34.0) pg MCHC 35.3 (30.0-36.0) g/dL RDW 12.6 (12.1-15.1) % Plt Count 145 (130-400) 10^3/c mm MPV 10.0 (7.4-10.4) fL Neut % (Auto) 67.6 % Lymph % (Auto) 22.2 % Ray % (Auto) 9.5 % Eos % (Auto) 0.0 % Baso % (Auto) 0.3 % Neut # (Auto) 4.95 (1.8-7.7) 10^3/u L Lymph # (Auto) 1.6 (0.8-4.8) 10^3/u L Ray # (Auto) 0.7 (0.2-0.9) 10^3/u L Eos # (Auto) 0.0 (0.0-0.8) 10^3/u L Baso # (Auto) 0.0 (0.0-0.1) 10^3/u L Nucleated RBC % (a uto) 0 % Nucleated RBCs # 0.0 /100WBC Specimen Type Lamin Test O2 Delivery Device Events And [employer] Assistant ID Sodium 128 L (136-145) mmol/L Potassium 4.1 (3.5-5.1) mmol/L Chloride 82 L (98-107) mmol/L Carbon Dioxide 26 (22-29) mmol/L Anion Gap 24.1 H (5-19) BUN 6 (6-20) mg/dL Creatinine 0.5 (0.5-0.9) mg/dL GFR Calculation 131.1 H (90-130) mL/min Glucose 103 (65-115) mg/dL Calculated Osmolal ity 264 L (285-295) mOsm/k g Calcium 7.8 L (8.5-10.5) mg/dL Total Bilirubin 2.5 H (0.15-1.2) mg/dL AST 69 H (0-32) U/L ALT 49 H (0-33) U/L Alkaline Phosphata se 109 H (35-105) IU/L Troponin T Baselin e 9 (0-10) ng/L Troponin T 120 Min [place] (0-10) ng/L Delta Troponin T (0-10) ABS# Total Protein 6.2 L (6.6-8.7) g/dL Albumin 4.0 (3.5-5.2) g/dL Globulin 2.2 (1.3-4.6) g/dL Urine Color (Yellow) Urine Appearance (CLEAR) Urine pH (5-7) Ur Specific Gravit y (1.005-1.030) Urine Protein (Negative) Urine Glucose (UA) (Normal) Urine Ketones (Negative) Urine Blood (Negative) Urine Nitrate (Negative) Urine Bilirubin (Negative) Urine Urobilinogen (Negative) mg/dL Ur Leukocyte Marlys ase (Negative) Urine RBC (0-2) /hpf Urine WBC (0-5) /hpf Ur Squamous Epith Cells (0-5) /hpf Amorphous Sediment Urine Bacteria (NONE) /hpf Urine Mucus /hpf Urine HCG, Qual (Negative) Ethyl Alcohol (0-10) mg/dL Serum Ketones (Negative) 05/28/21 05/28/21 05/28/21 Range/Units 21:45 21:45 22:17 WBC (4.0-10.0) 10^3/ uL RBC (4.1-5.3) 10^6/u L Hgb (11.5-15.3) g/dL Hct (37.0-47.0) % MCV (81-99) fL MCH (28.0-34.0) pg MCHC (30.0-36.0) g/dL RDW (12.1-15.1) % Plt Count (130-400) 10^3/c mm MPV (7.4-10.4) fL Neut % (Auto) % Lymph % (Auto) % Ray % (Auto) % Eos % (Auto) % Baso % (Auto) % Neut # (Auto) (1.8-7.7) 10^3/u L Lymph # (Auto) (0.8-4.8) 10^3/u L Ray # (Auto) (0.2-0.9) 10^3/u L Eos # (Auto) (0.0-0.8) 10^3/u L Baso # (Auto) (0.0-0.1) 10^3/u L Nucleated RBC % (a uto) % Nucleated RBCs # /100WBC Specimen Type Lamin Test O2 Delivery Device [employer] Assistant ID Sodium (136-145) mmol/L Potassium (3.5-5.1) mmol/L Chloride (98-107) mmol/L Carbon Dioxide (22-29) mmol/L Anion Gap (5-19) BUN (6-20) mg/dL Creatinine (0.5-0.9) mg/dL GFR Calculation (90-130) mL/min Glucose (65-115) mg/dL Calculated Osmolal ity (285-295) mOsm/k g Calcium (8.5-10.5) mg/dL Total Bilirubin (0.15-1.2) mg/dL AST (0-32) U/L ALT (0-33) U/L Alkaline Phosphata se (35-105) IU/L Troponin T Baselin e (0-10) ng/L Troponin T 120 Min [place] (0-10) ng/L Delta Troponin T (0-10) ABS# Total Protein (6.6-8.7) g/dL Albumin (3.5-5.2) g/dL Globulin (1.3-4.6) g/dL Urine Color (Yellow) Urine Appearance (CLEAR) Urine pH (5-7) Ur Specific Gravit y (1.005-1.030) Urine Protein (Negative) Urine Glucose (UA) (Normal) Urine Ketones (Negative) Urine Blood (Negative) Urine Nitrate (Negative) Urine Bilirubin (Negative) Urine Urobilinogen (Negative) mg/dL Ur Leukocyte Marlys ase (Negative) Urine RBC (0-2) /hpf Urine WBC (0-5) /hpf Ur Squamous Epith Cells (0-5) /hpf Amorphous Sediment Urine Bacteria (NONE) /hpf Urine Mucus /hpf Urine HCG, Qual Negative (Negative) Ethyl Alcohol < 10 (0-10) mg/dL Serum Ketones Negative (Negative) 05/28/21 05/28/21 05/28/21 Range/Units 22:17 23:08 23:54 WBC (4.0-10.0) 10^3/ uL RBC (4.1-5.3) 10^6/u L Hgb (11.5-15.3) g/dL Hct (37.0-47.0) % MCV (81-99) fL MCH (28.0-34.0) pg MCHC (30.0-36.0) g/dL RDW (12.1-15.1) % Plt Count (130-400) 10^3/c mm MPV (7.4-10.4) fL Neut % (Auto) % Lymph % (Auto) % Ray % (Auto) % Eos % (Auto) % Baso % (Auto) % Neut # (Auto) (1.8-7.7) 10^3/u L Lymph # (Auto) (0.8-4.8) 10^3/u L Ray # (Auto) (0.2-0.9) 10^3/u L Eos # (Auto) (0.0-0.8) 10^3/u L Baso # (Auto) (0.0-0.1) 10^3/u L Nucleated RBC % (a uto) % Nucleated RBCs # /100WBC Specimen Type Venous Lamin Test N/a O2 Delivery Device Room air [employer] Assistant ID [email or web address] Sodium (136-145) mmol/L Potassium (3.5-5.1) mmol/L Chloride (98-107) mmol/L Carbon Dioxide (22-29) mmol/L Anion Gap (5-19) BUN (6-20) mg/dL Creatinine (0.5-0.9) mg/dL GFR Calculation (90-130) mL/min Glucose (65-115) mg/dL Calculated Osmolal ity (285-295) mOsm/k g Calcium (8.5-10.5) mg/dL Total Bilirubin (0.15-1.2) mg/dL AST (0-32) U/L ALT (0-33) U/L Alkaline Phosphata se (35-105) IU/L Troponin T Baselin e (0-10) ng/L Troponin T 120 Min [place] 9.70 (0-10) ng/L Delta Troponin T 0.70 (0-10) ABS# Total Protein (6.6-8.7) g/dL Albumin (3.5-5.2) g/dL Globulin (1.3-4.6) g/dL Urine Color Yellow (Yellow) Urine Appearance Clear (CLEAR) Urine pH 7 (5-7) Ur Specific Gravit y 1.005 (1.005-1.030) Urine Protein Neg (Negative) Urine Glucose (UA) Norm (Normal) Urine Ketones 2+ H (Negative) Urine Blood 2+ H (Negative) Urine Nitrate Negative (Negative) Urine Bilirubin Neg (Negative) Urine Urobilinogen 1 H (Negative) mg/dL Ur Leukocyte Marlys ase Negative (Negative) Urine RBC 15-25 H (0-2) /hpf Urine WBC 0-4 H (0-5) /hpf Ur Squamous Epith Cells 15-25 H (0-5) /hpf Amorphous Sediment Not Reportable Urine Bacteria Trace (NONE) /hpf Urine Mucus Trace /hpf Urine HCG, Qual (Negative) Ethyl Alcohol (0-10) mg/dL Serum Ketones (Negative) EKG Data^: EKG 1: EKG interpretation date: 05/28/21 EKG interpretation time: 22:09 Interpretation: Sinus tachycardia of 109. No evidence of ischemia or infarct normal QTC and VT changes. Discharge Plan Discharge Patient Disposition: Home Clinical Impression: Alcohol use disorder, severe, dependence Chest pain Qualifiers: Chest pain type: unspecified Qualified Code(s): R07.9 - Chest pain, unspecified Condition: Stable Prescriptions: New chlordiazepoxide HCl 10 mg capsule 10 mg PO Q6H PRN (Reason: withdrawal symptoms) Qty: 20 RF: 0 No Action Thera 400 mcg tablet 1 tab PO DAILY 30 Days Qty: 30 RF: 12 ferrous sulfate 325 mg (65 mg iron) tablet 325 mg PO BID RF: 0 fluoxetine 20 mg capsule 20 mg PO DAILY 30 Days Qty: 30 RF: 1 ziprasidone HCl 40 mg capsule 80 mg PO .q evening 30 Days Qty: 60 RF: 1 hydroxyzine pamoate 50 mg capsule 50 mg PO BEDTIME PRN (Reason: anxiety/insomnia) Qty: 30 RF: 1 ziprasidone HCl 80 mg capsule 80 mg PO .q evening Qty: 30 RF: 0 meloxicam 15 mg tablet 15 mg PO BEDTIME 30 Days Qty: 30 RF: 0 Discharge Orders: Discharge ED (Routine); Ordered 05/29/21 Ordered By: Jerri Sarabia Referrals: Da Myles MD [Primary Care Provider] - Discharge Diet: Advance as tolerated Discharge Activity: Resume usual activity Patient Instructions: Chest Pain (ED) Coding Level of Care Code ED Quantitative Developer for Chg Fwd Exam Comprehensive Documented by User: Jerri Sarabia MD 05/29/21 02:14 HPI - Chest Pain General: Chief Complaint: Chest Pain Stated Complaint: ABDOMINAL PAIN/ CHEST PAIN/ WEAKNESS Time Seen by Provider: 05/28/21 21:26 [facility] ED PFSH: Medical History Alcohol dependence Has been prescribed antabuse Anxiety Arthritis of right knee Bipolar disorder Chronic post-traumatic stress disorder (PTSD) Depression Depressive disorder History of anemia History of Wernicke's encephalopathy Hx of cholecystitis Iron deficiency anemia Obesity (BMI 35.0-39.9 without comorbidity) Psychiatric care Recurrent pancreatitis Right elbow tendinitis Suicidal thoughts in the past Surgical History History of Hx of gastric bypass Hx of hernia repair Hx of tubal ligation Hx of unilateral salpingectomy Right Family History Other Diabetes Heart disease Social History Smoking and tobacco status: never smoked Alcohol intake: current History of recent travel: No Current gender identity: Female Course Vital Signs: Vital signs: Vital Signs Temperature 98.6 F 05/28/21 21:24 Pulse Rate 107 H 05/29/21 01:38 Respiratory Rate 24 H 05/29/21 01:38 Blood Pressure 127/76 05/29/21 01:38 Pulse Oximetry 99 05/29/21 00:00 MDM - Chest Pain MDM Narrative: Medical decision making narrative: I took patient over from Dr. Garduno with history of alcoholism and some slight weakness. Patient was hyponatremic likely due to alcoholism and patient feels much improved after IV fluids. She has had no tachycardia no hypertension with no signs of acute withdrawals. Patient did voice to me that she would like to stop drinking. A CT head here is normal. She had no slurred speech or signs of stroke for me. We will start her on Librium for her withdrawal symptoms if she decides to stop drinking. I informed her if she does not drink at all she does not need to take any of the Librium as it is unsafe with alcohol. She is to follow-up with PCP and return if worsening. She understands and agrees the plan. Lab Data: Labs: Lab Results 05/28/21 05/28/21 05/28/21 Range/Units 21:45 21:45 21:45 WBC 7.3 (4.0-10.0) 10^3/ uL RBC 4.15 (4.1-5.3) 10^6/u L Hgb 12.7 (11.5-15.3) g/dL Hct 36.0 L (37.0-47.0) % MCV 86.7 (81-99) fL MCH 30.6 (28.0-34.0) pg MCHC 35.3 (30.0-36.0) g/dL RDW 12.6 (12.1-15.1) % Plt Count 145 (130-400) 10^3/c mm MPV 10.0 (7.4-10.4) fL Neut % (Auto) 67.6 % Lymph % (Auto) 22.2 % Ray % (Auto) 9.5 % Eos % (Auto) 0.0 % Baso % (Auto) 0.3 % Neut # (Auto) 4.95 (1.8-7.7) 10^3/u L Lymph # (Auto) 1.6 (0.8-4.8) 10^3/u L Ray # (Auto) 0.7 (0.2-0.9) 10^3/u L Eos # (Auto) 0.0 (0.0-0.8) 10^3/u L Baso # (Auto) 0.0 (0.0-0.1) 10^3/u L Nucleated RBC % (a uto) 0 % Nucleated RBCs # 0.0 /100WBC Specimen Type Lamin Test O2 Delivery Device Events And Prom[employer] Assistant ID Sodium 128 L (136-145) mmol/L Potassium 4.1 (3.5-5.1) mmol/L Chloride 82 L (98-107) mmol/L Carbon Dioxide 26 (22-29) mmol/L Anion Gap 24.1 H (5-19) BUN 6 (6-20) mg/dL Creatinine 0.5 (0.5-0.9) mg/dL GFR Calculation 131.1 H (90-130) mL/min Glucose 103 (65-115) mg/dL Calculated Osmolal ity 264 L (285-295) mOsm/k g Calcium 7.8 L (8.5-10.5) mg/dL Total Bilirubin 2.5 H (0.15-1.2) mg/dL AST 69 H (0-32) U/L ALT 49 H (0-33) U/L Alkaline Phosphata se 109 H (35-105) IU/L Troponin T Baselin e 9 (0-10) ng/L Troponin T 120 Min [place] (0-10) ng/L Delta Troponin T (0-10) ABS# Total Protein 6.2 L (6.6-8.7) g/dL Albumin 4.0 (3.5-5.2) g/dL Globulin 2.2 (1.3-4.6) g/dL Urine Color (Yellow) Urine Appearance (CLEAR) Urine pH (5-7) Ur Specific Gravit y (1.005-1.030) Urine Protein (Negative) Urine Glucose (UA) (Normal) Urine Ketones (Negative) Urine Blood (Negative) Urine Nitrate (Negative) Urine Bilirubin (Negative) Urine Urobilinogen (Negative) mg/dL Ur Leukocyte Marlys ase (Negative) Urine RBC (0-2) /hpf Urine WBC (0-5) /hpf Ur Squamous Epith Cells (0-5) /hpf Amorphous Sediment Urine Bacteria (NONE) /hpf Urine Mucus /hpf Urine HCG, Qual (Negative) Ethyl Alcohol (0-10) mg/dL Serum Ketones (Negative) 05/28/21 05/28/21 05/28/21 Range/Units 21:45 21:45 22:17 WBC (4.0-10.0) 10^3/ uL RBC (4.1-5.3) 10^6/u L Hgb (11.5-15.3) g/dL Hct (37.0-47.0) % MCV (81-99) fL MCH (28.0-34.0) pg MCHC (30.0-36.0) g/dL RDW (12.1-15.1) % Plt Count (130-400) 10^3/c mm MPV (7.4-10.4) fL Neut % (Auto) % Lymph % (Auto) % Ray % (Auto) % Eos % (Auto) % Baso % (Auto) % Neut # (Auto) (1.8-7.7) 10^3/u L Lymph # (Auto) (0.8-4.8) 10^3/u L Ray # (Auto) (0.2-0.9) 10^3/u L Eos # (Auto) (0.0-0.8) 10^3/u L Baso # (Auto) (0.0-0.1) 10^3/u L Nucleated RBC % (a uto) % Nucleated RBCs # /100WBC Specimen Type Lamin Test O2 Delivery Device Events And Promotions Assistant ID Sodium (136-145) mmol/L Potassium (3.5-5.1) mmol/L Chloride (98-107) mmol/L Carbon Dioxide (22-29) mmol/L Anion Gap (5-19) BUN (6-20) mg/dL Creatinine (0.5-0.9) mg/dL GFR Calculation (90-130) mL/min Glucose (65-115) mg/dL Calculated Osmolal ity (285-295) mOsm/k g Calcium (8.5-10.5) mg/dL Total Bilirubin (0.15-1.2) mg/dL AST (0-32) U/L ALT (0-33) U/L Alkaline Phosphata se (35-105) IU/L Troponin T Baselin e (0-10) ng/L Troponin T 120 Min [place] (0-10) ng/L Delta Troponin T (0-10) ABS# Total Protein (6.6-8.7) g/dL Albumin (3.5-5.2) g/dL Globulin (1.3-4.6) g/dL Urine Color (Yellow) Urine Appearance (CLEAR) Urine pH (5-7) Ur Specific Gravit y (1.005-1.030) Urine Protein (Negative) Urine Glucose (UA) (Normal) Urine Ketones (Negative) Urine Blood (Negative) Urine Nitrate (Negative) Urine Bilirubin (Negative) Urine Urobilinogen (Negative) mg/dL Ur Leukocyte Marlys ase (Negative) Urine RBC (0-2) /hpf Urine WBC (0-5) /hpf Ur Squamous Epith Cells (0-5) /hpf Amorphous Sediment Urine Bacteria (NONE) /hpf Urine Mucus /hpf Urine HCG, Qual Negative (Negative) Ethyl Alcohol < 10 (0-10) mg/dL Serum Ketones Negative (Negative) 05/28/21 05/28/21 05/28/21 Range/Units 22:17 23:08 23:54 WBC (4.0-10.0) 10^3/ uL RBC (4.1-5.3) 10^6/u L Hgb (11.5-15.3) g/dL Hct (37.0-47.0) % MCV (81-99) fL MCH (28.0-34.0) pg MCHC (30.0-36.0) g/dL RDW (12.1-15.1) % Plt Count (130-400) 10^3/c mm MPV (7.4-10.4) fL Neut % (Auto) % Lymph % (Auto) % Ray % (Auto) % Eos % (Auto) % Baso % (Auto) % Neut # (Auto) (1.8-7.7) 10^3/u L Lymph # (Auto) (0.8-4.8) 10^3/u L Ray # (Auto) (0.2-0.9) 10^3/u L Eos # (Auto) (0.0-0.8) 10^3/u L Baso # (Auto) (0.0-0.1) 10^3/u L Nucleated RBC % (a uto) % Nucleated RBCs # /100WBC Specimen Type Venous Lamin Test N/a O2 Delivery Device Room air Events And Prom[employer] Assistant ID [email or web address] Sodium (136-145) mmol/L Potassium (3.5-5.1) mmol/L Chloride (98-107) mmol/L Carbon Dioxide (22-29) mmol/L Anion Gap (5-19) BUN (6-20) mg/dL Creatinine (0.5-0.9) mg/dL GFR Calculation (90-130) mL/min Glucose (65-115) mg/dL Calculated Osmolal ity (285-295) mOsm/k g Calcium (8.5-10.5) mg/dL Total Bilirubin (0.15-1.2) mg/dL AST (0-32) U/L ALT (0-33) U/L Alkaline Phosphata se (35-105) IU/L Troponin T Baselin e (0-10) ng/L Troponin T 120 Min [place] 9.70 (0-10) ng/L Delta Troponin T 0.70 (0-10) ABS# Total Protein (6.6-8.7) g/dL Albumin (3.5-5.2) g/dL Globulin (1.3-4.6) g/dL Urine Color Yellow (Yellow) Urine Appearance Clear (CLEAR) Urine pH 7 (5-7) Ur Specific Gravit y 1.005 (1.005-1.030) Urine Protein Neg (Negative) Urine Glucose (UA) Norm (Normal) Urine Ketones 2+ H (Negative) Urine Blood 2+ H (Negative) Urine Nitrate Negative (Negative) Urine Bilirubin Neg (Negative) Urine Urobilinogen 1 H (Negative) mg/dL Ur Leukocyte Marlys ase Negative (Negative) Urine RBC 15-25 H (0-2) /hpf Urine WBC 0-4 H (0-5) /hpf Ur Squamous Epith Cells 15-25 H (0-5) /hpf Amorphous Sediment Not Reportable Urine Bacteria Trace (NONE) /hpf Urine Mucus Trace /hpf Urine HCG, Qual (Negative) Ethyl Alcohol (0-10) mg/dL Serum Ketones (Negative) Imaging Data^: Other CT: Attestation: I personally reviewed and interpreted this imaging study as follows: Radiologist's impression: [employer] [address] [address] Scan Report Signed Patient: Yeimy Perry Unit #: [id number] : 1970 Age/Sex: 51 / F ADM Date: 05/28/21 Loc: ER Room/Bed: Attending Dr: Ordering Provider/Ordering MD: Josiah Garduno MD Date of Service: 05/28/21 Procedure(s): CT cervical spin wo con* [id number] Accession Number(s): [id number] Report Number: [id number] PROCEDURE INFORMATION: Exam: CT Cervical Spine Without Contrast Exam date and time: 05/28/2021 10:02 PM Age: 51 years old Clinical indication: Injury or trauma; Blunt trauma; Patient HX: ETOH involved fall; Additional info: Fall while drinking TECHNIQUE: Imaging protocol: Computed tomography images of the cervical spine without contrast. Radiation optimization: All CT scans at this facility use at least one of these dose optimization techniques: automated exposure control; mA and/or kV adjustment per patient size (includes targeted exams where dose is matched to clinical indication); or iterative reconstruction. COMPARISON: CT head wo con* [id number] 02/27/2021 8:33 PM RADIATION DOSE METRICS: Total DLP (mGy-cm): 687.92 FINDINGS: Bones/joints: No acute fracture. Normal alignment. Discs/Spinal canal/Neural foramina: No significant disc protrusion. No severe spinal canal stenosis. No significant neural foraminal narrowing. Lungs: Lung apices are normal. Soft tissues: Unremarkable. CT/CT cervical spin wo con* [id number] IMPRESSION: No acute findings. Radiation Dose CTDIVOL = (mGy): DLP = 687.92 (mGy-cm) Dictated By: Tre Wei MD Signed By: Tre Wei MD Signed Date/Time: 05/11 DD/ 24 CT Head: Radiologist's impression: [employer] [address] [address] Scan Report Signed Patient: Yeimy Perry Unit #: [id number] : 1970 Age/Sex: 51 / F ADM Date: 05/28/21 Loc: ER Room/Bed: Attending Dr: Ordering Provider/Ordering MD: Josiah Garduno MD Date of Service: 05/28/21 Procedure(s): CT head wo con* [id number] Accession Number(s): [id number] Report Number: [id number] PROCEDURE INFORMATION: Exam: CT Head Without Contrast Exam date and time: 05/28/2021 10:02 PM Age: 51 years old Clinical indication: Injury or trauma; Blunt trauma (contusions or hematomas); Patient HX: ETOH involved fall; Additional info: Fall, slurred speech, patient has been drinking a large amou TECHNIQUE: Imaging protocol: Computed tomography of the head without contrast. Radiation optimization: All CT scans at this facility use at least one of these dose optimization techniques: automated exposure control; mA and/or kV adjustment per patient size (includes targeted exams where dose is matched to clinical indication); or iterative reconstruction. COMPARISON: CT head wo con* [id number] 02/27/2021 8:33 PM RADIATION DOSE METRICS: Total DLP (mGy-cm): 789.02 FINDINGS: Brain: There is mild diffuse cerebral atrophy. Mainly the com a the Cerebral ventricles: No ventriculomegaly. Paranasal sinuses: Visualized sinuses are unremarkable. No fluid levels. Mastoid air cells: Visualized mastoid air cells are well aerated. Bones/joints: Unremarkable. No acute fracture. Soft tissues: Unremarkable. CT/CT head wo con* [id number] IMPRESSION: There are no acute intracranial findings. Radiation Dose CTDIVOL = (mGy): DLP = 789.02 (mGy-cm) Dictated By: Tre Wei MD Signed By: Tre Wei MD Signed Date/Time: 05/28/212324 DD/ 22 EKG Data^: EKG 1: Attestation: I personally reviewed and interpreted this EKG as follows: EKG interpretation date: 05/28/21 EKG interpretation time: 21:35 Interpretation: nsr hr [address] or t wave abnormalities qrs 90 qtc 469 EKG 2: Attestation: I personally reviewed and interpreted this EKG as follows: EKG interpretation date: 05/29/21 EKG interpretation time: 00:33 Interpretation: nsr hr [address] or t wave abnormalities qrs 92 qtc 468 Discharge Plan Discharge Patient Disposition: Home Clinical Impression: Alcohol use disorder, severe, dependence Chest pain Qualifiers: Chest pain type: unspecified Qualified Code(s): R07.9 - Chest pain, unspecified Condition: Stable Prescriptions: New chlordiazepoxide HCl 10 mg capsule 10 mg PO Q6H PRN (Reason: withdrawal symptoms) Qty: 20 RF: 0 No Action Thera 400 mcg tablet 1 tab PO DAILY 30 Days Qty: 30 RF: 12 ferrous sulfate 325 mg (65 mg iron) tablet 325 mg PO BID RF: 0 fluoxetine 20 mg capsule 20 mg PO DAILY 30 Days Qty: 30 RF: 1 ziprasidone HCl 40 mg capsule 80 mg PO .q evening 30 Days Qty: 60 RF: 1 hydroxyzine pamoate 50 mg capsule 50 mg PO BEDTIME PRN (Reason: anxiety/insomnia) Qty: 30 RF: 1 ziprasidone HCl 80 mg capsule 80 mg PO .q evening Qty: 30 RF: 0 meloxicam 15 mg tablet 15 mg PO BEDTIME 30 Days Qty: 30 RF: 0 Discharge Orders: Discharge ED (Routine); Ordered 05/29/21 Ordered By: Jerri Sarabia Referrals: Da Myles MD [Primary Care Provider] - Discharge Diet: Advance as tolerated Discharge Activity: Resume usual activity Patient Instructions: Chest Pain (ED) Coding Level of Care Code ED Quantitative Developer for Chg Fwd Exam Comprehensive
[2021-05-28] MEDS: lactated ringers 1,000 ML 999 ML IV (22:26)
[2021-05-28] MEDS: pantoprazole 40 mg SDV IVP (22:27)
[2021-05-28 22:28] LABS: Troponin(5th) Baseline 9 ng/L (0-10)
[2021-05-28 22:31] LABS: Alanine Aminotransferase 49 U/L (0-33); Alkaline Phosphatase 109 IU/L (35-105); Anion Gap 24.1 (5-19); Aspartate Amino Transferase 69 U/L (0-32); Blood Urea Nitrogen 6 mg/dL (6-20); Calcium 7.8 mg/dL (8.5-10.5); Carbon Dioxide 26 mmol/L (22-29); Chloride 82 mmol/L (98-107); Globulin 2.2 g/dL (1.3-4.6); Glomerular Filtration Rate 131.1 mL/min (90-130); Glucose 103 mg/dL (65-115); Osmolality Calculated 264 mOsm/kg (285-295); Potassium 4.1 mmol/L (3.5-5.1); Sodium 128 mmol/L (136-145); Total Bilirubin 2.5 mg/dL (0.15-1.2); Total Protein 6.2 g/dL (6.6-8.7)
[2021-05-28 23:00] VITALS: BP 121/79; PULSE 95; RESP 21; O2SAT 100
[2021-05-28 23:04] LABS: Ketone (Acetest) Serum Negative (Negative)
[2021-05-28 23:06] LABS: Alcohol Level < 10 mg/dL (0-10)
[2021-05-28 23:11] LABS: Blood Gas Sample Type Venous; Oxygen Device ROOM AIR
[2021-05-28] MEDS: LORazepam 2 mg/mL INJ 1 mL 1 MG IVP (23:32)
[2021-05-28 23:35] LABS: Urine Appearance Clear (CLEAR); Urine Color Yellow (Yellow)
[2021-05-28] MEDS: thiamine 100 mg Tablet PO (23:35)
--- NOTE | 2021-05-28 23:35 | ECG_ITS ---
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 Measurements Intervals [place] Rate: 100 P: LA: QRS: 56 QRSD: 90 T: 55 QT: 407 QTc: 527 Interpretive Statements SINUS TACHYCARDIA Compared to ECG 02/27/2021 20:28:02 No significant changes Electronically Signed On 05-29-2021 12:22:21 CDT by Alex Thakkar M.D. [id number]
[2021-05-28 23:36] LABS: Add Urine Microscopic? YES; Bilirubin Urine Neg (Negative); Blood Urine 2+ (Negative); Glucose Urine UA Norm (Normal); Ketones Urine 2+ (Negative); Leukocyte Esterase Urine Negative (Negative); Nitrate Urine Negative (Negative); Protein Urine Neg (Negative); Specific Gravity, Urine 1.005 (1.005-1.030); Urobilinogen Urine 1 mg/dL (Negative); pH Urine 7 (5-7)
[2021-05-28 23:41] LABS: Add Urine Culture? No; Bacteria Urine TRACE /hpf; Mucus Urine TRACE /hpf; RBC Urine 15-25 /hpf (0-2); Squamous Epithelial Cell Urine 15-25 /hpf (0-5); WBC Urine 0-4 /hpf (0-5)
[2021-05-29] VITALS: BP 139/84; PULSE 102; RESP 14; O2SAT 99
[2021-05-29] MEDS: sodium chloride 0.9% 1,000 ML 999 ML IV (00:18)
[2021-05-29 01:38] VITALS: BP 127/76; PULSE 107; RESP 24
[2021-06-03 12:26] LABS: Venous Blood Gas Hematocrit 7.6 % (37-47)
[2021-06-03 12:28] LABS: Base Excess VBG 11.5 mmol/L (-3.0-3.0); HCO3 VBG 33.7 mmol/L (24-28); PCO2 VBG 34.5 mmHg (41-51); PO2 VBG 25.9 mmHg (25-40)
== END 2021-05-29 01:42 | disposition home or self-care (01) ==
PROVIDERS: Family Medicine; Emergency Provider Emergency Medicine; PCP Family Medicine Adult Medicine
DX: F10.20 Alcohol dependence, uncomplicated (principal); R07.9 Chest pain, unspecified
CPT/HCPCS: 36415; 70450; 71045; 72125; 80053; 80307; 81001; 81025; 82009; 82803; 84484; 85025; 93005; 96361; 96374; 96375; 99285; C9113; J2060; J7030

== ENCOUNTER 2021-06-14 12:52 | Emergency (ER) | payer MEDICAID, SELFPAY ==
[2021-06-14 12:53] VITALS: BP 116/68; PULSE 105; RESP 18; TEMP 38.3; O2SAT 91; BMI 39.5
--- NOTE | 2021-06-14 12:56 | ED_ITS ---
HPI - Alcohol General: Chief Complaint: Alcohol Stated Complaint: ETOH/ IN A HOT CAR Time Seen by Provider: 06/14/21 12:55 History of Present Illness: HPI narrative: Ms. Perry is a 51-year-old lady with significant past medical history of alcohol abuse who presents to the emergency department due to alcohol abuse. Reportedly, from law enforcement, she was found sitting in a car with an open container. She endorses alcohol use today. She endorses daily alcohol use. Denies history of DTs or alcohol withdrawal seizures. Denies history of hospitalizations regarding alcohol abuse. Denies other changes in health. As such there are no specific quality, intensity, provoking, exacerbating, or alleviating factors Review of Systems General: Reports: 10 or more systems reviewed and unremarkable except in HPI and below Narrative: Unable to obtain due to patient declining to participate COUNT INCLUDES THE [facility] ED PFSH: Medical History Alcohol dependence Has been prescribed antabuse Anxiety Arthritis of right knee Bipolar disorder Chronic post-traumatic stress disorder (PTSD) Depression Depressive disorder History of anemia History of Wernicke's encephalopathy Hx of cholecystitis Iron deficiency anemia Obesity (BMI 35.0-39.9 without comorbidity) Psychiatric care Recurrent pancreatitis Right elbow tendinitis Suicidal thoughts in the past Surgical History History of Hx of gastric bypass Hx of hernia repair Hx of tubal ligation Hx of unilateral salpingectomy Right Family History Other Diabetes Heart disease Social History Smoking and tobacco status: never smoked Alcohol intake: current History of recent travel: No Current gender identity: Female Physical Exam Narrative: EXAM NARRATIVE: GENERAL/CONSTITUTIONAL - No acute distress. patient visibly intoxicated Eyes - PERRL, no conjunctival injection ENMT - Atraumatic external nose and ears. Moist mucous membranes NECK - supple. trachea midline CARDIOVASCULAR - regular rate and rhythm. RESPIRATORY -clear to auscultation bilaterally. No retractions or accessory muscle use. ABDOMEN/GI - Nontender/Nondistended. No tenderness to percussion or evidence of peritonitis MSK - Extremities without obvious deformity or tenderness to palpation SKIN - Warm, Dry NEURO - Slurred speech. Moves all extremities equally. Course ED course: - Patient was seen and evaluated by me at bedside - Patient placed on cardiac monitors, IV access obtained - Initial evaluation notable for clinical intoxication. - Patient non cooperative - Patient attempted to leave multiple times - Based on ED evaluation there is no acute reason to place patient on a 96 hr hold however patient is intoxicated to the degree that she cannot reasonably articulate risks. Therefore law enforcement was called. - Patient contacted by law enforcement - Disposition left AMA. Vital Signs: Vital signs: Vital Signs Temperature 100.9 F H 06/14/21 12:53 Pulse Rate 111 H 06/14/21 13:17 Respiratory Rate 18 06/14/21 12:53 Blood Pressure 116/68 06/14/21 13:17 Pulse Oximetry 91 06/14/21 13:17 MDM - Alcohol Medical Records: Attestation: I reviewed the patient's medical records. Lab Data: Attestation: I reviewed the patient's lab results. Discharge Plan Discharge Patient Disposition: Left Against Medical Advice Condition: Stable Prescriptions: No Action ferrous sulfate 325 mg (65 mg iron) tablet 325 mg PO BID RF: 0 hydroxyzine pamoate 50 mg capsule 50 mg PO BEDTIME PRN (Reason: anxiety/insomnia) Qty: 30 RF: 1 Thera 400 mcg tablet 1 tab PO DAILY 30 Days Qty: 30 RF: 12 chlordiazepoxide HCl 10 mg capsule 10 mg PO Q6H PRN (Reason: withdrawal symptoms) Qty: 20 RF: 0 ziprasidone HCl 80 mg capsule 80 mg PO .q evening RF: 0 meloxicam 15 mg tablet 15 mg PO BEDTIME RF: 0 fluoxetine 20 mg capsule 20 mg PO DAILY RF: 0 Referrals: Da Myles MD [Primary Care Provider] - Coding Level of Care Code ED Party Plan Sales Agent for Hannah Fulton
[2021-06-14 13:17] VITALS: BP 116/68; PULSE 111; O2SAT 91
--- NOTE | 2021-06-14 13:51 | PC.NURSE ---
pt was threatening to pull out her IV. It was removed by this nurse before she removed it herself.
== END 2021-06-14 13:59 | disposition left against medical advice (07) ==
PROVIDERS: Emergency Provider Emergency Medicine; PCP Family Medicine Adult Medicine
DX: F10.10 Alcohol abuse, uncomplicated (principal); E66.9 Obesity, unspecified; Z68.39 Body mass index [BMI] 39.0-39.9, adult; Z53.29 Procedure and treatment not carried out because of patient's decision for other reasons
CPT/HCPCS: 99282

== ENCOUNTER 2021-06-15 08:54 | Emergency (ER) | payer MEDICAID, SELFPAY ==
[2021-06-15 09:02] VITALS: BP 110/83; PULSE 72; RESP 18; TEMP 36.2; O2SAT 100; BMI 41.8
--- NOTE | 2021-06-15 09:08 | CT_ITS ---
WS: [id number] CT HEAD TECHNIQUE: Noncontrast CT of the head obtained from the skullbase to the vertex. CLINICAL INFORMATION: AMS COMPARISON: May 28, 2021 DLP: 651.[address] scans at [facility] use at least one of these dose optimization techniques: automat ed exposure control; mA and/or kV adjustment per patient size (includes targeted exams where dose is matched to clinical indication); or iterative reconstruction. FINDINGS: No evidence of intracranial hemorrhage or mass effect. Ventricular system and basal cisterns are llanes nt. Mild small vessel changes with mild parenchymal volume loss. No extra-axial fluid collections. No evidence of mass or mass effect. Normal south-white differentiation. Incidental slightly low-lying ce rebellar tonsils unchanged. Mild mucosal thickening paranasal sinuses and mastoid air cells are well aerated. CT/CT head wo con* [id number] IMPRESSION: 1. No evidence of intracranial hemorrhage or mass effect. 2. Mild small vessel changes. Mild parenchymal volume loss. 3. Incidental slightly low-lying cerebellar tonsils unchanged. 4. No acute intracranial findings.
--- NOTE | 2021-06-15 09:09 | ED_ITS ---
Documented by User: ÁNGEL Bowers 06/15/21 12:19 HPI - Alcohol General: Chief Complaint: Alcohol Stated Complaint: Decreased Responsiveness/ETOH Time Seen by Provider: 06/15/21 08:57 Source: EMS Mode of arrival: EMS Limitations: altered mental status History of Present Illness: HPI narrative: Patient is a 51-year-old female arrives via EMS after she was found passed out behind a building. EMS states there were empty vodka bottles all around her. Patient is well-known to the ED for her chronic alcohol abuse. EMS did administer Narcan in route secondary to altered mental and a normal D stick. They reported minimal improvement of symptoms. EtOH on breath upon arrival. She is unwilling/unable to answer any questions at this time. She is somnolent but will respond to painful stimuli and immediately start complaining but then drifts back off to sleep. MD complaint: alcohol intoxication Chronic alcohol use: Yes Previous visits for alcohol intoxication: Yes Treatments prior to arrival: none Review of Systems General: Reports: ROS unobtainable due to mental status PFSH ED PFSH: Medical History Alcohol dependence Has been prescribed antabuse Anxiety Arthritis of right knee Bipolar disorder Chronic post-traumatic stress disorder (PTSD) Depression Depressive disorder History of anemia History of Wernicke's encephalopathy Hx of cholecystitis Iron deficiency anemia Obesity (BMI 35.0-39.9 without comorbidity) Psychiatric care Recurrent pancreatitis Right elbow tendinitis Suicidal thoughts in the past Surgical History History of Hx of gastric bypass Hx of hernia repair Hx of tubal ligation Hx of unilateral salpingectomy Right Family History Other Diabetes Heart disease Social History Smoking and tobacco status: never smoked Alcohol intake: current History of recent travel: No Current gender identity: Female Female Reproductive History: Date of last menstrual period: 05/25/21 Physical Exam Const: EXAM LIMITATIONS: altered mental status (intoxicated) GENERAL APPEARANCE: disheveled, odor of alcohol detected and other (somnolent) OTHER: patient arrives somnolent-she does respond to pain and will awaken and start complaining but then falls back to sleep patient is covered in dirt and appears to have soiled herself HENMT: COMMON NORMALS: normocephalic and atraumatic HEAD & SCALP: normocephalic and atraumatic Resp: COMMON NORMALS: normal respiratory effort and clear to auscultation bilaterally AUSCULTATION: clear to auscultation bilaterally Cardio: COMMON NORMALS: regular rate and regular rhythm RATE: regular rate RHYTHM: regular rhythm Extremity: COMMON NORMALS: normal to inspection Neuro: MELISA COMA SCALE: document GCS findings Melisa coma scale eye opening: Spontaneous Melisa coma scale verbal response: Words Melisa coma scale motor response: Localising Melisa coma scale total score: 12 Course Reevaluation(s): Reevaluation #1: Patient is more alert and talking. Oriented to self, , location. She is requesting to go home and wants to call an Uber. Ambulation trial failed. Patient will continue to be boarded in ED for safety at this time. Vital Signs: Vital signs: Vital Signs Temperature 97.2 F L 06/15/21 09:02 Pulse Rate 95 06/15/21 11:51 Respiratory Rate 18 06/15/21 11:51 Blood Pressure 146/103 06/15/21 11:51 Pulse Oximetry 99 06/15/21 11:51 MDM - Alcohol MDM Narrative: Medical decision making narrative: Patient has now been up and ambulating around the ED w/o assistance and has a steady gait. Upon re-e xamination she is eating a sandwich and drinking a soda. She is requesting to go home and is willing to call an Uber. I think this is acceptable even though I did encourage her to stay for fluids. I did speak to patient about detox and rehabilitation for her alcohol abuse. She states she did go to rehab in February but at this time she states she doesn't want to pursue sobriety. Lab Data: Labs: Lab Results 06/15/21 06/15/21 06/15/21 Range/Units 09:45 09:45 10:08 WBC (4.0-10.0) 10^3/ uL RBC (4.1-5.3) 10^6/u L Hgb (11.5-15.3) g/dL Hct (37.0-47.0) % MCV (81-99) fl MCH (28.0-34.0) pg MCHC (30.0-36.0) g/dL RDW (12.1-15.1) % Plt Count (130-400) 10^3/c mm MPV (7.4-10.4) fL Neut % (Auto) % Lymph % (Auto) % Taliaferro % (Auto) % Eos % (Auto) % Baso % (Auto) % Neut # (Auto) (1.8-7.7) 10^3/u L Lymph # (Auto) (0.8-4.8) 10^3/u L Taliaferro # (Auto) (0.2-0.9) 10^3/u L Eos # (Auto) (0.0-0.8) 10^3/u L Baso # (Auto) (0.0-0.1) 10^3/u L Nucleated RBC % (a uto) % Nucleated RBCs # /100WBC Specimen Type Sample Site ABG pH (7.35-7.45) ABG pCO2 (35-45) mmHg ABG pO2 (80.0-100.0) mmH g ABG HCO3 (22-26) mmol/L ABG O2 Saturation ABG Base Excess (-2.0-2.0) mmol/ L Lamin Test A-a O2 Gradient Hematocrit (37-47) % Hgb O2 Saturation (95-100) % Carboxyhemoglobin (0.4-20.1) %THgb Methemoglobin (0.4-1.5) % Total Hemoglobin (12-16) g/dL Ionized Calcium (1.1-1.4) mmol/L O2 Delivery Device O2 Liters/Min % FiO2 % Transplanter Orchid ID Sodium 142 (136-145) mmol/L Potassium 4.0 (3.5-5.1) mmol/L Chloride 101 (98-107) mmol/L Carbon Dioxide 19 L (22-29) mmol/L Anion Gap 26.0 H (5-19) BUN 7 (6-20) mg/dL Creatinine 0.4 L (0.5-0.9) mg/dL GFR Calculation 169.7 H (90-130) mL/min Glucose 102 (65-115) mg/dL Calculated Osmolal ity 292 (285-295) mOsm/k g Calcium 8.5 (8.5-10.5) mg/dL Total Bilirubin 0.9 (0.15-1.2) mg/dL AST 67 H (0-32) U/L ALT 104 H (0-33) U/L Alkaline Phosphata se 169 H (35-105) IU/L Total Protein 6.9 (6.6-8.7) g/dL Albumin 3.9 (3.5-5.2) g/dL Globulin 3.0 (1.3-4.6) g/dL Urine Color Yellow (Yellow) Urine Appearance Cloudy (CLEAR) Urine pH 5 (5-7) Ur Specific Gravit y 1.010 (1.005-1.030) Urine Protein Neg (Negative) Urine Glucose (UA) Norm (Normal) Urine Ketones 1+ H (Negative) Urine Blood 2+ H (Negative) Urine Nitrate Negative (Negative) Urine Bilirubin Neg (Negative) Urine Urobilinogen Norm (Negative) mg/dL Ur Leukocyte Marlys ase Negative (Negative) Urine RBC 0-4 H (0-2) /hpf Urine WBC None (0-5) /hpf Ur Squamous Epith Cells 0-4 H (0-5) /hpf Amorphous Sediment Not Reportable Urine Bacteria 1+ H (NONE) /hpf Urine Mucus Trace /hpf Salicylates < 0.3 L (3-10) mg/dL Urine Opiates Scre en Negative (Negative) ng/mL Acetaminophen < 5.0 L (10-30) ug/mL Ur Barbiturates Sc reen Negative (Negative) ng/mL Ur Phencyclidine S crn Negative (Negative) ng/mL Ur Amphetamines Sc reen Negative (Negative) ng/mL U Benzodiazepines Scrn Negative (Negative) ng/mL Urine Cocaine Scre en Negative (Negative) ng/mL U Marijuana (THC) Screen Negative (Negative) ng/mL Ethyl Alcohol 437 H* (0-10) mg/dL 06/15/21 06/15/21 Range/Units 10:08 10:09 WBC 8.6 (4.0-10.0) 10^3/ uL RBC 4.70 (4.1-5.3) 10^6/u L Hgb 14.3 (11.5-15.3) g/dL Hct 44.3 (37.0-47.0) % MCV 94.3 (81-99) fl MCH 30.4 (28.0-34.0) pg MCHC 32.3 (30.0-36.0) g/dL RDW 13.5 (12.1-15.1) % Plt Count 283 (130-400) 10^3/c mm MPV 8.9 (7.4-10.4) fL Neut % (Auto) 78.0 % Lymph % (Auto) 15.5 % Taliaferro % (Auto) 5.5 % Eos % (Auto) 0.1 % Baso % (Auto) 0.5 % Neut # (Auto) 6.68 (1.8-7.7) 10^3/u L Lymph # (Auto) 1.3 (0.8-4.8) 10^3/u L Taliaferro # (Auto) 0.5 (0.2-0.9) 10^3/u L Eos # (Auto) 0.0 (0.0-0.8) 10^3/u L Baso # (Auto) 0.0 (0.0-0.1) 10^3/u L Nucleated RBC % (a uto) 0 % Nucleated RBCs # 0.0 /100WBC Specimen Type Arterial Sample Site Radial, left ABG pH 7.33 L (7.35-7.45) ABG pCO2 42.3 (35-45) mmHg ABG pO2 142.0 H (80.0-100.0) mmH g ABG HCO3 22.3 (22-26) mmol/L ABG O2 Saturation 97.1 ABG Base Excess -3.6 L (-2.0-2.0) mmol/ L Lamin Test Pos A-a O2 Gradient Not Reportable Hematocrit 44.8 (37-47) % Hgb O2 Saturation 96.4 (95-100) % Carboxyhemoglobin < 0.0 L (0.4-20.1) %THgb Methemoglobin 0.9 (0.4-1.5) % Total Hemoglobin 14.6 (12-16) g/dL Ionized Calcium 1.1 (1.1-1.4) mmol/L O2 Delivery Device Nc O2 Liters/Min 2.0 % FiO2 28.0 % Transplanter Orchid ID Jmn Sodium 150.0 H (136-145) mmol/L Potassium 3.9 (3.5-5.1) mmol/L Chloride (98-107) mmol/L Carbon Dioxide (22-29) mmol/L Anion Gap (5-19) BUN (6-20) mg/dL Creatinine (0.5-0.9) mg/dL GFR Calculation (90-130) mL/min Glucose 105.0 (65-115) mg/dL Calculated Osmolal ity (285-295) mOsm/k g Calcium (8.5-10.5) mg/dL Total Bilirubin (0.15-1.2) mg/dL AST (0-32) U/L ALT (0-33) U/L Alkaline Phosphata se (35-105) IU/L Total Protein (6.6-8.7) g/dL Albumin (3.5-5.2) g/dL Globulin (1.3-4.6) g/dL Urine Color (Yellow) Urine Appearance (CLEAR) Urine pH (5-7) Ur Specific Gravit y (1.005-1.030) Urine Protein (Negative) Urine Glucose (UA) (Normal) Urine Ketones (Negative) Urine Blood (Negative) Urine Nitrate (Negative) Urine Bilirubin (Negative) Urine Urobilinogen (Negative) mg/dL Ur Leukocyte Marlys ase (Negative) Urine RBC (0-2) /hpf Urine WBC (0-5) /hpf Ur Squamous Epith Cells (0-5) /hpf Amorphous Sediment Urine Bacteria (NONE) /hpf Urine Mucus /hpf Salicylates (3-10) mg/dL Urine Opiates Scre en (Negative) ng/mL Acetaminophen (10-30) ug/mL Ur Barbiturates Sc reen (Negative) ng/mL Ur Phencyclidine S crn (Negative) ng/mL Ur Amphetamines Sc reen (Negative) ng/mL U Benzodiazepines Scrn (Negative) ng/mL Urine Cocaine Scre en (Negative) ng/mL U Marijuana (THC) Screen (Negative) ng/mL Ethyl Alcohol (0-10) mg/dL Imaging Data^: CXR: Radiologist's impression: [address] [id number] ReportSigned Patient: Yeimy Perry #: [id number]: [id number]#:[id number]/Sex: 51 / FADM Date: 06/15/21Loc: ERRoom/Bed:Attending Dr: Ordering Provider/Ordering MD: Courtney Kang Date of Service: 06/15/21 Procedure(s): XR chest 1V portable [id number] Accession Number(s): [id number] Report Number: [id number] WS: [id number] Exam: XR chest 1V portable [id number] Date/Time of Exam: 06/15/2021 9:09 AM Reason For Exam: AMS Comparison 05/28/2021. Findings: The lungs are clear and fully expanded. Costophrenic angles are sharp. No infiltrates. Bronchovascular relief appears normal. Cardiac silhouette is unremarkable. Bony elements are intact. XR/XR chest 1V portable [id number] IMPRESSION: Unremarkable chest radiograph. Dictated By:Hemanth Gonzales, DOSigned By:Hemanth Gonzales, MARIANNigned Date/Time:06/15/21923DD/ 2 CT Head: Radiologist's impression: [address] [id number] Scan ReportSigned Patient: Yeimy Perry #: [id number]: [id number]#:[id number]/Sex: 51 / FADM Date: 06/15/21Loc: ERRoom/Bed:Attending Dr: Ordering Provider/Ordering MD: Courtney Kang Date of Service: 06/15/21 Procedure(s): CT head wo con* [id number] Accession Number(s): [id number] Report Number: [id number] WS: [id number] CT HEAD TECHNIQUE: Noncontrast CT of the head obtained from the skullbase to the vertex. CLINICAL INFORMATION: AMS COMPARISON: May 28, 2021 DLP: 651.[address] scans at [facility] use at least one of these dose optimization techniques: automated exposure control; mA and/or kV adjustment per patient size (includes targeted exams where dose is matched to clinical indication); or iterative reconstruction. FINDINGS: No evidence of intracranial hemorrhage or mass effect. Ventricular system and basal cisterns are patent. Mild small vessel changes with mild parenchymal volume loss. No extra-axial fluid collections. No evidence of mass or mass effect. Normal south-white differentiation. Incidental slightly low-lying cerebellar tonsils unchanged. Mild mucosal thickening paranasal sinuses and mastoid air cells are well aerated. CT/CT head wo con* [id number] IMPRESSION: 1. No evidence of intracranial hemorrhage or mass effect. 2. Mild small vessel changes. Mild parenchymal volume loss. 3. Incidental slightly low-lying cerebellar tonsils unchanged. 4. No acute intracranial findings. Dictated By:Lucio Vernon MDSigned By:Lucio Vernon MDSigned Date/Time:06/15/21 1028DD/ 1020 Discharge Plan Discharge Patient Disposition: Left Against Medical Advice Clinical Impression: Chronic alcohol abuse, Alcoholic ketoacidosis Acute alcohol intoxication Qualifiers: Complication of substance-induced condition: uncomplicated Qualified Code(s): F10.920 - Alcohol use, unspecified with intoxication, uncomplicated Condition: Stable Prescriptions: No Action ferrous sulfate 325 mg (65 mg iron) tablet 325 mg PO BID RF: 0 hydroxyzine pamoate 50 mg capsule 50 mg PO BEDTIME PRN (Reason: anxiety/insomnia) Qty: 30 RF: 1 Thera 400 mcg tablet 1 tab PO DAILY 30 Days Qty: 30 RF: 12 chlordiazepoxide HCl 10 mg capsule 10 mg PO Q6H PRN (Reason: withdrawal symptoms) Qty: 20 RF: 0 ziprasidone HCl 80 mg capsule 80 mg PO DAILY RF: 0 meloxicam 15 mg tablet 15 mg PO BEDTIME RF: 0 fluoxetine 20 mg capsule 20 mg PO DAILY RF: 0 Referrals: Da Myles MD [Primary Care Provider] - Patient Instructions: Alcoholism, Alcohol Intoxication (ED), Abuse of Alcohol (ED) Coding Level of Care Code ED Paper Rewinder Operator for Chg Fwd Exam Detailed Documented by User: Aldo Jenkins DO 06/21/21 06:18 HPI - Alcohol 2 General: Chief Complaint: Alcohol Stated Complaint: Decreased Responsiveness/ETOH Time Seen by Provider: 06/15/21 08:57 History of Present Illness: HPI narrative: Patient presents is extremely intoxicated. After a time she began to interact more eventually she looks up and ambulatory. She denies any suicidal or homicidal ideation she is adamant about leaving. When she arrived here she had had a bowel movement while blacked out and had vomited. Initial exam to the extent that she will allow and labs did not show anything significantly acute except for her extremely elevated blood alcohol level. complaint: alcohol intoxication [facility] ED PFSH: Medical History Alcohol dependence Has been prescribed antabuse Anxiety Arthritis of right knee Bipolar disorder Chronic post-traumatic stress disorder (PTSD) Depression Depressive disorder History of anemia History of Wernicke's encephalopathy Hx of cholecystitis Iron deficiency anemia Obesity (BMI 35.0-39.9 without comorbidity) Psychiatric care Recurrent pancreatitis Right elbow tendinitis Suicidal thoughts in the past Surgical History History of Hx of gastric bypass Hx of hernia repair Hx of tubal ligation Hx of unilateral salpingectomy Right Family History Other Diabetes Heart disease Social History Smoking and tobacco status: never smoked Alcohol intake: current History of recent travel: No Current gender identity: Female Course Vital Signs: Vital signs: Vital Signs Temperature 97.2 F L 06/15/21 09:02 Pulse Rate 95 06/15/21 11:51 Respiratory Rate 18 06/15/21 11:51 Blood Pressure 146/103 06/15/21 11:51 Pulse Oximetry 99 06/15/21 11:51 MDM - Alcohol MDM Narrative: Medical decision making narrative: Made several attempts to convince patient to stay. She is still intoxicated but she is awake and alert enough that he can ambulate. She refuses to stay at this point we do not have anything to place her in a 96-hour hold. She will be allowed to leave AMA encourage her to pursue sobriety although she expresses no interest. Patient was warned she has life-threatening complications of her alcohol use despite this she refuses to say she does express understanding and is aware that she can return if she at any point. Lab Data: Labs: Lab Results 06/15/21 06/15/21 06/15/21 Range/Units 09:45 09:45 10:08 WBC (4.0-10.0) 10^3/ uL RBC (4.1-5.3) 10^6/u L Hgb (11.5-15.3) g/dL Hct (37.0-47.0) % MCV (81-99) fl MCH (28.0-34.0) pg MCHC (30.0-36.0) g/dL RDW (12.1-15.1) % Plt Count (130-400) 10^3/c mm MPV (7.4-10.4) fL Neut % (Auto) % Lymph % (Auto) % Taliaferro % (Auto) % Eos % (Auto) % Baso % (Auto) % Neut # (Auto) (1.8-7.7) 10^3/u L Lymph # (Auto) (0.8-4.8) 10^3/u L Taliaferro # (Auto) (0.2-0.9) 10^3/u L Eos # (Auto) (0.0-0.8) 10^3/u L Baso # (Auto) (0.0-0.1) 10^3/u L Nucleated RBC % (a uto) % Nucleated RBCs # /100WBC Specimen Type Sample Site ABG pH (7.35-7.45) ABG pCO2 (35-45) mmHg ABG pO2 (80.0-100.0) mmH g ABG HCO3 (22-26) mmol/L ABG O2 Saturation ABG Base Excess (-2.0-2.0) mmol/ L Lmain Test A-a O2 Gradient Hematocrit (37-47) % Hgb O2 Saturation (95-100) % Carboxyhemoglobin (0.4-20.1) %THgb Methemoglobin (0.4-1.5) % Total Hemoglobin (12-16) g/dL Ionized Calcium (1.1-1.4) mmol/L O2 Delivery Device O2 Liters/Min % FiO2 % Transplanter Orchid ID Sodium 142 (136-145) mmol/L Potassium 4.0 (3.5-5.1) mmol/L Chloride 101 (98-107) mmol/L Carbon Dioxide 19 L (22-29) mmol/L Anion Gap 26.0 H (5-19) BUN 7 (6-20) mg/dL Creatinine 0.4 L (0.5-0.9) mg/dL GFR Calculation 169.7 H (90-130) mL/min Glucose 102 (65-115) mg/dL Calculated Osmolal ity 292 (285-295) mOsm/k g Calcium 8.5 (8.5-10.5) mg/dL Total Bilirubin 0.9 (0.15-1.2) mg/dL AST 67 H (0-32) U/L ALT 104 H (0-33) U/L Alkaline Phosphata se 169 H (35-105) IU/L Total Protein 6.9 (6.6-8.7) g/dL Albumin 3.9 (3.5-5.2) g/dL Globulin 3.0 (1.3-4.6) g/dL Urine Color Yellow (Yellow) Urine Appearance Cloudy (CLEAR) Urine pH 5 (5-7) Ur Specific Gravit y 1.010 (1.005-1.030) Urine Protein Neg (Negative) Urine Glucose (UA) Norm (Normal) Urine Ketones 1+ H (Negative) Urine Blood 2+ H (Negative) Urine Nitrate Negative (Negative) Urine Bilirubin Neg (Negative) Urine Urobilinogen Norm (Negative) mg/dL Ur Leukocyte Marlys ase Negative (Negative) Urine RBC 0-4 H (0-2) /hpf Urine WBC None (0-5) /hpf Ur Squamous Epith Cells 0-4 H (0-5) /hpf Amorphous Sediment Not Reportable Urine Bacteria 1+ H (NONE) /hpf Urine Mucus Trace /hpf Salicylates < 0.3 L (3-10) mg/dL Urine Opiates Scre en Negative (Negative) ng/mL Acetaminophen < 5.0 L (10-30) ug/mL Ur Barbiturates Sc reen Negative (Negative) ng/mL Ur Phencyclidine S crn Negative (Negative) ng/mL Ur Amphetamines Sc reen Negative (Negative) ng/mL U Benzodiazepines Scrn Negative (Negative) ng/mL Urine Cocaine Scre en Negative (Negative) ng/mL U Marijuana (THC) Screen Negative (Negative) ng/mL Ethyl Alcohol 437 H* (0-10) mg/dL 06/15/21 06/15/21 Range/Units 10:08 10:09 WBC 8.6 (4.0-10.0) 10^3/ uL RBC 4.70 (4.1-5.3) 10^6/u L Hgb 14.3 (11.5-15.3) g/dL Hct 44.3 (37.0-47.0) % MCV 94.3 (81-99) fl MCH 30.4 (28.0-34.0) pg MCHC 32.3 (30.0-36.0) g/dL RDW 13.5 (12.1-15.1) % Plt Count 283 (130-400) 10^3/c mm MPV 8.9 (7.4-10.4) fL Neut % (Auto) 78.0 % Lymph % (Auto) 15.5 % Taliaferro % (Auto) 5.5 % Eos % (Auto) 0.1 % Baso % (Auto) 0.5 % Neut # (Auto) 6.68 (1.8-7.7) 10^3/u L Lymph # (Auto) 1.3 (0.8-4.8) 10^3/u L Taliaferro # (Auto) 0.5 (0.2-0.9) 10^3/u L Eos # (Auto) 0.0 (0.0-0.8) 10^3/u L Baso # (Auto) 0.0 (0.0-0.1) 10^3/u L Nucleated RBC % (a uto) 0 % Nucleated RBCs # 0.0 /100WBC Specimen Type Arterial Sample Site Radial, left ABG pH 7.33 L (7.35-7.45) ABG pCO2 42.3 (35-45) mmHg ABG pO2 142.0 H (80.0-100.0) mmH g ABG HCO3 22.3 (22-26) mmol/L ABG O2 Saturation 97.1 ABG Base Excess -3.6 L (-2.0-2.0) mmol/ L Lamin Test Pos A-a O2 Gradient Not Reportable Hematocrit 44.8 (37-47) % Hgb O2 Saturation 96.4 (95-100) % Carboxyhemoglobin < 0.0 L (0.4-20.1) %THgb Methemoglobin 0.9 (0.4-1.5) % Total Hemoglobin 14.6 (12-16) g/dL Ionized Calcium 1.1 (1.1-1.4) mmol/L O2 Delivery Device Nc O2 Liters/Min 2.0 % FiO2 28.0 % Transplanter Orchid ID Jmn Sodium 150.0 H (136-145) mmol/L Potassium 3.9 (3.5-5.1) mmol/L Chloride (98-107) mmol/L Carbon Dioxide (22-29) mmol/L Anion Gap (5-19) BUN (6-20) mg/dL Creatinine (0.5-0.9) mg/dL GFR Calculation (90-130) mL/min Glucose 105.0 (65-115) mg/dL Calculated Osmolal ity (285-295) mOsm/k g Calcium (8.5-10.5) mg/dL Total Bilirubin (0.15-1.2) mg/dL AST (0-32) U/L ALT (0-33) U/L Alkaline Phosphata se (35-105) IU/L Total Protein (6.6-8.7) g/dL Albumin (3.5-5.2) g/dL Globulin (1.3-4.6) g/dL Urine Color (Yellow) Urine Appearance (CLEAR) Urine pH (5-7) Ur Specific Gravit y (1.005-1.030) Urine Protein (Negative) Urine Glucose (UA) (Normal) Urine Ketones (Negative) Urine Blood (Negative) Urine Nitrate (Negative) Urine Bilirubin (Negative) Urine Urobilinogen (Negative) mg/dL Ur Leukocyte Marlys ase (Negative) Urine RBC (0-2) /hpf Urine WBC (0-5) /hpf Ur Squamous Epith Cells (0-5) /hpf Amorphous Sediment Urine Bacteria (NONE) /hpf Urine Mucus /hpf Salicylates (3-10) mg/dL Urine Opiates Scre en (Negative) ng/mL Acetaminophen (10-30) ug/mL Ur Barbiturates Sc reen (Negative) ng/mL Ur Phencyclidine S crn (Negative) ng/mL Ur Amphetamines Sc reen (Negative) ng/mL U Benzodiazepines Scrn (Negative) ng/mL Urine Cocaine Scre en (Negative) ng/mL U Marijuana (THC) Screen (Negative) ng/mL Ethyl Alcohol (0-10) mg/dL Discharge Plan Discharge Patient Disposition: Left Against Medical Advice Clinical Impression: Chronic alcohol abuse, Alcoholic ketoacidosis Acute alcohol intoxication Qualifiers: Complication of substance-induced condition: uncomplicated Qualified Code(s): F10.920 - Alcohol use, unspecified with intoxication, uncomplicated Condition: Stable Prescriptions: No Action ferrous sulfate 325 mg (65 mg iron) tablet 325 mg PO BID RF: 0 hydroxyzine pamoate 50 mg capsule 50 mg PO BEDTIME PRN (Reason: anxiety/insomnia) Qty: 30 RF: 1 Thera 400 mcg tablet 1 tab PO DAILY 30 Days Qty: 30 RF: 12 chlordiazepoxide HCl 10 mg capsule 10 mg PO Q6H PRN (Reason: withdrawal symptoms) Qty: 20 RF: 0 ziprasidone HCl 80 mg capsule 80 mg PO DAILY RF: 0 meloxicam 15 mg tablet 15 mg PO BEDTIME RF: 0 fluoxetine 20 mg capsule 20 mg PO DAILY RF: 0 Referrals: Da Myles MD [Primary Care Provider] - Patient Instructions: Alcoholism, Alcohol Intoxication (ED), Abuse of Alcohol (ED) Coding Level of Care Code ED Paper Rewinder Operator for Hannah Fwd Exam Detailed
--- NOTE | 2021-06-15 09:09 | XR_ITS ---
WS: [id number] Exam: XR chest 1V portable [id number] Date/Time of Exam: 06/15/2021 9:09 AM Reason For Exam: AMS Comparison 05/28/2021. Findings: The lungs are clear and fully expanded. Costophrenic angles are sharp. No infiltrates. Bronchovascula r relief appears normal. Cardiac silhouette is unremarkable. Bony elements are intact. XR/XR chest 1V portable [id number] IMPRESSION: Unremarkable chest radiograph.
--- NOTE | 2021-06-15 09:18 | ECG_ITS ---
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
[2021-06-15 10:00] VITALS: BP 123/79; PULSE 83; RESP 14; O2SAT 97
[2021-06-15 10:13] LABS: Basophils % 0.5 %; Eosinophils % 0.1 %; Hematocrit 44.3 % (37.0-47.0); Hemoglobin 14.3 g/dL (11.5-15.3); Lymphocytes # 1.3 10^3/uL (0.8-4.8); Lymphocytes % 15.5 %; Mean Corpuscular HGB Conc 32.3 g/dL (30.0-36.0); Mean Corpuscular Hemoglobin 30.4 pg (28.0-34.0); Mean Corpuscular Volume 94.3 fl (81-99); Mean Platelet Volume 8.9 fL (7.4-10.4); Monocytes # 0.5 10^3/uL (0.2-0.9); Monocytes % 5.5 %; Neutrophils # 6.68 10^3/uL (1.8-7.7); Nucleated Red Blood Cells % 0 %; Platelet Count 283 10^3/cmm (130-400); Red Cell Distribution Width 13.5 % (12.1-15.1); White Blood Count 8.6 10^3/uL (4.0-10.0)
[2021-06-15 10:17] LABS: Amphetamines Screen Urine Negative (Negative); Barbiturates Screen Urine Negative (Negative); Benzodiazepines Screen Urine Negative (Negative); Cocaine Screen Urine Negative (Negative); Opiate Screen Urine Negative (Negative); PCP Screen Urine Negative (Negative); THC Screen Urine Negative (Negative); Urine Appearance Cloudy (CLEAR); Urine Color Yellow (Yellow); pH Urine 5 (5-7)
[2021-06-15 10:18] LABS: Add Urine Culture? No; Add Urine Microscopic? YES; Bacteria Urine 1+ /hpf; Bilirubin Urine Neg (Negative); Blood Urine 2+ (Negative); Glucose Urine UA Norm (Normal); Ketones Urine 1+ (Negative); Leukocyte Esterase Urine Negative (Negative); Mucus Urine TRACE /hpf; Nitrate Urine Negative (Negative); Protein Urine Neg (Negative); RBC Urine 0-4 /hpf (0-2); Squamous Epithelial Cell Urine 0-4 /hpf (0-5); Urobilinogen Urine Norm (Negative)
--- NOTE | 2021-06-15 10:20 | PC.NURSE ---
UNABLE TO OBTAIN IV STATUS AND START IV FLUIDS; ÁNGEL GAMBOA NOTIFIED; OK TO HOLD FLUIDS AND HAVE PHLEBOTOMY OBTAIN LABS.
[2021-06-15 10:21] LABS: ABG PCO2 42.3 mmHg (35-45); ABG PH Result 7.33 (7.35-7.45); Arterial Blood Gas Hematocrit 44.8 % (37-47); Base Excess ABG -3.6 mmol/L (-2.0-2.0); Blood Gas Allen Test Pos; Blood Gas Sample Site Radial, left; Blood Gas Sample Type Arterial; Carboxyhemoglobin < 0.0 %THgb (0.4-20.1); HCO3 ABG 22.3 mmol/L (22-26); HGB O2 Sat 96.4 % (95-100); Ionized Calcium Level - ABG 1.1 mmol/L (1.1-1.4); Methemoglobin 0.9 % (0.4-1.5); Oxygen Device NC; Oxygen Saturation ABG 97.1; Potassium Level - ABG 3.9 mmol/L (3.5-5.0); Total Hemoglobin 14.6 g/dL (12-16)
--- NOTE | 2021-06-15 10:30 | PC.NURSE ---
pt wants to leave AMA by UBER. ED provider notified. Pt could not ambulate without nurse assistance. will continue to monitor.
[2021-06-15 10:41] LABS: Alanine Aminotransferase 104 U/L (0-33); Albumin Level 3.9 g/dL (3.5-5.2); Alkaline Phosphatase 169 IU/L (35-105); Aspartate Amino Transferase 67 U/L (0-32); Blood Urea Nitrogen 7 mg/dL (6-20); Calcium 8.5 mg/dL (8.5-10.5); Carbon Dioxide 19 mmol/L (22-29); Chloride 101 mmol/L (98-107); Glomerular Filtration Rate 169.7 mL/min (90-130); Glucose 102 mg/dL (65-115); Osmolality Calculated 292 mOsm/kg (285-295); Sodium 142 mmol/L (136-145); Total Bilirubin 0.9 mg/dL (0.15-1.2); Total Protein 6.9 g/dL (6.6-8.7)
[2021-06-15 10:44] LABS: Acetaminophen < 5.0 ug/mL (10-30); Alcohol Level 437 mg/dL (0-10); Salicylate < 0.3 mg/dL (3-10)
--- NOTE | 2021-06-15 10:50 | PC.NURSE ---
ETOH 437. THIS NURSE NOTIFIED DEEPAK MAXWELL.
--- NOTE | 2021-06-15 11:48 | PC.PHAR ---
PT UNABLE TO VERIFY MEDICATIONS-MEDICATIONS ENTERED ARE WHAT EXT MED HISTORY SHOWS HAS BEEN FILLED RECENTLY AND WHAT WAS ENTERED ON PREVIOUS ENTERED MED LIST-NOTES ARE MADE IN THE PHARMACY COMMENTS
[2021-06-15 11:51] VITALS: BP 146/103; PULSE 95; RESP 18; O2SAT 99
== END 2021-06-15 12:38 | disposition left against medical advice (07) ==
PROVIDERS: Family Medicine; Emergency Provider Physician Assistant; PCP Family Medicine Adult Medicine
DX: F10.920 Alcohol use, unspecified with intoxication, uncomplicated (principal); E87.2 Acidosis; E66.9 Obesity, unspecified; Z68.41 Body mass index [BMI] 40.0-44.9, adult; Z53.29 Procedure and treatment not carried out because of patient's decision for other reasons
CPT/HCPCS: 36415; 36600; 70450; 71045; 80051; 80053; 80306; 80307; 81001; 82330; 82805; 85025; 93005; 99283

== ENCOUNTER 2021-06-17 11:02 | Inpatient (IN) | payer MEDICAID, SELFPAY ==
[2021-06-17] VITALS (7 sets, daily range): BP systolic 109–154; BP diastolic 51–93; PULSE 110–121; RESP 15–22; TEMP 36.7; O2SAT 95–99
--- NOTE | 2021-06-17 11:48 | XR_ITS ---
WS: [id number] Exam: XR chest 1V portable [id number] Date/Time of Exam: 06/17/2021 11:48 AM Reason For Exam: AMS Comparison 06/15/2021 Findings: The lungs are clear and fully expanded. Costophrenic angles are sharp. No infiltrates. Bronchovascula r relief appears normal. Cardiac silhouette is unremarkable. Bony elements are intact. XR/XR chest 1V portable [id number] IMPRESSION: Unremarkable chest radiograph.
--- NOTE | 2021-06-17 11:57 | W.ED.AMS ---
HPI - Altered Mental Status General: Chief Complaint: ER Hold Stated Complaint: AMS HX ETOH Time Seen by Provider: 06/17/21 11:15 Source: patient and EMS Mode of arrival: EMS Limitations: altered mental status History of Present Illness: HPI narrative: This 51-year-old female patient is a frequent visitor to the emergency department usually with alcohol intoxication. She was brought in today by EMS after she was found in the brush with 2 bottles of hard liquor being held onto by her and the patient was altered probably from intoxication. No one knows how long she has been in the brush for. She was seen in this emergency department 2 days ago for alcohol intoxication and was discharged. She is not coherent and is unable to give me history. She has lots of superficial scratches and bruises. In the ambulance her glucose was checked and it was in the 130s. MD complaint: altered mental status and intoxication Onset (ago): unknown Context: alcohol abuse Treatments prior to arrival: IV fluid Review of Systems General: Reports: ROS unobtainable due to mental status [facility] ED PFSH: Medical History (Updated 06/28/21 @ 21:46 by Erwin Liu MD, [facility]) Alcohol dependence Has been prescribed antabuse Anxiety Arthritis of right knee Bipolar disorder Chronic post-traumatic stress disorder (PTSD) Depressive disorder History of Wernicke's encephalopathy Hx of cholecystitis Iron deficiency anemia Obesity (BMI 35.0-39.9 without comorbidity) Psychiatric care Recurrent pancreatitis Right elbow tendinitis Suicidal thoughts in the past Surgical History History of Hx of gastric bypass Hx of hernia repair Hx of tubal ligation Hx of unilateral salpingectomy Right Family History Other Diabetes Heart disease Social History Smoking and tobacco status: never smoked Alcohol intake: current History of recent travel: No Current gender identity: Female Female Reproductive History: Date of last menstrual period: 05/25/21 Physical Exam Const: COMMON NORMALS: no acute distress, average body habitus, no limitations, healthy appearing and well nourished HENMT: COMMON NORMALS: normocephalic, atraumatic and moist oral mucous membranes HEAD & SCALP: normocephalic and atraumatic Eye: COMMON NORMALS: Equal, round and reactive pupils present, EOMs intact bilaterally, conjunctivae normal and no scleral icterus CONJUNCTIVA: Yes conjunctivae normal PUPIL: Yes Equal, round and reactive pupils present Neck/C-Spine: COMMON NORMALS: no meningeal signs and no JVD Resp: COMMON NORMALS: normal respiratory effort, No retractions, No use of accessory muscles, clear to auscultation bilaterally and percussion normal AUSCULTATION: clear to auscultation bilaterally PERCUSSION: percussion normal Cardio: COMMON NORMALS: no JVD, regular rate, regular rhythm, S1 normal heart sound present, S2 normal heart sound present, No gallops present (Cardio), No clicks present (Cardio), No murmurs present (Cardio), No rub (Cardio) and Peripheral pulses 2+ throughout RATE: regular rate RHYTHM: regular rhythm HEART SOUNDS: S1 normal heart sound present and S2 normal heart sound present PERIPHERAL PULSES: Peripheral pulses 2+ throughout GI: COMMON NORMALS: Normal to inspection, nondistended, normoactive bowel sounds present, Soft to palpation, non-tender, No hepatosplenomegaly present, no masses and no bruits PALPATION: Yes Soft to palpation and Yes No hepatosplenomegaly present Extremity: COMMON NORMALS: normal to inspection, full ROM, capillary refill normal, no calf tenderness and no pedal edema Neuro: SENSORIUM/ORIENTATION: Yes somnolent MENINGEAL SIGNS: Yes no meningeal signs Skin: COMMON NORMALS: turgor normal, no jaundice, no petechiae and no mottling GENERAL SKIN EXAM: turgor normal TRAUMA: abrasion WOUNDS: Yes wounds noted (Multiple superficial scratch gloria all over her skin) Course Consultations: Consultation #1: Called the hospitalist, Dr. Hernandez. Did not answer, left a message Time: 13:30 Consultation #2: Discussed the patient with Dr. Hernandez, hospitalist and he kindly accepted the patient to his service. Time: 13:44 Vital Signs: Vital signs: Vital Signs Temperature 98.3 F 06/22/21 11:43 Pulse Rate 90 06/22/21 11:43 Respiratory Rate 20 H 06/22/21 11:43 Blood Pressure 119/94 06/22/21 11:43 Pulse Oximetry 98 06/22/21 11:43 MDM - Altered Mental Status MDM Narrative: Medical decision making narrative: This 51 year old female patient who is well known to the hospital, she has a history of alcohol abuse, depression, PTSD, who was brought in to the ED in alcohol intoxication. She was found in the brushes with multiple bottles of liquor and with multiple abrasions and bruises. She was altered, not making much sense. On laboratory evaluation she has a significantly elevated alcohol level, rhabdomyolysis with acute kidney injury, lactic acidosis, and a UTI. Because of her state of intoxication and medical complications with concerns for usp medical adverse effect she is in no condition to make informed medical decisions. She would like to leave against medical advise. But she is not capable to make decisions at this time, so she is placed on a 96 hour hold and will be medically managed, and also to be cleared by psychiatry when she is sober. She will need ICU care and will be managed in the ED until a bed is available. Medical Records: Attestation: I reviewed the patient's medical records. Lab Data: Attestation: I reviewed the patient's lab results. Labs: Lab Results 06/17/21 06/17/21 06/17/21 Range/Units 12:19 12:19 12:19 WBC 11.5 H (4.0-10.0) 10^3/ uL RBC 4.86 (4.1-5.3) 10^6/u L Hgb 14.8 (11.5-15.3) g/dL Hct 44.9 (37.0-47.0) % MCV 92.4 (81-99) fl MCH 30.5 (28.0-34.0) pg MCHC 33.0 (30.0-36.0) g/dL RDW 13.6 (12.1-15.1) % Plt Count 272 (130-400) 10^3/c mm MPV 9.1 (7.4-10.4) fL Neut % (Auto) 79.6 % Lymph % (Auto) 8.0 % [place] % (Auto) 11.4 % Eos % (Auto) 0.3 % Baso % (Auto) 0.4 % Neut # (Auto) 9.12 H (1.8-7.7) 10^3/u L Lymph # (Auto) 0.9 (0.8-4.8) 10^3/u L [place] # (Auto) 1.3 H (0.2-0.9) 10^3/u L Eos # (Auto) 0.0 (0.0-0.8) 10^3/u L Baso # (Auto) 0.1 (0.0-0.1) 10^3/u L Nucleated RBC % (a uto) 0 % Nucleated RBCs # 0.0 /100WBC Sodium 142 (136-145) mmol/L Potassium 4.4 (3.5-5.1) mmol/L Chloride 96 L (98-107) mmol/L Carbon Dioxide 15 L (22-29) mmol/L Anion Gap 35.4 H (5-19) BUN 27 H (6-20) mg/dL Creatinine 1.5 H (0.5-0.9) mg/dL GFR Calculation 36.9 L (90-130) mL/min Glucose 130 H (65-115) mg/dL Estimat Average Gl ucose Hemoglobin A1c (4.0-6.0) % Calculated Osmolal ity 301 H (285-295) mOsm/k g Lactic Acid 3.6 H (0.5-2.2) mmol/L Calcium 7.4 L (8.5-10.5) mg/dL Phosphorus (2.5-4.5) mg/dL Magnesium (1.7-2.3) mg/dL Total Bilirubin 1.4 H (0.15-1.2) mg/dL AST 108 H (0-32) U/L ALT 116 H (0-33) U/L Alkaline Phosphata se 190 H (35-105) IU/L Creatine Kinase 2577 H* (26-192) U/L C-Reactive Protein 2.9 (0.0-4.9) mg/L Total Protein 7.4 (6.6-8.7) g/dL Albumin 4.0 (3.5-5.2) g/dL Globulin 3.4 (1.3-4.6) g/dL Lipase (13-60) U/L Procalcitonin (0-0.5) ng/mL TSH (0.27-4.20) uIU/ mL Urine Color (Yellow) Urine Appearance (CLEAR) Urine pH (5-7) Ur Specific Gravit y (1.005-1.030) Urine Protein (Negative) Urine Glucose (UA) (Normal) Urine Ketones (Negative) Urine Blood (Negative) Urine Nitrate (Negative) Urine Bilirubin (Negative) Urine Urobilinogen (Negative) mg/dL Ur Leukocyte Marlys ase (Negative) Urine RBC (0-2) /hpf Urine WBC (0-5) /hpf Ur Squamous Epith Cells (0-5) /hpf Ur Transition Epit h Cell /hpf Amorphous Sediment Urine Bacteria (NONE) /hpf Urine Mucus /hpf Salicylates < 0.3 L (3-10) mg/dL Urine Opiates Scre en (Negative) ng/mL Acetaminophen < 5.0 L (10-30) ug/mL Ur Barbiturates Sc reen (Negative) ng/mL Ur Phencyclidine S crn (Negative) ng/mL Ur Amphetamines Sc reen (Negative) ng/mL U Benzodiazepines Scrn (Negative) ng/mL Urine Cocaine Scre en (Negative) ng/mL U Marijuana (THC) Screen (Negative) ng/mL Ethyl Alcohol 366 H* (0-10) mg/dL Misc Test Referenc e 06/17/21 06/17/21 06/17/21 Range/Units 12:19 12:19 12:19 WBC (4.0-10.0) 10^3/ uL RBC (4.1-5.3) 10^6/u L Hgb (11.5-15.3) g/dL Hct (37.0-47.0) % MCV (81-99) fl MCH (28.0-34.0) pg MCHC (30.0-36.0) g/dL RDW (12.1-15.1) % Plt Count (130-400) 10^3/c mm MPV (7.4-10.4) fL Neut % (Auto) % Lymph % (Auto) % [place] % (Auto) % Eos % (Auto) % Baso % (Auto) % Neut # (Auto) (1.8-7.7) 10^3/u L Lymph # (Auto) (0.8-4.8) 10^3/u L [place] # (Auto) (0.2-0.9) 10^3/u L Eos # (Auto) (0.0-0.8) 10^3/u L Baso # (Auto) (0.0-0.1) 10^3/u L Nucleated RBC % (a uto) % Nucleated RBCs # /100WBC Sodium (136-145) mmol/L Potassium (3.5-5.1) mmol/L Chloride (98-107) mmol/L Carbon Dioxide (22-29) mmol/L Anion Gap (5-19) BUN (6-20) mg/dL Creatinine (0.5-0.9) mg/dL GFR Calculation (90-130) mL/min Glucose (65-115) mg/dL Estimat Average Gl ucose 94 Hemoglobin A1c 4.9 (4.0-6.0) % Calculated Osmolal ity (285-295) mOsm/k g Lactic Acid (0.5-2.2) mmol/L Calcium (8.5-10.5) mg/dL Phosphorus 4.2 (2.5-4.5) mg/dL Magnesium 1.5 L (1.7-2.3) mg/dL Total Bilirubin (0.15-1.2) mg/dL AST (0-32) U/L ALT (0-33) U/L Alkaline Phosphata se (35-105) IU/L Creatine Kinase (26-192) U/L C-Reactive Protein 2.9 (0.0-4.9) mg/L Total Protein (6.6-8.7) g/dL Albumin (3.5-5.2) g/dL Globulin (1.3-4.6) g/dL Lipase 15 (13-60) U/L Procalcitonin 0.83 H (0-0.5) ng/mL TSH 0.38 (0.27-4.20) uIU/ mL Urine Color (Yellow) Urine Appearance (CLEAR) Urine pH (5-7) Ur Specific Gravit y (1.005-1.030) Urine Protein (Negative) Urine Glucose (UA) (Normal) Urine Ketones (Negative) Urine Blood (Negative) Urine Nitrate (Negative) Urine Bilirubin (Negative) Urine Urobilinogen (Negative) mg/dL Ur Leukocyte Marlys ase (Negative) Urine RBC (0-2) /hpf Urine WBC (0-5) /hpf Ur Squamous Epith Cells (0-5) /hpf Ur Transition Epit h Cell /hpf Amorphous Sediment Urine Bacteria (NONE) /hpf Urine Mucus /hpf Salicylates (3-10) mg/dL Urine Opiates Scre en (Negative) ng/mL Acetaminophen (10-30) ug/mL Ur Barbiturates Sc reen (Negative) ng/mL Ur Phencyclidine S crn (Negative) ng/mL Ur Amphetamines Sc reen (Negative) ng/mL U Benzodiazepines Scrn (Negative) ng/mL Urine Cocaine Scre en (Negative) ng/mL U Marijuana (THC) Screen (Negative) ng/mL Ethyl Alcohol (0-10) mg/dL Misc Test Referenc e 06/17/21 06/17/21 06/17/21 Range/Units 12:19 12:36 12:36 WBC (4.0-10.0) 10^3/ uL RBC (4.1-5.3) 10^6/u L Hgb (11.5-15.3) g/dL Hct (37.0-47.0) % MCV (81-99) fl MCH (28.0-34.0) pg MCHC (30.0-36.0) g/dL RDW (12.1-15.1) % Plt Count (130-400) 10^3/c mm MPV (7.4-10.4) fL Neut % (Auto) % Lymph % (Auto) % [place] % (Auto) % Eos % (Auto) % Baso % (Auto) % Neut # (Auto) (1.8-7.7) 10^3/u L Lymph # (Auto) (0.8-4.8) 10^3/u L [place] # (Auto) (0.2-0.9) 10^3/u L Eos # (Auto) (0.0-0.8) 10^3/u L Baso # (Auto) (0.0-0.1) 10^3/u L Nucleated RBC % (a uto) % Nucleated RBCs # /100WBC Sodium (136-145) mmol/L Potassium (3.5-5.1) mmol/L Chloride (98-107) mmol/L Carbon Dioxide (22-29) mmol/L Anion Gap (5-19) BUN (6-20) mg/dL Creatinine (0.5-0.9) mg/dL GFR Calculation (90-130) mL/min Glucose (65-115) mg/dL Estimat Average Gl ucose Hemoglobin A1c (4.0-6.0) % Calculated Osmolal ity (285-295) mOsm/k g Lactic Acid (0.5-2.2) mmol/L Calcium (8.5-10.5) mg/dL Phosphorus (2.5-4.5) mg/dL Magnesium (1.7-2.3) mg/dL Total Bilirubin (0.15-1.2) mg/dL AST (0-32) U/L ALT (0-33) U/L Alkaline Phosphata se (35-105) IU/L Creatine Kinase (26-192) U/L C-Reactive Protein (0.0-4.9) mg/L Total Protein (6.6-8.7) g/dL Albumin (3.5-5.2) g/dL Globulin (1.3-4.6) g/dL Lipase (13-60) U/L Procalcitonin (0-0.5) ng/mL TSH (0.27-4.20) uIU/ mL Urine Color Dark yellow (Yellow) Urine Appearance Cloudy (CLEAR) Urine pH 5 (5-7) Ur Specific Gravit y 1.025 (1.005-1.030) Urine Protein 1+ H (Negative) Urine Glucose (UA) Norm (Normal) Urine Ketones 1+ H (Negative) Urine Blood 3+ H (Negative) Urine Nitrate Negative (Negative) Urine Bilirubin 1+ H (Negative) Urine Urobilinogen 4 H (Negative) mg/dL Ur Leukocyte Marlys ase 1+ H (Negative) Urine RBC 5-10 H (0-2) /hpf Urine WBC 10-15 H (0-5) /hpf Ur Squamous Epith Cells 15-25 H (0-5) /hpf Ur Transition Epit h Cell 0-4 /hpf Amorphous Sediment Not Reportable Urine Bacteria 4+ H (NONE) /hpf Urine Mucus 1+ /hpf Salicylates (3-10) mg/dL Urine Opiates Scre en Negative (Negative) ng/mL Acetaminophen (10-30) ug/mL Ur Barbiturates Sc reen Negative (Negative) ng/mL Ur Phencyclidine S crn Negative (Negative) ng/mL Ur Amphetamines Sc reen Negative (Negative) ng/mL U Benzodiazepines Scrn Negative (Negative) ng/mL Urine Cocaine Scre en Negative (Negative) ng/mL U Marijuana (THC) Screen Negative (Negative) ng/mL Ethyl Alcohol (0-10) mg/dL Misc Test Referenc e See comment Imaging Data^: CT Head: Attestation: I personally reviewed and interpreted this imaging study as follows: Radiologist's impression: [address] [id number] Scan ReportSigned Patient: Yeimy Perry #: [id number]: 1970Acct#:[id number]/Sex: 51 / FADM Date: 06/17/21Loc: ERRoom/Bed:Attending Dr: Ordering Provider/Ordering MD: Erwin Liu MD, [facility] Date of Service: 06/17/21 Procedure(s): CT head wo con* [id number] Accession Number(s): [id number] Report Number: [id number] WS: [id number] CT HEAD NONCONTRAST HISTORY: AMS TECHNIQUE: Contiguous axial imaging performed through the brain in 2.5 mm imaging. Bone and soft tissue windows. Sagittal and coronal reformats reviewed. All CT scans at [facility] use at least one of these dose optimization techniques: automated exposure control; mA and/or kV adjustment per patient size (includes targeted exams where dose is matched to clinical indication); or iterative reconstruction. DLP: 1848.04 mGy.cm COMPARISON: 06/15/2021 Extensive artifact through the brain from motion. No acute hemorrhage is identified. Small areas of hemorrhage or subtle edema would be obscured with this amount of motion. Mild atrophy and mild chronic ischemic disease. Ventricles: Cerebellar tonsils are very mildly low-lying but unchanged. Paranasal sinuses: Minimal mucosal thickening in the sinuses. No air-fluid levels. Mastoid air cells: Well pneumatized. Calvarium and scalp: Skull is intact with no soft tissue edema or swelling. CT/CT head wo con* [id number] IMPRESSION: 1. Quality of this examination is compromised by motion. 2. No evidence for an acute hemorrhage or edema taking into consideration the amount of motion. Dictated By:Cristiane Olvera DOSigned By:Cristiane Olvera DOSigned Date/Time:06/17/21 1316DD/ 1313 CXR: Attestation: I personally reviewed and interpreted this imaging study as follows: Radiologist's impression: [place] [id number] [facility], [place] [address]LJcq ReportSigned Patient: Yeimy Perry #: [id number]: [id number]#:[id number]/Sex: 51 / FADM Date: 06/17/21Loc: ERRoom/Bed:Attending Dr: Ordering Provider/Ordering MD: Erwin Liu MD, [facility] Date of Service: 06/17/21 Procedure(s): XR chest 1V portable [id number] Accession Number(s): [id number] Report Number: [id number] WS: [id number] Exam: XR chest 1V portable [id number] Date/Time of Exam: 06/17/2021 11:48 AM Reason For Exam: AMS Comparison 06/15/2021 Findings: The lungs are clear and fully expanded. Costophrenic angles are sharp. No infiltrates. Bronchovascular relief appears normal. Cardiac silhouette is unremarkable. Bony elements are intact. XR/XR chest 1V portable [id number] IMPRESSION: Unremarkable chest radiograph. Dictated By:Barbosaigned By:Chichi Logan Date/Time:06/17/21 1202DD/ 1201 Discharge Plan Discharge Patient Disposition: Admitted As Inpatient Admit Provider: Silviano Hernandez Clinical Impression: Rhabdomyolysis, Acute kidney injury, Alcohol intoxication, Acidosis, lactic Condition: Stable Discharge Diet: Usual diet Discharge Activity: Resume usual activity Coding Level of Care Code ED Job Molder for Chg Fwd Exam Comprehensive
--- NOTE | 2021-06-17 12:05 | CT_ITS ---
WS: [id number] CT HEAD NONCONTRAST HISTORY: AMS TECHNIQUE: Contiguous axial imaging performed through the brain in 2.5 mm imaging. Bone and soft tiss ue windows. Sagittal and coronal reformats reviewed. All CT scans at [facility] use at ast one of these dose optimization techniques: automated exposure control; mA and/or kV adjustment pe r patient size (includes targeted exams where dose is matched to clinical indication); or iterative r econstruction. DLP: 1848.04 mGy.cm COMPARISON: 06/15/2021 Extensive artifact through the brain from motion. No acute hemorrhage is identified. Small areas of h emorrhage or subtle edema would be obscured with this amount of motion. Mild atrophy and mild chronic ischemic disease. Ventricles: Cerebellar tonsils are very mildly low-lying but unchanged. Paranasal sinuses: Minimal mucosal thickening in the sinuses. No air-fluid levels. Mastoid air cells: Well pneumatized. Calvarium and scalp: Skull is intact with no soft tissue edema or swelling. CT/CT head wo con* [id number] IMPRESSION: 1. Quality of this examination is compromised by motion. 2. No evidence for an acute hemorrhage or edema taking into consideration the amount of motion.
--- NOTE | 2021-06-17 12:20 | PC.NURSE ---
patient removed iv from right wrist. no bleeding noted. bandaid applied
[2021-06-17 12:29] LABS: Basophils # 0.1 10^3/uL (0.0-0.1); Basophils % 0.4 %; Eosinophils % 0.3 %; Hematocrit 44.9 % (37.0-47.0); Hemoglobin 14.8 g/dL (11.5-15.3); Lymphocytes # 0.9 10^3/uL (0.8-4.8); Mean Corpuscular Hemoglobin 30.5 pg (28.0-34.0); Mean Corpuscular Volume 92.4 fl (81-99); Mean Platelet Volume 9.1 fL (7.4-10.4); Monocytes # 1.3 10^3/uL (0.2-0.9); Monocytes % 11.4 %; Neutrophils # 9.12 10^3/uL (1.8-7.7); Neutrophils % 79.6 %; Nucleated Red Blood Cells % 0 %; Platelet Count 272 10^3/cmm (130-400); Red Blood Count 4.86 10^6/uL (4.1-5.3); Red Cell Distribution Width 13.6 % (12.1-15.1); White Blood Count 11.5 10^3/uL (4.0-10.0)
[2021-06-17 12:42] LABS: Alanine Aminotransferase 116 U/L (0-33); Alkaline Phosphatase 190 IU/L (35-105); Anion Gap 35.4 (5-19); Aspartate Amino Transferase 108 U/L (0-32); Blood Urea Nitrogen 27 mg/dL (6-20); C Reactive Protein 2.9 mg/L (0.0-4.9); Calcium 7.4 mg/dL (8.5-10.5); Carbon Dioxide 15 mmol/L (22-29); Chloride 96 mmol/L (98-107); Globulin 3.4 g/dL (1.3-4.6); Glomerular Filtration Rate 36.9 mL/min (90-130); Glucose 130 mg/dL (65-115); Osmolality Calculated 301 mOsm/kg (285-295); Potassium 4.4 mmol/L (3.5-5.1); Sodium 142 mmol/L (136-145); Total Bilirubin 1.4 mg/dL (0.15-1.2); Total Protein 7.4 g/dL (6.6-8.7)
[2021-06-17 12:43] LABS: Acetaminophen < 5.0 ug/mL (10-30); Salicylate < 0.3 mg/dL (3-10)
[2021-06-17 12:44] LABS: Alcohol Level 366 mg/dL (0-10)
[2021-06-17 12:49] LABS: Lactic Sepsis W/Reflex 3.6 mmol/L (0.5-2.2)
[2021-06-17 12:51] LABS: Blood Urine 3+ (Negative); Glucose Urine UA Norm (Normal); Ketones Urine 1+ (Negative); Nitrate Urine Negative (Negative); Protein Urine 1+ (Negative); Specific Gravity, Urine 1.025 (1.005-1.030); Urine Appearance Cloudy (CLEAR); Urine Color Dark Yellow (Yellow); pH Urine 5 (5-7)
[2021-06-17 12:52] LABS: Add Urine Microscopic? YES; Bilirubin Urine 1+ (Negative); Leukocyte Esterase Urine 1+ (Negative); Urobilinogen Urine 4 mg/dL (Negative)
[2021-06-17 12:59] LABS: Amphetamines Screen Urine Negative (Negative); Barbiturates Screen Urine Negative (Negative); Benzodiazepines Screen Urine Negative (Negative); Cocaine Screen Urine Negative (Negative); Opiate Screen Urine Negative (Negative); PCP Screen Urine Negative (Negative); THC Screen Urine Negative (Negative)
[2021-06-17 13:01] LABS: Creatine Phosphokinase 2577 U/L (26-192)
[2021-06-17] MEDS: sodium chloride 0.9% 1,000 ML 999 ML IV ×2 (13:17→21:02)
[2021-06-17 13:21] LABS: Add Urine Culture? No; Bacteria Urine 4+ /hpf; Mucus Urine 1+ /hpf; Squamous Epithelial Cell Urine 15-25 /hpf (0-5); Transitional Epi Cells Urine 0-4 /hpf
--- NOTE | 2021-06-17 14:09 | US_ITS ---
WS: [id number] RENAL ULTRASOUND HISTORY: korey COMPARISON: None available. TECHNIQUE: 2-D and color Doppler imaging of the kidney submitted. Right kidney: 11.2 cm x 5.6 cm x 5.1 cm. Normal echogenicity with no hydronephrosis or mass. Left kidney: 12.2 cm x 5.1 cm x 4.7 cm. Normal echogenicity with no hydronephrosis or mass. Aorta: Normal. Urinary Bladder: Normal distention. US/US renal BI* [id number] IMPRESSION: Normal renal ultrasound.
[2021-06-17 14:13] LABS: Reflex Lactate Order REFLEX LACTIC ORDERD
[2021-06-17] MEDS: LORazepam 2 mg/mL INJ 1 mL IVP ×2 (14:15→21:01)
[2021-06-17] MEDS: haloperidol inj 5 mg/mL INJ 1 mL IM (14:15)
--- NOTE | 2021-06-17 14:29 | PM.HP ---
Providers/Chief Complaint Primary Care Provider: Da Myles MD Chief Complaint: AMS HX ETOH History of Present Illness Yeimy Perry is a 51 year old female with a past medical history of depression, anxiety, suicidal ideation, alcoholism, alcohol withdrawal, who presents to [facility] due to concerns for alcohol intoxication. She was found by EMS in the brush, with 2 bottles of hard liquor, currently patient is alert to person, not to place, not to time, she wants to leave AGAINST MEDICAL ADVICE. I asked her when her last drink was, she does not know, I asked her if she has any complaints, she tells me she wants to leave the hospital that is her only complaint. She does deny abdominal pain, denies any flank pain, she does follow commands, denies any suicidal and homicidal ideation, denies seeing or hearing things are not there. Work-up in the emergency room showed white blood cell count 11.5, lactic acid of 3.6, UA indicated of a UTI, blood alcohol level 366, anion gap 35.4, CPK 2577, creatinine 1.5. I advised patient that currently she has a's significant evidence of rhabdomyolysis, and acute kidney injury, she has a risk of worsening kidney failure, being put on dialysis, significant morbidity mortality associated, in addition she has a significant bladder infection with elevated lactic acid, which could be indicated of sepsis,. In addition she has been hospitalized multiple times for severe alcohol withdrawal, managed in the ICU. However patient does not seem to understand the severity of her illness currently, does not understand the significance of what I am telling her, she tells me she wants to go home. Patient was here on 06/15/2021, she actually eloped from the ER. ER physician is going to fill out a 96-hour hold, patient will require management in ICU, currently we do not have ICU beds, for alcohol withdrawal. We will manage her in the emergency room, when medically stable can move the general medical floors and eventually to the psychiatry service. I did also talk to Dr. Kwong will see her on consult. Review of Systems Const: Denies: fever(s) Card: Denies: chest pain Resp: Denies: dyspnea GI: Denies: abdominal pain, nausea or vomiting : Denies: flank pain Skin/Breast: Reports: rash Psych: Denies: visual hallucinations, auditory hallucinations, tactile hallucinations, suicidal ideation or homicidal ideation Medications/Allergies Home Medications Medication Instructions Recorded Confirmed Last Taken Type ferrous sulfate 325 mg (65 mg 325 mg PO BID 03/14/21 06/17/21 Unknown History iron) tablet hydroxyzine pamoate 50 mg capsule 50 mg PO BEDTIME PRN #30 cap 03/14/21 06/17/21 Unknown Rx chlordiazepoxide HCl 10 mg PO Q6H PRN #20 cap 05/29/21 06/17/21 Unknown Rx multivitamin with folic acid 400 1 tab PO DAILY 30 Days #30 tab 06/09/21 06/17/21 Unknown Rx mcg tablet fluoxetine 20 mg PO DAILY 06/15/21 06/17/21 Unknown History meloxicam 15 mg PO BEDTIME 06/15/21 06/17/21 Unknown History ziprasidone HCl 80 mg PO DAILY 06/15/21 06/17/21 Unknown History Allergies Allergy/AdvReac Type Severity Reaction Status Date / Time acetaminophen [From [place]] AdvReac Mild ADR-Itching Verified 06/14/21 13:14 hydrocodone [From [place]] AdvReac Mild ADR-Itching Verified 06/14/21 13:14 PFSH Acute PFSH: Medical History Alcohol dependence Has been prescribed antabuse Anxiety Arthritis of right knee Bipolar disorder Chronic post-traumatic stress disorder (PTSD) Depression Depressive disorder History of anemia History of Wernicke's encephalopathy Hx of cholecystitis Iron deficiency anemia Obesity (BMI 35.0-39.9 without comorbidity) Psychiatric care Recurrent pancreatitis Right elbow tendinitis Suicidal thoughts in the past Surgical History History of Hx of gastric bypass Hx of hernia repair Hx of tubal ligation Hx of unilateral salpingectomy Right Family History Other Diabetes Heart disease Social History Smoking and tobacco status: never smoked Alcohol intake: current History of recent travel: No Current gender identity: Female Female Reproductive History: Date of last menstrual period: 05/25/21 Vitals/I&O/Wt Last Vital Signs Temp 98.1 F 06/17/21 11:17 Pulse 112 H 06/17/21 14:00 Resp 18 06/17/21 14:00 BP 154/83 06/17/21 14:00 Pulse Ox 95 06/17/21 14:00 Physical Exam Const: COMMON NORMALS: no acute distress EXAM LIMITATIONS: altered mental status GENERAL APPEARANCE: disheveled ORIENTATION/CONSCIOUSNESS: Yes awake, Yes oriented to person and Yes confused; not oriented to place and not oriented to time OTHER: Smells of alcohol HENMT: COMMON NORMALS: normocephalic HEAD & SCALP: normocephalic Eye: COMMON NORMALS: Equal, round and reactive pupils present and EOMs intact bilaterally GENERAL EYE: appearance normal, both eyes and all related structures PUPIL: Yes Equal, round and reactive pupils present Neck/C-Spine: COMMON NORMALS: full ROM and no lymphadenopathy THYROID: Thyroid normal Lymph: LYMPHATIC: no lymphadenopathy noted Resp: COMMON NORMALS: normal respiratory effort, No retractions, No use of accessory muscles and clear to auscultation bilaterally AUSCULTATION: clear to auscultation bilaterally Cardio: COMMON NORMALS: regular rhythm, S1 normal heart sound present, S2 normal heart sound present, No gallops present (Cardio), No clicks present (Cardio) and No murmurs present (Cardio) RATE: tachycardic RHYTHM: regular rhythm HEART SOUNDS: S1 normal heart sound present and S2 normal heart sound present GI: COMMON NORMALS: Normal to inspection, nondistended, normoactive bowel sounds present, Soft to palpation and non-tender Extremity: COMMON NORMALS: no pedal edema Neuro: COMMON NORMALS: moves all extremities and no focal motor deficits OTHER: Refuses to follow neurologic testing Skin: NARRATIVE SKIN EXAM: Multiple skin abrasions, rash, throughout back, bilateral extremities, arms Data : 06/17/21 12:19 06/17/21 12:19 A&P Assessment and plan (1) Acute alcohol intoxication: -Monitor for alcohol withdrawal -We will require ICU level care, currently monitor in the emergency room -[place] protocol -Ativan -Scheduled Librium -Thiamine, folic acid, banana bag -Full code -Heparin for DVT prophylaxis -Multiple skin abrasions, will have to monitor Status: Acute Qualifiers: Complication of substance-induced condition: uncomplicated Qualified Code(s): F10.920 - Alcohol use, unspecified with intoxication, uncomplicated (2) Alcoholic ketoacidosis: -Monitor anion gap, monitor acidosis, will get methanol and ethylene glycol levels Status: Acute (3) Alcohol use disorder, severe, dependence: Status: Chronic (4) Obesity (BMI 35.0-39.9 without comorbidity): Status: Acute (5) Rhabdomyolysis: Likely secondary to prolonged immobility, monitor CPK, monitor creatinine Status: Acute (6) Acute kidney injury: Start gentle IV hydration, monitor creatinine, monitor urine output Status: Acute (7) Urinary tract infection: Start Zosyn, monitor urine cultures, blood cultures Status: Acute (8) Elevated lactic acid level: Status: Acute Additional A&P Information Currently on a 96-hour hold, Has a history of eloping One-on-one sitter Attestations Medical Necessity Statement*: Patient requires hospitalization, inpatient, greater than 2 midnights, for alcohol withdrawal, rhabdo, UTI, sepsis Coding Level of Care Code 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
[2021-06-17 14:50] LABS: C Reactive Protein 2.9 mg/L (0.0-4.9); Lipase 15 U/L (13-60); Magnesium 1.5 mg/dL (1.7-2.3); Phosphorus 4.2 mg/dL (2.5-4.5)
[2021-06-17 14:54] LABS: Procalcitonin 0.83 ng/mL (0-0.5)
[2021-06-17] MEDS: folic acid 1 MG, multivitamin inj 10 ML, thiamine 100 MG in sodium chloride 0.9% 1,000 ML 252.8 MG IV (15:02)
[2021-06-17 15:27] LABS: Estmated Average Glucose 94; Hemoglobin A1C 4.9 % (4.0-6.0)
[2021-06-17] MEDS: chlordiazePOXIDE 25 mg Capsule PO (15:45)
[2021-06-17 16:51] LABS: Lactic Acid level (Lactate) 3.5 mmol/L (0.5-2.2)
[2021-06-17] MEDS: sodium chloride 0.9% 1,000 ML 100 ML IV (21:02)
[2021-06-18] VITALS (12 sets, daily range): BP systolic 143–205; BP diastolic 74–105; PULSE 79–108; RESP 16–21; TEMP 36.5–37.2; O2SAT 93–99
[2021-06-18 00:27] LABS: Thyroid Stimulating Hormone 0.38 uIU/mL (0.27-4.20)
--- NOTE | 2021-06-18 01:28 | PC.NURSE ---
Inpatient dr called for order clarification,
--- NOTE | 2021-06-18 01:31 | PC.NURSE ---
spoke with 11pm medications are fine to hold until in the morning.
[2021-06-18] MEDS: LORazepam 2 mg/mL INJ 1 mL IVP (02:11)
[2021-06-18] MEDS: chlordiazePOXIDE 25 mg Capsule PO ×4 (04:15→21:18)
[2021-06-18] MEDS: piperacillin-tazobactam 3.375 GM in sodium chloride 0.9% (plus) 50 ML IV ×2 (04:58→17:03)
--- NOTE | 2021-06-18 07:03 | PC.NURSE ---
report to kirill hooper
--- NOTE | 2021-06-18 07:08 | PC.NURSE ---
Received report assumed care. No changes noted. Continue to monitor.
--- NOTE | 2021-06-18 07:15 | PC.NURSE ---
Resting in bed, sitter at bedside. Dr approved to let sleep and not to wake up. On monitor and vital are stable.
--- NOTE | 2021-06-18 07:17 | PC.NURSE ---
Sitter at doorway
[2021-06-18] MEDS: multivitamin therapeutic Tablet 1 TAB PO (09:22)
[2021-06-18] MEDS: ferrous sulfate EC 325 mg Tablet PO ×2 (09:22→17:03)
[2021-06-18] MEDS: heparin 5,000 unit/mL INJ 1 mL 5000 UNIT SUBCUT ×2 (09:23→21:18)
[2021-06-18] MEDS: pantoprazole 40 mg SDV IVP ×2 (09:23→17:02)
[2021-06-18] MEDS: folic acid 1 mg Tablet PO (09:31)
[2021-06-18] MEDS: ziprasidone hcl 40 mg Capsule 80 MG PO (09:31)
[2021-06-18] MEDS: thiamine 100 mg Tablet PO (09:31)
[2021-06-18] MEDS: fluoxetine 20 mg Capsule PO (09:32)
[2021-06-18 09:33] LABS: Basophils % 0.4 %; Eosinophils % 0.3 %; Hematocrit 34.9 % (37.0-47.0); Hemoglobin 11.6 g/dL (11.5-15.3); Lymphocytes # 1.1 10^3/uL (0.8-4.8); Lymphocytes % 14.4 %; Mean Corpuscular HGB Conc 33.2 g/dL (30.0-36.0); Mean Corpuscular Hemoglobin 31.1 pg (28.0-34.0); Mean Corpuscular Volume 93.6 fl (81-99); Mean Platelet Volume 9.5 fL (7.4-10.4); Monocytes # 0.8 10^3/uL (0.2-0.9); Monocytes % 10.8 %; Neutrophils # 5.31 10^3/uL (1.8-7.7); Neutrophils % 72.9 %; Nucleated Red Blood Cells % 0 %; Platelet Count 143 10^3/cmm (130-400); Red Blood Count 3.73 10^6/uL (4.1-5.3); Red Cell Distribution Width 13.7 % (12.1-15.1); White Blood Count 7.3 10^3/uL (4.0-10.0)
[2021-06-18 10:02] LABS: Alanine Aminotransferase 74 U/L (0-33); Albumin Level 3.3 g/dL (3.5-5.2); Alkaline Phosphatase 136 IU/L (35-105); Anion Gap 17.9 (5-19); Aspartate Amino Transferase 55 U/L (0-32); Blood Urea Nitrogen 14 mg/dL (6-20); Calcium 7.7 mg/dL (8.5-10.5); Carbon Dioxide 23 mmol/L (22-29); Chloride 96 mmol/L (98-107); Globulin 2.7 g/dL (1.3-4.6); Glomerular Filtration Rate 76.2 mL/min (90-130); Glucose 129 mg/dL (65-115); Magnesium 1.3 mg/dL (1.7-2.3); Osmolality Calculated 278 mOsm/kg (285-295); Potassium 3.9 mmol/L (3.5-5.1); Sodium 133 mmol/L (136-145); Total Bilirubin 2.5 mg/dL (0.15-1.2)
[2021-06-18 10:23] LABS: Phosphorus 1.5 mg/dL (2.5-4.5)
[2021-06-18 10:28] LABS: Creatine Phosphokinase 1251 U/L (26-192)
--- NOTE | 2021-06-18 12:02 | PC.NURSE ---
this nurse took over care at 1110.
--- NOTE | 2021-06-18 12:17 | PC.NURSE ---
report received at 1215. Sitter at door
--- NOTE | 2021-06-18 12:39 | PC.NURSE ---
Dr. Kwong at pt bedside at this time.
[2021-06-18] MEDS: metoprolol tartrate 50 mg Tablet PO (13:00)
--- NOTE | 2021-06-18 14:46 | PM.PN ---
Subjective Subjective: Interval history: Patient was seen this morning, currently ER holding, she is alert to person, to place, not to time, she is a bit more calm this morning, denies chest pain, denies shortness of breath, denies palpitations, denies seeing or hearing things are not there, denies any tremors, denies any fevers, denies any suicidal ideation, denies any homicidal ideation, does complain of diffuse musculoskeletal pain Vitals/I&O/Wt Last Vital Signs Temp 98.1 F 06/17/21 11:17 Pulse 106 H 06/18/21 13:01 Resp 16 06/18/21 13:01 BP 171/88 06/18/21 13:01 Pulse Ox 97 06/18/21 13:01 06/17/21 06/18/21 06/18/21 22:59 06:59 14:59 Intake Total 1011.2 / 1011.2 999. 1050 / 1050 Balance 1011.2 / 1011.2 999. 1050 / 1050 Physical Exam Const: COMMON NORMALS: no acute distress GENERAL APPEARANCE: odor of alcohol detected ORIENTATION/CONSCIOUSNESS: Yes awake, Yes oriented to person and Yes oriented to place; not oriented to time Resp: COMMON NORMALS: normal respiratory effort, No retractions, No use of accessory muscles and clear to auscultation bilaterally AUSCULTATION: clear to auscultation bilaterally Cardio: COMMON NORMALS: regular rhythm, S1 normal heart sound present, S2 normal heart sound present, No gallops present (Cardio), No clicks present (Cardio) and No murmurs present (Cardio) RATE: tachycardic RHYTHM: regular rhythm HEART SOUNDS: S1 normal heart sound present and S2 normal heart sound present GI: COMMON NORMALS: Normal to inspection, nondistended, normoactive bowel sounds present, Soft to palpation and non-tender PALPATION: Yes Soft to palpation Extremity: COMMON NORMALS: no pedal edema Neuro: COMMON NORMALS: moves all extremities and no focal motor deficits SENSORIUM/ORIENTATION: Yes oriented to person, Yes oriented to place and No oriented to time Skin: NARRATIVE SKIN EXAM: Multiple skin abrasions, rash, throughout back, bilateral extremities, arms Data : 06/18/21 09:24 06/18/21 09:24 Micro: Microbiology 06/17/21 15:13 Urine Culture - Preliminary Urine Catheterized Gram Negative Rods 06/17/21 16:25 Blood Culture - Preliminary Blood SPECIMEN COLLECTED 06/17/21 14:30 Blood Culture - Preliminary Blood SPECIMEN COLLECTED A&P Assessment and plan (1) Acute alcohol intoxication: -Monitor for alcohol withdrawal -Currently minimal withdrawal symptoms, but is still in the 96-hour window for withdrawals -Has required to ICU admissions in the past for alcohol withdrawal -We will require ICU level care, currently monitor in the emergency room -[facility] protocol -Ativan -Scheduled Librium -Thiamine, folic acid, banana bag -Replace magnesium, potassium, phosphorus -Full code -Heparin for DVT prophylaxis -Multiple skin abrasions, will have to monitor Status: Acute Qualifiers: Complication of substance-induced condition: uncomplicated Qualified Code(s): F10.920 - Alcohol use, unspecified with intoxication, uncomplicated (2) Alcoholic ketoacidosis: -Monitor anion gap, monitor acidosis, will get methanol and ethylene glycol levels Status: Acute (3) Alcohol use disorder, severe, dependence: Status: Chronic (4) Obesity (BMI 35.0-39.9 without comorbidity): Status: Acute (5) Rhabdomyolysis: Likely secondary to prolonged immobility, monitor CPK, monitor creatinine, continue IV fluids Status: Acute (6) Acute kidney injury: Start gentle IV hydration, monitor creatinine, monitor urine output Status: Acute (7) Urinary tract infection: On Zosyn, monitor urine cultures, blood cultures Status: Acute (8) Elevated lactic acid level: Status: Acute (9) Transaminitis: Status: Acute Additional A&P Information Currently on a 96-hour hold, Has a history of eloping One-on-one sitter Attestations Medical Necessity Statement*: Patient requires hospitalization for acute alcohol withdrawal, UTI, rhabdo, MARIAH Coding Level of Care Code 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
--- NOTE | 2021-06-18 14:47 | USR_ITS ---
PROCEDURE INFORMATION: Exam: US Duplex Lower Extremity Veins, Bilateral Exam date and time: 06/18/2021 2:47 PM Age: 51 years old Clinical indication: Pain; Leg, lower; Bilateral; Additional info: B/l calf pain TECHNIQUE: Imaging protocol: Real-time duplex ultrasound of the extremities with 2-D south scale, color Doppler flow and spectral waveform analysis with image documentation. Complete exam focused on the bilateral lower extremity veins. COMPARISON: US renal BI* [id number] 06/17/2021 2:43 PM FINDINGS: Right deep veins: Unremarkable. The common femoral, femoral, proximal profunda femoral and popliteal veins are patent without thrombus. Normal Doppler waveforms. Normal compressibility and/or augmentation response. Calf veins are patent. Right superficial veins: Saphenofemoral junction is patent without thrombus. Left deep veins: Unremarkable. The common femoral, femoral, proximal profunda femoral and popliteal veins are patent without thrombus. Normal Doppler waveforms. Normal compressibility and/or augmentation response. Calf veins are patent. Left superficial veins: Saphenofemoral junction is patent without thrombus. Soft tissues: Unremarkable. US/[place] [id number] IMPRESSION: No evidence of lower extremity deep vein thrombosis.
--- NOTE | 2021-06-18 14:50 | PC.NURSE ---
pt resting quietly at this time. Patient sitter is at door. pt remains on the cardiac tech.
[2021-06-18] MEDS: cloNIDine 0.1 mg Tablet PO (17:02)
[2021-06-18] MEDS: magnesium sulfate premix 4 GM/100 ML PREMIX IV (17:02)
[2021-06-18] MEDS: sodium chloride 0.9% 1,000 ML 100 ML IV (17:13)
[2021-06-18] MEDS: potassium phosphate (mEq K) 40 MEQ in sodium chloride 0.9% (100 ml) 100 ML 27.25 MEQ IV (21:17)
[2021-06-19] VITALS (7 sets, daily range): BP systolic 139–174; BP diastolic 88–97; PULSE 76–120; RESP 16–17; TEMP 36.6–36.9; O2SAT 95–98
[2021-06-19] MEDS: piperacillin-tazobactam 3.375 GM in sodium chloride 0.9% (plus) 50 ML IV (01:41)
[2021-06-19] MEDS: chlordiazePOXIDE 25 mg Capsule PO ×3 (02:28→16:48)
[2021-06-19] MEDS: cloNIDine 0.1 mg Tablet PO ×2 (02:29→15:45)
[2021-06-19] MEDS: sodium chloride 0.9% 1,000 ML 100 ML IV (03:40)
--- NOTE | 2021-06-19 06:00 | USR_ITS ---
PROCEDURE INFORMATION: Exam: US Abdomen, Limited; Right Upper Quadrant Exam date and time: 06/19/2021 6:00 AM Age: 51 years old Clinical indication: Abnormal findings; Abnormal lab test; Other: Transamintis, elevated bilirubin, alkphos; Additional info: Ruq, transamintis, elevated bili, alkphos TECHNIQUE: Imaging protocol: US abdomen. Real time ultrasound with image documentation. Limited exam focused on the right upper quadrant. COMPARISON: CT abdomen pelvis w con* [id number] 12/26/2020 4:20 PM FINDINGS: Liver: The liver is diffusely and mildly hyperechoic, suggesting fatty infiltration. No intrahepatic or extrahepatic biliary dilation identified. Gallbladder: The gallbladder is not seen, consistent with cholecystectomy. Common bile duct: The common bile duct is within normal limits for caliber at 0.5 cm. No common bile duct stone identified. Pancreas: Limited visualization of the pancreas due to bowel gas. Visualized portion is unremarkable. Right kidney: The right kidney measures 12.3 cm in length and is unremarkable. No hydronephrosis, calculi, or masses identified involving the right kidney. Aorta: Visualized portions of the aorta are unremarkable. Inferior vena cava: Visualized portions of the inferior vena cava are unremarkable. US/US abdomen limited [id number] IMPRESSION: 1. The liver is diffusely and mildly hyperechoic, suggesting fatty infiltration.
[2021-06-19 06:32] LABS: Basophils % 0.5 %; Eosinophils # 0.2 10^3/uL (0.0-0.8); Eosinophils % 4.3 %; Hematocrit 35.3 % (37.0-47.0); Hemoglobin 11.3 g/dL (11.5-15.3); Lymphocytes # 1.1 10^3/uL (0.8-4.8); Lymphocytes % 28.7 %; Mean Corpuscular Hemoglobin 30.8 pg (28.0-34.0); Mean Corpuscular Volume 96.2 fl (81-99); Mean Platelet Volume 10.1 fL (7.4-10.4); Monocytes # 0.3 10^3/uL (0.2-0.9); Monocytes % 6.7 %; Neutrophils # 2.22 10^3/uL (1.8-7.7); Neutrophils % 59.5 %; Nucleated Red Blood Cells % 0 %; Platelet Count 100 10^3/cmm (130-400); Red Blood Count 3.67 10^6/uL (4.1-5.3); Red Cell Distribution Width 13.2 % (12.1-15.1); White Blood Count 3.7 10^3/uL (4.0-10.0)
[2021-06-19] MEDS: pantoprazole 40 mg SDV IVP (06:34)
[2021-06-19 07:00] LABS: Alanine Aminotransferase 54 U/L (0-33); Alkaline Phosphatase 102 IU/L (35-105); Anion Gap 12.3 (5-19); Aspartate Amino Transferase 42 U/L (0-32); Blood Urea Nitrogen 6 mg/dL (6-20); Calcium 7.7 mg/dL (8.5-10.5); Carbon Dioxide 26 mmol/L (22-29); Chloride 105 mmol/L (98-107); Globulin 2.1 g/dL (1.3-4.6); Glomerular Filtration Rate 106.3 mL/min (90-130); Glucose 104 mg/dL (65-115); Magnesium 2.2 mg/dL (1.7-2.3); Osmolality Calculated 288 mOsm/kg (285-295); Phosphorus 2.2 mg/dL (2.5-4.5); Potassium 3.3 mmol/L (3.5-5.1); Sodium 140 mmol/L (136-145); Total Bilirubin 1.3 mg/dL (0.15-1.2); Total Protein 5.1 g/dL (6.6-8.7)
[2021-06-19 08:01] LABS: Creatine Phosphokinase 591 U/L (26-192)
--- NOTE | 2021-06-19 08:21 | P.HP_ITS ---
Providers/Chief Complaint Admitting Physician: Silviano Hernandez MD Primary Care Provider: Da Myles MD Chief Complaint: AMS HX ETOH HPI NPU History of Present Illness Yeimy Perry is a 51 year old female who presented to the emergency department with the following report: Chief Complaint: Altered Mental Status Stated Complaint: AMS HX ETOH Time Seen by Provider: 06/17/21 11:15 Source: patient and EMS Mode of arrival: EMS Limitations: altered mental status History of Present Illness: HPI narrative: This 51-year-old female patient is a frequent visitor to the emergency department usually with alcohol intoxication. She was brought in today by EMS after she was found in the brush with 2 bottles of hard liquor being held onto by her and the patient was altered probably from intoxication. No one knows how long she has been in the brush for. She was seen in this emergency department 2 days ago for alcohol intoxication and was discharged. She is not coherent and is unable to give me history. She has lots of superficial scratches and bruises. In the ambulance her glucose was checked and it was in the 130s. MD complaint: altered mental status and intoxication Onset (ago): unknown Context: alcohol abuse Treatments prior to arrival: IV fluid. She admitted to the MedSurg unit for definitive treatment of her issues initially. A consult was requested and when she was medically stable she was transferred to the neuropsychiatric unit for definitive treatment of those issues. She presented there with his opinion. Of course acknowledges that she has started drinking again and could not explain why she was found in the state that she was found in the [place]. She reports getting out of her home and now she does not have a place to go. She has no real new thinking or thoughts about how she is going to manage her recovery or obligates. She endorse significant depression. We discussed continuing her current medications and working with the treating tomorrow to see what possibilities exist for assistance with recovery oriented options. Denies any symptoms of changes on excerpt of her last note is included for context. He had been working at [employer] and had her own place till this recent relapse. Per her 02/15/2021 [facility] inpatient psychiatric evaluation: History of Present Illness Yeimy Perry is a 50 year old female who presented to emergency department with the following report: Chief Complaint: Alcohol Stated Complaint: SI WITH ETOH Time Seen by Provider: 02/14/21 17:43 Source: patient Mode of arrival: EMS Limitations: no limitations History of Present Illness: HPI narrative: Not given a lot of history, states that she drank a lot of alcohol today. She does not tell me the amount but says she drank a lot of vodka. She denies homicidal or suicidal ideation. She is not cooperative. MD complaint: alcohol intoxication Chronic alcohol use: Yes Previous visits for alcohol intoxication: Yes Recent trauma: No Associated symptoms: Deny abdominal pain, depression, diaphoresis, hematemesis, involuntary movements, melena, nausea, seizure-like activity, suicidal ideation, syncope or vomiting Treatments prior to arrival: none. She is admitted to the neuropsychiatric unit for definitive treatment of those issues. Yeimy presents today well-known to the unit through previous hospitalizations and with near daily visits to the emergency room over the last few days. She endorses that she had a drink at a alliance party at her job a few days ago and has been drinking again. She reports that her outpatient rehab begins on and her goal is to get to that programming. She also reports that she is still employed and does not want to lose her job. She came in reporting feeling suicidal secondary to drinking again daily. She reports that the last time she had significant success with her sobriety/abstinence was when she was on Antabuse and was hopeful in getting that restarted. We reviewed her medications restarted her other medications and discussed the risk benefits and alternatives of different treatment consideration of that she understood and agreed proceed as is documented in this note. We specifically reviewed inpatient rehab and concerns that she is avoiding what continues to be inevitable as she is unable to remain sober longer than very short periods of time recently. 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 This gloria her fourth admission since this 12/27/2020 inpatient stay. Per her 12/27/2020 [facility] inpatient psychiatric eval: History of Present Illness Yeimy Perry is a 50 year old female who presented to the emergency department with the following report: Chief Complaint: Psychiatric Symptoms Stated Complaint: SI Time Seen by Provider: 12/26/20 12:39 History of Present Illness: HPI Narrative: The patient is a 50-year-old female with past medical history alcoholism and pancreatitis. She says she is also feeling depressed like she wants to hurt herself but has no plan. Last drink of alcohol 12 hours ago and heart rate over 100. She says she began to have upper midline abdominal pain typical of her pancreatitis and has been nauseous and vomiting at home. She says she quit drinking alcohol cold however further questioning likely reveals it is from the nausea and vomiting that are preventing her from drinking. She does smell of alcohol on her breath. Associated symptoms: Deny depression. She was admitted to the neuropsychiatric unit for definitive treatment of those issues. She presents today reporting that she has been drinking again but reports this only been a week. She has been sober for about 3 months she reports. She reports feeling somewhat despondent at the fact that she has nothing to do and is seen by her life has not improve the way she wanted to. She reports that her job and relationships and different things for like there is stagnant at this time. We discussed the risk-benefit and alternatives of rehabbing Prozac she had success on before as well as increasing her Geodon and understood and agreed to proceed as is documented in this note. I have included an excerpt of her 01/26/2020 inpatient psychiatric evaluation for context that she is denied substantive changes. Per her 01/26/2020 [facility] inpatient psychiatric evaluation: History of Present Illness Yeimy Perry is a 49 year old female who presented to the emergency room with an elevated blood alcohol level, intoxicated and endorsing thoughts to kill herself. She was admitted to the neuro psych unit and reported what had occurred was she got the Antabuse that was prescribed at her previous admission and she took religiously for a month and had great success with it. Then [facility] had it on back order and she couldn't find it anywhere else and after a few days off of it there was a alliance party last gathering where someone brought alcohol, and she relapsed and was fearful that it would begin a long drawnout episode and she was fearful of the return of the Warnicke Korsakoff so she came to the hospital. Now that she has slept a little bit she feels like she is going to be able to manage it while she tried to find someplace that had the medication. We attempted to call a couple places while she was here and it was on back order those places well the name brand which might be available in some places it is not covered by Medicaid and is over $700. She denied all lethality or any other issues. She reports that she is living at the same place and has no changes in her psychosocial circumstances or history as compared to her December or October hospitalizations. Diagnoses at Discharge Discharge Diagnosis (1) Wernicke-Korsakoff syndrome (alcoholic): Status: Resolved Reason for Visit Reason for Visit: Reason For Visit: acute etoh intox;suicidal ideation;96 hour hold Brief History: History of Present Illness Yeimy Perry is a 49 year old with recurrent inpatient NPU admissions for alcohol abuse, reported lethality and alcohol intoxication or withdrawal. She presents today c/o drinking continuously since Sunday(today is Sunday) and having thoughts about hurting herself with a knife. Said she needed help with suicidal thoughts and her tremors that were starting, hence came to ER. Multiple episodes of nausea and vomiting+. No hematemesis. No kosta or BRPR. C/o chronic epigastric and RUQ pain ongoing since 4 months. Bedsise US performed in ER per verbal report shows liver cirrhosis. She is s/p cholecystectomy. Other notable labs upon admission are anion gap 25 (chronic), mild hyponatremia and hypochloremia, transaminitis AST 94, ALT 76, ALP 222 (chronic), T. bili 2.6, higher than at previous admissions. Tylenol level <5, alcohol level 413. No h/o fever. Abd/pelvis CT from 04/2019 showed normal liver. Unknown hepatitis serology status Providers/Reason for Consult Consulting Physican/Specialty*: Tushar Finley M.D. Psychiatry Reason for Consult*: Severe alcohol dependency with relapse; BAL .480. Patient verbalizes suicidal ideation. Requesting Physcian: Davina Hernandez MD Attending Physician: Domingo Hoffman Primary Care Provider: SOLEDAD Carlson Psych Consult HPI History of Present Illness Yeimy Perry is a 49 year old female with recurrent inpatient NPU admissions for alcohol abuse, reported suicidality and alcohol intoxication or withdrawal. She presents today c/o drinking continuously since Sunday(today is Sunday) and having thoughts about hurting herself with a knife. Said she needed help with suicidal thoughts and her tremors that were starting, hence came to ER. Hospital Course Hospital Course The patient is now launched into emotional lability and impulsiveness. We have called [facility] and the hospital cold storage supervisor and there is no one by her fianc?'s name who is known to have . The patient has subsequently become quite delusional of a paranoid nature and, at one point thought her son had , which is also not true as far as we are able to determine. Yeimy presented to the emergency room with an extremely elevated BAL and was transferred to the ICU. Dr. Finley did a consultation and transferred her to the neuro psych unit. At that time she was diagnosed with Warnicke Korsakoff syndrome with psychotic features and short-term memory difficulties. She was on a 96-hour hold and a 21-day hold was filed. However with the appropriate use of folic acid and thiamine along with her other medications her psychosis resolved and her memory improved dramatically. As with previous hospitalization she endorsed having it up if any and not needing inpatient hospitalization/rehab and endorsed a desire for outpatient drug and alcohol rehabilitation services. During the hospitalization she had routine laboratory studies which were within normal limits except for a few outliers. No heart murmur laboratory disturbances included in the brief history above. Additionally she had a general medical evaluation which was within normal limits revealing the delirium/Warnicke Korsakoff syndrome noted but otherwise no new acute processes. Discharge Summary At the time of discharge there was no lethality, the patient's mood was stabilized, anxiety was well managed, there is no psychosis reported or noted, the patient endorsed a plan to follow-up with the referrals that were provided. The patient endorsed a plan to avoid alcohol and all other drugs of abuse. Evaluation revealed no credible lethality and the patient had obtained the maximum benefit from an inpatient hospitalization so the individual was discharged Meds NPU Home Medications Medication Instructions Recorded Confirmed Last Taken Type ferrous sulfate 325 mg (65 mg 325 mg PO BID 03/14/21 06/17/21 Unknown History iron) tablet hydroxyzine pamoate 50 mg capsule 50 mg PO BEDTIME PRN #30 cap 03/14/21 06/17/21 Unknown Rx chlordiazepoxide HCl 10 mg PO Q6H PRN #20 cap 05/29/21 06/17/21 Unknown Rx multivitamin with folic acid 400 1 tab PO DAILY 30 Days #30 tab 06/09/21 06/17/21 Unknown Rx mcg tablet fluoxetine 20 mg PO DAILY 06/15/21 06/17/21 Unknown History meloxicam 15 mg PO BEDTIME 06/15/21 06/17/21 Unknown History ziprasidone HCl 80 mg PO DAILY 06/15/21 06/17/21 Unknown History Allergies Allergy/AdvReac Type Severity Reaction Status Date / Time acetaminophen [From [place]] AdvReac Mild ADR-Itching Verified 06/14/21 13:14 hydrocodone [From [place]] AdvReac Mild ADR-Itching Verified 06/14/21 13:14 PFSH NPU PFSH: Medical History Alcohol dependence Has been prescribed antabuse Anxiety Arthritis of right knee Bipolar disorder Chronic post-traumatic stress disorder (PTSD) Depression Depressive disorder History of anemia History of Wernicke's encephalopathy Hx of cholecystitis Iron deficiency anemia Obesity (BMI 35.0-39.9 without comorbidity) Psychiatric care Recurrent pancreatitis Right elbow tendinitis Suicidal thoughts in the past Surgical History History of Hx of gastric bypass Hx of hernia repair Hx of tubal ligation Hx of unilateral salpingectomy Right Family History Other Diabetes Heart disease Social History Smoking and tobacco status: never smoked Alcohol intake: current History of recent travel: No Current gender identity: Female Mental Status Exam MSE Comments: This is an obese white female in hospital gown with limited grooming and eye contact. With no abnormal movements except for psychomotor retardation and mild tremulousness. Cooperative with exam and in mild distress. Speech was decreased rate and volume. Mood described as depressed, affect is congruent. Thought process organized. Thought content: Patient endorsed suicid al ideation, but denied homicidal ideation , there were no delusions reported or noted, she denied auditory or visual hallucinations. Attention and concentration were intact and memory appeared reliable but none were formally tested. She is alert and oriented x 3. Insight and judgment are impaired and impulse control is impaired. Vitals/I&O/Wt Last Vital Signs Temp 98.4 F 06/19/21 03:36 Pulse 76 06/19/21 03:36 Resp 16 06/19/21 03:36 BP 162/88 06/19/21 03:36 Pulse Ox 95 06/19/21 03:36 06/18/21 06/18/21 06/19/21 14:59 22:59 06:59 Intake Total 1050 / 1050 50 / 1100 1100 / 2200 Output Total 800 / 800 1500 / 2300 Balance 1050 / 1050 -750 / 300 -400 / -100 Data NPU : 06/19/21 05:45 06/19/21 05:45 Micro: Microbiology 06/17/21 16:25 Blood Culture - Preliminary Blood NEGATIVE TO DATE 06/17/21 14:30 Blood Culture - Preliminary Blood NEGATIVE TO DATE 06/17/21 15:13 Urine Culture - Preliminary Urine Catheterized Gram Negative Rods Microbiology 06/17/21 16:25 Blood Blood Culture - Preliminary NEGATIVE TO DATE 06/17/21 14:30 Blood Blood Culture - Preliminary NEGATIVE TO DATE 06/17/21 15:13 Urine Catheterized Urine Culture - Preliminary Gram Negative Rods A&P Assessment and plan (1) Transaminitis: Status: Acute (2) Elevated lactic acid level: Status: Acute (3) Urinary tract infection: Status: Acute (4) Acute kidney injury: Status: Acute (5) Rhabdomyolysis: Status: Acute (6) Acute alcohol intoxication: Status: Acute Qualifiers: Complication of substance-induced condition: uncomplicated Qualified Code(s): F10.920 - Alcohol use, unspecified with intoxication, uncomplicated (7) Chronic alcohol abuse: Status: Acute (8) Alcoholic ketoacidosis: Status: Acute (9) Depressive disorder: Status: Acute (10) Overdose: Status: Acute Qualifiers: Encounter type: initial encounter Injury intent: intentional self-harm Qualified Code(s): T50.902A - Poisoning by unspecified drugs, medicaments and biological substances, intentional self-harm, initial encounter (11) Chronic post-traumatic stress disorder (PTSD): Status: Chronic (12) Alcohol use disorder, severe, dependence: Status: Chronic (13) Right elbow tendinitis: Status: Acute (14) Obesity (BMI 35.0-39.9 without comorbidity): Status: Acute Additional A&P Information This is a 51-year-old white female with a long history of alcohol use disorder severe and PTSD, depression and significant psychosocial stressors who was found in the [place] covered in urine and feces intoxicated and was placed on a 96-hour hold medically cleared and now transferred to the neuropsychiatric. 1. Continue current medication. 2. Continue every 15 minute checks for safety. 3. Encourage individual, group and milieu therapies. 4. Encourage sober living treatment after discharge at the highest level of care to which he is willing to commit. Involuntary Hold Information 96 Hour Hold: 96 Hour Involuntary Admission: No Attestations NPU Medical Necessity Statement*: Inpatient hospitalization is medically necessary and the clinically appropriate intervention at this time. We will monitor medications and make changes as indicated. Patient will be in the hospital for over two midnights. Likely length of stay 3 to 5 days. Coding Level of Care Code Acute Manager Managed [employer] Services for [facility] Fwd Diagnoses Transaminitis R74.01 Elevated lactic acid level R79.89 Urinary tract infection N39.0 Acute kidney injury N17.9 Rhabdomyolysis M62.82 Acute alcohol intoxication F10.920 Complication of substance-induced condition: uncomplicated Chronic alcohol abuse F10.10 Alcoholic ketoacidosis E87.2 Depressive disorder F32.9 Overdose T50.902A Encounter type: initial encounter Injury intent: intentional self-harm Chronic post-traumatic stress disorder (PTSD) F43.12 Alcohol use disorder, severe, dependence F10.20 Right elbow tendinitis M77.8 Obesity (BMI 35.0-39.9 without comorbidity) E66.9
[2021-06-19] MEDS: folic acid 1 mg Tablet PO (09:39)
[2021-06-19] MEDS: ferrous sulfate EC 325 mg Tablet PO ×2 (09:39→20:16)
[2021-06-19] MEDS: fluoxetine 20 mg Capsule PO (09:39)
[2021-06-19] MEDS: ziprasidone hcl 40 mg Capsule 80 MG PO (09:39)
[2021-06-19] MEDS: thiamine 100 mg Tablet PO (09:39)
[2021-06-19] MEDS: multivitamin therapeutic Tablet 1 TAB PO (09:40)
--- NOTE | 2021-06-19 12:43 | PM.PN ---
Subjective Subjective: Interval history: Patient was examined this morning, denies chest pain, no palpitations, no visual hallucinations, no auditory hallucinations, no tactile hallucinations, no suicidal homicidal ideation, she does have diffuse musculoskeletal pain, no pruritus, no fevers Vitals/I&O/Wt Last Vital Signs Temp 97.9 F 06/19/21 12:00 Pulse 97 06/19/21 12:00 Resp 16 06/19/21 12:00 BP 147/89 06/19/21 12:00 Pulse Ox 98 06/19/21 12:00 06/18/21 06/19/21 06/19/21 22:59 06:59 14:59 Intake Total 50 / 1100 1100 / 2200 759.0909 / 759.0909 Output Total 800 / 800 1500 / 2300 Balance -750 / 300 -400 / -479 780.5119 / 759.0909 Physical Exam Const: COMMON NORMALS: no acute distress and patient oriented x3 Resp: COMMON NORMALS: normal respiratory effort, No retractions, No use of accessory muscles and clear to auscultation bilaterally AUSCULTATION: clear to auscultation bilaterally Cardio: COMMON NORMALS: regular rate, regular rhythm, S1 normal heart sound present and S2 normal heart sound present RATE: regular rate RHYTHM: regular rhythm HEART SOUNDS: S1 normal heart sound present and S2 normal heart sound present GI: COMMON NORMALS: Normal to inspection, nondistended, normoactive bowel sounds present, Soft to palpation and non-tender PALPATION: Yes Soft to palpation Extremity: COMMON NORMALS: no pedal edema Neuro: COMMON NORMALS: patient oriented x3 Psych: COMMON NORMALS: mental status grossly normal Skin: NARRATIVE SKIN EXAM: Multiple skin abrasions, rash, throughout back, bilateral extremities, arms Data : 06/19/21 05:45 06/19/21 05:45 Micro: Microbiology 06/17/21 15:13 Urine Culture - Final Urine Catheterized Escherichia coli 06/17/21 16:25 Blood Culture - Preliminary Blood NEGATIVE TO DATE 06/17/21 14:30 Blood Culture - Preliminary Blood NEGATIVE TO DATE A&P Assessment and plan (1) Acute alcohol intoxication: -Out of withdrawal window -Currently minimal withdrawal symptoms -Tolerating Librium well, space out to 25 every 8 hours -Medically stable to move to neuropsych -Thiamine, folic acid -Replace magnesium, potassium, phosphorus -Full code -Leukopenia continue to monitor, thrombocytopenia continue to monitor -Liver ultrasound shows diffusely mildly hyperechoic liver, suggesting fatty infiltration -Advised to stop drinking alcohol -Follow-up with primary care provider as outpatient, follow LFTs as outpatient -Multiple skin abrasions, will have to monitor Status: Acute Qualifiers: Complication of substance-induced condition: uncomplicated Qualified Code(s): F10.920 - Alcohol use, unspecified with intoxication, uncomplicated (2) Alcoholic ketoacidosis: -Resolved Status: Acute (3) Alcohol use disorder, severe, dependence: Status: Chronic (4) Obesity (BMI 35.0-39.9 without comorbidity): Status: Acute (5) Rhabdomyolysis: cpk [id number] Status: Acute (6) Acute kidney injury: Resolved, creatinine 0.6 Status: Acute (7) Urinary tract infection: Urine cultures show E. 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
--- NOTE | 2021-06-19 14:26 | PC.NURSE ---
Pt transferred to NPU via wheelchair by this RN, PSA, and security.
[2021-06-19] MEDS: LORazepam 2 mg Tablet PO ×2 (16:47→20:17)
[2021-06-19] MEDS: acetaminophen 325 mg Tablet 650 MG PO (20:17)
[2021-06-19] MEDS: sulfamethoxazole-trimeth DS 160-800 mg Tablet 1 TAB PO (20:17)
[2021-06-19] MEDS: hyDRALAzine 10 mg Tablet PO (22:18)
[2021-06-20] MEDS: chlordiazePOXIDE 25 mg Capsule PO ×3 (02:50→17:18)
[2021-06-20 06:00] VITALS: BP 145/99; PULSE 105; RESP 15; TEMP 36.6; O2SAT 95
[2021-06-20 06:29] VITALS: BP 145/99
[2021-06-20] MEDS: cloNIDine 0.1 mg Tablet PO ×2 (06:29→22:47)
[2021-06-20] MEDS: hyDROXYzine 25 mg Capsule 50 MG PO ×2 (06:52→22:50)
[2021-06-20 07:30] VITALS: BP 145/99
[2021-06-20] MEDS: hyDRALAzine 10 mg Tablet PO ×3 (08:21→22:47)
[2021-06-20] MEDS: ziprasidone hcl 40 mg Capsule 80 MG PO (08:21)
[2021-06-20] MEDS: pantoprazole DR 40 mg Tablet PO (08:21)
[2021-06-20] MEDS: multivitamin therapeutic Tablet 1 TAB PO (08:21)
[2021-06-20] MEDS: sulfamethoxazole-trimeth DS 160-800 mg Tablet 1 TAB PO ×2 (08:22→22:48)
[2021-06-20] MEDS: folic acid 1 mg Tablet PO (08:22)
[2021-06-20] MEDS: ferrous sulfate EC 325 mg Tablet PO ×2 (08:22→22:48)
[2021-06-20] MEDS: thiamine 100 mg Tablet PO (08:22)
[2021-06-20] MEDS: fluoxetine 20 mg Capsule PO (08:22)
[2021-06-20 14:00] VITALS: BP 117/79; PULSE 108; RESP 20; TEMP 36.6; O2SAT 96
--- NOTE | 2021-06-20 14:59 | PM.NPN ---
Subjective NPU Subjective: Interval history: I met with Dr. Kwong and then the treatment team to review the patient's progress. She was brought to the ED after being found in the brush behind the store intoxicated with altered mental status. She was medically stabilized and cleared on the medical floor, and they commented that the window for alcohol withdrawal symptoms had passed. The patient says she has been feeling shaky and sweaty, has had nausea and some vomiting, and has been seeing things, for instance people on donnel[place] and weird designs. She says her mood, however, is good. Sleep was interrupted during the night. She has had no auditory hallucinations. She has been kicked out of her house and is now homeless. We talked about options for where she could live, including a intermediate. She is hoping to get a new start. Vitals/I&O/Wt Last Vital Signs Temp 98.9 F 06/21/21 06:00 Pulse 81 06/21/21 06:00 Resp 14 06/21/21 06:00 BP 113/73 06/21/21 06:00 Pulse Ox 96 06/21/21 06:00 Weight last 48 hrs Weight 115.779 kg Data NPU : 06/21/21 03:32 06/21/21 03:32 A&P Assessment and plan (1) Alcohol use disorder, severe, dependence: Status: Chronic (2) Depressive disorder: Status: Acute (3) Transaminitis: Status: Acute (4) Urinary tract infection: Status: Acute (5) Acute kidney injury: Status: Acute (6) Rhabdomyolysis: Status: Acute (7) Chronic post-traumatic stress disorder (PTSD): Status: Chronic (8) Right elbow tendinitis: Status: Acute (9) Obesity (BMI 35.0-39.9 without comorbidity): Status: Acute Additional A&P Information This is a 51-year-old female frequent visitor to the emergency department usually with alcohol intoxication, who was brought to the ED by EMS after she was found in the brush intoxicated wiht altered mental status. She was admitted to the medical floor and transferred to the neuropsychiatric unit when medically stable. She was recently kicked out of her apartment and is now homeless. 1. Continue current medication. 2. Continue every 15 minute checks for safety. 3. Encourage individual, group and milieu therapies. 4. Encourage sober living treatment after discharge at the highest level of care to which he is willing to commit. Involuntary Hold Information 96 Hour Hold: 96 Hour Involuntary Admission: No Attestations NPU Medical Necessity Statement*: Inpatient hospitalization is medically necessary and the clinically appropriate intervention at this time. We will monitor medications and make changes as indicated. Likely length of stay 1 to 3 days. Coding Level of Care Code Acute Insurance Follow Up Representative for [facility] Diagnoses Alcohol use disorder, severe, dependence F10.20 Depressive disorder F32.9 Transaminitis R74.01 Urinary tract infection N39.0 Acute kidney injury N17.9 Rhabdomyolysis M62.82 Chronic post-traumatic stress disorder (PTSD) F43.12 Right elbow tendinitis M77.8 Obesity (BMI 35.0-39.9 without comorbidity) E66.9
[2021-06-20 15:37] LABS: Basophils % 0.4 %; Eosinophils # 0.3 10^3/uL (0.0-0.8); Eosinophils % 6.7 %; Hematocrit 34.9 % (37.0-47.0); Hemoglobin 11.5 g/dL (11.5-15.3); Lymphocytes # 1.1 10^3/uL (0.8-4.8); Lymphocytes % 23.4 %; Mean Corpuscular Hemoglobin 30.9 pg (28.0-34.0); Mean Corpuscular Volume 93.8 fl (81-99); Mean Platelet Volume 10.5 fL (7.4-10.4); Monocytes # 0.3 10^3/uL (0.2-0.9); Monocytes % 6.5 %; Neutrophils # 2.94 10^3/uL (1.8-7.7); Neutrophils % 61.9 %; Nucleated Red Blood Cells % 0 %; Platelet Count 107 10^3/cmm (130-400); Red Blood Count 3.72 10^6/uL (4.1-5.3); Red Cell Distribution Width 12.7 % (12.1-15.1); White Blood Count 4.8 10^3/uL (4.0-10.0)
[2021-06-20 16:10] LABS: Albumin Level 2.9 g/dL (3.5-5.2); Alkaline Phosphatase 93 IU/L (35-105); Blood Urea Nitrogen 6 mg/dL (6-20); Calcium 8.2 mg/dL (8.5-10.5); Carbon Dioxide 27 mmol/L (22-29); Chloride 106 mmol/L (98-107); Creatine Phosphokinase 209 U/L (26-192); Creatinine Clr Calc Pharmacy 151.5695; Globulin 2.4 g/dL (1.3-4.6); Glomerular Filtration Rate 106.3 mL/min (90-130); Glucose 95 mg/dL (65-115); Magnesium 1.5 mg/dL (1.7-2.3); Osmolality Calculated 289 mOsm/kg (285-295); Phosphorus 2.7 mg/dL (2.5-4.5); Sodium 141 mmol/L (136-145); Total Bilirubin 0.5 mg/dL (0.15-1.2); Total Protein 5.3 g/dL (6.6-8.7)
[2021-06-20 16:11] LABS: Alanine Aminotransferase 44 U/L (0-33); Aspartate Amino Transferase 40 U/L (0-32)
[2021-06-20 22:00] VITALS: BP 127/83; PULSE 93; RESP 17; TEMP 36.6; O2SAT 98
[2021-06-20 22:47] VITALS: BP 127/83
[2021-06-21] MEDS: chlordiazePOXIDE 25 mg Capsule PO ×4 (00:35→21:26)
[2021-06-21 03:52] LABS: Basophils % 0.2 %; Eosinophils # 0.3 10^3/uL (0.0-0.8); Eosinophils % 5.2 %; Hematocrit 34.4 % (37.0-47.0); Hemoglobin 11.3 g/dL (11.5-15.3); Lymphocytes # 1.4 10^3/uL (0.8-4.8); Lymphocytes % 27.1 %; Mean Corpuscular HGB Conc 32.8 g/dL (30.0-36.0); Mean Corpuscular Hemoglobin 30.9 pg (28.0-34.0); Mean Platelet Volume 10.7 fL (7.4-10.4); Monocytes # 0.4 10^3/uL (0.2-0.9); Monocytes % 7.9 %; Neutrophils # 3.03 10^3/uL (1.8-7.7); Neutrophils % 58.6 %; Nucleated Red Blood Cells % 0 %; Platelet Count 101 10^3/cmm (130-400); Red Blood Count 3.66 10^6/uL (4.1-5.3); White Blood Count 5.2 10^3/uL (4.0-10.0)
[2021-06-21 04:52] LABS: Alanine Aminotransferase 44 U/L (0-33); Albumin Level 3.1 g/dL (3.5-5.2); Alkaline Phosphatase 91 IU/L (35-105); Anion Gap 13.6 (5-19); Aspartate Amino Transferase 34 U/L (0-32); Blood Urea Nitrogen 6 mg/dL (6-20); Calcium 8.2 mg/dL (8.5-10.5); Carbon Dioxide 26 mmol/L (22-29); Chloride 105 mmol/L (98-107); Creatine Phosphokinase 131 U/L (26-192); Globulin 2.3 g/dL (1.3-4.6); Glomerular Filtration Rate 88.9 mL/min (90-130); Glucose 94 mg/dL (65-115); Magnesium 1.5 mg/dL (1.7-2.3); Osmolality Calculated 289 mOsm/kg (285-295); Phosphorus 3.3 mg/dL (2.5-4.5); Potassium 3.6 mmol/L (3.5-5.1); Sodium 141 mmol/L (136-145); Total Bilirubin 0.4 mg/dL (0.15-1.2); Total Protein 5.4 g/dL (6.6-8.7)
[2021-06-21 06:00] VITALS: BP 113/73; PULSE 81; RESP 14; TEMP 37.2; O2SAT 96
[2021-06-21] MEDS: cloNIDine 0.1 mg Tablet PO ×2 (08:15→21:25)
[2021-06-21] MEDS: multivitamin therapeutic Tablet 1 TAB PO (08:15)
[2021-06-21] MEDS: folic acid 1 mg Tablet PO (08:15)
[2021-06-21] MEDS: ziprasidone hcl 40 mg Capsule 80 MG PO (08:16)
[2021-06-21] MEDS: thiamine 100 mg Tablet PO (08:16)
[2021-06-21] MEDS: fluoxetine 20 mg Capsule PO (08:16)
[2021-06-21] MEDS: pantoprazole DR 40 mg Tablet PO (08:16)
[2021-06-21] MEDS: sulfamethoxazole-trimeth DS 160-800 mg Tablet 1 TAB PO ×2 (08:16→21:27)
[2021-06-21] MEDS: ferrous sulfate EC 325 mg Tablet PO ×2 (08:16→21:25)
[2021-06-21] MEDS: hyDRALAzine 10 mg Tablet PO ×3 (08:16→21:25)
--- NOTE | 2021-06-21 12:28 | NPU.GN ---
[facility] Group Topic:Thought Processing General Mood of Group: Patient did not come to group today.
[2021-06-21 14:00] VITALS: BP 144/91; PULSE 98; RESP 18; TEMP 37.1; O2SAT 98
[2021-06-21 20:52] VITALS: BP 128/91; PULSE 109; RESP 17; TEMP 36.6; O2SAT 97
--- NOTE | 2021-06-21 20:56 | PM.CONSULT ---
Providers/Reason For Consult Consulting Physician/Specialty*: Frase/Hospitalist Reason for Consult*: elbow pain and rash Requesting Physician: Dr Vicente Attending Physician: Hemanth Vicente MD Primary Care Provider: Da Myles MD History of Present Illness History of Present Illness Yeimy Perry is a 51 year old female who was admitted to the neuropsychiatric unit a few days ago. She had been found in some words intoxicated. She indicates that she had probably been in the [place] for a couple of days. She had abrasions to both elbows left more so than right. At presentation she also had a rash all over. The rash has localized to be primarily on both arms, currently right more so than left. She has a lot of itching. She does not remember any vesicular formation. Her skin abrasions have scabbed over and the scabs on the left are causing pain with movement. Pain is moderate in intensity. She has been picking at the scabs. Hospitalist were asked to see because of the skin findings and pain. Review of Systems Const: Denies: fever(s) or chills Musc: Reports: extremity pain (Some pain at the right elbow with movement) Skin/Breast: Reports: rash, pruritus, erythema and sores (Scabbed over and hurting, dry and cracking) Marlon/Lymph: Denies: easy bruising or easy bleeding Meds/Allergies Home Medications and Allergies Home Medications Medication Instructions Recorded Confirmed Last Taken Type ferrous sulfate 325 mg (65 mg 325 mg PO BID 03/14/21 06/17/21 Unknown History iron) tablet hydroxyzine pamoate 50 mg capsule 50 mg PO BEDTIME PRN #30 cap 03/14/21 06/17/21 Unknown Rx chlordiazepoxide HCl 10 mg PO Q6H PRN #20 cap 05/29/21 06/17/21 Unknown Rx multivitamin with folic acid 400 1 tab PO DAILY 30 Days #30 tab 06/09/21 06/17/21 Unknown Rx mcg tablet fluoxetine 20 mg PO DAILY 06/15/21 06/17/21 Unknown History meloxicam 15 mg PO BEDTIME 06/15/21 06/17/21 Unknown History ziprasidone HCl 80 mg PO DAILY 06/15/21 06/17/21 Unknown History Allergies Allergy/AdvReac Type Severity Reaction Status Date / Time acetaminophen [From Sod] AdvReac Mild ADR-Itching Verified 06/14/21 13:14 hydrocodone [From Sod] AdvReac Mild ADR-Itching Verified 06/14/21 13:14 Current Medications Current Medications Generic Name Dose Route Start Last Admin Trade Name Mikey PRN Reason Stop Dose Admin Acetaminophen 650 mg 06/17/21 23:45 06/19/21 20:17 Acetaminophen 325 Mg Tablet PO 650 mg Q6H PRN Administration Mild/Mod Pain Or Temp >/= 101 Clonidine HCl 0.1 mg 06/20/21 21:00 06/21/21 08:15 Clonidine 0.1 Mg Tablet PO 0.1 mg 09,2099 ALEX Administration Ferrous Sulfate 325 mg 06/20/21 21:00 06/21/21 08:16 Ferrous Sulfate Ec 325 Mg Tablet PO 325 mg 899,2099 ALEX Administration Fluoxetine HCl 20 mg 06/18/21 09:00 06/21/21 08:16 Fluoxetine 20 Mg Capsule PO 20 mg DAILY ALEX Administration Folic Acid 1 mg 06/18/21 09:00 06/21/21 08:15 Folic Acid 1 Mg Tablet PO 1 mg DAILY ALEX Administration Hydralazine HCl 10 mg 06/19/21 11:20 06/21/21 14:23 Hydralazine 10 Mg Tablet PO 10 mg TID ALEX Administration Hydroxyzine Pamoate 50 mg 06/20/21 02:46 06/20/21 22:50 Hydroxyzine 25 Mg Capsule PO 50 mg Q6H PRN Administration ANXIETY Lorazepam 2 mg 06/19/21 14:36 06/19/21 20:17 Lorazepam 2 Mg Tablet PO 2 mg PROTOCOL PRN Administration WITHDRAWAL Protocol Multivitamins Therapeutic 1 tab 06/18/21 09:00 06/21/21 08:15 Multivitamin Therapeutic Tablet PO 1 tab DAILY ALEX Administration Pantoprazole Sodium 40 mg 06/20/21 09:00 06/21/21 08:[address] 40 Mg Tablet PO 40 mg DAILY ALEX Administration Thiamine Mononitrate 100 mg 06/18/21 09:00 06/21/21 08:16 Thiamine 100 Mg Tablet PO 100 mg DAILY ALEX Administration Trimethoprim/Sulfamethoxazole 1 tab 06/20/21 21:00 06/21/21 08:16 Sulfamethoxazole-Trimeth Ds 160-800 Mg Tablet PO 1 tab 899,2099 ALEX Administration Protocol Ziprasidone 80 mg 06/18/21 09:00 06/21/21 08:16 Ziprasidone Hcl 40 Mg Capsule PO 80 mg DAILY ALEX Administration PFSH Acute PFSH: Medical History (Updated 06/21/21 @ 21:39 by Genna Nowak MD) Alcohol dependence Has been prescribed antabuse Anxiety Arthritis of right knee Bipolar disorder Chronic post-traumatic stress disorder (PTSD) Depressive disorder History of Wernicke's encephalopathy Hx of cholecystitis Iron deficiency anemia Obesity (BMI 35.0-39.9 without comorbidity) Psychiatric care Recurrent pancreatitis Right elbow tendinitis Suicidal thoughts in the past Surgical History History of Hx of gastric bypass Hx of hernia repair Hx of tubal ligation Hx of unilateral salpingectomy Right Family History Other Diabetes Heart disease Social History Smoking and tobacco status: never smoked Alcohol intake: current History of recent travel: No Current gender identity: Female Female Reproductive History: Date of last menstrual period: 05/25/21 Vitals/I&O/Wt Last Vital Signs Temp 97.9 F 06/21/21 20:52 Pulse 109 H 06/21/21 20:52 Resp 17 06/21/21 20:52 BP 128/91 06/21/21 20:52 Pulse Ox 97 06/21/21 20:52 Weight last 48 hrs Weight 115.779 kg Physical Exam Narrative: EXAM NARRATIVE: Awake and alert, cooperative. Has abrasions to the left elbow covering a large area. These are scabbed over and cracking. She has tenderness over the scabs. No areas of fluctuance or purulence or induration noted. No epicondylar tenderness or other bony tenderness except near where the scabs encroach this area. Bursa does not feel inflamed. Good range of motion with pain at the ends of flexion and internal rotation particularly where it is evident that the scabs are cracking. There are smaller less significant millimeter abrasions to the forearm and the skin is dry. Mild erythema where she has been scratching but no urticaria. On the right elbow there is a significantly lesser degree of scabbing in a similar pattern but on the right arm there is splotchy erythema from mid upper arm to wrist including some of the hand rash is flushed without any urticarial appearance. There are some scratch gloria evident. No vesicular lesions are noted but there are multiple pinpoint dried scabs. Rash is primarily confined to these areas although with some dried skin and some minor scabbing other areas. Data Labs: Other Labs: Laboratory Results WBC 5.2 10^3/uL (4.0- 10.0) 06/21/21 03:32 RBC 3.66 10^6/uL (4.1 -5.3) L 06/21/21 03:32 Hgb 11.3 g/dL (11.5-1 5.3) L 06/21/21 03:32 Hct 34.4 % (37.0-47.0 ) L 06/21/21 03:32 MCV 94.0 fl (81-99) 06/21/21 03:32 MCH 30.9 pg (28.0-34. 0) 06/21/21 03:32 MCHC 32.8 g/dL (30.0-3 6.0) 06/21/21 03:32 RDW 13.0 % (12.1-15.1 ) 06/21/21 03:32 Plt Count 101 10^3/cmm (130 -400) L 06/21/21 03:32 MPV 10.7 fL (7.4-10.4 ) H 06/21/21 03:32 Neut % (Auto) 58.6 % 06/21/21 03:32 Lymph % (Auto) 27.1 % 06/21/21 03:32 [place] % (Auto) 7.9 % 06/21/21 03:32 Eos % (Auto) 5.2 % 06/21/21 03:32 Baso % (Auto) 0.2 % 06/21/21 03:32 Neut # (Auto) 3.03 10^3/uL (1.8 -7.7) 06/21/21 03:32 Lymph # (Auto) 1.4 10^3/uL (0.8- 4.8) 06/21/21 03:32 [place] # (Auto) 0.4 10^3/uL (0.2- 0.9) 06/21/21 03:32 Eos # (Auto) 0.3 10^3/uL (0.0- 0.8) 06/21/21 03:32 Baso # (Auto) 0.0 10^3/uL (0.0- 0.1) 06/21/21 03:32 Nucleated RBC % (a uto) 0 % 06/21/21 03:32 Nucleated RBCs # 0.0 /100WBC 06/21/21 03:32 Sodium 141 mmol/L (136-1 45) 06/21/21 03:32 Potassium 3.6 mmol/L (3.5-5 .1) 06/21/21 03:32 Chloride 105 mmol/L (98-10 7) 06/21/21 03:32 Carbon Dioxide 26 mmol/L (22-29) 06/21/21 03:32 Anion Gap 13.6 (5-19) 06/21/21 03:32 BUN 6 mg/dL (6-20) 06/21/21 03:32 Creatinine 0.7 mg/dL (0.5-0. 9) 06/21/21 03:32 GFR Calculation 88.9 mL/min (90-1 30) L 06/21/21 03:32 Glucose 94 mg/dL (65-115) 06/21/21 03:32 Estimat Average Gl ucose 94 06/17/21 12:19 Hemoglobin A1c 4.9 % (4.0-6.0) 06/17/21 12:19 Calculated Osmolal ity 289 mOsm/kg (285- 295) 06/21/21 03:32 Lactic Acid 3.6 mmol/L (0.5-2 .2) H 06/17/21 12:19 Lactic Acid (Sepsi s) 3.5 mmol/L (0.5-2 .2) H 06/17/21 16:25 Calcium 8.2 mg/dL (8.5-10 .5) L 06/21/21 03:32 Phosphorus 3.3 mg/dL (2.5-4. 5) 06/21/21 03:32 Magnesium 1.5 mg/dL (1.7-2. 3) L 06/21/21 03:32 Total Bilirubin 0.4 mg/dL (0.15-1 .2) 06/21/21 03:32 AST 34 U/L (0-32) H 06/21/21 03:32 ALT 44 U/L (0-33) H 06/21/21 03:32 Alkaline Phosphata se 91 IU/L (35-105) 06/21/21 03:32 Creatine Kinase 131 U/L (26-192) 06/21/21 03:32 C-Reactive Protein 10.0 mg/L (0.0-4. 9) H 06/18/21 09:24 Total Protein 5.4 g/dL (6.6-8.7 ) L 06/21/21 03:32 Albumin 3.1 g/dL (3.5-5.2 ) L 06/21/21 03:32 Globulin 2.3 g/dL (1.3-4.6 ) 06/21/21 03:32 Lipase 15 U/L (13-60) 06/17/21 12:19 Procalcitonin 0.83 ng/mL (0-0.5 ) H 06/17/21 12:19 TSH 0.38 uIU/mL (0.27 -4.20) 06/17/21 12:19 Urine Color Dark yellow (Yel low) 06/17/21 12:36 Urine Appearance Cloudy (CLEAR) 06/17/21 12:36 Urine pH 5 (5-7) 06/17/21 12:36 Ur Specific Gravit y 1.025 (1.005-1.0 30) 06/17/21 12:36 Urine Protein 1+ (Negative) H 06/17/21 12:36 Urine Glucose (UA) Norm (Normal) 06/17/21 12:36 Urine Ketones 1+ (Negative) H 06/17/21 12:36 Urine Blood 3+ (Negative) H 06/17/21 12:36 Urine Nitrate Negative (Negati ve) 06/17/21 12:36 Urine Bilirubin 1+ (Negative) H 06/17/21 12:36 Urine Urobilinogen 4 mg/dL (Negative ) H 06/17/21 12:36 Ur Leukocyte Marlys ase 1+ (Negative) H 06/17/21 12:36 Urine RBC 5-10 /hpf (0-2) H 06/17/21 12:36 Urine WBC 10-15 /hpf (0-5) H 06/17/21 12:36 Ur Squamous Epith Cells 15-25 /hpf (0-5) H 06/17/21 12:36 Ur Transition Epit h Cell 0-4 /hpf 06/17/21 12:36 Amorphous Sediment Not Reportable 06/17/21 12:36 Urine Bacteria 4+ /hpf (NONE) H 06/17/21 12:36 Urine Mucus 1+ /hpf 06/17/21 12:36 Salicylates < 0.3 mg/dL (3-10 ) L 06/17/21 12:19 Urine Opiates Scre en Negative ng/mL (N egative) 06/17/21 12:36 Acetaminophen < 5.0 ug/mL (10-3 0) L 06/17/21 12:19 Ur Barbiturates Sc reen Negative ng/mL (N egative) 06/17/21 12:36 Ur Phencyclidine S crn Negative ng/mL (N egative) 06/17/21 12:36 Ur Amphetamines Sc reen Negative ng/mL (N egative) 06/17/21 12:36 U Benzodiazepines Scrn Negative ng/mL (N egative) 06/17/21 12:36 Urine Cocaine Scre en Negative ng/mL (N egative) 06/17/21 12:36 U Marijuana (THC) Screen Negative ng/mL (N egative) 06/17/21 12:36 Ethyl Alcohol 366 mg/dL (0-10) H* 06/17/21 12:19 Impressions Chest X-Ray 06/17/21 11:48 IMPRESSION: Unremarkable chest radiograph. Head CT 06/17/21 12:05 IMPRESSION: 1. Quality of this examination is compromised by motion. 2. No evidence for an acute hemorrhage or edema taking into consideration the amount of motion. Renal Ultrasound 06/17/21 14:09 IMPRESSION: Normal renal ultrasound. Venous Duplex 06/18/21 14:47 IMPRESSION: No evidence of lower extremity deep vein thrombosis. Abdomen Ultrasound 06/19/21 06:00 IMPRESSION: 1. The liver is diffusely and mildly hyperechoic, suggesting fatty infiltration. A&P Assessment and plan (1) Abrasions of multiple sites: Left elbow most significant with dried scabs that are cracking with movement and causing pain. Patient is also picking at the scabs which is not helping any. Explained to her that she needs to try not to pick at the wounds anywhere. Will order some triple antibiotic ointment which should help moisturize the wounds and minimize some of the discomfort but will take some time to heal. Status: Acute (2) Dermatitis: Likely contact dermatitis, possibly poison genoveva but not classic appearance. Does not appear to be a drug reaction with distribution confined to exposed areas where her abrasions are. Will order some steroid and Benadryl cream for relief. Status: Acute (3) Elbow pain: Left greater than right. Currently suspect this is primarily to the extent of scabbing. There is no swelling or significant limitation in range of motion. Tender areas are where the scabs are. No red streaks beyond the scabbing. No areas of fluctuance or drainage. Does not have point tenderness over the bony aspects of the elbow. Status: Acute Qualifiers: Laterality: bilateral Qualified Code(s): M25.521 - Pain in right elbow; M25.522 - Pain in left elbow (4) Hypomagnesemia: Not unexpected given chronic alcohol use, replacement ordered Status: Acute Additional A&P Information Appreciate opportunity to participate in patient's care Given some lab abnormalities, which I believe are related to alcohol use including low platelet and elevated transaminases, I have ordered tick panel, particularly as she was found in the [place], for completeness, my suspicion for this is low currently Noted low magnesium level and have ordered replacement She continues on Bactrim for UTI Blood cultures from admission are pending as are 2 miscellaneous test We will repeat CRP and procalcitonin since they were previously elevated As noted, have ordered triple antibiotic ointments for scabs and steroid and Benadryl cream for rash We will follow up to ensure no worsening, please let us know if patient develops fever, worsening rash, decreased range of motion or swelling or other concerning findings of the left elbow beyond what she currently demonstrates Other care as per psychiatry Consult Attestations Medical Necessity Statement: As per psychiatry Coding Level of Care Code Acute 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
[2021-06-21 21:25] VITALS: BP 128/94
[2021-06-21] MEDS: hyDROXYzine 25 mg Capsule 50 MG PO (21:25)
[2021-06-21] MEDS: trazodone 50 mg Tablet PO ×2 (21:26→23:47)
[2021-06-21] MEDS: hydrocortisone 1% cream 28 gm 1 APPLIC TOPICAL (23:23)
[2021-06-21] MEDS: diphenhydrAMINE cream 30 gm 1 APPLIC TOPICAL (23:23)
[2021-06-21] MEDS: acetaminophen 325 mg Tablet 650 MG PO (23:50)
[2021-06-22] MEDS: hydrocortisone 1% cream 28 gm 1 APPLIC TOPICAL (05:50)
[2021-06-22] MEDS: diphenhydrAMINE cream 30 gm 1 APPLIC TOPICAL (05:50)
[2021-06-22 06:00] VITALS: BP 119/94; PULSE 90; RESP 20; TEMP 36.8; O2SAT 98
[2021-06-22] MEDS: chlordiazePOXIDE 25 mg Capsule PO (06:14)
[2021-06-22] MEDS: folic acid 1 mg Tablet PO (07:51)
[2021-06-22] MEDS: cloNIDine 0.1 mg Tablet PO (07:51)
[2021-06-22] MEDS: magnesium oxide 400 mg tablet PO (07:52)
[2021-06-22] MEDS: hyDRALAzine 10 mg Tablet PO (07:52)
[2021-06-22] MEDS: fluoxetine 20 mg Capsule PO (07:52)
[2021-06-22] MEDS: multivitamin therapeutic Tablet 1 TAB PO (07:52)
[2021-06-22] MEDS: ferrous sulfate EC 325 mg Tablet PO (07:52)
[2021-06-22] MEDS: pantoprazole DR 40 mg Tablet PO (07:52)
[2021-06-22] MEDS: sulfamethoxazole-trimeth DS 160-800 mg Tablet 1 TAB PO (07:52)
[2021-06-22] MEDS: ziprasidone hcl 40 mg Capsule 80 MG PO (07:53)
[2021-06-22] MEDS: thiamine 100 mg Tablet PO (07:53)
[2021-06-22 11:43] VITALS: BP 119/94; PULSE 90; RESP 20; TEMP 36.8; O2SAT 98
--- NOTE | 2021-06-22 12:27 | P.DS_ITS ---
Diagnoses at Discharge Discharge Diagnosis (1) Abrasions of multiple sites: Status: Acute (2) Dermatitis: Status: Acute (3) Elbow pain: Status: Acute Qualifiers: Laterality: bilateral Qualified Code(s): M25.521 - Pain in right elbow; M25.522 - Pain in left elbow (4) Hypomagnesemia: Status: Acute Reason for Visit Reason for Visit: AMS HX ETOH Brief History: Yeimy Perry is a 51 year old female who presented to the emergency department with the following report: Chief Complaint: Altered Mental Status Stated Complaint: AMS HX ETOH Time Seen by Provider: 06/17/21 11:15 Source: patient and EMS Mode of arrival: EMS Limitations: altered mental status History of Present Illness: HPI narrative: This 51-year-old female patient is a frequent visitor to the emergency department usually with alcohol intoxication. She was brought in today by EMS after she was found in the brush with 2 bottles of hard liquor being held onto by her and the patient was altered probably from intoxication. No one knows how long she has been in the brush for. She was seen in this emergency department 2 days ago for alcohol intoxication and was discharged. She is not coherent and is unable to give me history. She has lots of superficial scratches and bruises. In the ambulance her glucose was checked and it was in the 130s. MD complaint: altered mental status and intoxication Onset (ago): unknown Context: alcohol abuse Treatments prior to arrival: IV fluid. She admitted to the MedSurg unit for definitive treatment of her issues initially. A consult was requested and when she was medically stable she was transferred to the neuropsychiatric unit for definitive treatment of those issues. She presented there with his opinion. Of course acknowledges that she has started drinking again and could not explain why she was found in the state that she was found in the [place]. She reports getting out of her home and now she does not have a place to go. She has no real new thinking or thoughts about how she is going to manage her recovery or obligates. She endorse significant depression. We discussed continuing her current medications and working with james ayala treating tomorrow to see what possibilities exist for assistance with recovery oriented options. Denies any symptoms of changes on excerpt of her last note is included for context. He had been working at [employer] and had her own place till this recent relapse. Hospital Course Hospital Course The patient was admitted to the neuropsychiatric unit for definitive treatment of these issues. On the unit she slowly acclimated to the individual, group and milieu therapies. There were some mild psychotic symptoms present initially which resolved with the medication being restarted. She was receptive to treatment team recommendations and showed modest improvement and was able to contract for safety prior to discharge. During the hospitalization, patient had routine laboratory studies which were within normal limits except for few outliers. Additionally there was a general medical evaluation which was also within normal limits and revealed no new acute processes. Discharge Summary: At the time of discharge, psychosis and lethality were denied. Mood and anxiety were well managed. Patient endorsed a plan to avoid all drugs of abuse and follow-up with the aftercare recommendations of the treatment team. Patient was evaluated and deemed to be absent credible lethality, and had achieved the maximum benefit from an inpatient hospitalization, so was discharged. Involuntary Hold Information 96 Hour Hold: 96 Hour Involuntary Admission: No Mental Status Exam MSE Comments: This is an obese white female in hospital gown with limited grooming and eye contact. With no abnormal movements except for psychomotor retardation and mild tremulousness. Cooperative with exam and in mild distress. Speech was decreased rate and volume. Mood described as depressed, affect is congruent. Thought process organized. Thought content: Patient endorsed suicidal ideation, but denied homicidal ideation , there were no delusions reported or noted, she denied auditory or visual hallucinations. Attention and concentration were intact and memory appeared reliable but none were formally tested. She is alert and oriented x 3. Insight and judgment are impaired and impulse control is impaired. Discharge Data Data Completed and Pending: Completed Studies During Hospitalization Category Date Time Status CT head wo con* [id number] Urgent Cat Scan 06/17/21 12:05 Completed XR chest 1V miladys ble [id number] Urgent Exams 06/17/21 11:48 [place] [id number] Routin e Ultrasound 06/18/21 14:47 Completed US abdomen limite d [id number] Routine Ultrasound 06/19/21 06:00 Completed US renal BI* [id number] Urgent Ultrasound 06/17/21 14:09 Completed Pending at discharge Category Date Time Status Blood Culture Sta t Lab 06/17/21 16:25 Results Miscellaneous Pat t Routine Lab 06/17/21 12:19 Received Miscellaneous Pat t Stat Lab 06/17/21 16:25 Received Vitals: Last Vital Signs Temp 98.3 F 09/01/21 11:43 Pulse 90 06/22/21 11:43 Resp 20 H 06/22/21 11:43 BP 119/94 06/22/21 11:43 Pulse Ox 98 06/22/21 11:43 Discharge Plan Discharge Patient Disposition: Home Condition: Stable Prescriptions: New clonidine HCl 0.1 mg Tablet 0.1 mg PO 0900,2100 30 Days Qty: 60 RF: 0 hydralazine 10 mg Tablet 10 mg PO TID Qty: 90 RF: 0 hydrocortisone 1 % Cream 1 applic topical QID PRN (Reason: Rash) Qty: 28.4 RF: 0 folic acid 1 mg Tablet 1 mg PO DAILY Qty: 30 RF: 0 Triple Antibiotic 3.5mg-400 unit- 5,000 unit/gram Ointment 1 applic topical BID PRN (Reason: for c/o infection/itching ) Qty: 15 RF: 0 pantoprazole 40 mg Tablet,Delayed Release (Dr/Ec) 40 mg PO DAILY Qty: 30 RF: 0 Vitamin B-1 (mononitrate) 100 mg Tablet 100 mg PO DAILY Qty: 30 RF: 0 Magnesium oxide 400 mg capsule 400 mg PO BID 30 Days Qty: 60 RF: 0 Continued hydroxyzine pamoate 50 mg capsule 50 mg PO BEDTIME PRN (Reason: anxiety/insomnia) Qty: 30 RF: 1 Thera 400 mcg tablet 1 tab PO DAILY 30 Days Qty: 30 RF: 12 ziprasidone HCl 80 mg capsule 80 mg PO DAILY 30 Days Qty: 30 RF: 0 ferrous sulfate 325 mg (65 mg iron) tablet 325 mg PO BID Qty: 30 RF: 0 fluoxetine 20 mg capsule 20 mg PO DAILY Qty: 30 RF: 0 Discontinued chlordiazepoxide HCl 10 mg capsule 10 mg PO Q6H PRN (Reason: withdrawal symptoms) Qty: 20 RF: 0 meloxicam 15 mg tablet 15 mg PO BEDTIME RF: 0 Discharge Orders: Discharge Order (Routine); Ordered 06/22/21 Ordered By: Hemanth Vicente Referrals: [facility] [Outside] - 1 week (Walk in on Sunday or from 7:30am to 3:00pm to complete an initial assessment.) Discharge Diet: Usual diet Discharge Activity: Resume usual activity Patient Instructions: Sulfamethoxazole/Trimethoprim (By mouth), Clonidine (By mouth), Hydralazine (By mouth), Opioid Safety Discharge Attestations NPU Time Spent in Discharge Care*: less than 30 min Specific Discharge Activities: Specific discharge activities: educating patient, discussing with telehealth case manager/social workers/dc planners, documenting/other paperwork and evaluating patient/reviewing data Status at Discharge: Cognitive status at discharge: cognitively intact , Behavioral status at discharge: cooperative , Functional status at discharge: independent ambulation Overall status at discharge: patient is back to baseline Coding Level of Care Code Acute Chg FW DC note Diagnoses Abrasions of multiple sites T07.XXXA Dermatitis L30.9 Elbow pain M25.521; M25.522 Laterality: bilateral Hypomagnesemia E83.42
== END 2021-06-22 12:09 | disposition home or self-care (01) | DRG 897 ==
LOC: ER 11:49 → MEDSURG 06-18 14:58 → NP 06-19 14:27
PROVIDERS: Admitting Provider Family Medicine; Emergency Provider Family Medicine; PCP Family Medicine Adult Medicine; Visit Provider Psychiatry & Neurology Child & Adolescent Psychiatry
DX: F10.239 Alcohol dependence with withdrawal, unspecified (principal); M62.82 Rhabdomyolysis; N17.9 Acute kidney failure, unspecified; E87.2 Acidosis; N30.90 Cystitis, unspecified without hematuria; F32.9 Major depressive disorder, single episode, unspecified; F41.9 Anxiety disorder, unspecified; F10.229 Alcohol dependence with intoxication, unspecified; F10.24 Alcohol dependence with alcohol-induced mood disorder; F10.280 Alcohol dependence with alcohol-induced anxiety disorder; Y90.8 Blood alcohol level of 240 mg/100 ml or more; D50.9 Iron deficiency anemia, unspecified; D72.819 Decreased white blood cell count, unspecified; D69.6 Thrombocytopenia, unspecified; E83.42 Hypomagnesemia; E66.9 Obesity, unspecified; F43.10 Post-traumatic stress disorder, unspecified; L25.9 Unspecified contact dermatitis, unspecified cause; S50.312A Abrasion of left elbow, initial encounter; S50.311A Abrasion of right elbow, initial encounter; X58.XXXA Exposure to other specified factors, initial encounter; Z68.39 Body mass index [BMI] 39.0-39.9, adult; Z87.19 Personal history of other diseases of the digestive system
CPT/HCPCS: 36415; 70450; 71045; 76705; 76770; 80053; 80306; 80307; 81001; 82550; 82693; 83036; 83605; 83690; 83735; 84100; 84145; 84443; 85025; 86140; 87040; 87077; 87086; 87186; 93970; 96365; 96366; 96367; 96372; 96375; 97110; 97116; 97162; 97165; 99291; C9113; J1630; J1644; J2060; J2543; J3411; J3475; J3490; J7030

== ENCOUNTER 2021-09-22 00:41 | Inpatient (IN) | payer MEDICAID, SELFPAY ==
[2021-09-22] VITALS (8 sets, daily range): BP systolic 137–145; BP diastolic 78–98; PULSE 102–127; RESP 16–22; TEMP 36.6–36.8; O2SAT 94–99; BMI 39.5
--- NOTE | 2021-09-22 00:43 | ED.C_ITS ---
HPI - Psych General: Chief Complaint: Psychiatric Symptoms Stated Complaint: SI/ETOH Time Seen by Provider: 09/22/21 00:42 Source: patient and EMS Mode of arrival: EMS Limitations: no limitations History of Present Illness: HPI Narrative: 51-year-old female with a long history of alcoholism states that she is having suicidal thoughts and depression. She states that she cannot kidney drinking like this and just wants to kill herself. Patient called EMS due to intoxication along with suicide thoughts. She has no specific plan but does states she just does not want live anymore. She states she is drank 1/5 tonight. Associated symptoms: Reports depression and suicidal ideation Review of Systems Const: Denies: fever(s), chills, body aches or change in appetite Eyes: Denies: blurry vision or eye discomfort ENMT: Denies: throat pain or dental pain Card: Denies: chest pain Resp: Denies: dyspnea GI: Denies: abdominal pain, nausea, vomiting or diarrhea : Denies: dysuria Musc: Denies: neck pain or back pain Skin/Breast: Denies: rash Neuro: Denies: headache(s) Psych: Reports: depression and suicidal ideation Marlon/Lymph: Denies: easy bruising All/Imm: Denies: urticaria PFSH ED PFSH: Medical History Alcohol dependence Has been prescribed antabuse Alcohol use disorder, severe, dependence Anxiety Arthritis of right knee Bipolar disorder Chronic post-traumatic stress disorder (PTSD) Depressive disorder History of Wernicke's encephalopathy Hx of cholecystitis Iron deficiency anemia Obesity (BMI 35.0-39.9 without comorbidity) Osteoarthritis Psychiatric care Recurrent pancreatitis Suicidal thoughts in the past Surgical History History of Hx of gastric bypass Hx of hernia repair Hx of tubal ligation Hx of unilateral salpingectomy Right Family History Other Diabetes Heart disease Social History Alcohol intake: current History of recent travel: No Current gender identity: Female Female Reproductive History: Date of last menstrual period: 05/25/21 Physical Exam Const: COMMON NORMALS: no acute distress, patient oriented x3 and healthy appearing GENERAL APPEARANCE: odor of alcohol detected HENMT: COMMON NORMALS: normocephalic and atraumatic HEAD & SCALP: normocephalic and atraumatic Eye: COMMON NORMALS: Equal, round and reactive pupils present and EOMs intact bilaterally PUPIL: Yes Equal, round and reactive pupils present Neck/C-Spine: COMMON NORMALS: full ROM and supple Chest: COMMONS NORMALS: normal inspection of the chest and normal palpation of entire chest wall Resp: COMMON NORMALS: normal respiratory effort, No retractions, No use of accessory muscles and clear to auscultation bilaterally AUSCULTATION: clear to auscultation bilaterally Cardio: COMMON NORMALS: regular rate, regular rhythm and No murmurs present (Cardio) RATE: regular rate RHYTHM: regular rhythm GI: COMMON NORMALS: Normal to inspection, nondistended, normoactive bowel sounds present, Soft to palpation, non-tender and no masses PALPATION: Yes Soft to palpation Extremity: COMMON NORMALS: normal to inspection and full ROM Neuro: COMMON NORMALS: patient oriented x3, moves all extremities and no focal motor deficits Psych: COMMON NORMALS: mental status grossly normal, Normal thought process present and cooperative THOUGHT PROCESS: Normal thought process present THOUGHT CONTENT: Yes Suicidality present Skin: COMMON NORMALS: no rashes or lesions noted and no wounds GENERAL SKIN EXAM: no rashes or lesions noted Course Vital Signs: Vital signs: Vital Signs Temperature 98.3 F 09/22/21 02:01 Pulse Rate 122 H 09/22/21 04:03 Respiratory Rate 22 H 09/22/21 04:03 Blood Pressure 140/88 09/22/21 04:03 Pulse Oximetry 99 09/22/21 04:03 MDM - Psych MDM Narrative: Medical decision making narrative: Yeimy presents here with suicidal ideation along with alcohol intoxication. Did have a slight anion gap likely due to alcoholism with slight alcoholic ketoacidosis her anion gap is closed after some IV fluids her alcohol levels went down to 176 as well. Patient is medically stable at this time I spoke to psychiatrist Dr. Kwong and will admit the psychiatric monatnez. Lab Data: Labs: Lab Results 09/22/21 09/22/21 09/22/21 01:15 01:57 01:57 WBC 10.9 10^3/uL H 10 ^3/uL (4.0-10.0) RBC 4.85 10^6/uL 10^6 /uL (4.1-5.3) Hgb 14.8 g/dL g/dL (11.5-15.3) Hct 46.3 % % (37.0-47.0) MCV 95.5 fl fl (81-99) MCH 30.5 pg pg (28.0-34.0) MCHC 32.0 g/dL g/dL (30.0-36.0) RDW 12.3 % % (12.1-15.1) Plt Count 204 10^3/cmm 10^3 /cmm (130-400) MPV 9.2 fL fL (7.4-10.4) Neut % (Auto) 69.7 % % Lymph % (Auto) 18.1 % % [place] % (Auto) 11.3 % % Eos % (Auto) 0.4 % % Baso % (Auto) 0.3 % % Neut # (Auto) 7.59 10^3/uL 10^3 /uL (1.8-7.7) Lymph # (Auto) 2.0 10^3/uL 10^3/ uL (0.8-4.8) [place] # (Auto) 1.2 10^3/uL H 10^ 3/uL (0.2-0.9) Eos # (Auto) 0.0 10^3/uL 10^3/ uL (0.0-0.8) Baso # (Auto) 0.0 10^3/uL 10^3/ uL (0.0-0.1) Nucleated RBC % (a uto) 0 % % Nucleated RBCs # 0.0 /100WBC /100W BC Specimen Type Sample Site ABG pH ABG pCO2 ABG pO2 ABG HCO3 ABG Base Excess Lamin Test Hematocrit O2 Delivery Device FiO2 Outpatient Coding Specialist ID Sodium 140 mmol/L mmol/L (136-145) Potassium 4.1 mmol/L mmol/L (3.5-5.1) Chloride 100 mmol/L mmol/L (98-107) Carbon Dioxide 13 mmol/L L mmol/ L (22-29) Anion Gap 31.1 H (5-19) BUN 12 mg/dL mg/dL (6-20) Creatinine 0.4 mg/dL L mg/dL (0.5-0.9) GFR Calculation 169.7 mL/min H mL /min (90-130) Glucose 110 mg/dL mg/dL (65-115) Calculated Osmolal ity 290 mOsm/kg mOsm/ kg (285-295) Calcium 8.4 mg/dL L mg/dL (8.5-10.5) Total Bilirubin 1.0 mg/dL mg/dL (0.15-1.2) AST 71 U/L H U/L (0-32) ALT 74 U/L H U/L (0-33) Alkaline Phosphata se 137 IU/L H IU/L (35-105) Total Protein 7.2 g/dL g/dL (6.6-8.7) Albumin 4.2 g/dL g/dL (3.5-5.2) Globulin 3.0 g/dL g/dL (1.3-4.6) Salicylates < 0.3 mg/dL L mg/ dL (3-10) Urine Opiates Scre en Negative ng/mL ng /mL (Negative) Acetaminophen < 5.0 ug/mL L ug/ mL (10-30) Ur Barbiturates Sc reen Negative ng/mL ng /mL (Negative) Ur Phencyclidine S crn Negative ng/mL ng /mL (Negative) Ur Amphetamines Sc reen Negative ng/mL ng /mL (Negative) U Benzodiazepines Scrn Negative ng/mL ng /mL (Negative) Urine Cocaine Scre en Negative ng/mL ng /mL (Negative) U Marijuana (THC) Screen Negative ng/mL ng /mL (Negative) Ethyl Alcohol 327 mg/dL H* mg/d L (0-10) 09/22/21 09/22/21 03:30 04:19 WBC RBC Hgb Hct MCV MCH MCHC RDW Plt Count MPV Neut % (Auto) Lymph % (Auto) [place] % (Auto) Eos % (Auto) Baso % (Auto) Neut # (Auto) Lymph # (Auto) [place] # (Auto) Eos # (Auto) Baso # (Auto) Nucleated RBC % (a uto) Nucleated RBCs # Specimen Type Arterial Sample Site Radial, left ABG pH 7.31 L (7.35-7.45) ABG pCO2 39.5 mmHg mmHg (35-45) ABG pO2 54.6 mmHg L mmHg (80.0-100.0) ABG HCO3 19.7 mmol/L L mmo l/L (22-26) ABG Base Excess -6.2 mmol/L L mmo l/L (-2.0-2.0) Lamin Test Pos Hematocrit 41.3 % % (37-47) O2 Delivery Device Room air FiO2 21.0 % % Outpatient Coding Specialist ID Nicer2 Sodium 139 mmol/L mmol/L (136-145) Potassium 4.5 mmol/L mmol/L (3.5-5.1) Chloride 103 mmol/L mmol/L (98-107) Carbon Dioxide 16 mmol/L L mmol/ L (22-29) Anion Gap 24.5 H (5-19) BUN 12 mg/dL mg/dL (6-20) Creatinine 0.4 mg/dL L mg/dL (0.5-0.9) GFR Calculation 169.7 mL/min H mL /min (90-130) Glucose 125 mg/dL H mg/dL (65-115) Calculated Osmolal ity 289 mOsm/kg mOsm/ kg (285-295) Calcium 7.2 mg/dL L mg/dL (8.5-10.5) Total Bilirubin AST ALT Alkaline Phosphata se Total Protein Albumin Globulin Salicylates Urine Opiates Scre en Acetaminophen Ur Barbiturates Sc reen Ur Phencyclidine S crn Ur Amphetamines Sc reen U Benzodiazepines Scrn Urine Cocaine Scre en U Marijuana (THC) Screen Ethyl Alcohol 176 mg/dL H mg/dL (0-10) Discharge Plan Discharge Patient Disposition: Admitted As Inpatient Clinical Impression: Suicidal ideation, Alcohol intoxication Condition: Stable Coding Level of Care Code ED 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
[2021-09-22 01:40] LABS: Amphetamines Screen Urine Negative (Negative); Barbiturates Screen Urine Negative (Negative); Benzodiazepines Screen Urine Negative (Negative); Cocaine Screen Urine Negative (Negative); Opiate Screen Urine Negative (Negative); PCP Screen Urine Negative (Negative); THC Screen Urine Negative (Negative)
[2021-09-22 02:02] LABS: Basophils % 0.3 %; Eosinophils % 0.4 %; Hematocrit 46.3 % (37.0-47.0); Hemoglobin 14.8 g/dL (11.5-15.3); Lymphocytes % 18.1 %; Mean Corpuscular Hemoglobin 30.5 pg (28.0-34.0); Mean Corpuscular Volume 95.5 fl (81-99); Mean Platelet Volume 9.2 fL (7.4-10.4); Monocytes # 1.2 10^3/uL (0.2-0.9); Monocytes % 11.3 %; Neutrophils # 7.59 10^3/uL (1.8-7.7); Neutrophils % 69.7 %; Nucleated Red Blood Cells % 0 %; Platelet Count 204 10^3/cmm (130-400); Red Blood Count 4.85 10^6/uL (4.1-5.3); Red Cell Distribution Width 12.3 % (12.1-15.1); White Blood Count 10.9 10^3/uL (4.0-10.0)
[2021-09-22] MEDS: LORazepam 2 mg Tablet PO ×3 (02:13→19:35)
[2021-09-22 02:31] LABS: Alanine Aminotransferase 74 U/L (0-33); Albumin Level 4.2 g/dL (3.5-5.2); Alkaline Phosphatase 137 IU/L (35-105); Aspartate Amino Transferase 71 U/L (0-32); Blood Urea Nitrogen 12 mg/dL (6-20); Calcium 8.4 mg/dL (8.5-10.5); Carbon Dioxide 13 mmol/L (22-29); Chloride 100 mmol/L (98-107); Glomerular Filtration Rate 169.7 mL/min (90-130); Glucose 110 mg/dL (65-115); Osmolality Calculated 290 mOsm/kg (285-295); Sodium 140 mmol/L (136-145); Total Protein 7.2 g/dL (6.6-8.7)
[2021-09-22 02:32] LABS: Acetaminophen < 5.0 ug/mL (10-30); Salicylate < 0.3 mg/dL (3-10)
[2021-09-22 02:33] LABS: Alcohol Level 327 mg/dL (0-10); Anion Gap 31.1 (5-19); Potassium 4.1 mmol/L (3.5-5.1)
--- NOTE | 2021-09-22 03:35 | PC.NURSE ---
assisted pt onto bedside toilet for bm.
[2021-09-22 03:42] LABS: ABG PCO2 39.5 mmHg (35-45); ABG PH Result 7.31 (7.35-7.45); Arterial Blood Gas Hematocrit 41.3 % (37-47); Base Excess ABG -6.2 mmol/L (-2.0-2.0); Blood Gas Allen Test Pos; Blood Gas Sample Type Arterial; HCO3 ABG 19.7 mmol/L (22-26); PO2 ABG 54.6 mmHg (80.0-100.0)
[2021-09-22] MEDS: sodium chloride 0.9% 1,000 ML 999 ML IV ×3 (03:42)
[2021-09-22 03:46] LABS: Blood Gas Sample Site Radial, left; Oxygen Device ROOM AIR
[2021-09-22] MEDS: LORazepam 1 mg Tablet PO (04:12)
[2021-09-22 04:43] LABS: Alcohol Level 176 mg/dL (0-10); Anion Gap 24.5 (5-19); Blood Urea Nitrogen 12 mg/dL (6-20); Calcium 7.2 mg/dL (8.5-10.5); Carbon Dioxide 16 mmol/L (22-29); Chloride 103 mmol/L (98-107); Glomerular Filtration Rate 169.7 mL/min (90-130); Glucose 125 mg/dL (65-115); Osmolality Calculated 289 mOsm/kg (285-295); Potassium 4.5 mmol/L (3.5-5.1); Sodium 139 mmol/L (136-145)
--- NOTE | 2021-09-22 08:14 | W.PM.NPUH&PS ---
Providers/Chief Complaint Admitting Physician: Antonio Kwong MD Primary Care Provider: aD Myles MD Chief Complaint: SI/ETOH HPI NPU History of Present Illness Yeimy Perry is a 51 year old female who presented to the emergency department with the following report: Chief Complaint: Psychiatric Symptoms Stated Complaint: SI/ETOH Time Seen by Provider: 09/22/21 00:42 Source: patient and EMS Mode of arrival: EMS Limitations: no limitations History of Present Illness: HPI Narrative: 51-year-old female with a long history of alcoholism states that she is having suicidal thoughts and depression. She states that she cannot kidney drinking like this and just wants to kill herself. Patient called EMS due to intoxication along with suicide thoughts. She has no specific plan but does states she just does not want live anymore. She states she is drank 1/5 tonight. Associated symptoms: Reports depression and suicidal ideation. She was admitted to the neuropsychiatric unit for definitive treatment of those issues. She presents today reporting that she has strong together about 60 days of sobriety and things are going well and then her boyfriend purchased some liquor and then she got some and things got bad. She reports overall she been doing well. She is been working at [employer] and that has gone well. 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 She had discontinued her medication and is not going to [facility] thinking that her druze would be enough. However she reports an openness to restart the Prozac and identified his a plan to reengage with [facility] but denies an interest in any long-term rehab affiliation. She denies any other new issues in her life an excerpt of her last discharge summary from June is included below for context. Per her 06/22/2021 [facility] inpatient psychiatric discharge summary: Discharge Diagnosis (1) Abrasions of multiple sites: Status: Acute (2) Dermatitis: Status: Acute (3) Elbow pain: Status: Acute Qualifiers: Laterality: bilateral Qualified Code(s): M25.521 - Pain in right elbow; M25.522 - Pain in left elbow (4) Hypomagnesemia: Status: Acute Reason for Visit Reason for Visit: AMS HX ETOH Brief History: Yeimy Perry is a 51 year old female who presented to the emergency department with the following report: Chief Complaint: Altered Mental Status Stated Complaint: AMS HX ETOH Time Seen by Provider: 06/17/21 11:15 Source: patient and EMS Mode of arrival: EMS Limitations: altered mental status History of Present Illness: HPI narrative: This 51-year-old female patient is a frequent visitor to the emergency department usually with alcohol intoxication. She was brought in today by EMS after she was found in the brush with 2 bottles of hard liquor being held onto by her and the patient was altered probably from intoxication. No one knows how long she has been in the brush for. She was seen in this emergency department 2 days ago for alcohol intoxication and was discharged. She is not coherent and is unable to give me history. She has lots of superficial scratches and bruises. In the ambulance her glucose was checked and it was in the 130s. MD complaint: altered mental status and intoxication Onset (ago): unknown Context: alcohol abuse Treatments prior to arrival: IV fluid. She admitted to the Medr unit for definitive treatment of her issues initially. A consult was requested and when she was medically stable she was transferred to the neuropsychiatric unit for definitive treatment of those issues. She presented there with his opinion. Of course acknowledges that she has started drinking again and could not explain why she was found in the state that she was found in the [place]. She reports getting out of her home and now she does not have a place to go. She has no real new thinking or thoughts about how she is going to manage her recovery or obligates. She endorse significant depression. We discussed continuing her current medications and working with the treating tomorrow to see what possibilities exist for assistance with recovery oriented options. Denies any symptoms of changes on excerpt of her last note is included for context. He had been working at [employer] and had her own place till this recent relapse. Hospital Course Hospital Course The patient was admitted to the neuropsychiatric unit for definitive treatment of these issues. On the unit she slowly acclimated to the individual, group and milieu therapies. There were some mild psychotic symptoms present initially which resolved with the medication being restarted. She was receptive to treatment team recommendations and showed modest improvement and was able to contract for safety prior to discharge. During the hospitalization, patient had routine laboratory studies which were within normal limits except for few outliers. Additionally there was a general medical evaluation which was also within normal limits and revealed no new acute processes. Discharge Summary: At the time of discharge, psychosis and lethality were denied. Mood and anxiety were well managed. Patient endorsed a plan to avoid all drugs of abuse and follow-up with the aftercare recommendations of the treatment team. Patient was evaluated and deemed to be absent credible lethality, and had achieved the maximum benefit from an inpatient hospitalization, so was discharged. Meds NPU Home Medications Medication Instructions Recorded Confirmed Last Taken Type multivitamin with folic acid 400 1 tab PO DAILY 30 Days #30 tab 06/09/21 09/22/21 Unknown Rx mcg tablet ferrous sulfate 325 mg (65 mg 325 mg PO DAILY #90 tab 07/15/21 09/22/21 Unknown Rx iron) tablet celecoxib 200 mg capsule 200 mg PO BID #60 cap 08/02/21 09/22/21 Unknown Rx tramadol 50 mg tablet 50 mg PO Q12H PRN 30 Days #30 tab 08/02/21 09/22/21 Unknown Rx hydroxyzine pamoate 50 mg capsule 50 mg PO BEDTIME PRN #30 cap 08/25/21 09/22/21 Unknown Rx trazodone 100 mg tablet 100 mg PO DAILY #30 tab 08/25/21 09/22/21 Unknown Rx Allergies Allergy/AdvReac Type Severity Reaction Status Date / Time acetaminophen [From [place]] AdvReac Mild ADR-Itching Verified 08/25/21 09:29 hydrocodone [From [place]] AdvReac Mild ADR-Itching Verified 08/25/21 09:29 PFS NPU PFSH: Medical History Alcohol dependence Has been prescribed antabuse Alcohol use disorder, severe, dependence Anxiety Arthritis of right knee Bipolar disorder Chronic post-traumatic stress disorder (PTSD) Depressive disorder History of Wernicke's encephalopathy Hx of cholecystitis Iron deficiency anemia Obesity (BMI 35.0-39.9 without comorbidity) Osteoarthritis Psychiatric care Recurrent pancreatitis Suicidal thoughts in the past Surgical History History of Hx of gastric bypass Hx of hernia repair Hx of tubal ligation Hx of unilateral salpingectomy Right Family History Other Diabetes Heart disease Social History Smoking and tobacco status: current every day smoker Alcohol intake: current History of recent travel: No Current gender identity: Female Mental Status Exam MSE Comments: This is an obese white female in hospital scrubs with limited grooming and eye contact. No abnormal movements except for psychomotor retardation and mild tremulousness. Cooperative with exam and in mild distress. Speech was decreased rate and volume. Mood described as okay, affect is congruent. Thought process organized. Thought content: Patient denied suicidal or homicidal ideation , there were no delusions reported or noted, she denied auditory or visual hallucinations. Attention and concentration were intact and memory appeared reliable but none were formally tested. She is alert and oriented x 3. Insight and judgment are limited and impulse control is impaired. Vitals/I&O/Wt Last Vital Signs Temp 98.3 F 09/22/21 05:38 Pulse 127 H 09/22/21 05:38 Resp 16 09/22/21 06:00 BP 139/78 09/22/21 05:38 Pulse Ox 99 09/22/21 05:38 09/21/21 09/22/21 09/22/21 22:59 06:59 14:59 Intake Total 0 / 0 Balance 0 / 0 Weight last 48 hrs Weight 117.934 kg Data NPU : 09/22/21 01:57 09/22/21 04:19 A&P Assessment and plan (1) Suicidal ideation: Status: Acute (2) Alcohol intoxication: Status: Acute (3) Alcohol use disorder, severe, dependence: Status: Chronic (4) Bipolar disorder: Status: Acute Qualifiers: Active/Remission status: remission status unspecified Qualified Code(s): F31.9 - Bipolar disorder, unspecified (5) Anxiety: Status: Acute (6) Arthritis of right knee: Status: Acute (7) Iron deficiency anemia: Status: Acute Qualifiers: Iron deficiency anemia type: other iron deficiency Qualified Code(s): D50.8 - Other iron deficiency anemias (8) Osteoarthritis: Status: Acute (9) Chronic post-traumatic stress disorder (PTSD): Status: Chronic (10) Obesity (BMI 35.0-39.9 without comorbidity): Status: Chronic Additional A&P Information Is a 51-year-old white female with a long history of mental health and addiction issues with significant alcohol use disorder who presents after recent relapse reporting that in general she is been managing her life much better and feels optimistic that with some mild adaptations she can continue on the right path. 1. Continue current medication. Restart Prozac 20 mg p.o. daily. 2. Continue every 15 minute checks for safety. 3. Encourage individual, group and milieu therapies. 4. Encourage sober living treatment after discharge at the highest level of care to which he is willing to commit. Involuntary Hold Information 96 Hour Hold: 96 Hour Involuntary Admission: Yes 96 Hour Hold Ending Date: 09/28/21 96 Hour Hold Ending Time: 00:48 Attestations NPU Medical Necessity Statement*: Inpatient hospitalization is medically necessary and the clinically appropriate intervention at this time. We will monitor medication to make changes as indicated. Likely length of stay 1-3 days. 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
[2021-09-22] MEDS: multivitamin therapeutic Tablet 1 TAB PO (08:43)
[2021-09-22] MEDS: folic acid 1 mg Tablet PO (08:43)
[2021-09-22] MEDS: thiamine 100 mg Tablet PO (08:43)
[2021-09-22] MEDS: ferrous sulfate EC 325 mg Tablet PO (08:43)
[2021-09-22] MEDS: CELEcoxib 200 mg Capsule PO ×2 (09:37→18:22)
[2021-09-22] MEDS: fluoxetine 20 mg Capsule PO (18:22)
[2021-09-23 06:00] VITALS: BP 119/69; PULSE 86; RESP 17; TEMP 36.7; O2SAT 97
[2021-09-23] MEDS: ferrous sulfate EC 325 mg Tablet PO (08:34)
[2021-09-23] MEDS: multivitamin therapeutic Tablet 1 TAB PO (08:34)
[2021-09-23] MEDS: thiamine 100 mg Tablet PO (08:34)
[2021-09-23] MEDS: folic acid 1 mg Tablet PO (08:34)
[2021-09-23] MEDS: CELEcoxib 200 mg Capsule PO ×2 (08:35→16:49)
[2021-09-23] MEDS: fluoxetine 20 mg Capsule PO (08:35)
[2021-09-23 14:00] VITALS: BP 147/98; PULSE 83; RESP 20; TEMP 36.8; O2SAT 96
[2021-09-23] MEDS: acetaminophen 325 mg Tablet 650 MG PO (14:46)
--- NOTE | 2021-09-23 15:15 | P.NPUPN_ITS ---
Subjective NPU Subjective: Interval history: Yeimy was today reporting that she is doing a little better. She continues to report a plan to be back at work at [employer] on Sunday. She reports that the charge family has visited her and she feels supported intermittently in her recovery care. We agreed we would meet each day and consider whether she is safe and ready to go the alcohol as well as the other challenges identifying the unlikelihood that she would stay for the extent of her 96-hour hold. Mental Status Exam MSE Comments: This is an obese white female in hospital scrubs with adequate grooming and eye contact. No abnormal movements except for mild psychomotor retardation and resolving tremulousness. Cooperative with exam and in no acute distress. Speech was decreased rate and volume. Mood described as better, affect is congruent. Thought process organized. Thought content: Patient denied suicidal or homicidal ideation , there were no delusions reported or noted, she denied auditory or visual hallucinations. Attention and concentration were intact and memory appeared reliable but none were formally tested. She is alert and oriented x 3. Insight and judgment are limited, but improving and impulse control is impaired. Vitals/I&O/Wt Last Vital Signs Temp 98.2 F 09/23/21 14:00 Pulse 83 09/23/21 14:00 Resp 20 H 09/23/21 14:00 BP 147/98 09/23/21 14:00 Pulse Ox 96 09/23/21 14:00 Weight last 48 hrs Weight 117.934 kg Data NPU : 09/22/21 01:57 09/22/21 04:19 A&P Additional A&P Information (1) Suicidal ideation: (2) Alcohol intoxication: (3) Alcohol use disorder, severe, dependence: (4) Bipolar disorder: (5) Anxiety: (6) Arthritis of right knee: (7) Iron deficiency anemia: (8) Osteoarthritis: (9) Chronic post-traumatic stress disorder (PTSD): (10) Obesity (BMI 35.0-39.9 without comorbidity): Additional A&P Information Is a 51-year-old white female with a long history of mental health and addiction issues with significant alcohol use disorder who presents after recent relapse reporting that in general she is been managing her life much better and feels optimistic that with some mild adaptations she can continue on the right path. 1. Continue current medication. Restarted Prozac 20 mg p.o. daily. 2. Continue every 15 minute checks for safety. 3. Encourage individual, group and milieu therapies. 4. Encourage sober living treatment after discharge at the highest level of care to which he is willing to commit. Involuntary Hold Information 96 Hour Hold: 96 Hour Involuntary Admission: Yes 96 Hour Hold Ending Date: 09/28/21 96 Hour Hold Ending Time: 00:48 Attestations NPU Medical Necessity Statement*: Inpatient hospitalization is medically necessary and the clinically appropriate intervention at this time. We will monitor medication to make changes as indicated. Likely length of stay 1-3 days. 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
[2021-09-23] MEDS: hyDROXYzine 25 mg Capsule 50 MG PO ×2 (16:29→20:48)
[2021-09-23] MEDS: ondansetron 4 MG Tablet PO (16:30)
[2021-09-23] MEDS: trazodone 100 mg Tablet PO (20:48)
[2021-09-23 21:20] VITALS: BP 138/97; PULSE 84; RESP 18; TEMP 36.9; O2SAT 99
[2021-09-24 06:00] VITALS: BP 117/95; PULSE 104; RESP 18; TEMP 36.8; O2SAT 98
[2021-09-24] MEDS: ondansetron 4 MG Tablet PO (07:32)
[2021-09-24] MEDS: thiamine 100 mg Tablet PO (09:19)
[2021-09-24] MEDS: folic acid 1 mg Tablet PO (09:19)
[2021-09-24] MEDS: fluoxetine 20 mg Capsule PO (09:19)
[2021-09-24] MEDS: CELEcoxib 200 mg Capsule PO (09:19)
[2021-09-24] MEDS: multivitamin therapeutic Tablet 1 TAB PO (09:19)
[2021-09-24] MEDS: ferrous sulfate EC 325 mg Tablet PO (09:19)
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
[2021-09-24 13:21] VITALS: BP 117/95; PULSE 104; RESP 18; TEMP 36.8; O2SAT 98
== END 2021-09-24 13:44 | disposition home or self-care (01) | DRG 885 ==
LOC: ER 04:48 → NP 05:12
PROVIDERS: Admitting Provider Psychiatry & Neurology Psychiatry; Emergency Provider Emergency Medicine; PCP Family Medicine Adult Medicine; Visit Provider Psychiatry & Neurology Psychiatry
DX: F31.9 Bipolar disorder, unspecified (principal); R45.851 Suicidal ideations; E87.2 Acidosis; F10.229 Alcohol dependence with intoxication, unspecified; F41.9 Anxiety disorder, unspecified; F43.12 Post-traumatic stress disorder, chronic; F17.210 Nicotine dependence, cigarettes, uncomplicated; E66.9 Obesity, unspecified; Z68.39 Body mass index [BMI] 39.0-39.9, adult; D50.9 Iron deficiency anemia, unspecified; M17.11 Unilateral primary osteoarthritis, right knee
CPT/HCPCS: 36415; 80048; 80053; 80306; 80307; 82803; 85025; 96372; 97150; 97165; 99285; J3411; J7030; Q0162

== ENCOUNTER 2021-10-11 09:05 | Outpatient (CLI) | payer MEDICAID, SELFPAY ==
--- NOTE | 2021-10-11 09:16 | XR_ITS ---
WS: [id number] Exam: XR knee RT 3V* [id number] Date/Time of Exam: 10/11/2021 9:16 AM Reason For Exam: bilateral knee pain Comparison 02/27/2021. No acute fracture noted. No joint effusion. Minimal DJD of the medial joint compartment. Mild spurrin g of the tibial spines. XR/XR knee RT 3V* [id number] IMPRESSION: 1. No fracture or joint effusion. 2. Mild degenerative changes of the medial joint compartment.
--- NOTE | 2021-10-11 09:16 | XR_ITS ---
WS: [id number] Exam: XR knee LT 3V* [id number] Date/Time of Exam: 10/11/2021 9:16 AM Reason For Exam: bilateral knee pain No fracture or dislocation. No joint effusion. Joint compartments are well-maintained. Prominent spur seen along the anterior superior margin of the patella. XR/XR knee LT 3V* [id number] IMPRESSION: 1. Spurring of the superior patella. The left knee is otherwise unremarkable.
== END 2021-10-11 09:06 | disposition home or self-care (01) ==
PROVIDERS: PCP Family Medicine Adult Medicine; Visit Provider Family Medicine Adult Medicine
DX: M25.562 Pain in left knee (principal); M25.561 Pain in right knee
CPT/HCPCS: 73562

== ENCOUNTER 2021-10-21 09:57 | Emergency (ER) | payer MEDICAID, SELFPAY ==
[2021-10-21 10:02] VITALS: BP 133/84; PULSE 66; RESP 16; TEMP 36.8; O2SAT 97; BMI 40.7
--- NOTE | 2021-10-21 10:30 | ED_ITS ---
HPI - Extremity Problem General: Chief complaint: Extremity Injury, Lower Stated complaint: L KNEE PAIN Time Seen by Provider: 10/21/21 10:02 Source: patient Mode of arrival: ambulatory Limitations: no limitations History of Present Illness: HPI Narrative: 51-year-old female presents to the ER today for left knee pain x3 weeks. Patient reports she was stacking something several weeks ago when the pain started. Patient has been seen by her PCP a couple of times for this. Patient was given hydrocodone 5/325 and also had an x-ray done. X-ray showed bones spurs but was otherwise unremarkable. Patient reports she is out of the hydrocodone's. Patient reports they did not help the pain much anyway. She reports pain is worse with weightbearing and also when trying to get out of a chair. Patient reports swelling in the knee. She denies any prior injury to this knee. She is taking meloxicam but is unsure of the dose. MD Complaint: extremity pain and extremity swelling Onset (ago): week(s) Pain Consistency: constant Location: left and knee Severity scale (1-10): 7 Quality: aching Radiation: none Relieving factors: rest Exacerbating factors: range of motion, weight bearing and walking Review of Systems General: Reports: 10 or more systems reviewed and unremarkable except in HPI and below PFSH ED PFSH: Medical History Alcohol dependence Has been prescribed antabuse Alcohol use disorder, severe, dependence Anxiety Bipolar disorder Chronic post-traumatic stress disorder (PTSD) Depressive disorder History of Wernicke's encephalopathy Hx of cholecystitis Iron deficiency anemia Left knee pain Obesity (BMI 35.0-39.9 without comorbidity) Osteoarthritis involving multiple joints on both sides of body Psychiatric care Recurrent pancreatitis Suicidal thoughts in the past Surgical History History of Hx of gastric bypass Hx of hernia repair Hx of tubal ligation Hx of unilateral salpingectomy Right Family History Other Diabetes Heart disease Social History Alcohol intake: current History of recent travel: No Current gender identity: Female Female Reproductive History: Date of last menstrual period: 05/25/21 Physical Exam Const: COMMON NORMALS: patient oriented x3, no limitations and healthy appearing GENERAL APPEARANCE: cooperative NUTRITIONAL APPEARANCE: obese Neck/C-Spine: COMMON NORMALS: full ROM Resp: COMMON NORMALS: normal respiratory effort and clear to auscultation bilaterally EFFORT & INSPECTION: Yes able to speak in complete sentences AUSCULTATION: clear to auscultation bilaterally, no rales, no rhonchi and no wheezes Cardio: COMMON NORMALS: regular rate and regular rhythm RATE: regular rate RHYTHM: regular rhythm Extremity: COMMON NORMALS: normal to inspection LEFT LOWER EXTREMITY: Yes knee joint Left knee: Yes inspection (normal- minimal swelling noted), Yes palpation (TTP medially; meniscus is non tender) and Yes ROM (pain with ROM and flexion/extension however pt able to do so) Neuro: COMMON NORMALS: patient oriented x3 and moves all extremities Psych: COMMON NORMALS: mental status grossly normal, Normal thought process present and cooperative THOUGHT PROCESS: Normal thought process present Skin: COMMON NORMALS: no rashes or lesions noted GENERAL SKIN EXAM: no rashes or lesions noted Course ED course: Patient presents to the ER today for left knee pain. She has been prescribed hydrocodone and had an x-ray done. She is out of the hydrocodone and presents to the ER for pain control. Vital Signs: Vital signs: Vital Signs Temperature 98.2 F 10/21/21 10:02 Pulse Rate 66 10/21/21 10:02 Respiratory Rate 16 10/21/21 10:02 Blood Pressure 133/84 10/21/21 10:02 Pulse Oximetry 97 10/21/21 10:02 Critical Care Time Critical Care Time: Critical Care Time: No MDM - Extremity (Nontraumatic) MDM Narrative: Medical decision making narrative: 51-year-old female presents to the ER today for left knee pain x3 weeks. Patient reports she was stacking boxes when this occurred. She is seen her PCP a couple of times and was given hydrocodone 5/325 and also had an x-ray done which showed bone spurs. Patient reports continued pain and that the hydrocodone was not working well. I discussed with patient that likely we would not prescribe the hydrocodone today since it was not working well anyway. We will increase her meloxicam from 7.5mg to 15 mg/day. We will also add a Medrol Dosepak to see if that helps with patient's inflammation. Patient given an Dashawn wrap and recommend she wear that for support. Rest, ice, elevation recommended. Follow-up with PCP to discuss further imaging. Patient verbalized understanding and is in agreement with the treatment plan Discharge Plan Discharge Patient Disposition: Home Clinical Impression: Acute pain of left knee Condition: Stable Prescriptions: New meloxicam 15 mg tablet 15 mg PO DAILY Qty: 30 RF: 0 Medrol (Den) 4 mg tablets,dose pack See Rx Instructions PO .COMPLEX Qty: 21 RF: 0 No Action trazodone 100 mg tablet 100 mg PO DAILY Qty: 30 RF: 5 hydroxyzine pamoate 50 mg capsule 50 mg PO BEDTIME PRN (Reason: anxiety/insomnia) Qty: 30 RF: 5 fluoxetine 40 mg capsule 40 mg PO QAM Qty: 30 RF: 1 Thera 400 mcg tablet 1 tab PO DAILY 30 Days Qty: 30 RF: 12 ferrous sulfate 325 mg (65 mg iron) tablet 325 mg PO DAILY Qty: 90 RF: 3 gabapentin 300 mg capsule 300 mg PO TID Qty: 90 RF: 0 meloxicam 7.5 mg tablet 7.5 mg PO BIDWMEAL Qty: 60 RF: 3 Vitamin B-1 (mononitrate) 100 mg Tablet 100 mg PO DAILY 30 Days Qty: 30 RF: 1 Discharge Orders: Discharge ED (Routine); Ordered 10/21/21 Ordered By: Maty Frazier Referrals: Da Myles MD [Primary Care Provider] - Discharge Diet: Advance as tolerated Discharge Activity: Resume usual activity Patient Instructions: Opioid Safety Activity Restrictions/Additional Instructions: Wear Dashawn wrap as discussed. Rest, ice, elevation recommended to reduce swelling. Take Medrol Dosepak and meloxicam as prescribed. Okay to also take Tylenol but do not take ibuprofen. Follow-up with PCP in 3 to 5 days to discuss further imaging. Return to the ER with new or worsening symptoms. Coding Level of Care Code ED [employer] for [facility]
--- NOTE | 2021-10-21 10:45 | PC.NURSE ---
reviewed discharge instructions with patient, patient verbalizes understanding of all instructions, new medications and follow up, patient ambulated with PVC pipe 'cane' from the ED
== END 2021-10-21 10:46 | disposition home or self-care (01) ==
PROVIDERS: Emergency Provider Physician Assistant; PCP Family Medicine Adult Medicine
DX: M25.562 Pain in left knee (principal)
CPT/HCPCS: 99282

== ENCOUNTER 2021-11-07 14:27 | Inpatient (IN) | payer MEDICAID, SELFPAY ==
[2021-11-07] VITALS (8 sets, daily range): BP systolic 151–178; BP diastolic 88–109; PULSE 103–127; RESP 16–24; TEMP 37–37.2; O2SAT 99–100
--- NOTE | 2021-11-07 14:35 | ECG_ITS ---
[facility] Test Date: 2021-11-07 Pat Name: Yeimy Perry Department: Room: Gender: Female [employer] Selector: : 1970 Requested By: Aldo Gardner Order Number: [id number] Reading MD: JASMINA WALKER Measurements Intervals [place] Rate: 121 P: 172 MN: 234 QRS: 79 QRSD: 85 T: 72 QT: 354 QTc: 504 Interpretive Statements ECTOPIC ATRIAL TACHYCARDIA WITH FIRST DEGREE AV BLOCK Compared to ECG 06/15/2021 10:14:44 First degree AV block now present Sinus rhythm no longer present Electronically Signed On 11-07-2021 20:53:00 RECREATIONAL AIDE by JASMINA WALKER [id number]
--- NOTE | 2021-11-07 14:36 | XR_ITS ---
WS: [id number] Exam: XR chest 1V portable [id number] Date/Time of Exam: 11/07/2021 2:45 PM Reason For Exam: dyspnea/cough Comparison 06/17/2021. Findings: The lungs are clear and fully expanded. Costophrenic angles are sharp. No infiltrates. Bronchovascula r relief appears normal. Cardiac silhouette is unremarkable. Bony elements are intact. XR/XR chest 1V portable [id number] IMPRESSION: Unremarkable chest radiograph.
--- NOTE | 2021-11-07 14:52 | ED_ITS ---
Documented by User: Aldo Jenkins DO 11/16/21 08:23 HPI - GI Bleed General: Chief complaint: ER Hold Stated complaint: N/V/D Time Seen by Provider: 11/07/21 14:45 History of Present Illness: HPI Narrative: 51-year-old female presents emergency room complaining of upset stomach dyspepsia. She is a longtime heavy alcohol user in the last 24 hours is drank over 2 pints of hard liquor. States her last drink was about 4 to 5 hours ago. She had some blood-streaked emesis and blood-streaked stool this afternoon and she called EMS. She has been drinking heavily for the last couple of days. She has had this in the past as well. She denies any known history of esophageal varices. MD complaint: blood streaked emesis and blood streaked stool Onset (ago): hour(s) Severity: moderate Relieving factors: none Exacerbating factors: none Context: history of GI bleed and alcohol abuse Associated symptoms: Reports abdominal pain, malaise, nausea and poor appetite; Denies chills, easy bruising, epistaxis, fever(s), headache(s), other bleeding, rash, syncope, vomiting or weakness Treatments Prior to Arrival: none Review of Systems Const: Reports: malaise; Denies: fever(s) or chills ENMT: Denies: epistaxis Card: Denies: syncope GI: Reports: abdominal pain and nausea; Denies: vomiting Skin/Breast: Denies: rash Neuro: Denies: headache(s) Marlon/Lymph: Denies: easy bruising PFSH ED PFSH: Medical History Alcohol dependence Has been prescribed antabuse Alcohol use disorder, severe, dependence Anxiety Bipolar disorder Chronic post-traumatic stress disorder (PTSD) Depressive disorder History of Wernicke's encephalopathy Hx of cholecystitis Iron deficiency anemia Left knee pain Obesity (BMI 35.0-39.9 without comorbidity) Osteoarthritis involving multiple joints on both sides of body Psychiatric care Recurrent pancreatitis Suicidal thoughts in the past Surgical History History of Hx of gastric bypass Hx of hernia repair Hx of tubal ligation Hx of unilateral salpingectomy Right Family History Other Diabetes Heart disease Social History Alcohol intake: current History of recent travel: No Current gender identity: Female Female Reproductive History: Date of last menstrual period: 05/25/21 Physical Exam Const: GENERAL APPEARANCE: cooperative and comfortable ORIENTATION/CONSCIOU SNESS: Yes awake, Yes oriented to person, Yes oriented to place and Yes oriented to time HENMT: COMMON NORMALS: normocephalic, atraumatic and hearing grossly normal bilaterally HEAD & SCALP: normocephalic and atraumatic Neck/C-Spine: COMMON NORMALS: no JVD Resp: COMMON NORMALS: normal respiratory effort, No retractions, No use of accessory muscles and clear to auscultation bilaterally AUSCULTATION: clear to auscultation bilaterally Cardio: COMMON NORMALS: no JVD, regular rate, regular rhythm and No murmurs present (Cardio) RATE: regular rate RHYTHM: regular rhythm GI: COMMON NORMALS: Soft to palpation and No hepatosplenomegaly present AUSCULTATION: Yes normoactive bowel sounds PALPATION: Yes Soft to palpation, No Tenderness to palpation present (GI), No Guarding due to palpation present (GI) and Yes No hepatosplenomegaly present Extremity: COMMON NORMALS: normal to inspection, capillary refill normal, no clubbing, cyanosis or edema, no calf tenderness and no pedal edema Neuro: SENSORIUM/ORIENTATION: Yes oriented to person, Yes oriented to place and Yes oriented to time Skin: COMMON NORMALS: no rashes or lesions noted GENERAL SKIN EXAM: no rashes or lesions noted Course Vital Signs: Vital signs: Vital Signs Temperature 98.1 F 11/10/21 08:00 Pulse Rate 84 11/10/21 08:00 Respiratory Rate 16 11/10/21 08:00 Blood Pressure 153/95 11/10/21 08:00 Pulse Oximetry 99 11/10/21 08:00 MDM - GI Bleed MDM Narrative Medical decision making narrative: Care turned over to Dr. Sarabia at change of see his note final diagnosis and disposition. Labs pending at this time. Lab Data Result diagrams: 11/10/21 05:20 11/10/21 05:20 Labs: Lab Results 11/07/21 11/07/21 11/07/21 16:20 16:20 16:20 WBC 8.4 10^3/uL 10^3/uL (4.0-10.0) RBC 4.87 10^6/uL 10^6/uL (4.1-5.3) Hgb 15.2 g/dL g/dL (11.5-15.3) Hct 46.9 % % (37.0-47.0) MCV 96.3 fl fl (81-99) MCH 31.2 pg pg (28.0-34.0) MCHC 32.4 g/dL g/dL (30.0-36.0) RDW 13.2 % % (12.1-15.1) Plt Count 158 10^3/cmm 10^3/cmm (130-400) MPV 10.0 fL fL (7.4-10.4) Neut % (Auto) 84.7 % % Lymph % (Auto) 9.0 % % [place] % (Auto) 5.6 % % Eos % (Auto) 0.1 % % Baso % (Auto) 0.2 % % Neut # (Auto) 7.15 10^3/uL 10^3/uL (1.8-7.7) Lymph # (Auto) 0.8 10^3/uL 10^3/uL (0.8-4.8) [place] # (Auto) 0.5 10^3/uL 10^3/uL (0.2-0.9) Eos # (Auto) 0.0 10^3/uL 10^3/uL (0.0-0.8) Baso # (Auto) 0.0 10^3/uL 10^3/uL (0.0-0.1) Nucleated RBC % (auto) 0 % % Nucleated RBCs # 0.0 /100WBC /100WBC PT INR APTT Specimen Type Sample Site ABG pH ABG pCO2 ABG pO2 ABG HCO3 ABG Base Excess Lamin Test Hematocrit O2 Delivery Device FiO2 Integrative Medicine Physician ID Sodium 136 mmol/L mmol/L (136-145) Potassium 4.3 mmol/L mmol/L (3.5-5.1) Chloride 88 mmol/L L mmol/L (98-107) Carbon Dioxide 17 mmol/L L mmol/L (22-29) Anion Gap 35.3 H (5-19) BUN 10 mg/dL mg/dL (6-20) Creatinine 0.5 mg/dL mg/dL (0.5-0.9) GFR Calculation 131.1 mL/min H mL/min (90-130) Glucose 113 mg/dL mg/dL (65-115) Calculated Osmolality 282 mOsm/kg L mOsm/kg (285-295) Lactic Acid Lactic Acid (Sepsis) Calcium 8.1 mg/dL L mg/dL (8.5-10.5) Phosphorus Magnesium Total Bilirubin 1.2 mg/dL mg/dL (0.15-1.2) AST 81 U/L H U/L (0-32) ALT 58 U/L H U/L (0-33) Alkaline Phosphatase 121 IU/L H IU/L (35-105) Total Protein 6.7 g/dL g/dL (6.6-8.7) Albumin 3.9 g/dL g/dL (3.5-5.2) Globulin 2.8 g/dL g/dL (1.3-4.6) Lipase 16 U/L U/L (13-60) Vitamin B12 Procalcitonin Urine Color Urine Appearance Urine pH Ur Specific [place] Urine Protein Urine Glucose (UA) Urine Ketones Urine Blood Urine Nitrate Urine Bilirubin Urine Urobilinogen Ur Leukocyte Esterase Urine RBC Urine WBC Ur Squamous Epith Cells Amorphous Sediment Urine Bacteria Ethyl Alcohol SARS-CoV-2 Ag (Rapid) 11/07/21 11/07/21 11/07/21 19:16 20:13 20:13 WBC RBC Hgb Hct MCV MCH MCHC RDW Plt Count MPV Neut % (Auto) Lymph % (Auto) [place] % (Auto) Eos % (Auto) Baso % (Auto) Neut # (Auto) Lymph # (Auto) [place] # (Auto) Eos # (Auto) Baso # (Auto) Nucleated RBC % (auto) Nucleated RBCs # PT 14.30 SECONDS SECONDS (12.1-14.9) INR 1.08 (0.8-1.2) APTT 23.0 SECONDS L SECONDS (23.9-36.7) Specimen Type Sample Site ABG pH ABG pCO2 ABG pO2 ABG HCO3 ABG Base Excess Lamin Test Hematocrit O2 Delivery Device FiO2 Integrative Medicine Physician ID Sodium Potassium Chloride Carbon Dioxide Anion Gap BUN Creatinine GFR Calculation Glucose Calculated Osmolality Lactic Acid 5.7 mmol/L H* mmol/L (0.5-2.2) Lactic Acid (Sepsis) Calcium Phosphorus Magnesium Total Bilirubin AST ALT Alkaline Phosphatase Total Protein Albumin Globulin Lipase Vitamin B12 Procalcitonin Urine Color Dark yellow (Yellow) Urine Appearance Hazy A (CLEAR) Urine pH 5 (5-7) Ur Specific [place] 1.025 (1.005-1.030) Urine Protein 2+ H (Negative) Urine Glucose (UA) Norm (Normal) Urine Ketones 3+ H (Negative) Urine Blood 3+ H (Negative) Urine Nitrate Negative (Negative) Urine Bilirubin 1+ H (Negative) Urine Urobilinogen 4 mg/dL H mg/dL (Negative) Ur Leukocyte Esterase Trace H (Negative) Urine RBC 0-4 /hpf H /hpf (0-2) Urine WBC 5-10 /hpf H /hpf (0-5) Ur Squamous Epith Cells 0-4 /hpf H /hpf (0-5) Amorphous Sediment 4+ /hpf /hpf Urine Bacteria Trace /hpf /hpf (NONE) Ethyl Alcohol SARS-CoV-2 Ag (Rapid) 11/07/21 11/07/21 11/07/21 21:35 21:52 22:10 WBC RBC Hgb Hct MCV MCH MCHC RDW Plt Count MPV Neut % (Auto) Lymph % (Auto) [place] % (Auto) Eos % (Auto) Baso % (Auto) Neut # (Auto) Lymph # (Auto) [place] # (Auto) Eos # (Auto) Baso # (Auto) Nucleated RBC % (auto) Nucleated RBCs # PT INR APTT Specimen Type Arterial Sample Site Radial, right ABG pH 7.52 H (7.35-7.45) ABG pCO2 27.3 mmHg L mmHg (35-45) ABG pO2 89.1 mmHg mmHg (80.0-100.0) ABG HCO3 26.6 mmol/L H mmol/L (22-26) ABG Base Excess 5.6 mmol/L H mmol/L (-2.0-2.0) Lamin Test Pos Hematocrit 37.6 % % (37-47) O2 Delivery Device Room air FiO2 21.0 % % Integrative Medicine Physician ID ellpe Sodium 130 mmol/L L mmol/L (136-145) Potassium 3.9 mmol/L mmol/L (3.5-5.1) Chloride 89 mmol/L L mmol/L (98-107) Carbon Dioxide 23 mmol/L mmol/L (22-29) Anion Gap 21.9 H (5-19) BUN 10 mg/dL mg/dL (6-20) Creatinine 0.7 mg/dL mg/dL (0.5-0.9) GFR Calculation 88.9 mL/min L mL/min (90-130) Glucose 262 mg/dL H mg/dL (65-115) Calculated Osmolality 278 mOsm/kg L mOsm/kg (285-295) Lactic Acid Lactic Acid (Sepsis) Calcium 7.3 mg/dL L mg/dL (8.5-10.5) Phosphorus Magnesium Total Bilirubin AST ALT Alkaline Phosphatase Total Protein Albumin Globulin Lipase Vitamin B12 Procalcitonin Urine Color Urine Appearance Urine pH Ur Specific [place] Urine Protein Urine Glucose (UA) Urine Ketones Urine Blood Urine Nitrate Urine Bilirubin Urine Urobilinogen Ur Leukocyte Esterase Urine RBC Urine WBC Ur Squamous Epith Cells Amorphous Sediment Urine Bacteria Ethyl Alcohol < 10 mg/dL mg/dL (0-10) SARS-CoV-2 Ag (Rapid) Negative (Negative) 11/07/21 11/08/21 11/08/21 22:10 06:18 06:18 WBC 5.6 10^3/uL 10^3/uL (4.0-10.0) RBC 3.59 10^6/uL L 10^6/uL (4.1-5.3) Hgb 11.1 g/dL L g/dL (11.5-15.3) Hct 33.4 % L % (37.0-47.0) MCV 93.0 fl fl (81-99) MCH 30.9 pg pg (28.0-34.0) MCHC 33.2 g/dL g/dL (30.0-36.0) RDW 13.2 % % (12.1-15.1) Plt Count 99 10^3/cmm L D 10^3/cmm (130-400) MPV 10.5 fL H fL (7.4-10.4) Neut % (Auto) 66.8 % % Lymph % (Auto) 22.7 % % [place] % (Auto) 8.2 % % Eos % (Auto) 1.4 % % Baso % (Auto) 0.5 % % Neut # (Auto) 3.76 10^3/uL 10^3/uL (1.8-7.7) Lymph # (Auto) 1.3 10^3/uL 10^3/uL (0.8-4.8) [place] # (Auto) 0.5 10^3/uL 10^3/uL (0.2-0.9) Eos # (Auto) 0.1 10^3/uL 10^3/uL (0.0-0.8) Baso # (Auto) 0.0 10^3/uL 10^3/uL (0.0-0.1) Nucleated RBC % (auto) 0 % % Nucleated RBCs # 0.0 /100WBC /100WBC PT INR APTT Specimen Type Sample Site ABG pH ABG pCO2 ABG pO2 ABG HCO3 ABG Base Excess Lamin Test Hematocrit O2 Delivery Device FiO2 Integrative Medicine Physician ID Sodium 134 mmol/L L mmol/L (136-145) Potassium 3.7 mmol/L mmol/L (3.5-5.1) Chloride 98 mmol/L mmol/L (98-107) Carbon Dioxide 26 mmol/L mmol/L (22-29) Anion Gap 13.7 (5-19) BUN 7 mg/dL mg/dL (6-20) Creatinine 0.5 mg/dL mg/dL (0.5-0.9) GFR Calculation 131.1 mL/min H mL/min (90-130) Glucose 94 mg/dL mg/dL (65-115) Calculated Osmolality 276 mOsm/kg L mOsm/kg (285-295) Lactic Acid Lactic Acid (Sepsis) 6.3 mmol/L H* mmol/L (0.5-2.2) Calcium 6.8 mg/dL L mg/dL (8.5-10.5) Phosphorus Magnesium Total Bilirubin 1.6 mg/dL H mg/dL (0.15-1.2) AST 61 U/L H U/L (0-32) ALT 45 U/L H U/L (0-33) Alkaline Phosphatase 94 IU/L IU/L (35-105) Total Protein 4.9 g/dL L D g/dL (6.6-8.7) Albumin 3.1 g/dL L g/dL (3.5-5.2) Globulin 1.8 g/dL g/dL (1.3-4.6) Lipase Vitamin B12 Procalcitonin Urine Color Urine Appearance Urine pH Ur Specific [place] Urine Protein Urine Glucose (UA) Urine Ketones Urine Blood Urine Nitrate Urine Bilirubin Urine Urobilinogen Ur Leukocyte Esterase Urine RBC Urine WBC Ur Squamous Epith Cells Amorphous Sediment Urine Bacteria Ethyl Alcohol SARS-CoV-2 Ag (Rapid) 11/08/21 11/08/21 11/09/21 06:18 06:18 02:44 WBC 4.3 10^3/uL 10^3/uL (4.0-10.0) RBC 3.98 10^6/uL L 10^6/uL (4.1-5.3) Hgb 12.2 g/dL g/dL (11.5-15.3) Hct 37.6 % % (37.0-47.0) MCV 94.5 fl fl (81-99) MCH 30.7 pg pg (28.0-34.0) MCHC 32.4 g/dL g/dL (30.0-36.0) RDW 13.2 % % (12.1-15.1) Plt Count 79 10^3/cmm L 10^3/cmm (130-400) MPV 10.2 fL fL (7.4-10.4) Neut % (Auto) 64.7 % % Lymph % (Auto) 22.5 % % [place] % (Auto) 7.0 % % Eos % (Auto) 4.9 % % Baso % (Auto) 0.2 % % Neut # (Auto) 2.76 10^3/uL 10^3/uL (1.8-7.7) Lymph # (Auto) 1.0 10^3/uL 10^3/uL (0.8-4.8) [place] # (Auto) 0.3 10^3/uL 10^3/uL (0.2-0.9) Eos # (Auto) 0.2 10^3/uL 10^3/uL (0.0-0.8) Baso # (Auto) 0.0 10^3/uL 10^3/uL (0.0-0.1) Nucleated RBC % (auto) 0 % % Nucleated RBCs # 0.0 /100WBC /100WBC PT INR APTT Specimen Type Sample Site ABG pH ABG pCO2 ABG pO2 ABG HCO3 ABG Base Excess Lamin Test Hematocrit O2 Delivery Device FiO2 Integrative Medicine Physician ID Sodium Potassium Chloride Carbon Dioxide Anion Gap BUN Creatinine GFR Calculation Glucose Calculated Osmolality Lactic Acid 1.0 mmol/L mmol/L (0.5-2.2) Lactic Acid (Sepsis) Calcium Phosphorus Magnesium Total Bilirubin AST ALT Alkaline Phosphatase Total Protein Albumin Globulin Lipase Vitamin B12 Procalcitonin 0.11 ng/mL ng/mL (0-0.5) Urine Color Urine Appearance Urine pH Ur Specific [place] Urine Protein Urine Glucose (UA) Urine Ketones Urine Blood Urine Nitrate Urine Bilirubin Urine Urobilinogen Ur Leukocyte Esterase Urine RBC Urine WBC Ur Squamous Epith Cells Amorphous Sediment Urine Bacteria Ethyl Alcohol SARS-CoV-2 Ag (Rapid) 11/09/21 11/09/21 11/09/21 02:44 02:44 02:44 WBC RBC Hgb Hct MCV MCH MCHC RDW Plt Count MPV Neut % (Auto) Lymph % (Auto) [place] % (Auto) Eos % (Auto) Baso % (Auto) Neut # (Auto) Lymph # (Auto) [place] # (Auto) Eos # (Auto) Baso # (Auto) Nucleated RBC % (auto) Nucleated RBCs # PT INR APTT Specimen Type Sample Site ABG pH ABG pCO2 ABG pO2 ABG HCO3 ABG Base Excess Lamin Test Hematocrit O2 Delivery Device FiO2 Integrative Medicine Physician ID Sodium 138 mmol/L mmol/L (136-145) Potassium 3.1 mmol/L L mmol/L (3.5-5.1) Chloride 100 mmol/L mmol/L (98-107) Carbon Dioxide 26 mmol/L mmol/L (22-29) Anion Gap 15.1 (5-19) BUN 4 mg/dL L mg/dL (6-20) Creatinine 0.7 mg/dL mg/dL (0.5-0.9) GFR Calculation 88.9 mL/min L mL/min (90-130) Glucose 121 mg/dL H mg/dL (65-115) Calculated Osmolality 284 mOsm/kg L mOsm/kg (285-295) Lactic Acid Lactic Acid (Sepsis) Calcium 7.6 mg/dL L mg/dL (8.5-10.5) Phosphorus 1.9 mg/dL L mg/dL (2.5-4.5) Magnesium 1.4 mg/dL L mg/dL (1.7-2.3) Total Bilirubin 0.7 mg/dL mg/dL (0.15-1.2) AST 73 U/L H U/L (0-32) ALT 49 U/L H U/L (0-33) Alkaline Phosphatase 96 IU/L IU/L (35-105) Total Protein 5.6 g/dL L g/dL (6.6-8.7) Albumin 3.1 g/dL L g/dL (3.5-5.2) Globulin 2.5 g/dL g/dL (1.3-4.6) Lipase Vitamin B12 343 pg/mL pg/mL (232-1245) Procalcitonin Urine Color Urine Appearance Urine pH Ur Specific [place] Urine Protein Urine Glucose (UA) Urine Ketones Urine Blood Urine Nitrate Urine Bilirubin Urine Urobilinogen Ur Leukocyte Esterase Urine RBC Urine WBC Ur Squamous Epith Cells Amorphous Sediment Urine Bacteria Ethyl Alcohol SARS-CoV-2 Ag (Rapid) Discharge Plan Discharge Patient Disposition: Admitted As Inpatient Admit Provider: Mundo Nascimento Clinical Impression: Lactic acidosis, Hyponatremia, Alcohol use disorder, severe, dependence, Dehydration Condition: Stable Discharge Diet: Regular Discharge Activity: Increase activity as tolerated Coding Level of Care Code 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 Documented by User: Jerri Sarabia MD 11/08/21 00:33 HPI - GI Bleed General: Chief complaint: ER Hold Stated complaint: N/V/D Time Seen by Provider: 11/07/21 14:45 History of Present Illness: Associated symptoms: Reports abdominal pain, nausea and vomiting; Denies chills, easy bruising, fever(s), headache(s) or rash Review of Systems Const: Denies: fever(s), chills, body aches or change in appetite Eyes: Denies: blurry vision or eye discomfort ENMT: Denies: throat pain or dental pain Card: Denies: chest pain Resp: Denies: dyspnea GI: Reports: abdominal pain, nausea and vomiting; Denies: diarrhea : Denies: dysuria Musc: Denies: neck pain or back pain Skin/Breast: Denies: rash Neuro: Denies: headache(s) Psych: Denies: depression Marlon/Lymph: Denies: easy bruising All/Imm: Denies: urticaria PFSH ED PFSH: Medical History Alcohol dependence Has been prescribed antabuse Alcohol use disorder, severe, dependence Anxiety Bipolar disorder Chronic post-traumatic stress disorder (PTSD) Depressive disorder History of Wernicke's encephalopathy Hx of cholecystitis Iron deficiency anemia Left knee pain Obesity (BMI 35.0-39.9 without comorbidity) Osteoarthritis involving multiple joints on both sides of body Psychiatric care Recurrent pancreatitis Suicidal thoughts in the past Surgical History History of Hx of gastric bypass Hx of hernia repair Hx of tubal ligation Hx of unilateral salpingectomy Right Family History Other Diabetes Heart disease Social History Alcohol intake: current History of recent travel: No Current gender identity: Female Physical Exam Const: COMMON NORMALS: no acute distress, patient oriented x3 and healthy appearing HENMT: COMMON NORMALS: normocephalic and atraumatic HEAD & SCALP: normocephalic and atraumatic Eye: COMMON NORMALS: Equal, round and reactive pupils present and EOMs intact bilaterally PUPIL: Yes Equal, round and reactive pupils present Neck/C-Spine: COMMON NORMALS: full ROM and supple Chest: COMMONS NORMALS: normal inspection of the chest and normal palpation of entire chest wall Resp: COMMON NORMALS: normal respiratory effort, No retractions, No use of accessory muscles and clear to auscultation bilaterally AUSCULTATION: clear to auscultation bilaterally Cardio: COMMON NORMALS: regular rate, regular rhythm and No murmurs present (Cardio) RATE: regular rate RHYTHM: regular rhythm GI: COMMON NORMALS: Normal to inspection, nondistended, normoactive bowel sounds present, Soft to palpation, non-tender and no masses PALPATION: Yes Soft to palpation Extremity: COMMON NORMALS: normal to inspection and full ROM Neuro: COMMON NORMALS: patient oriented x3, moves all extremities and no focal motor deficits Psych: COMMON NORMALS: mental status grossly normal, Normal thought process present and cooperative THOUGHT PROCESS: Normal thought process present Skin: COMMON NORMALS: no rashes or lesions noted and no wounds GENERAL SKIN EXAM: no rashes or lesions noted Course Vital Signs: Vital signs: Vital Signs Temperature 98.1 F 11/10/21 08:00 Pulse Rate 84 11/10/21 08:00 Respiratory Rate 16 11/10/21 08:00 Blood Pressure 153/95 11/10/21 08:00 Pulse Oximetry 99 11/10/21 08:00 MDM - GI Bleed MDM Narrative Medical decision making narrative: Patient presents with a history of alcoholism has dehydration along with a lactic acidosis and vomiting patient has no signs of infection here did send off blood cultures anion gap improved after IV fluids spoke to hospitalist will admit for observation at this time. Lab Data Result diagrams: 11/10/21 05:20 11/10/21 05:20 Labs: Lab Results 11/07/21 11/07/21 11/07/21 16:20 16:20 16:20 WBC 8.4 10^3/uL 10^3/uL (4.0-10.0) RBC 4.87 10^6/uL 10^6/uL (4.1-5.3) Hgb 15.2 g/dL g/dL (11.5-15.3) Hct 46.9 % % (37.0-47.0) MCV 96.3 fl fl (81-99) MCH 31.2 pg pg (28.0-34.0) MCHC 32.4 g/dL g/dL (30.0-36.0) RDW 13.2 % % (12.1-15.1) Plt Count 158 10^3/cmm 10^3/cmm (130-400) MPV 10.0 fL fL (7.4-10.4) Neut % (Auto) 84.7 % % Lymph % (Auto) 9.0 % % [place] % (Auto) 5.6 % % Eos % (Auto) 0.1 % % Baso % (Auto) 0.2 % % Neut # (Auto) 7.15 10^3/uL 10^3/uL (1.8-7.7) Lymph # (Auto) 0.8 10^3/uL 10^3/uL (0.8-4.8) [place] # (Auto) 0.5 10^3/uL 10^3/uL (0.2-0.9) Eos # (Auto) 0.0 10^3/uL 10^3/uL (0.0-0.8) Baso # (Auto) 0.0 10^3/uL 10^3/uL (0.0-0.1) Nucleated RBC % (auto) 0 % % Nucleated RBCs # 0.0 /100WBC /100WBC PT INR APTT Specimen Type Sample Site ABG pH ABG pCO2 ABG pO2 ABG HCO3 ABG Base Excess Lamin Test Hematocrit O2 Delivery Device FiO2 Integrative Medicine Physician ID Sodium 136 mmol/L mmol/L (136-145) Potassium 4.3 mmol/L mmol/L (3.5-5.1) Chloride 88 mmol/L L mmol/L (98-107) Carbon Dioxide 17 mmol/L L mmol/L (22-29) Anion Gap 35.3 H (5-19) BUN 10 mg/dL mg/dL (6-20) Creatinine 0.5 mg/dL mg/dL (0.5-0.9) GFR Calculation 131.1 mL/min H mL/min (90-130) Glucose 113 mg/dL mg/dL (65-115) Calculated Osmolality 282 mOsm/kg L mOsm/kg (285-295) Lactic Acid Lactic Acid (Sepsis) Calcium 8.1 mg/dL L mg/dL (8.5-10.5) Phosphorus Magnesium Total Bilirubin 1.2 mg/dL mg/dL (0.15-1.2) AST 81 U/L H U/L (0-32) ALT 58 U/L H U/L (0-33) Alkaline Phosphatase 121 IU/L H IU/L (35-105) Total Protein 6.7 g/dL g/dL (6.6-8.7) Albumin 3.9 g/dL g/dL (3.5-5.2) Globulin 2.8 g/dL g/dL (1.3-4.6) Lipase 16 U/L U/L (13-60) Vitamin B12 Procalcitonin Urine Color Urine Appearance Urine pH Ur Specific [place] Urine Protein Urine Glucose (UA) Urine Ketones Urine Blood Urine Nitrate Urine Bilirubin Urine Urobilinogen Ur Leukocyte Esterase Urine RBC Urine WBC Ur Squamous Epith Cells Amorphous Sediment Urine Bacteria Ethyl Alcohol SARS-CoV-2 Ag (Rapid) 11/07/21 11/07/21 11/07/21 19:16 20:13 20:13 WBC RBC Hgb Hct MCV MCH MCHC RDW Plt Count MPV Neut % (Auto) Lymph % (Auto) [place] % (Auto) Eos % (Auto) Baso % (Auto) Neut # (Auto) Lymph # (Auto) [place] # (Auto) Eos # (Auto) Baso # (Auto) Nucleated RBC % (auto) Nucleated RBCs # PT 14.30 SECONDS SECONDS (12.1-14.9) INR 1.08 (0.8-1.2) APTT 23.0 SECONDS L SECONDS (23.9-36.7) Specimen Type Sample Site ABG pH ABG pCO2 ABG pO2 ABG HCO3 ABG Base Excess Lamin Test Hematocrit O2 Delivery Device FiO2 Integrative Medicine Physician ID Sodium Potassium Chloride Carbon Dioxide Anion Gap BUN Creatinine GFR Calculation Glucose Calculated Osmolality Lactic Acid 5.7 mmol/L H* mmol/L (0.5-2.2) Lactic Acid (Sepsis) Calcium Phosphorus Magnesium Total Bilirubin AST ALT Alkaline Phosphatase Total Protein Albumin Globulin Lipase Vitamin B12 Procalcitonin Urine Color Dark yellow (Yellow) Urine Appearance Hazy A (CLEAR) Urine pH 5 (5-7) Ur Specific [place] 1.025 (1.005-1.030) Urine Protein 2+ H (Negative) Urine Glucose (UA) Norm (Normal) Urine Ketones 3+ H (Negative) Urine Blood 3+ H (Negative) Urine Nitrate Negative (Negative) Urine Bilirubin 1+ H (Negative) Urine Urobilinogen 4 mg/dL H mg/dL (Negative) Ur Leukocyte Esterase Trace H (Negative) Urine RBC 0-4 /hpf H /hpf (0-2) Urine WBC 5-10 /hpf H /hpf (0-5) Ur Squamous Epith Cells 0-4 /hpf H /hpf (0-5) Amorphous Sediment 4+ /hpf /hpf Urine Bacteria Trace /hpf /hpf (NONE) Ethyl Alcohol SARS-CoV-2 Ag (Rapid) 11/07/21 11/07/21 11/07/21 21:35 21:52 22:10 WBC RBC Hgb Hct MCV MCH MCHC RDW Plt Count MPV Neut % (Auto) Lymph % (Auto) [place] % (Auto) Eos % (Auto) Baso % (Auto) Neut # (Auto) Lymph # (Auto) [place] # (Auto) Eos # (Auto) Baso # (Auto) Nucleated RBC % (auto) Nucleated RBCs # PT INR APTT Specimen Type Arterial Sample Site Radial, right ABG pH 7.52 H (7.35-7.45) ABG pCO2 27.3 mmHg L mmHg (35-45) ABG pO2 89.1 mmHg mmHg (80.0-100.0) ABG HCO3 26.6 mmol/L H mmol/L (22-26) ABG Base Excess 5.6 mmol/L H mmol/L (-2.0-2.0) Lamin Test Pos Hematocrit 37.6 % % (37-47) O2 Delivery Device Room air FiO2 21.0 % % Integrative Medicine Physician ID ellpe Sodium 130 mmol/L L mmol/L (136-145) Potassium 3.9 mmol/L mmol/L (3.5-5.1) Chloride 89 mmol/L L mmol/L (98-107) Carbon Dioxide 23 mmol/L mmol/L (22-29) Anion Gap 21.9 H (5-19) BUN 10 mg/dL mg/dL (6-20) Creatinine 0.7 mg/dL mg/dL (0.5-0.9) GFR Calculation 88.9 mL/min L mL/min (90-130) Glucose 262 mg/dL H mg/dL (65-115) Calculated Osmolality 278 mOsm/kg L mOsm/kg (285-295) Lactic Acid Lactic Acid (Sepsis) Calcium 7.3 mg/dL L mg/dL (8.5-10.5) Phosphorus Magnesium Total Bilirubin AST ALT Alkaline Phosphatase Total Protein Albumin Globulin Lipase Vitamin B12 Procalcitonin Urine Color Urine Appearance Urine pH Ur Specific [place] Urine Protein Urine Glucose (UA) Urine Ketones Urine Blood Urine Nitrate Urine Bilirubin Urine Urobilinogen Ur Leukocyte Esterase Urine RBC Urine WBC Ur Squamous Epith Cells Amorphous Sediment Urine Bacteria Ethyl Alcohol < 10 mg/dL mg/dL (0-10) SARS-CoV-2 Ag (Rapid) Negative (Negative) 11/07/21 11/08/21 11/08/21 22:10 06:18 06:18 WBC 5.6 10^3/uL 10^3/uL (4.0-10.0) RBC 3.59 10^6/uL L 10^6/uL (4.1-5.3) Hgb 11.1 g/dL L g/dL (11.5-15.3) Hct 33.4 % L % (37.0-47.0) MCV 93.0 fl fl (81-99) MCH 30.9 pg pg (28.0-34.0) MCHC 33.2 g/dL g/dL (30.0-36.0) RDW 13.2 % % (12.1-15.1) Plt Count 99 10^3/cmm L D 10^3/cmm (130-400) MPV 10.5 fL H fL (7.4-10.4) Neut % (Auto) 66.8 % % Lymph % (Auto) 22.7 % % [place] % (Auto) 8.2 % % Eos % (Auto) 1.4 % % Baso % (Auto) 0.5 % % Neut # (Auto) 3.76 10^3/uL 10^3/uL (1.8-7.7) Lymph # (Auto) 1.3 10^3/uL 10^3/uL (0.8-4.8) [place] # (Auto) 0.5 10^3/uL 10^3/uL (0.2-0.9) Eos # (Auto) 0.1 10^3/uL 10^3/uL (0.0-0.8) Baso # (Auto) 0.0 10^3/uL 10^3/uL (0.0-0.1) Nucleated RBC % (auto) 0 % % Nucleated RBCs # 0.0 /100WBC /100WBC PT INR APTT Specimen Type Sample Site ABG pH ABG pCO2 ABG pO2 ABG HCO3 ABG Base Excess Lamin Test Hematocrit O2 Delivery Device FiO2 Integrative Medicine Physician ID Sodium 134 mmol/L L mmol/L (136-145) Potassium 3.7 mmol/L mmol/L (3.5-5.1) Chloride 98 mmol/L mmol/L (98-107) Carbon Dioxide 26 mmol/L mmol/L (22-29) Anion Gap 13.7 (5-19) BUN 7 mg/dL mg/dL (6-20) Creatinine 0.5 mg/dL mg/dL (0.5-0.9) GFR Calculation 131.1 mL/min H mL/min (90-130) Glucose 94 mg/dL mg/dL (65-115) Calculated Osmolality 276 mOsm/kg L mOsm/kg (285-295) Lactic Acid Lactic Acid (Sepsis) 6.3 mmol/L H* mmol/L (0.5-2.2) Calcium 6.8 mg/dL L mg/dL (8.5-10.5) Phosphorus Magnesium Total Bilirubin 1.6 mg/dL H mg/dL (0.15-1.2) AST 61 U/L H U/L (0-32) ALT 45 U/L H U/L (0-33) Alkaline Phosphatase 94 IU/L IU/L (35-105) Total Protein 4.9 g/dL L D g/dL (6.6-8.7) Albumin 3.1 g/dL L g/dL (3.5-5.2) Globulin 1.8 g/dL g/dL (1.3-4.6) Lipase Vitamin B12 Procalcitonin Urine Color Urine Appearance Urine pH Ur Specific [place] Urine Protein Urine Glucose (UA) Urine Ketones Urine Blood Urine Nitrate Urine Bilirubin Urine Urobilinogen Ur Leukocyte Esterase Urine RBC Urine WBC Ur Squamous Epith Cells Amorphous Sediment Urine Bacteria Ethyl Alcohol SARS-CoV-2 Ag (Rapid) 11/08/21 11/08/21 11/09/21 06:18 06:18 02:44 WBC 4.3 10^3/uL 10^3/uL (4.0-10.0) RBC 3.98 10^6/uL L 10^6/uL (4.1-5.3) Hgb 12.2 g/dL g/dL (11.5-15.3) Hct 37.6 % % (37.0-47.0) MCV 94.5 fl fl (81-99) MCH 30.7 pg pg (28.0-34.0) MCHC 32.4 g/dL g/dL (30.0-36.0) RDW 13.2 % % (12.1-15.1) Plt Count 79 10^3/cmm L 10^3/cmm (130-400) MPV 10.2 fL fL (7.4-10.4) Neut % (Auto) 64.7 % % Lymph % (Auto) 22.5 % % [place] % (Auto) 7.0 % % Eos % (Auto) 4.9 % % Baso % (Auto) 0.2 % % Neut # (Auto) 2.76 10^3/uL 10^3/uL (1.8-7.7) Lymph # (Auto) 1.0 10^3/uL 10^3/uL (0.8-4.8) [place] # (Auto) 0.3 10^3/uL 10^3/uL (0.2-0.9) Eos # (Auto) 0.2 10^3/uL 10^3/uL (0.0-0.8) Baso # (Auto) 0.0 10^3/uL 10^3/uL (0.0-0.1) Nucleated RBC % (auto) 0 % % Nucleated RBCs # 0.0 /100WBC /100WBC PT INR APTT Specimen Type Sample Site ABG pH ABG pCO2 ABG pO2 ABG HCO3 ABG Base Excess Lamin Test Hematocrit O2 Delivery Device FiO2 Integrative Medicine Physician ID Sodium Potassium Chloride Carbon Dioxide Anion Gap BUN Creatinine GFR Calculation Glucose Calculated Osmolality Lactic Acid 1.0 mmol/L mmol/L (0.5-2.2) Lactic Acid (Sepsis) Calcium Phosphorus Magnesium Total Bilirubin AST ALT Alkaline Phosphatase Total Protein Albumin Globulin Lipase Vitamin B12 Procalcitonin 0.11 ng/mL ng/mL (0-0.5) Urine Color Urine Appearance Urine pH Ur Specific [place] Urine Protein Urine Glucose (UA) Urine Ketones Urine Blood Urine Nitrate Urine Bilirubin Urine Urobilinogen Ur Leukocyte Esterase Urine RBC Urine WBC Ur Squamous Epith Cells Amorphous Sediment Urine Bacteria Ethyl Alcohol SARS-CoV-2 Ag (Rapid) 11/09/21 11/09/21 11/09/21 02:44 02:44 02:44 WBC RBC Hgb Hct MCV MCH MCHC RDW Plt Count MPV Neut % (Auto) Lymph % (Auto) [place] % (Auto) Eos % (Auto) Baso % (Auto) Neut # (Auto) Lymph # (Auto) [place] # (Auto) Eos # (Auto) Baso # (Auto) Nucleated RBC % (auto) Nucleated RBCs # PT INR APTT Specimen Type Sample Site ABG pH ABG pCO2 ABG pO2 ABG HCO3 ABG Base Excess Lamin Test Hematocrit O2 Delivery Device FiO2 Integrative Medicine Physician ID Sodium 138 mmol/L mmol/L (136-145) Potassium 3.1 mmol/L L mmol/L (3.5-5.1) Chloride 100 mmol/L mmol/L (98-107) Carbon Dioxide 26 mmol/L mmol/L (22-29) Anion Gap 15.1 (5-19) BUN 4 mg/dL L mg/dL (6-20) Creatinine 0.7 mg/dL mg/dL (0.5-0.9) GFR Calculation 88.9 mL/min L mL/min (90-130) Glucose 121 mg/dL H mg/dL (65-115) Calculated Osmolality 284 mOsm/kg L mOsm/kg (285-295) Lactic Acid Lactic Acid (Sepsis) Calcium 7.6 mg/dL L mg/dL (8.5-10.5) Phosphorus 1.9 mg/dL L mg/dL (2.5-4.5) Magnesium 1.4 mg/dL L mg/dL (1.7-2.3) Total Bilirubin 0.7 mg/dL mg/dL (0.15-1.2) AST 73 U/L H U/L (0-32) ALT 49 U/L H U/L (0-33) Alkaline Phosphatase 96 IU/L IU/L (35-105) Total Protein 5.6 g/dL L g/dL (6.6-8.7) Albumin 3.1 g/dL L g/dL (3.5-5.2) Globulin 2.5 g/dL g/dL (1.3-4.6) Lipase Vitamin B12 343 pg/mL pg/mL (232-1245) Procalcitonin Urine Color Urine Appearance Urine pH Ur Specific [place] Urine Protein Urine Glucose (UA) Urine Ketones Urine Blood Urine Nitrate Urine Bilirubin Urine Urobilinogen Ur Leukocyte Esterase Urine RBC Urine WBC Ur Squamous Epith Cells Amorphous Sediment Urine Bacteria Ethyl Alcohol SARS-CoV-2 Ag (Rapid) EKG Data^ EKG 1: Attestation: I personally reviewed and interpreted this EKG as follows: EKG interpretation date: 11/07/21 EKG interpretation time: 20:34 Interpretation: sinus tach hr [address] or t wave abnormalities qrs 85 qtc 426 Discharge Plan Discharge Patient Disposition: Admitted As Inpatient Admit Provider: Mundo Nascimento Clinical Impression: Lactic acidosis, Hyponatremia, Alcohol use disorder, severe, dependence, Dehydration Condition: Stable Discharge Diet: Regular Discharge Activity: Increase activity as tolerated Coding Level of Care Code 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
[2021-11-07 16:28] LABS: Basophils % 0.2 %; Eosinophils % 0.1 %; Hematocrit 46.9 % (37.0-47.0); Hemoglobin 15.2 g/dL (11.5-15.3); Lymphocytes # 0.8 10^3/uL (0.8-4.8); Mean Corpuscular HGB Conc 32.4 g/dL (30.0-36.0); Mean Corpuscular Hemoglobin 31.2 pg (28.0-34.0); Mean Corpuscular Volume 96.3 fl (81-99); Monocytes # 0.5 10^3/uL (0.2-0.9); Monocytes % 5.6 %; Neutrophils # 7.15 10^3/uL (1.8-7.7); Neutrophils % 84.7 %; Nucleated Red Blood Cells % 0 %; Platelet Count 158 10^3/cmm (130-400); Red Blood Count 4.87 10^6/uL (4.1-5.3); Red Cell Distribution Width 13.2 % (12.1-15.1); White Blood Count 8.4 10^3/uL (4.0-10.0)
--- NOTE | 2021-11-07 16:33 | CTR_ITS ---
PROCEDURE INFORMATION: Exam: CT Abdomen And Pelvis With Contrast Exam date and time: 11/07/2021 4:33 PM Age: 51 years old Clinical indication: Nausea and vomiting and other: Hematuria; Abdominal pain; Prior surgery; Surgery type: Gb; Additional info: Abd pain TECHNIQUE: Imaging protocol: Computed tomography of the abdomen and pelvis with contrast. Axial, coronal and sagittal reformatted images were created and reviewed. Radiation optimization: All CT scans at this facility use at least one of these dose optimization techniques: automated exposure control; mA and/or kV adjustment per patient size (includes targeted exams where dose is matched to clinical indication); or iterative reconstruction. Contrast material: OMNI 300; Contrast volume: 95 ml; Contrast route: INTRAVENOUS (IV); COMPARISON: No relevant prior studies available. RADIATION DOSE METRICS: Total DLP (mGy-cm): 1733.63 FINDINGS: Liver: Mild hepatomegaly. Diffuse hepatic steatosis. Gallbladder and bile ducts: Status post cholecystectomy. No biliary ductal dilatation. Pancreas: Unremarkable. Spleen: Unremarkable. Adrenal glands: Normal. No mass. Kidneys and ureters: No mass. No radiodense calculi. No hydronephrosis. Stomach and bowel: Status post gastric bypass surgery. No obstruction. No bowel wall thickening. No pneumatosis. Appendix: Normal. Intraperitoneal space: No free fluid. No organized fluid collection. No free air. Vasculature: Unremarkable. No aneurysm. Lymph nodes: No pathologically enlarged lymph nodes. Urinary bladder: Unremarkable as visualized. Reproductive: Somewhat lobular uterus, possibly due to fibroids. Bones/joints: No acute osseous abnormality. Osteopenia. Degenerative changes. Soft tissues: Evidence of prior ventral herniorrhaphy. CT/CT abdomen pelvis w con* [id number]: 1[address] No CT evidence of acute intra-abdominal or pelvic pathology. 2. Additional findings, as above.
[2021-11-07 16:54] LABS: Alanine Aminotransferase 58 U/L (0-33); Albumin Level 3.9 g/dL (3.5-5.2); Alkaline Phosphatase 121 IU/L (35-105); Aspartate Amino Transferase 81 U/L (0-32); Blood Urea Nitrogen 10 mg/dL (6-20); Calcium 8.1 mg/dL (8.5-10.5); Carbon Dioxide 17 mmol/L (22-29); Chloride 88 mmol/L (98-107); Globulin 2.8 g/dL (1.3-4.6); Glomerular Filtration Rate 131.1 mL/min (90-130); Glucose 113 mg/dL (65-115); Osmolality Calculated 282 mOsm/kg (285-295); Sodium 136 mmol/L (136-145); Total Bilirubin 1.2 mg/dL (0.15-1.2); Total Protein 6.7 g/dL (6.6-8.7)
[2021-11-07 16:56] LABS: Anion Gap 35.3 (5-19); Potassium 4.3 mmol/L (3.5-5.1)
[2021-11-07 19:52] LABS: Lipase 16 U/L (13-60)
[2021-11-07] MEDS: iohexol 300 mg/mL 100 mL Btl IV (19:59)
[2021-11-07] MEDS: morphine 4 mg/mL SDV 1 mL IVP (20:16)
[2021-11-07] MEDS: promethazine 25 mg/mL SDV 1 mL IM (20:16)
[2021-11-07] MEDS: dextrose 5%-sod chloride 0.9% 1,000 ML 1000 ML IV ×3 (20:17→21:27)
[2021-11-07] MEDS: pantoprazole 40 mg SDV IVP (20:28)
[2021-11-07 20:37] LABS: INR 1.08 (0.8-1.2)
[2021-11-07 20:51] LABS: Lactic Sepsis W/Reflex 5.7 mmol/L (0.5-2.2)
[2021-11-07 21:47] LABS: ABG PH Result 7.52 (7.35-7.45); Blood Gas Allen Test Pos; Blood Gas Sample Type Arterial; Oxygen Device ROOM AIR
[2021-11-07 22:02] LABS: ABG PCO2 27.3 mmHg (35-45); Arterial Blood Gas Hematocrit 37.6 % (37-47); Base Excess ABG 5.6 mmol/L (-2.0-2.0); Blood Gas Sample Site Radial, right; HCO3 ABG 26.6 mmol/L (22-26); PO2 ABG 89.1 mmHg (80.0-100.0)
[2021-11-07 22:05] LABS: Reflex Lactate Order REFLEX LACTIC ORDERD
[2021-11-07] MEDS: piperacillin-tazobactam 3.375 GM in sodium chloride 0.9% (plus) 50 ML IV (22:22)
[2021-11-07] MEDS: sodium chloride 0.9% 1,000 ML 999 ML IV (22:22)
[2021-11-07 22:37] LABS: SARS Covid-2 Antigen Negative (Negative)
[2021-11-07 22:42] LABS: Alcohol Level < 10 mg/dL (0-10); Anion Gap 21.9 (5-19); Blood Urea Nitrogen 10 mg/dL (6-20); Calcium 7.3 mg/dL (8.5-10.5); Carbon Dioxide 23 mmol/L (22-29); Chloride 89 mmol/L (98-107); Glomerular Filtration Rate 88.9 mL/min (90-130); Glucose 262 mg/dL (65-115); Osmolality Calculated 278 mOsm/kg (285-295); Potassium 3.9 mmol/L (3.5-5.1); Sodium 130 mmol/L (136-145)
[2021-11-07 22:43] LABS: Lactic Acid level (Lactate) 6.3 mmol/L (0.5-2.2)
[2021-11-07] MEDS: vancomycin 1,000 MG in sodium chloride 0.9% 250 ML 250 MG IV (23:17)
[2021-11-07] MEDS: LORazepam 2 mg/mL INJ 1 mL 1 MG IVP (23:17)
--- NOTE | 2021-11-07 23:21 | P.HP_ITS ---
Providers/Chief Complaint Chief Complaint: N/V/D History of Present Illness Yeimy Perry is a 51 year old female with past medical history of chronic alcohol abuse, came in with chief complaint generalized abdominal pain nausea nonbloody vomiting and diarrhea for the last 2 days she has been binge drinking for the last 1 week. She is also complaining of burning while passing urine. Denies any fever, chest pain shortness of breath, cough,No hematemesis. No kosta or BRPR. Upon arrival in the ER she was worked up for above-mentioned complaints: Pertinent imaging studies: CT abdomen pelvis w con: Acute intra-abdominal or pelvic findingS X-ray chest: No acute pathology EKG : Sinus tachycardia with first-degree AV block Pertinent labs: WBC 8.4 H&H 15.2 / 46.9 , PLT : 158 , serum sodium 130 serum potassium 3.9, BUN/ serum creatinine: 10/0.7 , lactic acid:5.7 repeat lactic acid 6.3, AST 81 ALT 58, ALP 121, total bilirubin 1.2 In ER she received IV hydration, she was given 1 dose of Vanco and Zosyn, as well as 1 dose of morphine IV Review of Systems Const: Denies: fever(s), chills, body aches, change in appetite or diaphoresis Card: Denies: palpitations, edema, swelling of feet/ankles, dyspnea on exertion, orthopnea or leg pain with exertion Resp: Denies: dyspnea, productive cough, wheezing or pain on inspiration GI: Denies: constipation : Denies: flank pain Musc: Denies: back pain, extremity pain or extremity swelling Neuro: Denies: headache(s), difficulty walking or confusion Medications/Allergies Home Medications Medication Instructions Recorded Confirmed Last Taken Type multivitamin with folic acid 400 1 tab PO DAILY 30 Days #30 tab 06/09/21 10/04/21 Unknown Rx mcg tablet ferrous sulfate 325 mg (65 mg 325 mg PO DAILY #90 tab 07/15/21 10/04/21 Unknown Rx iron) tablet hydroxyzine pamoate 50 mg capsule 50 mg PO BEDTIME PRN #30 cap 08/25/21 10/04/21 Unknown Rx trazodone 100 mg tablet 100 mg PO DAILY #30 tab 08/25/21 10/04/21 Unknown Rx thiamine mononitrate (vit B1) 100 mg PO DAILY 30 Days #30 tab 09/24/21 10/04/21 Unknown Rx [Vitamin B-1 (mononitrate)] fluoxetine 40 mg capsule 40 mg PO QAM #30 cap 10/04/21 10/04/21 Unknown Rx gabapentin 300 mg capsule 300 mg PO TID #90 cap 10/11/21 Unknown Rx meloxicam 7.5 mg tablet 7.5 mg PO BIDWMEAL #60 tab 10/11/21 Unknown Rx meloxicam 15 mg PO DAILY #30 tab 10/21/21 Unknown Rx methylprednisolone [Medrol (Den)] See Rx Instructions PO .COMPLEX 10/21/21 Unknown Rx #21 ea Allergies Allergy/AdvReac Type Severity Reaction Status Date / Time No Known Allergies Allergy Verified 11/07/21 15:10 PFSH Acute PFSH: Medical History Alcohol dependence Has been prescribed antabuse Alcohol use disorder, severe, dependence Anxiety Bipolar disorder Chronic post-traumatic stress disorder (PTSD) Depressive disorder History of Wernicke's encephalopathy Hx of cholecystitis Iron deficiency anemia Left knee pain Obesity (BMI 35.0-39.9 without comorbidity) Osteoarthritis involving multiple joints on both sides of body Psychiatric care Recurrent pancreatitis Suicidal thoughts in the past Surgical History History of Hx of gastric bypass Hx of hernia repair Hx of tubal ligation Hx of unilateral salpingectomy Right Family History Other Diabetes Heart disease Social History Alcohol intake: current History of recent travel: No Current gender identity: Female Female Reproductive History: Date of last menstrual period: 05/25/21 Vitals/I&O/Wt Last Vital Signs Temp 99.0 F 11/07/21 15:18 Pulse 112 H 11/07/21 15:18 Resp 24 H 11/07/21 20:16 Pulse Ox 100 11/07/21 15:18 11/07/21 11/07/21 11/08/21 14:59 22:59 06:59 Intake Total 1166.667 / 1166.667 Balance 1166.667 / 1166.667 Weight last 48 hrs Weight 117.934 kg Physical Exam Const: COMMON NORMALS: patient oriented x3 HENMT: COMMON NORMALS: normocephalic and atraumatic HEAD & SCALP: normocephalic and atraumatic Chest: CHEST: Yes Symmetrical chest wall rise Resp: COMMON NORMALS: clear to auscultation bilaterally EFFORT & INSPECTION: Yes symmetric chest movement AUSCULTATION: clear to auscultation bilaterally Cardio: COMMON NORMALS: regular rate, regular rhythm, S1 normal heart sound present, S2 normal heart sound present, No gallops present (Cardio), No murmurs present (Cardio), No rub (Cardio) and Peripheral pulses 2+ throughout RATE: regular rate RHYTHM: regular rhythm HEART SOUNDS: S1 normal heart sound present and S2 normal heart sound present PERIPHERAL PULSES: Peripheral pulses 2+ throughout GI: COMMON NORMALS: Normal to inspection, nondistended, normoactive bowel sounds present, Soft to palpation, non-tender, No hepatosplenomegaly present and no masses AUSCULTATION: Yes normoactive bowel sounds PALPATION: Yes Soft to palpation and Yes No hepatosplenomegaly present RECTAL EXAM: deferred Extremity: COMMON NORMALS: no clubbing, cyanosis or edema and no pedal edema Neuro: COMMON NORMALS: patient oriented x3 Data : 11/07/21 16:20 11/07/21 22:10 A&P Assessment and plan (1) Alcohol use disorder, severe, dependence: Status: Chronic (2) Hyponatremia: Status: Acute (3) Dehydration: Status: Acute (4) Lactic acidosis: Status: Acute (5) Bipolar disorder: Status: Acute Qualifiers: Active/Remission status: remission status unspecified Qualified Code(s): F31.9 - Bipolar disorder, unspecified (6) Transaminitis: Status: Acute Additional A&P Information 51 year old female with past medical history of chronic alcohol abuse, came in with chief complaint generalized abdominal pain nausea nonbloody vomiting and diarrhea for the last 2 days she has been binge drinking for the last 1 week. She is also complaining of burning while passing urine. #Hypovolemic hyponatremia: Secondary to dehydration secondary to nausea vomiting,: Continue IV hydration with normal saline Monitor BMP #Elevated lactic acid: Likely secondary to dehydration, low clinical suspicion for infection. Follow repeat lactic acid, procalcitonin, blood culture urine culture urinalysis We will hold off on antibiotics for now. #Alcohol abuse disorder: Monitor for withdrawal. On CIWA protocol. #Transaminitis: Likely secondary to dehydration. Monitor CMP #Alcoholic gastritis: Patient presented with nausea vomiting, likely secondary to binge alcohol drinking. As needed Zofran, Protonix. #UTI : Follow Urine Culture: On Levofloxacin #DVT prophylaxis: On Lovenox #CODE STATUS: Full code. Attestations Medical Necessity Statement*: Patient needs to be in hospital for management of hyponatremia, dehydration , lactic acidosis , Monitoring for alcohol withdrawal. 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
[2021-11-07 23:46] LABS: Add Urine Microscopic? YES; Bilirubin Urine 1+ (Negative); Blood Urine 3+ (Negative); Glucose Urine UA Norm (Normal); Ketones Urine 3+ (Negative); Leukocyte Esterase Urine Trace (Negative); Nitrate Urine Negative (Negative); Protein Urine 2+ (Negative); Specific Gravity, Urine 1.025 (1.005-1.030); Urine Appearance Hazy (CLEAR); Urine Color Dark Yellow (Yellow); Urobilinogen Urine 4 mg/dL (Negative); pH Urine 5 (5-7)
[2021-11-07 23:47] LABS: Add Urine Culture? No; Amorphous Sediment Urine 4+ /hpf; Bacteria Urine TRACE /hpf; RBC Urine 0-4 /hpf (0-2); Squamous Epithelial Cell Urine 0-4 /hpf (0-5)
[2021-11-08] VITALS (8 sets, daily range): BP systolic 134–159; BP diastolic 72–94; PULSE 98–113; RESP 16–22; TEMP 36.7–37.7; O2SAT 94–100; BMI 41.6
[2021-11-08] MEDS: enoxaparin 40 mg/0.4 mL Syringe SUBCUT (00:50)
[2021-11-08] MEDS: HYDROmorphone 1 mg/mL INJ 1 mL IVP (00:52)
[2021-11-08] MEDS: sodium chloride 0.9% 1,000 ML 125 ML IV ×2 (00:55→06:38)
[2021-11-08] MEDS: sodium chloride 0.9% 1,000 ML 999 ML IV ×2 (01:40→02:45)
[2021-11-08] MEDS: fluoxetine 20 mg Capsule 40 MG PO (06:22)
[2021-11-08 06:52] LABS: Basophils % 0.5 %; Eosinophils # 0.1 10^3/uL (0.0-0.8); Eosinophils % 1.4 %; Hematocrit 33.4 % (37.0-47.0); Hemoglobin 11.1 g/dL (11.5-15.3); Lymphocytes # 1.3 10^3/uL (0.8-4.8); Lymphocytes % 22.7 %; Mean Corpuscular HGB Conc 33.2 g/dL (30.0-36.0); Mean Corpuscular Hemoglobin 30.9 pg (28.0-34.0); Mean Platelet Volume 10.5 fL (7.4-10.4); Monocytes # 0.5 10^3/uL (0.2-0.9); Monocytes % 8.2 %; Neutrophils # 3.76 10^3/uL (1.8-7.7); Neutrophils % 66.8 %; Nucleated Red Blood Cells % 0 %; Platelet Count 99 10^3/cmm (130-400); Red Blood Count 3.59 10^6/uL (4.1-5.3); Red Cell Distribution Width 13.2 % (12.1-15.1); White Blood Count 5.6 10^3/uL (4.0-10.0)
[2021-11-08 06:54] LABS: Alanine Aminotransferase 45 U/L (0-33); Albumin Level 3.1 g/dL (3.5-5.2); Alkaline Phosphatase 94 IU/L (35-105); Blood Urea Nitrogen 7 mg/dL (6-20); Calcium 6.8 mg/dL (8.5-10.5); Carbon Dioxide 26 mmol/L (22-29); Chloride 98 mmol/L (98-107); Globulin 1.8 g/dL (1.3-4.6); Glomerular Filtration Rate 131.1 mL/min (90-130); Glucose 94 mg/dL (65-115); Osmolality Calculated 276 mOsm/kg (285-295); Sodium 134 mmol/L (136-145); Total Bilirubin 1.6 mg/dL (0.15-1.2); Total Protein 4.9 g/dL (6.6-8.7)
[2021-11-08 06:58] LABS: Anion Gap 13.7 (5-19); Aspartate Amino Transferase 61 U/L (0-32); Potassium 3.7 mmol/L (3.5-5.1); Procalcitonin 0.11 ng/mL (0-0.5)
[2021-11-08] MEDS: levoFLOXacin 750 mg Tablet PO (09:22)
[2021-11-08] MEDS: trazodone 100 mg Tablet PO (09:22)
[2021-11-08] MEDS: pantoprazole DR 40 mg Tablet PO (09:22)
[2021-11-08] MEDS: thiamine 100 mg Tablet PO ×2 (09:22)
[2021-11-08] MEDS: gabapentin 300 mg Capsule PO ×2 (09:22→15:33)
[2021-11-08] MEDS: multivitamin therapeutic Tablet 1 TAB PO (09:22)
[2021-11-08] MEDS: folic acid 1 mg Tablet PO (09:22)
--- NOTE | 2021-11-08 09:24 | P.PN_ITS ---
Subjective Subjective: Interval history: Patient is drowsy however verbally directable, no active severe withdrawal symptoms Added phenobarbital, discontinue lorazepam Vitals/I&O/Wt Last Vital Signs Temp 98.3 F 11/08/21 03:07 Pulse 111 H 11/08/21 03:36 Resp 18 11/08/21 03:07 BP 159/89 11/08/21 03:36 Pulse Ox 100 11/08/21 03:36 11/07/21 11/08/21 11/08/21 22:59 06:59 14:59 Intake Total 1166.667 / 0401.126 7552.583 / 6181.250 Balance 1166.667 / 9124.521 3349.583 / 6181.250 Weight last 48 hrs Weight 124.239 kg Weight 117.934 kg Physical Exam Narrative: EXAM NARRATIVE: Patient is saturating well on room air Drowsy No new focal deficit Able to move all of her extremities Oriented to time place and person Mild tremors of extremities noted Abdomen soft Saturating well on room air without use of respiratory secured entrance monitor muscles EOMI, PERRLA S1, S2 sinus tachycardia Clinically does not look dehydrated Data : 11/08/21 06:18 11/08/21 06:18 Micro: Microbiology 11/08/21 06:18 Blood Culture - Preliminary Blood SPECIMEN COLLECTED 11/07/21 22:21 Blood Culture - Preliminary Blood SPECIMEN COLLECTED A&P Assessment and plan (1) Dehydration: Status: Acute (2) Lactic acidosis: Status: Acute (3) Hyponatremia: Status: Acute (4) Alcohol use disorder, severe, dependence: Status: Chronic (5) Bipolar disorder: Status: Acute Qualifiers: Active/Remission status: remission status unspecified Qualified Code(s): F31.9 - Bipolar disorder, unspecified (6) Iron deficiency anemia: Status: Acute Qualifiers: Iron deficiency anemia type: other iron deficiency Qualified Code(s): D50.8 - Other iron deficiency anemias (7) Chronic post-traumatic stress disorder (PTSD): Status: Chronic (8) Alcoholic fatty liver: Status: Acute Additional A&P Information Severe alcohol dependence, she has been binge drinking for last 1 week Patient is stating that she had severe withdrawal symptoms and she was admitted to the ICU last time however she was not intubated Discontinue lorazepam, would use phenobarbital 100 mg every 2 to 3 hours Lactic acidemia has improved IV fluids to be continued for now Alcoholic hepatosis would explain abnormal transaminases Hyponatremia related to binge drinking sodium 134, continue IV fluids at low rate UTI: Continue levofloxacin Full code Regular diet DVT prophylaxis SCDs, avoid Lovenox because of thrombocytopenia likely alcohol related Albumin 3.1 Attestations Medical Necessity Statement*: Needs close monitoring for alcohol withdrawal symptoms in the hospital Time Spent in Patient Care: less than 15 minutes Coding Level of Care Code 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
[2021-11-08] MEDS: sodium chloride 0.9% 1,000 ML 75 ML IV (15:32)
[2021-11-08] MEDS: acetaminophen 325 mg Tablet 650 MG PO (15:35)
[2021-11-08] MEDS: ondansetron 2 mg/ML SDV 2 mL 4 MG IVP (15:35)
[2021-11-09] VITALS (10 sets, daily range): BP systolic 148–156; BP diastolic 91–100; PULSE 72–93; RESP 16–18; TEMP 36.7–37.1; O2SAT 94–96
[2021-11-09] MEDS: PHENobarbital 32.4 mg Tablet 97.2 MG PO (02:07)
[2021-11-09 03:08] LABS: Basophils % 0.2 %; Eosinophils # 0.2 10^3/uL (0.0-0.8); Eosinophils % 4.9 %; Hematocrit 37.6 % (37.0-47.0); Hemoglobin 12.2 g/dL (11.5-15.3); Lymphocytes % 22.5 %; Mean Corpuscular HGB Conc 32.4 g/dL (30.0-36.0); Mean Corpuscular Hemoglobin 30.7 pg (28.0-34.0); Mean Corpuscular Volume 94.5 fl (81-99); Mean Platelet Volume 10.2 fL (7.4-10.4); Monocytes # 0.3 10^3/uL (0.2-0.9); Neutrophils # 2.76 10^3/uL (1.8-7.7); Neutrophils % 64.7 %; Nucleated Red Blood Cells % 0 %; Platelet Count 79 10^3/cmm (130-400); Red Blood Count 3.98 10^6/uL (4.1-5.3); Red Cell Distribution Width 13.2 % (12.1-15.1); White Blood Count 4.3 10^3/uL (4.0-10.0)
[2021-11-09 03:27] LABS: Alanine Aminotransferase 49 U/L (0-33); Albumin Level 3.1 g/dL (3.5-5.2); Alkaline Phosphatase 96 IU/L (35-105); Anion Gap 15.1 (5-19); Aspartate Amino Transferase 73 U/L (0-32); Blood Urea Nitrogen 4 mg/dL (6-20); Calcium 7.6 mg/dL (8.5-10.5); Carbon Dioxide 26 mmol/L (22-29); Chloride 100 mmol/L (98-107); Globulin 2.5 g/dL (1.3-4.6); Glomerular Filtration Rate 88.9 mL/min (90-130); Glucose 121 mg/dL (65-115); Osmolality Calculated 284 mOsm/kg (285-295); Potassium 3.1 mmol/L (3.5-5.1); Sodium 138 mmol/L (136-145); Total Bilirubin 0.7 mg/dL (0.15-1.2); Total Protein 5.6 g/dL (6.6-8.7)
[2021-11-09 03:29] LABS: Magnesium 1.4 mg/dL (1.7-2.3); Phosphorus 1.9 mg/dL (2.5-4.5)
[2021-11-09] MEDS: sodium chloride 0.9% 1,000 ML 75 ML IV (04:40)
[2021-11-09] MEDS: fluoxetine 20 mg Capsule 40 MG PO (05:00)
[2021-11-09] MEDS: ondansetron 2 mg/ML SDV 2 mL 4 MG IVP (06:34)
[2021-11-09] MEDS: acetaminophen 325 mg Tablet 650 MG PO (06:35)
[2021-11-09] MEDS: gabapentin 300 mg Capsule PO ×3 (08:32→21:14)
[2021-11-09] MEDS: multivitamin therapeutic Tablet 1 TAB PO (08:32)
[2021-11-09] MEDS: levoFLOXacin 750 mg Tablet PO (08:32)
[2021-11-09] MEDS: folic acid 1 mg Tablet PO (08:32)
[2021-11-09] MEDS: thiamine 100 mg Tablet PO (08:32)
[2021-11-09] MEDS: pantoprazole DR 40 mg Tablet PO (08:32)
--- NOTE | 2021-11-09 09:09 | PM.PN ---
Subjective Subjective: Interval history: Got only 1 dose of phenobarbital last night this morning she is calm and cooperative She still feeling nauseous, she thinks she is not ready to go home Stating that she almost fell when she tried to go to go to the bathroom She has been knee osteoarthritis tactile visual hallucination positive Vitals/I&O/Wt Last Vital Signs Temp 98.8 F 11/09/21 07:24 Pulse 83 11/09/21 07:24 Resp 18 11/09/21 07:24 BP 151/91 11/09/21 07:24 Pulse Ox 95 11/09/21 07:24 11/08/21 11/09/21 11/09/21 22:59 06:59 14:59 Intake Total 2365 / 3485 Output Total 1800 / 2800 Balance 565 / 685 Weight last 48 hrs Weight 124.239 kg Weight 117.934 kg Physical Exam Narrative: EXAM NARRATIVE: Nonfocal neuro exam Good sensation of bilateral lower extremities No sign of stroke Looks euvolemic Morbidly obese S1, S2 No audible stridor or wheezing Distended abdomen, nontender No active signs of withdrawal No coarse tremors Endorsing headache tactile and visual hallucinations Data : 11/09/21 02:44 11/09/21 02:44 Micro: Microbiology 11/08/21 06:18 Blood Culture - Preliminary Blood NEGATIVE TO DATE 11/07/21 22:21 Blood Culture - Preliminary Blood NEGATIVE TO DATE A&P Assessment and plan (1) Alcoholic fatty liver: Status: Acute (2) Dehydration: Status: Acute (3) Lactic acidosis: Status: Acute (4) Hyponatremia: Status: Acute (5) Osteoarthritis involving multiple joints on both sides of body: Status: Acute (6) Left knee pain: Status: Acute (7) Alcohol use disorder, severe, dependence: Status: Chronic (8) Iron deficiency anemia: Status: Acute Qualifiers: Iron deficiency anemia type: other iron deficiency Qualified Code(s): D50.8 - Other iron deficiency anemias Additional A&P Information Alcoholic liver disease Alcohol withdrawal Only required 1 dose of phenobarbital last night, patient still nauseous endorsing tactile and visual sedation, will like to monitor her 1 more day She experiencing left knee pain however no active signs of septic joint Patient is stating that she hurt her knee while lifting 50 pounds box at work Continue thiamine and folic acid DVT prophylaxis Lovenox Regular diet Plan to discharge her tomorrow We will do x-ray of her left knee Attestations Medical Necessity Statement*: Plan to discharge her tomorrow Time Spent in Patient Care: less than 15 minutes 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
--- NOTE | 2021-11-09 09:13 | XR_ITS ---
WS: [id number] Exam: XR knee LT 1-2V [id number] Date/Time of Exam: 11/09/2021 9:13 AM Reason For Exam: Left knee pain Comparison 10/11/2021. No fracture or dislocation. Joint compartments are relatively well maintained. There is spurring christiana g the superior anterior margin of the patella. No joint effusion. XR/XR knee LT 1-2V [id number] IMPRESSION: 1. No fracture or joint effusion. Minimal degenerative change.
[2021-11-09 09:56] LABS: Vitamin B12 343 pg/mL (232-1245)
--- NOTE | 2021-11-09 10:19 | PC.CHAP ---
Pastoral Care Encounter/Spiritual Assessment Type of Contact [] Declined alteration specialist visit [] Patient/Family/Request visit [] Outpatient visit [] Follow-up visit [] Physician referral [] Code/Alert [x] Routine visit [] Staff referral [] Actively dying [x] Patient sleeping [] Family support [] [] Out of room [] Palliative care [] [] Receiving care in room [] Pre-surgical visit [] Trauma [] Long length of stay [] ICU visit [] Other: Relational/Emotional Strength [] Patient feels connected with others/family/visitors/staff [] Distress [] Loneliness/isolation [] Abandonment Spirituality of Patient [] Person of [place]a [] Attends Orthodox of their [place]a [] Believes in Prayer [] Reads Bible or Bahai materials [] There are Spiritual issues to be addressed Webfocus Developer 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 [] Prayer [] Active listening [] Non-anxious presence [] Spiritual/emotional support [] Crisis/trauma care [] Spiritual counseling [] Bereavement support [] Provided bereavement packet [] Provided Bible/devotional materials [] Provided toy/stuffed animal, coloring book to patient or family member [] Provided Communion [] Anointing/[place] [] Salvation [] Completed spiritual assessment [] Other: Impact on Illness or Injury [] Angry [] Fearful [] Anxious [] Often cries [] Exhaustion [] Unable to work [] Unable to attend mosque [] Unable to walk/stand [] Unable to read [] Unable to drive [] Unable to eat/drink [] Unable to sleep [] Unable to be with family [] Patient intubated [] Other: Summary Time spent with patient
[2021-11-09] MEDS: trazodone 100 mg Tablet PO (21:15)
[2021-11-09] MEDS: labetalol 200 mg Tablet 100 MG PO (21:15)
[2021-11-09] MEDS: hyDROXYzine 25 mg Capsule 50 MG PO (21:26)
[2021-11-10] VITALS: BP 132/88; PULSE 68; RESP 18; TEMP 36.8; O2SAT 95
[2021-11-10 04:00] VITALS: BP 128/80; PULSE 64; RESP 18; TEMP 36.7; O2SAT 94
[2021-11-10 05:57] LABS: Alanine Aminotransferase 47 U/L (0-33); Alkaline Phosphatase 79 IU/L (35-105); Anion Gap 15.1 (5-19); Aspartate Amino Transferase 63 U/L (0-32); Basophils % 0.5 %; Blood Urea Nitrogen 5 mg/dL (6-20); Calcium 7.4 mg/dL (8.5-10.5); Carbon Dioxide 28 mmol/L (22-29); Chloride 100 mmol/L (98-107); Eosinophils # 0.2 10^3/uL (0.0-0.8); Eosinophils % 5.1 %; Globulin 1.9 g/dL (1.3-4.6); Glomerular Filtration Rate 106.3 mL/min (90-130); Glucose 98 mg/dL (65-115); Hematocrit 40.3 % (37.0-47.0); Hemoglobin 12.3 g/dL (11.5-15.3); Lymphocytes # 1.5 10^3/uL (0.8-4.8); Lymphocytes % 34.5 %; Mean Corpuscular HGB Conc 30.5 g/dL (30.0-36.0); Mean Corpuscular Hemoglobin 31.5 pg (28.0-34.0); Mean Corpuscular Volume 103.3 fl (81-99); Mean Platelet Volume 10.8 fL (7.4-10.4); Monocytes # 0.3 10^3/uL (0.2-0.9); Neutrophils # 2.23 10^3/uL (1.8-7.7); Nucleated Red Blood Cells % 0 %; Osmolality Calculated 287 mOsm/kg (285-295); Platelet Count 57 10^3/cmm (130-400); Potassium 3.1 mmol/L (3.5-5.1); Red Cell Distribution Width 13.3 % (12.1-15.1); Sodium 140 mmol/L (136-145); Total Bilirubin 0.4 mg/dL (0.15-1.2); Total Protein 4.9 g/dL (6.6-8.7); White Blood Count 4.3 10^3/uL (4.0-10.0)
[2021-11-10] MEDS: fluoxetine 20 mg Capsule 40 MG PO (06:43)
[2021-11-10 08:00] VITALS: BP 153/95; PULSE 84; RESP 16; TEMP 36.7; O2SAT 99
--- NOTE | 2021-11-10 09:15 | PM.DCS ---
Discharge Providers Date of Admission: 11/09/21 09:45 Date of Discharge: November 10, 2021 Attending Provider at Admission: Mundo Nascimento MD Attending Provider at Discharge: Yasemin Blanton MD Diagnoses at Discharge Discharge Diagnosis (1) Alcoholic fatty liver: Status: Acute (2) Dehydration: Status: Acute (3) Lactic acidosis: Status: Acute (4) Hyponatremia: Status: Acute (5) Osteoarthritis involving multiple joints on both sides of body: Status: Acute (6) Left knee pain: Status: Acute (7) Alcohol use disorder, severe, dependence: Status: Chronic (8) Iron deficiency anemia: Status: Acute Qualifiers: Iron deficiency anemia type: other iron deficiency Qualified Code(s): D50.8 - Other iron deficiency anemias Reason for Visit Reason for Visit: N/V/D Hospital Course Hospital Course Yeimy Perry is a 51 year old female with past medical history of chronic alcohol abuse, came in with chief complaint generalized abdominal pain nausea nonbloody vomiting and diarrhea for the last 2 days she has been binge drinking for the last 1 week. He was admitted for management and evaluation of alcohol withdrawal symptoms. CT abdomen pelvis was unremarkable, knee x-ray was done because of her constant complaint of left knee pain, no sign of cellulitis or septic joint, knee x-ray consistent with osteoarthritis. She was kept on phenobarbital monotherapy regimen. She only required 1 dose of phenobarbital 100 mg. She never showed severe withdrawal symptoms. Diarrhea and vomiting resolved. She was able to tolerate her diet. At the time of discharge heart rate is 64, blood pressure 128/80 mmHg, she is saturating well on room air, for her UTI related symptoms she will be given Bactrim 5-day regimen. Thrombocytopenia most likely related to alcohol abuse. Electrolytes such as magnesium phosphorus potassium were repleted during hospitalization. Alcohol related apoptosis, transaminases in 40s, hepatitis panel negative. Patient is stating that she would like to follow-up with her voodoo and does not want to go for the AA program for now. I will give her [facility] referral as well at the time of discharge. She is stating that she is done with alcohol Physical Exam Narrative: EXAM NARRATIVE: Nonfocal neuro exam Good sensation of bilateral lower extremities No sign of stroke Looks euvolemic Morbidly obese S1, S2 No audible stridor or wheezing Distended abdomen, nontender No active signs of withdrawal No coarse tremors Discharge Data Data Completed and Pending: Completed Studies During Hospitalization Category Date Time Status CT abdomen pelvis w con* [id number] Stat Cat Scan 11/07/21 16:33 Completed XR chest 1V miladys ble [id number] Stat Exams 11/07/21 14:36 Completed XR knee LT 1-2V 7 [id number] Routine Exams 11/09/21 09:13 Completed Pending at discharge Category Date Time Status Blood Culture Rou obi Lab 11/08/21 06:18 Results Labs from last 24 hours 11/10/21 11/10/21 11/09/21 05:20 05:20 02:44 WBC 4.3 RBC 3.90 L Hgb 12.3 Hct 40.3 MCV 103.3 H D MCH 31.5 MCHC 30.5 D RDW 13.3 Plt Count 57 L MPV 10.8 H Neut % (Auto) 52.0 Lymph % (Auto) 34.5 [place] % (Auto) 7.0 Eos % (Auto) 5.1 Baso % (Auto) 0.5 Neut # (Auto) 2.23 Lymph # (Auto) 1.5 [place] # (Auto) 0.3 Eos # (Auto) 0.2 Baso # (Auto) 0.0 Nucleated RBC % (a uto) 0 Nucleated RBCs # 0.0 Sodium 140 Potassium 3.1 L Chloride 100 Carbon Dioxide 28 Anion Gap 15.1 BUN 5 L Creatinine 0.6 GFR Calculation 106.3 Glucose 98 Calculated Osmolal ity 287 Calcium 7.4 L Total Bilirubin 0.4 AST 63 H ALT 47 H Alkaline Phosphata se 79 Total Protein 4.9 L Albumin 3.0 L Globulin 1.9 Vitamin B12 343 Vitals: Last Vital Signs Temp 98.0 F 11/10/21 04:00 Pulse 64 11/10/21 04:00 Resp 18 11/10/21 04:00 BP 128/80 11/10/21 04:00 Pulse Ox 94 11/10/21 04:00 Discharge Plan Discharge Patient Disposition: Home Condition: Stable Prescriptions: New folic acid 1 mg Tablet 1 mg PO DAILY Qty: 90 RF: 0 thiamine mononitrate (vit B1) [Vitamin B-1 (mononitrate)] 100 mg Tablet 100 mg PO DAILY Qty: 90 RF: 0 sulfamethoxazole-trimethoprim [Bactrim DS] 800-160 mg tablet 1 tab PO BID 3 Days Qty: 6 RF: 0 magnesium 200 mg tablet 200 mg PO DAILY Qty: 10 RF: 0 Phosphorous 250 mg tablet 1 tab PO DAILY Qty: 5 RF: 0 potassium chloride 10 mEq capsule, extended release 10 meq PO DAILY Qty: 5 RF: 0 Continued hydroxyzine pamoate 50 mg capsule 50 mg PO BEDTIME PRN (Reason: anxiety/insomnia) Qty: 30 RF: 5 fluoxetine 40 mg capsule 40 mg PO QAM Qty: 30 RF: 1 Thera 400 mcg tablet 1 tab PO DAILY 30 Days Qty: 30 RF: 12 ferrous sulfate 325 mg (65 mg iron) tablet 325 mg PO DAILY Qty: 90 RF: 3 gabapentin 300 mg capsule 300 mg PO TID Qty: 90 RF: 0 meloxicam 15 mg tablet 15 mg PO DAILY Qty: 30 RF: 0 trazodone 100 mg Tablet 100 mg PO BEDTIME RF: 0 diclofenac sodium [Voltaren Arthritis Pain] 1 % Gel 2 g TOPICAL QID PRN (Reason: Pain) RF: 0 Discharge Orders: Discharge Order (Routine); Ordered 11/10/21 Ordered By: Yasemin Blnaton Referrals: [facility], [Staff Physician] - 4-7 days Discharge Diet: Regular Discharge Activity: Increase activity as tolerated Patient Instructions: Opioid Safety Discharge Attestations Time Spent in Discharge Care*: less than 30 min Status at Discharge: Cognitive status at discharge: cognitively intact, Behavioral status at discharge: cooperative, Quality Metrics Clinical Quality Measures During this hospital stay, did patient experience: None Coding Level of Care Code Acute g [facility] note Diagnoses Alcoholic fatty liver K70.0 Dehydration E86.0 Lactic acidosis E87.2 Hyponatremia E87.1 Osteoarthritis involving multiple joints on both sides of body M15.9 Left knee pain M25.562 Alcohol use disorder, severe, dependence F10.20 Iron deficiency anemia D50.8 Iron deficiency anemia type: other iron deficiency
[2021-11-10] MEDS: folic acid 1 mg Tablet PO (09:49)
[2021-11-10] MEDS: trazodone 100 mg Tablet PO (09:49)
[2021-11-10] MEDS: multivitamin therapeutic Tablet 1 TAB PO (09:49)
[2021-11-10] MEDS: levoFLOXacin 750 mg Tablet PO (09:49)
[2021-11-10] MEDS: gabapentin 300 mg Capsule PO (09:49)
[2021-11-10] MEDS: labetalol 200 mg Tablet 100 MG PO (09:50)
[2021-11-10] MEDS: pantoprazole DR 40 mg Tablet PO (09:51)
[2021-11-10] MEDS: thiamine 100 mg Tablet PO (09:57)
== END 2021-11-10 13:25 | disposition home or self-care (01) | DRG 897 ==
LOC: ER 11-08 00:33 → MEDSURG 11-08 02:06
PROVIDERS: Family Medicine; Admitting Provider Internal Medicine; Emergency Provider Emergency Medicine; Visit Provider Internal Medicine
DX: F10.239 Alcohol dependence with withdrawal, unspecified (principal); E87.2 Acidosis; E87.1 Hypo-osmolality and hyponatremia; N39.0 Urinary tract infection, site not specified; Z68.41 Body mass index [BMI] 40.0-44.9, adult; K70.0 Alcoholic fatty liver; E86.0 Dehydration; M15.9 Polyosteoarthritis, unspecified; D50.8 Other iron deficiency anemias; F31.9 Bipolar disorder, unspecified; R00.0 Tachycardia, unspecified; I44.0 Atrioventricular block, first degree; R74.01 Elevation of levels of liver transaminase levels; F43.12 Post-traumatic stress disorder, chronic
CPT/HCPCS: 36415; 36600; 71045; 73560; 74177; 80048; 80053; 80307; 81001; 82607; 82803; 83605; 83690; 83735; 84100; 84145; 85025; 85610; 85730; 87040; 87426; 93005; 96365; 96367; 96372; 96375; 99285; C9113; G0378; J1170; J1650; J2060; J2270; J2405; J2543; J2550; J3370; J3411; J3475; J7030; J7050; Q9967

== ENCOUNTER → 2021-11-18 15:24 | Outpatient (BNVA) | payer MEDICAID, SELFPAY | PROVIDERS: Visit Provider Obstetrics & Gynecology | DX: Z87.440 Personal history of urinary (tract) infections (principal); Z12.4 Encounter for screening for malignant neoplasm of cervix | CPT/HCPCS: 81000; 87086; 87624 ==

== ENCOUNTER 2021-12-02 03:26 | Inpatient (IN) | payer MEDICAID, SELFPAY ==
[2021-12-02 03:28] VITALS: BP 160/109; PULSE 115; RESP 20; TEMP 36.9; O2SAT 100; BMI 39.5
--- NOTE | 2021-12-02 03:29 | ECG_ITS ---
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
[2021-12-02 03:31] VITALS: BP 160/109; PULSE 115; RESP 20; TEMP 36.9; O2SAT 100
--- NOTE | 2021-12-02 03:31 | ED.C_ITS ---
Documented by User: Jerri Sarabia MD 12/04/21 05:50 HPI - Psych General: Chief Complaint: Psychiatric Symptoms Stated Complaint: si Time Seen by Provider: 12/02/21 03:27 Source: patient and EMS Mode of arrival: EMS Limitations: no limitations History of Present Illness: 51-year-old female who is well-known to the ER has a history of chronic alcoholism. She states she has been getting increasingly depressed because she cannot stop drinking. She states she been having inc reasing suicidal thoughts and has been having a plan of cutting her wrist. She denies any worsening improving factors denies any medical complaints at this time she states her last drink was yesterday morning Associated symptoms: Reports depression and suicidal ideation Review of Systems Const: Denies: fever(s), chills, body aches or change in appetite Eyes: Denies: blurry vision or eye discomfort ENMT: Denies: throat pain or dental pain Card: Denies: chest pain Resp: Denies: dyspnea GI: Denies: abdominal pain, nausea, vomiting or diarrhea : Denies: dysuria Musc: Denies: neck pain or back pain Skin/Breast: Denies: rash Neuro: Denies: headache(s) Psych: Reports: depression and suicidal ideation Marlon/Lymph: Denies: easy bruising All/Imm: Denies: urticaria PFSH ED PFSH: Medical History Alcohol dependence Has been prescribed antabuse Alcohol use disorder, severe, dependence Anxiety Bipolar disorder Chronic post-traumatic stress disorder (PTSD) Depressive disorder History of Wernicke's encephalopathy Hx of cholecystitis Iron deficiency anemia Left knee pain Obesity (BMI 35.0-39.9 without comorbidity) Osteoarthritis involving multiple joints on both sides of body Psychiatric care Recurrent pancreatitis Suicidal thoughts in the past Surgical History History of Hx of gastric bypass Hx of hernia repair Hx of tubal ligation Hx of unilateral salpingectomy Right Family History Mother Diabetes Hyperlipidemia Hypertension Father Diabetes Heart disease Hyperlipidemia Hypertension Grandfather Diabetes Maternal and paternal Denies family history of CAD (coronary artery disease) Chronic kidney disease (CKD) Bleeding disorder Cancer Stroke Social History Smoking and tobacco status: never smoked Alcohol intake: current History of recent travel: No Current gender identity: Female Female Reproductive History: Date of last menstrual period: 05/25/21 Physical Exam Const: COMMON NORMALS: no acute distress, patient oriented x3 and healthy appearing HENMT: COMMON NORMALS: normocephalic and atraumatic HEAD & SCALP: normocephalic and atraumatic Eye: COMMON NORMALS: Equal, round and reactive pupils present and EOMs intact bilaterally PUPIL: Yes Equal, round and reactive pupils present Neck/C-Spine: COMMON NORMALS: full ROM and supple Chest: COMMONS NORMALS: normal inspection of the chest and normal palpation of entire chest wall Resp: COMMON NORMALS: normal respiratory effort, No retractions, No use of accessory muscles and clear to auscultation bilaterally AUSCULTATION: clear to auscultation bilaterally Cardio: COMMON NORMALS: regular rate, regular rhythm and No murmurs present (Cardio) RATE: regular rate RHYTHM: regular rhythm GI: COMMON NORMALS: Normal to inspection, nondistended, normoactive bowel sounds present, Soft to palpation, non-tender and no masses PALPATION: Yes Soft to palpation Extremity: COMMON NORMALS: normal to inspection and full ROM Neuro: COMMON NORMALS: patient oriented x3, moves all extremities and no focal motor deficits Psych: COMMON NORMALS: mental status grossly normal, Normal thought process present and cooperative THOUGHT PROCESS: Normal thought process present THOUGHT CONTENT: Yes Suicidality present Skin: COMMON NORMALS: no rashes or lesions noted and no wounds GENERAL SKIN EXAM: no rashes or lesions noted Course Vital Signs: Vital signs: Vital Signs Temperature 98.4 F 12/06/21 14:30 Pulse Rate 84 12/06/21 14:30 Respiratory Rate 18 12/06/21 14:30 Blood Pressure 142/98 12/06/21 14:30 Pulse Oximetry 94 12/06/21 14:30 MDM - Psych Lab Data : 12/02/21 03:42 12/02/21 03:42 Laboratory Results WBC 6.7 10^3/uL (4.0-10.0) 12/02/21 03:42 RBC 4.77 10^6/uL (4.1-5.3) 12/02/21 03:42 Hgb 14.4 g/dL (11.5-15.3) 12/02/21 03:42 Hct 43.0 % (37.0-47.0) 12/02/21 03:42 MCV 90.1 fl (81-99) 12/02/21 03:42 MCH 30.2 pg (28.0-34.0) 12/02/21 03:42 MCHC 33.5 g/dL (30.0-36.0) 12/02/21 03:42 RDW 13.5 % (12.1-15.1) 12/02/21 03:42 Plt Count 182 10^3/cmm (130-400) 12/02/21 03:42 MPV 9.3 fL (7.4-10.4) 12/02/21 03:42 Neut % (Auto) 75.3 % 12/02/21 03:42 Lymph % (Auto) 18.3 % 12/02/21 03:42 [place] % (Auto) 5.9 % 12/02/21 03:42 Eos % (Auto) 0.0 % 12/02/21 03:42 Baso % (Auto) 0.2 % 12/02/21 03:42 Neut # (Auto) 5.01 10^3/uL (1.8-7.7) 12/02/21 03:42 Lymph # (Auto) 1.2 10^3/uL (0.8-4.8) 12/02/21 03:42 [place] # (Auto) 0.4 10^3/uL (0.2-0.9) 12/02/21 03:42 Eos # (Auto) 0.0 10^3/uL (0.0-0.8) 12/02/21 03:42 Baso # (Auto) 0.0 10^3/uL (0.0-0.1) 12/02/21 03:42 Nucleated RBC % (auto) 0 % 12/02/21 03:42 Nucleated RBCs # 0.0 /100WBC 12/02/21 03:42 Sodium 139 mmol/L (136-145) 12/02/21 03:42 Potassium 4.2 mmol/L (3.5-5.1) 12/02/21 03:42 Chloride 92 mmol/L (98-107) L 12/02/21 03:42 Carbon Dioxide 18 mmol/L (22-29) L 12/02/21 03:42 Anion Gap 33.2 (5-19) H 12/02/21 03:42 BUN 14 mg/dL (6-20) 12/02/21 03:42 Creatinine 0.7 mg/dL (0.5-0.9) 12/02/21 03:42 GFR Calculation 88.9 mL/min (90-130) L 12/02/21 03:42 Glucose 134 mg/dL (65-115) H 12/02/21 03:42 Calculated Osmolality 290 mOsm/kg (285-295) 12/02/21 03:42 Calcium 7.8 mg/dL (8.5-10.5) L 12/02/21 03:42 Total Bilirubin 1.2 mg/dL (0.15-1.2) 12/02/21 03:42 AST 44 U/L (0-32) H 12/02/21 03:42 ALT 61 U/L (0-33) H 12/02/21 03:42 Alkaline Phosphatase 222 IU/L (35-105) H 12/02/21 03:42 Total Protein 7.0 g/dL (6.6-8.7) 12/02/21 03:42 Albumin 4.7 g/dL (3.5-5.2) 12/02/21 03:42 Globulin 2.3 g/dL (1.3-4.6) 12/02/21 03:42 Salicylates < 0.3 mg/dL (3-10) L 12/02/21 03:42 Urine Opiates Screen Negative ng/mL (Negative) 12/02/21 03:54 Acetaminophen < 5.0 ug/mL (10-30) L 12/02/21 03:42 Ur Barbiturates Screen Negative ng/mL (Negative) 12/02/21 03:54 Ur Phencyclidine Scrn Negative ng/mL (Negative) 12/02/21 03:54 Ur Amphetamines Screen Negative ng/mL (Negative) 12/02/21 03:54 U Benzodiazepines Scrn Negative ng/mL (Negative) 12/02/21 03:54 Urine Cocaine Screen Negative ng/mL (Negative) 12/02/21 03:54 U Marijuana (THC) Screen Negative ng/mL (Negative) 12/02/21 03:54 Ethyl Alcohol 277 mg/dL (0-10) H 12/02/21 03:42 Coronavirus 229E (PCR) Not detected (NOT DETECT) 12/02/21 04:06 SARS-CoV-2 (PCR) Detected (NOT DETECT) A 12/02/21 04:06 EKG Data EKG 1: I personally reviewed and interpreted this EKG as follows: EKG interpretation date: 12/02/21 EKG interpretation time: 03:49 Interpretation: Sinus tachycardia heart rate [address] or T wave abnormalities QRS 86 QTC 419 Discharge Plan Discharge Patient Disposition: Admitted As Inpatient Admit Provider: Ronny Del Castillo Clinical Impression: Suicidal ideation, Alcohol use disorder, severe, dependence, Obesity (BMI 35.0- 39.9 without comorbidity), Depression, COVID-19 Condition: Stable Discharge Orders: Discharge Order (Routine); Ordered 12/06/21 Ordered By: Ronny Del Castillo Discharge Diet: Regular Discharge Activity: Resume usual activity Sign Out Sign Out Data: Patient Sign Out occurred on 12/02/21 at 06:36. Patient's care was discussed, and care was transferred from to Aldo Jenkins DO. Coding Level of Care Code ED Road Roller Operator for Chg Fwd Exam Comprehensive Documented by User: Aldo Jenkins DO 12/07/21 06:41 HPI - Psych General: Chief Complaint: Psychiatric Symptoms Stated Complaint: si Time Seen by Provider: 12/02/21 03:27 History of Present Illness: MD complaint: suicidal ideation [facility] ED PFSH: Medical History Alcohol dependence Has been prescribed antabuse Alcohol use disorder, severe, dependence Anxiety Bipolar disorder Chronic post-traumatic stress disorder (PTSD) Depressive disorder History of Wernicke's encephalopathy Hx of cholecystitis Iron deficiency anemia Left knee pain Obesity (BMI 35.0-39.9 without comorbidity) Osteoarthritis involving multiple joints on both sides of body Psychiatric care Recurrent pancreatitis Suicidal thoughts in the past Surgical History History of Hx of gastric bypass Hx of hernia repair Hx of tubal ligation Hx of unilateral salpingectomy Right Family History Mother Diabetes Hyperlipidemia Hypertension Father Diabetes Heart disease Hyperlipidemia Hypertension Grandfather Diabetes Maternal and paternal Denies family history of CAD (coronary artery disease) Chronic kidney disease (CKD) Bleeding disorder Cancer Stroke Social History Smoking and tobacco status: never smoked Alcohol intake: current History of recent travel: No Current gender identity: Female Course Vital Signs: Vital signs: Vital Signs Temperature 98.4 F 12/06/21 14:30 Pulse Rate 84 12/06/21 14:30 Respiratory Rate 18 12/06/21 14:30 Blood Pressure 142/98 12/06/21 14:30 Pulse Oximetry 94 12/06/21 14:30 MDM - Psych Medical Decision Making Patient has history of alcoholism and is making suicidal ideation comments. As part of a screening she was checked for Covid and does indeed have COVID-19 and talking to her she had cough and mild flulike symptom that started a week ago they are still improving but the cough is still present she is not exhibiting any hypoxia. We will discussed with psychiatry. Discussed with psychiatry. At this point she will have to be admitted to the medical surgical floor with psychiatry consult. She is admitted primarily for her psychiatric complaints. Her COVID-19 this is incidental finding if she had not had the suicidal ideation and psychiatric issues she would have been discharged home for outpatient care with COVID. Medical Records I reviewed the patient's medical records. Lab Data I reviewed the patient's lab results. : 12/02/21 03:42 12/02/21 03:42 Laboratory Results WBC 6.7 10^3/uL (4.0-10.0) 12/02/21 03:42 RBC 4.77 10^6/uL (4.1-5.3) 12/02/21 03:42 Hgb 14.4 g/dL (11.5-15.3) 12/02/21 03:42 Hct 43.0 % (37.0-47.0) 12/02/21 03:42 MCV 90.1 fl (81-99) 12/02/21 03:42 MCH 30.2 pg (28.0-34.0) 12/02/21 03:42 MCHC 33.5 g/dL (30.0-36.0) 12/02/21 03:42 RDW 13.5 % (12.1-15.1) 12/02/21 03:42 Plt Count 182 10^3/cmm (130-400) 12/02/21 03:42 MPV 9.3 fL (7.4-10.4) 12/02/21 03:42 Neut % (Auto) 75.3 % 12/02/21 03:42 Lymph % (Auto) 18.3 % 12/02/21 03:42 [place] % (Auto) 5.9 % 12/02/21 03:42 Eos % (Auto) 0.0 % 12/02/21 03:42 Baso % (Auto) 0.2 % 12/02/21 03:42 Neut # (Auto) 5.01 10^3/uL (1.8-7.7) 12/02/21 03:42 Lymph # (Auto) 1.2 10^3/uL (0.8-4.8) 12/02/21 03:42 [place] # (Auto) 0.4 10^3/uL (0.2-0.9) 12/02/21 03:42 Eos # (Auto) 0.0 10^3/uL (0.0-0.8) 12/02/21 03:42 Baso # (Auto) 0.0 10^3/uL (0.0-0.1) 12/02/21 03:42 Nucleated RBC % (auto) 0 % 12/02/21 03:42 Nucleated RBCs # 0.0 /100WBC 12/02/21 03:42 Sodium 139 mmol/L (136-145) 12/02/21 03:42 Potassium 4.2 mmol/L (3.5-5.1) 12/02/21 03:42 Chloride 92 mmol/L (98-107) L 12/02/21 03:42 Carbon Dioxide 18 mmol/L (22-29) L 12/02/21 03:42 Anion Gap 33.2 (5-19) H 12/02/21 03:42 BUN 14 mg/dL (6-20) 12/02/21 03:42 Creatinine 0.7 mg/dL (0.5-0.9) 12/02/21 03:42 GFR Calculation 88.9 mL/min (90-130) L 12/02/21 03:42 Glucose 134 mg/dL (65-115) H 12/02/21 03:42 Calculated Osmolality 290 mOsm/kg (285-295) 12/02/21 03:42 Calcium 7.8 mg/dL (8.5-10.5) L 12/02/21 03:42 Total Bilirubin 1.2 mg/dL (0.15-1.2) 12/02/21 03:42 AST 44 U/L (0-32) H 12/02/21 03:42 ALT 61 U/L (0-33) H 12/02/21 03:42 Alkaline Phosphatase 222 IU/L (35-105) H 12/02/21 03:42 Total Protein 7.0 g/dL (6.6-8.7) 12/02/21 03:42 Albumin 4.7 g/dL (3.5-5.2) 12/02/21 03:42 Globulin 2.3 g/dL (1.3-4.6) 12/02/21 03:42 Salicylates < 0.3 mg/dL (3-10) L 12/02/21 03:42 Urine Opiates Screen Negative ng/mL (Negative) 12/02/21 03:54 Acetaminophen < 5.0 ug/mL (10-30) L 12/02/21 03:42 Ur Barbiturates Screen Negative ng/mL (Negative) 12/02/21 03:54 Ur Phencyclidine Scrn Negative ng/mL (Negative) 12/02/21 03:54 Ur Amphetamines Screen Negative ng/mL (Negative) 12/02/21 03:54 U Benzodiazepines Scrn Negative ng/mL (Negative) 12/02/21 03:54 Urine Cocaine Screen Negative ng/mL (Negative) 12/02/21 03:54 U Marijuana (THC) Screen Negative ng/mL (Negative) 12/02/21 03:54 Ethyl Alcohol 277 mg/dL (0-10) H 12/02/21 03:42 Coronavirus 229E (PCR) Not detected (NOT DETECT) 12/02/21 04:06 SARS-CoV-2 (PCR) Detected (NOT DETECT) A 12/02/21 04:06 Discharge Plan Discharge Patient Disposition: Admitted As Inpatient Admit Provider: Ronny Del Castillo Clinical Impression: Suicidal ideation, Alcohol use disorder, severe, dependence, Obesity (BMI 35.0- 39.9 without comorbidity), Depression, COVID-19 Condition: Stable Discharge Orders: Discharge Order (Routine); Ordered 12/06/21 Ordered By: Ronny Del Castillo Discharge Diet: Regular Discharge Activity: Resume usual activity Sign Out Sign Out Data: Patient Sign Out occurred on 12/02/21 at 06:36. Patient's care was discussed, and care was transferred from to Aldo Jenkins DO. Coding Level of Care Code ED Road Roller Operator for Jermaineg Fwd Exam Comprehensive
[2021-12-02] MEDS: LORazepam 2 mg/mL INJ 1 mL IM ×2 (03:45→21:04)
[2021-12-02 03:51] LABS: Basophils % 0.2 %; Hemoglobin 14.4 g/dL (11.5-15.3); Lymphocytes # 1.2 10^3/uL (0.8-4.8); Lymphocytes % 18.3 %; Mean Corpuscular HGB Conc 33.5 g/dL (30.0-36.0); Mean Corpuscular Hemoglobin 30.2 pg (28.0-34.0); Mean Corpuscular Volume 90.1 fl (81-99); Mean Platelet Volume 9.3 fL (7.4-10.4); Monocytes # 0.4 10^3/uL (0.2-0.9); Monocytes % 5.9 %; Neutrophils # 5.01 10^3/uL (1.8-7.7); Neutrophils % 75.3 %; Nucleated Red Blood Cells % 0 %; Platelet Count 182 10^3/cmm (130-400); Red Blood Count 4.77 10^6/uL (4.1-5.3); Red Cell Distribution Width 13.5 % (12.1-15.1); White Blood Count 6.7 10^3/uL (4.0-10.0)
[2021-12-02 04:02] LABS: Alanine Aminotransferase 61 U/L (0-33); Albumin Level 4.7 g/dL (3.5-5.2); Alcohol Level 277 mg/dL (0-10); Alkaline Phosphatase 222 IU/L (35-105); Anion Gap 33.2 (5-19); Aspartate Amino Transferase 44 U/L (0-32); Blood Urea Nitrogen 14 mg/dL (6-20); Calcium 7.8 mg/dL (8.5-10.5); Carbon Dioxide 18 mmol/L (22-29); Chloride 92 mmol/L (98-107); Globulin 2.3 g/dL (1.3-4.6); Glomerular Filtration Rate 88.9 mL/min (90-130); Glucose 134 mg/dL (65-115); Osmolality Calculated 290 mOsm/kg (285-295); Potassium 4.2 mmol/L (3.5-5.1); Sodium 139 mmol/L (136-145); Total Bilirubin 1.2 mg/dL (0.15-1.2)
[2021-12-02 04:03] LABS: Acetaminophen < 5.0 ug/mL (10-30); Salicylate < 0.3 mg/dL (3-10)
[2021-12-02] MEDS: metoclopramide 5 mg/mL SDV 2 mL 10 MG IM (04:08)
[2021-12-02] MEDS: diphenhydrAMINE 50 mg/mL SDV 1mL IM (04:08)
[2021-12-02 04:27] LABS: Amphetamines Screen Urine Negative (Negative); Barbiturates Screen Urine Negative (Negative); Benzodiazepines Screen Urine Negative (Negative); Cocaine Screen Urine Negative (Negative); Opiate Screen Urine Negative (Negative); PCP Screen Urine Negative (Negative); THC Screen Urine Negative (Negative)
[2021-12-02] MEDS: sodium chloride 0.9% 1,000 ML 999 ML IV ×2 (04:30→05:23)
[2021-12-02] MEDS: multivitamin therapeutic Tablet 1 TAB PO (05:19)
[2021-12-02 06:00] LABS: Adenovirus Not Detected (NOT DETECT); Chlamydia Pneumoniae Not Detected (NOT DETECT); Coronavirus 229E,HKU1,NL63,OC4 Not Detected (NOT DETECT); Human Metapneumovirus Not Detected (NOT DETECT); Human Rhinovirus/Enterovirus Not Detected (NOT DETECT); Influenza A Not Detected (NOT DETECT); Influenza A H1 Not Detected (NOT DETECT); Influenza A H1-2009 Not Detected (NOT DETECT); Influenza A H3 Not Detected (NOT DETECT); Influenza B Not Detected (NOT DETECT); Mycoplasma Pneumoniae Not Detected (NOT DETECT); Parainfluenza Virus Type 1 Not Detected (NOT DETECT); Parainfluenza Virus Type 2 Not Detected (NOT DETECT); Parainfluenza Virus Type 3 Not Detected (NOT DETECT); Parainfluenza Virus Type 4 Not Detected (NOT DETECT); Respiratory Syncytial Virus A Not Detected (NOT DETECT); Respiratory Syncytial Virus B Not Detected (NOT DETECT); SARS-COV-2 Detected (NOT DETECT)
[2021-12-02] MEDS: LORazepam 2 mg Tablet PO (06:46)
[2021-12-02] MEDS: LORazepam 2 mg/mL INJ 1 mL IVP (11:00)
[2021-12-02 12:46] VITALS: PULSE 85; RESP 14; O2SAT 96
[2021-12-02 18:15] VITALS: BMI 39.5
[2021-12-02 18:21] VITALS: BP 166/105; PULSE 104; RESP 17; O2SAT 95
[2021-12-03] VITALS (7 sets, daily range): BP systolic 150–181; BP diastolic 92–122; PULSE 18–103; RESP 15–89; TEMP 36.7–37.4; O2SAT 95–97
[2021-12-03] MEDS: LORazepam 2 mg Tablet PO ×3 (05:35→20:30)
[2021-12-03] MEDS: multivitamin therapeutic Tablet 1 TAB PO (08:54)
[2021-12-03] MEDS: thiamine 100 mg Tablet PO (08:54)
[2021-12-03] MEDS: hyDRALAzine 10 mg Tablet PO ×3 (08:54→23:35)
[2021-12-03] MEDS: folic acid 1 mg Tablet PO (08:54)
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
[2021-12-03] MEDS: ondansetron 2 mg/ML SDV 2 mL 4 MG IVP (20:28)
[2021-12-04] VITALS (8 sets, daily range): BP systolic 137–176; BP diastolic 90–122; PULSE 75–91; RESP 16–18; TEMP 36.6–37.4; O2SAT 94–97
[2021-12-04] MEDS: LORazepam 2 mg Tablet PO (03:25)
--- NOTE | 2021-12-04 05:56 | PC.NURSE ---
Patient resting through most of the night. Apresoline given with results. Patient complaints of headache one time during the night. Sitter in room. Will continue to monitor.
[2021-12-04] MEDS: folic acid 1 mg Tablet PO (09:17)
[2021-12-04] MEDS: multivitamin therapeutic Tablet 1 TAB PO (09:17)
[2021-12-04] MEDS: thiamine 100 mg Tablet PO (09:17)
--- NOTE | 2021-12-04 13:14 | W.PM.NPUPNS ---
Subjective NPU Subjective: Interval history: She continues to be fairly depressed. Her mood is a little bit better since she talked with her boyfriend earlier today and he said that he loves her He is trying to decide whether or not he is going to ask her back. They have been together for 4 years. He has been very good to her. They have been arguing lately about her drinking. She is convincing him that she is going to get help through the [facility]. She has been having some stomach difficulties. She takes a medication that starts with a P for that when she has difficulties. She agreed to take a proton pump inhibitor before dinner tonight and then before breakfast in the mornings. She is also been having some sweating and will try some Cogentin. Mental Status Exam MSE Comments: This is a 51-year old, obese, female who appears older than her stated age and is in no acute distress. She is pleasant and cooperative with evaluation. She is dressed with a hospital gown and is lying in bed. Her grooming is fairly good. psychomotor activity mildly decreased. Speech is at a regular rate and rhythm, normal volume, good articulation, not pressured. Alert, oriented X3 Attention and concentration is good. Memory is intact Mood is depressed. Affect is mildly dysphoric. Thought process is logical and goal-directed. Thought content: Denies auditory and visual hallucinations. No delusions or paranoia are noted. No current suicidal ideation, and no homicidal ideation. Fund of knowledge is average. Insight and judgment appear to be limited. Impulse control is poor. Cognition: Patient Appearance: Disheveled/Poor Hygiene Level of Consciousness: Awake, Alert, Appropriate and Follows Commands Patient Cognition Impaired: No Ability to Follow Directions: Excellent Patient Orientation (long list): Person, Place, Time, Name, Age, Birthday, Day of Month, Month, Time of Day and Year Hallucination Type: None Delusion Description: Not Present Thought Process: Appropriate Affect: Affect Description: Anxious Depressive Symptoms: Feelings of Worthlessness and Unhappiness Behavior: Patient Behavior: Appropriate and Cooperative Speech Pattern: Appropriate and Clear Vitals/I&O/Wt Last Vital Signs Temp 99.1 F 12/04/21 10:48 Pulse 89 12/04/21 10:48 Resp 18 12/04/21 10:48 BP 176/101 12/04/21 10:48 Pulse Ox 96 12/04/21 10:48 12/03/21 12/04/21 12/04/21 22:59 06:59 14:59 Intake Total 580 / 580 480 / 1060 360 / 360 Balance 580 / 580 480 / 1060 360 / 360 Weight last 48 hrs Weight 119.386 kg Weight 118.524 kg Weight 117.934 kg Data NPU : 12/02/21 03:42 12/02/21 03:42 A&P Assessment and plan (1) Alcohol use disorder, severe, dependence: Status: Acute (2) Alcoholic fatty liver: Status: Acute (3) Anxiety: Status: Acute (4) Chronic post-traumatic stress disorder (PTSD): Status: Chronic (5) Obesity (BMI 35.0-39.9 without comorbidity): Status: Chronic Plan This is a 51-year-old female with 10 hospitalizations in the last 2 years for alcohol and depression with suicidal ideation. Plan: 1. Continue current medication. Prozac 80 mg and trazodone 150 mg. will add some protonix and cogentin. 2. Continue every 15 minute checks for safety. 3. Encourage individual, group and milieu therapies. 4. Encourage sober living treatment after discharge at the highest level of care to which she is willing to commit. 5. We will monitor for safety for herself in the community prior to discharge. Involuntary Hold Information 96 Hour Hold: 96 Hour Involuntary Admission: Yes 96 Hour Hold Ending Date: 09/28/21 96 Hour Hold Ending Time: 00:48 Attestations NPU Medical Necessity Statement*: Inpatient hospitalization is medically necessary and the clinically appropriate intervention at this time. We will initiate medications and make changes as indicated. Coding Level of Care Code Acute Staff Nurse Anesthetist for Hannah Fulton Diagnoses Alcohol use disorder, severe, dependence F10.20 Alcoholic fatty liver K70.0 Anxiety F41.9 Chronic post-traumatic stress disorder (PTSD) F43.12 Obesity (BMI 35.0-39.9 without comorbidity) E66.9
[2021-12-04] MEDS: fluoxetine 20 mg Capsule 80 MG PO (15:22)
[2021-12-04] MEDS: pantoprazole DR 40 mg Tablet PO (15:22)
[2021-12-04] MEDS: hyDRALAzine 10 mg Tablet PO ×2 (18:02→20:39)
[2021-12-04] MEDS: benztropine 1 mg Tablet PO (18:02)
[2021-12-04] MEDS: trazodone 150 mg Tablet PO (20:39)
[2021-12-04] MEDS: ondansetron 2 mg/ML SDV 2 mL 4 MG IVP (21:15)
[2021-12-05 03:38] VITALS: BP 159/93; PULSE 76; RESP 18; TEMP 37.1; O2SAT 96
[2021-12-05] MEDS: benztropine 1 mg Tablet PO (06:40)
[2021-12-05] MEDS: fluoxetine 20 mg Capsule 80 MG PO (07:41)
[2021-12-05] MEDS: pantoprazole DR 40 mg Tablet PO (07:41)
[2021-12-05] MEDS: multivitamin therapeutic Tablet 1 TAB PO (07:41)
[2021-12-05] MEDS: thiamine 100 mg Tablet PO (07:41)
[2021-12-05] MEDS: folic acid 1 mg Tablet PO (07:41)
[2021-12-05 08:00] VITALS: BP 126/83; PULSE 80; RESP 14; TEMP 37.1; O2SAT 97
[2021-12-05] MEDS: ondansetron 2 mg/ML SDV 2 mL 4 MG IVP (08:28)
--- NOTE | 2021-12-05 10:26 | W.PM.NPUPNS ---
Subjective NPU Subjective: Interval history: She says that she is doing so-so . Her sweating stopped last night after she took the Cogentin. However she has a bad dry mouth. She agreed to it cut the dose in half.She says that she slept fairly well with the trazodone 150 mg last night. She has some abdominal pain and cramping but her gastric area is better. She did have a bowel movement yesterday. Her blood pressure was fine this morning. She is not having side effects from the Prozac 80 mg. She continues to say that she is going to get help for her alcoholism from the [facility]. Mental Status Exam MSE Comments: This is a 51-year old, obese, female who appears older than her stated age and is in no acute distress. She is pleasant and cooperative with evaluation. She is dressed with a hospital gown and is lying in bed. Her grooming is fairly good. psychomotor activity mildly decreased. Speech is at a regular rate and rhythm, normal volume, good articulation, not pressured. Alert, oriented X3 Attention and concentration is good. Memory is intact Mood is depressed. Affect is mildly dysphoric. Thought process is logical and goal-directed. Thought content: Denies auditory and visual hallucinations. No delusions or paranoia are noted. No current suicidal ideation, and no homicidal ideation. Fund of knowledge is average. Insight and judgment appear to be limited. Impulse control is poor. Cognition: Patient Appearance: Disheveled/Poor Hygiene Level of Consciousness: Awake, Alert, Appropriate and Follows Commands Patient Cognition Impaired: No Ability to Follow Directions: Excellent Patient Orientation (long list): Person, Place, Time, Name, Age, Birthday, Day of Month, Month, Time of Day and Year Hallucination Type: None Delusion Description: Not Present Thought Process: Appropriate Affect: Affect Description: Anxious Depressive Symptoms: Feelings of Worthlessness and Unhappiness Behavior: Patient Behavior: Appropriate and Cooperative Speech Pattern: Appropriate and Clear Vitals/I&O/Wt Last Vital Signs Temp 98.7 F 12/05/21 03:38 Pulse 76 12/05/21 03:38 Resp 18 12/05/21 03:38 BP 159/93 12/05/21 03:38 Pulse Ox 96 12/05/21 03:38 12/04/21 12/05/21 12/05/21 22:59 06:59 14:59 Intake Total 480 / 1320 Balance 480 / 1320 Weight last 48 hrs Weight 119.386 kg Data NPU : 12/02/21 03:42 12/02/21 03:42 A&P Assessment and plan (1) Alcohol use disorder, severe, dependence: Status: Acute (2) Alcoholic fatty liver: Status: Acute (3) Anxiety: Status: Acute (4) Chronic post-traumatic stress disorder (PTSD): Status: Chronic (5) Obesity (BMI 35.0-39.9 without comorbidity): Status: Chronic Plan This is a 51-year-old female with 10 hospitalizations in the last 2 years for alcohol and depression with suicidal ideation. Plan: 1. Continue current medication. Prozac 80 mg and trazodone 150 mg. will add some protonix and cogentin. 2. Continue every 15 minute checks for safety. 3. Encourage individual, group and milieu therapies. 4. Encourage sober living treatment after discharge at the highest level of care to which she is willing to commit. 5. We will monitor for safety for herself in the community prior to discharge. Involuntary Hold Information 96 Hour Hold: 96 Hour Involuntary Admission: Yes 96 Hour Hold Ending Date: 09/28/21 96 Hour Hold Ending Time: 00:48 Attestations NPU Medical Necessity Statement*: Inpatient hospitalization is medically necessary and the clinically appropriate intervention at this time. We will initiate medications and make changes as indicated. Coding Level of Care Code Acute Credit And Collections Representative for Hannah Fulton Diagnoses Alcohol use disorder, severe, dependence F10.20 Alcoholic fatty liver K70.0 Anxiety F41.9 Chronic post-traumatic stress disorder (PTSD) F43.12 Obesity (BMI 35.0-39.9 without comorbidity) E66.9
[2021-12-05 12:00] VITALS: BP 149/101; PULSE 106; RESP 13; TEMP 37.1; O2SAT 94
[2021-12-05] MEDS: hyDRALAzine 10 mg Tablet PO ×2 (14:36→19:52)
--- NOTE | 2021-12-05 18:15 | ECG_ITS ---
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 Measurements Intervals [place] Rate: 73 P: 5 SC: 168 QRS: 36 QRSD: 93 T: 30 QT: 404 QTc: 448 Interpretive Statements SINUS RHYTHM Compared to ECG 12/02/2021 03:49:26 Sinus tachycardia no longer present Electronically Signed On 12-05-2021 21:27:34 GUT PULLER by Alex Thakkar M.D. [id number]
--- NOTE | 2021-12-05 18:15 | PC.NURSE ---
patient complains of chest pain. Dr Del Castillo notified and ordered EKG set and Troponin set. telegraphic typewriter operator put order in.
[2021-12-05] MEDS: benztropine 1 mg Tablet 0.5 MG PO (18:17)
[2021-12-05 19:04] LABS: Troponin T (5th) Once 6 ng/L (0-10)
[2021-12-05 19:12] VITALS: BP 150/103; PULSE 74; RESP 18; TEMP 36.8; O2SAT 98
[2021-12-05] MEDS: trazodone 150 mg Tablet PO (20:01)
--- NOTE | 2021-12-05 20:15 | ECG_ITS ---
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 Measurements Intervals [place] Rate: 67 P: 33 [place]: 167 QRS: 34 QRSD: 98 T: 28 QT: 445 QTc: 471 Interpretive Statements SINUS RHYTHM POSSIBLE ANTERIOR MYOCARDIAL INFARCTION , OF INDETERMINATE AGE [30 ms Q WAVE IN V3/V4, OR R < 0.2 mV IN V4] Compared to ECG 12/05/2021 18:21:19 Myocardial infarct finding now present Electronically Signed On 12-07-2021 14:53:04 ELECTRIC BLANKET PACKER by Erica Raines M.D. [email or web address] Systemsneshoba county general hospitalTwisted Family Creationscleveland clinic [id number]
[2021-12-05 21:01] VITALS: BP 140/92
[2021-12-05 21:07] LABS: Troponin 5 2HR 6.24 ng/L (0-10)
[2021-12-05 21:16] LABS: Troponin 5 2HR Delta 0.24 ABS# (0-10)
[2021-12-05] MEDS: lanolin oint 7 gm 1 APPLIC TOPICAL (22:04)
[2021-12-06] VITALS: BP 132/86; PULSE 76; RESP 18; TEMP 36.9; O2SAT 97
--- NOTE | 2021-12-06 00:15 | ECG_ITS ---
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 Measurements Intervals [place] Rate: 64 P: 45 DE: 178 QRS: 54 QRSD: 98 T: 39 QT: 447 QTc: 463 Interpretive Statements SINUS RHYTHM POSSIBLE ANTERIOR MYOCARDIAL INFARCTION , OF INDETERMINATE AGE [30 ms Q WAVE IN V3/V4, OR R < 0.2 mV IN V4] Compared to ECG 12/05/2021 22:11:48 No significant changes Electronically Signed On 12-07-2021 14:51:08 INSPECTING MACHINE ADJUSTER by Erica Raines M.D. [id number]
[2021-12-06 01:07] LABS: Troponin 5 6HR 6.33 ng/L (0-10)
[2021-12-06 01:22] LABS: Troponin 5 6HR Delta 0.33 ng/L (0-12)
[2021-12-06] MEDS: ondansetron 2 mg/ML SDV 2 mL 4 MG IVP (01:24)
[2021-12-06 04:00] VITALS: BP 131/85; PULSE 86; RESP 18; TEMP 36.7; O2SAT 94
[2021-12-06] MEDS: benztropine 1 mg Tablet 0.5 MG PO (06:09)
[2021-12-06 08:00] VITALS: BP 145/90; PULSE 67; RESP 18; TEMP 37; O2SAT 96
[2021-12-06] MEDS: folic acid 1 mg Tablet PO (08:21)
[2021-12-06] MEDS: fluoxetine 20 mg Capsule 80 MG PO (08:21)
[2021-12-06] MEDS: thiamine 100 mg Tablet PO (08:21)
[2021-12-06] MEDS: pantoprazole DR 40 mg Tablet PO (08:21)
[2021-12-06] MEDS: multivitamin therapeutic Tablet 1 TAB PO (08:21)
[2021-12-06 12:00] VITALS: BP 142/98; PULSE 84; RESP 18; TEMP 36.9; O2SAT 94
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
--- NOTE | 2021-12-06 14:29 | PC.NURSE ---
discharge instructions given to patient and patient verbalized understanding of instructions. patient taken to private vehicle via wheelchair by personal lines underwriter.
[2021-12-06 14:30] VITALS: BP 142/98; PULSE 84; RESP 18; TEMP 36.9; O2SAT 94
== END 2021-12-06 14:30 | disposition home or self-care (01) | DRG 880 ==
LOC: ER 13:26 → MEDSURG 14:21
PROVIDERS: Emergency Medicine; Admitting Provider Psychiatry & Neurology Psychiatry; Emergency Provider Family Medicine; Visit Provider Psychiatry & Neurology Psychiatry
DX: F41.8 Other specified anxiety disorders (principal); U07.1 COVID-19; F10.239 Alcohol dependence with withdrawal, unspecified; R45.851 Suicidal ideations; Z68.41 Body mass index [BMI] 40.0-44.9, adult; F43.12 Post-traumatic stress disorder, chronic; E66.9 Obesity, unspecified; F60.3 Borderline personality disorder; D50.9 Iron deficiency anemia, unspecified; K70.0 Alcoholic fatty liver
CPT/HCPCS: 36415; 80053; 80306; 80307; 84484; 85025; 87635; 93005; 96361; 96372; 96374; 96375; 99285; J1200; J2060; J2405; J2765; J3411; J7030

== ENCOUNTER 2022-01-13 04:37 | Inpatient (IN) | payer MEDICAID, SELFPAY ==
[2022-01-13] VITALS (7 sets, daily range): BP systolic 123–147; BP diastolic 72–92; PULSE 100–138; RESP 16–22; TEMP 36.6–37.4; O2SAT 92–98; BMI 39.5
--- NOTE | 2022-01-13 04:48 | W.ED.PSYCHS ---
HPI - Psych General: Chief Complaint: Psychiatric Symptoms Stated Complaint: si & etoh Time Seen by Provider: 01/13/22 04:39 Source: patient and EMS Mode of arrival: EMS Limitations: no limitations History of Present Illness: 51-year-old female who has a history of alcoholism who is very well-known to the ER is here with EMS. She states that her boyfriend kicked her out of the house today and she is homeless. She states she has been walking around in called EMS from gas station because she is suicidal she has no specific plan she states she has not had a drink today. She denies any attempts denies any worsening proving factors. Associated symptoms: Reports depression and suicidal ideation Review of Systems Const: Denies: fever(s), chills, body aches or change in appetite Eyes: Denies: blurry vision or eye discomfort ENMT: Denies: throat pain or dental pain Card: Denies: chest pain Resp: Denies: dyspnea GI: Denies: abdominal pain, nausea, vomiting or diarrhea : Denies: dysuria Musc: Denies: neck pain or back pain Skin/Breast: Denies: rash Neuro: Denies: headache(s) Psych: Reports: depression and suicidal ideation Marlon/Lymph: Denies: easy bruising All/Imm: Denies: urticaria PFSH ED PFSH: Medical History Alcohol dependence Has been prescribed antabuse Alcohol use disorder, severe, dependence Allergic rhinitis due to allergen Anxiety Bipolar disorder Chronic post-traumatic stress disorder (PTSD) Depressive disorder GERD (gastroesophageal reflux disease) History of Wernicke's encephalopathy Hx of cholecystitis Iron deficiency anemia Left knee pain Obesity (BMI 35.0-39.9 without comorbidity) Osteoarthritis involving multiple joints on both sides of body Psychiatric care Recurrent pancreatitis Suicidal thoughts in the past Surgical History History of Hx of gastric bypass Hx of hernia repair Hx of tubal ligation Hx of unilateral salpingectomy Right Family History Mother Diabetes Hyperlipidemia Hypertension Father Diabetes Heart disease Hyperlipidemia Hypertension Grandfather Diabetes Maternal and paternal Denies family history of CAD (coronary artery disease) Chronic kidney disease (CKD) Bleeding disorder Cancer Stroke Social History Smoking and tobacco status: never smoked Alcohol intake: current History of recent travel: No Current gender identity: Female Female Reproductive History: Date of last menstrual period: 05/25/21 Physical Exam Const: COMMON NORMALS: patient oriented x3 and healthy appearing GENERAL APPEARANCE: disheveled HENMT: COMMON NORMALS: normocephalic and atraumatic HEAD & SCALP: normocephalic and atraumatic Eye: COMMON NORMALS: Equal, round and reactive pupils present and EOMs intact bilaterally PUPIL: Yes Equal, round and reactive pupils present Neck/C-Spine: COMMON NORMALS: full ROM and supple Chest: COMMONS NORMALS: normal inspection of the chest and normal palpation of entire chest wall Resp: COMMON NORMALS: normal respiratory effort, No retractions, No use of accessory muscles and clear to auscultation bilaterally AUSCULTATION: clear to auscultation bilaterally Cardio: COMMON NORMALS: regular rate, regular rhythm and No murmurs present (Cardio) RATE: regular rate RHYTHM: regular rhythm GI: COMMON NORMALS: Normal to inspection, nondistended, normoactive bowel sounds present, Soft to palpation, non-tender and no masses PALPATION: Yes Soft to palpation Extremity: COMMON NORMALS: normal to inspection and full ROM Neuro: COMMON NORMALS: patient oriented x3, moves all extremities and no focal motor deficits Psych: COMMON NORMALS: mental status grossly normal, Normal thought process present and cooperative THOUGHT PROCESS: Normal thought process present Skin: COMMON NORMALS: no rashes or lesions noted and no wounds GENERAL SKIN EXAM: no rashes or lesions noted Course Vital Signs: Vital signs: Vital Signs Temperature 97.8 F 01/13/22 04:39 Pulse Rate 100 01/13/22 04:39 Respiratory Rate 16 01/13/22 04:39 Blood Pressure 131/75 01/13/22 04:39 Pulse Oximetry 97 01/13/22 04:39 MDM - Psych Medical Decision Making Patient presents here with suicidal ideation is recently homeless patient is well-appearing here she has no signs of withdrawals I spoke to psychiatrist and will admit at this time. Lab Data : 01/13/22 05:39 01/13/22 05:39 Laboratory Results WBC 9.4 10^3/uL (4.0-10.0) 01/13/22 05:39 RBC 5.09 10^6/uL (4.1-5.3) 01/13/22 05:39 Hgb 15.7 g/dL (11.5-15.3) H 01/13/22 05:39 Hct 46.9 % (37.0-47.0) 01/13/22 05:39 MCV 92.1 fl (81-99) 01/13/22 05:39 MCH 30.8 pg (28.0-34.0) 01/13/22 05:39 MCHC 33.5 g/dL (30.0-36.0) 01/13/22 05:39 RDW 13.6 % (12.1-15.1) 01/13/22 05:39 Plt Count 183 10^3/cmm (130-400) 01/13/22 05:39 MPV 9.5 fL (7.4-10.4) 01/13/22 05:39 Neut % (Auto) 89.3 % 01/13/22 05:39 Lymph % (Auto) 5.1 % 01/13/22 05:39 [place] % (Auto) 5.0 % 01/13/22 05:39 Eos % (Auto) 0.1 % 01/13/22 05:39 Baso % (Auto) 0.3 % 01/13/22 05:39 Neut # (Auto) 8.35 10^3/uL (1.8-7.7) H 01/13/22 05:39 Lymph # (Auto) 0.5 10^3/uL (0.8-4.8) L 01/13/22 05:39 [place] # (Auto) 0.5 10^3/uL (0.2-0.9) 01/13/22 05:39 Eos # (Auto) 0.0 10^3/uL (0.0-0.8) 01/13/22 05:39 Baso # (Auto) 0.0 10^3/uL (0.0-0.1) 01/13/22 05:39 Nucleated RBC % (auto) 0 % 01/13/22 05:39 Nucleated RBCs # 0.0 /100WBC 01/13/22 05:39 Discharge Plan Discharge Patient Disposition: Admitted As Inpatient Clinical Impression: Suicidal ideation Condition: Stable Coding Level of Care Code ED Final Inspector Motorcyles for Chg Fwd Exam Comprehensive
[2022-01-13] MEDS: ondansetron 2 mg/ML SDV 2 mL 4 MG IM (04:56)
[2022-01-13] MEDS: multivitamin therapeutic Tablet 1 TAB PO ×2 (05:24→09:25)
[2022-01-13 05:47] LABS: Basophils % 0.3 %; Eosinophils % 0.1 %; Hematocrit 46.9 % (37.0-47.0); Hemoglobin 15.7 g/dL (11.5-15.3); Lymphocytes # 0.5 10^3/uL (0.8-4.8); Lymphocytes % 5.1 %; Mean Corpuscular HGB Conc 33.5 g/dL (30.0-36.0); Mean Corpuscular Hemoglobin 30.8 pg (28.0-34.0); Mean Corpuscular Volume 92.1 fl (81-99); Mean Platelet Volume 9.5 fL (7.4-10.4); Monocytes # 0.5 10^3/uL (0.2-0.9); Neutrophils # 8.35 10^3/uL (1.8-7.7); Neutrophils % 89.3 %; Nucleated Red Blood Cells % 0 %; Platelet Count 183 10^3/cmm (130-400); Red Blood Count 5.09 10^6/uL (4.1-5.3); Red Cell Distribution Width 13.6 % (12.1-15.1); White Blood Count 9.4 10^3/uL (4.0-10.0)
[2022-01-13 06:08] LABS: Alanine Aminotransferase 118 U/L (0-33); Albumin Level 4.6 g/dL (3.5-5.2); Alcohol Level 291 mg/dL (0-10); Alkaline Phosphatase 219 IU/L (35-105); Aspartate Amino Transferase 229 U/L (0-32); Blood Urea Nitrogen 12 mg/dL (6-20); Calcium 8.7 mg/dL (8.5-10.5); Carbon Dioxide 22 mmol/L (22-29); Chloride 94 mmol/L (98-107); Globulin 2.9 g/dL (1.3-4.6); Glomerular Filtration Rate 131.1 mL/min (90-130); Glucose 115 mg/dL (65-115); Lipase 14 U/L (13-60); Osmolality Calculated 295 mOsm/kg (285-295); Sodium 142 mmol/L (136-145); Total Bilirubin 3.7 mg/dL (0.15-1.2); Total Protein 7.5 g/dL (6.6-8.7)
[2022-01-13 06:09] LABS: Acetaminophen < 5.0 ug/mL (10-30); Salicylate < 0.3 mg/dL (3-10)
[2022-01-13] MEDS: LORazepam 1 mg Tablet PO (07:21)
[2022-01-13 07:57] LABS: Amphetamines Screen Urine Negative (Negative); Barbiturates Screen Urine Negative (Negative); Benzodiazepines Screen Urine Negative (Negative); Cocaine Screen Urine Negative (Negative); Opiate Screen Urine Negative (Negative); PCP Screen Urine Negative (Negative); THC Screen Urine Negative (Negative)
[2022-01-13] MEDS: LORazepam 2 mg Tablet PO ×5 (09:25→17:44)
[2022-01-13] MEDS: thiamine 100 mg Tablet PO (09:25)
[2022-01-13] MEDS: folic acid 1 mg Tablet PO (09:25)
[2022-01-13] MEDS: loperamide 2 mg Capsule PO (10:24)
--- NOTE | 2022-01-13 10:36 | PC.NURSE ---
CIWA 24 Nurse assisted pt to the bathroom, patient noted to have very unsteady gait and stumbling, moderate tremors, pt stated she was seeing symbols written on the bed sheets and the floor, pt stated she was hearing noises but anble to understand them. Patient scored 24 on CIWA, 2 mg PO ativan given, Pt c/o diarrhea and was given PRN Loperamide. Pt educated to not get up unassisted but to call for help, PSA sitting with pt at this time. Doctor Varghese notified by Charge Nurse GERSON Rodriguez.
[2022-01-13] MEDS: ondansetron 4 MG Tablet PO (13:11)
--- NOTE | 2022-01-13 13:12 | PC.NURSE ---
Prn CIWA note Patient continues to have nausea, vomiting, visual hallucinations and tremors. CIWA score 23, 2 mg ativan given po. Physician aware.
[2022-01-13] MEDS: folic acid 1 MG, multivitamin inj 10 ML, thiamine 100 MG in sodium chloride 0.9% 1,000 ML 252.8 MG IV (13:56)
[2022-01-13] MEDS: aspirin 325 mg Tablet PO (15:36)
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
--- NOTE | 2022-01-13 20:30 | PC.NURSE ---
patient had partial BM in pull up, patient cleaned up and given new pull up and sheets. patient CIWA 23, patient given multiple doses of Ativan PO per day shift and Dr Kwong notified. Dr. Kwong per phone with this RN stated can give ativan IM 2mg Q2 as needed. patient given IM ativan. sitter at bedside, unsteady on feet.
--- NOTE | 2022-01-13 21:03 | PC.NURSE ---
patient IV discontinued
[2022-01-13] MEDS: LORazepam 2 mg/mL INJ 1 mL IM (21:04)
[2022-01-14 06:00] VITALS: BP 122/83; PULSE 102; RESP 17; TEMP 36.8; O2SAT 93
[2022-01-14] MEDS: thiamine 100 mg Tablet PO (08:21)
[2022-01-14] MEDS: folic acid 1 mg Tablet PO (08:21)
[2022-01-14] MEDS: multivitamin therapeutic Tablet 1 TAB PO (08:21)
--- NOTE | 2022-01-14 12:46 | P.NPUPN_ITS ---
Subjective NPU Subjective: Patient presents today doing better than yesterday but still having significant withdrawal issues. Discussed how the banana bag reaction that she had was likely a reflection of her receiving the niacin a little too quickly and she was given aspirin per the pharmacy recommendation. Otherwise she is remaining on one-to-one at this moment but with her improvement we discussed the likelihood of coming off of one-to-one today. The information was submitted to the program and we discussed the possibility that if she is well enough she could leave on Sunday with her gas plant operator to go to this 1 year program. She continues to endorse some slight withdrawal symptoms but nothing like yesterday. And continues to report a commitment to her sobriety and that she does not necessarily want to go to a 1 year program but she is excepting that with all of her hospitalizations at some point she needs to do something different. Mental Status Exam 2 MSE Comments: This is an obese white female in hospital scrubs with limited grooming and eye contact.? No abnormal movements except for psychomotor retardation and diminishing tremulousness.? Cooperative with exam and in mild distress.? Speech was decreased rate and volume.? Mood described as horrible,? affect is congruent.? Thought process organized.? Thought content: Patient denied suicidal or homicidal ideation , there were no delusions reported or not ed, she denied auditory or visual hallucinations.? Attention and concentration were intact and memory appeared reliable but none were formally tested.? She is alert and oriented x 3.? Insight and judgment are limited but improving and impulse control is impaired. Vitals/I&O/Wt Last Vital Signs Temp 98.3 F 01/14/22 06:00 Pulse 102 H 01/14/22 06:00 Resp 17 01/14/22 06:00 BP 122/83 01/14/22 06:00 Pulse Ox 93 01/14/22 06:00 01/13/22 01/14/22 01/14/22 22:59 06:59 14:59 Intake Total 408.693 / 408.693 Balance 408.693 / 408.693 Weight last 48 hrs Weight 117.934 kg Data NPU : 01/13/22 05:39 01/13/22 05:39 A&P Assessment and plan (1) Alcohol withdrawal: Status: Acute (2) GERD (gastroesophageal reflux disease): Status: Acute (3) Allergic rhinitis due to allergen: Status: Acute (4) Suicidal ideation: Status: Acute (5) Depression: Status: Acute (6) COVID-19: Status: Acute (7) Chronic post-traumatic stress disorder (PTSD): Status: Chronic (8) Alcohol use disorder, severe, dependence: Status: Acute (9) Bipolar disorder: Status: Acute Qualifiers: Active/Remission status: remission status unspecified Qualified Code(s): F31.9 - Bipolar disorder, unspecified (10) Alcoholic fatty liver: Status: Acute (11) Anxiety: Status: Acute (12) Iron deficiency anemia: Status: Acute Qualifiers: Iron deficiency anemia type: other iron deficiency Qualified Code(s): D50.8 - Other iron deficiency anemias (13) Obesity (BMI 35.0-39.9 without comorbidity): Status: Chronic Plan This is a 51-year-old white female with a long history of mental health and addiction issues specifically alcohol addiction who presents after relapse with significant withdrawal sequela committed to her sobriety. 1.? Continue current medication. 2.? Continue every 15 minute checks for safety. 3.? Encourage individual, group and milieu therapies. 4.? Encourage sober living treatment after discharge at the highest level of care to which he is willing to commit. Plan for her to go to this 1 year program once her withdrawal has subsided. 5.? Placed on CIWA protocol.? Also advised staff to give Ativan 2 mg liberally. Involuntary Hold Information 96 Hour Hold: 96 Hour Involuntary Admission: No 96 Hour Hold Ending Date: 09/28/21 96 Hour Hold Ending Time: 00:48 Attestations NPU Medical Necessity Statement*: Inpatient hospitalization is medically necessary and the clinically appropriate intervention at this time. We will monitor medication to make changes as indicated. Likely length of stay 2-4 days. Coding Level of Care Code Acute Passenger Service Supervisor for Hannah Fwd Diagnoses Alcohol withdrawal F10.239 GERD (gastroesophageal reflux disease) K21.9 Allergic rhinitis due to allergen J30.9 Suicidal ideation R45.851 Depression F32.A COVID-19 U07.1 Chronic post-traumatic stress disorder (PTSD) F43.12 Alcohol use disorder, severe, dependence F10.20 Bipolar disorder F31.9 Active/Remission status: remission status unspecified Alcoholic fatty liver K70.0 Anxiety F41.9 Iron deficiency anemia D50.8 Iron deficiency anemia type: other iron deficiency Obesity (BMI 35.0-39.9 without comorbidity) E66.9
[2022-01-14 14:00] VITALS: BP 144/77; PULSE 91; RESP 17; TEMP 37.2; O2SAT 94
[2022-01-14 17:55] VITALS: BP 125/77
[2022-01-14] MEDS: OLANZapine 5 mg ODT PO (18:51)
[2022-01-14 22:00] VITALS: BP 131/72; PULSE 80; RESP 17; TEMP 37; O2SAT 95
[2022-01-15 06:00] VITALS: BP 169/95; PULSE 88; RESP 16; TEMP 36.8; O2SAT 93; BMI 37.5
--- NOTE | 2022-01-15 08:36 | PC.NURSE ---
REFUSED SCHEDULED MTV, THIAMINE, FOLIC ACID. PT STATED HER STOMACH WAS UPSET
[2022-01-15] MEDS: hyDROXYzine 25 mg Capsule 50 MG PO ×2 (12:26→20:17)
--- NOTE | 2022-01-15 12:26 | PC.NURSE ---
PRN VISTARIL 50 MG GIVEN PO PER PT C/O STATED ANXIETY. NO OUTWARD S/S OF ANXIETY NOTED
[2022-01-15 14:00] VITALS: BP 136/78; PULSE 88; RESP 19; TEMP 36.4; O2SAT 98
--- NOTE | 2022-01-15 14:00 | W.PM.NPUPNS ---
Subjective NPU Subjective: The patient presents today reporting that she is starting to feel better. We were able to take her off of one to one and she has done well since then with ambulation with limited ataxia. Been able to reduce the amount of medication she receives. She showered today and was able to manage those things independently. We discussed that we would meet with the treatment team in the morning to make sure arrangements have been made and that if she continues to be in this condition, we can support her going to the 1 year program that has been identified. She is otherwise reporting commitment to her recovery and is hopeful tomorrow will be possible from all angles. Mental Status Exam MSE Comments: This is an obese versus morbidly obese white female with hospital scrubs with adequate grooming and eye contact. No abnormal movements. Cooperative with exam in no acute distress. Speech was more normal rate and volume. Mood described as much better, affect congruent. Thought process, organized. Thought content: patient denies any suicidal or homicidal ideations, no delusions reported or noted, and denies any auditory or visual hallucinations. Attention and concentration are intact and memory is reliable but none were formally tested. She is alert and oriented three times. Insight and judgment appeared fair. Impulse control is limited but improving. Vitals/I&O/Wt Last Vital Signs Temp 97.5 F L 01/15/22 14:00 Pulse 88 01/15/22 14:00 Resp 19 H 01/15/22 14:00 BP 136/78 01/15/22 14:00 Pulse Ox 98 01/15/22 14:00 Weight last 48 hrs Weight 112.037 kg Data NPU : 01/13/22 05:39 01/13/22 05:39 A&P Assessment and plan (1) Alcohol withdrawal: Status: Acute (2) GERD (gastroesophageal reflux disease): Status: Acute (3) Allergic rhinitis due to allergen: Status: Acute (4) Suicidal ideation: Status: Acute (5) Depression: Status: Acute (6) COVID-19: Status: Acute (7) Chronic post-traumatic stress disorder (PTSD): Status: Chronic (8) Alcohol use disorder, severe, dependence: Status: Acute (9) Alcoholic fatty liver: Status: Acute (10) Bipolar disorder: Status: Acute Qualifiers: Active/Remission status: remission status unspecified Qualified Code(s): F31.9 - Bipolar disorder, unspecified (11) Anxiety: Status: Acute (12) Iron deficiency anemia: Status: Acute Qualifiers: Iron deficiency anemia type: other iron deficiency Qualified Code(s): D50.8 - Other iron deficiency anemias (13) Obesity (BMI 35.0-39.9 without comorbidity): Status: Chronic Plan This is a 51 year old white female with a long history of mental health and addiction issues who presents working through her alcohol withdrawal open to a discharge to a 1 year program. Continue current medications Encourage individual, group and milieu therapy Continue q-15 minute check for safety Recommend sober living treatment at the highest level of care to which the patient is willing to commit. If she is stable and medically cleared, will discharge with general ophthalmologist to one year sobriety program in [place]. Involuntary Hold Information 96 Hour Hold: 96 Hour Involuntary Admission: No 96 Hour Hold Ending Date: 09/28/21 96 Hour Hold Ending Time: 00:48 Attestations NPU Medical Necessity Statement*: Inpatient hospitalization is medically necessary and the clinically appropriate intervention at this time. We will monitor medications and make changes as indicated. Likely discharge is tomorrow. Coding Level of Care Code Acute Workforce Management Analyst for Chg Fwd Diagnoses Alcohol withdrawal F10.239 GERD (gastroesophageal reflux disease) K21.9 Allergic rhinitis due to allergen J30.9 Suicidal ideation R45.851 Depression F32.A COVID-19 U07.1 Chronic post-traumatic stress disorder (PTSD) F43.12 Alcohol use disorder, severe, dependence F10.20 Alcoholic fatty liver K70.0 Bipolar disorder F31.9 Active/Remission status: remission status unspecified Anxiety F41.9 Iron deficiency anemia D50.8 Iron deficiency anemia type: other iron deficiency Obesity (BMI 35.0-39.9 without comorbidity) E66.9
[2022-01-15] MEDS: acetaminophen 325 mg Tablet 650 MG PO (16:38)
[2022-01-15] MEDS: trazodone 150 mg Tablet PO (20:17)
[2022-01-15 20:23] VITALS: BP 146/96; PULSE 78; RESP 16; TEMP 36.9; O2SAT 96
[2022-01-16 05:10] VITALS: BP 134/87; PULSE 66; RESP 18; TEMP 36.9; O2SAT 97
--- NOTE | 2022-01-16 05:38 | PC.NURSE ---
Patient c/o of neck pain from bed/pillows, numbness in feet and hands, and dizziness when standing. Vitals taken and WNL. Assessed feet and hands, both dry and warm to touch, bilateral radial pulses +3 on palpation, bilateral pedal pulses +3 on palpation, capillary refill <3secs all 4 extremities. Educated patient on orthostatic hypotension and strategies for managing. Patient denies tingling/shooting pain, only states my feet are the worst, they just feel numb. Then adds, I don't think I will be ready to go home today, I think I need one more day here. Encouraged pt to discuss with provider in AM.
[2022-01-16] MEDS: fluoxetine 20 mg Capsule 40 MG PO ×2 (08:34→20:08)
[2022-01-16] MEDS: loratadine 10 mg Tablet PO (08:35)
[2022-01-16] MEDS: multivitamin therapeutic Tablet 1 TAB PO (08:35)
[2022-01-16] MEDS: ferrous sulfate EC 325 mg Tablet PO (08:35)
[2022-01-16] MEDS: folic acid 1 mg Tablet PO (08:35)
[2022-01-16] MEDS: meloxicam 7.5 mg tablet 15 MG PO (08:35)
[2022-01-16] MEDS: thiamine 100 mg Tablet PO (08:35)
--- NOTE | 2022-01-16 08:36 | PC.NURSE ---
REFUSED SCHEDULED NASAL SPRAY
[2022-01-16 13:57] VITALS: BP 156/91; PULSE 72; RESP 16; TEMP 36.9; O2SAT 98
--- NOTE | 2022-01-16 17:30 | P.NPUPN_ITS ---
Subjective NPU Subjective: Patient presents today reporting that things are going better. She did get word of acceptance to the 1 year program on Sunday. We discussed the risks benefits and alternatives of leaving tomorrow with her audiovisual librarian who will monitor from discharge till they take her to [facility] 3:17 in [place] on Sunday and she understood and agreed to proceed as is documented in this note. She reported that her withdrawal has improved greatly. Mental Status Exam MSE Comments: This is an obese versus morbidly obese white female with hospital scrubs with adequate grooming and eye contact. No abnormal movements. Cooperative with exam in no acute distress. Speech was more normal rate and volume. Mood described as pretty good, affect congruent. Thought process, organized. Thought content: patient denies any suicidal or homicidal ideations, no delusions reported or noted, and denies any auditory or visual luc lucinations. Attention and concentration are intact and memory is reliable but none were formally tested. She is alert and oriented three times. Insight and judgment appeared fair. Impulse control is limited but improving. Vitals/I&O/Wt Last Vital Signs Temp 98.9 F 01/16/22 20:24 Pulse 83 01/16/22 20:24 Resp 17 01/16/22 20:24 BP 143/101 01/16/22 20:24 Pulse Ox 97 01/16/22 20:24 Weight last 48 hrs Weight 112.037 kg Data NPU : 01/13/22 05:39 01/13/22 05:39 A&P Assessment and plan (1) Alcohol intoxication: Status: Acute (2) Alcohol withdrawal: Status: Acute (3) GERD (gastroesophageal reflux disease): Status: Acute (4) Allergic rhinitis due to allergen: Status: Acute (5) Suicidal ideation: Status: Acute (6) Depression: Status: Acute (7) COVID-19: Status: Acute (8) Chronic post-traumatic stress disorder (PTSD): Status: Chronic (9) Alcohol use disorder, severe, dependence: Status: Acute (10) Alcoholic fatty liver: Status: Acute (11) Bipolar disorder: Status: Acute Qualifiers: Active/Remission status: remission status unspecified Qualified Code(s): F31.9 - Bipolar disorder, unspecified (12) Anxiety: Status: Acute (13) Obesity (BMI 35.0-39.9 without comorbidity): Status: Chronic Plan This is a 51 year old white female with a long history of mental health and ad diction issues who presents working through her alcohol withdrawal open to a discharge to a 1 year program. Continue current medications Encourage individual, group and milieu therapy Continue q-15 minute check for safety Recommend sober living treatment at the highest level of care to which the pa tient is willing to commit. If she is stable and medically cleared, will discharge with audiovisual librarian to one year sobriety program in [place] tomorrow at 4pm. Involuntary Hold Information 96 Hour Hold: 96 Hour Involuntary Admission: No 96 Hour Hold Ending Date: 09/28/21 96 Hour Hold Ending Time: 00:48 Attestations NPU Medical Necessity Statement*: Inpatient hospitalization is medically necessary and the clinically appropriate intervention at this time. We will monitor medications and make changes as indicated. Plan discharge for tomorrow. Coding Level of Care Code Acute Client Support Administrator for Jermaineg Fwd Diagnoses Alcohol intoxication F10.929 Alcohol withdrawal F10.239 GERD (gastroesophageal reflux disease) K21.9 Allergic rhinitis due to allergen J30.9 Suicidal ideation R45.851 Depression F32.A COVID-19 U07.1 Chronic post-traumatic stress disorder (PTSD) F43.12 Alcohol use disorder, severe, dependence F10.20 Alcoholic fatty liver K70.0 Bipolar disorder F31.9 Active/Remission status: remission status unspecified Anxiety F41.9 Obesity (BMI 35.0-39.9 without comorbidity) E66.9
[2022-01-16] MEDS: trazodone 150 mg Tablet PO (20:08)
[2022-01-16] MEDS: hyDROXYzine 25 mg Capsule 50 MG PO (20:08)
[2022-01-16] MEDS: fluticasone nasal spray 16gm Btl 1 SPRAY INTRANASAL (20:09)
[2022-01-16 20:24] VITALS: BP 143/101; PULSE 83; RESP 17; TEMP 37.2; O2SAT 97
[2022-01-17 06:00] VITALS: RESP 18
[2022-01-17] MEDS: fluoxetine 20 mg Capsule 40 MG PO (08:40)
[2022-01-17] MEDS: meloxicam 7.5 mg tablet 15 MG PO (08:40)
[2022-01-17] MEDS: loratadine 10 mg Tablet PO (08:40)
[2022-01-17] MEDS: multivitamin therapeutic Tablet 1 TAB PO (08:40)
[2022-01-17] MEDS: folic acid 1 mg Tablet PO (08:40)
[2022-01-17] MEDS: thiamine 100 mg Tablet PO (08:40)
[2022-01-17] MEDS: ferrous sulfate EC 325 mg Tablet PO (08:40)
[2022-01-17] MEDS: fluticasone nasal spray 16gm Btl 1 SPRAY INTRANASAL (08:41)
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
[2022-01-17 13:57] VITALS: RESP 18
== END 2022-01-17 15:15 | disposition home or self-care (01) | DRG 885 ==
LOC: ER 05:14 → NP 06:30
PROVIDERS: Admitting Provider Psychiatry & Neurology Psychiatry; Emergency Provider Emergency Medicine; Visit Provider Psychiatry & Neurology Psychiatry
DX: F31.9 Bipolar disorder, unspecified (principal); R45.851 Suicidal ideations; F10.239 Alcohol dependence with withdrawal, unspecified; F43.12 Post-traumatic stress disorder, chronic; F41.9 Anxiety disorder, unspecified; R03.0 Elevated blood-pressure reading, without diagnosis of hypertension; D50.8 Other iron deficiency anemias; K70.0 Alcoholic fatty liver; E66.9 Obesity, unspecified; Z68.37 Body mass index [BMI] 37.0-37.9, adult; Z59.00 Homelessness unspecified; Z63.0 Problems in relationship with spouse or partner
CPT/HCPCS: 80053; 80306; 80307; 83690; 85025; 96360; 96372; 97150; 97165; 99285; J2060; J2405; J3411; J3490; J7030; Q0162

== ENCOUNTER 2022-08-28 07:02 | Emergency (ER) | payer MEDICAID, SELFPAY ==
[2022-08-28 07:02] VITALS: BP 124/82; PULSE 68; RESP 16; TEMP 36.6; O2SAT 95; BMI 29.6
[2022-08-28] MEDS: ondansetron 2 mg/ML SDV 2 mL 4 MG IVP (08:07)
[2022-08-28] MEDS: famotidine 20 mg/2 mL INJ 40 MG IVP (08:07)
[2022-08-28] MEDS: sodium chloride 0.9% 1,000 ML 999 ML IV (08:07)
[2022-08-28 08:14] LABS: Basophils % 0.4 %; Eosinophils # 0.1 10^3/uL (0.0-0.8); Eosinophils % 1.9 %; Hemoglobin 15.3 g/dL (11.5-15.3); Lymphocytes # 1.4 10^3/uL (0.8-4.8); Mean Corpuscular HGB Conc 32.6 g/dL (30.0-36.0); Mean Corpuscular Hemoglobin 30.6 pg (28.0-34.0); Mean Platelet Volume 9.4 fL (7.4-10.4); Monocytes # 0.3 10^3/uL (0.2-0.9); Neutrophils # 3.01 10^3/uL (1.8-7.7); Neutrophils % 62.5 %; Nucleated Red Blood Cells % 0 %; Platelet Count 198 10^3/cmm (130-400); Red Cell Distribution Width 12.5 % (12.1-15.1); White Blood Count 4.8 10^3/uL (4.0-10.0)
[2022-08-28 08:31] LABS: Alanine Aminotransferase 106 U/L (0-33); Albumin Level 4.4 g/dL (3.5-5.2); Alkaline Phosphatase 175 U/L (35-105); Aspartate Amino Transferase 89 U/L (0-32); Blood Urea Nitrogen 10 mg/dL (6-20); Calcium 8.7 mg/dL (8.5-10.5); Carbon Dioxide 27 mmol/L (22-29); Chloride 100 mmol/L (98-107); Globulin 3.3 g/dL (1.3-4.6); Glomerular Filtration Rate 88.6 mL/min (90-130); Glucose 96 mg/dL (65-115); Osmolality Calculated 291 mOsm/kg (285-295); Sodium 141 mmol/L (136-145); Total Bilirubin 0.6 mg/dL (0.15-1.2); Total Protein 7.7 g/dL (6.6-8.7)
[2022-08-28 08:57] LABS: Alcohol Level 346 mg/dL (0-10)
[2022-08-28 09:44] LABS: Amphetamines Screen Urine Negative (Negative); Barbiturates Screen Urine Negative (Negative); Benzodiazepines Screen Urine Negative (Negative); Cocaine Screen Urine Negative (Negative); Opiate Screen Urine Negative (Negative); PCP Screen Urine Negative (Negative); THC Screen Urine Negative (Negative)
--- NOTE | 2022-08-28 10:17 | ED_ITS ---
HPI - Alcohol General: Chief Complaint: Alcohol Stated Complaint: ETOH Time Seen by Provider: 08/28/22 07:10 Source: patient Mode of arrival: ambulatory History of Present Illness: 52-year-old female presents emergency room acutely intoxicated. She is difficult to arouse she does admit to having drank heavily last night large amount of vodka. 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 Patient arrived at 7:02 AM she could not tell me where she had been at. She did improved after she had been here a couple of hours she did follow verbal commands. MD complaint: alcohol intoxication Last drink: Just [employer] Chronic alcohol use: Yes Previous visits for alcohol intoxication: Yes Recent trauma: No Associated symptoms: Deny abdominal pain, depression, diaphoresis, hematemesis, involuntary movements, melena, nausea, seizure-like activity, suicidal ideation, syncope or vomiting Treatments prior to arrival: none Review of Systems Const: Denies: diaphoresis ENMT: Denies: throat pain, ear or mastoid pain, nasal discharge or nasal congestion Card: Denies: syncope Resp: Denies: dyspnea, productive cough or non-productive cough GI: Denies: abdominal pain, nausea, vomiting, hematemesis or melena : Denies: flank pain, difficulty voiding, dysuria, urinary frequency or urinary urgency Skin/Breast: Denies: rash or pruritus Neuro: Denies: seizure-like activity or involuntary movements Psych: Denies: depression or suicidal ideation [facility] ED PFSH: Medical History Alcohol dependence Has been prescribed antabuse Alcohol use disorder, severe, dependence Allergic rhinitis due to allergen Anxiety Bipolar disorder Chronic post-traumatic stress disorder (PTSD) COVID-19 Positive Covid test 12/02/2021. Depressive disorder GERD (gastroesophageal reflux disease) History of Wernicke's encephalopathy Hx of cholecystitis Iron deficiency anemia Left knee pain Obesity (BMI 35.0-39.9 without comorbidity) Osteoarthritis involving multiple joints on both sides of body Psychiatric care Recurrent pancreatitis Suicidal thoughts in the past Surgical History History of Hx of gastric bypass Hx of hernia repair Hx of tubal ligation Hx of unilateral salpingectomy Right Family History Mother Diabetes Hypertension Father Diabetes Heart disease Hypertension Grandfather Diabetes Maternal and paternal Other Thyroid disease Denies family history of Colon cancer Ovarian cancer Breast cancer Uterine cancer Stroke Social History Smoking and tobacco status: never smoked Female Reproductive History: Date of last menstrual period: 05/25/21 Physical Exam Const: ORIENTATION/CONSCIOUSNESS: Yes awake HENMT: COMMON NORMALS: normocephalic, atraumatic and hearing grossly normal bilaterally HEAD & SCALP: normocephalic and atraumatic Eye: COMMON NORMALS: Equal, round and reactive pupils present, EOMs intact bilaterally, conjunctivae normal and no scleral icterus CONJUNCTIVA: Yes conjunctivae normal PUPIL: Yes Equal, round and reactive pupils present Neck/C-Spine: COMMON NORMALS: full ROM, no lymphadenopathy, supple and no JVD Lymph: LYMPHATIC: no lymphadenopathy noted and no lymphedema noted Cardio: COMMON NORMALS: no JVD, regular rate, regular rhythm and No murmurs present (Cardio) RATE: regular rate RHYTHM: regular rhythm GI: COMMON NORMALS: Soft to palpation and No hepatosplenomegaly present AUSCULTATION: Yes normoactive bowel sounds PALPATION: Yes Soft to palpation, No Tenderness to palpation present (GI), No Guarding due to palpation present (GI) and Yes No hepatosplenomegaly present Extremity: COMMON NORMALS: normal to inspection, capillary refill normal, no clubbing, cyanosis or edema, no calf tenderness and no pedal edema Skin: COMMON NORMALS: no rashes or lesions noted GENERAL SKIN EXAM: no rashes or lesions noted Course Vital Signs: Vital signs: Vital Signs Temperature 97.9 F 08/28/22 07:02 Pulse Rate 68 08/28/22 07:02 Respiratory Rate 16 08/28/22 07:02 Blood Pressure 124/82 08/28/22 07:02 Pulse Oximetry 95 08/28/22 07:02 Oxygen Delivery Me thod 08/28/22 07:02 MDM - Alcohol Medical Decision Making Patient significant intoxicated order fluids and IV banana bag before all the treatments could be completed patient was much more awake and alert wishes to leave. When talked to encourage says she refuses. Also asked her about any plans or would wish or desire to stop drinking encouraged her to consider [facility]. She tells me she is already previously participated in those programs and has no interest in pursuing them whatsoever. She is demanding to leave. Patient left AGAINST MEDICAL ADVICE. Medical Records I reviewed the patient's medical records. Lab Data I reviewed the patient's lab results. : 08/28/22 07:50 08/28/22 07:50 Laboratory Results WBC 4.8 10^3/uL (4.0-10.0) 08/28/22 07:50 RBC 5.00 10^6/uL (4.1-5.3) 08/28/22 07:50 Hgb 15.3 g/dL (11.5-15.3) 08/28/22 07:50 Hct 47.0 % (37.0-47.0) 08/28/22 07:50 MCV 94.0 fl (81-99) 08/28/22 07:50 MCH 30.6 pg (28.0-34.0) 08/28/22 07:50 MCHC 32.6 g/dL (30.0-36.0) 08/28/22 07:50 RDW 12.5 % (12.1-15.1) 08/28/22 07:50 Plt Count 198 10^3/cmm (130-400) 08/28/22 07:50 MPV 9.4 fL (7.4-10.4) 08/28/22 07:50 Neut % (Auto) 62.5 % 08/28/22 07:50 Lymph % (Auto) 29.0 % 08/28/22 07:50 Marshall % (Auto) 6.0 % 08/28/22 07:50 Eos % (Auto) 1.9 % 08/28/22 07:50 Baso % (Auto) 0.4 % 08/28/22 07:50 Neut # (Auto) 3.01 10^3/uL (1.8-7.7) 08/28/22 07:50 Lymph # (Auto) 1.4 10^3/uL (0.8-4.8) 08/28/22 07:50 Marshall # (Auto) 0.3 10^3/uL (0.2-0.9) 08/28/22 07:50 Eos # (Auto) 0.1 10^3/uL (0.0-0.8) 08/28/22 07:50 Baso # (Auto) 0.0 10^3/uL (0.0-0.1) 08/28/22 07:50 Nucleated RBC % (auto) 0 % 08/28/22 07:50 Nucleated RBCs # 0.0 /100WBC 08/28/22 07:50 Sodium 141 mmol/L (136-145) 08/28/22 07:50 Potassium 4.0 mmol/L (3.5-5.1) 08/28/22 07:50 Chloride 100 mmol/L (98-107) 08/28/22 07:50 Carbon Dioxide 27 mmol/L (22-29) 08/28/22 07:50 Anion Gap 18.0 (5-19) 08/28/22 07:50 BUN 10 mg/dL (6-20) 08/28/22 07:50 Creatinine 0.7 mg/dL (0.5-0.9) 08/28/22 07:50 GFR Calculation 88.6 mL/min (90-130) L 08/28/22 07:50 Glucose 96 mg/dL (65-115) 08/28/22 07:50 Calculated Osmolality 291 mOsm/kg (285-295) 08/28/22 07:50 Calcium 8.7 mg/dL (8.5-10.5) 08/28/22 07:50 Total Bilirubin 0.6 mg/dL (0.15-1.2) 08/28/22 07:50 AST 89 U/L (0-32) H 08/28/22 07:50 ALT 106 U/L (0-33) H 08/28/22 07:50 Alkaline Phosphatase 175 U/L (35-105) H 08/28/22 07:50 Total Protein 7.7 g/dL (6.6-8.7) 08/28/22 07:50 Albumin 4.4 g/dL (3.5-5.2) 08/28/22 07:50 Globulin 3.3 g/dL (1.3-4.6) 08/28/22 07:50 Urine Opiates Screen Negative ng/mL (Negative) 08/28/22 08:55 Ur Barbiturates Screen Negative ng/mL (Negative) 08/28/22 08:55 Ur Phencyclidine Scrn Negative ng/mL (Negative) 08/28/22 08:55 Ur Amphetamines Screen Negative ng/mL (Negative) 08/28/22 08:55 U Benzodiazepines Scrn Negative ng/mL (Negative) 08/28/22 08:55 Urine Cocaine Screen Negative ng/mL (Negative) 08/28/22 08:55 U Marijuana (THC) Screen Negative ng/mL (Negative) 08/28/22 08:55 Ethyl Alcohol 346 mg/dL (0-10) H* 08/28/22 07:50 Discharge Plan Discharge Patient Disposition: Left Against Medical Advice Clinical Impression: Alcoholic intoxication, Alcohol abuse Condition: Stable Prescriptions: No Action loratadine 10 mg tablet 10 mg PO DAILY Qty: 30 3RF fluticasone propionate 50 mcg/actuation spray,suspension 1 spray intranasal BID Qty: 16 2RF Rx Instructions: administer into each nostril pantoprazole 40 mg tablet,delayed release (DR/EC) 40 mg PO DAILY PRN (Reason: acid reflux) Qty: 30 3RF Thera 400 mcg tablet 1 tab PO DAILY 30 Days Qty: 30 12RF ferrous sulfate 325 mg (65 mg iron) tablet 325 mg PO DAILY 90 Days Qty: 90 0RF fluoxetine 20 mg capsule 80 mg PO DAILY Qty: 120 5RF Rx Instructions: take all 4 caps together each morning meloxicam 15 mg tablet See Rx Instructions .ROUTE .COMPLEX Qty: 90 0RF Dose Instruction: TAKE ONE (1) TABLET BY MOUTH ONCE DAILY Rx Instructions: TAKE ONE (1) TABLET BY MOUTH ONCE DAILY folic acid 1 mg Tablet 1 mg PO DAILY Qty: 90 0RF hydroxyzine pamoate 50 mg capsule 50 mg PO BEDTIME PRN (Reason: ANXIETY/INSOMNIA) trazodone 150 mg tablet 150 mg PO BEDTIME Vitamin B-1 (mononitrate) 100 mg Tablet 100 mg PO DAILY 30 Days Qty: 30 1RF Discharge Diet: Usual diet Discharge Activity: Increase activity as tolerated Patient Instructions: Alcoholism, Abuse of Alcohol (ED) Activity Restrictions/Additional Instructions: Your blood alcohol on arrival in the emergency room today was 346 mg/dL. This is over 4 times the legal limit for operating a motor vehicle in the state of [place]. Strongly encourage pursuing outpatient treatment or participating in a abstinence program at facilities like [facility] or alcoholics anonymous meetings. Coding Level of Care Code ED Lining Baster for Hannah Fulton
== END 2022-08-28 10:20 | disposition left against medical advice (07) ==
PROVIDERS: Emergency Provider Family Medicine
DX: F10.120 Alcohol abuse with intoxication, uncomplicated (principal); Y90.8 Blood alcohol level of 240 mg/100 ml or more; Z53.29 Procedure and treatment not carried out because of patient's decision for other reasons
CPT/HCPCS: 80053; 80306; 80307; 85025; 96361; 96374; 96375; 99284; J2405; J3490; J7030

== ENCOUNTER 2022-08-29 04:10 | Inpatient (IN) | payer MEDICAID, SELFPAY ==
[2022-08-29 04:12] VITALS: BP 148/91; PULSE 88; RESP 18; TEMP 37.4; O2SAT 99; BMI 39.5
[2022-08-29 04:41] LABS: Basophils % 0.2 %; Eosinophils # 0.1 10^3/uL (0.0-0.8); Hematocrit 39.7 % (37.0-47.0); Hemoglobin 13.5 g/dL (11.5-15.3); Lymphocytes % 10.9 %; Mean Corpuscular Hemoglobin 30.9 pg (28.0-34.0); Mean Corpuscular Volume 90.8 fl (81-99); Mean Platelet Volume 9.5 fL (7.4-10.4); Neutrophils # 7.39 10^3/uL (1.8-7.7); Neutrophils % 77.6 %; Nucleated Red Blood Cells % 0 %; Platelet Count 185 10^3/cmm (130-400); Red Blood Count 4.37 10^6/uL (4.1-5.3); Red Cell Distribution Width 12.3 % (12.1-15.1); White Blood Count 9.5 10^3/uL (4.0-10.0)
--- NOTE | 2022-08-29 04:44 | W.ED.PSYCHS ---
HPI - Psych General: Chief Complaint: Psychiatric Symptoms Stated Complaint: abdominal pain, SI Time Seen by Provider: 08/29/22 04:11 Source: patient and EMS Mode of arrival: EMS Limitations: no limitations History of Present Illness: 52-year-old female with a history of alcoholism she states that today she has been having some diffuse abdominal pain she states that she has been in long term and has not had a drink and was feeling anxious states she is also having severe depression along with suicidal thoughts she has no specific plan. She states she does feel like she may harm herself though. Associated symptoms: Reports depression and suicidal ideation Review of Systems Const: Denies: fever(s), chills, body aches or change in appetite Eyes: Denies: blurry vision or eye discomfort ENMT: Denies: throat pain or dental pain Card: Denies: chest pain Resp: Denies: dyspnea GI: Denies: abdominal pain, nausea, vomiting or diarrhea : Denies: dysuria Musc: Denies: neck pain or back pain Skin/Breast: Denies: rash Neuro: Denies: headache(s) Psych: Reports: depression and suicidal ideation Marlon/Lymph: Denies: easy bruising All/Imm: Denies: urticaria PFSH ED PFSH: Medical History Alcohol dependence Has been prescribed antabuse Alcohol use disorder, severe, dependence Allergic rhinitis due to allergen Anxiety Bipolar disorder Chronic post-traumatic stress disorder (PTSD) COVID-19 Positive Covid test 12/02/2021. Depressive disorder GERD (gastroesophageal reflux disease) History of Wernicke's encephalopathy Hx of cholecystitis Iron deficiency anemia Left knee pain Obesity (BMI 35.0-39.9 without comorbidity) Osteoarthritis involving multiple joints on both sides of body Psychiatric care Recurrent pancreatitis Suicidal thoughts in the past Surgical History History of Hx of gastric bypass Hx of hernia repair Hx of tubal ligation Hx of unilateral salpingectomy Right Family History Mother Diabetes Hypertension Father Diabetes Heart disease Hypertension Grandfather Diabetes Maternal and paternal Other Thyroid disease Denies family history of Colon cancer Ovarian cancer Breast cancer Uterine cancer Stroke Social History Smoking and tobacco status: never smoked Female Reproductive History: Date of last menstrual period: 05/25/21 Physical Exam Const: COMMON NORMALS: no acute distress, patient oriented x3 and healthy appearing HENMT: COMMON NORMALS: normocephalic and atraumatic HEAD & SCALP: normocephalic and atraumatic Eye: COMMON NORMALS: Equal, round and reactive pupils present and EOMs intact bilaterally PUPIL: Yes Equal, round and reactive pupils present Neck/C-Spine: COMMON NORMALS: full ROM and supple Chest: COMMONS NORMALS: normal inspection of the chest and normal palpation of entire chest wall Resp: COMMON NORMALS: normal respiratory effort, No retractions, No use of accessory muscles and clear to auscultation bilaterally AUSCULTATION: clear to auscultation bilaterally Cardio: COMMON NORMALS: regular rate, regular rhythm and No murmurs present (Cardio) RATE: regular rate RHYTHM: regular rhythm GI: COMMON NORMALS: Normal to inspection, nondistended, normoactive bowel sounds present, Soft to palpation, non-tender and no masses PALPATION: Yes Soft to palpation Extremity: COMMON NORMALS: normal to inspection and full ROM Neuro: COMMON NORMALS: patient oriented x3, moves all extremities and no focal motor deficits Psych: COMMON NORMALS: mental status grossly normal, Normal thought process present and cooperative THOUGHT PROCESS: Normal thought process present THOUGHT CONTENT: Yes Suicidality present Skin: COMMON NORMALS: no rashes or lesions noted and no wounds GENERAL SKIN EXAM: no rashes or lesions noted Course Vital Signs: Vital signs: Vital Signs Temperature 99.4 F 08/29/22 04:12 Pulse Rate 88 08/29/22 04:12 Respiratory Rate 18 08/29/22 04:12 Blood Pressure 148/91 08/29/22 04:12 Pulse Oximetry 99 08/29/22 04:12 Oxygen Delivery Me thod 08/29/22 04:12 MDM - Psych Medical Decision Making Patient presents here with suicidal ideation she states she has a plan of trying to drink herself to . She is well-appearing here medically cleared will admit to psychiatric unit. Lab Data : 08/29/22 04:37 08/29/22 04:37 Laboratory Results WBC 9.5 10^3/uL (4.0-10.0) 08/29/22 04:37 RBC 4.37 10^6/uL (4.1-5.3) 08/29/22 04:37 Hgb 13.5 g/dL (11.5-15.3) 08/29/22 04:37 Hct 39.7 % (37.0-47.0) 08/29/22 04:37 MCV 90.8 fl (81-99) 08/29/22 04:37 MCH 30.9 pg (28.0-34.0) 08/29/22 04:37 MCHC 34.0 g/dL (30.0-36.0) 08/29/22 04:37 RDW 12.3 % (12.1-15.1) 08/29/22 04:37 Plt Count 185 10^3/cmm (130-400) 08/29/22 04:37 MPV 9.5 fL (7.4-10.4) 08/29/22 04:37 Neut % (Auto) 77.6 % 08/29/22 04:37 Lymph % (Auto) 10.9 % 08/29/22 04:37 [place] % (Auto) 10.0 % 08/29/22 04:37 Eos % (Auto) 1.0 % 08/29/22 04:37 Baso % (Auto) 0.2 % 08/29/22 04:37 Neut # (Auto) 7.39 10^3/uL (1.8-7.7) 08/29/22 04:37 Lymph # (Auto) 1.0 10^3/uL (0.8-4.8) 08/29/22 04:37 [place] # (Auto) 1.0 10^3/uL (0.2-0.9) H 08/29/22 04:37 Eos # (Auto) 0.1 10^3/uL (0.0-0.8) 08/29/22 04:37 Baso # (Auto) 0.0 10^3/uL (0.0-0.1) 08/29/22 04:37 Nucleated RBC % (auto) 0 % 08/29/22 04:37 Nucleated RBCs # 0.0 /100WBC 08/29/22 04:37 Sodium 134 mmol/L (136-145) L 08/29/22 04:37 Potassium 4.3 mmol/L (3.5-5.1) 08/29/22 04:37 Chloride 95 mmol/L (98-107) L 08/29/22 04:37 Carbon Dioxide 25 mmol/L (22-29) 08/29/22 04:37 Anion Gap 18.3 (5-19) 08/29/22 04:37 BUN 9 mg/dL (6-20) 08/29/22 04:37 Creatinine 0.6 mg/dL (0.5-0.9) 08/29/22 04:37 GFR Calculation 105.8 mL/min (90-130) 08/29/22 04:37 Glucose 111 mg/dL (65-115) 08/29/22 04:37 Calculated Osmolality 277 mOsm/kg (285-295) L 08/29/22 04:37 Calcium 8.5 mg/dL (8.5-10.5) 08/29/22 04:37 Total Bilirubin 1.8 mg/dL (0.15-1.2) H 08/29/22 04:37 AST 111 U/L (0-32) H 08/29/22 04:37 ALT 113 U/L (0-33) H 08/29/22 04:37 Alkaline Phosphatase 209 U/L (35-105) H 08/29/22 04:37 Total Protein 6.6 g/dL (6.6-8.7) 08/29/22 04:37 Albumin 3.8 g/dL (3.5-5.2) 08/29/22 04:37 Globulin 2.8 g/dL (1.3-4.6) 08/29/22 04:37 Lipase 12 U/L (13-60) L 08/29/22 04:37 Salicylates < 0.3 mg/dL (3-10) L 08/29/22 04:37 Urine Opiates Screen Negative ng/mL (Negative) 08/29/22 Unknown Acetaminophen < 5.0 ug/mL (10-30) L 08/29/22 04:37 Ur Barbiturates Screen Negative ng/mL (Negative) 08/29/22 Unknown Ur Phencyclidine Scrn Negative ng/mL (Negative) 08/29/22 Unknown Ur Amphetamines Screen Negative ng/mL (Negative) 08/29/22 Unknown U Benzodiazepines Scrn Positive ng/mL (Negative) H 08/29/22 Unknown Urine Cocaine Screen Negative ng/mL (Negative) 08/29/22 Unknown U Marijuana (THC) Screen Negative ng/mL (Negative) 08/29/22 Unknown Ethyl Alcohol < 10 mg/dL (0-10) 08/29/22 04:37 Discharge Plan Discharge Patient Disposition: Admitted As Inpatient Clinical Impression: Suicidal ideation Condition: Stable Prescriptions: No Action loratadine 10 mg tablet 10 mg PO DAILY Qty: 30 3RF fluticasone propionate 50 mcg/actuation spray,suspension 1 spray intranasal BID Qty: 16 2RF Rx Instructions: administer into each nostril pantoprazole 40 mg tablet,delayed release (DR/EC) 40 mg PO DAILY PRN (Reason: acid reflux) Qty: 30 3RF Thera 400 mcg tablet 1 tab PO DAILY 30 Days Qty: 30 12RF ferrous sulfate 325 mg (65 mg iron) tablet 325 mg PO DAILY 90 Days Qty: 90 0RF fluoxetine 20 mg capsule 80 mg PO DAILY Qty: 120 5RF Rx Instructions: take all 4 caps together each morning meloxicam 15 mg tablet See Rx Instructions .ROUTE .COMPLEX Qty: 90 0RF Dose Instruction: TAKE ONE (1) TABLET BY MOUTH ONCE DAILY Rx Instructions: TAKE ONE (1) TABLET BY MOUTH ONCE DAILY hydroxyzine pamoate 50 mg capsule 50 mg PO BEDTIME PRN (Reason: ANXIETY/INSOMNIA) trazodone 150 mg tablet 150 mg PO BEDTIME Coding Level of Care Code ED [employer]er for Hannah Fwashley Exam Comprehensive
[2022-08-29] MEDS: haloperidol inj 5 mg/mL INJ 1 mL IM (04:49)
[2022-08-29] MEDS: LORazepam 2 mg Tablet PO ×2 (04:50→15:58)
[2022-08-29 04:56] LABS: Amphetamines Screen Urine Negative (Negative); Barbiturates Screen Urine Negative (Negative); Benzodiazepines Screen Urine Positive (Negative); Cocaine Screen Urine Negative (Negative); Opiate Screen Urine Negative (Negative); PCP Screen Urine Negative (Negative); THC Screen Urine Negative (Negative)
[2022-08-29 05:01] LABS: Alanine Aminotransferase 113 U/L (0-33); Albumin Level 3.8 g/dL (3.5-5.2); Alkaline Phosphatase 209 U/L (35-105); Anion Gap 18.3 (5-19); Aspartate Amino Transferase 111 U/L (0-32); Blood Urea Nitrogen 9 mg/dL (6-20); Calcium 8.5 mg/dL (8.5-10.5); Carbon Dioxide 25 mmol/L (22-29); Chloride 95 mmol/L (98-107); Creatinine Clr Calc Pharmacy 151.4303; Globulin 2.8 g/dL (1.3-4.6); Glomerular Filtration Rate 105.8 mL/min (90-130); Glucose 111 mg/dL (65-115); Osmolality Calculated 277 mOsm/kg (285-295); Potassium 4.3 mmol/L (3.5-5.1); Sodium 134 mmol/L (136-145); Total Bilirubin 1.8 mg/dL (0.15-1.2); Total Protein 6.6 g/dL (6.6-8.7)
[2022-08-29 05:05] LABS: Acetaminophen < 5.0 ug/mL (10-30); Alcohol Level < 10 mg/dL (0-10); Salicylate < 0.3 mg/dL (3-10)
[2022-08-29 05:20] LABS: Lipase 12 U/L (13-60)
[2022-08-29 06:31] VITALS: BP 125/86; PULSE 91; RESP 16; O2SAT 98
--- NOTE | 2022-08-29 06:42 | PC.NURSE ---
report given to NPU.
[2022-08-29 07:50] VITALS: BP 144/93; PULSE 85; RESP 17; TEMP 36.6; O2SAT 97
[2022-08-29 14:00] VITALS: BP 139/93; PULSE 90; RESP 16; TEMP 36.9; O2SAT 96
[2022-08-29] MEDS: ondansetron 4 MG Tablet PO (15:58)
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
[2022-08-30 06:00] VITALS: BP 114/80; PULSE 80; RESP 18; TEMP 36.6; O2SAT 96
[2022-08-30] MEDS: multivitamin therapeutic Tablet 1 TAB PO (08:05)
[2022-08-30] MEDS: fluoxetine 20 mg Capsule 80 MG PO (08:05)
[2022-08-30] MEDS: meloxicam 7.5 mg tablet 15 MG PO (08:05)
[2022-08-30] MEDS: thiamine 100 mg Tablet PO (08:05)
[2022-08-30] MEDS: folic acid 1 mg Tablet PO (08:05)
[2022-08-30] MEDS: acetaminophen 325 mg Tablet 650 MG PO (08:48)
[2022-08-30] MEDS: LORazepam 2 mg Tablet PO (08:48)
[2022-08-30] MEDS: ondansetron 4 MG Tablet PO (08:48)
--- NOTE | 2022-08-30 12:18 | W.PM.NPUPNS ---
Subjective NPU Subjective: Patient presents today reporting that she has been in communication with her previous program. They are reporting a plan to receive her back and she is optimistic about that plan. We discussed continuing her medications as they are and she reported having enough medications to initiate the process. She reports she is eating and sleeping better. She endorses only having drank for about 3 days and not having any significant withdrawal at this point. Mental Status Exam MSE Comments: This is an obese white female in hospital scrubs with adequate grooming and eye contact.? No abnormal movements except for mild psychomotor retardation. More cooperative with exam and in full acute distress.? Speech was slightly decreased rate and volume.? Mood described as better,? affect is congruent and less irritable.? Thought process organized.? Thought content: Patient denied suicidal or homicidal ideations, there were no delusions reported or noted, she denied auditory or visual hallucinations.? Attention and concentration were intact and memory appeared reliable but none were formally tested.? She is alert and oriented x 3.? Insight and judgment are limited and impulse control is impaired. Vitals/I&O/Wt Last Vital Signs Temp 97.9 F 08/30/22 06:00 Pulse 80 08/30/22 06:00 Resp 18 08/30/22 06:00 BP 114/80 08/30/22 06:00 Pulse Ox 96 08/30/22 06:00 O2 Del Method 08/30/22 06:00 Data NPU : 08/29/22 04:37 08/29/22 04:37 A&P Assessment and plan (1) Alcohol intoxication: (2) Alcohol withdrawal: (3) GERD (gastroesophageal reflux disease): (4) Allergic rhinitis due to allergen: (5) Suicidal ideation: (6) Depression: (7) COVID-19: (8) Chronic post-traumatic stress disorder (PTSD): (9) Alcohol use disorder, severe, dependence: (10) Alcoholic fatty liver: (11) Bipolar disorder: Qualifiers: Active/Remission status: remission status unspecified Qualified Code(s): F31.9 - Bipolar disorder, unspecified (12) Anxiety: (13) Obesity (BMI 35.0-39.9 without comorbidity): Plan This is a 51 year old white female with a long history of mental health and addiction issues who presents working through her alcohol withdrawal open to a discharge to a [facility] sober living program again. Continue current medications Encourage individual, group and milieu therapy Continue q-15 minute check for safety Recommend sober living treatment at the highest level of care to which the patient is willing to commit. She was accepted back at her previous program. We are making arrangements for her to go back tomorrow. Continue CIWA protocol Involuntary Hold Information 96 Hour Hold: 96 Hour Involuntary Admission: No 96 Hour Hold Ending Date: 09/28/21 96 Hour Hold Ending Time: 00:48 Attestations NPU Medical Necessity Statement*: Inpatient hospitalization is medically necessary and the clinically appropriate intervention at this time. We will monitor medication to make changes as indicated. Likely length of stay 1-3 days. Coding Level of Care Code Acute Human Performance Professor for Chg Fwd Diagnoses Alcohol intoxication F10.929 Alcohol withdrawal F10.239 GERD (gastroesophageal reflux disease) K21.9 Allergic rhinitis due to allergen J30.9 Suicidal ideation R45.851 Depression F32.A COVID-19 U07.1 Chronic post-traumatic stress disorder (PTSD) F43.12 Alcohol use disorder, severe, dependence F10.20 Alcoholic fatty liver K70.0 Bipolar disorder F31.9 Active/Remission status: remission status unspecified Anxiety F41.9 Obesity (BMI 35.0-39.9 without comorbidity) E66.9
[2022-08-30 14:00] VITALS: BP 146/97; PULSE 74; RESP 18; O2SAT 97
[2022-08-30 22:00] VITALS: BP 116/80; PULSE 79; RESP 17; TEMP 36.9; O2SAT 96
[2022-08-31 05:57] VITALS: BP 116/80; PULSE 79; RESP 17; TEMP 36.9; O2SAT 96
[2022-08-31 06:33] VITALS: BP 114/76; PULSE 80; RESP 17; TEMP 37; O2SAT 95
[2022-08-31] MEDS: folic acid 1 mg Tablet PO (07:42)
[2022-08-31] MEDS: multivitamin therapeutic Tablet 1 TAB PO (07:42)
[2022-08-31] MEDS: meloxicam 7.5 mg tablet 15 MG PO (07:42)
[2022-08-31] MEDS: fluoxetine 20 mg Capsule 80 MG PO (07:42)
[2022-08-31] MEDS: thiamine 100 mg Tablet PO (07:42)
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
[2022-08-31 07:47] VITALS: BP 114/76; PULSE 80; RESP 17; TEMP 37; O2SAT 95
== END 2022-08-31 08:05 | disposition home or self-care (01) | DRG 897 ==
LOC: ER 05:39 → NP 06:03
PROVIDERS: Admitting Provider Psychiatry & Neurology Psychiatry; Emergency Provider Emergency Medicine; Visit Provider Psychiatry & Neurology Psychiatry
DX: F10.229 Alcohol dependence with intoxication, unspecified (principal); R45.851 Suicidal ideations; K70.0 Alcoholic fatty liver; F41.9 Anxiety disorder, unspecified; F31.9 Bipolar disorder, unspecified; F43.12 Post-traumatic stress disorder, chronic; Z86.16 Personal history of COVID-19; E66.9 Obesity, unspecified; Z68.39 Body mass index [BMI] 39.0-39.9, adult; Z98.84 Bariatric surgery status; K21.9 Gastro-esophageal reflux disease without esophagitis; Z79.891 Long term (current) use of opiate analgesic
CPT/HCPCS: 80053; 80306; 80307; 83690; 85025; 96372; 97150; 97165; 99285; J1630; J3411; Q0162